=== PATIENT | female | born 1945 | race Caucasian/White ===

== ENCOUNTER 2018-07-20 18:01 | Emergency (ER) | payer OTHER ==
[2018-07-20] MEDS ORDERED: IPRATROPIUM BROM 0.5MG/2.5ML ONE (18:33)
[2018-07-20] MEDS ORDERED: LEVALBUTEROL 1.25 MG/3 ML NEB ONE (18:33)
--- NOTE | 2018-07-20 19:09 | RAD REPORT ---
EXAM DESCRIPTION: RAD - Chest Pa And Lat (2 Views) - 07/20/2018 7:02 pm CLINICAL HISTORY: Cough;Congestion Chest pain. COMPARISON: Chest Pa And Lat (2 Views) dated 05/07/2018; Chest Pa And Lat (2 Views) dated 01/23/2017; C HEST SINGLE VIEW dated 10/31/2014 FINDINGS: The lungs are emphysematous with mild linear opacities in both lung bases likely represent ing subsegmental atelectasis. The heart is normal in size. No displaced fractures. Aortic atheroscler osis. IMPRESSION: COPD with linear subsegmental atelectasis in both lung bases.
--- NOTE | 2018-07-20 19:37 | EDPHYS ---
Physician Documentation [facility] Name: Shwetha Chirinos Age: 73 yrs Sex: Female : 1945 Arrival Date: 07/20/2018 Time: 18:02 Bed 25 Private MD: Jony Block ED Physician Surinder Kong HPI: 07/20 18:37 This 73 yrs old Female presents to ER via Ambulatory with complaints of kb Cough, Breathing Difficulty. 18:37 The patient or guardian reports cough, that is intermittent, described as moderate, kb with no sputum. Onset: The symptoms/episode began/occurred 9 day(s) ago. Severity of symptoms: At their worst the symptoms were moderate, in the emergency department the symptoms are unchanged. Modifying factors: The symptoms are alleviated by nothing, the symptoms are aggravated by nothing. Associated signs and symptoms: Pertinent negatives: chest pain, diarrhea, ear ache, fever, nausea, rhinorrhea, sore throat, vomiting. The patient has not experienced similar symptoms in the past. The patient has not recently seen a physician. Pt reports cough and shortness of breath that started 9 days ago and has gotten worse. Called Dr Nuñez's office on Saturday and they called in Doxycycline and prednisone but it hasn't been helping . Historical: - Allergies: 18:19 Codeine; sg - PMHx: 18:19 COPD; Hypertension; sg - PSHx: 18:10 Tonsillectomy; Hysterectomy; hand surgery; catarac surgery; Cholecystectomy; sg - Immunization history:: Adult Immunizations up to date. - Social history:: Smoking status: Patient/guardian denies using tobacco. - Ebola Screening: : Patient negative for fever greater than or equal to 101.5 degrees Fahrenheit, and additional compatible Ebola Virus Disease symptoms Patient denies exposure to infectious person Patient denies travel to an Ebola-affected area in the 21 days before illness onset No symptoms or risks identified at this time. ROS: 18:36 Constitutional: Negative for fever, chills, and weight loss, Cardiovascular: Negative kb for chest pain, palpitations, and edema, Abdomen/GI: Negative for abdominal pain, nausea, vomiting, diarrhea, and constipation, Back: Negative for injury and pain, : Negative for injury, bleeding, discharge, and swelling, MS/Extremity: Negative for injury and deformity, Skin: Negative for injury, rash, and discoloration, Neuro: Negative for headache, weakness, numbness, tingling, and seizure. 18:36 Respiratory: Positive for cough, with no reported sputum, shortness of breath, Negative for dyspnea on exertion, hemoptysis, orthopnea, pleurisy, sputum production, wheezing. Exam: 18:36 Constitutional: This is a well developed, well nourished patient who is awake, alert, kb and in no acute distress. Head/Face: Normocephalic, atraumatic. Chest/axilla: Normal chest wall appearance and motion. Nontender with no deformity. No lesions are appreciated. Cardiovascular: Regular rate and rhythm with a normal S1 and S2. No gallops, murmurs, or rubs. Normal PMI, no JVD. No pulse deficits. Abdomen/GI: Soft, non-tender, with normal bowel sounds. No distension or tympany. No guarding or rebound. No evidence of tenderness throughout. Back: No spinal tenderness. No costovertebral tenderness. Full range of motion. Skin: Warm, dry with normal turgor. Normal color with no rashes, no lesions, and no evidence of cellulitis. MS/ Extremity: Pulses equal, no cyanosis. Neurovascular intact. Full, normal range of motion. Neuro: Awake and alert, GCS 15, oriented to person, place, time, and situation. Cranial nerves II-XII grossly intact. Motor strength 5/5 in all extremities. Sensory grossly intact. Cerebellar exam normal. Normal gait. 18:36 Respiratory: the patient does not display signs of respiratory distress, Respirations: normal, Breath sounds: wheezing: expiratory that is mild, is heard in the right posterior lower lobe. Vital Signs: 18:17 BP 122 / 70; Pulse 112; Resp 19 S; Temp 97.6; Pulse Ox 91% on R/A; Pain 0/10; sg 18:33 BP 127 / 90; Pulse 96; Resp 18; Pulse Ox 100% on R/A; tl3 19:55 BP 127 / 90; Pulse 92; Resp 18; Pulse Ox 96% on R/A; Pain 0/10; mg2 MDM: 18:20 Patient medically screened. kb 18:36 Data reviewed: vital signs, nurses notes. Data interpreted: Pulse oximetry: on room air kb is 100 %. Interpretation: normal. 19:35 Counseling: I had a detailed discussion with the patient and/or guardian regarding: the kb historical points, exam findings, and any diagnostic results supporting the discharge/admit diagnosis, radiology results, the need for outpatient follow up, a family practitioner, to return to the emergency department if symptoms worsen or persist or if there are any questions or concerns that arise at home. 07/20 18:26 Order name: Chest Pa And Lat (2 Views) XRAY; Complete Time: 19:10 kb Administered Medications: 18:37 Drug: Xopenex (3) 1.25 mg Route: Inhalation; tl3 19:57 Follow up: Response: No adverse reaction; Marked relief of symptoms mg2 18:37 Drug: AtroVENT Aerosol 0.5 mg Route: Inhalation; tl3 19:57 Follow up: Response: No adverse reaction; Marked relief of symptoms mg2 Disposition: 07/20/18 19:36 Discharged to Home. Impression: Chronic obstructive pulmonary disease, unspecified, Cough. - Condition is Stable. - Discharge Instructions: Chronic Obstructive Pulmonary Disease, Cough, Adult, [id number]. - Prescriptions for Albuterol Sulfate 90 mcg/actuation - inhale 1-2 puff by INHALATION route every 4-6 hours; 1 Inhaler. - Medication Reconciliation Form, Thank You Letter, Antibiotic Education, Prescription Opioid Use form. - Follow up: Emergency Department; When: As needed; Reason: Worsening of condition. Follow up: Private Physician; When: 2 - 3 days; Reason: Recheck today's complaints, Continuance of care, Re-evaluation by your physician. - Notes: Continue Doxycycline and prednisone prescribed by Dr Nuñez Addendum: 07/28/2018 16:39 Co-signature as Attending Physician, Surinder Kong MD. g s Signatures: Dispatcher [employer] EDMS Janessa Arenas, RESEARCH CLERK-C RESEARCH CLERK-Ckb Adriano Zafar, TORRES MACDONALD sg Surinder Kong MD MD Mrina Ann, RN RN tl3 Zheng Rosa, TORRES RN mg2 Corrections: (The following items were deleted from the chart) 07/20 19:57 19:36 07/20/2018 19:36 Discharged to Home. Impression: Chronic obstructive pulmonary mg2 disease, unspecified; Cough. Condition is Stable. Forms are Medication Reconciliation Form, Thank You Letter, Antibiotic Education, Prescription Opioid Use. Follow up: Emergency Department; When: As needed; Reason: Worsening of condition. Follow up: Private Physician; When: 2 - 3 days; Reason: Recheck today's complaints, Continuance of care, Re-evaluation by your physician. kb
--- NOTE | 2018-07-20 19:37 | ER ---
Nurse's Notes [facility] Name: Shwetha Chirinos Age: 73 yrs Sex: Female : 1945 Arrival Date: 07/20/2018 Time: 18:02 Bed 25 Private MD: Jony Block Diagnosis: Chronic obstructive pulmonary disease, unspecified;Cough Presentation: 07/20 18:16 Presenting complaint: Patient states: I have had a productive cough, my chest feels sg heavy and im very wheezy. has put me on some new medication to help with this, but i have not gotten any better, its been about 3-4 days now. Transition of care: patient was not received from another setting of care. Onset of symptoms was July 20, 2018. Risk Assessment: Do you want to hurt yourself or someone else? Patient reports no desire to harm self or others. Initial Sepsis Screen:. Care prior to arrival: None. 18:16 Method Of Arrival: Ambulatory sg 18:16 Acuity: TAYLOR 3 sg 19:56 Initial Sepsis Screen: Does the patient meet any 2 criteria? No. Patient's initial mg2 sepsis screen is negative. Does the patient have a suspected source of infection? No. Patient's initial sepsis screen is negative. Historical: - Allergies: 18:19 Codeine; sg - PMHx: 18:19 COPD; Hypertension; sg - PSHx: 18:10 Tonsillectomy; Hysterectomy; hand surgery; catarac surgery; Cholecystectomy; sg - Immunization history:: Adult Immunizations up to date. - Social history:: Smoking status: Patient/guardian denies using tobacco. - Ebola Screening: : Patient negative for fever greater than or equal to 101.5 degrees Fahrenheit, and additional compatible Ebola Virus Disease symptoms Patient denies exposure to infectious person Patient denies travel to an Ebola-affected area in the 21 days before illness onset No symptoms or risks identified at this time. Screenin:33 Abuse screen: Denies threats or abuse. Nutritional screening: No deficits noted. tl3 Tuberculosis screening: No symptoms or risk factors identified. Fall Risk None identified. Assessment: 18:33 General: Appears comfortable, slender, well groomed, well developed, well nourished, tl3 Behavior is calm, cooperative, appropriate for age. Pain: Complains of pain in chest with cough. Neuro: Level of Consciousness is awake, alert, obeys commands, Oriented to person, place, time, situation, Appropriate for age. Cardiovascular: Patient's skin is warm and dry. Respiratory: Airway is patent Respiratory effort is even, unlabored, Respiratory pattern is regular, symmetrical. GI: No signs and/or symptoms were reported involving the gastrointestinal system. : No signs and/or symptoms were reported regarding the genitourinary system. EENT: No signs and/or symptoms were reported regarding the EENT system. Derm: No signs and/or symptoms reported regarding the dermatologic system. Musculoskeletal: No signs and/or symptoms reported regarding the musculoskeletal system. 19:56 Reassessment: Patient appears in no apparent distress at this time. Patient and/or mg2 family updated on plan of care and expected duration. Pain level reassessed. Patient is alert, oriented x 3, equal unlabored respirations, skin warm/dry/pink. Vital Signs: 18:17 BP 122 / 70; Pulse 112; Resp 19 S; Temp 97.6; Pulse Ox 91% on R/A; Pain 0/10; sg 18:33 BP 127 / 90; Pulse 96; Resp 18; Pulse Ox 100% on R/A; tl3 19:55 BP 127 / 90; Pulse 92; Resp 18; Pulse Ox 96% on R/A; Pain 0/10; mg2 ED Course: 18:02 Patient arrived in ED. mr 18:03 Jony Block MD is Private Physician. mr 18:09 Arm band placed on. sg 18:17 Triage completed. sg 18:20 [facility]C [facility] kb 18:20 Surinder Kong MD is Attending Physician. kb 18:25 Mirna Ann, TORRES is Primary Nurse. tl3 18:33 Patient has correct armband on for positive identification. Bed in low position. Call tl3 light in reach. Side rails up X 1. Adult w/ patient. Pulse ox on. NIBP on. Lights dimmed. Warm blanket given. Pillow given. 18:33 No provider procedures requiring assistance completed. tl3 19:02 Chest Pa And Lat (2 Views) XRAY In Process Unspecified. EDMS 19:56 Patient did not have IV access during this emergency room visit. mg2 Administered Medications: 18:37 Drug: Xopenex (3) 1.25 mg Route: Inhalation; tl3 19:57 Follow up: Response: No adverse reaction; Marked relief of symptoms mg2 18:37 Drug: AtroVENT Aerosol 0.5 mg Route: Inhalation; tl3 19:57 Follow up: Response: No adverse reaction; Marked relief of symptoms mg2 Outcome: 19:36 Discharge ordered by MD. marte 19:56 Discharged to home ambulatory, with family. mg2 19:56 Condition: stable 19:56 Discharge instructions given to patient, family, Instructed on discharge instructions, follow up and referral plans. medication usage, Demonstrated understanding of instructions, follow-up care, medications, Prescriptions given X 1. 19:57 Patient left the ED. mg2 Signatures: Dispatcher [employer] EDMS Janessa Arenas, E LEARNING SPECIALIST-C E LEARNING SPECIALIST-Ckb Adriano Zafar, RN RN Lynda Cuevas SethMirna RN RN tl3 Zheng Rosa RN RN mg2
[2018-07-20 20:27] VITALS: TEMP 97.6
[2018-07-20 20:29] VITALS: BP 127/90
[2018-07-20 20:30] VITALS: O2SAT 96
== END 2018-07-20 19:57 | disposition home or self-care (01) ==
LOC: ER 18:01
DX: J44.9 Chronic obstructive pulmonary disease, unspecified (principal); I10 Essential (primary) hypertension; Z88.5 Allergy status to narcotic agent
CPT/HCPCS: 71046; 99284

== ENCOUNTER 2019-06-05 07:14 | Day surgery (SDC) | payer OTHER, MEDICARE ==
--- OUTSIDE RECORDS SUMMARY | 2019-06-05 07:16 | XMS REPORT | Clinical Summary ---
:1945 Author Organization [facility] Address [address] [place] [address] Care Team Providers Name Role Phone Jony Block MD Primary Care Provider Allergies Not on File Medications Medication Sig Dispensed Refills Start Date End Date Status cyclobenzaprine cyclobenzaprine 10 mg tablet 0 Active (FLEXERIL) 10 mg Take 1 tablet 3 times a day by oral route as directed for 10 days. tablet rosuvastatin Crestor 40 mg tablet 0 Active (CRESTOR) 40 MG tablet mirabegron Myrbetriq 50 mg 0 Active (MYRBETRIQ) 50 mg tablet,extended tablet extended release release 24 hr solifenacin Vesicare 10 mg 0 Active (VESICARE) 10 MG tablet tablet albuterol (PROAIR ProAir HFA 90 0 Active HFA,PROVENTIL mcg/actuation HFA,VENTOLIN HFA) 90 aerosol inhaler mcg/actuation inhaler meloxicam (MOBIC) 15 Take 1 tablet (15 mg 30 tablet 1 12/12/2018 mg tablet total) by mouth 9 daily for 30 days. Active Problems Not on file Encounters Date Type Specialty Care Team Description 03/13/2019 Office Visit Orthopedic Surgery Scott Partida, Mid back pain (Primary Dx); Other secondary scoliosis, thoracolumbar region; Closed wedge compression fracture of eighth thoracic vertebra with routine healing, subsequent encounter; Closed wedge compression fracture of seventh thoracic vertebra with routine healing, subsequent encounter 01/30/2019 Office Visit Orthopedic Surgery Scott Partida, Mid back pain (Primary Dx); Other secondary scoliosis, thoracolumbar region 12/12/2018 Office Visit Orthopedic Surgery Wood, Scott B., Mid back pain (Primary Dx); Closed wedge compression fracture of seventh thoracic vertebra with routine healing, subsequent encounter; Closed wedge compression fracture of eighth thoracic vertebra with routine healing, subsequent encounter; Other secondary scoliosis, thoracolumbar region after 06/04/2018 Social History Tobacco Use Types Packs/Day Years Used Date Former Smoker Cigarettes 1 41 Alcohol Use Drinks/Week oz/Week Comments No Sex Assigned at Date Recorded Female 10/24/2018 11:40 AM [employer] Job Start Date Occupation Industry Not on file Not on file Not on file Travel History Travel Start Travel End No recent travel history available. Last Filed Vital Signs Vital Sign Reading Time Taken Blood Pressure - - Pulse - - Temperature - - Respiratory Rate - - Oxygen Saturation - - Inhaled Oxygen Concentration - - Weight 61.2 kg (135 lb) 12/12/2018 11:01 AM QUALITY ASSURANCE MONITOR FINAL Height 165.1 cm (5' 5") 12/12/2018 11:01 AM QUALITY ASSURANCE MONITOR FINAL Body Mass Index 22.47 12/12/2018 11:01 AM QUALITY ASSURANCE MONITOR FINAL Plan of Treatment Health Maintenance Due Date Last Done Comments BREAST CANCER SCREENING 1997 COLONOSCOPY SCREENING 1997 SHINGLES VACCINES (#1) 1997 65+ PNEUMOCOCCAL VACCINE (1 of 2 - PCV13) 2012 INFLUENZA VACCINE 05/21/2019 Procedures Procedure Name Priority Date/Time Associated Diagnosis Comments XR THORACIC SPINE 2 Routine 12/12/2018 10:39 AM Mid back pain Results for this VW QUAL[employer] ASS[employer]ANCE MONITOR FINAL procedure are in the results section. XR CERVICAL SPINE 2 Routine 12/12/2018 10:38 AM Neck pain Results for this OR 3 VW QUAL[employer] ASS[employer]ANCE MONITOR FINAL procedure are in the results section. after 06/04/2018 Results XR Thoracic Spine 2 Vw (12/12/2018 10:39 AM QUALITY ASSURANCE MONITOR FINAL) Specimen Narrative Performed At [facility] and lateral thoracic spine films are reviewed.These demonstrate the [facility] patient to be slightly out of balance to her left.There is a thoracic curvature which appears compensatory for a more significant lumbar deformity.Lateral view demonstrates chronic appearing fractures at approximately T8 and T7.This creates hyperlordosis of the thoracic spine on the lateral view.There is also disc space narrowing consistent with degeneration at multiple levels of the thoracic spine.She is overall subjectively osteopenic.Sagittal balance may be slightly forward though is difficult to tell on these radiographs alone Performing Organization Address City/State/Zipcode Phone Number [facility] [phone] [place] [address] XR Cervical Spine 2 Or 3 Vw (12/12/2018 10:38 AM QUALITY ASSURANCE MONITOR FINAL) Specimen Narrative Performed At [facility] and lateral views of the cervical spine are reviewed.These [facility]IANT demonstrate disc space narrowing consistent with degeneration as well as small uncovertebral osteophytes at C4-5 and C5-6 most notably.There are osteophytes off the facet joints bilaterally throughout the cervical spine.Lateral view demonstrates significant disc space narrowing at C4-5, C5-6 and slightly less at C6-C7.There is anterior osteophytes in each of those levels as well.There is no evidence of instability Performing Organization Address City/State/Zipcode Phone Number [facility] [address] [place] [address] after 06/04/2018 Insurance Payer Benefit Plan / Subscriber ID Effective Dates Phone Address Type Group MEDICARE MEDICARE PART A xxxxxxxxxxx 2012-Present [place], [place] Medicare AND B AARP AARP SUPPLEMENT xxxxxxxxxxx 2018-Present Commercial Advance Directives Patient has advance care planning documents on file. For more information, please contact:Tyrone Garcia[address] [place] [address]
--- OUTSIDE RECORDS SUMMARY | 2019-06-05 07:16 | XMS REPORT ---
:1945 Author Organization [employer] Care Team Providers Name Role Phone Guru Schmid Provider Role Unavailable Allergies, Adverse Reactions, Alerts Substance Reaction Event Type codeine Info Not Available Drug Allergy Problems Problem Type Condition Code Onset Dates Condition Status Assessment Encounter for screening colonoscopy Z12.11 Active Problem Crohn''s disease with complication, K50.919 Active unspecified gastrointestinal tract location Assessment Crohn''s disease with complication, K50.919 Active unspecified gastrointestinal tract location Medications Medication Code Code Instructions Start End Status Dosage System Date Date PredniSONE [facility] 86084780922 10 MG Orally Active 1 tablet Once a day Rosuvastatin [facility] 03944577287 40 MG Orally Active 1 tablet Calcium Once a day Omeprazole [facility] [id number] 40 MG Orally Active 1 capsule Once a day Results No Known Results Summary Purpose [employer] Submission
[2019-06-05] MEDS ORDERED: Ringers Lactate 1,000 ML IV ONE (07:42)
[2019-06-05] MEDS ORDERED: PROPOFOL 200 MG/20 ML VIAL IV ONE (08:30)
[2019-06-05] MEDS ORDERED: LIDOCAINE 1% MPF 5 ML VIAL ONE (08:30)
--- NOTE | 2019-06-05 09:40 | ENDO RPT ---
[address], [address] EGD PROCEDURE REPORT EXAM DATE: 06/05/2019 PATIENT NAME: Shwetha Chirinos MR#: [id number] BIRTHDATE: 1945 ATTENDING: Guru Schmid DR STATUS: outpatient VIDEO EDITOR: Chuy Leung, Cynthia Leung, and Chantel Osborne RN INDICATIONS: The patient is a 73 yr old Female here for an EGD due to History of Crohns and GERD PROCEDURE PERFORMED: EGD with biopsy for H. pylori MEDICATIONS: Per Anesthesia. TOPICAL ANESTHETIC: none CONSENT: The patient understands the risks and benefits of the procedure and understands that these risks include, but are not limited to: sedation, allergic reaction, infection, perforation and/or bleeding. Alternative means of evaluation and treatment include, among others: physical exam, x-rays, and/or surgical intervention. The patient elects to proceed with this endoscopic procedure. DESCRIPTION OF PROCEDURE: During intra-op preparation period all mechanical medical equipment was checked for proper function. Hand hygiene and appropriate measures for infection prevention was taken. Procedure, possible complications, and alternatives including but not limited to the possibility of bleeding, perforation, tear, infection, sepsis, need for surgery, need for blood transfusion, and anesthesia related complications were explained to the patient. After the risks, benefits and alternatives of the procedure were thoroughly explained, Informed consent was verified, confirmed and timeout was successfully executed by the treatment team. The patient was placed in the left lateral position. The patient was anesthetized with topical anesthesia. Through the anesthetized oropharyngeal area, the scope was passed without any difficulty. The Pentax EG-[id number] ([id number]) endoscope was introduced through the mouth and advanced to the third portion of the duodenum. Retroflexed views revealed a small hiatal hernia. The gastroscope was then slowly withdrawn and removed. Mild Atrophic gastritis was found in the body and the antrum of the stomach. A biopsy for H. pylori was taken. A small hiatal hernia was found A biopsy for H. pylori was taken. ADVERSE EVENTS: There were no complications. IMPRESSIONS: 1. Mild Atrophic gastritis was found in the body and the antrum of the stomach 2. A small hiatal hernia was found RECOMMENDATIONS: 1. acid suppression therapy 2. anti-reflux regimen 3. await biopsy results 4. follow-up: office 2 week(s) 5. avoid NSAIDS 6. follow-up of helicobacter pylori status, treat if indicated REPEAT EXAM: for EGD. Pending Biopsy Results Guru Schmid DR eSigned: Guru Schmid DR 06/05/2019 9:39 AM cc: CPT CODES: ICD9 CODES: PATIENT NAME: Shwetha Chirinos MR#: [id number]
--- NOTE | 2019-06-05 09:43 | ENDO RPT ---
[address], [address] COLONOSCOPY PROCEDURE REPORT EXAM DATE: 06/05/2019 PATIENT NAME: Shwetha Chirinos MR #: [id number] BIRTHDATE: 1945 ATTENDING: Guru Schmid DR STATUS: outpatient FUND MANAGER: Chantel Osborne RN, Cynthia Leung, and Chuy Leung INDICATIONS: The patient is a 73 yr old Female here for a colonoscopy due to follow-up of Crohn's disease PROCEDURE PERFORMED: Colonoscopy with biopsy MEDICATIONS: Per Anesthesia. ESTIMATED BLOOD LOSS: None CONSENT: The patient understands the risks and benefits of the procedure and understands that these risks include, but are not limited to: sedation, allergic reaction, infection, perforation and/or bleeding. Alternative means of evaluation and treatment include, among others: physical exam, x-rays, and/or surgical intervention. The patient elects to proceed with this endoscopic procedure. DESCRIPTION OF PROCEDURE: During intra-op preparation period all mechanical medical equipment was checked for proper function. Hand hygiene and appropriate measures for infection prevention was taken. Procedure, possible complications, alternatives including, but not limited to possibility of bleeding, perforation, tear, infection, sepsis, need for surgery, need for blood transfusion, were explained to the patient. After the risks, benefits and alternatives of the procedure were thoroughly explained, Informed consent was verified, confirmed and timeout was successfully executed by the treatment team. The patient was placed in the left lateral position. A digital rectal exam was performed and revealed a skin tag and A digital rectal exam was performed and revealed internal hemorrhoids. After appropriate level of anesthesia, the scope was passed. The [id number]) endoscope was introduced through the anus and advanced to the cecum, which was identified by both the appendix and ileocecal valve. The quality of the prep was good. The instrument was then slowly withdrawn as the colon was fully examined. Scope withdrawal time was 8 minutes. COLON FINDINGS: A small patch of abnormal mucosa was found at the splenic flexure. The mucosa was congested and erythematous. A biopsy of the area was performed using cold forceps. The colon mucosa was otherwise normal. Multiple random biopsies were performed. Retroflexed views revealed no abnormalities. The scope was then completely withdrawn from the patient and the procedure terminated. ADVERSE EVENTS: There were no complications. IMPRESSIONS: 1. Small abnormal mucosa was found at the splenic flexure; The mucosa was congested and erythematous; biopsy of the area was performed using cold forceps 2. The colon mucosa was otherwise normal; multiple random biopsies were performed RECOMMENDATIONS: 1. avoid NSAIDS for 2 weeks 2. await biopsy results 3. fiber rich diet 4. follow-up: office 2 week(s) 5. Monitor for any evidence of rectal bleeding. 6. yearly hemoquant 7. hemorrhoidal hygiene 8. increase dietary water RECALL: Return in 3 year(s) for Colonoscopy, pending biopsy results. Pending Biopsy Results Guru Schmid DR eSigned: Guru Schmid DR 06/05/2019 9:42 AM cc: CPT CODES: ICD9 CODES: PATIENT NAME: Shwetha Chirinos MR#: [id number]
[2019-06-05 10:05] VITALS: O2SAT 99
[2019-06-05 10:06] VITALS: BP 137/73; TEMP 97
== END 2019-06-05 10:12 | disposition home or self-care (01) ==
LOC: OR 07:14
PROVIDERS: ATTEND Surgery
PROC: 0DB98ZX Excision of Duodenum, Via Natural or Artificial Opening Endoscopic, Diagnostic (ICD-10-PCS; 2019-06-05)
PROC: 0DB78ZX Excision of Stomach, Pylorus, Via Natural or Artificial Opening Endoscopic, Diagnostic (ICD-10-PCS; 2019-06-05)
PROC: 0DB68ZX Excision of Stomach, Via Natural or Artificial Opening Endoscopic, Diagnostic (ICD-10-PCS; 2019-06-05)
PROC: 0DBH8ZX Excision of Cecum, Via Natural or Artificial Opening Endoscopic, Diagnostic (ICD-10-PCS; principal; 2019-06-05 08:30)
PROC: 0DBL8ZX Excision of Transverse Colon, Via Natural or Artificial Opening Endoscopic, Diagnostic (ICD-10-PCS; 2019-06-05 08:30)
DX: K50.90 Crohn's disease, unspecified, without complications (principal); K29.40 Chronic atrophic gastritis without bleeding; K21.9 Gastro-esophageal reflux disease without esophagitis; K44.9 Diaphragmatic hernia without obstruction or gangrene; K64.8 Other hemorrhoids; J44.9 Chronic obstructive pulmonary disease, unspecified; I10 Essential (primary) hypertension; Z87.891 Personal history of nicotine dependence; Z88.6 Allergy status to analgesic agent; Z90.49 Acquired absence of other specified parts of digestive tract; Z90.710 Acquired absence of both cervix and uterus; Z82.49 Family history of ischemic heart disease and other diseases of the circulatory system; Z83.6 Family history of other diseases of the respiratory system
CPT/HCPCS: 88312; 88305; 45380; 43239; J2704

== ENCOUNTER 2019-08-03 09:28 | Day surgery (SDC) | payer OTHER, MEDICARE ==
[2019-08-03 10:19] LABS: Absolute Lymphocytes (CBC) 1.3 K/uL (0.7-4.9); Basophils % 1.1 % (0-1.3); Hematocrit 36.7 % (36.0-45.0); Lymphocytes % 22.9 % (15.3-44.8); MPV 9.1 fL (7.6-11.3); RBC Red Blood Cell Count 3.98 M/uL (3.86-4.86)
[2019-08-03] MEDS ORDERED: Ringers Lactate 1,000 ML IV ONE ×2 (10:30→13:26)
[2019-08-03] MEDS ORDERED: CEFAZOLIN/SWI 1gm 1 GM/10 ML SYR ONE (10:30)
--- NOTE | 2019-08-03 10:35 | RAD REPORT ---
EXAM DESCRIPTION: RAD - Chest Pa And Lat (2 Views) - 08/03/2019 10:02 am CLINICAL HISTORY: PRE-OP Chest pain. COMPARISON: Chest Pa And Lat (2 Views) dated 07/20/2018; Chest Pa And Lat (2 Views) dated 05/07/2018; Chest Pa And Lat (2 Views) dated 01/23/2017; CHEST SINGLE VIEW dated 10/31/2014 FINDINGS: The lungs are emphysematous but clear of acute infiltrate. The heart is mildly prominent s ize with a tortuous thoracic aorta. No displaced fractures. IMPRESSION: Mild COPD.
[2019-08-03 10:41] LABS: Potassium 3.5 mmol/L (3.5-5.1)
[2019-08-03] MEDS ORDERED: BUPIVACA 0.5%/EPI 0.0005%/PF 30 ML VIAL ONE (11:15)
[2019-08-03] MEDS ORDERED: dexAMETHasone 10 MG/ML VIAL ONE (11:40)
[2019-08-03] MEDS ORDERED: PROPOFOL 200 MG/20 ML VIAL IV ONE (11:40)
[2019-08-03] MEDS ORDERED: ROCURONIUM 50 MG/5 ML VIAL IV ONE (11:40)
[2019-08-03] MEDS ORDERED: FENTANYL CITR 100 MCG/2 ML ONE (11:40)
[2019-08-03] MEDS ORDERED: LIDOCAINE 2% MPF 5 ML VIAL ONE (11:40)
[2019-08-03] MEDS ORDERED: MIDAZOLAM HCL 2 MG/2 ML INJ ONE (11:40)
[2019-08-03] MEDS ORDERED: EPHEDRINE SULF 50 MG/ML VIAL ONE (12:25)
--- NOTE | 2019-08-03 14:11 | P.OP ---
Preoperative diagnosis: Bilateral Inguinal Hernias Postoperative diagnosis: Bilateral Inguinal Hernias Primary procedure: Open Bilateral Inguinal Hernia Repairs with Mesh Anesthesia: GETA + Local Estimated blood loss: <10cc Specimen: Hernia Sack x 2 Findings: Bilateral Inguinal Hernias Complications: None Implants: Medium Bard Perfix Plug and Patch Hernia Repair Systems Transferred to: Recovery Room Condition: Good
[2019-08-03] MEDS: MORPHINE 4 MG/ML SYR ONE ×2 (14:40→14:45)
[2019-08-03] MEDS ORDERED: MORPHINE 4 MG/ML SYR ONE (14:54)
[2019-08-03] MEDS ORDERED: HYDROCODONE/APAP 5/325 MG TAB ONE (15:51)
--- NOTE | 2019-08-03 15:52 | EKG ---
Test Date: 2019-08-03 Test Time: 10:12:58 Market Development Specialist: LISA MEASUREMENT RESULTS: Intervals: Rate: 76 MN: 176 QRSD: 86 QT: 390 QTc: 438 [place]: P: 43 MN: 176 QRS: 12 T: 56 INTERPRETIVE STATEMENTS: Normal sinus rhythm Low voltage QRS Borderline ECG Compared to ECG 10/31/2014 13:25:34 Low QRS voltage now present Electronically Signed On 08-03-19 15:50:49 CDT by Addy Cotto
[2019-08-03 17:05] VITALS: BP 132/64; TEMP 97.3; O2SAT 94
--- NOTE | 2019-08-03 22:36 | OP ---
Date of Procedure: 08/03/2019 Surgeon: Guru Schmid MD, Preoperative Diagnosis: Bilateral inguinal hernias. Postoperative Diagnosis: Bilateral inguinal hernias. Procedure Performed: Open bilateral inguinal hernia repair with mesh. Anesthesia: General endotracheal plus local with 0.5% Marcaine with epinephrine. Estimated Blood Loss: Less than 10 mL. Specimens: Hernia sac x2. Findings: Bilateral inguinal hernias, indirect type. Complications: None. Implants: Medium Bard PerFix plug and patch hernia repair system was utilized, transferred to [facility] room in good condition. Procedure In Detail: After informed consent was obtained, patient was brought to the operating room and prepped and draped in the usual sterile fashion. After adequate anesthesia was achieved, the are a of the left groin was demarcated using anatomic landmarks between the anterior superior iliac spine and the pubic tubercle. The skin was anesthetized appropriately using 0.5% Marcaine with epinephrin e and a regional block, 1 cm inferior medial to the pubic tubercle was anesthetized for a regional bl ock. At this point, an incision was made over the skin using a 15 blade down to subcutaneous tissues with electrocautery to dissect down through Camper fat and Galilea fascia to expose the external obli que aponeurosis. The external oblique aponeurosis was incised sharply with a scalpel 15 blade and th e remainder of it was opened in its entirety to the deep and proximal inguinal ring using Metzenbaum scissors, protecting the ilioinguinal nerve throughout. At this point, I dissected all the underlyin g tissues off and expose the hernia defect. The round ligament was identified and encircled at this time. The fatty tissues were removed and the round ligament preperitoneal fat was removed. The harpal ia sac was then grasped, elevated, and dissected free from the round ligament. It was found to be in the indirect inguinal hernia with respect to the epigastric vessels. I then dissected the hernia sa c circumferentially until clear. I then opened hernia sac sharply with Metzenbaum scissors in its en tirety and exposed it down to the confluence of the peritoneum. I sized a medium Bard PerFix plug an d patch repair system. I placed anchoring sutures using a 0 PDS suture circumferentially around and placed the plug system in through the defect and unfurled it and secured it using the above-stated leung tures. The Bard mesh patch system was then brought on, sized appropriately, secured to the pubic tub ercle and along the medial and lateral shelving edges and the area was copiously irrigated multiple t imes until completely clear. Then the external oblique aponeurosis was closed in a running fashion w ith a 3-0 Vicryl suture with good approximation of the tissues. The skin was then copiously irrigate d. Camper fat and Galilea fascia were closed en bloc with a running 3-0 Vicryl suture and the skin wa s closed with a 4-0 Monocryl running fashion. Dermabond was placed over top. Patient tolerated the procedure well without evidence of complications and all counts were correct at the end of the case. SLADE/HONG Voice ID: [id number] Report ID: [id number]
--- NOTE | 2019-08-03 22:42 | OP ---
Date of Procedure: 08/03/2019 Surgeon: Guru Schmid MD, Preoperative Diagnosis: Bilateral inguinal hernias. Postoperative Diagnosis: Bilateral inguinal hernias. Procedure Performed: Open bilateral inguinal hernia repair with mesh. Anesthesia: General endotracheal plus local with 0.5% Marcaine with epinephrine. Estimated Blood Loss: Less than 10 mL. Specimens: Hernia sac x2. Findings: Bilateral inguinal hernias, indirect type. Complications: None. Implants: Medium Bard PerFix plug and patch hernia repair system was utilized, transferred to page hospital room in good condition. Procedure In Detail: After informed consent was obtained, patient was brought to the operating room and prepped and draped in the usual sterile fashion. After adequate anesthesia was achieved, the are a of the right groin was demarcated using anatomic landmarks between the anterior superior iliac spin e and the pubic tubercle. The skin was anesthetized appropriately using 0.5% Marcaine with epinephri ne and a regional block, 1 cm inferior medial to the pubic tubercle was anesthetized for a regional b lock. At this point, an incision was made over the skin using a 15 blade down to subcutaneous tissue s with electrocautery to dissect down through Camper fat and Galilea fascia to expose the external obl ique aponeurosis. The external oblique aponeurosis was incised sharply with a scalpel 15 blade and t he remainder of it was opened in its entirety to the deep and proximal inguinal ring using Metzenbaum scissors, protecting the ilioinguinal nerve throughout. At this point, I dissected all the underlyi ng tissues off and expose the hernia defect. The round ligament was identified and encircled at this time. The fatty tissues were removed and the round ligament preperitoneal fat was removed. The her lorena sac was then grasped, elevated, and dissected free from the round ligament. It was found to be i n the indirect inguinal hernia with respect to the epigastric vessels. I then dissected the hernia s ac circumferentially until clear. I then opened hernia sac sharply with Metzenbaum scissors in its e ntirety and exposed it down to the confluence of the peritoneum. I sized a medium Bard PerFix plug a nd patch repair system. I placed anchoring sutures using a 0 PDS suture circumferentially around and placed the plug system in through the defect and unfurled it and secured it using the above-stated s utures. The Bard mesh patch system was then brought on, sized appropriately, secured to the pubic tu bercle and along the medial and lateral shelving edges and the area was copiously irrigated multiple times until completely clear. Then the external oblique aponeurosis was closed in a running fashion with a 3-0 Vicryl suture with good approximation of the tissues. The skin was then copiously irrigat ed. Camper fat and Galilea fascia were closed en bloc with a running 3-0 Vicryl suture and the skin w as closed with a 4-0 Monocryl running fashion. Dermabond was placed over top. Patient tolerated the procedure well without evidence of complications and all counts were correct at the end of the case. SLADE/HONG Voice ID: [id number] Report ID: [id number]
== END 2019-08-03 17:02 | disposition home or self-care (01) ==
LOC: OR 09:28
PROVIDERS: ATTEND Surgery
PROC: 0YUA0JZ Supplement Bilateral Inguinal Region with Synthetic Substitute, Open Approach (ICD-10-PCS; principal; 2019-08-03 11:15)
DX: K40.20 Bilateral inguinal hernia, without obstruction or gangrene, not specified as recurrent (principal); J44.9 Chronic obstructive pulmonary disease, unspecified; K50.90 Crohn's disease, unspecified, without complications; K21.9 Gastro-esophageal reflux disease without esophagitis
CPT/HCPCS: 93005; 85025; 80048; 36415; 88302; 71046; 49505; J2704; J2250; J3010; J1100; J0690; J7120 ×2

== ENCOUNTER 2020-10-28 13:04 | Inpatient (IN) | payer OTHER, MEDICARE ==
--- OUTSIDE RECORDS SUMMARY | 2020-10-28 13:06 | XMS REPORT | Clinical Summary ---
:1945 Author Organization [facility] Address [address] [place] [address] Care Team Providers Name Role Phone Umair Ferrera MD, Antonia Primary Care Provider Allergies Not on File Medications Medication Sig Dispensed Refills Start Date End Date Status cyclobenzaprine cyclobenzaprine 10 mg tablet 0 Active (FLEXERIL) 10 mg Take 1 tablet 3 times a day by oral route as directed for 10 days. tablet rosuvastatin Crestor 40 mg tablet 0 Active (CRESTOR) 40 MG tablet mirabegron Myrbetriq 50 mg 0 Act [place] (MYRBETRIQ) 50 mg tablet,extended tablet extended release release 24 hr solifenacin Vesicare 10 mg 0 Act [place] (VESICARE) 10 MG tablet tablet albuterol (PROAIR ProAir HFA 90 0 Active HFA,PROVENTIL mcg/actuation HFA,VENTOLIN HFA) 90 aerosol inhaler mcg/actuation inhaler Active Problems Not on file Surgical History Surgery Date Site/Laterality Comments FOOT SURGERY spur HAND SURGERY trapesean implan t Medical History Medical History Date Comments Osteoarthritis Arthritis Scoliosis Social History Tobacco Use Types Packs/Day Years Used Date Former Smoker Cigarettes 1 41 Alcohol Use Drinks/Week oz/Week Comments No Sex Assigned at Date Recorded 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 Vital Signs Not on file Plan of Treatment Health Maintenance Due Date Last Done Comments COVID-19 VACCINE (#1) 1963 BREAST CANCER SCREENING 1997 COLONOSCOPY SCREENING 1997 SHINGLES VACCINES (#1) 1997 65+ PNEUMOCOCCAL VACCINE (1 of 1 - PPSV23) 2012 INFLUENZA VACCINE 05/21/2020 Results Not on fileafter 10/28/2019 Insurance Payer Benefit Plan / Subscriber ID Effective Dates Phone Addre ss Type Group MEDICARE MEDICARE PART A [id number] 2012-Present [place], [place] Medicare AND B AARP AARP SUPPLEMENT [id number] 2018-Present Commercial Advance Directives For more information, please contact: [phone] Type Date Recorded 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
--- OUTSIDE RECORDS SUMMARY | 2020-10-28 13:06 | XMS REPORT | Summary of Care ---
:1945 Author Organization [facility] - Health Address [address] [place] [address] Care Team Providers Name Role Phone Tejal Vital MD Primary Care Provider [phone] Brittany Nuñez Unavailable Doris Cardiology Coordinator Mary Ann Salazar MD Unavailable Encounter Details Date Type Department Care Team Description 08/26/2020 Letter (Out) [facility] Connolly Message s Doctor Unassigned, No [address] [facility] [place] [address] [address] [facility] [phone] [place] [address] Allergies Active Allergy Reactions Severity Noted Date Comments Codeine Other - See comments 02/10/2020 Makes h er feel spacey/goofy Nitrofurantoin Other - See comments 05/17/2020 Sever e leg/hip pain Monohyd/M-Cryst documented as of this encounter (statuses as of 08/26/2020) Medications Medication Sig Dispensed Refills Start Date End Date Status omeprazole 40 mg Take 40 mg by 0 Active capsule mouth daily. ipratropium 0.02 % Inhale 2.5 mL 2 0 02/29/2020 Active nebulizer solution (two) times daily as needed. predniSONE 10 mg Take 10 mg by 0 Active tablet mouth as needed (wheezing). tiotropium 18 mcg Inhale 18 mcg 0 Active inhalation daily. ergocalciferol, Take 1 capsule by 12 capsule 3 06/06/2020 Active vitamin d2, (VITAMIN mouth weekly. D2) 1,250 mcg (50,000 unit) capsuleIndications: Vitamin D deficiency documented as of this encounter (statuses as of 08/26/2020) Active Problems Problem Noted Date Arthritis Overview: mainly in hands/fingers COPD (chronic obstructive pulmonary disease) Crohn disease GERD (gastroesophageal reflux disease) documented as of this encounter (statuses as of 08/26/2020) Social History Tobacco Use Types Packs/Day Years Used Date Former Smoker Cigarettes Quit: 06/02/20 03 Smokeless Tobacco: Never Used Alcohol Use Drinks/Week oz/Week Comments Yes seldom Sex Assigned at Date Recorded Not on file COVID-19 Exposure Response Date Recorded In the last month, have you been in contact with No / Unsure 08/26/2020 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 documented as of this encounter Last Filed Vital Signs Not on filedocumented in this encounter Plan of Treatment Health Maintenance Due Date Last Done Comments HEPATITIS C (HCV) SCREEN 1945 DTaP,Tdap,and Td Vaccines (1 - Tdap) 1966 Breast Cancer Screening (MAMMOGRAM) 1987 COLON CANCER SCREENING ANNUAL FIT/FOBT 1997 COLON CANCER SCREENING FIT DNA EVERY 3 YEARS 1997 COLON CANCER SCREENING SIGMOIDOSCOPY EVERY 5 YEARS 1997 COLONOSCOPY 1997 Colorectal Cancer Screening 1997 Zoster Recombinant Vaccine (SHINGRIX) (1 of 2) 1997 Medicare Wellness Visit 2012 Osteoporosis Screening 2012 PNEUMOCOCCAL VACCINES 65+ (1 of 1 - PPSV23) 2012 INFLUENZA VACCINE (#1) 2020 Depression Screening 05/19/2021 05/19/2020 documented as of this encounter Results Not on filedocumented in this encounter Insurance Payer Benefit Plan / Subscriber ID Effective Phone Address T ype Group Dates MEDICARE MEDICARE PART [id number] 2012-Pre [phone] [address] [employer] sent [phone] ABDOULAYE T[place] [phone] [facility] [id number] 2019-Pre [address] [facility] sent [id number] Supplement MEDICARE [place] SUPPLEMENT ABDOULAYE IRWIN [id number] documented as of this encounter
--- OUTSIDE RECORDS SUMMARY | 2020-10-28 13:06 | XMS REPORT | Continuity of Care Document ---
:1945 Author Organization [facility] t Address [address] [place] [address] Care Team Providers Name Role Phone Umair Ferrera MD, Juane Primary Care Physician [phone] Gino BLEDSOE Attending Clinician Maia Vital MD Attending Clinician Problems Condition Condition Condition Status Onset Resolution Last Treating Co mments Source Name Details Category Date Date Treatment Clinician Date Crohn''s Crohn''s Problem [facility] with [facility] complicati complicati l on, on, Outpati unspecifie unspecifie en t d d Clinics gastrointe gastrointe stinal stinal tract tract location location Crohns Crohns Problem Active [facility] Non-recurr Non-recurr Diagnosis Active [facility] - bilateral bilateral Siva laura inguinal inguinal l hernia hernia Outpati without without ent obstructio obstructio Cl inics n or n or gangrene gangrene Allergies, Adverse Reactions, Alerts Allergy Allergy Status Severity Reaction(s) Onset Inactive Treating Comm ents Source Name Type Date Date Clinician codeine Adverse Active Info Not [facility] Reaction Available [facility] Social History Social Habit Start Date Stop Date Quantity Comments Source History of tobacco Cigarette Smoker [facility] use [facility] Sex Assigned At F [facility] Cigarettes smoked 2018-12-12 2018-12-12 [facility] current (pack per 00:00:00 00:00:[address] day) - Reported Cigarette 2018-12-12 2018-12-12 [facility] pack-years 00:00:00 00:00:00 [facility] Alcohol intake 2018-12-12 2018-12-12 Current [facility] 00:00:00 00:00:00 non-drinker of [facility] alcohol (finding) Smoking Status Start Date Stop Date Source Former smoker 2018-12-12 00:00:00 2018-12-12 00:00:00 [facility] Medications Ordered Filled Start Stop Current Ordering Indication Dosage Frequency Signature Comments Components Source Medication Medication Date Date Medication? Clinician (SIG) Name Name Omeprazole Omeprazole Yes Guru [address] [facility] 8-16 K[facility]v [facility] - 00:00: [facility] 00 [facility] rosuvastati Yes Crestor 40 Hansen n (CRESTOR) 2-22 mg tablet Met hodi 40 MG 16:34: st tablet 22 mirabegron Yes Myrbetriq Ho valerie (MYRBETRIQ) 2-22 50 mg [facility] 50 mg 16:34: tablet,ext st tablet 22 ended extended release release 24 hr solifenacin Yes Vesicare [place] (VESICARE) 2-22 10 mg [facility] 10 MG 16:34: tablet st tablet 22 albuterol Yes ProAir HFA Ho valerie (PROAIR 2-22 90 [facility] HFA,PROVENT 16:34: mcg/actuat st [place] 22 ion HFA,VENTOLI aerosol N HFA) 90 inhaler mcg/actuati on inhaler cyclobenzap Yes cyclobenza [facility] rine 2-22 shanell 10 [facility]i (FLEXERIL) 16:34: mg tablet st 10 mg 21 Take 1 tablet tablet 3 times a day by oral route as directed for 10 days. Rosuvastati Rosuvastati Yes Guru [address] n Calcium n Calcium Kovacev Gita kes - [facility] ent [facility] PredniSONE PredniSONE Yes Guru [address] [facility] [facility] Procedures This patient has no known procedures. Plan of Care Planned Activity Planned Date Details Comments Source Future Scheduled 2020-05-21 INFLUENZA VACCINE [place] [facility] Test 00:00:00 [code = INFLUENZA VACCINE] Future Scheduled 2012 65+ PNEUMOCOCCAL [facility] Test 00:00:00 VACCINE (1 of 1 - PPSV23) [code = 65+ PNEUMOCOCCAL VACCINE (1 of 1 - PPSV23)] Future Scheduled 1997 BREAST CANCER [facility] Test 00:00:00 SCREENING [code = BREAST CANCER SCREENING] Future Scheduled 1997 COLONOSCOPY SCREENING [place] [facility] Test 00:00:00 [code = COLONOSCOPY SCREENING] Future Scheduled 1997 SHINGLES VACCINES (#1) [place] [facility] Test 00:00:00 [code = SHINGLES VACCINES (#1)] Future Scheduled 1963 COVID-19 VACCINE (#1) [place] [facility] Test 00:00:00 [code = COVID-19 VACCINE (#1)] Encounters Start End Encounter Admission Attending Care Care Encounter Source Date/Time Date/Time Type Type Clinicians Facility Department ID 2020-10-26 2020-10-26 Urgent [facility] [id number] 30 19:10:20 19:41:18 Care [facility] [id number] [place] [id number] Professio [phone] [place] [id number] [address] 2020-09-20 2020-09-20 [facility] [id number] 00:00:00 00:00:00 Tejal Knight [id number] [place] [id number] Professio [phone] [address] 2020-08-26 2020-08-26 Office [facility] [id number] 10:00:41 11:52:04 Visit Tejal Knight [id number] [place] [id number] Professio [phone] [address] 2019-06-17 2019-06-17 Outpatient Bere Duque [id number] [facility] [address] 08:45:00 08:45:00 t Specialty/U Gita kes - Specialty rology [facility] a /Urology Clinic l Clinic Outpati ent Clinics 2019-06-05 2019-06-05 Outpatient Bere Duque [id number] [address] 10:44:00 10:44:00 t Specialty/U Gita kes - Specialty rology [facility] a /Urology Clinic l [facility] Clinics 2019-05-26 2019-05-26 Outpatient Bere Blackburnlinus [id number] [facility] 13:30:00 13:30:00 t Specialty/U Gita floress - Specialty rology [facility] a /Urology Clinic l [facility] Results This patient has no known results.
--- OUTSIDE RECORDS SUMMARY | 2020-10-28 13:07 | XMS REPORT | Summary of Care ---
:1945 Author Organization [facility] - Health Address [address] [place] [id number] Care Team Providers Name Role Phone Tejal Vital MD Primary Care Provider Brittany Nuñez Unavailable Doris [employer] Solution Architect Mary Ann Salazar MD Unavailable Reason for Visit Reason Comments Refill Request Encounter Details Date Type Department Care Team Description 08/30/2020 Refill [facility] and Kary Vital, Refill Request Adult Primary Care- MD [facility] [address] [place] [address] [address] [address] [address] [place] [address] [place] [address] [phone] Allergies Active Allergy Reactions Severity Noted Date Comments Codeine Other - See comments 02/10/2020 Makes h er feel spacey/goofy Nitrofurantoin Other - See comments 05/17/2020 Sever e leg/hip pain Monohyd/M-Cryst documented as of this encounter (statuses as of 08/31/2020) Medications Medication Sig Dispensed Refills Start Date End Date Status omeprazole 40 mg Take 40 mg by 0 Active capsule mouth daily. predniSONE 10 mg Take 10 mg by 0 Active tablet mouth as needed (wheezing). tiotropium 18 Inhale 18 mcg 0 Ac tive mcg inhalation daily. ergocalciferol, Take 1 capsule 12 capsule 3 06/06/2020 Active vitamin d2, by mouth (VITAMIN D2) weekly. 1,250 mcg (50,000 unit) capsuleIndicatio ns: Vitamin D deficiency ipratropium 0.02 Inhale 2.5 mL 180 Vial 3 08/31/2020 Active % nebulizer 2 (two) times solutionIndicati daily as ons: Chronic needed for obstructive Wheezing or pulmonary Shortness of disease, Breath. unspecified COPD type ipratropium 0.02 Inhale 2.5 mL 180 Vial 3 08/26/2020 08/31/20 2 Discontinued % nebulizer 2 (two) times 0 (Reo rder) solutionIndicati daily as ons: Chronic needed for obstructive Wheezing or pulmonary Shortness of disease, Breath. unspecified COPD type documented as of this encounter (statuses as of 08/31/2020) Active Problems Problem Noted Date Arthritis Overview: mainly in hands/fingers COPD (chronic obstructive pulmonary disease) Crohn disease GERD (gastroesophageal reflux disease) documented as of this encounter (statuses as of 08/31/2020) Immunizations Name Administration Dates Next Due Influenza High Dose 06/26/2020, 06/26/2019, 06/26/2018 Pneumococcal Polysaccharide, PPSV23 08/26/2020 (PNEUMOVAX) documented as of this encounter Social History Tobacco Use Types Packs/Day Years Used Date Former Smoker Cigarettes Quit: 06/02/20 03 Smokeless Tobacco: Never Used Alcohol Use Drinks/Week oz/Week Comments Yes seldom Sex Assigned at Date Recorded Not on file COVID-19 Exposure Response Date Recorded In the last month, have you been in contact with No / Unsure 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 documented as of this encounter Last Filed Vital Signs Not on filedocumented in this encounter Plan of Treatment Date Type Specialty Care Team Description 12/06/2020 Trommel Tender Visit Phlebotomy 2, [facility] 01/06/2021 Office Visit Internal Medicine Marzena Vital MD [address] [address] [phone] 01/06/2021 Office Visit Internal Medicine Marzena Vital MD [address] [address] [phone] Health Maintenance Due Date Last Done Comments HEPATITIS C (HCV) SCREEN 1945 Breast Cancer Screening 1987 (MAMMOGRAM) COLON CANCER SCREENING ANNUAL 1997 FIT/FOBT COLON CANCER SCREENING FIT 1997 DNA EVERY 3 YEARS COLON CANCER SCREENING 1997 SIGMOIDOSCOPY EVERY 5 YEARS Medicare Wellness Visit 2012 Osteoporosis Screening 2012 Depression Screening 05/19/2021 05/19/2020 DTaP,Tdap,and Td Vaccines (1 08/26/2021 Pos tponed from 1966 - Tdap) (Insurance / Fin ancial) Zoster Recombinant Vaccine 08/26/2021 Postp oned from 1997 (SHINGRIX) (1 of 2) (Insurance / Financial) COLONOSCOPY 06/03/2029 06/03/2019 Colorectal Cancer Screening 06/03/2029 INFLUENZA VACCINE Completed 06/26/2020, 06/26/2019, 06/26/2018 PNEUMOCOCCAL VACCINES 65+ Completed 08/26/2020 documented as of this encounter Results Not on filedocumented in this encounter Visit Diagnoses Diagnosis Chronic obstructive pulmonary disease, u nspecified COPD type documented in this encounter Insurance Payer Benefit Plan / Subscriber ID Effective Phone Address T ype Group Dates MEDICARE MEDICARE PART [id number] 2012-Pre [phone] [address] [employer] sent [phone] [place] [phone] [facility] [id number] 2019-Pre [address] [facility] sent [id number] Supplement MEDICARE [place] SUPPLEMENT ABDOULAY[place]WIN [id number] documented as of this encounter
--- OUTSIDE RECORDS SUMMARY | 2020-10-28 13:07 | XMS REPORT | Summary of Care ---
:1945 Author Organization [facility] - [facility] Address [address] [place] [id number] Care Team Providers Name Role Phone Tejal Vital MD Primary Care Provider [phone] Brittany Nuñez Unavailable Doris Contracts Law Professor Mary Ann Salazar MD Unavailable Reason for Visit Reason Comments Cough Dry cough 2xdays Headache today Encounter Details Date Type Department Care Team Description 10/26/2020 Urgent Care [facility] Family Wendy Pierce, REGIONAL ADMINISTRATIVE ASSISTANT [address] [facility] [address] [place], [place] [id number] COVID-19 virus infection (Primary Dx); Medicine - [place] Virginia Christian, [facility] [address] [place] [address] Exposure to SARS-associated coronavirus; [address] [facility] [place] [phone] Allergies Active Allergy Reactions Severity Noted Date Comments Codeine Other - See comments 02/10/2020 Makes h er feel spacey/goofy Nitrofurantoin Other - See comments 05/17/2020 Sever e leg/hip pain Monohyd/M-Cryst documented as of this encounter (statuses as of 10/26/2020) Medications Medication Sig Dispensed Refills Start Date [...] mcg (50,000 unit) capsuleIndications: Vitamin D deficiency ipratropium 0.02 % Inhale 2.5 mL 2 180 Vial 3 08/31/2020 Active nebulizer (two) times daily solutionIndications: as needed for Chronic obstructive Wheezing or pulmonary disease, Shortness of unspecified COPD type Breath. ondansetron (ZOFRAN Take 1 tablet by 8 tablet 0 10/26/2020 Active ODT) 4 mg mouth every 8 disintegrating (eight) hours as tabletIndications: needed for N/V Nausea unresponsive to Promethazine. documented as of this encounter (statuses as of 10/26/2020) Active Problems Problem Noted Date Arthritis Overview: mainly in hands/fingers COPD (chronic obstructive pulmonary disease) Crohn disease GERD (gastroesophageal reflux disease) documented as of this encounter (statuses as of 10/26/2020) Immunizations Name Administration Dates Next Due Influenza High Dose 06/26/2020, 06/26/2019, 06/26/2018 Pneumococcal Polysaccharide, PPSV23 08/26/2020 (PNEUMOVAX) documented as of this encounter Social History Tobacco Use Types Packs/Day Years Used Date Former Smoker Cigarettes Quit: 06/02/20 03 Smokeless Tobacco: Never Used Tobacco Cessation: Counseling Given: No Alcohol Use Drinks/Week oz/Week Comments Yes seldom Sex Assigned at Date Recorded Not on file documented as of this encounter Last Filed Vital Signs Vital Sign Reading Time Taken Comments Blood Pressure 132/83 10/26/2020 7:21 PM [facility] Pulse 105 10/26/2020 7:16 PM [facility] Temperature 36.6 C (97.9 F) 10/26/2020 7:16 PM [facility] Respiratory Rate 18 10/26/2020 7:16 PM [facility] Oxygen Saturation 93% 10/26/2020 7:16 PM [facility] Inhaled Oxygen Concentration - - Weight 60.3 kg (133 lb) 10/26/2020 7:16 PM [facility] Height 165.1 cm (5' 5") 10/26/2020 7:16 PM [facility] Body Mass Index 22.13 10/26/2020 7:16 PM [facility] [employer] documented in this encounter Patient Instructions Patient InstructionsVirginia Christian FNP - 10/26/2020 7:00 PM [facility] Patient Education Coronavirus Disease 2019 (COVID-19): Caring for Yourself and Others If you or a household member have symptoms of COVID-19, follow the guidelines below for preventing spread of the virus, and managing symptoms. If you think you have COVID-19 symptoms Stay home. Call your healthcare provider and tell them you have symptoms of COVID-19. Do this before going to any hospital or clinic. Follow your provider's instructions. You may be advised to isolate yourself at home. This is called self-isolation. Dont panic. Keep in mind that other illnesses can cause similar symptoms. Stay away from work, school, and public places. Limit physical contact with family members. Limitvisitors. Don't kiss anyone or share eating or drinking utensils. Clean surfaces you touch with disinfectant. This is to help prevent the virus from spreading. If you need to cough or sneeze, do it into a tissue. Then throw the tissue into the trash. If youdon't have tissues, cough or sneeze into the bend of your elbow. Dont share food or personal items with people in your household. This includes items like eating and drinking utensils, towels, and bedding. Wear a cloth face mask around other people. During a public health emergency, medical face masks may be reserved for healthcare workers. You may need to make a cloth face mask of your own. You can do this using a bandana, T-shirt, or other cloth. The CDC has instructions on how to make a face mask.Wear the mask so that it covers both your nose and mouth. If you need to go to a hospital or clinic, expect that the healthcare staff will wear protective equipment such as masks, gowns, gloves, and eye protection. You may be put in a separate room. This is to prevent the possible virus from spreading. Tell the healthcare staff about recent travel. This includes local travel on public transport. Staff may need to find other people you have been in contact with. Follow all instructions the healthcare staff give you. If you have been diagnosed with COVID-19 Stay home and start self-isolation. Dont leave your home unless you need to get medical care. Don't go to work, school, or public areas. Don't use public transportation or taxis. Follow all instructions from your healthcare provider. Call your healthcare providers office before going. They can prepare and give you instructions. This will help prevent the virus from spreading. If you need to go to a hospital or clinic, expect that the healthcare staff will wear protective equipment such as masks, gowns, gloves, and eye protection. You may be put in a separate room. This is to prevent the possible virus from spreading. Wear a face mask. This is to protect other people from your germs. If you are not able to wear a mask, your caregivers should. During a public health emergency, medical face masks may be reserved for healthcare workers. You may need to make a cloth face mask of your own. You can do this using a bandana, T- shirt, or other cloth. The [facility] has instructions on how to make a face mask. Wear the mask so that it covers both your nose and mouth. Stay away from other people in your home. Have no contact with pets and animals. Dont share food or personal items with people in your household. This includes items like eating and drinking utensils, towels, and bedding. If you need to cough or sneeze, do it into a tissue. Then throw the tissue into the trash. If youdon't have tissues, cough or sneeze into the bend of your elbow. Wash your hands often. Self-care at home There is currently no medicine approved to prevent or treat the virus. Some experimental and other medicines are being tested against COVID-19. Other medicines used to treat other conditions are being looked at for COVID-19, but they are not currently approved to treat it. Current treatment is mainly aimed at helping your body while it fights the virus. This is known as supportive care. Take care of yourself at home by: Getting rest. This helps your body fight the illness. Staying hydrated. Drinking liquids is the best way to prevent dehydration. Try to drink 6 to 8 glasses of liquids every day, or as advised by your provider. Also check with your provider about whichfluids are best for you. Don't drink fluids that contain caffeine or alcohol. Taking hiaj-mst-stifdvp (OTC) pain medicine. These are used to help ease pain and reduce fever. Follow your healthcare provider's instructions for which OTC medicine to use. If you've been in the hospital for suspected or confirmed COVID-19 and now are home, follow all of your healthcare team's instructions. This will include when it's OK to stop self-isolation. You may also get instructions on position changes to help your breathing, such as lying on your belly (prone positioning). If you've had confirmed COVID-19, your healthcare team may ask you to consider donating your plasma.This is called COVID-19 convalescent plasma donation. Plasma from people fully recovered from COVID-19 may contain antibodies to help fight COVID-19 in people who are currently seriously ill with the disease. Experts don't know the safety of COVID-19 convalescent plasma or how well it works. Research continues. The FDA has approved it for emergency use in certain people with serious or life-threatening COVID-19. Caring for a sick person Follow all instructions from healthcare staff. Wash your hands often. Wear protective clothing as advised. Make sure the sick person wears a mask. If they can't wear a mask, don't stay in the same room with the person. If you must be in the same room, wear a face mask. When wearing a mask, make sure thatit covers both the nose and mouth. Keep track of the sick persons symptoms. Clean home surfaces often with disinfectant. This includes phones, kitchen counters, fridge door handle, bathroom surfaces, and others. Dont let anyone share household items with the sick person. This includes eating and drinking tools, towels, sheets, or blankets. Clean fabrics and laundry thoroughly. Keep other people and pets away from the sick person. When you can stop self-isolation When you are sick with COVID-19, you should stay away from other people. This is called self-isolation. Your limits are different if you've had COVID-19 in the last 3 months but are fully recovered without symptoms and you have been exposed to someone with COVID-19. If you are symptom-free, you don't need to stay home away from others or be retested. The CDC doesn't recommend retesting unless you have symptoms of COVID-19 and your new symptoms can't be linked to another illness. Contact your healthcareprovider if you have any questions. If you develop symptoms, stay home. If you had COVID-19 over 3 months ago and have been exposed again, treat it like you've never had COVID-19 and stay home, limit your contact with others, call your provider, and monitor for symptoms. If you are normally healthy, the CDC does not advise retesting for COVID-19 with nose-throat swabs. You can stop self-isolation when all 3 of these are true: 1. You have had no fever for at least 24 hours. This means no fever without medicine that reduces fever, such as acetaminophen, for at least 24 hours. 2. Your symptoms such as cough or trouble breathing have improved. 3. It has been at least 10 days since your first symptoms started. Talk with your healthcare provider before you leave home. Tell them if the 3 things above are true for you. They may tell you its OK to leave home. In some cases, your state or local area may have specific advice. Your healthcare provider will tell you more. If you have a weak immune system and COVID-19, or if you've had severe COVID-19, your instructions on when to stop isolation will be somewhat different. Some conditions and treatments can cause a weak immune system. These include cancer treatment, bone marrow or organ transplants, and conditions such as HIV or other immune system disorders. You may be advised to stay home from 10 days to 20 days after your symptoms first started. Your healthcare provider may want to retest you for COVID-19. Follow your provider's instructions. When you return to public settings When you are well enough to go outside your home, consider the CDC's guidance on cloth face masks: The CDC advises all people over age 2 to wear cloth face masks in public settings when around people outside of their household, especially when it's hard to socially distance. For example, wear a face mask in populated places such as public transit, public protests and marches, and crowded stores,bars, and restaurants. Cloth masks may help prevent people who have COVID-19 form spreading the virus to others. Cloth masks are most likely to reduce COVID-19 spread when masks are widely used by people who are out in the public. Certain people should not wear a face covering. This includes: Children younger than 2 years old Anyone with a health, developmental, or mental health condition that can be made worse by wearinga mask Anyone who is unconscious or unable to remove the face covering without help. See the CDC's guidance on who should not wear a face mask. When to call your healthcare provider Call your healthcare provider right away if a sick person has any of these: If a sick person has any of these, call 911: Trouble breathing that gets worse Pain or pressure in chest that gets worse Blue tint to lips or face Fast or irregular heartbeat Confusion or trouble waking Fainting or loss of consciousness Coughing up blood Going home from the hospital If you were diagnosed with COVID-19 and were recently discharged from the hospital: Follow the instructions above for self-care and isolation. Follow the hospital healthcare teams specific instructions. Ask questions if anything is unclear to you. Write down answers so you remember them. Date last modified: 06/15/2020 Pradeep caballero reviewed this educational content on 01/20/202019995611-1211 [employer]. All rights reserved. This information is not intended as a substitute for professional medical care. Always follow your healthcare professional's instructions. Patient Education Coronavirus Disease 2019 (COVID-19): Overview Coronavirus disease 2019 (COVID-19) is a respiratory illness. It's caused by a new (novel) coronavirus. There are many types of coronavirus. Coronaviruses are a very common cause of colds and bronchitis. They may sometimes cause lung infection (pneumonia). Symptoms can range from mild to severe. Some people have no symptoms.These viruses are also found in some animals. All 50 states in the [place] have reported cases of COVID-19. Most states report "community spread" of COVID-19. This means the source of the illness is not known.COVID-19 is a rapidly-emerging infectious disease. This means that scientists are actively researching it.There are information updates reg [facility]. Public health officials are working to find the source. How the virus spreads is not yet fully understood, but it seems to spread and infect people fairly easily. Some people who have been infected in an area may not be sure how or where they were infected. The virus may be spread through droplets of fluid that a person coughs or sneezes into the air. It may be spread if you touch a surface with the virus on it, such as a handle or object, and then touch your eyes, nose, or mouth. For the latest information, visit the CDC website at www.cdc.gov/coronavirus/2019-ncov. Or call 612-YQZ-GPQE (939-449-5914). What are the symptoms of COVID-19? Some people have no symptoms or mild symptoms. Symptoms can also vary from person to person. As experts learn more about COVID-19, other symptoms are being reported. Symptoms may appear 2 to 14 days after contact with the virus: Fever or chills Coughing Trouble breathing or feeling short of breath Sore throat Stuffy or runny nose Headache and body aches Fatigue Nausea, vomiting, diarrhea, or abdominal pain New loss of sense of smell or taste You can check your symptoms with the [facility] Coronavirus [employer]. What are possible complications from COVID-19? In many cases, this virus can cause infection (pneumonia) in both lungs. In some cases, this can cause . Certain people are at higher risk for complications. This includes older adults and people with serious chronic health conditions such as heart or lung disease, diabetes, or kidney disease. It includes people with health conditions that suppress the immune system. And it includes people taking medicines that suppress the immune system. As experts learn more about COVID-19, other complications are being reported that may be linked to COVID-19. Rarely, some children have developed severe complications called multisystem inflammatory syndrome in children (MIS-C). MIS- C seems to be similar to [place] disease, a rare condition causing inflammation of blood vessels and body organs. It's not yet known if MIS-C happens only in children, orif adults are also at risk. It's also not known if it's related to COVID-19, because many children, but not all, have tested positive for the virus. Experts continue to study MIS-C. The CDC advises healthcare providers to report to local health departments any person under age 2121 years old who is ill enough to be in the hospital and has all of the following: A fever over 100.4F (38.0C) for more than 24 hours and a positive SARS-CoV-2 test or exposureto the virus in the last 4 weeks Inflammation in at least 2 organs such as the heart, lungs, or kidneys with lab tests that show inflammation No other diagnoses besides COVID-19 explain the child's symptoms How is COVID-19 diagnosed? Your healthcare provider will ask about your symptoms. He or she will ask where you live, and about your recent travel, and any contact with sick people. If your healthcare provider thinks you may haveCOVID-19, he or she will consider whether to test you for COVID-19. This depends on the availabilityof testing in your area, and how sick you are. Follow all instructions from your healthcare provider. Guidelines for testing may change as more information about the virus becomes available. Currently,COVID-19 is diagnosed by: Viral test. Viral tests tell if you have a current COVID-19 infection. A nose-throat swab may bewiped inside your nose to the back of your throat. Or a sample of your saliva may be taken. Either of these samples will be checked for the SARS-CoV-2 virus. Availability of tests vary. Some test kits can be done at home, but must be sent to a lab to be checked. Viral tests called sdwwh-rx-zcvb tests (POCTs) may be done at some testing sites. The results are available within about an hour. Other types of viral tests must be sent to a lab, and it may be several days before the results are back. If your healthcare provider thinks or confirms that you have COVID-19, you may have other tests. These tests may include: Antibody blood test. Antibody tests are being looked at to find out if a person has previously been infected with the virus and may now have antibodies such as SARS AB IgG in their blood to give some immunity. The accuracy and availability of antibody tests vary. An antibody test may not be able to show if you have a current infection because it can take up to a few weeks after infection to make antibodies. It's not yet known how long immunity lasts after being infected with the virus. Sputum culture. A small sample of mucus coughed from your lungs (sputum) may be collected if youhave a moist cough. It may be checked for the virus or to look for pneumonia. Imaging tests. You may have a chest X-ray or CT scan. Note about reinfection and your immunity At this time, it's unclear if people can be reinfected with COVID-19. The CDC notes that if a personhas fully recovered from COVID-19 and is retested within 3 months of the first infection, they may continue to have low levels of the virus in their body and test positive for COVID-19, even though they are not spreading COVID-19. Having a positive COVID-19 test after an infection doesn't mean you can't be reinfected. It's not yet known how long immunity lasts after being infected with the virus. How is COVID-19 treated? There is currently no medicine proven to prevent or treat the virus. Some experimental medicines arebeing tested for COVID-19. Other medicines used to treat other conditions are being looked at for COVID-19, but these are not currently approved to treat it. The most proven treatments right now are those to help your body while it fights the virus. This is known as supportive care. Supportive care may include: Getting rest. This helps your body fight the illness. Staying hydrated. Drinking liquids is the best way to prevent dehydration. Try to drink 6 to 8 glasses of liquids every day, or as advised by your provider. Also check with your provider about which fluids are best for you. Don't drink fluids that contain caffeine or alcohol. Taking zecp-vop-bamqtjg (OTC)pain medicine. These are used to help ease pain and reduce fever.Follow your healthcare provider's instructions for which OTC medicine to use. For severe illness, you may need to stay in the hospital. Care during severe illness may include: IV (intravenous) fluids. These are given through a vein to help keep your body hydrated. Oxygen. You may be given supplemental oxygen or ventilation with a breathing machine (ventilator). This is done so you get enough oxygen in your body. Prone positioning. Depending on how sick you are during your hospital stay, your healthcare teammay turn you regularly on your stomach. This is called prone positioning. It helps increase the amount of oxygen you get to your lungs. Follow your healthcare team's instructions on position changes while you're in the hospital. Also follow their discharge advice on the best positions to help your breathing once you go home. People who have had COVID-19 and are fully recovered may be asked by their healthcare team to consider donating plasma. This is called COVID-19 convalescent plasma donation. Plasma from people fully recovered from COVID-19 may contain antibodies to help fight COVID-19 in people who are currently seriou sly ill with the disease. Experts don't know if the donated plasma will work well as a treatment. Research continues, and the FDA has approved it for emergency use in certain people with serious or life-threatening COVID-19. Talk with your provider to learn more about convalescent plasma donation and whether you qualify to donate. Are you at risk for COVID-19? You are at risk for COVID-19 if you have had close contact with someone with the virus, or if you live in or traveled to an area with cases of it. Close contact means being within about 6 feet of someone, or living in the same house or visiting a person who has or may have COVID-19. Some recent studies suggest that COVID-19 may be spread by people who are not showing symptoms. Date last modified: 07/12/2020 [employer] last reviewed this educational content on 10/21/201919998185-4428 [employer]. All rights reserved. This information is not intended as a substitute for professional medical care. Always follow your healthcare professional's instructions. [facility] documented in this encounter Progress Notes Virginia Christian FNP - 10/26/2020 7:00 PM CST Cc: Chief Complaint Patient presents with Cough Dry cough 2xdays Headache today Shwetha Chirinos is a 75 year old female. Patient here for the following condition: cough, headache Location: chest Duration: 6 days Severity: no pain now Context: Patient was tested at [facility] on Saturday for COVID. She got results back today and is positive. She was not retested in clinic today. Patient has COPD and she states her normal Oxygen levels are around 93% which they are today. She denies needing to use her prednisone and denies worsening of symptoms. She had nausea after using her nebulizer machine last night. She states her daughter was recently hospitalized with COVID. She is here today to find out how she can treat the virus. She states her biggest complaint is loss of appetite and nausea. I discussed how to care for herself at home and then ER warnings for when to go to ER for treatment. We will send medications to help with nausea. And Iencouraged her to stay hydrated and eat small frequent meals. She states she has prednisone she willuse for COPD exacerbation, and I suggest she take for any worsening of her COPD symptoms. She is already taking Zinc as well. Patient was brought by self. Patient is speaking complete sentences and normal tone. Denies chest pain, shortness of breath, dizziness, weakness or palpitations. Allergies Shwehta is allergic to codeine and macrobid [nitrofurantoin monohyd/m-cryst]. Medications Outpatient Medications Prior to Visit Medication Sig Dispense Refill ipratropium 0.02 % nebulizer solution Inhale 2.5 mL 2 (two) times daily as needed for Wheezing or Shortness of Breath. 180 Vial 3 ergocalciferol, vitamin d2, (VITAMIN D2) 1,250 mcg (50,000 unit) capsule Take 1 capsule by mouthweekly. 12 capsule 3 tiotropium 18 mcg inhalation Inhale 18 mcg daily. predniSONE 10 mg tablet Take 10 mg by mouth as needed (wheezing). omeprazole 40 mg capsule Take 40 mg by mouth daily. No facility-administered medications prior to visit. Histories Past Medical History: Diagnosis Date Arthritis mainly in hands/fingers COPD (chronic obstructive pulmonary disease) Crohn disease GERD (gastroesophageal reflux disease) History of cataract bilaterally, removed. Peptic ulcer disease positive for H. pylori, had treatment 11/2019 Past Surgical History: Procedure Laterality Date CHOLECYSTECTOMY 2011 COLONOSCOPY 05/2019 ECHO ROUTINE W/DOPPLER COLOR 12/2018 ESOPHAGOGASTRODUODENOSCOPY N/A 02/10/2020 Surgeon: Andria Salazar MD; Location: [facility] OR [facility] ESOPHAGOGASTRODUODENOSCOPY N/A 05/19/2020 Surgeon: Andria Salazar MD; Location: [facility] OR [facility] HERNIA REPAIR Bilateral inguinal hernias HYSTERECTOMY 1975 OTHER trapezium implant, right hand, due to arthritis PHACOEMULSIFICATION OF CATARACT WITH INTRAOCULAR LENS IMPLANT Bilateral PHARMACOLOGICAL STRESS TEST 12/2018 nuclear stress test TONSILLECTOMY 1965 Social History Socioeconomic History Marital status: Spouse name: Not on file Number of children: Not on file Years of education: Not on file Highest education level: Not on file Occupational History 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, 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 Social Needs Financial resource strain: Not on file Food insecurity Worry: Not on file Inability: Not on file Transportation needs Medical: Not on file Non-medical: Not on file Tobacco Use Smoking status: Former Smoker Types: Cigarettes Quit date: 06/02/2003 Years since quittin.4 Smokeless tobacco: Never Used Substance and Sexual Activity Alcohol use: Yes Comment: seldom Drug use: Not Currently Sexual activity: Not on file Lifestyle Physical activity Days per week: Not on file Minutes per session: Not on file Stress: Not on file Relationships Social connections Talks on phone: Not on file Gets together: Not on file Attends [employer] service: Not on file Active member of club or organization: Not on file Attends meetings of clubs or organizations: Not on file Relationship status: Not on file Intimate partner violence Fear of current or ex partner: Not on file Emotionally abused: Not on file Physically abused: Not on file Forced sexual activity: Not on file Other Topics Concern Not on file Social History Narrative Lives at home alone, had 2 dogs. 05/23/2020 Family History Problem Relation Age of Onset [place] (myocardial infarction) Father COPD (chronic obstructive pulmonary disease) Father Diabetes Daughter Diabetes Daughter Review of Systems Constitutional: Positive for appetite change. Negative for activity change, chills, diaphoresis, fatigue and fever. HENT: Negative for congestion, sinus pressure and sore throat. Eyes: Negative for photophobia, pain and redness. Respiratory: Positive for cough. Negative for chest tightness, shortness of breath and wheezing. Cardiovascular: Negative for chest pain, palpitations and leg swelling. Gastrointestinal: Positive for nausea. Negative for abdominal pain, constipation and vomiting. Genitourinary: Negative for dysuria, urgency, polyuria, frequency, flank pain, vaginal pain and pelvic pain. Musculoskeletal: Negative for arthralgias, back pain, gait problem, joint swelling, myalgias, neck pain and neck stiffness. Skin: Negative for color change, pallor and rash. Neurological: Negative for dizziness, speech difficulty, weakness, light- headedness, numbness and headaches. Psychiatric/Behavioral: Negative for confusion and sleep disturbance. The patient is not nervous/anxious. All other systems reviewed and are negative. Hematological: Negative for adenopathy. Does not bruise/bleed easily. Endocrine: Negative for hair loss, polydipsia, polyphagia and polyuria. Vital Signs BP 132/83 | Pulse 119 | Temp 36.6 C (97.9 F) (Oral) | Resp 18 | Ht 5' 5" (1.651 m) | Wt 133lb (60.3 kg) | SpO2 93% | BMI 22.13 kg/m HR rechecked at 105 Physical Exam Vitals signs and nursing note reviewed. Constitutional: General: She is not in acute distress. Appearance: She is well-developed. She is not diaphoretic. HENT: Head: Normocephalic and atraumatic. Right Ear: External ear normal. Left Ear: External ear normal. Nose: Nose normal. Eyes: Conjunctiva/sclera: Conjunctivae normal. Pupils: Pupils are equal, round, and reactive to light. Neck: Musculoskeletal: Normal range of motion and neck supple. Trachea: No tracheal deviation. Cardiovascular: Rate and Rhythm: Normal rate and regular rhythm. Heart sounds: Normal heart sounds. No murmur. Pulmonary: Effort: Pulmonary effort is normal. No respiratory distress. Breath sounds: Normal breath sounds. No wheezing or rales. Abdominal: General: Bowel sounds are normal. There is no distension. Palpations: Abdomen is soft. There is no mass. Tenderness: There is no abdominal tenderness. There is no guarding or rebound. Musculoskeletal: Normal range of motion. General: No tenderness or deformity. Lymphadenopathy: Cervical: No cervical adenopathy. Skin: General: Skin is warm and dry. Capillary Refill: Capillary refill takes less than 2 seconds. Findings: No rash. Neurological: Mental Status: She is alert and oriented to person, place, and time. Cranial Nerves: No cranial nerve deficit. Sensory: No sensory deficit. Motor: No abnormal muscle tone. Coordination: Coordination normal. Psychiatric: Behavior: Behavior normal. Thought Content: Thought content normal. Judgment: Judgment normal. Assessment/Plan Exposure to SARS-associated coronavirus (primary encounter diagnosis) Comment: Positive from [facility] testing Plan: COVID-19 (MOLECULAR TESTING NUCLEIC ACID AMPLIFICATION), COVID-19 (MOLECULAR TESTING NUCLEIC ACID AMPLIFICATION) Your COVID 19 testing results were positive. At this time, the COVID 19 virus was detected in your sample. If this is the first time you tested positive for COVID 19, we recommend that you remainin self- quarantine along with those in your immediate household until you have been contacted by your [facility] health department who will work with you on when you may discontinue self- quarantine. Inaddition, your company's employee health department may have additional requirements for clearance to work. Please work with your [facility] health department to address those requirements. Please follow the advice you received in your After Visit Summary (AVS), the CDC document on what todo if you are sick with COVID and/or the CDC document on the COVID 19 test you received. Please stayinside and preferably in one room. Avoid close contact with your family and neighbors to prevent further spread. Wear a face mask if in the presence of someone else. Do not share household items such as dishes and toiletries. Be sure to clean your space thoroughly and wash your hands frequently. If you have symptoms, most people feel better within 7-14 days. If your symptoms are worsening and you feel very short of breath and you have difficulty performing basic tasks such as walking to the bathroomor preparing food, we would like you to contact the [facility] at [phone] or toll free to talk with a nurse or, if your symptoms are urgent, go to the nearest Emergency Room. Please wear a face mask and call prior to going to a healthcare facility. The local health department will be contacting you soon to follow up. If you are a [facility] or contract employee or student, please refer to this website for more information [email or web address]. If this is not the first positive result you received, please be advised that it is unclear, at thistime, how long the virus remains detectable in samples. It appears it could be weeks before a samplebecomes negative. The date of your first positive test and your current symptoms will determine whenyou may discontinue quarantine. Please work with the [facility] for instructions. For further guidance on when you can expect to discontinue quarantine and return to work, please visit the CDC website: https://www.cdc.gov/coronavirus/2019-ncov/hcp/ktqqsjmdoki-ch-fhie-patients.html. [facility] recommends the symptom-based strategy for those who have symptoms and the time-based strategy for those who do not have symptoms. Repeat testing is not routinely recommended for any reason due to the prolonged detection of the virus in samples without evidence of transmission. General guidance includes release from quarantine when the following conditions are met: ? At least 24 hours have passed since recovery defined as resolution of fever without the use of fever-reducing medications and ? Improvement in symptoms (e.g., cough, shortness of breath); and, ? At least 10 days have passed since symptoms first appeared or the first positive test if symptoms have not developed or worsened since testing, at which point, use date symptoms began. ? Continue to wear a face mask until 14 days have passed since your first test or first symptoms appeared. ? If you experience a worsening of symptoms or recover and then redevelop symptoms, please speak with a provider for further evaluation. Those in your household should remain in quarantine for 14 days to allow time for incubation, or, iftesting positive, should follow the above guidelines for discontinuing quarantine. Nausea Plan: ondansetron (ZOFRAN ODT) 4 mg disintegrating tablet Plenty of fluids, Stay Hydrated ER for chest pain, abdominal pain, fever, blood in stool, persistent vomiting, weakness, dizziness, worsening or any concerns [place] Diet. Avoid Spicy or High acid foods BRAT- Bananas, Rice, Apples, [place] Take medications as prescribed. Discussed risk vs benefit Follow up 2-3 days for no improvement or sooner for worsening ER warnings given to patient Please Follow up with your PCP within 3-5 days or sooner for any concerns You must understand this is the Urgent Care Setting and testing is limited. Complete work up to ruleout life threatening causes of your symptoms should be done in the Emergency Room Please go to ER for immediate evaluation should your symptoms worsen or you develop new symptoms For medication refills and health maintenance for chronic medical conditions you must follow up withyour PCP Please follow up with Specialists as discussed for symptoms requiring higher level of care and further evaluation or follow up For Pediatric Patients it is recommended to follow up with your Lead Customer Service Representative in 1-2 days and to monitor for worsening symptoms very closely Plan of care, desired health behaviors, goals and medications discussed with patient and educationalresources and self-management tools provided. Patient/family/guardian voices understanding. Barriers to care: none Ability to manage care: good As necessary, prescribed medications and potential significant medication side effects or medicationinteractions were discussed with the patient and pt will let me know if any occur. Call or return to clinic prn if these symptoms worsen or fail to improve as anticipated. Call or report to ER if symptoms should symptoms progress or worsen. The patient indicates understanding of these issues and agrees with the plan. AVS printed and given to patient/family/guardian Virginia Christian RN, BSN, REGIONAL ADMINISTRATIVE ASSISTANT [facility] [address] [facility] Office: [phone] Acosta Patrick MA - 10/26/2020 7:00 PM CST Shwetha Chirinos is a 75 year old female complains of Chief Complaint Patient presents with Cough Dry cough 2xdays Patient wanted to speak to a provider before getting tested for Lance.Her last test was last Saturdayand her result were received today as positive. Tylenol was taking this morning for her headaches. Chest only hurts when breathing in sometimes. BP 132/83 | Pulse 119 | Temp 36.6 C (97.9 F) (Oral) | Resp 18 | Ht 5' 5" (1.651 m) | Wt 133lb (60.3 kg) | SpO2 91% | BMI 22.13 kg/m Acosta Blanco MA 10/26/2020 7:21 PM documented in this encounter Plan of Treatment Date Type Specialty Care Team Description 12/06/2020 Seater Grinder Visit Phlebotomy 2, [facility] Lab 01/06/2021 Office Visit Internal Medicine Marzena Vital MD [address] [place] [address] 15 [phone] 01/06/2021 Office Visit Internal Medicine Marzena Vital MD [address] [place] [address] 15 [phone] Name Type Priority Associated Diagnoses Order S cheanitha COVID-19 (MOLECULAR LAB Routine Exposure to Expected : 10/26/2020, TESTING SARS-associated Expires: 022 NUCLEIC ACID coronavirus AMPLIFICATION) Health Maintenance Due Date Last Done Comments [...] filedocumented in this encounter Visit Diagnoses Diagnosis COVID-19 virus infection - Primary Exposure to SARS-associated coronavirus Nausea Nausea alone documented in this encounter Additional Health Concerns Infection Onset Date Last Indicated Resolved Time COVID-19 Rule Out 10/26/2020 10/26/2020 documented as of this encounter Insurance Payer Benefit Plan / Subscriber ID Effective Phone Address T ype Group Dates MEDICARE MEDICARE PART [id number] 2012-Pre [phone] [address] [employer] sent [phone] [place] [phone] [facility] [id number] 2019-Pre [address] [facility] sent [id number] Supplement MEDICARE [place] SUPPLEMENT ABDOULAYE [place]WIN [id number] documented as of this encounter
--- OUTSIDE RECORDS SUMMARY | 2020-10-28 13:07 | XMS REPORT | Summary of Care ---
:1945 Author Organization [facility] Address [address] [place] [address] Care Team Providers Name Role Phone Tejal Vital MD Primary Care Provider Brittany Nuñez Unavailable Doris Employment Representative Mary Ann Salazar MD Unavailable Reason for Referral Radiology Services (Routine) Status Reason Specialty Diagnoses / Referred By Referred To Procedures Contact Contact New Request Diagnostic Diagnoses Encounter for screening mammogram for breast cancer Zahraa, Radiology Procedures BI SCREENING MAMMOGRAM BILATERAL Tejal Carvalho MD [address] [place] [address] [facility] [address] [place] [address] Reason for Visit Reason Comments Follow-up Encounter Details Date Type Department Care Team Description 08/26/2020 Office Visit [facility] Pediatric Clement Vital c obstructive pulmonary disease, unspecified COPD type (Primary Dx); and Adult Primary Ray Fernandes Sharp pain; Care- [address] Hinojosa pain; [address] [place] [address] [address] insomnia; [address], [address] [place] [address] Lung crackles; [place], [place] [phone] Vitamin D deficiency; [phone] Encounter for screening mamm ogram for breast cancer; [phone] Need for vaccin ation; Routine adult h ealth maintenance Allergies Active Allergy Reactions Severity Noted Date Comments Codeine Other - See comments 02/10/2020 Makes h er feel spacey/goofy Nitrofurantoin Other - See comments 05/17/2020 Sever e leg/hip pain Monohyd/M-Cryst documented as of this encounter (statuses as of 09/04/2020) Medications Medication Sig Dispensed Refills Start Date [...] D deficiency ipratropium 0.02 Inhale 2.5 mL 0 02/29/2020 08/26/20 2 Discontinued % nebulizer 2 (two) times 0 (Reo rder) solution daily as needed. ipratropium 0.02 Inhale 2.5 mL 180 Vial 3 08/26/2020 08/31/20 2 Discontinued % nebulizer 2 (two) times 0 (Reo rder) solutionIndicati daily as ons: Chronic needed for obstructive Wheezing or pulmonary Shortness of disease, Breath. 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 documented as of this encounter Last Filed Vital Signs Vital Sign Reading Time Taken Comments Blood Pressure 130/83 08/26/2020 10:20 AM 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 ASSEMBLER Pulse 83 08/26/2020 10:20 AM 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 ASSEMBLER Temperature 36.4 C (97.5 F) 08/26/2020 10:20 AM 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 ASSEMBLER Respiratory Rate 18 08/26/2020 10:20 AM 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 ASSEMBLER Oxygen Saturation 98% 08/26/2020 10:20 AM 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 ASSEMBLER Inhaled Oxygen Concentration - - Weight 60.1 kg (132 lb 9.6 oz) 08/26/2020 10:20 AM 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 ASSEMBLER Height - - Body Mass Index 22.07 05/23/2020 9:54 AM CDT documented in this encounter Patient Instructions Patient InstructionsOdette Travis - 08/26/2020 10:00 AM CSTYou can read "Plant Paradox" by Dr. Jeong. He has a lot of good information on diet and talks aboutlectins. You can also go online to https://www.Hab [employer]/ for more information and recipes. Look up foods high in omega 3 (this includes fish oils and fish such as salmon, mackerel, anchovies,sardines, and montoya). [place] 3 can help fight inflammation and omega 6 cause inflammation. Work on increasing omega 3 and decreasing omega 6 in diet. Try to AVOID anything containing peanut oil, sunflower oil and safflower oil. They are high in omega 6. Canola oil seems to be better. 5 Moves for a Stronger Back & Better Posture by Briana White May 07, 2016 Sitting at a desk all day, slouched in front of a computer, can wreak havoc on your bodyespecially your back and hips. Its extremely common for that sitting habit of yours to cause you to suffer from lower back pain, neck problems, tight hips flexors, and poor posture. Taking a few minutes throughout the day to stretch and strengthen your back and hips can alleviate some of those issues, help you feel better, and improve your productivity at the office! Here are 5 moves to practice before work, after work, or even at your desk! 1. Swimming Start by lying prone (on your stomach) with your arms and legs outstretched, legs hips width distance apart, and arms shoulder width apart. Lift your left arm and your right leg up, extending your spine and keeping your gaze down at the floor; then switch to the opposite arm and leg. Once you can maintain control, begin to increase your pace and continue to lift up, using your upper back muscles, back line of your arms, hamstrings, glutes, and calf muscles. Repeat 5 to 10 times on each side. 2. Opposite Arm and Leg Reach Begin on the floor on all fours with your hands directly under your shoulders and knees underneath your hips, making sure your elbows are not hyperextended. Hold strong through your core as you stretch your right arm forward and your left leg straight back. Keep your hipssquare by turning the leg that is lifted slightly inward. Think about maintaining a straight line from the fingertips to the toes. Switch sides slowly and with control, maintain a strong core throughout the exercise. Repeat 5 to 10 times on each side. 3. Plank Holding a simple plank on your hands or forearms is a great core strengthening and back stabilizing exercise. Place your hands or elbows directly underneath your shoulders and extend your legsdirectly behind you. As you breath continue to engage your core to support your spine. Hold for 30 seconds to 1 minute. 4. Seated Chair Extensions Sit in a chair with a back with your body towards the back edge of your chair, place your feet flat on the floor, and your hands behind your head. Take a big inhale, then on your exhale begin to extend your spine over the back of the chair. Take a breath in your extension and then return to an upright position. Repeat 5 to 10 times. 5. Seated Hip (Piriformis) Stretch Sit towards the edge of your chair with both feet flat on the floor. 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 Gently place your right hand on your right thigh and begin to hinge forward, allowing your right hip to open. Continue hingingat your hips to increase the stretch, being sure to maintain equal weight on both sides of your pelvis. Hold for 30 seconds to 1 minute. Switch legs, and repeat on the other side. 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 who is being seen today for follow up of chronic conditions. Patient reports occasional sharp pain that starts in the back of her head on the right side and shoots up the head. Pain comes sudden and only last a few min then goes away. She has not had this pain in a while, at least a few weeks. Still has issues with sleep. She does not exercise. She has COPD. Shortness of breath is at baseline. She follows with Dr. Nuñez. She is not sure if she has had any of the pneumonia vaccines. Health Maintenance Patient is due for medicare wellness, will get this scheduled. Patient states her last colonoscopy was a year ago, per patient results were normal. Medications reviewed in EPIC, past medical history and social history and allergies reviewed. Review of Systems Musculoskeletal: + right sided head pain Psychiatric/Behavioral: Positive for sleep disturbance. PE: Blood pressure 130/83, pulse 83, temperature 36.4 C (97.5 F), temperature source Oral, resp. rate 18, weight 132 lb 9.6 oz (60.1 kg), SpO2 98 %. Physical Exam Vitals signs reviewed. Constitutional: Appearance: Normal appearance. She is well-developed. HENT: Head: Normocephalic and atraumatic. No masses. Nose: Nose normal. Eyes: General: Lids are normal. No scleral icterus. Right eye: No discharge. Left eye: No discharge. Comments: Eyelids normal. Neck: Musculoskeletal: Muscular tenderness present. Cardiovascular: Rate and Rhythm: Normal rate and regular rhythm. Heart sounds: Normal heart sounds. No murmur. No friction rub. No gallop. Pulmonary: Effort: Pulmonary effort is normal. No respiratory distress. Breath sounds: Normal breath sounds. No wheezing or rales. Comments: Crackles heard, does not seem to be as loud as it was last visit. Abdominal: Comments: GI system: Soft. No distension, bowel sounds are normal. There is no tenderness. Skin: General: Skin is warm and dry. Findings: No rash. Neurological: Mental Status: She is alert and oriented to person, place, and time. Psychiatric: Speech: Speech normal. Behavior: Behavior normal. Results: No new labs A/P: Shwetha Chirinos is a 75 year old female with history including has a past medical history of Arthritis, COPD (chronic obstructive pulmonary disease), Crohn disease, GERD (gastroesophageal reflux disease), History of cataract, and Peptic ulcer disease. who is being seen today for chronic medical conditions. Chronic obstructive pulmonary disease, unspecified COPD type (primary encounter diagnosis) Comment: stable. Needs refill. Shortness of breath is at baseline. Plan: ipratropium 0.02 % nebulizer solution Sharp pain Shooting pain Comment: patient reports occasional sharp and shooting pain on the right side of her head. likely related to the tight muscles she is having in the back of her neck, could be relayed to poor posture, massage therapy helps. Plan: patient provided with back exercises on after visit summary. Other insomnia Comment: still having issues. Exercising during the day can help and working on diet. Plan: patient will work on diet and exercise. Lung crackles Comment: on exam, heard faint crackles. Does not seem to be as loud as it was last visit. Plan: patient will follow with Dr. Nuñez Vitamin D deficiency Comment: patient has vitamin D deficiency, will check labs. Plan: VITAMIN D, 25-OH Encounter for screening mammogram for breast cancer Comment: patient is due for mammogram. Plan: BI SCREENING MAMMOGRAM BILATERAL Need for vaccination Comment: patient is due for pneumonia vaccine. Plan: PNEUMOCOCCAL VACCINE, 23-VALENT (PNEUMOVAX) Routine adult health maintenance Comment: patient is due for routine labs. Plan: HCV ANTIBODY Return in about 4 months (around 12/24/2020) for Chronic medical conditions, Medicare wellness exam. Plan of care, desired health behaviors, goals,& medication discussed with patient and educational resources and self management tools provided as appropriate. Patient/family/guardian voices understanding. Patient verbalized understanding & agrees to plan of care. Barriers to care: none Ability to manage care: good Scribe's Attestation Odette Hoffman , am scribing for, and in the presence of, Tejal Vital MD who performed the services described here-in. Odette Travis, August 26, 2020, 11:23 AM Physician's Attestation I, Tejal Vital MD, personally performed the services described in this documentation , asscribed by, Odette Travis in my presence and it is both accurate and complete. Tejal Vital MD September 04, 2020, 3:49 PM PONG TABLE ASSEMBLER documented in this encounter Plan of Treatment Date Type Specialty Care Team Description 12/06/2020 Leather Sorter Visit Phlebotomy 2, Adc Lab 01/06/2021 Office Visit Internal Medicine Marzena Vital MD [address] [place] [address] 77 15 01/06/2021 Office Visit Internal Medicine Marzena Vital MD [address] [place] [address] 775 15 Name Type Priority Associated Diagnoses Order S chedule BI SCREENING MAMMOGRAM IMAGING Routine Encounter for scre ening Expected: 08/26/2020, BILATERAL mammogram for breast Expires : 10/26/2021 cancer HCV ANTIBODY LAB Routine Routine adult health Expecte d: 11/26/2020 maintenance (Approximate), Expires: 2020 VITAMIN D, 25-OH LAB Routine Vitamin D deficiency Exp ected: 11/26/2020 (Approximate), Expires: 2020 Health Maintenance Due Date Last Done Comments [...] Completed 08/26/2020 documented as of this encounter Procedures Procedure Name Priority Date/Time Associated Diagnosis Comme nts PNEUMOCOCCAL VACCINE, Routine 08/26/2020 11:33 AM Need for vac cination 23-VALENT (PNEUMOVAX) 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 documented in this encounter Results Not on filedocumented in this encounter Visit Diagnoses Diagnosis Chronic obstructive pulmonary disease, u nspecified COPD type - Primary Sharp pain Shooting pain Other insomnia Lung crackles Abnormal chest sounds Vitamin D deficiency Unspecified vitamin D deficiency Encounter for screening mammogram for br east cancer Need for vaccination Need for prophylactic vaccination and in oculation against unspecified single disease Routine adult health maintenance Routine general medical examination at a health care facility documented in this encounter Insurance Payer Benefit Plan / Subscriber ID Effective Phone Address T ype Group Dates MEDICARE MEDICARE PART [id number] 2012-Pre [phone] [address] edicare A & B sent [id number] ABDOULAYE [place] [phone] [facility] [id number] 2019-Pre [address] [facility] sent [id number] Supplement MEDICARE [place] SUPPLEMENT ABDOULAYE IRWIN [id number] documented as of this encounter
--- OUTSIDE RECORDS SUMMARY | 2020-10-28 13:07 | XMS REPORT | Summary of Care ---
:1945 Author Organization [facility] Address [address] [place] [address] Care Team Providers Name Role Phone Tejal Vital MD Primary Care Provider [phone] Brittany Nuñez Unavailable Doris Senior Teller Mary Ann Salazar MD Unavailable Reason for Visit Reason Comments Orders WRITTEN ORDER FORM Encounter Details Date Type Department Care Team Description 09/20/2020 Telephone [facility] Pediatric Ana Vital Orders (WRITTEN ORDER and Adult Primary AMD FORM) Care- [address], [address] [place], [place] [address] [place] [address] [phone] [address] [phone] Allergies Active Allergy Reactions Severity Noted Date Comments Codeine Other - See comments 02/10/2020 Makes h er feel spacey/goofy Nitrofurantoin Other - See comments 05/17/2020 Sever e leg/hip pain Monohyd/M-Cryst documented as of this encounter (statuses as of 09/20/2020) Medications Medication Sig Dispensed Refills Start Date [...] disease, Shortness of unspecified COPD type Breath. 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 documented as of this encounter Last Filed Vital Signs Not on filedocumented in this encounter Miscellaneous Notes Telephone Encounter - Virginia Mas - 09/20/2020 2:49 PM CSTReceived [facility]. Placed form in Dr. Vital's box OR PRODUCT DESIGNER documented in this encounter Plan of Treatment Date Type Specialty Care Team Description 12/06/2020 Broom Man Visit Phlebotomy 2, Adc Lab 01/06/2021 Office Visit Internal Medicine Marzena Vital MD [address] 77 [phone] 01/06/2021 Office Visit Internal Medicine Marzena Vital MD [address] 777 [phone] Health Maintenance Due Date Last Done Comments [...] T ype Group Dates MEDICARE MEDICARE PART [id number] 2012-Pre [phone] [address] edicare A & B sent [id number] ABDOULAYE [place] [phone] [facility] [id number] 2019-Pre [address] [facility] sent [id number] Supplement MEDICARE [place] SUPPLEMENT ABDOULAYE IRWIN [id number] documented as of this encounter
--- OUTSIDE RECORDS SUMMARY | 2020-10-28 13:07 | XMS REPORT | Summary of Care ---
:1945 Author Organization [facility] Address [address] [place] [address] Care Team Providers Name Role Phone Tejal Vital MD Primary Care Provider Brittany Nuñez Unavailable Doris Community Planning Technician Mary Ann Salazar MD Unavailable Reason for Referral Radiology Services (Routine) Status Reason Specialty Diagnoses / Referred By Referred To Procedures Contact Contact New Request Diagnostic Diagnoses Encounter for screening mammogram for breast cancer Zahraa, Radiology Procedures BI SCREENING MAMMOGRAM BILATERAL Tejal Carvalho MD [address] [place] [address] [facility] [address] [place] [address] Reason for Visit Reason Comments Follow-up Encounter Details Date Type Department Care Team Description 08/26/2020 Office Visit [facility] Pediatric Clement Vital c obstructive pulmonary disease, unspecified COPD type (Primary Dx); and Adult Primary Ray Fernandes Sharp pain; Care- [address] Hinojosa pain; [address] [place] [address] [address] insomnia; [address], [address] [place] [address] Lung crackles; [place], [place] [phone] Vitamin D deficiency; [id number] Encounter for screening mamm ogram for breast cancer; [phone] Need for vaccin ation; Routine adult h [...] with No / Unsure 08/26/2020 9:59 AM 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 documented as of this encounter Last Filed Vital Signs Vital Sign Reading Time Taken Comments Blood Pressure 130/83 08/26/2020 10:20 AM GREENHOUSE WORKER Pulse 83 08/26/2020 10:20 AM GREENHOUSE WORKER Temperature 36.4 C (97.5 F) 08/26/2020 10:20 AM GREENHOUSE WORKER Respiratory Rate 18 08/26/2020 10:20 AM GREENHOUSE WORKER Oxygen Saturation 98% 08/26/2020 10:20 AM GREENHOUSE WORKER Inhaled Oxygen Concentration - - Weight 60.1 kg (132 lb 9.6 oz) 08/26/2020 10:20 AM GREENHOUSE WORKER Height - - Body Mass Index 22.07 05/23/2020 9:54 AM CDT documented in this encounter Patient Instructions Patient InstructionsOdette Travis - 08/26/2020 10:00 AM CSTYou can read "Plant Paradox" by Dr. Jeong. He has a lot of good information on diet and talks aboutlectins. You can also go online to https://www.Appsindep.[employer]/ for more information and recipes. Look up foods high in omega 3 (this includes fish oils and fish such as salmon, mackerel, anchovies,sardines, and montoya). [place] 3 can help fight inflammation and omega [...] both feet flat on the floor. 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 https://blog.exozet.[employer]/9-ujpdy-rau-s-xhdqfcvt-ptul-better-posture/ NHOUSE WORKER documented in this encounter Progress Notes Tejal [...] Vital MD September 04, 2020, 3:49 PM NHOUSE WORKER documented in this encounter Plan of Treatment Date Type Specialty Care Team Description 12/06/2020 Distribution Analyst Visit Phlebotomy 2, Adc Lab 01/06/2021 Office Visit Internal Medicine Marzena Vital MD [address] [place] [address] 77 15 01/06/2021 Office Visit Internal Medicine Marzena Vital MD [address] [place] [address] 775 15 Name Type Priority Associated Diagnoses [...] AM Need for vac cination 23-VALENT (PNEUMOVAX) GREENHOUSE WORKER documented in this encounter Results Not on [...] T ype Group Dates MEDICARE MEDICARE PART [id number] 2012-Pre [phone] [address] edicare A & B sent [id number] ABDOULAY[place] [phone] [facility] [id number] 2019-Pre [address] [facility] sent [phone] Supplement MEDICARE [place] SUPPLEMENT ABDOULAYE IRWIN [id number] documented as of this encounter
[2020-10-28] MEDS ORDERED: ONDANSETRON 4 MG/2 ML VIAL ONE (14:57)
[2020-10-28] MEDS ORDERED: KETOROLAC 30 MG/ML INJ ONE (14:58)
[2020-10-28] MEDS ORDERED: NA CHLORIDE 0.9% 500 ML ONE (14:58)
[2020-10-28 15:01] LABS: Absolute Lymphocytes (CBC) 0.8 K/uL (0.7-4.9); Basophils % 0.2 % (0-1.3); Hematocrit 39.6 % (36.0-45.0); MPV 9.9 fL (7.6-11.3); RBC Red Blood Cell Count 4.16 M/uL (3.86-4.86)
[2020-10-28 15:21] LABS: Potassium 3.3 mmol/L (3.5-5.1)
[2020-10-28] MEDS ORDERED: dexAMETHasone 10 MG/ML VIAL ONE (15:40)
[2020-10-28] MEDS ORDERED: IPRATROPIUM BROM 0.5MG/2.5ML ONE ×2 (15:40→16:08)
[2020-10-28] MEDS ORDERED: ALBUTEROL 2.5 MG/3 ML NEB SOL ONE (15:41)
--- NOTE | 2020-10-28 16:06 | RAD REPORT ---
EXAM DESCRIPTION: RAD - Chest Single View - 10/28/2020 3:39 pm CLINICAL HISTORY: DYSPNEA, could not positive COMPARISON: Two view chest July 2019 TECHNIQUE: AP portable chest image was obtained 10/28/2020 3:39 pm . FINDINGS: Lung volumes are reduced compared to the prior study. Right hemidiaphragm elevation is aga in noted. A few small patchy alveolar opacities are present in both lung medina. Right base atelectas is is present. Current findings are nonspecific. COVID-19 pneumonia is possible though findings do no t appear substantial on chest imaging. Heart and vasculature are normal. No measurable pleural effusion and no pneumothorax. No acute bony abnormality seen. No acute aortic findings suspected. IMPRESSION: Chronic interstitial lung disease with superimposed patchy lung parenchymal opacities. Findings are not substantial but could indicate a COVID-19 pneumonia. Follow-up CT imaging could be p erformed for more definitive assessment.
[2020-10-28 16:48] LABS: Protime INR 0.93
[2020-10-28 16:58] LABS: Albumin 2.9 g/dL (3.4-5.0); Bilirubin Direct 0.1 mg/dL (0-0.2); Bilirubin Total 0.3 mg/dL (0.2-1.0); C-Reactive Protein 25.2 mg/L (<3.00); Ferritin 138.1 ng/mL (8-388); Protein, Total 6.8 g/dL (6.4-8.2); Troponin (Emerg Dept Use Only) 0.02 ng/mL (0.0-0.045)
--- NOTE | 2020-10-28 16:59 | RAD REPORT ---
EXAM DESCRIPTION: CT - Chest For Pe Angio - 10/28/2020 4:19 pm CLINICAL HISTORY: DYSPNEA DYSPNEA , COVID positive, difficulty breathing COMPARISON: Ct Low Dose Chest Screening dated 03/15/2017; Chest Single View dated 10/28/2020 TECHNIQUE: Dynamically enhanced 3 mm thick images of the chest were obtained during administration o f approximately 150mL Isovue 370 IV contrast. Coronal and oblique MIP reconstruction images were gene rated and reviewed. Exam utilizes a protocol to evaluate the pulmonary arterial tree. All CT scans are performed using dose optimization technique as appropriate and may include automated exposure control or mA/KV adjustment according to patient size. FINDINGS: No pulmonary emboli are identified. Aorta shows no acute findings. There are moderate severity aortic atherosclerotic wall calcifications . Calcifications extend into the origin of the great vessels. Patient has normal aortic variant with the right subclavian artery arising from the aortic arch and traversing posterior to the esophagus. N o pericardial thickening or effusion. Patient has underlying COPD similar in severity to the 2017 study. There are superimposed ground-glas s opacities in the mid and lower lung medina. Chronic atelectasis changes at the right lung base. Pat tern is consistent with a mild to moderate COVID-19 pneumonia. No pleural effusion or pleural thicken ing. No pneumothorax. No mediastinal or hilar suspicious masses. No chest wall masses or abnormal axillary lymphadenopathy. IMPRESSION: No pulmonary emboli identified. Mild to moderate COVID-19 pneumonia pattern superimposed on COPD.
--- NOTE | 2020-10-28 17:42 | ER ---
Nurse's Notes [facility] Name: Shwetha Chirinos Age: 75 yrs Sex: Female : 1945 Arrival Date: 10/28/2020 Time: 13:07 Bed 13 Private MD: Diagnosis: Coronavirus infection, unspecified-hypoxia Presentation: 10/28 13:20 Chief complaint: Patient states: COVID + on 10/21/20. Pt c/o headache and decreased ss appetite x 3 days. Denies difficulty breathing. Coronavirus screen: Client denies travel out of the [place] in the last 14 days. Ebola Screen: Patient denies exposure to infectious person. Patient denies travel to an Ebola-affected area in the 21 days before illness onset. Initial Sepsis Screen: Does the patient meet any 2 criteria? No. Patient's initial sepsis screen is negative. Does the patient have a suspected source of infection? No. Patient's initial sepsis screen is negative. Risk Assessment: Do you want to hurt yourself or someone else? Patient reports no desire to harm self or others. Onset of symptoms was October 25, 2020. 13:20 Method Of Arrival: Ambulatory ss 13:20 Acuity: TAYLOR 3 ss Historical: - Allergies: 13:22 Codeine; ss - PMHx: 13:22 COPD; Hypertension; ss - PSHx: 13:22 Tonsillectomy; Hysterectomy; hand surgery; catarac surgery; Cholecystectomy; ss - Immunization history:: Adult Immunizations up to date. - Social history:: Smoking status: Patient denies any tobacco usage or history of. Screenin:55 Abuse screen: Denies threats or abuse. Denies injuries from another. Nutritional ec1 screening: No deficits noted. Tuberculosis screening: No symptoms or risk factors identified. Fall Risk Fall in past 12 months (25 points). Secondary diagnosis (15 points) IV access (20 points). Ambulatory Aid- None/Bed Rest/Nurse Assist (0 pts). Gait- Normal/Bed Rest/Wheelchair (0 pts) Mental Status- Oriented to own ability (0 pts). Assessment: 14:55 General: Appears in no apparent distress. comfortable, Behavior is calm, cooperative. ec1 Pain: Complains of pain in head. Neuro: Level of Consciousness is awake, alert, obeys commands, Oriented to person, place, time, situation. Cardiovascular: Rhythm is sinus rhythm. Respiratory: Airway is patent Respiratory effort is even, unlabored, Breath sounds are diminished bilaterally. GI: Reports nausea, vomiting. : No signs and/or symptoms were reported regarding the genitourinary system. EENT: No signs and/or symptoms were reported regarding the EENT system. Derm: No signs and/or symptoms reported regarding the dermatologic system. Musculoskeletal: No signs and/or symptoms reported regarding the musculoskeletal system. 15:30 Reassessment: Patient appears in no apparent distress at this time. No changes from ec1 previously documented assessment. Patient and/or family updated on plan of care and expected duration. Pain level reassessed. Pt reports allergy to albuterol. Neb held. 17:13 Reassessment: No changes from previously documented assessment. Patient and/or family ec1 updated on plan of care and expected duration. Pain level reassessed. Pt taken off oxygen. Spo2 dropped to 85%. Pt replaced back on 4 L NC. Dagoberto TIP PRINTER notified. 10/29 20:56 Reassessment: report given to TORRES egan. ll2 Vital Signs: 10/28 13:20 BP 147 / 92; Pulse 99; Resp 18; Temp 98.2(TE); Pulse Ox 90% on R/A; Weight 60.33 kg; ss Height 5 ft. 5 in. (165.10 cm); Pain 8/10; 15:00 BP 140 / 79; Pulse 87; Resp 16 S; Pulse Ox 80% on R/A; ec1 15:05 Pulse Ox 79% on R/A; ec1 15:05 Pulse Ox 90% on 4 lpm NC; ec1 15:19 Pulse Ox 96% on 4 lpm NC; ec1 16:00 BP 152 / 93; Pulse 84; Resp 18 S; Pulse Ox 95% on 4 lpm NC; ec1 17:06 BP 155 / 84; Pulse 76; Resp 16 S; Pulse Ox 85% on R/A; ec1 17:07 Pulse Ox 94% on 4 lpm NC; ec1 13:20 Body Mass Index 22.13 (60.33 kg, 165.10 cm) ss 13:20 HX of COPD ss ED Course: 13:07 Patient arrived in ED. ag5 13:22 Triage completed. ss 13:22 Arm band placed on right wrist. ss 13:47 Janessa Arenas [facility]-C [facility] kb 13:47 Nasir Martinez MD is Attending Physician. kb 14:33 Susan Youssef, RN is Primary Nurse. ec1 14:45 Initial lab(s) drawn, by me, sent to lab. Inserted saline lock: 20 gauge in right dh3 antecubital area, using aseptic technique. Blood collected. 14:55 Patient has correct armband on for positive identification. Placed in gown. Bed in low ec1 position. 15:39 Chest Single View XRAY In Process Unspecified. EDMS 16:[address] via stretcher. ec1 16:11 Inserted saline lock: 20 gauge in left antecubital area, using aseptic technique. Blood ec1 collected. 16:20 CT Chest For PE Angio In Process Unspecified. EDMS 17:41 Cristian Montenegro DO is Hospitalizing Provider. kb 19:24 Report given to Gwendolyn MACDONALD. ec1 10/29 01:00 No provider procedures requiring assistance completed. Patient admitted, IV remains in wh place. Administered Medications: 10/28 14:57 Drug: Zofran (Ondansetron) 4 mg Route: IVP; Site: right antecubital; ec1 15:10 Follow up: Response: No adverse reaction ec1 14:58 Drug: TORadol - Ketorolac 15 mg Route: IVP; Site: right antecubital; ec1 15:10 Follow up: Response: No adverse reaction ec1 15:01 Drug: NS 0.9% 500 ml Route: IV; Rate: bolus; Site: right antecubital; ec1 15:30 Follow up: IV Status: Completed infusion ec1 15:30 Drug: Decadron - Dexamethasone 10 mg Route: IVP; Site: right antecubital; ec1 16:11 Follow up: Response: No adverse reaction ec1 16:28 Not Given (Patient Refused): Albuterol 2.5 mg Inhalation once ec1 16:28 Drug: AtroVENT Aerosol 0.5 mg Route: Inhalation; ec1 Outcome: 17:41 Decision to Hospitalize by Provider. kb 10/29 01:00 Admitted to ER Hold. Please see [facility] for further documentation. wh Condition: stable Instructed on the need for admit. 20:56 Patient left the ED. ll2 Signatures: Dispatcher [employer] Janessa Hernandez, GANG PLANK WORKMAN-C GANG PLANK WORKMAN-Ckb Pooja Salamanca, RN RN Frida Najera 3 Hui Callejas [employer] [facility] Yue Rajan, RN RN ll2 Susan Youssef RN RN ec1
--- NOTE | 2020-10-28 17:43 | EDPHYS ---
Physician Documentation [facility] Name: Shwetha Chirinos Age: 75 yrs Sex: Female : 1945 Arrival Date: 10/28/2020 Time: 13:07 Bed 13 Private MD: ED Physician Nasir Martinez HPI: 10/28 14:37 This 75 yrs old Female presents to ER via Ambulatory with complaints of kb Decreased Appetite, COVID+. 14:37 The patient or guardian reports flu symptoms, no appetite. Onset: The symptoms/episode kb began/occurred 6 day(s) ago. Severity of symptoms: At their worst the symptoms were moderate, in the emergency department the symptoms are unchanged. Modifying factors: The symptoms are alleviated by nothing, the symptoms are aggravated by nothing. Associated signs and symptoms: Pertinent positives: nausea, Pertinent negatives: chest pain, diarrhea, ear ache, fever, rhinorrhea, sore throat, vomiting. The patient has not experienced similar symptoms in the past. The patient has not recently seen a physician. "I was diagnosed with COVID and the side effects are bothering me. I've had nausea, decreased appetite, and headaches." . Historical: - Allergies: 13:22 Codeine; ss - PMHx: 13:22 COPD; Hypertension; ss - PSHx: 13:22 Tonsillectomy; Hysterectomy; hand surgery; catarac surgery; Cholecystectomy; ss - Immunization history:: Adult Immunizations up to date. - Social history:: Smoking status: Patient denies any tobacco usage or history of. ROS: 14:36 Cardiovascular: Negative for chest pain, palpitations, and edema, Respiratory: Negative kb for shortness of breath, cough, wheezing, and pleuritic chest pain, Back: Negative for injury and pain, MS/Extremity: Negative for injury and deformity, Skin: Negative for injury, rash, and discoloration. 14:36 Constitutional: Positive for malaise. 14:36 Abdomen/GI: Positive for nausea, decreased appetite. 14:36 Neuro: Positive for headache. Exam: 14:36 Constitutional: This is a well developed, well nourished patient who is awake, alert, kb and in no acute distress. Head/Face: Normocephalic, atraumatic. Chest/axilla: Normal chest wall appearance and motion. Nontender with no deformity. No lesions are appreciated. Cardiovascular: Regular rate and rhythm with a normal S1 and S2. No gallops, murmurs, or rubs. Normal PMI, no JVD. No pulse deficits. Respiratory: Lungs have equal breath sounds bilaterally, clear to auscultation and percussion. No rales, rhonchi or wheezes noted. No increased work of breathing, no retractions or nasal flaring. Abdomen/GI: Soft, non-tender, with normal bowel sounds. No distension or tympany. No guarding or rebound. No evidence of tenderness throughout. Skin: Warm, dry with normal turgor. Normal color with no rashes, no lesions, and no evidence of cellulitis. MS/ Extremity: Pulses equal, no cyanosis. Neurovascular intact. Full, normal range of motion. Neuro: Awake and alert, GCS 15, oriented to person, place, time, and situation. Cranial nerves II-XII grossly intact. Motor strength 5/5 in all extremities. Sensory grossly intact. Cerebellar exam normal. Normal gait. Vital Signs: 13:20 BP 147 / 92; Pulse 99; Resp 18; Temp 98.2(TE); Pulse Ox 90% on R/A; Weight 60.33 kg; ss Height 5 ft. 5 in. (165.10 cm); Pain 8/10; 15:00 BP 140 / 79; Pulse 87; Resp 16 S; Pulse Ox 80% on R/A; ec1 15:05 Pulse Ox 79% on R/A; ec1 15:05 Pulse Ox 90% on 4 lpm NC; ec1 15:19 Pulse Ox 96% on 4 lpm NC; ec1 16:00 BP 152 / 93; Pulse 84; Resp 18 S; Pulse Ox 95% on 4 lpm NC; ec1 17:06 BP 155 / 84; Pulse 76; Resp 16 S; Pulse Ox 85% on R/A; ec1 17:07 Pulse Ox 94% on 4 lpm NC; ec1 13:20 Body Mass Index 22.13 (60.33 kg, 165.10 cm) ss 13:20 HX of COPD ss MDM: 14:26 Patient medically screened. kb 14:37 Data reviewed: vital signs, nurses notes. kb 17:23 Data interpreted: Pulse oximetry: on room air is 90 %. Interpretation: normal for pt. kb 17:25 Counseling: I had a detailed discussion with the patient and/or guardian regarding: the kb historical points, exam findings, and any diagnostic results supporting the discharge/admit diagnosis, lab results, radiology results, the need for further work-up and treatment in the hospital. ED course: oxygen decreased to 85% when taken off of supplemental oxygen. . 17:40 Physician consultation: Cristian Montenegro DO was contacted at 17:40, regarding admission, kb to the telemetry unit. patient's condition, and will see patient in ED. 10/28 14:32 Order name: CBC with Diff; Complete Time: 15:43 kb 10/28 14:32 Order name: Basic Metabolic Panel; Complete Time: 15:23 kb 10/28 15:50 Order name: Blood Culture Adult (2) kb 10/28 15:50 Order name: C-Reactive Protein; Complete Time: 17:02 kb 10/28 15:50 Order name: Ferritin; Complete Time: 17:02 kb 10/28 15:50 Order name: Lactate; Complete Time: 16:51 kb 10/28 15:50 Order name: LFT's; Complete Time: 17:02 kb 10/28 15:50 Order name: Lipase; Complete Time: 17:02 kb 10/28 15:50 Order name: Procalcitonin; Complete Time: 17:11 kb 10/28 15:50 Order name: PT-INR; Complete Time: 16:51 kb 10/28 15:50 Order name: Ptt, Activated; Complete Time: 16:51 kb 10/28 15:50 Order name: Troponin (emerg Dept Use Only); Complete Time: 17:02 kb 10/28 18:06 Order name: Basic Metabolic Panel EDMS 10/28 18:06 Order name: Basic Metabolic Panel EDMS 10/28 15:07 Order name: Chest Single View XRAY; Complete Time: 16:08 kb 10/28 15:50 Order name: CT Chest For PE Angio; Complete Time: 17:02 kb 10/28 18:06 Order name: C-Reactive Protein EDMS 10/28 18:06 Order name: C-Reactive Protein EDMS 10/28 18:06 Order name: C-Reactive Protein EDMS 10/28 18:06 Order name: CBC with Automated Diff EDMS 10/28 18:06 Order name: CBC with Automated Diff EDMS 10/28 18:06 Order name: Ferritin EDMS 10/28 18:06 Order name: Ferritin EDMS 10/28 18:06 Order name: Ferritin EDMS 10/28 18:06 Order name: Magnesium EDMS 10/28 18:06 Order name: Magnesium EDMS 10/29 10:35 Order name: CBC Smear Scan EDMS 10/28 14:32 Order name: IV Start; Complete Time: 14:55 kb 10/28 15:50 Order name: Droplet/Contact Precautions; Complete Time: 16:10 kb 10/28 15:50 Order name: EKG; Complete Time: 15:51 kb 10/28 15:50 Order name: Cardiac monitoring; Complete Time: 15:55 kb 10/28 15:50 Order name: EKG - Nurse/Tech; Complete Time: 16:11 kb 10/28 15:50 Order name: Labs collected and sent; Complete Time: 16:10 kb 10/28 15:50 Order name: O2 Per Protocol; Complete Time: 16:10 kb 10/28 15:50 Order name: O2 Sat Monitoring; Complete Time: 16:10 kb 10/28 18:06 Order name: CONS Physician Consult EDMS 10/28 18:06 Order name: Social Service Consult EDMS 10/28 18:06 Order name: Heart Healthy EDMS Administered Medications: 14:57 Drug: Zofran (Ondansetron) 4 mg Route: IVP; Site: right antecubital; ec1 15:10 Follow up: Response: No adverse reaction ec1 14:58 Drug: TORadol - Ketorolac 15 mg Route: IVP; Site: right antecubital; ec1 15:10 Follow up: Response: No adverse reaction ec1 15:01 Drug: NS 0.9% 500 ml Route: IV; Rate: bolus; Site: right antecubital; ec1 15:30 Follow up: IV Status: Completed infusion ec1 15:30 Drug: Decadron - Dexamethasone 10 mg Route: IVP; Site: right antecubital; ec1 16:11 Follow up: Response: No adverse reaction ec1 16:28 Not Given (Patient Refused): Albuterol 2.5 mg Inhalation once ec1 16:28 Drug: AtroVENT Aerosol 0.5 mg Route: Inhalation; ec1 Disposition: 10/30 07:07 Co-signature as Attending Physician, Nasir Martinez MD. rn Disposition: 10/28/20 17:41 Hospitalization ordered by Cristian Montenegro for Observation. Preliminary diagnosis is Coronavirus infection, unspecified - hypoxia. - Bed requested for Telemetry/MedSurg (observation). - Status is Observation. ll2 - Condition is Stable. - Problem is new. - Symptoms are unchanged. Signatures: Dispatcher [employer] EDNH Janessa Arenas, REVENUE SETTLEMENTS ADMINISTRATOR-C REVENUE SETTLEMENTS ADMINISTRATOR-Ckb Nasir Martinez MD MD rn Smirch, Shelby, RN RN Doug Saul REVENUE SETTLEMENTS ADMINISTRATOR-C REVENUE SETTLEMENTS ADMINISTRATOR-Cla1 Erendira Johnson, RN RN cg Yue Rajan, RN RN ll2 Susan Youssef, RN RN ec1 Corrections: (The following items were deleted from the chart) 10/28 20:53 17:41 Hospitalization Ordered by Cristian Montenegro DO for Observation. Preliminary cg diagnosis is Coronavirus infection, unspecified - hypoxia. Bed requested for Telemetry/MedSurg (observation). Status is Observation. Condition is Stable. Problem is new. Symptoms are unchanged. kb 10/29 20:14 10/28 20:53 10/28/2020 17:41 Hospitalization Ordered by Cristian Montenegro DO for cg Observation. Preliminary diagnosis is Coronavirus infection, unspecified - hypoxia. Bed requested for [facility] ER HOLD. Status is Observation. Condition is Stable. Problem is new. Symptoms are unchanged. cg 10/29 20:56 20:14 10/28/2020 17:41 Hospitalization Ordered by Cristian Montenegro DO for Observation. ll2 Preliminary diagnosis is Coronavirus infection, unspecified - hypoxia. Bed requested for Telemetry/MedSurg (observation). Status is Observation. Condition is Stable. Problem is new. Symptoms are unchanged.
[2020-10-28] MEDS ORDERED: MELATONIN 5 MG TABLET PO PRN (17:56)
[2020-10-28] MEDS ORDERED: ACETAMINOPHEN 500 MG TAB PO PRN (18:02)
[2020-10-28] MEDS ORDERED: ONDANSETRON 4 MG/2 ML VIAL IV PRN (18:02)
[2020-10-28] MEDS ORDERED: BENZONATATE 100 MG CAP PO PRN (18:02)
--- NOTE | 2020-10-28 19:10 | P.HP ---
Certification for Inpatient Patient admitted to: Observation With expected LOS: <2 Midnights Patient will require the following post-hospital care: None Practitioner: I am a practitioner with admitting privileges, knowledge of patient current condition, hospital course, and medical plan of care. Services: Services provided to patient in accordance with Admission requirements found in Title 42 Section 412.3 of the Code of Federal Regulations <Doug Saul - Last Filed: 10/28/20 19:08> Patient admitted to: Observation <Cristian Montenegro - Last Filed: 10/29/20 09:14> Patient History Date of Service: 10/28/20 Primary Care Provider: Mynor, Dr. Nuñez Reason for admission: COVID pneumonia with hypoxia History of Present Illness: 75-year-old female with history of COPD presents to the emergency department for shortness of breath. Patient reportedly tested positive for COVID with test performed on 10/23/2020 result returned 10/26/2020. Patient with increasing shortness of breath, upon presentation to the ED patient's room air saturations 85%. CRP 25 ferritin 138. Patient tolerating nasal cannula at 2-3 L at this time. ED provider wishes to admit patient for further evaluation and management. - Past Medical/Surgical History -: COPD -: GERD -: Hyperlipidemia -: Cholecystectomy -: Hysterectomy Psychosocial/ Personal History: Patient is retired and lives alone - Family History Family History: Reviewed- Non-Contributory - Social History Smoking Status: Former smoker Alcohol use: No CD- Drugs: No Caffeine use: Yes Place of Residence: Home <Doug Saul - Last Filed: 10/28/20 19:08> Date of Service: 10/29/20 - Past Medical/Surgical History Diabetic: No - Family History Family History: Reviewed- Non-Contributory <Cristian Montenegro - Last Filed: 10/29/20 09:14> Allergies codeine Allergy (Verified 07/31/19 10:30) Unknown Home Medications: Omeprazole [Prilosec] 40 mg PO DAILY 07/31/19 Prednisone [Sterapred Ds] 10 mg PO PRN 07/31/19 Rosuvastatin Calcium 40 mg PO DAILY 07/31/19 Review of Systems 10-point ROS is otherwise unremarkable Respiratory: Cough, Shortness of Breath <Doug Saul - Last Filed: 10/28/20 19:08> Physical Examination - Physical Exam General: Alert, In no apparent distress HEENT: Atraumatic, PERRLA Neck: Supple, 2+ carotid pulse no bruit Respiratory: Clear to auscultation bilaterally, Diminished (Bilaterally) Cardiovascular: Regular rate/rhythm, Normal S1 S2 Gastrointestinal: Normal bowel sounds, No tenderness Musculoskeletal: No tenderness Integumentary: No rashes Neurological: Normal speech, Normal strength at 5/5 x4 extr, Normal tone, Normal affect - Studies Laboratory Data (last 24 hrs) 10/28/20 16:08: PT 11.0, INR 0.93, APTT 23.1 L 10/28/20 16:08: Total Bilirubin 0.3, AST 72 H, ALT 36, Alkaline Phosphatase 116, Lipase 251 10/28/20 14:46: Sodium 143, Potassium 3.3 L, BUN 18, Creatinine 1.05, Glucose 107 H 10/28/20 14:46: WBC 6.5, Hgb 13.1, Hct 39.6, Plt Count 196 <Doug Saul - Last Filed: 10/28/20 19:08> - Studies Laboratory Data (last 24 hrs) 10/28/20 16:08: PT 11.0, INR 0.93, APTT 23.1 L 10/28/20 16:08: Total Bilirubin 0.3, AST 72 H, ALT 36, Alkaline Phosphatase 116, Lipase 251 10/28/20 14:46: Sodium 143, Potassium 3.3 L, BUN 18, Creatinine 1.05, Glucose 107 H 10/28/20 14:46: WBC 6.5, Hgb 13.1, Hct 39.6, Plt Count 196 <Cristian Montenegro - Last Filed: 10/29/20 09:14> Assessment and Plan - Plan Assessment COVID pneumonia with hypoxia with underlying COPD Hyperlipidemia GERD Plan Continue with IV steroids, oral supplements. Patient doing well on nasal cannula at this time, repeat CRP, ferritin with morning labs. If patient is still doing well in the morning and we can arrange for home oxygen to be set up she can likely go home at that time. Orders for daily room air saturations and room air saturations for home oxygen in place, social work consult in place. P.r.n. medications for cough in place. DVT prophylaxis with Lovenox. Continue home medications for hyperlipidemia and GERD. Patient amenable with this plan. Discharge Plan: Home Plan to discharge in: 24 Hours - Advance Directives Does patient have a Living Will: No Does patient have a Durable POA for Healthcare: No - Code Status/Comfort Care Code Status Assessed: Yes (Full code) Critical Care: No Time Spent Managing Pts Care (In Minutes): 55 <Dogu Saul - Last Filed: 10/28/20 19:08> - Plan Case discussed in detail with nurse practitioner. Patient do well this time. Will plan for discharge if oxygen can be arranged. Please see discharge order for details. <Cristian Montenegro - Last Filed: 10/29/20 09:14>
[2020-10-28] MEDS: ENOXAPARIN 40 MG/0.4 ML SQ SCH (21:00)
[2020-10-28] MEDS: ASCORBIC ACID 500 MG TABLET PO SCH (21:00)
--- NOTE | 2020-10-28 22:30 | EKG ---
Test Date: 2020-10-28 Test Time: 16:03:12 Telecommunications Support: JONN MEASUREMENT RESULTS: Intervals: Rate: 82 IA: 194 QRSD: 86 QT: 386 QTc: 450 [place]: P: 31 IA: 194 QRS: -2 T: 17 INTERPRETIVE STATEMENTS: Normal sinus rhythm Minimal voltage criteria for LVH, may be normal variant Borderline ECG Compared to ECG 08/03/2019 10:12:58 Left ventricular hypertrophy now present Electronically Signed On 10-28-20 22:29:19 ASSOCIATE VETERINARIAN by Salomón George
[2020-10-28] MEDS ORDERED: ACETAMINOPHEN 500 MG TAB ONE (22:58)
[2020-10-28] MEDS ORDERED: ASCORBIC ACID 500 MG TABLET ONE (22:58)
[2020-10-28] MEDS ORDERED: ENOXAPARIN 40 MG/0.4 ML SQ ONE (22:59)
[2020-10-29] MEDS ORDERED: METHYLPREDNISOLONE 125 MG INJ IV SCH (01:00)
[2020-10-29] MEDS ORDERED: METHYLPREDNISOLONE 125 MG INJ ONE (02:50)
[2020-10-29 05:46] LABS: Absolute Lymphocytes (CBC) 0.6 K/uL (0.7-4.9); Basophils % 0.1 % (0-1.3); Hematocrit 35.6 % (36.0-45.0); Lymphocytes % 15.6 % (15.3-44.8); MPV 9.7 fL (7.6-11.3); RBC Red Blood Cell Count 3.76 M/uL (3.86-4.86)
[2020-10-29 06:16] LABS: C-Reactive Protein 25.4 mg/L (<3.00); Ferritin 123.1 ng/mL (8-388)
[2020-10-29 06:17] LABS: Magnesium 2.3 mg/dL (1.8-2.4)
[2020-10-29] MEDS ORDERED: VITAMIN D 1000 UNIT TAB ONE (08:21)
[2020-10-29] MEDS ORDERED: ASPIRIN EC 81 MG TAB PO ONE (08:21)
[2020-10-29] MEDS ORDERED: ENOXAPARIN 40 MG/0.4 ML SQ ONE (08:22)
[2020-10-29] MEDS ORDERED: ZINC SULFATE 220 MG CAP ONE (08:22)
[2020-10-29] MEDS ORDERED: predniSONE 20 MG TAB ONE (08:22)
[2020-10-29] MEDS ORDERED: ASCORBIC ACID 500 MG TABLET ONE ×2 (08:22→13:40)
[2020-10-29] MEDS: ZINC SULFATE 220 MG CAP PO SCH (08:36)
[2020-10-29] MEDS: ASPIRIN EC 81 MG TAB PO SCH (08:36)
[2020-10-29] MEDS: ENOXAPARIN 40 MG/0.4 ML SQ SCH (08:36)
[2020-10-29] MEDS: ASCORBIC ACID 500 MG TABLET PO SCH ×3 (08:36→22:45)
[2020-10-29] MEDS: VITAMIN D 1000 UNIT TAB PO SCH (08:36)
[2020-10-29] MEDS ORDERED: predniSONE 20 MG TAB PO SCH (09:00)
--- NOTE | 2020-10-29 09:22 | P.DS ---
Admission Date: 10/28/20 Discharge Date: 10/29/20 Primary Care Provider: None, Dr. Nuñez Disposition: ROUTINE DISCHARGE Discharge Condition: GOOD Reason for Admission: COVID pneumonia with hypoxia Consultations: Pulmonary-Dr. Nuñez Procedures: CT Scan: FINDINGS: No pulmonary emboli are identified. Aorta shows no acute findings. There are moderate severity aortic atherosclerotic wall calcifications. Calcifications extend into the origin of the great vessels. Patient has normal aortic variant with the right subclavian artery arising from the aortic arch and traversing posterior to the esophagus. No pericardial thickening or effusion. Patient has underlying COPD similar in severity to the 2017 study. There are superimposed ground-glass opacities in the mid and lower lung medina. Chronic atelectasis changes at the right lung base. Pattern is consistent with a mild to moderate COVID-19 pneumonia. No pleural effusion or pleural thickening. No pneumothorax. No mediastinal or hilar suspicious masses. No chest wall masses or abnormal axillary lymphadenopathy. IMPRESSION: No pulmonary emboli identified. Mild to moderate COVID-19 pneumonia pattern superimposed on COPD. Medical Problem List: Bilateral COVID pneumonia with hypoxia with underlying COPD Hyperlipidemia GERD Brief History of Present Illness: 75-year-old female presented with increasing shortness of breath. Patient recently diagnosed with COVID. Patient was evaluated the emergency room. Patient found to be hypoxic. Patient admitted for further evaluation and treatment. Hospital Course: Patient presented with increasing shortness of breast secondary to bilateral COVID 19 pneumonia. Patient with underlying COPD. Patient recently diagnosed. CT scan showed no evidence of pulmonary embolism. Patient did require oxygen. Patient was admitted for treatment. Patient has done well. Patient seen by pulmonology. At discharge patient without significant distress. Inflammatory markers stable. At discharge patient requiring 3 L per nasal cannula. At discharge patient will continue with oxygen to maintain sats above 93%. Patient currently on 3 L per nasal cannula. At discharge patient will continue with prednisone 20 mg 1 pill twice daily for 7 days then 1 pill once daily for 7 days. The patient will continue with vitamin-D 2000 units daily, vitamin-C 500 mg 3 times a day, zinc 220 mg daily, and melatonin 5 mg at bedtime. The patient will continue with at Fair 1 puff twice daily and Pro air 2 puffs 3 times a day as needed for shortness of breath. The patient will be provided Tessalon Perles 100 mg 3 times a day as needed for cough. Recommend follow up with pulmonology within 1 week. Patient will continue with COVID 19 guidelines an isolation. COPD education also provided. Patient will continue with aspirin 81 mg daily as well. Patient with history of GERD and hyperlipidemia. This appears stable. At discharge she will continue with Prilosec daily and Crestor 40 mg daily. Vital Signs/Physical Exam: Temp Pulse Resp BP Pulse Ox 98.2 F 62 18 116/89 96 10/29/20 04:00 10/29/20 04:00 10/29/20 04:00 10/29/20 04:00 10/29/20 04:00 General: Alert, In no apparent distress, Oriented x3, Cooperative HEENT: Atraumatic Neck: Supple Respiratory: Other (Patient stable on 3 L per nasal cannula, no respiratory distress noted) Cardiovascular: Normal pulses, Regular rate/rhythm Gastrointestinal: No guarding Neurological: Normal speech, Normal strength at 5/5 x4 extr, Normal tone, Normal affect Laboratory Data at Discharge: WBC 3.5 K/uL (4.3-10.9) L D 10/29/20 04:55 Hgb 12.0 g/dL (12.0-15.0) 10/29/20 04:55 Hct 35.6 % (36.0-45.0) L 10/29/20 04:55 Plt Count 190 K/uL (152-406) 10/29/20 04:55 PT 11.0 SECONDS (9.5-12.5) 10/28/20 16:08 INR 0.93 10/28/20 16:08 APTT 23.1 SECONDS (24.3-36.9) L 10/28/20 16:08 Sodium 143 mmol/L (136-145) 10/29/20 04:55 Potassium 4.0 mmol/L (3.5-5.1) 10/29/20 04:55 BUN 21 mg/dL (7-18) H 10/29/20 04:55 Creatinine 0.83 mg/dL (0.55-1.3) 10/29/20 04:55 Glucose 125 mg/dL (74-106) H 10/29/20 04:55 Magnesium 2.3 mg/dL (1.8-2.4) 10/29/20 04:55 Total Bilirubin 0.3 mg/dL (0.2-1.0) 10/28/20 16:08 AST 72 U/L (15-37) H 10/28/20 16:08 ALT 36 U/L (12-78) 10/28/20 16:08 Alkaline Phosphatase 116 U/L (45-117) 10/28/20 16:08 Lipase 251 U/L (73-393) 10/28/20 16:08 Home Medications: Omeprazole [Prilosec] 40 mg PO DAILY 07/31/19 Rosuvastatin Calcium 40 mg PO DAILY 07/31/19 Albuterol Sulfate [Proair Hfa] 2 puff IH TID PRN #1 hfa.aer.ad 10/29/20 Ascorbic Acid [Vitamin C*] 500 mg PO TID #90 tablet 10/29/20 Aspirin [Aspirin EC 81 MG] 81 mg PO DAILY #30 tablet. 10/29/20 Benzonatate [Tessalon Perle*] 100 mg PO TID PRN #20 cap 10/29/20 Cholecalciferol (Vitamin D3) [Vitamin D 1000 Iu Tab*] 2,000 unit PO DAILY #60 tab 10/29/20 Fluticasone/Salmeterol [Advair 250-50 Diskus] 1 each IH BID #1 blst.w.dev 10/29/20 Melatonin 5 mg PO BEDTIME PRN PRN #30 tablet 10/29/20 Zinc Sulfate [Zinc Sulfate*] 220 mg PO DAILY #30 cap 10/29/20 predniSONE [Prednisone*] 20 mg PO SEECOM #21 tab 10/29/20 New Medications: Fluticasone/Salmeterol [Advair 250-50 Diskus] 1 each IH BID #1 blst.w.dev Aspirin [Aspirin EC 81 MG] 81 mg PO DAILY #30 tablet. Melatonin 5 mg PO BEDTIME PRN PRN #30 tablet PRN Reason: Insomnia predniSONE [Prednisone*] 20 mg PO SEECOM #21 tab Albuterol Sulfate [Proair Hfa] 2 puff IH TID PRN #1 hfa.aer.ad PRN Reason: Shortness Of Breath Benzonatate [Tessalon Perle*] 100 mg PO TID PRN #20 cap PRN Reason: Cough Ascorbic Acid [Vitamin C*] 500 mg PO TID #90 tablet Cholecalciferol (Vitamin D3) [Vitamin D 1000 Iu Tab*] 2,000 unit PO DAILY #60 tab Zinc Sulfate [Zinc Sulfate*] 220 mg PO DAILY #30 cap Patient Discharge Instructions: Follow up with PCP in 1 week to follow up this hospitalization. Patient presented with increasing shortness of breast secondary to bilateral COVID 19 pneumonia. Patient with underlying COPD. Patient recently diagnosed. CT scan showed no evidence of pulmonary embolism. Patient did require oxygen. Patient was admitted for treatment. Patient has done well. Patient seen by pulmonology. At discharge patient without significa nt distress. Inflammatory markers stable. At discharge patient requiring 3 L per nasal cannula. At discharge patient will continue with oxygen to maintain sats above 93%. Patient currently on 3 L per nasal cannula. At discharge patient will continue with prednisone 20 mg 1 pill twice daily for 7 days then 1 pill once daily for 7 days. The patient will continue with vitamin-D 2000 units daily, vitamin-C 500 mg 3 times a day, zinc 220 mg daily, and melatonin 5 mg at bedtime. The patient will continue with at Fair 1 puff twice daily and Pro air 2 puffs 3 times a day as needed for shortness of breath. The patient will be provided Tessalon Perles 100 mg 3 times a day as needed for cough. Recommend follow up with pulmonology within 1 week. Patient will continue with COVID 19 guidelines an isolation. COPD education also provided. Patient will continue with aspirin 81 mg daily as well. Patient with history of GERD and hyperlipidemia. This appears stable. At discharge she will continue with Prilosec daily and Crestor 40 mg daily. Diet: AHA Activity: Ad ernie Followup: Unknown,U [Primary Care Provider] - Time spent managing pt's care (in minutes): 55
[2020-10-29] MEDS ORDERED: ONDANSETRON 4 MG/2 ML VIAL ONE (09:49)
[2020-10-29 10:34] LABS: Blood Morphology Comment NOT SEEN (NOT SEEN); Platelet Estimate ADEQ; Platelets, Giant FEW; White Blood Cell Scan OK (OK)
[2020-10-29] MEDS ORDERED: PROMETHAZINE INJ 25 MG/ML AMP IV ONE (12:06)
[2020-10-29] MEDS ORDERED: NA CHLORIDE 0.9% 250 ML IV ONE (16:17)
[2020-10-29] MEDS ORDERED: NA CHLORIDE 0.9% 250 ML ONE (16:59)
[2020-10-29] MEDS ORDERED: SODIUM CHLORIDE 0.9% 10ML INJ IV PRN (17:15)
[2020-10-29] MEDS: PANTOPRAZOLE 40 MG INJ IVP SCH (17:16)
[2020-10-29] MEDS ORDERED: ALBUTEROL 2.5 MG/3 ML NEB SOL NEB PRN (17:17)
[2020-10-29] MEDS ORDERED: IPRATROPIUM BROM 0.5MG/2.5ML NEB PRN (17:17)
[2020-10-29] MEDS ORDERED: METHYLPREDNISOLONE 40 MG INJ ONE (17:50)
[2020-10-29] MEDS: METHYLPREDNISOLONE 40 MG INJ IV SCH (18:00)
[2020-10-29] MEDS: DULERA 100/5 (MOMETASONE/FORMOTEROL) INHALER IH SCH (21:00)
[2020-10-30] MEDS ORDERED: METHYLPREDNISOLONE 40 MG INJ IV SCH (01:00)
[2020-10-30] MEDS: METHYLPREDNISOLONE 40 MG INJ IV SCH ×3 (02:23→17:17)
[2020-10-30 03:12] VITALS: BMI 20.9
[2020-10-30 07:48] LABS: C-Reactive Protein 12.5 mg/L (<3.00); Ferritin 103.9 ng/mL (8-388)
[2020-10-30] MEDS: DULERA 100/5 (MOMETASONE/FORMOTEROL) INHALER IH SCH (09:00)
[2020-10-30] MEDS: PANTOPRAZOLE 40 MG INJ IVP SCH (09:00)
[2020-10-30] MEDS: ZINC SULFATE 220 MG CAP PO SCH (09:01)
[2020-10-30] MEDS: ASPIRIN EC 81 MG TAB PO SCH (09:01)
[2020-10-30] MEDS: ASCORBIC ACID 500 MG TABLET PO SCH ×2 (09:01→14:22)
[2020-10-30] MEDS: VITAMIN D 1000 UNIT TAB PO SCH (09:02)
[2020-10-30] MEDS: ENOXAPARIN 40 MG/0.4 ML SQ SCH (09:02)
[2020-10-30 11:20] VITALS: O2SAT 88
--- NOTE | 2020-10-30 11:51 | RAD REPORT ---
EXAM DESCRIPTION: RAD - Chest Single View - 10/30/2020 7:20 am CLINICAL HISTORY: follow up COVID Chest pain. COMPARISON: Chest Single View dated 10/28/2020; Chest Pa And Lat (2 Views) dated 08/03/2019; Chest Pa And Lat (2 Views) dated 07/20/2018; Chest Pa And Lat (2 Views) dated 05/07/2018; Chest For Pe Angio irene ed 10/28/2020 FINDINGS: Portable technique limits examination quality. Mild bilateral interstitial lung infiltrates are again seen, essentially stable since comparative mae dy. The heart is upper limit normal in size. Aortic atherosclerosis. IMPRESSION: Stable chest since 10/28/2020.
[2020-10-30] MEDS ORDERED: FAMOTIDINE 20 MG/2 ML VIAL IV SCH (12:00)
--- NOTE | 2020-10-30 12:39 | P.PN ---
Subjective Date of Service: 10/30/20 Primary Care Provider: Mynor, Dr. Nuñez Chief Complaint: COVID pneumonia with hypoxia Subjective: Improving (Patient on 5 L per nasal cannula.) Physical Examination - Vital Signs Temperature: 97 F Blood Pressure: 122/73 Pulse: 57 Respirations: 36 Pulse Ox (%): 91 - Physical Exam General: Alert, Cooperative HEENT: Atraumatic Neck: Supple Respiratory: Other (Patient on 5 L per nasal cannula. No distress noted ) Cardiovascular: Normal pulses Neurological: Normal speech, Normal strength at 5/5 x4 extr, Normal tone, Normal affect - Studies Medications List Reviewed: Yes Assessment & Plan Discharge Plan: Home Plan to discharge in: 24 Hours Physician Review Additional Text: Impression: Bilateral COVID pneumonia with hypoxia with underlying COPD Hyperlipidemia GERD Plan: Bilateral COVID pneumonia with hypoxia with underlying COPD: Continue IV Solu- Medrol. Inflammatory markers stable. Continue wean down on oxygen. Will ambulate patient today. Encourage incentive spirometer. Case discussed with pulmonology. Possible discharge as early as today if able to ambulate and less than 4 L per nasal cannula. Will reassess later today. If no improvement will continue monitor for 24 hr with the possibility of Remdesivir. If the patient remains I will turn the service over to the hospitalist team tomorrow. I will go plan of care with him. Hyperlipidemia: Continue medication GERD: Continue medication Time Spent Managing Pts Care (In Minutes): 55
--- NOTE | 2020-10-30 14:51 | P.CNS ---
Date of Consult: 10/30/20 Primary Care Provider: None, Dr. Nuñez Chief Complaint: COVID pneumonia with hypoxia History of Present Illness: Age75 AW SOB/ Pos COVID 10/23/2020, [employer] SOB AW resp falure HX of CODP. Doign better Allergies codeine Allergy (Verified 07/31/19 10:30) Unknown Home Medications: Omeprazole [Prilosec] 40 mg PO DAILY 07/31/19 Rosuvastatin Calcium 40 mg PO DAILY 07/31/19 Albuterol Sulfate [Proair Hfa] 2 puff IH TID PRN #1 hfa.aer.ad 10/29/20 Ascorbic Acid [Vitamin C*] 500 mg PO TID #90 tablet 10/29/20 Aspirin [Aspirin EC 81 MG] 81 mg PO DAILY #30 tablet. 10/29/20 Benzonatate [Tessalon Perle*] 100 mg PO TID PRN #20 cap 10/29/20 Cholecalciferol (Vitamin D3) [Vitamin D 1000 Iu Tab*] 2,000 unit PO DAILY #60 tab 10/29/20 Fluticasone/Salmeterol [Advair 250-50 Diskus] 1 each IH BID #1 blst.w.dev 10/29/20 Melatonin 5 mg PO BEDTIME PRN PRN #30 tablet 10/29/20 Zinc Sulfate [Zinc Sulfate*] 220 mg PO DAILY #30 cap 10/29/20 predniSONE [Prednisone*] 20 mg PO SEECOM #21 tab 10/29/20 - Past Medical/Surgical History Diabetic: No -: COPD -: GERD -: Hyperlipidemia -: Crohn's disease -: Cholecystectomy -: Hysterectomy -: tonsillectomy Psychosocial/ Personal History: Patient is retired and lives alone - Social History Alcohol use: No CD- Drugs: No Caffeine use: Yes Place of Residence: Home Review of Systems 10-point ROS is otherwise unremarkable Respiratory: Cough, Shortness of Breath Physical Examination Temp Pulse Resp BP Pulse Ox 97 F 57 36 H 122/73 91 10/30/20 12:39 10/30/20 12:39 10/30/20 12:39 10/30/20 12:39 10/30/20 12:39 General: Alert, In no apparent distress, Oriented x3, Mild distress Respiratory: Clear to auscultation bilaterally, Diminished - Problems (1) Pneumonia due to 2019 novel coronavirus Current Visit: Yes Status: Acute Plan: Pt is 75 yr AW COVID penumonia LAbs improving minimal inflam changes on CT SAt sat yonis Christianson am. ILDEFONSO current meds
--- NOTE | 2020-10-30 15:53 | P.DS ---
Admission Date: 10/29/20 Discharge Date: 10/30/20 Primary Care Provider: None, Dr. Nuñez Disposition: ROUTINE DISCHARGE Discharge Condition: GOOD Reason for Admission: COVID pneumonia with hypoxia Consultations: Pulmonary-Dr. Nuñez Procedures: CT Scan: FINDINGS: No pulmonary emboli are identified. Aorta shows no acute findings. There are moderate severity aortic atherosclerotic wall calcifications. Calcifications extend into the origin of the great vessels. Patient has normal aortic variant with the right subclavian artery arising from the aortic arch and traversing posterior to the esophagus. No pericardial thickening or effusion. Patient has underlying COPD similar in severity to the 2017 study. There are superimposed ground-glass opacities in the mid and lower lung medina. Chronic atelectasis changes at the right lung base. Pattern is consistent with a mild to moderate COVID-19 pneumonia. No pleural effusion or pleural thickening. No pneumothorax. No mediastinal or hilar suspicious masses. No chest wall masses or abnormal axillary lymphadenopathy. IMPRESSION: No pulmonary emboli identified. Mild to moderate COVID-19 pneumonia pattern superimposed on COPD. Follow up CXR: FINDINGS: Portable technique limits examination quality. Mild bilateral interstitial lung infiltrates are again seen, essentially stable since comparative study. The heart is upper limit normal in size. Aortic atherosclerosis. IMPRESSION: Stable chest since 10/28/2020. Medical problem List: Acute respiratory failure secondary to Bilateral COVID pneumonia with hypoxia with underlying COPD Hyperlipidemia GERD Brief History of Present Illness: 75-year-old female presented with increasing shortness of breath. Patient recently diagnosed with COVID. Patient was evaluated the emergency room. Patient found to be hypoxic. Patient admitted for further evaluation and treatment. Hospital Course: Patient presented with increasing shortness of breath secondary acute respiratory failure related to bilateral COVID 19 pneumonia. This was complicated with her underlying history of COPD. Patient recently diagnosed. CT scan showed no evidence of pulmonary embolism. Patient did require oxygen. Patient was admitted for treatment. Patient has done well. Patient seen by pulmonology. At discharge patient without significant distress. Patient to ambulate without significant hypoxia on 4 L. inflammatory markers have improved. At discharge patient requiring 4 L per nasal cannula. At discharge patient will continue with oxygen to maintain sats above 93%. Patient currently on 3 L per nasal cannula. At discharge patient will continue with prednisone 20 mg 1 pill twice daily for 7 days then 1 pill once daily for 7 days. The patient will continue with vitamin-D 2000 units daily, vitamin-C 500 mg 3 times a day, zinc 220 mg daily, and melatonin 5 mg at bedtime. The patient will continue with Advair 1 puff twice daily and Pro air 2 puffs 3 times a day as needed for shortness of breath. The patient will be provided Tessalon Perles 100 mg 3 times a day as needed for cough. Recommend follow up with pulmonology within 1 week. Patient will continue with COVID 19 guidelines an isolation. COPD education also provided. Patient will continue with aspirin 81 mg daily as well. Patient with history of GERD and hyperlipidemia. This appears stable. At discharge she will continue with Prilosec 20 mg daily and Crestor 40 mg daily. Vital Signs/Physical Exam: Temp Pulse Resp BP Pulse Ox 97 F 57 36 H 122/73 91 10/30/20 12:39 10/30/20 12:39 10/30/20 12:39 10/30/20 12:39 10/30/20 12:39 General: Alert, In no apparent distress, Oriented x3, Cooperative HEENT: Atraumatic Neck: Supple Respiratory: Other (Patient breathing appropriately. On 4 L per nasal cannula. No distress noted.) Cardiovascular: Normal pulses, Regular rate/rhythm Gastrointestinal: Normal bowel sounds, No masses, No rebound, No guarding Neurological: Normal speech, Normal strength at 5/5 x4 extr, Normal tone, Normal affect Laboratory Data at Discharge: WBC 3.5 K/uL (4.3-10.9) L D 10/29/20 04:55 Hgb 12.0 g/dL (12.0-15.0) 10/29/20 04:55 Hct 35.6 % (36.0-45.0) L 10/29/20 04:55 Plt Count 190 K/uL (152-406) 10/29/20 04:55 PT 11.0 SECONDS (9.5-12.5) 10/28/20 16:08 INR 0.93 10/28/20 16:08 APTT 23.1 SECONDS (24.3-36.9) L 10/28/20 16:08 Sodium 143 mmol/L (136-145) 10/29/20 04:55 Potassium 4.0 mmol/L (3.5-5.1) 10/29/20 04:55 BUN 21 mg/dL (7-18) H 10/29/20 04:55 Creatinine 0.83 mg/dL (0.55-1.3) 10/29/20 04:55 Glucose 125 mg/dL (74-106) H 10/29/20 04:55 Magnesium 2.3 mg/dL (1.8-2.4) 10/29/20 04:55 Total Bilirubin 0.3 mg/dL (0.2-1.0) 10/28/20 16:08 AST 72 U/L (15-37) H 10/28/20 16:08 ALT 36 U/L (12-78) 10/28/20 16:08 Alkaline Phosphatase 116 U/L (45-117) 10/28/20 16:08 Lipase 251 U/L (73-393) 10/28/20 16:08 Home Medications: Omeprazole [Prilosec] 40 mg PO DAILY 07/31/19 Rosuvastatin Calcium 40 mg PO DAILY 07/31/19 Albuterol Sulfate [Proair Hfa] 2 puff IH TID PRN #1 hfa.aer.ad 10/29/20 Ascorbic Acid [Vitamin C*] 500 mg PO TID #90 tablet 10/29/20 Aspirin [Aspirin EC 81 MG] 81 mg PO DAILY #30 tablet. 10/29/20 Benzonatate [Tessalon Perle*] 100 mg PO TID PRN #20 cap 10/29/20 Cholecalciferol (Vitamin D3) [Vitamin D 1000 Iu Tab*] 2,000 unit PO DAILY #60 tab 10/29/20 Fluticasone/Salmeterol [Advair 250-50 Diskus] 1 each IH BID #1 blst.w.dev 10/29/20 Melatonin 5 mg PO BEDTIME PRN PRN #30 tablet 10/29/20 Zinc Sulfate [Zinc Sulfate*] 220 mg PO DAILY #30 cap 10/29/20 predniSONE [Prednisone*] 20 mg PO SEECOM #21 tab 10/29/20 New Medications: Fluticasone/Salmeterol [Advair 250-50 Diskus] 1 each IH BID #1 blst.w.dev Aspirin [Aspirin EC 81 MG] 81 mg PO DAILY #30 tablet. Melatonin 5 mg PO BEDTIME PRN PRN #30 tablet PRN Reason: Insomnia predniSONE [Prednisone*] 20 mg PO SEECOM #21 tab Albuterol Sulfate [Proair Hfa] 2 puff IH TID PRN #1 hfa.aer.ad PRN Reason: Shortness Of Breath Benzonatate [Tessalon Perle*] 100 mg PO TID PRN #20 cap PRN Reason: Cough Ascorbic Acid [Vitamin C*] 500 mg PO TID #90 tablet Cholecalciferol (Vitamin D3) [Vitamin D 1000 Iu Tab*] 2,000 unit PO DAILY #60 tab Zinc Sulfate [Zinc Sulfate*] 220 mg PO DAILY #30 cap Patient Discharge Instructions: Patient presented with increasing shortness of breath secondary acute respiratory failure related to bilateral COVID 19 pneumonia. This was complicated with her underlying history of COPD. Patient recently diagnosed. CT scan showed no evidence of pulmonary embolism. Patient did require oxygen. Patient was admitted for treatment. Patient has done well. Patient seen by pulmonology. At discharge patient without significant distress. Patient to ambulate without significant hypoxia on 4 L. inflammatory markers have improved. At discharge patient requiring 4 L per nasal cannula. At discharge patient will continue with oxygen to maintain sats above 93%. Patient currently on 3 L per nasal cannula. At discharge patient will continue with prednisone 20 mg 1 pill twice daily for 7 days then 1 pill once daily for 7 days. The patient will continue with vitamin-D 2000 units daily, vitamin-C 500 mg 3 times a day, zinc 220 mg daily, and melatonin 5 mg at bedtime. The patient will continue with Advair 1 puff twice daily and Pro air 2 puffs 3 times a day as needed for shortness of breath. The patient will be provided Tessalon Perles 100 mg 3 times a day as needed for cough. Recommend follow up with pulmonology within 1 week. Patient will continue with COVID 19 guidelines an isolation. COPD education also provided. Patient will continue with aspirin 81 mg daily as well. Patient with history of GERD and hyperlipidemia. This appears stable. At discharge she will continue with Prilosec 20 mg daily and Crestor 40 mg daily. Diet: AHA Activity: Ad ernie Followup: Unknown,U [Primary Care Provider] - Time spent managing pt's care (in minutes): 55
[2020-10-30 18:27] VITALS: BP 135/68; TEMP 97.7
[2020-10-30] MEDS ORDERED: FAMOTIDINE 20 MG TAB PO SCH (21:00)
== END 2020-10-30 18:49 | disposition home or self-care (01) | DRG 177 ==
LOC: ER 13:04 → ERHOLD 22:24 → OBSVTOIN 10-29 17:14 → 4TH 10-29 20:29
PROVIDERS: ADMIT Family Medicine; ATTEND Family Medicine
DX: U07.1 COVID-19 (principal); J12.82 Pneumonia due to coronavirus disease 2019; J96.01 Acute respiratory failure with hypoxia; J44.9 Chronic obstructive pulmonary disease, unspecified; E78.5 Hyperlipidemia, unspecified; K21.9 Gastro-esophageal reflux disease without esophagitis; I10 Essential (primary) hypertension; Z90.710 Acquired absence of both cervix and uterus; Z90.49 Acquired absence of other specified parts of digestive tract; Z60.2 Problems related to living alone; Z88.5 Allergy status to narcotic agent; Z87.891 Personal history of nicotine dependence; Z79.52 Long term (current) use of systemic steroids; Z79.899 Other long term (current) drug therapy; Z79.82 Long term (current) use of aspirin
CPT/HCPCS: 36415; 71045; 71275; 80048; 80076; 82728; 83605; 83690; 83735; 84145; 84484; 85025; 85610; 85730; 86140; 87040; 93005; 96374; 96375; 99285; G0378; J1100; J1650; J2405; J2550; J2920; J2930; J7040; J7050; J7512; J7606; Q9967

== ENCOUNTER 2021-10-30 06:09 | Day surgery (SDC) | payer OTHER, MEDICARE ==
[2021-10-27 15:06] LABS: Absolute Lymphocytes (CBC) 1.6 K/uL (0.7-4.9); Hematocrit 42.3 % (36.0-45.0); Lymphocytes % 18.5 % (15.3-44.8); MPV 9.4 fL (7.6-11.3); RBC Red Blood Cell Count 4.24 M/uL (3.86-4.86)
[2021-10-27 15:18] LABS: Potassium 3.7 mmol/L (3.5-5.1)
--- NOTE | 2021-10-27 15:50 | RAD REPORT ---
EXAM DESCRIPTION: RAD - Chest Pa And Lat (2 Views) - 10/27/2021 2:57 pm CLINICAL HISTORY: PREOP COMPARISON: Chest Single View dated 10/30/2020; Chest Single View dated 10/28/2020; Chest Pa And Lat (2 Views) dated 08/03/2019; Chest Pa And Lat (2 Views) dated 07/20/2018 FINDINGS: Lines: None. Lungs: No evidence of edema or pneumonia. Pleural: No significant pleural effusions or pneumothorax. Cardiac: The heart size is within normal limits. Bones: No acute fractures. Other: IMPRESSION: No acute cardiopulmonary disease.
[2021-10-27 16:42] LABS: Protime INR 0.9
[2021-10-30] MEDS ORDERED: HEPA 1000U/500MLS 1,000 UNIT/500 ML BAG IV ONE (06:36)
[2021-10-30] MEDS ORDERED: LIDOCAINE 1% 20 ML MDV ONE (06:36)
[2021-10-30] MEDS ORDERED: NA CHLORIDE 0.9% 500 ML ONE (06:48)
[2021-10-30] MEDS ORDERED: MIDAZOLAM HCL 2 MG/2 ML INJ ONE ×2 (07:17→07:34)
[2021-10-30] MEDS ORDERED: FENTANYL CITR 100 MCG/2 ML ONE (07:17)
[2021-10-30] MEDS ORDERED: NA CHLORIDE 0.9% 0 ML ONE (07:19)
[2021-10-30] MEDS ORDERED: ATROPINE SULF 1 MG/10 ML SYR IV ONE (07:19)
--- NOTE | 2021-10-30 08:08 | OP ---
Date of Procedure: 10/30/2021 Surgeon: Salomón George MD Occupational Health Physiotherapist: Chantel Johnson. Procedures: Left heart catheterization with selective coronary arteriogram. Indication: Unstable angina. Ms. Chirinos is 76, came in to the office with classic symptoms of subst ernal chest pressure radiating to both arms without exertion. Does have a history of severe COPD and gastroesophageal reflux disease. Unable to walk on treadmill. I felt more comfortable doing a hear t catheterization on her. Procedure In Detail: She was scheduled as an outpatient for 10/30/2021, came into the clinical lab assistant as an outpatient, prepped and draped in routine sterile fashion. Given Versed for sedation. A 6-Czech s mila introduced in the right common femoral artery using 10 cc of Xylocaine and Seldinger technique. Alejandro catheter left and right were used to cannulate the left main and right main respectively. She was found to have a 20% stenosis in the mid circumflex, normal left main, normal LAD. She had di ffuse plaquing in the distal PDA and posterolateral off the RCA, which was dominant. Ther e were no complications. Blood Loss: 5 cc. Anesthesia: Total conscious sedation was 30 minutes. Postoperative Diagnosis: Mild coronary artery disease. Plan: Plan is for medical therapy. We will probably start statin on her. She was also hypertensive during the procedure. We may have to start her on an CARLOS inhibitor down the road, but I will do ting t as an outpatient. For now, she had an Angio-Seal done in the right groin. She will be in the hospital for 2 hours of bedrest. She will go home today and she will see me in e office in 2 weeks. KEVYN/HONG Voice ID: [id number] Report ID: [id number]
[2021-10-30 08:16] VITALS: TEMP 98
[2021-10-30 09:55] VITALS: BP 128/68; O2SAT 94
== END 2021-10-30 10:00 | disposition home or self-care (01) ==
LOC: CCL 06:09
DX: I25.110 Atherosclerotic heart disease of native coronary artery with unstable angina pectoris (principal); I10 Essential (primary) hypertension; E78.2 Mixed hyperlipidemia; J44.9 Chronic obstructive pulmonary disease, unspecified; K21.9 Gastro-esophageal reflux disease without esophagitis; K50.90 Crohn's disease, unspecified, without complications; Z87.891 Personal history of nicotine dependence; Z88.6 Allergy status to analgesic agent; Z20.822 Contact with and (suspected) exposure to COVID-19
CPT/HCPCS: 85025; 80048; 36415; 85610; 85730; 71046; 93454; U0003; C1893; J2250; J3010; J7040; J1644; J0583

== ENCOUNTER 2022-03-08 09:56 | Day surgery (SDC) | payer OTHER, MEDICARE ==
[2022-03-06 10:25] LABS: Absolute Lymphocytes (CBC) 1.3 K/uL (0.7-4.9); Hematocrit 39.1 % (36.0-45.0); Lymphocytes % 22.7 % (15.3-44.8); MPV 8.9 fL (7.6-11.3); RBC Red Blood Cell Count 3.96 M/uL (3.86-4.86)
[2022-03-06 10:44] LABS: Potassium 3.9 mmol/L (3.5-5.1)
[2022-03-08] MEDS ORDERED: Ringers Lactate 1,000 ML IV ONE (10:04)
[2022-03-08] MEDS ORDERED: LIDOCAINE 1% MPF 5 ML VIAL ONE (10:43)
[2022-03-08] MEDS ORDERED: propofoL 200 MG/20 ML VIAL IV ONE (10:43)
--- NOTE | 2022-03-08 11:06 | ENDO RPT ---
[address], [address] EGD PROCEDURE REPORT EXAM DATE: 03/08/2022 PATIENT NAME: Shwetha Chirinos MR#: [id number] BIRTHDATE: 1945 ATTENDING: Guru Schmid DR STATUS: outpatient ADJUSTER: Lily Savage RN and Ch[facility] INDICATIONS: The patient is a 76 yr old Female here for an EGD due to persistent vomiting PROCEDURE PERFORMED: EGD with biopsy for H. pylori MEDICATIONS: Per Anesthesia. TOPICAL ANESTHETIC: none CONSENT: The patient understands the risks and benefits of the procedure and understands that these risks include, but are not limited to: sedation, allergic reaction, infection, perforation and/or bleeding. Alternative means of evaluation and treatment include, among others: physical exam, x-rays, and/or surgical intervention. The patient elects to proceed with this endoscopic procedure. DESCRIPTION OF PROCEDURE: During intra-op preparation period all mechanical medical equipment was checked for proper function. Hand hygiene and appropriate measures for infection prevention was taken. Procedure, possible complications, and alternatives including but not limited to the possibility of bleeding, perforation, tear, infection, sepsis, need for surgery, need for blood transfusion, and anesthesia related complications were explained to the patient. After the risks, benefits and alternatives of the procedure were thoroughly explained, Informed consent was verified, confirmed and timeout was successfully executed by the treatment team. The patient was placed in the left lateral position. The patient was anesthetized with topical anesthesia. Through the anesthetized oropharyngeal area, the scope was passed without any difficulty. The Pentax EG-[id number] ([id number]) endoscope was introduced through the mouth and advanced to the second portion of the duodenum. Retroflexed views revealed a moderate sized hiatal hernia. The gastroscope was then slowly withdrawn and removed. Bile reflux was found in the gastroesophageal junction. A biopsy for H. pylori was taken. Moderate gastritis was found in the body and the antrum of the stomach. Multiple biopsies were obtained and sent to pathology. A biopsy for H. pylori was taken. A moderate sized hiatal hernia was found ADVERSE EVENTS: There were no complications. IMPRESSIONS: 1. Bile reflux was found in the gastroesophageal junction 2. Moderate gastritis was found in the body and the antrum of the stomach 3. A moderate sized hiatal hernia was found RECOMMENDATIONS: 1. acid suppression therapy 2. anti-reflux regimen 3. await biopsy results 4. follow-up: office 2 week(s) 5. avoid NSAIDS 6. follow-up of helicobacter pylori status, treat if indicated REPEAT EXAM: Guru Schmid DR eSigned: Guru Schmid DR 03/08/2022 11:05 AM cc: CPT CODES: ICD9 CODES: PATIENT NAME: Shwetha Chirinos MR#: [id number]
[2022-03-08 11:44] VITALS: BP 119/67; TEMP 97.9; O2SAT 94
== END 2022-03-08 11:40 | disposition home or self-care (01) ==
LOC: OR 09:56
PROVIDERS: ATTEND Surgery
PROC: 0DB78ZX Excision of Stomach, Pylorus, Via Natural or Artificial Opening Endoscopic, Diagnostic (ICD-10-PCS; 2022-03-08)
PROC: 0DB68ZX Excision of Stomach, Via Natural or Artificial Opening Endoscopic, Diagnostic (ICD-10-PCS; 2022-03-08)
PROC: 0DB98ZX Excision of Duodenum, Via Natural or Artificial Opening Endoscopic, Diagnostic (ICD-10-PCS; principal; 2022-03-08 11:00)
DX: K29.80 Duodenitis without bleeding (principal); K29.50 Unspecified chronic gastritis without bleeding; K44.9 Diaphragmatic hernia without obstruction or gangrene; Z20.822 Contact with and (suspected) exposure to COVID-19
CPT/HCPCS: 85025; 80048; 36415; 88312 ×2; 88305; 43239; U0003; J2704; J7120

== ENCOUNTER 2022-07-18 16:54 | Emergency (ER) | payer OTHER, MEDICARE ==
--- OUTSIDE RECORDS SUMMARY | 2022-07-18 16:58 | XMS REPORT | Continuity of Care Document ---
:1945 Author Organization [facility] t Address [address] [place] [address] [address] [place] [address] Care Team Providers Name Role Phone Umair Ferrera MD, Jony Knight Primary Care Physician [phone] Lonnie Gonzales Attending Clinician Unavailable Reed Almendarez MD Attending Clinician REED ALMENDAREZ Attending Clinician Unavailable REED ALMENDARZE Attending Clinician Unavailable Richa VAZ, Tremaine Erickson Attending Clinician Ariana Perez MD Attending Clinician Radha Arenas MA Attending Clinician Unavailable Ismael Lomeli MD Attending Clinician Moriah Celestin MA Attending Clinician Unavailable Virginia El Attending Clinician Tejal Vital MD Attending Clinician [phone] Payers Payer Name Policy Type Policy Number Effective Date Expiration Date S ource Problems Condition Condition Condition Status Onset Resolution Last Treating Co mments Source Name Details Category Date Date Treatment Clinician Date Arthritis Arthritis Disease Active Overview: Univers Formattin ity of g of this [place] note Medical might be Branch different from the original. mainly in hands/fin gers COPD COPD Disease Active Univers (chronic (chronic [place]y of obstruct[place] obstructiv [place] Medical pulmonary pulmonary Bran ch disease) disease) Crohn Crohn Disease Active Univers disease disease ity of [place] [facility] [place] GERD GERD Disease Active Univers (gastroeso (gastroeso it y of phageal phageal [place] reflux reflux Medical disease) disease) Branch Allergies, Adverse Reactions, Alerts Allergy Allergy Status Severity Reaction(s) Onset Inactive Treating Comm ents Source Name Type Date Date Clinician Nitrofur Propensi Active Other - See Severe U nivers antoin ty to comments 05-17 leg/hip ity of Monohyd/ adverse 00:00: pain [place] M-Cryst reaction 00 Medical s Branch NITROFUR DRUG Active Other-Cmnt Univ ers ANTOIN 05-17 ity of MONOHYD/ 00:00: [place] M-CRYST 00 Medical Branch Codeine Propensi Active Other - See Makes her Univers ty to comments 02-09 feel ity of adverse 00:00: spacey/go [place] reaction 00 ofy Medical s Branch CODEINE DRUG Active Other-Cmnt Unive rs INGREDI 02-09 ity of 00:00: [place] 00 Medical Branch Codeine Propensi Active Other (See Makes her Methodi ty to Comments) - feel st adverse 00:00: spacey/go Hospit a reaction 00 ofy l s to drug codeine Adverse Active Info Not Common Reaction Available [facility] Social History Social Habit Start Date Stop Date Quantity Comments Source History of tobacco Current smoker [facility] Exposure to 2022-07-08 2022-07-18 Not sure University of SARS-CoV-2 (event) 00:00:00 10:52:00 [facility] Cigarettes smoked 2021-10-25 2021-10-[address] current (pack per 00:00:00 00:00:00 Hospita l day) - Reported Cigarette 2021-10-25 2021-10-25 [facility] 00:[facility]00 00:00:00 Hospital Tobacco use and 2021-10-25 2021-10-25 Smokeless [facility] exposure 00:00:00 00:00:00 tobacco non-user Hospital Alcohol intake 2021-10-25 2021-10-25 Current [facility] 00:00:00 00:00:00 non-drinker of Hospital alcohol (finding) Alcohol Comment 2020-05-23 2020-05-23 seldom Universit y of 00:00:00 00:00:00 [place] [facility] History [facility] 2020-05-23 2020-05-23 99 Mercedes o f Alcohol Frequency 00:00:00 00:00:00 [facility] [place] edical Branch History SD[facility] 2020-05-23 2020-05-23 99 University o f Alcohol Std Drinks 00:00:00 00:00:00 [place] [facility] History [facility] 2020-05-23 2020-05-23 99 Mercedes o f Alcohol Binge 00:00:00 00:00:00 [facility] al Branch Sex [birth year] At [birth year] Universit y of 00:00:00 00:00:00 [facility] Smoking Status Start Date Stop Date Source Ex-smoker 2021-10-25 00:00:00 2021-10-25 00:00:00 [facility] Medications Ordered Filled Start Stop Current Ordering Indication Dosage Frequency Signature Comments Components Source Medication Medication Date Date Medication? Clinician (SIG) Name Name rivastigmin Yes [id number] 1{patch Apply 1 Univers e 4.6 mg/24 909 } Patch to [place] of [place] morning. Branch rivastigmin Yes [id number] 1{patch Apply 1 Univers e 9.5 mg/24 06-29 } Patch to [place]y of hour patch 00:[place] morning. Branch Use this script when the rivastigmi ne 4.6 mg patch is used up. rivastigmin Yes [id number] 1{patch Apply 1 Univers e 4.6 mg/24 909 } Patch to [place]y of [place] patch [place] the [place] morning. Branch rivastigmin Yes [id number] 1{patch Apply 1 Univers e 9.5 mg/24 09 } Patch to [place]y of hour patch 00:[place] the [place] morning. Branch Use this script when the rivastigmi ne 4.6 mg patch is used up. rivastigmin Yes [id number] 1{patch Apply 1 Univers e 4.6 mg/24 9 } Patch to ity of hour patch 00:[place] the [place] morning. Branch rivastigmin Yes [id number] 1{patch Apply 1 Univers e 9.5 mg/24 06-29 } Patch to ity of hour patch 00:[place] the [place] morning. Branch Use this script when the rivastigmi ne 4.6 mg patch is used up. rivastigmin Yes [id number] 1{patch Apply 1 Univers e 4.6 mg/24 06-29 } Patch to ity of hour patch 00:00[place] the [place] morning. Branch rivastigmin Yes [id number] 1{patch Apply 1 Univers e 9.5 mg/24 06-29 } Patch to ity of hour patch [place] the [place] morning. Branch Use this script when the rivastigmi ne 4.6 mg patch is used up. rivastigmin 2021- No 1{patch Apply 1 Univers e 4.6 mg/24 05-25 } Patch to ity of hour patch 00:00: 00:00 skin in [place] 00 :00 the Medical morning. Branch cyclobenzap Yes cyclobenza Univers rine 10 mg 2-28 shanell 10 ity o f tablet 10:51: mg tablet 24 Take 1 Medical tablet 3 Branch times a day by oral route as directed for 10 days. diazePAM 2 Yes diazepam 2 U nivers mg tablet 2-28 mg tablet ity o f 10:51: [address] [place] [address] cyclobenzap Yes cyclobenza Univers rine 10 mg 2-28 shanell 10 ity o f tablet 10:51: mg tablet 24 Take 1 Medical tablet 3 Branch times a day by oral route as directed for 10 days. diazePAM 2 2021- Yes diazepam 2 U nivers mg tablet 2-28 mg tablet ity o f 10:51: 24 [facility] cyclobenzap Yes cyclobenza Univers rine 10 mg 2-28 shanell 10 ity o f tablet 10:51: mg tablet 24 Take 1 Medical tablet 3 Branch times a day by oral route as directed for 10 days. diazePAM 2 Yes diazepam 2 U nivers mg tablet 2-28 mg tablet ity o f 10:51: [place] 24 Medical Branch cyclobenzap Yes cyclobenza Univers rine 10 mg 2-28 shanell 10 ity o f tablet 10:51: mg tablet [place] 24 Take 1 Medical tablet 3 Branch times a day by oral route as directed for 10 days. diazePAM 2 Yes diazepam 2 U nivers mg tablet 2-28 mg tablet ity o f 10:51: [place] 24 Medical Branch donepeziL 5 2021- No [id number] 5mg Take 1 Univers mg tablet 2-28 -09 tablet by ity of 00:00: 00:00 mouth at [place] 00 :00 bedtime. Medical When Branch script runs out, call in for another increase. clotrimazol Yes DISSOLVE 1 Univers e 10 mg 2-09 LOZENGE BY ity of caridad 00:00: MOUTH FIVE [place] 00 TIMES A Medical DAY FOR 10 Branch TO 14 DAYS clotrimazol Yes DISSOLVE 1 Univers e 10 mg 2-09 LOZENGE BY ity of caridad 00:00: MOUTH FIVE [place] 00 TIMES A Medical DAY FOR 10 Branch TO 14 DAYS clotrimazol Yes DISSOLVE 1 Univers e 10 mg 2-09 LOZENGE BY ity of caridad 00:00: MOUTH FIVE [place] 00 TIMES A Medical DAY FOR 10 Branch TO 14 DAYS clotrimazol Yes DISSOLVE 1 Univers e 10 mg 2-09 LOZENGE BY ity of caridad 00:00: MOUTH FIVE [place] 00 TIMES A Medical DAY FOR 10 Branch TO 14 DAYS meloxicam 2020-10- No 7.5mg QD Take 1 Meth do (Mobic) 7.5 2-29 03-[address] mg tablet 00:00: 04:59 (7.5 mg Hosp alice 00 :00 total) by l mouth daily for 90 days. meloxicam 2020-10- No 7.5mg QD Take 1 Meth do (Mobic) 7.5 2-29 03-[address] mg tablet 00:00: 04:59 (7.5 mg Hosp alice 00 :00 total) by l mouth daily for 90 days. meloxicam 2020-10 Yes 15mg Take 15 mg Un oren 15 mg 2-28 by mouth ity of tablet 00:00: daily. [address] meloxicam 2020-10 Yes 15mg Take 15 mg Un oren 15 mg 2-28 by mouth ity of tablet 00:00: daily. [address] meloxicam 2020-10 Yes 15mg Take 15 mg Un oren 15 mg 2-28 by mouth ity of tablet 00:00: daily. [address] meloxicam 2020-10 Yes 15mg Take 15 mg Un oren 15 mg 2-28 by mouth ity of tablet 00:00: daily. [address] solifenacin 2020-10- No [facility] M ethodi (VESICARE) 11-[address] 10 MG 10:46: 00:00 tablet Hospita tablet 34 :00 l solifenacin 2020-10- No [facility] M ethodi (VESICARE) 11-[address] 10 MG 10:46: 00:00 tablet Hospita tablet 34 :00 l mirabegron 2020-10- No Myrbetriq M ethodi (MYRBETRIQ) 11-[address] 50 mg 10:46: 00:00 tablet,ext Hospi ta tablet 31 :00 ended l extended release release 24 hr mirabegron 2020-10- No Myrbetriq M ethodi (MYRBETRIQ) 11-[address] 50 mg 10:46: 00:00 tablet,ext Hospi ta tablet 31 :00 ended l extended release release 24 hr omeprazole 2020-10 Yes 40mg QD Take 40 mg M ethodi (PriLOSEC) 2- by mouth st 40 MG 10:46: daily. Hospita capsule 02 l omeprazole 2020-10 Yes 40mg QD Take 40 mg M ethodi (PriLOSEC) 2- by mouth st 40 MG 10:46: daily. Hospita capsule 02 l cyclobenzap 2020-10- No cyclobenza Methodi rine 11-[address] (FLEXERIL) 10:45: 00:00 mg tablet H ospita 10 mg 14 :00 Take 1 l tablet tablet 3 times a day by oral route as directed for 10 days. cyclobenzap 2020-10- No cyclobenza Methodi rine 2- 12- shanell 10 st (FLEXERIL) 10:45: 00:00 mg tablet H ospita 10 mg 14 :00 Take 1 l tablet tablet 3 times a day by oral route as directed for 10 days. IPRATROPIUM 2020-10 Yes [id number] INHALE 1 Univers 0.02 % 1-13 VIAL(2.5 ity of nebulizer 00:00: ML) VIA [place] solution 00 NEBULIZER Medica l TWICE Branch DAILY NEEDED FOR WHEEZING OR SHORTNESS OF BREATH IPRATROPIUM 2020-10 Yes [id number] INHALE 1 Univers 0.02 % 1-13 VIAL(2.5 ity of nebulizer 00:00: ML) VIA [place] solution 00 NEBULIZER Medica l TWICE Branch DAILY NEEDED FOR WHEEZING OR SHORTNESS OF BREATH IPRATROPIUM 2020-10 Yes [id number] INHALE 1 Univers 0.02 % 1-13 VIAL(2.5 ity of nebulizer 00:00: ML) VIA [place] solution 00 NEBULIZER Medica l TWICE Branch DAILY NEEDED FOR WHEEZING OR SHORTNESS OF BREATH IPRATROPIUM 2020-10 Yes [id number] INHALE 1 Univers 0.02 % 1-13 VIAL(2.5 ity of nebulizer 00:00: ML) VIA [place] solution 00 NEBULIZER Medica l TWICE Branch DAILY NEEDED FOR WHEEZING OR SHORTNESS OF BREATH ascorbic Yes 500mg Take 500 Univ ers acid, 3-03 mg by ity of vitamin C, 15:51: mouth. [place] (VITAMIN C) 53 Medical 500 mg Branch tablet vitamin Yes 250ug Take 250 Unive rs B-12 3-03 mcg by ity of (VITAMIN 15:51: mouth [place] B-12) 250 53 daily. Medical mcg tablet Branch zinc Yes Take by Univers sulfate 3-03 mouth. ity of (ZINC-15 15:51: [place] ORAL) 53 Medical Branch ascorbic 0 Yes 500mg Take 500 Univ ers acid, 3-03 mg by ity of vitamin C, 15:51: mouth. [place] (VITAMIN C) 53 Medical 500 mg Branch tablet vitamin 0 Yes 250ug Take 250 Unive rs B-12 3-03 mcg by ity of (VITAMIN 15:51: mouth [place] B-12) 250 53 daily. Medical mcg tablet Branch zinc 0 Yes Take by Univers sulfate 3-03 mouth. ity of (ZINC-15 15:51: [place] ORAL) 53 Medical Branch ascorbic 0 Yes 500mg Take 500 Univ ers acid, 3-03 mg by ity of vitamin C, 15:51: mouth. [place] (VITAMIN C) 53 Medical 500 mg Branch tablet vitamin Yes 250ug Take 250 Unive rs B-12 3-03 mcg by ity of (VITAMIN 15:51: mouth [place] B-12) 250 53 daily. Medical mcg tablet Branch zinc Yes Take by Univers sulfate 3-03 mouth. ity of (ZINC-15 15:51: [place] ORAL) 53 Medical Branch ascorbic Yes 500mg Take 500 Univ ers acid, 3-03 mg by ity of vitamin C, 15:51: mouth. [place] (VITAMIN C) 53 Medical 500 mg Branch tablet vitamin Yes 250ug Take 250 Unive rs B-12 3-03 mcg by ity of (VITAMIN 15:51: mouth [place] B-12) 250 53 daily. Medical mcg tablet Branch zinc Yes Take by Univers sulfate 3-03 mouth. ity of (ZINC-15 15:51: [place] ORAL) 53 Medical Branch omeprazole Yes 40mg Take 40 mg U nivers 40 mg 3-03 by mouth ity of capsule 15:25: daily. Medical Branch predniSONE Yes 10mg Take 10 mg U nivers 10 mg 3-03 by mouth ity of tablet 15:25: as needed [place] (wheezing) Medical . Branch tiotropium Yes 18ug Inhale 18 Un oren 18 mcg 3-03 mcg daily. ity of inhalation 15:25: Medical Branch omeprazole Yes 40mg Take 40 mg U nivers 40 mg 3-03 by mouth ity of capsule 15:25: daily. Medical Branch predniSONE Yes 10mg Take 10 mg U nivers 10 mg 3-03 by mouth ity of tablet 15:25: as needed [place] (wheezing) Medical . Branch tiotropium Yes 18ug Inhale 18 Un oren 18 mcg 3-03 mcg daily. ity of inhalation 15:25: [place] [facility] omeprazole Yes 40mg Take 40 mg U nivers 40 mg 3-03 by mouth ity of capsule 15:25: daily. [place] [facility] predniSONE Yes 10mg Take 10 mg U nivers 10 mg 3-03 by mouth ity of tablet 15:25: as needed [place] (wheezing) Medical . Branch tiotropium Yes 18ug Inhale 18 Un oren 18 mcg 3-03 mcg daily. ity of inhalation 15:25: [place] [facility] omeprazole Yes 40mg Take 40 mg U nivers 40 mg 3-03 by mouth ity of capsule 15:25: daily. [place] [address] Medical Branch predniSONE Yes 10mg Take 10 mg U nivers 10 mg 3-03 by mouth ity of tablet 15:25: as needed [place] (wheezing) Medical . Branch tiotropium Yes 18ug Inhale 18 Un oren 18 mcg 3-03 mcg daily. ity of inhalation 15:25: [place] [facility] Branch ergocalcife 2020-0 Yes [id number] Take 1 Univers rol, 8-17 capsule by ity of vitamin d2, 00:00: mouth [place] (VITAMIN 00 weekly. Medical D2) 1,250 Branch mcg (50,000 unit) capsule ergocalcife 2020-0 Yes [id number] Take 1 Univers rol, 8-17 capsule by ity of vitamin d2, 00:00: mouth [place] (VITAMIN 00 weekly. Medical D2) 1,250 Branch mcg (50,000 unit) capsule ergocalcife 2020-0 Yes [id number] Take 1 Univers rol, 8-17 capsule by ity of vitamin d2, 00:00: mouth [place] (VITAMIN 00 weekly. Medical D2) 1,250 Branch mcg (50,000 unit) capsule ergocalcife 2020-0 Yes [id number] Take 1 Univers rol, 8-17 capsule by ity of vitamin d2, 00:00: mouth [place] (VITAMIN 00 weekly. Medical D2) 1,250 Branch mcg (50,000 unit) capsule Omeprazole Omeprazole Yes Guru 1 capsule Common 8-16 [facility] 00:00: - [facility] 00 [facility] rosuvastati 2019-0 Yes Crestor 40 Methodi n (CRESTOR) 2-[address] 40 MG 16:34: Hospita tablet 22 l albuterol 0 Yes ProAir HFA Me thodi (PROAIR 2-[address] HFA,PROVENT 16:34: mcg/actuat Hospita [place] 22 ion l HFA,VENTOLI aerosol N HFA) 90 inhaler mcg/actuati on inhaler rosuvastati Yes Crestor 40 Methodi n (CRESTOR) 2-[address] 40 MG 16:34: Hospita tablet 22 l albuterol 2019-0 Yes ProAir HFA Me thodi (PROAIR 2-[address] HFA,PROVENT 16:34: mcg/actuat Hospita [place] 22 ion l HFA,VENTOLI aerosol N HFA) 90 inhaler mcg/actuati on inhaler Rosuvastati Rosuvastati Yes Guru 1 tablet Common n Calcium n Calcium [facility] PredniSONE PredniSONE Yes Guru 1 tablet Common [facility] Immunizations Ordered Filled Immunization Date Status Comments [facility] e Immunization Name Name Influenza Virus 2022-07-18 Completed Universit y of Vaccine,quad 00:00:00 [place] Medica l Im,preserve Free Branch 65+ Influenza Virus 2022-07-18 Completed Universit y of Vaccine,quad 00:00:00 [place] Medica l Im,preserve Free Branch 65+ Pneumococcal 2020-08-26 Completed University o f Polysaccharide, 00:00:00 [place] Med ical PPSV23 (PNEUMOVAX) Branch Pneumococcal 2020-08-26 Completed University o f Polysaccharide, 00:00:00 [place] Med ical PPSV23 (PNEUMOVAX) Branch Pneumococcal 2020-08-26 Completed University o f Polysaccharide, 00:00:00 [place] Med ical PPSV23 (PNEUMOVAX) Branch Pneumococcal 2020-08-26 Completed University o f Polysaccharide, 00:00:00 [place] Med ical PPSV23 (PNEUMOVAX) Branch Influenza High Dose 2020-06-26 Completed Unive rsity of 00:00:00 [facility] Influenza High Dose 2020-06-26 Completed Unive rsity of 00:00:00 [facility] Influenza High Dose 2020-06-26 Completed Unive rsity of 00:00:00 [facility] Influenza High Dose 2020-06-26 Completed Unive rsity of 00:00:00 [facility] Branch Influenza High Dose 2019-06-26 Completed Unive rsity of 00:00:00 [place] [facility] Influenza High Dose 2019-06-26 Completed Unive rsity of 00:00:00 [place] [facility] Influenza High Dose 2019-06-26 Completed Unive rsity of 00:00:00 [facility] Branch Influenza High Dose 2019-06-26 Completed Unive rsity of 00:00:00 [facility] Branch Influenza High Dose 2018-06-26 Completed Unive rsity of 00:00:00 [place] [facility] Influenza High Dose 2018-06-26 Completed Unive rsity of 00:00:00 [place] [facility] Influenza High Dose 2018-06-26 Completed Unive rsity of 00:00:00 [facility] Branch Influenza High Dose 2018-06-26 Completed Unive rsity of 00:00:00 [facility] Vital Signs Vital Name Observation Time Observation Value Comments Source Systolic blood 2022-07-18 16:08:00 133 mm[Hg] Univer sity of pressure [facility] Diastolic blood 2022-07-18 16:08:00 81 mm[Hg] Unive rsity of pressure [facility] Heart rate 2022-07-18 16:08:00 72 /min Universi ty [facility] Respiratory rate 2022-07-18 16:08:00 19 /min Univ ersity of [facility] Body height 2022-07-18 16:08:00 [facility] [place] [facility] Body weight 2022-07-18 16:08:00 59.829 kg [place] [facility] BMI 2022-07-18 16:08:00 21.95 kg/m2 [facility] ty [facility] Oxygen saturation in 2022-07-18 16:08:00 98 /min University Arterial blood by [facility] [place] [facility] Pulse oximetry Branch Systolic blood 2022-06-29 19:34:00 134 mm[Hg] Univer sity of pressure [facility] Diastolic blood 2022-06-29 19:34:00 76 mm[Hg] Unive rsity of pressure [facility] Heart rate 2022-06-29 19:34:00 72 /min Universi ty of [facility] Body height 2022-06-29 19:34:00 165.1 cm [facility] Body weight 2022-06-29 19:34:00 60.782 kg [facility] BMI 2022-06-29 19:34:00 22.30 kg/m2 [facility] Oxygen saturation in 2022-06-29 19:34:00 96 /min [facility] Arterial blood by [facility] [place] [facility] Pulse oximetry Branch Body height 2021-10-25 17:49:00 165.1 cm [facility] Body weight 2021-10-25 17:49:00 61.236 [facility] BMI 2021-10-25 17:49:00 22.47 kg/m2 [facility] Procedures Procedure Date / Time Performing Clinician Source Performed FLU 2022-07-18 16:06:31 Reed Almendarez [facility] VACC(),65+YR,0.5 Medica l Branch ML,IM,ADJUVANTED,QUAD(FLU AD) XR SHOULDER 2+ VW RIGHT 2021-10-25 17:49:05 Ariana Perez [facility] RI ARTHROCENTESIS 2021-10-25 17:00:00 [facility]ana [facility] ASPIR&/INJ MAJOR JT/BURSA W/O US MRI LUMBAR SPINE WO 2021-10-06 18:10:[address] [facility] CONTRAST MRI THORACIC SPINE WO 2021-10-06 17:55:34 Ismael Lomeli [facility] CONTRAST Plan of Care Planned Activity Planned Date Details Comments Source Future Scheduled 2022-06-20 HEPATITIS B VACCINES [facility] Test 22:23:42 (1 of 3 - 3-dose series) [code = HEPATITIS B VACCINES (1 of 3 - 3-dose series)] Future Scheduled 2022-06-20 COVID-19 VACCINE (#1) [facility] Test 22:23:42 [code = COVID-19 VACCINE (#1)] Future Scheduled 2022-06-20 Hepatitis C screening [facility] Test 22:23:42 (procedure) [code = [id number]] Future Scheduled 2022-06-20 BREAST CANCER [facility] Test 22:23:42 SCREENING [code = BREAST CANCER SCREENING] Future Scheduled 2022-06-20 COLONOSCOPY SCREENING [facility] Test 22:23:42 [code = COLONOSCOPY SCREENING] Future Scheduled 2022-06-20 SHINGLES VACCINES (1 Met [facility] Test 22:23:42 of 2) [code = SHINGLES VACCINES (1 of 2)] Future Scheduled 2022-06-20 65+ PNEUMOCOCCAL [facility] Test 22:23:42 VACCINE (2 - PCV) [code = 65+ PNEUMOCOCCAL VACCINE (2 - PCV)] Future Scheduled 2022-06-20 INFLUENZA VACCINE [facility] Test 22:23:42 [code = INFLUENZA VACCINE] Future Scheduled 2021-11-21 COVID-19 VACCINE (1) [facility] Test 15:45:20 [code = COVID-19 VACCINE (1)] Future Scheduled 2021-11-21 Hepatitis C screening [facility] Test 15:45:20 (procedure) [code = [id number]] Future Scheduled 2021-11-21 BREAST CANCER [facility] Test 15:45:20 SCREENING [code = BREAST CANCER SCREENING] Future Scheduled 2021-11-21 COLONOSCOPY SCREENING [facility] Test 15:45:20 [code = COLONOSCOPY SCREENING] Future Scheduled 2021-11-21 SHINGLES VACCINES (#1) [facility] Test 15:45:20 [code = SHINGLES VACCINES (#1)] Future Scheduled 2021-11-[address] [facility] Test 15:45:20 [code = INFLUENZA VACCINE] Encounters Start End Encounter Admission Attending Care Care Encounter Source Date/Time Date/Time Type Type Clinicians Facility Department ID 2021-11-15 Outpatient Gonzales, [facility] [id number] Common 14:33:19 [facility] 2021-11-15 Outpatient Gonzales, [facility] [id number] Common 13:32:47 Lonnie [facility] 2021-11-15 Outpatient Gonzales, [facility] [id number] Common 13:31:54 Lonnie [facility] 2021-11-15 Outpatient Gonzales, [facility] [id number] Common 13:31:14 [facility] 2021-11-15 Outpatient STLMLC ST[facility]MLC [id number] Common 13:17:33 [id number] [facility] 2022-07-18 2022-07-18 [id number] Univers 11:00:00 11:20:00 Visit Randolphbethany Mita [place] [id number] ity [place] [id number] PROFESS[place] [id number] [address] 2022-07-18 2022-07-18 Outpatient R REED ALMENDAREZ [facility] [id number] Univers 11:00:00 11:00:00 [facility] 2022-06-29 [facility] [id number] Univers 14:40:00 15:17:28 Visit [facility] [id number] ity of [place] [id number] Viraj as TIFFANIE?BLEA [id number] [address] OFFICE [facility] 2022-06-29 2022-06-29 Refill Richa, [facility] [id number] Univers 00:00:00 00:00:00 [facility] [id number] ity of [place] [id number] Viraj as TIFFANIE?BLEA [id number] [address] OFFICE [facility] 2022-06-20 2022-06-20 ambulatory STLMLC STLMLC [id number] Common 00:00:00 00:00:00 [facility] 2022-06-05 2022-06-05 ambulatory STLMLC STLMLC [id number] Common 00:00:00 00:00:00 [facility] 2022-06-05 2022-06-05 ambulatory STLMLC STLMLC [id number] Common 00:00:00 00:00:00 [facility] 2022-06-04 2022-06-04 ambulatory STLMLC STLMLC [id number] Common 00:00:00 00:00:00 [facility] 2022-06-04 2022-06-04 ambulatory STLMLC STLMLC [id number] Common 00:00:00 00:00:00 [facility] 2022-05-16 2022-05-16 ambulatory STLMLC STLMLC [id number] Common 00:00:00 00:00:00 [facility] 2022-05-16 2022-05-16 ambulatory STLMLC STLMLC [id number] Common 00:00:00 00:00:00 [facility] 2022-04-13 2022-04-13 ambulatory STLMLC STLMLC [id number] Common 00:00:00 00:00:00 [facility] 2022-02-27 2022-02-27 ambulatory STLMLC STLMLC [id number] Common 00:00:00 00:00:00 [facility] 2022-02-14 2022-02-14 ambulatory STLMLC STLMLC [id number] Common 00:00:00 00:00:00 [facility] 2021-10-25 2021-10-25 Office Chris, 1.2.840.1 [id number] Methodi 11:20:56 12:33:49 Visit Ariana Luna 31231.1.[address] 3.430.2.7 Hospit a .3.231379 l .8 2021-10-25 2021-10-25 Office Chris, 1.2.840.1 [id number] 7958 Methodi 11:00:00 12:33:49 Visit Ariana Luna 07032.1.[address] 3.430.2.7 Hospit a .3.281787 l .8 2021-10-25 2021-10-25 [facility] [id number] [address] 00:00:00 00:00:00 ARIANA [address] 2021-10-24 2021-10-24 Orders Dagoberto, 1.2.840.1 [id number] Methodi 00:00:00 00:00:00 Only Radha 12538.1.[address] 3.430.2.7 Hospit a .3.523283 l .8 2021-10-24 2021-10-24 Orders Dagoberto, 1.2.840.1 [id number] [id number] Methodi 00:00:00 00:00:00 Only Radha 31797.1.[address] 3.430.2.7 Hospit a .3.259944 l .8 2021-10-18 2021-10-18 Telephone Bussey, 1.2.840.1 [id number] Methodi 10:00:00 10:15:00 Consult Ismael Ayala 61677.1.1 043 s t 3.430.2.7 Hospit a .3.753417 l .8 2021-10-18 2021-10-18 Telephone Armani, 1.2.840.1 [id number] [id number] Methodi 09:44:19 09:59:19 Consult Ismael Ayala 87951.1.1 043 s t 3.430.2.7 Hospit a .3.517203 l .8 2021-10-12 2021-10-12 Orders Fawad, 1.2.840.1 [id number] 2527 Methodi 00:00:00 00:00:00 Only Moriah 32043.1.[address] 3.430.2.7 Hospit a .3.097887 l .8 2021-10-12 2021-10-12 Orders Fawad, 1.2.840.1 [id number] 6574 Methodi 00:00:00 00:00:00 Only Moriah 42591.1.[address] 3.430.2.7 Hospit a .3.789915 l .8 2021-10-11 2021-10-11 Travel 1.2.840.1 1.2.273.398 5619 [id number] Methodi 00:00:00 00:00:[address] 3.430.2.7 0.2.7.3.698 Ho spita .3.978445 084.8 l .8 2021-10-11 2021-10-11 Travel 1.2.840.1 1.2.634.054 1295 [id number] Methodi 00:00:00 00:00:[address] 3.430.2.7 0.2.7.3.698 Ho spita .3.091338 084.8 l .8 2021-10-06 2021-10-06 Travel 1.2.840.1 1.2.701.211 4219 649011 Methodi 00:00:00 00:00:[address] 3.430.2.7 0.2.7.3.698 Ho spita .3.516225 084.8 l .8 2021-10-06 2021-10-06 Travel 1.2.840.1 1.2.876.180 9075 643666 Methodi 00:00:00 00:00:[address] 3.430.2.7 0.2.7.3.698 Ho spita .3.178714 084.8 l .8 2021-10-06 2021-10-06 Outpatient [facility] [id number] 00:00:00 00:00:00 ISMAEL [address] 2021-10-06 2021-10-06 Outpatient [facility] [id number] [address] 00:00:00 00:00:00 ISMAEL [address] 2021-10-02 2021-10-02 Orders Fawad, 1.2.840.1 [id number] Methodi 00:00:00 00:00:00 Only Moriah 06466.1.[address] 3.430.2.7 Hospit a .3.819634 l .8 2021-10-02 2021-10-02 Orders Fawad, 1.2.840.1 [id number] 9563 Methodi 00:00:00 00:00:00 Only Moriah 37168.1.[address] 3.430.2.7 Hospit a .3.895358 l .8 2021-09-28 2021-09-28 Office Bussey, 1.2.840.1 [id number] 4440 Methodi 10:38:13 10:56:04 Visit Ismael Ayala 93732.1.1 503 s t 3.430.2.7 Hospit a .3.935277 l .8 2021-09-28 2021-09-28 Office Armani, 1.2.840.1 [id number] 4500 Methodi 10:30:00 10:56:04 Visit Ismael Ayala 26246.1.1 503 s t 3.430.2.7 Hospit a .3.154299 l .8 2021-09-06 2021-09-06 Travel 1.2.840.1 1.2.587.715 5252 [id number] Methodi 00:00:00 00:00:[address] 3.430.2.7 0.2.7.3.698 Ho spita .3.888555 084.8 l .8 2021-09-06 2021-09-06 Travel 1.2.840.1 1.2.938.301 5879 [id number] Methodi 00:00:00 00:00:[address] 3.430.2.7 0.2.7.3.698 Ho spita .3.530936 084.8 l .8 2021-08-04 2021-08-04 Outpatient [facility] [id number] Common 00:00:00 00:00:00 [facility] 2021-05-18 2021-05-18 Outpatient [facility] [id number] Common 00:00:00 00:00:00 [facility] 2020-10-26 2020-10-26 Urgent Gino [facility] 1.2.840.114 [id number] 19:10:20 19:41:18 350.1.13.10 [place] 4.2.7.2.686 Professio [id number] nal [address] 2020-09-20 2020-09-20 Telephone Zahraa PAJONAH 1.2.840.114 [id number] 00:00:00 00:00:00 Tejal Knight 350.1.13.10 [place] 4.2.7.2.686 Professio [id number] [address] 2020-08-26 2020-08-26 Office Zahraa [facility] 1.2.840.114 [id number] 10:00:41 11:52:04 Visit Tejal Carvalho [place] 350.1.13.10 [place] 4.2.7.2.686 Professio [id number] [address] 2019-06-17 2019-06-17 Outpatient Bere Duque [id number] Common 08:45:00 08:45:00 t Specialty/U Sp ilia Specialty rology - [facility] 2019-06-05 2019-06-05 Outpatient Bere Duque 27 [id number] Common 10:44:00 10:44:00 t Specialty/U Sp ilia Specialty rology - [facility] 2019-05-26 2019-05-26 Outpatient Bere Duque 26 [id number] Common 13:30:00 13:30:00 t Specialty/U Sp ilia Specialty rology - [facility] Results This patient has no known results.
[2022-07-18] MEDS ORDERED: CYCLOBENZAPRINE 10 MG TAB ONE (17:13)
--- NOTE | 2022-07-18 17:54 | RAD REPORT ---
EXAM DESCRIPTION: RAD - Lumbar Spine 3 Views - 07/18/2022 5:45 pm CLINICAL HISTORY: Back pain FINDINGS: Mild to moderate rotoscoliosis involves the thoracolumbar spine. Moderate compression deformity T11 vertebral body probably old. Mild compression deformity L2 vertebral body indeterminate age. However, it has more of appearance of being chronic than Bones are osteoporotic. Slight anterior subluxation of L5 on S1
--- NOTE | 2022-07-18 17:54 | RAD REPORT ---
EXAM DESCRIPTION: RADSacrum And Coccyx07/18/2022 5:45 pm CLINICAL HISTORY: Back pain status post fall FINDINGS: No fracture is seen Bones are osteoporotic
--- NOTE | 2022-07-18 18:03 | EDPHYS ---
[facility] Name: Shwetha Chirinos Age: 76 yrs Sex: Female : 1945 Arrival Date: 07/18/2022 Time: 16:58 Bed 9 Private MD: ED Physician Nasir Martinez HPI: 07/18 18:00 This 76 yrs old Female presents to ER via Ambulatory with complaints of Back jl9 Pain. Patient reports tripping and falling onto buttocks area last week. . 18:00 The patient presents with pain that is acute. The symptoms are located in the low back. jl9 Onset: The symptoms/episode began/occurred 1 week(s) ago. The pain does not radiate. Associated signs and symptoms: The patient has no apparent associated signs or symptoms. The problem was sustained during a fall. Modifying factors: The patient symptoms are alleviated by remaining still, the patient symptoms are aggravated by any movement. Severity of symptoms: in the emergency department the symptoms a " 3" out of "10". Historical: - Allergies: 17:05 Codeine; bm7 - Home Meds: 17:05 rivastigmine tartrate 1.5 mg oral cap 1 cap 2 times per day [Active]; bm7 - PMHx: 17:05 COPD; Hypertension; bm7 - PSHx: 17:05 Cholecystectomy; Hysterectomy; bm7 - Immunization history:: Adult Immunizations up to date, Client reports receiving the 2nd dose of the Covid vaccine, Client reports receiving the 1st dose of the Covid vaccine. - Social history:: Smoking status: Patient denies any tobacco usage or history of. ROS: 18:00 Constitutional: Negative for fever, chills, and weight loss, Eyes: Negative for injury, jl9 pain, redness, and discharge, ENT: Negative for injury, pain, and discharge, Neck: Negative for injury, pain, and swelling, Cardiovascular: Negative for chest pain, palpitations, and edema, Respiratory: Negative for shortness of breath, cough, wheezing, and pleuritic chest pain, Abdomen/GI: Negative for abdominal pain, nausea, vomiting, diarrhea, and constipation. 18:00 : Negative for injury, bleeding, discharge, and swelling, MS/Extremity: Negative for injury and deformity, Skin: Negative for injury, rash, and discoloration, Neuro: Negative for headache, weakness, numbness, tingling, and seizure, Psych: Negative for depression, anxiety, suicide ideation, homicidal ideation, and hallucinations, Allergy/Immunology: Negative for hives, rash, and allergies, Endocrine: Negative for neck swelling, polydipsia, polyuria, polyphagia, and marked weight changes, Hematologic/Lymphatic: Negative for swollen nodes, abnormal bleeding, and unusual bruising. 18:00 Back: Positive for pain with movement, of the lumbar area, left low back and right low back. Exam: 18:01 Constitutional: This is a well developed, well nourished patient who is awake, alert, jl9 and in no acute distress. Head/Face: Normocephalic, atraumatic. Eyes: Pupils equal round and reactive to light, extra-ocular motions intact. Lids and lashes normal. Conjunctiva and sclera are non-icteric and not injected. Cornea within normal limits. Periorbital areas with no swelling, redness, or edema. ENT: Mucous membranes moist. Neck: Trachea midline, no thyromegaly or masses palpated, and no cervical lymphadenopathy. Supple, full range of motion without nuchal rigidity, or vertebral point tenderness. No Meningismus. Chest/axilla: Normal chest wall appearance and motion. Nontender with no deformity. No lesions are appreciated. Cardiovascular: Regular rate and rhythm with a normal S1 and S2. No gallops, murmurs, or rubs. Normal PMI, no JVD. No pulse deficits. Respiratory: Lungs have equal breath sounds bilaterally, clear to auscultation and percussion. No rales, rhonchi or wheezes noted. No increased work of breathing, no retractions or nasal flaring. Abdomen/GI: Soft, non-tender, with normal bowel sounds. No distension or tympany. No guarding or rebound. No evidence of tenderness throughout. 18:01 Skin: Warm, dry with normal turgor. Normal color with no rashes, no lesions, and no evidence of cellulitis. MS/ Extremity: Pulses equal, no cyanosis. Neurovascular intact. Full, normal range of motion. Neuro: Awake and alert, GCS 15, oriented to person, place, time, and situation. Cranial nerves II-XII grossly intact. Motor strength 5/5 in all extremities. Sensory grossly intact. Cerebellar exam normal. Normal gait. Psych: Awake, alert, with orientation to person, place and time. Behavior, mood, and affect are within normal limits. 18:01 Back: pain, that is mild, ROM is painful, normal spinal alignment noted, CVA tenderness, is absent, vertebral tenderness, is not appreciated, muscle spasm, is appreciated in the lumbar area, left low back and right low back. Vital Signs: 17:03 BP 123 / 70; Pulse 80; Resp 16; Temp 98.2(TE); Pulse Ox 98% on R/A; Weight 58.97 kg bm7 (R); Height 5 ft. 3 in. (160.02 cm); Pain 10/10; 17:03 Body Mass Index 23.03 (58.97 kg, 160.02 cm) bm7 MDM: 17:08 Patient medically screened. jl9 18:01 Data reviewed: vital signs, nurses notes. Counseling: I had a detailed discussion with jl9 the patient and/or guardian regarding: the historical points, exam findings, and any diagnostic results supporting the discharge/admit diagnosis, radiology results, the need for outpatient follow up, to return to the emergency department if symptoms worsen or persist or if there are any questions or concerns that arise at home. 07/18 17:11 Order name: XRAY Lumbar Spine (3 Views); Complete Time: 17:59 jl9 07/18 17:11 Order name: XRAY Sacrum And Coccyx; Complete Time: 17:59 jl9 Administered Medications: 17:20 Drug: Cyclobenzaprine 10 mg Route: PO; hb 18:27 Follow up: Response: No adverse reaction hb Disposition: 18:30 Co-signature as Attending Physician, Nasir Martinez MD. rn Disposition Summary: 07/18/22 18:02 Discharge Ordered Location: Home jl9 Condition: Stable jl9 Diagnosis - Low back pain jl9 Followup: jl9 - With: Private Physician - When: 1 - 2 days - Reason: Recheck today's complaints, Continuance of care, Re-evaluation by your physician Discharge Instructions: - Discharge Summary Sheet jl9 - Acute Back Pain, Adult jl9 - Fall Prevention in the Home, Adult, [id number] jl9 Forms: - Medication Reconciliation Form jl9 - Thank You Letter jl9 - Antibiotic Education jl9 - Prescription Opioid Use jl9 Prescriptions: - Ibuprofen 800 mg Oral Tablet - take 1 tablet by ORAL route every 8 hours As needed take with food; 30 tablet; jl9 Refills: 0, Product Selection Permitted - Cyclobenzaprine 5 mg Oral Tablet - take 1 tablet by ORAL route 3 times per day As needed; 15 tablet; Refills: 0, jl9 Product Selection Permitted Signatures: Dispatcher [employer] Nasir Elizabeth MD MD rn Baxter, Heather RN TORRES Jodie Lazo RN RN bm7 Linares, John 9 Corrections: (The following items were deleted from the chart) 17:07 17:05 Allergies: Omeprazole; bm7 bm7
--- NOTE | 2022-07-18 18:03 | ER ---
Nurse's Notes [facility] Name: Shwetha Chirinos Age: 76 yrs Sex: Female : 1945 Arrival Date: 07/18/2022 Time: 16:58 Bed 9 Private MD: Diagnosis: Low back pain Presentation: 07/18 17:03 Chief complaint: Patient states: I tripped over my own feet walking in the house last bm7 week and fell on my back and now it is really killing me. Coronavirus screen: At this time, the client does not indicate any symptoms associated with coronavirus-19. Ebola Screen: No symptoms or risks identified at this time. Initial Sepsis Screen: Does the patient meet any 2 criteria? No. Patient's initial sepsis screen is negative. Does the patient have a suspected source of infection? No. Patient's initial sepsis screen is negative. Risk Assessment: Do you want to hurt yourself or someone else? Patient reports no desire to harm self or others. Onset of symptoms is unknown. 17:03 Method Of Arrival: Ambulatory [facility] 17:03 Acuity: TAYLOR 3 bm7 Triage Assessment: 17:05 General: Appears in no apparent distress. uncomfortable, well groomed, well developed, bm7 Behavior is calm, cooperative, appropriate for age. Pain: Complains of pain in lumbar area, left low back and right low back. EENT: No deficits noted. No signs and/or symptoms were reported regarding the EENT system. Neuro: No deficits noted. Cardiovascular: No deficits noted. Respiratory: No deficits noted. GI: No deficits noted. No signs and/or symptoms were reported involving the gastrointestinal system. : No deficits noted. No signs and/or symptoms were reported regarding the genitourinary system. Musculoskeletal: Circulation, motion, and sensation intact. Capillary refill < 3 seconds, Reports pain in back. Historical: - Allergies: 17:05 Codeine; bm7 - Home Meds: 17:05 rivastigmine tartrate 1.5 mg oral cap 1 cap 2 times per day [Active]; bm7 - PMHx: 17:05 COPD; Hypertension; bm7 - PSHx: 17:05 Cholecystectomy; Hysterectomy; bm7 - Immunization history:: Adult Immunizations up to date, Client reports receiving the 2nd dose of the Covid vaccine, Client reports receiving the 1st dose of the Covid vaccine. - Social history:: Smoking status: Patient denies any tobacco usage or history of. Screenin:37 Abuse screen: Denies threats or abuse. Denies injuries from another. Nutritional hb screening: No deficits noted. Tuberculosis screening: No symptoms or risk factors identified. Fall Risk None identified. Assessment: 17:37 General: Appears in no apparent distress. Behavior is calm, cooperative. Pain: Pain hb currently is 10 out of 10 on a pain scale. Neuro: Level of Consciousness is awake, alert, obeys commands, Oriented to person, place, time, situation. Cardiovascular: Patient's skin is warm and dry. Respiratory: Respiratory effort is even, unlabored, Respiratory pattern is regular, symmetrical. GI: No signs and/or symptoms were reported involving the gastrointestinal system. : No signs and/or symptoms were reported regarding the genitourinary system. EENT: No signs and/or symptoms were reported regarding the EENT system. Derm: Skin is pink, warm \T\ dry. Musculoskeletal: Reports back pain. 18:10 Reassessment: Patient appears in no apparent distress at this time. Patient and/or hb family updated on plan of care and expected duration. Pain level reassessed. Patient is alert, oriented x 3, equal unlabored respirations, skin warm/dry/pink. Vital Signs: 17:03 BP 123 / 70; Pulse 80; Resp 16; Temp 98.2(TE); Pulse Ox 98% on R/A; Weight 58.97 kg bm7 (R); Height 5 ft. 3 in. (160.02 cm); Pain 10/10; 17:03 Body Mass Index 23.03 (58.97 kg, 160.02 cm) bm7 ED Course: 16:58 Patient arrived in ED. mr 17:05 Triage completed. bm7 17:05 Arm band placed on right wrist. bm7 17:08 Marcus Serrato is PHCP. jl9 17:08 Nasir Martinez MD is Attending Physician. jl9 17:37 Patient has correct armband on for positive identification. hb 17:47 XRAY Lumbar Spine (3 Views) In Process Unspecified. EDMS 17:47 XRAY Sacrum And Coccyx In Process Unspecified. EDMS 18:21 No provider procedures requiring assistance completed. Patient did not have IV access hb during this emergency room visit. Administered Medications: 17:20 Drug: Cyclobenzaprine 10 mg Route: PO; hb 18:27 Follow up: Response: No adverse reaction hb Medication: 17:37 VIS not applicable for this client. hb Outcome: 18:02 Discharge ordered by MD. olivier 18:21 Discharged to home via wheelchair. hb 18:21 Condition: stable 18:21 Discharge instructions given to patient, Instructed on discharge instructions, follow up and referral plans. medication usage, Demonstrated understanding of instructions, follow-up care, medications, Prescriptions given X 2. 18:28 Patient left the ED. hb Signatures: Dispatcher [employer] EDSD Mason Lynda Jing Owens RN RN hb McCarthy, Brittany, RN RN bm7 Linares, John jl9 Corrections: (The following items were deleted from the chart) 17:07 17:05 Allergies: Omeprazole; ben contreras
[2022-07-20 10:20] VITALS: BP 123/70; TEMP 98.2; O2SAT 98
== END 2022-07-18 18:28 | disposition home or self-care (01) ==
LOC: ER 16:54
DX: M54.50 Low back pain, unspecified (principal); I10 Essential (primary) hypertension; Z88.5 Allergy status to narcotic agent
CPT/HCPCS: 72100; 72220; 99283

== ENCOUNTER 2023-02-22 06:50 | Day surgery (SDC) | payer OTHER, MEDICARE ==
[2023-02-21 10:38] LABS: Potassium 3.4 mEq/L (3.5-5.1)
--- NOTE | 2023-02-21 13:42 | EKG ---
Test Date: 2023-02-21 Test Time: 08:39:37 Document Controller: LILLIE MEASUREMENT RESULTS: Intervals: Rate: 63 NM: 204 QRSD: 84 QT: 416 QTc: 425 [place]: P: 60 NM: 204 QRS: 20 T: 68 INTERPRETIVE STATEMENTS: Normal sinus rhythm Septal infarct, age undetermined Abnormal ECG Compared to ECG 10/28/2020 16:03:12 Myocardial infarct finding now present Left ventricular hypertrophy no longer present Electronically Signed On 02-21-23 13:41:39 CDT by Rudy Dejesus
[2023-02-22] MEDS ORDERED: Ringers Lactate 1,000 ML IV ONE (07:21)
[2023-02-22 07:58] VITALS: O2SAT 97
[2023-02-22] MEDS ORDERED: propofoL 200 MG/20 ML VIAL IV ONE ×2 (08:49)
[2023-02-22] MEDS ORDERED: LIDOCAINE 1% MPF 5 ML VIAL ONE (08:49)
[2023-02-22 10:10] VITALS: TEMP 97.5
[2023-02-22 10:14] VITALS: BP 137/67
== END 2023-02-22 10:03 | disposition home or self-care (01) ==
LOC: OR 06:50
PROVIDERS: ATTEND Surgery
PROC: 0DB78ZX Excision of Stomach, Pylorus, Via Natural or Artificial Opening Endoscopic, Diagnostic (ICD-10-PCS; 2023-02-22)
PROC: 0DB68ZX Excision of Stomach, Via Natural or Artificial Opening Endoscopic, Diagnostic (ICD-10-PCS; 2023-02-22)
PROC: 0DBL8ZX Excision of Transverse Colon, Via Natural or Artificial Opening Endoscopic, Diagnostic (ICD-10-PCS; principal; 2023-02-22 08:15)
PROC: 0DB98ZX Excision of Duodenum, Via Natural or Artificial Opening Endoscopic, Diagnostic (ICD-10-PCS; 2023-02-22 08:15)
DX: R10.13 Epigastric pain (principal); K52.9 Noninfective gastroenteritis and colitis, unspecified; K21.9 Gastro-esophageal reflux disease without esophagitis; K29.50 Unspecified chronic gastritis without bleeding; K64.8 Other hemorrhoids; K44.9 Diaphragmatic hernia without obstruction or gangrene; J44.9 Chronic obstructive pulmonary disease, unspecified; I25.10 Atherosclerotic heart disease of native coronary artery without angina pectoris; Z88.6 Allergy status to analgesic agent
CPT/HCPCS: 93005; 80048; 36415; 88312; 88305; 45380; 43239; J2704; J2001; J7120

== ENCOUNTER 2023-03-19 13:05 | Emergency (ER) | payer OTHER, MEDICARE ==
--- OUTSIDE RECORDS SUMMARY | 2023-03-19 13:11 | XMS REPORT | Continuity of Care Document ---
:1945 Author Organization [facility] t Address [address] [facility] [address] [place] [address] Care Team Providers Name Role Phone Umair Ferrera MD, Jony Knight Primary Care Physician [phone] Lonnie Gonzales Attending Clinician Unavailable LAURA HARVEY Attending Clinician Unavailable Demetrius VAZ, Harsh Ayala Attending Clinician Susan Alvarado MA Attending Clinician Unavailable Denny VAZ, Alecia BShirley Attending Clinician VIRGINIA COMBS Attending Clinician Unavailable Cisco Sexton PA-C Attending Clinician Silvia Ledbetter Attending Clinician Unavailable Tracy Ron MA Attending Clinician Unavailable Reed Almendarez MD Attending Clinician REED ALMENDAREZ Attending Clinician Unavailable REED ALMENDAREZ Attending Clinician Unavailable Taco Duffy MD Attending Clinician Lesly Duque RN Attending Clinician Unavailable TREMAINE CHAUDHRY Attending Clinician Unavailable TREMAINE CHAUDHRY Attending Clinician Unavailable Tremaine Chaudhry MD Attending Clinician Doctor Unassigned, [place] Attending Clinician Unavailable , [facility] Sleep Lab Bed Attending Clinician Unavailable Tejal Vital MD Attending Clinician [phone] Ariana Perez MD Attending Clinician Dagoberto DE LA CRUZ, Radha Attending Clinician Unavailable Moriah Celestin MA Attending Clinician Unavailable Lab, Ang - Db Attending Clinician Unavailable BLANCA MEJIA Attending Clinician Unavailable TEJAL VITAL Attending Clinician Unavailable Gino FRANKLINPVirginia Attending Clinician INDIRA DHILLON Attending Clinician Unavailable LAURA HARVEY Admitting Clinician Unavailable ABDOULAYE DAO Admitting Clinician Unavailable TREMAINE CHAUDHRY Admitting Clinician Unavailable Payers Payer Name Policy Type Policy Number Effective Date Expiration Date S abdulkadir MEDICARE PART A [id number] 2012 \T\ B 00:00:00 [place] [id number] 2019 HEALTHCARE 00:00:00 MEDICARE SUPPLEMENT MEDICARE LINO [id number] 2012 Common 00:00:00 [facility] AARP C1 [id number] 2018 Common 00:00:00 [facility] Problems Condition Condition Condition Status Onset Resolution Last Treating Co mments Source Name Details Category Date Date Treatment Clinician Date COPD COPD Disease Active Methodi exacerbati exacerbati 2 on 00:00: Hospita 00 l [id number] Dementia Problem Commo n without Spirit behavioral [facility] unspecifie Medica l d dementia Center type [id number] Daytime Problem Comm on 00 somnolence Spirit [facility] Crohns Crohn''s Problem Common disease disease Spirit with - [facility] unspecifie Medica l d Center gastrointe stinal tract location [id number] Age Problem Common related Spirit [facility] al fracture presence [id number] Chronic Problem Common obstructiv Spirit e - [facility] disease[facility] unspecifie Medica l d COPD Center type Mental Mental Problem Common retardatio deficiency Sp ilia n - [facility] [id number] GERD Problem Common without Spirit esophagiti - [facility] [id number] Basal cell Problem Co mmon carcinoma Spirit of nose - [facility] [id number] Mixed Problem Common hyperlipid Spirit emia - [facility] [id number] Essential Problem Comm on (primary) Spirit hypertensi - [facility] Arthritis Arthritis Disease Active Overview: Univers Formattin ity of g of this [place] note Medical might be Branch different from the original. mainly in hands/fin gers GERD GERD Disease Active Univers (gastroeso (gastroeso it y of phageal phageal [place] reflux reflux Medical disease) disease) Branch Allergies, [...] MONOHYD/ 00:00: [place] M-CRYST 00 Medical Branch CODEINE DRUG Active Other-Cmnt Unive rs INGREDI 02-09 ity of 00:00: [place] 00 Medical Branch Codeine Propensi Active Other (See Makes her Methodi ty to Comments) 02-[address] adverse 00:00: spacey/go Hospit a reaction 00 ofy l s to drug Codeine Codeine Active dizziness Commo n Spirit - [facility] Social History Social Habit Start Date Stop Date Quantity Comments Source Gender identity 2018-10-24 Identifies as Method ist 11:40:10 female gender Hospital (finding) Sexual orientation 2018-10-24 Heterosexual Meth odist 11:40:10 (finding) Hospital History of Tobacco Common Spirit - Use [facility] Sex Assigned At Common Sp ilia - [facility] Alcohol intake 2023-02-26 2023-02-26 Current non-drinker M ethodist 00:00:00 00:00:00 of alcohol Hospital (finding) History of Social 2023-02-26 2023-02-[address] function 00:00:00 00:00:00 Hospital Exposure to 2022-10-21 2022-10-31 Not sure University of SARS-CoV-2 (event) 00:00:00 13:47:00 [facility] Cigarettes smoked 2021-10-25 2021-10-[address] current (pack per 00:00:00 00:00:00 Hospita l day) - Reported Cigarette 2021-10-25 2021-10-25 [facility] pack-years 00:00:00 00:00:00 Hospital Tobacco use and 2021-10-25 2021-10-25 Smokeless tobacco Me thodist exposure 00:00:00 00:00:00 non-user Hospital Alcohol Comment 2020-05-23 2020-05-23 seldom Universit y of 00:00:00 00:00:00 [facility] History SDHI 2020-05-23 2020-05-23 99 University o f Alcohol Frequency 00:00:00 00:00:00 [facility] edical Branch History SDHI 2020-05-23 2020-05-23 99 University o f Alcohol Std Drinks 00:00:00 00:00:00 [facility] History [facility] 2020-05-23 2020-05-23 99 [place] o f Alcohol Binge 00:00:00 00:00:[address] [facility] al Branch Smoking Status Start Date Stop Date Source Ex-smoker 2021-10-25 00:00:00 2021-10-25 00:00:[facility] Medications Ordered Filled Start Stop Current Ordering Indication Dosage Frequency Signature Comments Components Source Medication Medication Date Date Medication? Clinician (SIG) Name Name omeprazole Yes 40mg QD Take 1 Metho di (PriLOSEC) 02-[address] 40 MG 11:08: (40 mg Hospita capsule 38 total) by l mouth daily. acetaminoph Yes QD Take by Met miriam en (TYLENOL 5-[address] ORAL) 11:08: daily. Hospita 38 l fluticasone 2022- No QD Inhale 1 M ethodi furoate-ko 12-27 inhalation s t anteroL 00:00: 00:00 s daily. Hospi ta (Breo 00 :00 l Ellipta) 200-25 mcg/dose blister with device powder for inhalation levalbutero 2022- No 2{puff} Q6H Inhale 2 Methodi l (Xopenex 3-09 05-[address] HFA) 45 00:00: 00:00 every 6 Hospit a mcg/actuati 00 :00 (six) l on inhaler hours as needed for wheezing. cyclobenzap 2022- No 5mg Q.[id number] Take 1 Methodi rine 12-18 03-31 [id number] tablet (5 st (FLEXERIL) 00:00: 04:59 3D mg total) H ospita 5 mg tablet 00 :00 by mouth 3 l (three) times a day as needed for muscle spasms for up to 30 days. rosuvastati 2022- No Crestor 40 Methodi n (CRESTOR) 11-23 02-[address] 40 MG 15:53: 00:00 Hospita tablet 32 :00 l albuterol 2022- No ProAir HFA M ethodi (PROAIR 11-23-[address] HFA,PROVENT 15:53: 00:00 mcg/actuat Hospita [place] 25 :00 ion l HFA,VENTOLI aerosol N HFA) 90 inhaler mcg/actuati on inhaler fluticasone Yes QD Inhale 1 Me thodi -umeclidin- 2-[address] vilanter 00:00: s once Hospita (TRELEGY 00 daily. l ELLIPTA) 200-62.5-25 mcg blister with device ipratropium 2022-0 2022- No [id number] 3mL Q.25D Take 3 mL Methodi -albuteroL 11-22 by (DUO-NEB) 00:00: 05:59 nebulizati H ospita 0.5-2.5 00 :00 on 4 l mg/3 mL (four) nebulizer times a day for 30 days. ipratropium 2022-0 2022- No [id number] 3mL Q.25D Take 3 mL Methodi -albuteroL 11-22 by (DUO-NEB) 00:00: 00:00 nebulizati H ospita 0.5-2.5 00 :00 on 4 l mg/3 mL (four) nebulizer times a day. traMADoL 2022-0 2022- No [id number] 50mg Q4H Take 1 Metho di (ULTRAM) 50 24 02-03 tablet (50 s t mg tablet 00:00: 00:00 mg total) Ho spita 00 :00 by mouth l every 4 (four) hours as needed for moderate pain for up to 20 days .acute pain. donepeziL 2021-10 Yes [id number] 10mg Take 1 Un oren (ARICEPT) 2-09 tablet by ity o f 10 mg 00:00: mouth at [place] tablet 00 bedtime. Medical Branch donepeziL 2021-10 Yes [id number] 10mg Take 1 Un oren (ARICEPT) 2-09 tablet by ity o f 10 mg 00:00: mouth at [place] tablet 00 bedtime. Medical Branch donepeziL 2021-10 Yes [id number] 10mg Take 1 Un oren (ARICEPT) 2-09 tablet by ity o f 10 mg 00:00: mouth at [place] tablet 00 bedtime. Medical Branch donepeziL 2021-10 Yes [id number] 10mg Take 1 Un oren (ARICEPT) 2-09 tablet by ity o f 10 mg 00:00: mouth at [place] tablet 00 bedtime. Medical Branch donepeziL 2021-10 Yes Methodi (ARICEPT) 2-09 st 10 MG 00:00: Hospita tablet 00 l donepeziL 5 2021-10 Yes [id number] 5mg Take 1 Univers mg tablet 1-08 tablet by ity o f 00:00: mouth at [place] 00 bedtime. Medical Branch donepeziL 5 2021-10 Yes [id number] 5mg Take 1 Univers mg tablet 1-08 tablet by ity o f 00:00: mouth at [place] 00 bedtime. Medical Branch donepeziL 5 2021-10 Yes [id number] 5mg Take 1 Univers mg tablet 1-08 tablet by ity o f 00:00: mouth at [place] 00 bedtime. Medical Branch donepeziL 5 2021-10- No [id number] 5mg Take 1 Univers mg tablet 10-28- tablet by ity of 00:00: 00:00 mouth at [place] 00 :00 bedtime. Medical Branch donepeziL 5 2021-10- No [id number] 5mg Take 1 Univers mg tablet 10-28- tablet by ity of 00:00: 00:00 mouth at [place] 00 :00 bedtime. Medical Branch rivastigmin 2021- Yes [id number] 1{patch Apply 1 Univers e 4.6 mg/24 9-09 } Patch to [place]y of hour patch 00:00[place] 00 the morning. Branch rivastigmin Yes [id number] 1{patch Apply 1 Univers e 9.5 mg/24 9-09 } Patch to [place]y of hour patch 00:00: [place] the morning. Branch Use this script when the rivastigmi ne 4.6 mg patch is used up. rivastigmin 2021- Yes [id number] 1{patch Apply 1 Univers e 4.6 mg/24 909 } Patch to ity of hour patch 00:00: [place] the . Branch rivastigmin 2021- Yes [id number] 1{patch Apply 1 Univers e 9.5 mg/24 909 } Patch to [place]y of hour patch 00:00: [place] the . Branch Use this script when the rivastigmi ne 4.6 mg patch is used up. rivastigmin 2021- Yes [id number] 1{patch Apply 1 Univers e 4.6 mg/24 909 } Patch to [place]y of hour patch 00:00: [place] 00 the . Branch rivastigmin Yes [id number] 1{patch Apply 1 Univers e 9.5 mg/24 909 } Patch to ity of hour patch 00:00: [place] the . Branch Use this script when the rivastigmi ne 4.6 mg patch is used up. rivastigmin 2021- Yes [id number] 1{patch Apply 1 Univers e 4.6 mg/24 9-09 } Patch to [place]y of hour patch 00:00: [place] 00 the morning. Branch rivastigmin 2021- Yes [id number] 1{patch Apply 1 Univers e 9.5 mg/24 9-09 } Patch to ity of hour patch 00:00: [place] 00 the morning. Branch Use this script when the rivastigmi ne 4.6 mg patch is used up. rivastigmin Yes [id number] 1{patch Apply 1 Univers e 4.6 mg/24 06-29 } Patch to [place]y of hour patch 00:00: [place] 00 the Medical morning. [place] rivastigmin Yes [id number] 1{patch Apply 1 Univers e 9.5 mg/24 06-29 } Patch to [place]y of hour patch 00:00: [place] 00 the Medical morning. [place] Use this script when the rivastigmi ne 4.6 mg patch is used up. rivastigmin Yes [id number] 1{patch Apply 1 Univers e 4.6 mg/24 06-29 } Patch to ity of hour patch 00:00: [place] 00 the Medical morning. [place] rivastigmin Yes [id number] 1{patch Apply 1 Univers e 9.5 mg/24 06-29 } Patch to ity of hour patch 00:00: [place] 00 the Medical morning. [place] Use this script when the rivastigmi ne 4.6 mg patch is used up. rivastigmin Yes [id number] 1{patch Apply 1 Univers e 4.6 mg/24 06-29 } Patch to ity of hour patch 00:00: [place] 00 the Medical morning. [place] rivastigmin Yes [id number] 1{patch Apply 1 Univers e 9.5 mg/24 06-29 } Patch to ity of hour patch 00:00: [place] 00 the Medical morning. [place] Use this script when the rivastigmi ne 4.6 mg patch is used up. rivastigmin 2021- No [id number] 1{patch Apply 1 Univers e 4.6 mg/24 06-29 } Patch to ity of hour patch 00:00: 00:00 skin in [place] 00 :00 the Medical morning. [place] rivastigmin 2021- No [id number] 1{patch Apply 1 Univers e 9.5 mg/24 06-29 } Patch to ity of hour patch 00:00: 00:00 skin in [place] 00 :00 the Medical morning. [place] Use this script when the rivastigmi ne 4.6 mg patch is used up. rivastigmin 2021-2021- No [id number] 1{patch Apply 1 Univers e 4.6 mg/24 06-29 } Patch to ity of hour patch 00:00: 00:00 skin in [place] 00 :00 the Medical morning. [place] rivastigmin 2021- No [id number] 1{patch Apply 1 Univers e 9.5 mg/24 06-29 } Patch to ity of hour patch 00:00: 00:00 skin in [place] 00 :00 the Medical morning. Branch Use this script when the rivastigmi ne 4.6 mg patch is used up. Zofran 4 MG Zofran 4 MG 2022-0 No BID Zofran 4 8-16 MG 00:00: 00 Zofran 4 MG Zofran 4 MG 2022-0 No BID Zofran 4 8-16 MG 00:00: 00 Zofran 4 MG Zofran 4 MG 2022-0 No BID Zofran 4 8-16 MG 00:00: 00 Zofran 4 MG Zofran 4 MG 2022-0 No BID Zofran 4 8-16 MG 00:00: 00 Zofran 4 MG Zofran 4 MG 2022-0 No BID Zofran 4 8-16 MG 00:00: 00 Zofran 4 MG Zofran 4 MG 2022-0 No BID Zofran 4 8-16 MG 00:00: 00 Zofran 4 MG Zofran 4 MG 2022-0 No BID Zofran 4 8-16 MG 00:00: 00 Zofran 4 MG Zofran 4 MG 2022-0 No BID Zofran 4 8-16 MG 00:00: 00 Zofran 4 MG Zofran 4 MG 2022-0 No BID Zofran 4 8-16 MG 00:00: 00 rivastigmin 2021-2021- No 1{patch Apply 1 Univers e 4.6 mg/24 05-25 } Patch to ity of hour patch 00:00: 00:00 skin in [place] 00 :00 the Medical morning. [place] rivastigmin 2021- No 1{patch Apply 1 Univers e 4.6 mg/24 05-25 } Patch to ity of hour patch 00:00: 00:00 skin in [place] 00 :00 the Medical morning. [facility] Yes cyclobenza Univers rine 10 mg 2-28 shanell 10 ity o f tablet 10:51: mg tablet [place] 24 Take 1 Medical tablet 3 Branch times a day by oral route as directed for 10 days. diazePAM 2 Yes diazepam 2 U nivers mg tablet 2-28 mg tablet ity o f 10:51: [address] cyclobenza Univers rine 10 mg 2-28 shanell 10 ity o f tablet 10:51: mg tablet 24 Take 1 Medical tablet 3 Branch times a day by oral route as directed for 10 days. diazePAM 2 Yes diazepam 2 U nivers mg tablet 2-28 mg tablet ity o f 10:51: [address] Yes cyclobenza Univers rine 10 mg 2-28 shanell 10 ity o f tablet 10:51: mg tablet 24 Take 1 Medical tablet 3 Branch times a day by oral route as directed for 10 days. diazePAM 2 Yes diazepam 2 U nivers mg tablet 2-28 mg tablet ity o f 10:51: [address] Yes cyclobenza Univers rine 10 mg 2-28 shanell 10 ity o f tablet 10:51: mg tablet 24 Take 1 Medical tablet 3 Branch times a day by oral route as directed for 10 days. diazePAM 2 Yes diazepam 2 U nivers mg tablet 2-28 mg tablet ity o f 10:51: [address] cyclobenza Univers rine 10 mg 2-28 shanell 10 ity o f tablet 10:51: mg tablet 24 Take 1 Medical tablet 3 Branch times a day by oral route as directed for 10 days. diazePAM 2 Yes diazepam 2 U nivers mg tablet 2-28 mg tablet ity o f 10:51: [address] cyclobenza Univers rine 10 mg 2-28 shanell 10 ity o f tablet 10:51: mg tablet 24 Take 1 Medical tablet 3 Branch times a day by oral route as directed for 10 days. diazePAM 2 Yes diazepam 2 U nivers mg tablet 2-28 mg tablet ity o f 10:51: [address] cyclobenza Univers rine 10 mg 2-28 shanell 10 ity o f tablet 10:51: mg tablet [place] 24 Take 1 Medical tablet 3 Branch times a day by oral route as directed for 10 days. diazePAM 2 Yes diazepam 2 U nivers mg tablet 2-28 mg tablet ity o f 10:51: [address] cyclobenza Univers rine 10 mg 2-28 shanell 10 ity o f tablet 10:51: mg tablet [place] 24 Take 1 Medical tablet 3 Branch times a day by oral route as directed for 10 days. diazePAM 2 Yes diazepam 2 U nivers mg tablet 2-28 mg tablet ity o f 10:51: [address] cyclobenza Univers rine 10 mg 2-28 shanell 10 ity o f tablet 10:51: mg tablet [place] 24 Take 1 Medical tablet 3 Branch times a day by oral route as directed for 10 days. diazePAM Yes diazepam 2 U nivers mg tablet 2-28 mg tablet ity o f 10:51: [address] cyclobenza Univers rine 10 mg 2-28 shanell 10 ity o f tablet 10:51: mg tablet 24 Take 1 Medical tablet 3 Branch times a day by oral route as directed for 10 days. diazePAM Yes diazepam 2 U nivers mg tablet 2-28 mg tablet ity o f 10:51: [address] cyclobenza Univers rine 10 mg 2-28 shanell 10 ity o f tablet 10:51: mg tablet [place] 24 Take 1 Medical tablet 3 Branch times a day by oral route as directed for 10 days. diazePAM 2 Yes diazepam 2 U nivers mg tablet 2-28 mg tablet ity o f 10:51: [address] cyclobenza Univers rine 10 mg 2-28 [...] mg tablet ity o f 10:51: [place] [address] [place] [address] Branch donepeziL 5 2021- No [id number] 5mg Take 1 Univers mg tablet 2-28 -09 tablet by ity of 00:00: 00:00 mouth at [place] 00 :00 bedtime. Medical When Branch script runs out, call in for another increase. donepeziL 5 2021- No [id number] 5mg Take 1 Univers mg tablet 2-28 [...] FOR 10 Branch TO 14 DAYS clotrimazol 2021-0 Yes DISSOLVE 1 Univers e 10 mg 2-09 LOZENGE BY ity of caridad 00:00: MOUTH FIVE [place] 00 TIMES A Medical DAY FOR 10 Branch TO 14 DAYS clotrimazol 2021-0 Yes DISSOLVE 1 Univers e 10 mg 2-09 LOZENGE BY ity of caridad 00:00: MOUTH FIVE [place] 00 TIMES A Medical DAY FOR 10 Branch TO 14 DAYS clotrimazol 2021-0 Yes DISSOLVE 1 Univers e 10 mg 2-09 LOZENGE BY ity of caridad 00:00: MOUTH FIVE [place] 00 TIMES A Medical DAY FOR 10 Branch TO 14 DAYS clotrimazol 2021-0 Yes DISSOLVE 1 Univers e 10 mg 2-09 LOZENGE BY ity of caridad 00:00: MOUTH FIVE [place] 00 TIMES A Medical DAY FOR 10 Branch TO 14 DAYS clotrimazol 2021-0 Yes DISSOLVE 1 Univers e 10 mg 2-09 LOZENGE BY ity of caridad 00:00: MOUTH FIVE [place] 00 TIMES A Medical DAY FOR 10 Branch TO 14 DAYS clotrimazol 2021-0 Yes DISSOLVE 1 Univers e 10 mg 2-09 LOZENGE BY ity of caridad 00:00: MOUTH FIVE [place] 00 TIMES A Medical DAY FOR 10 Branch TO 14 DAYS clotrimazol 2021-0 Yes DISSOLVE 1 Univers e 10 mg 2-09 LOZENGE BY ity of caridad 00:00: MOUTH FIVE [place] 00 TIMES A Medical DAY FOR 10 Branch TO 14 DAYS clotrimazol 2021-0 Yes DISSOLVE 1 Univers e 10 mg 2-09 LOZENGE BY ity of caridad 00:00: MOUTH FIVE [place] 00 TIMES A Medical DAY FOR 10 Branch TO 14 DAYS clotrimazol 2021-0 Yes DISSOLVE 1 Univers e 10 mg 2-09 LOZENGE BY ity of caridad 00:00: MOUTH FIVE [place] 00 TIMES A Medical DAY FOR 10 Branch TO 14 DAYS clotrimazol 2021-0 Yes DISSOLVE 1 Univers e 10 mg 2-09 LOZENGE BY ity of caridad 00:00: MOUTH FIVE [place] 00 TIMES A Medical DAY FOR 10 Branch TO 14 DAYS meloxicam 2020-102- No 7.5mg QD Take 1 Meth do (Mobic) 7.5 2-29 03-[address] mg tablet 00:00: 04:59 (7.5 mg Hosp alice 00 :00 total) by l mouth daily for 90 days. meloxicam 2020-102- No 7.5mg QD Take 1 Meth do (Mobic) 7.5 -29 03-[address] mg tablet 00:00: 04:59 (7.5 mg Hosp alice 00 :00 total) by l mouth daily for 90 days. meloxicam 2020-10 Yes 15mg Take 15 mg Un oren 15 mg 2-28 by mouth ity of tablet 00:00: daily. [facility] meloxicam 2020-10 Yes 15mg Take 15 mg Un oren 15 mg 2-28 by mouth ity of tablet 00:00: daily. [place] [facility] meloxicam 2020-10 Yes 15mg Take 15 mg Un oren 15 mg 2-28 by mouth ity of tablet 00:00: daily. [place] [facility] meloxicam 2020-10 Yes 15mg Take 15 mg Un oren 15 mg 2-28 by mouth ity of tablet 00:00: daily. [facility] meloxicam 2020-10 Yes 15mg Take 15 mg Un oren 15 mg 2-28 by mouth ity of tablet 00:00: daily. [place] [facility] meloxicam 2020-10 Yes 15mg Take 15 mg Un oren 15 mg 2-28 by mouth ity of tablet 00:00: daily. [place] [facility] meloxicam 2020-10 Yes 15mg Take 15 mg Un oren 15 mg 2-28 by mouth ity of tablet 00:00: daily. [facility] meloxicam 2020-10 Yes 15mg Take 15 mg Un oren 15 mg 2-28 by mouth ity of tablet 00:00: daily. [place] [facility] meloxicam 2020-10 Yes 15mg Take 15 mg Un oren 15 mg 2-28 by mouth ity of tablet 00:00: daily. [place] [facility] meloxicam 2020-10 Yes 15mg Take 15 mg Un oren 15 mg 2-28 by mouth ity of tablet 00:00: daily. [place] [facility] meloxicam 2020-10 Yes 15mg Take 15 mg Un oren 15 mg 2-28 by mouth ity of tablet 00:00: daily. [address] meloxicam 2020-10 Yes 15mg Take 15 mg Un oren 15 mg 2-28 by mouth ity of tablet 00:00: daily. [address] meloxicam 2020-10 Yes 15mg Take 15 mg Un oren 15 mg 2-28 by mouth ity of tablet 00:00: daily. [address] meloxicam 2020-10 Yes 15mg Take 15 mg Un oren 15 mg 2-28 by mouth ity of tablet 00:00: daily. [address] solifenacin 2020-10- No [facility] M ethodi [...] QD Take 40 mg M ethodi (PriLOSEC) - by mouth st 40 MG 10:46: daily. [...] route as directed for 10 days. cyclobenzap 2021-1 2021- No cyclobenza Methodi rine 11-[address] (FLEXERIL) 10:45: 00:00 mg tablet H ospita 10 mg 14 :00 Take 1 l tablet tablet 3 times a day by oral route as directed for 10 days. IPRATROPIUM 2020-10 Yes [id number] INHALE 1 Univers 0.02 % 1-13 VIAL(2.5 ity of nebulizer 00:00: ML) VIA [place] solution 00 NEBULIZER Medica l TWICE Branch DAILY NEEDED FOR WHEEZING OR SHORTNESS OF BREATH IPRATROPIUM 2020-10 Yes [id number] INHALE 1 Univers 0.02 % 1-13 VIAL(2.5 ity of nebulizer 00:00: ML) VIA [place] solution 00 NEBULIZER Medica l TWICE Branch DAILY NEEDED FOR WHEEZING OR SHORTNESS OF BREATH IPRATROPIUM 2020-10 Yes [id number] INHALE 1 Univers 0.02 % 1-13 VIAL(2.5 ity of nebulizer 00:00: ML) VIA [place] solution 00 NEBULIZER Medica l TWICE Branch DAILY NEEDED FOR WHEEZING OR SHORTNESS OF BREATH IPRATROPIUM 2020-10 Yes [id number] INHALE 1 Univers 0.02 % 1-13 VIAL(2.5 ity of nebulizer 00:00: ML) VIA [place] solution 00 NEBULIZER Medica l TWICE Branch DAILY NEEDED FOR WHEEZING OR SHORTNESS OF BREATH IPRATROPIUM 2020-10 Yes [id number] INHALE 1 Univers 0.02 % 1-13 VIAL(2.5 ity of nebulizer 00:00: ML) VIA [place] solution 00 NEBULIZER Medica l TWICE Branch DAILY NEEDED FOR WHEEZING OR SHORTNESS OF BREATH IPRATROPIUM 2020-10 Yes [id number] INHALE 1 Univers 0.02 % 1-13 VIAL(2.5 ity of nebulizer 00:00: ML) VIA [place] solution 00 NEBULIZER Medica l TWICE Branch DAILY NEEDED FOR WHEEZING OR SHORTNESS OF BREATH IPRATROPIUM 2020-10 Yes [id number] INHALE 1 Univers 0.02 % 1-13 VIAL(2.5 ity of nebulizer 00:00: ML) VIA [place] solution 00 NEBULIZER Medica l TWICE Branch DAILY NEEDED FOR WHEEZING OR SHORTNESS OF BREATH IPRATROPIUM 2020-10 Yes [id number] INHALE 1 Univers 0.02 % 1-13 VIAL(2.5 ity of nebulizer 00:00: ML) VIA [place] solution 00 NEBULIZER Medica l TWICE Branch DAILY NEEDED FOR WHEEZING OR SHORTNESS OF BREATH IPRATROPIUM 2020-10 Yes [id number] INHALE 1 Univers 0.02 % 1-13 VIAL(2.5 ity of nebulizer 00:00: ML) VIA [place] solution 00 NEBULIZER Medica l TWICE Branch DAILY NEEDED FOR WHEEZING OR SHORTNESS OF BREATH IPRATROPIUM 2020-10 Yes [id number] INHALE 1 Univers 0.02 % 1-13 VIAL(2.5 ity of nebulizer 00:00: ML) VIA [place] solution 00 NEBULIZER Medica l TWICE Branch DAILY NEEDED FOR WHEEZING OR SHORTNESS OF BREATH IPRATROPIUM 2020-10 Yes [id number] INHALE 1 Univers 0.02 % 1-13 VIAL(2.5 ity of nebulizer 00:00: ML) VIA [place] solution 00 NEBULIZER Medica l TWICE Branch DAILY NEEDED FOR WHEEZING OR SHORTNESS OF BREATH IPRATROPIUM 2020-10 Yes [id number] INHALE 1 Univers 0.02 % 1-13 VIAL(2.5 ity of nebulizer 00:00: ML) VIA [place] solution 00 NEBULIZER Medica l TWICE Branch DAILY NEEDED FOR WHEEZING OR SHORTNESS OF BREATH IPRATROPIUM 2020-10 Yes [id number] INHALE 1 Univers 0.02 % 1-13 VIAL(2.5 ity of nebulizer 00:00: ML) VIA [place] solution 00 NEBULIZER Medica l TWICE Branch DAILY NEEDED FOR WHEEZING OR SHORTNESS OF BREATH IPRATROPIUM 2020-10 Yes [id number] INHALE 1 Univers 0.02 % 1-13 VIAL(2.5 ity of nebulizer 00:00: ML) VIA [place] solution 00 NEBULIZER Medica l TWICE Branch DAILY NEEDED FOR WHEEZING OR SHORTNESS OF BREATH ascorbic 2020- Yes 500mg Take 500 Univ ers acid, 3-03 mg by ity of vitamin C, 15:51: mouth. [place] (VITAMIN C) 53 Medical 500 mg Branch tablet vitamin 2020- Yes 250ug Take 250 Unive rs B-12 3-03 mcg by ity of (VITAMIN 15:51: mouth [place] B-12) 250 53 daily. Medical mcg tablet Branch zinc Yes Take by Univers sulfate 3-03 mouth. ity of (ZINC-15 15:51: [place] ORAL) 53 Medical Branch ascorbic 2020-0 Yes 500mg Take 500 Univ ers acid, 3-03 mg by ity of vitamin C, 15:51: mouth. [place] (VITAMIN C) 53 Medical 500 mg Branch tablet vitamin 2020-0 Yes 250ug Take 250 Unive rs B-12 3-03 mcg by ity of (VITAMIN 15:51: mouth [place] B-12) 250 53 daily. Medical mcg tablet Branch zinc 2020-0 Yes Take by [facility] sulfate 3-03 mouth. ity of (ZINC-15 15:51: [place] ORAL) 53 Medical Branch ascorbic 2020-0 Yes 500mg Take 500 Univ ers acid, 3-03 mg by ity of vitamin C, 15:51: mouth. [place] (VITAMIN C) 53 Medical 500 mg Branch tablet vitamin 2020-0 Yes 250ug Take 250 Unive rs B-12 3-03 mcg by ity of (VITAMIN 15:51: mouth [place] B-12) 250 53 daily. Medical mcg tablet Branch zinc 2020-0 Yes Take by [facility] sulfate 3-03 mouth. ity of (ZINC-15 15:51: [place] ORAL) 53 Medical Branch ascorbic 2020-0 Yes 500mg Take 500 Univ ers acid, 3-03 mg by ity of vitamin C, 15:51: mouth. [place] (VITAMIN C) 53 Medical 500 mg Branch tablet vitamin 2020-0 Yes 250ug Take 250 Unive rs B-12 3-03 mcg by ity of (VITAMIN 15:51: mouth [place] B-12) 250 53 daily. Medical mcg tablet Branch zinc 2020-0 Yes Take by [facility] sulfate 3-03 mouth. ity of (ZINC-15 15:51: [place] ORAL) 53 Medical Branch ascorbic 2020-0 Yes 500mg Take 500 Univ ers acid, 3-03 mg by ity of vitamin C, 15:51: mouth. [place] (VITAMIN C) 53 Medical 500 mg Branch tablet vitamin 2020-0 Yes 250ug Take 250 Unive rs B-12 3-03 mcg by ity of (VITAMIN 15:51: mouth [place] B-12) 250 53 daily. Medical mcg tablet Branch zinc 2020-0 Yes Take by [facility] sulfate 3-03 mouth. ity of (ZINC-15 15:51: [place] ORAL) 53 Medical Branch ascorbic 2020-0 Yes 500mg Take 500 Univ ers acid, 3-03 mg by ity of vitamin C, 15:51: mouth. [place] (VITAMIN C) 53 Medical 500 mg Branch tablet vitamin 2020-0 Yes 250ug Take 250 Unive rs B-12 3-03 mcg by ity of (VITAMIN 15:51: mouth [place] B-12) 250 53 daily. Medical mcg tablet Branch zinc 2020-0 Yes Take by [facility] sulfate 3-03 mouth. ity of (ZINC-15 15:51: [place] ORAL) 53 Medical Branch ascorbic 0 Yes 500mg Take 500 Univ ers acid, 3-03 mg by ity of vitamin C, 15:51: mouth. [place] (VITAMIN C) 53 Medical 500 mg Branch tablet vitamin 2020-0 Yes 250ug Take 250 Unive rs B-12 3-03 mcg by ity of (VITAMIN 15:51: mouth [place] B-12) 250 53 daily. Medical mcg tablet Branch zinc 0 Yes Take by [facility] sulfate 3-03 mouth. ity of (ZINC-15 15:51: [place] ORAL) 53 Medical Branch ascorbic 0 Yes 500mg Take 500 Univ ers acid, 3-03 mg by ity of vitamin C, 15:51: mouth. [place] (VITAMIN C) 53 Medical 500 mg Branch tablet vitamin 2020-0 Yes 250ug Take 250 Unive rs B-12 3-03 mcg by ity of (VITAMIN 15:51: mouth [place] B-12) 250 53 daily. Medical mcg tablet Branch zinc 2020-0 Yes Take by [facility] sulfate 3-03 mouth. ity of (ZINC-15 15:51: [place] ORAL) 53 Medical Branch ascorbic 2020-0 Yes 500mg Take 500 Univ ers acid, 3-03 mg by ity of vitamin C, 15:51: mouth. [place] (VITAMIN C) 53 Medical 500 mg Branch tablet vitamin 2020-0 Yes 250ug Take 250 Unive rs B-12 3-03 mcg by ity of (VITAMIN 15:51: mouth [place] B-12) 250 53 daily. Medical mcg tablet Branch zinc 2020-0 Yes Take by [facility] sulfate 3-03 mouth. ity of (ZINC-15 15:51: [place] ORAL) 53 Medical Branch ascorbic 2020-0 Yes 500mg Take 500 Univ ers acid, 3-03 mg by ity of vitamin C, 15:51: mouth. [place] (VITAMIN C) 53 Medical 500 mg Branch tablet vitamin 2020-0 Yes 250ug Take 250 Unive rs B-12 3-03 mcg by ity of (VITAMIN 15:51: mouth [place] B-12) 250 53 daily. Medical mcg tablet Branch zinc 2020-0 Yes Take by [facility] sulfate 3-03 mouth. ity of (ZINC-15 15:51: [place] ORAL) 53 Medical Branch ascorbic 2020-0 Yes 500mg Take 500 Univ ers acid, 3-03 mg by ity of vitamin C, 15:51: mouth. [place] (VITAMIN C) 53 Medical 500 mg Branch tablet vitamin 2020-0 Yes 250ug Take 250 Unive rs B-12 3-03 mcg by ity of (VITAMIN 15:51: mouth [place] B-12) 250 53 daily. Medical mcg tablet Branch zinc 2020-0 Yes Take by [facility] sulfate 3-03 mouth. ity of (ZINC-15 15:51: [place] ORAL) 53 Medical Branch ascorbic 2020-0 Yes 500mg Take 500 Univ ers acid, 3-03 mg by ity of vitamin C, 15:51: mouth. [place] (VITAMIN C) 53 Medical 500 mg Branch tablet vitamin 2020-0 Yes 250ug Take 250 Unive rs B-12 3-03 mcg by ity of (VITAMIN 15:51: mouth [place] B-12) 250 53 daily. Medical mcg tablet Branch zinc 2020-0 Yes Take by [facility] sulfate 3-03 mouth. ity of (ZINC-15 15:51: [place] ORAL) 53 Medical Branch ascorbic 2020-0 Yes 500mg Take 500 Univ ers acid, 3-03 mg by ity of vitamin C, 15:51: mouth. [place] (VITAMIN C) 53 Medical 500 mg Branch tablet vitamin 2020-0 Yes 250ug Take 250 Unive rs B-12 3-03 mcg by ity of (VITAMIN 15:51: mouth [place] B-12) 250 53 daily. Medical mcg tablet Branch zinc 2020-0 Yes Take by [facility] sulfate 3-03 mouth. ity of (ZINC-15 15:51: [place] ORAL) 53 Medical Branch ascorbic 2020-0 Yes 500mg Take 500 Univ ers acid, 3-03 mg by ity of vitamin C, 15:51: mouth. [place] (VITAMIN C) 53 Medical 500 mg Branch tablet vitamin 2020-0 Yes 250ug Take 250 Unive rs B-12 [...] mouth ity of tablet 15:25: as needed [place] (wheezing) Medical . Branch tiotropium Yes 18ug Inhale 18 Un oren 18 mcg 3-03 mcg daily. ity of inhalation 15:25: [place] [facility] omeprazole Yes 40mg Take 40 mg U nivers 40 mg 3-03 by mouth ity of capsule 15:25: daily. [place] [facility] predniSONE Yes 10mg Take 10 mg U nivers 10 mg 3-03 by mouth ity of tablet 15:25: as needed [place] (wheezing) Medical . Branch tiotropium Yes 18ug Inhale 18 Un oren 18 mcg 3-03 mcg daily. ity of inhalation 15:25: Medical Branch omeprazole Yes 40mg Take 40 mg U nivers 40 mg 3-03 by mouth ity of capsule 15:25: daily. [place] [facility] predniSONE Yes 10mg Take 10 mg U nivers 10 mg 3-03 by mouth ity of tablet 15:25: as needed [place] (wheezing) Medical . Branch tiotropium Yes 18ug Inhale 18 Un oren 18 mcg 3-03 mcg daily. ity of inhalation 15:25: [place] [facility] omeprazole Yes 40mg Take 40 mg U nivers 40 mg 3-03 by mouth ity of capsule 15:25: daily. [place] [facility] predniSONE Yes 10mg Take 10 mg U nivers 10 mg 3-03 by mouth ity of tablet 15:25: as needed [place] (wheezing) Medical . Branch tiotropium Yes 18ug Inhale 18 Un oren 18 mcg 3-03 mcg daily. ity of inhalation 15:25: [place] [facility] omeprazole 2021-0 Yes 40mg Take 40 mg U nivers 40 mg 3-03 by mouth ity of capsule 15:25: daily. [place] [address] Medical Branch predniSONE 0 Yes 10mg Take 10 mg U nivers 10 mg 3-03 by mouth ity of tablet 15:25: as needed [place] [address] (wheezing) Medical . Branch tiotropium Yes 18ug Inhale 18 Un oren 18 mcg 3-03 mcg daily. ity of inhalation 15:25: [place] [address] Medical Branch omeprazole 0 Yes 40mg Take 40 mg U nivers 40 mg 3-03 by mouth ity of capsule 15:25: daily. [place] [address] Medical Branch predniSONE 0 Yes 10mg Take 10 mg U nivers 10 mg 3-03 by mouth ity of tablet 15:25: as needed [place] [address] (wheezing) Medical . Branch tiotropium Yes 18ug Inhale 18 Un oren 18 mcg 3-03 mcg daily. ity of inhalation 15:25: [address] Branch omeprazole 0 Yes 40mg Take 40 mg U nivers 40 mg 3-03 by mouth ity of capsule 15:25: daily. [place] [address] Medical [place] predniSONE 0 Yes 10mg Take 10 mg U nivers 10 mg 3-03 by mouth ity of tablet 15:25: as needed [place] [address] (wheezing) Medical . Branch tiotropium Yes 18ug Inhale 18 Un oren 18 mcg 3-03 mcg daily. ity of inhalation 15:25: [address] omeprazole 0 Yes 40mg Take 40 mg U nivers 40 mg 3-03 by mouth ity of capsule 15:25: daily. [address] predniSONE 2020-0 Yes 10mg Take 10 mg U nivers 10 mg 3-03 by mouth ity of tablet 15:25: as needed [place] [address] (wheezing) Medical . Branch tiotropium 0 Yes 18ug Inhale 18 Un oren 18 mcg 3-03 mcg daily. ity of inhalation 15:25: [place] [address] Medical Branch omeprazole 2020-0 Yes 40mg Take 40 mg U nivers 40 mg 3-03 by mouth ity of capsule 15:25: daily. [address] predniSONE 2020-0 Yes 10mg Take 10 mg U nivers 10 mg 3-03 by mouth ity of tablet 15:25: as needed [place] [address] (wheezing) Medical . Branch tiotropium 0 Yes 18ug Inhale 18 Un oren 18 mcg 3-03 mcg daily. ity of inhalation 15:25: [place] [address] Medical Branch omeprazole 0 Yes 40mg Take 40 mg U nivers 40 mg 3-03 by mouth ity of capsule 15:25: daily. [address] predniSONE 2020-0 Yes 10mg Take 10 mg U nivers 10 mg 3-03 by mouth ity of tablet 15:25: as needed [place] [address] (wheezing) Medical . Branch tiotropium 0 Yes 18ug Inhale 18 Un oren 18 mcg 3-03 mcg daily. ity of inhalation 15:25: [address] omeprazole 0 Yes 40mg Take 40 mg U nivers 40 mg 3-03 by mouth ity of capsule 15:25: daily. [address] predniSONE 2020-0 Yes 10mg Take 10 mg U nivers 10 mg 3-03 by mouth ity of tablet 15:25: as needed [place] [address] (wheezing) Medical . Branch tiotropium 0 Yes 18ug Inhale 18 Un oren 18 mcg 3-03 mcg daily. ity of inhalation 15:25: [address] omeprazole 0 Yes 40mg Take 40 mg U nivers 40 mg 3-03 by mouth ity of capsule 15:25: daily. [address] predniSONE 2020-0 Yes 10mg Take 10 mg U nivers 10 mg 3-03 by mouth ity of tablet 15:25: as needed [place] [address] (wheezing) Medical . Branch tiotropium 0 Yes 18ug Inhale 18 Un oren 18 mcg 3-03 mcg daily. ity of inhalation 15:25: [address] omeprazole 2020-0 Yes 40mg Take 40 mg U nivers 40 mg 3-03 by mouth ity of capsule 15:25: daily. [address] predniSONE 2020-0 Yes 10mg Take 10 mg U nivers 10 mg 3-03 by mouth ity of tablet 15:25: as needed [place] [address] (wheezing) Medical . Branch tiotropium 2020-0 Yes 18ug Inhale 18 Un oren 18 mcg 3-03 mcg daily. ity of inhalation 15:25: [address] omeprazole 2020-0 Yes 40mg Take 40 mg U nivers 40 mg 3-03 by mouth ity of capsule 15:25: daily. [place] [facility] predniSONE Yes 10mg Take 10 mg U nivers 10 mg 3-03 by mouth ity of tablet 15:25: as needed (wheezing) Medical . Branch tiotropium Yes 18ug Inhale 18 Un oren 18 mcg 3-03 mcg daily. ity of inhalation 15:25: Medical Branch ergocalcife 2020-0 Yes [id number] Take 1 [facility] rol, 8-17 capsule by ity of vitamin d2, 00:00: mouth [place] (VITAMIN 00 weekly. Medical D2) 1,250 Branch mcg (50,000 unit) capsule ergocalcife 2020-0 Yes [id number] Take 1 [facility] rol, 8-17 capsule by ity of vitamin d2, 00:00: mouth [place] (VITAMIN 00 weekly. Medical D2) 1,250 Branch mcg (50,000 unit) capsule ergocalcife 2020-0 Yes [id number] Take 1 [facility] rol, 8-17 capsule by ity of vitamin d2, 00:00: mouth [place] (VITAMIN 00 weekly. Medical D2) 1,250 Branch mcg (50,000 unit) capsule ergocalcife 2020-0 Yes [id number] Take 1 [facility] rol, 8-17 capsule by ity of vitamin d2, 00:00: mouth [place] (VITAMIN 00 weekly. Medical D2) 1,250 Branch mcg (50,000 unit) capsule ergocalcife 2020-0 Yes [id number] Take 1 [facility] rol, 8-17 capsule by ity of vitamin d2, 00:00: mouth [place] (VITAMIN 00 weekly. Medical D2) 1,250 Branch mcg (50,000 unit) capsule ergocalcife 2020-0 Yes [id number] Take 1 [facility] rol, 8-17 capsule by ity of vitamin d2, 00:00: mouth [place] (VITAMIN 00 weekly. Medical D2) 1,250 Branch mcg (50,000 unit) capsule ergocalcife 2020-0 Yes [id number] Take 1 [facility] rol, 8-17 capsule by ity of vitamin d2, 00:00: mouth [place] (VITAMIN 00 weekly. Medical D2) 1,250 Branch mcg (50,000 unit) capsule ergocalcife 2020-0 Yes [id number] Take 1 [facility] rol, 8-17 capsule by ity of vitamin d2, 00:00: mouth [place] (VITAMIN 00 weekly. Medical D2) 1,250 Branch mcg (50,000 unit) capsule ergocalcife 2020-0 Yes [id number] Take 1 [facility] rol, 8-17 capsule by ity of vitamin d2, 00:00: mouth [place] (VITAMIN 00 weekly. Medical D2) 1,250 Branch mcg (50,000 unit) capsule ergocalcife 2020-0 Yes [id number] Take 1 [facility] rol, 8-17 capsule by ity of vitamin d2, 00:00: mouth [place] (VITAMIN 00 weekly. Medical D2) 1,250 Branch mcg (50,000 unit) capsule ergocalcife 2020-0 Yes [id number] Take 1 [facility] rol, 8-17 capsule by ity of vitamin d2, 00:00: mouth [place] (VITAMIN 00 weekly. Medical D2) 1,250 Branch mcg (50,000 unit) capsule ergocalcife 2020-0 Yes [id number] Take 1 Univers rol, 8-17 capsule by ity of vitamin d2, 00:00: mouth [place] (VITAMIN 00 weekly. Medical D2) 1,250 Branch mcg (50,000 unit) capsule ergocalcife 2020-0 Yes [id number] Take 1 [facility] rol, 8-17 capsule by ity of vitamin d2, 00:00: mouth [place] (VITAMIN 00 weekly. Medical D2) 1,250 Branch mcg (50,000 unit) capsule ergocalcife 2020-0 Yes [id number] Take 1 Univers rol, 8-17 capsule by ity of vitamin d2, 00:00: mouth [place] (VITAMIN 00 weekly. Medical D2) 1,250 Branch mcg (50,000 unit) capsule Omeprazole Omeprazole 2019-0 Yes Tom 1 capsule Common 8-16 [facility] 00:[facility]: - [facility] 00 [facility] Omeprazole Omeprazole 2019-0 No 1{capsu BID Omeprazole 40 MG 40 MG 8-16 le} 40 MG 00:00: 00 Omeprazole Omeprazole 2019-0 No 1{capsu BID Omeprazole 40 MG 40 MG 8-16 le} 40 MG 00:00: 00 Omeprazole Omeprazole 2019-0 No 1{capsu BID Omeprazole 40 MG 40 MG 8-16 le} 40 MG 00:00: 00 Omeprazole Omeprazole 2019-0 No 1{capsu BID Omeprazole 40 MG 40 MG 8-16 le} 40 MG 00:00: 00 Omeprazole Omeprazole 2019-0 No 1{capsu BID Omeprazole 40 MG 40 MG 8-16 le} 40 MG 00:00: 00 Omeprazole Omeprazole 2019-0 No 1{capsu BID Omeprazole 40 MG 40 MG 8-16 le} 40 MG 00:00: 00 Omeprazole Omeprazole 2019-0 No 1{capsu BID Omeprazole 40 MG 40 MG 8-16 le} 40 MG 00:00: 00 Omeprazole Omeprazole 2019-0 No 1{capsu BID Omeprazole 40 MG 40 MG 8-16 le} 40 MG 00:00: 00 Omeprazole Omeprazole 2019-0 No 1{capsu BID Omeprazole 40 MG 40 MG 8-16 le} 40 MG 00:00: 00 Omeprazole Omeprazole 2018-0 No 1{capsu BID Omeprazole 40 MG 40 MG 8-16 le} 40 MG 00:00: 00 Omeprazole Omeprazole 2019-0 No 1{capsu BID Omeprazole 40 MG 40 MG 8-16 le} 40 MG 00:00: 00 Omeprazole Omeprazole 2019-0 No 1{capsu BID Omeprazole 40 MG 40 MG 8-16 le} 40 MG 00:00: 00 Omeprazole Omeprazole 2019-0 No 1{capsu BID Omeprazole 40 MG 40 MG 8-16 le} 40 MG 00:00: 00 Omeprazole Omeprazole 2019-0 No 1{capsu BID Omeprazole 40 MG 40 MG 8-16 le} 40 MG 00:00: 00 Omeprazole Omeprazole 2019-0 No 1{capsu BID Omeprazole 40 MG 40 MG 8-16 le} 40 MG 00:00: 00 rosuvastati 2018-0 Yes Crestor 40 Methodi n (CRESTOR) 2-[address] 40 MG 16:34: [facility] tablet 22 l albuterol 0 Yes ProAir HFA [facility] (PROAIR 2-[address] HFA,PROVENT 16:34: mcg/actuat [facility] [place] 22 ion l HFA,VENTOLI aerosol N HFA) 90 inhaler mcg/actuati on inhaler rosuvastati 0 Yes Crestor 40 Methodi n (CRESTOR) 2-[address] 40 MG 16:34: [facility] tablet 22 l albuterol 2019-0 Yes [facility]Air HFA [facility] (PROAIR 2-[address] HFA,PROVENT 16:34: mcg/[place]uat [facility] [place] 22 ion l HFA,VENTOLI aerosol N HFA) 90 inhaler mcg/actuati on inhaler Rosuvastati Rosuvastati Yes Tom 1 tablet Common n Calcium n Calcium [facility] PredniSONE PredniSONE Yes Tom 1 tablet Common [facility] Vitamin B12 Vitamin B12 No Vitamin B12 Vitamin D3 Vitamin D3 No Vitamin D3 Omeprazole Omeprazole No 1{capsu QD Omeprazole 20 MG 20 MG le} 20 MG Vitamin B12 Vitamin B12 No Vitamin B12 Vitamin C Vitamin C No Vitamin C Zinc Zinc No Zinc Probiotic Probiotic No Probiotic 250 -250 BILLION-MG BILLION-MG BILLION-MG Neuriva Neuriva No Neuriva predniSONE predniSONE No 1{table QD predniSONE 10 MG 10 MG t} 10 MG Rosuvastati Rosuvastati No 1{table QD Rosuvastat n Calcium n Calcium t} in Calcium 40 MG 40 MG 40 MG Vitamin D3 Vitamin D3 No Vitamin D3 Omeprazole Omeprazole No 1{capsu QD Omeprazole 20 MG 20 MG le} 20 MG Vitamin B12 Vitamin B12 No Vitamin B12 Vitamin C Vitamin C No Vitamin C Zinc Zinc No Zinc Probiotic Probiotic No Probiotic 250 1-250 BILLION-MG BILLION-MG BILLION-MG Neuriva Neuriva No Neuriva predniSONE predniSONE No 1{table QD predniSONE 10 MG 10 MG t} 10 MG Rosuvastati Rosuvastati No 1{table QD Rosuvastat n Calcium n Calcium t} in Calcium 40 MG 40 MG 40 MG Vitamin D3 Vitamin D3 No Vitamin D3 Omeprazole Omeprazole No 1{capsu QD Omeprazole 20 MG 20 MG le} 20 MG Vitamin B12 Vitamin B12 No Vitamin B12 Vitamin C Vitamin C No Vitamin C Zinc Zinc No Zinc Probiotic Probiotic No Probiotic 250 1250 1-250 BILLION-MG BILLION-MG BILLION-MG Neuriva Neuriva No Neuriva predniSONE predniSONE No 1{table QD predniSONE 10 MG 10 MG t} 10 MG Rosuvastati Rosuvastati No 1{table QD Rosuvastat n Calcium n Calcium t} in Calcium 40 MG 40 MG 40 MG Vitamin D3 Vitamin D3 No Vitamin D3 Vitamin D3 Vitamin D3 No Vitamin D3 Rosuvastati Rosuvastati No 1{table QD Rosuvastat n Calcium n Calcium t} in Calcium 40 MG 40 MG 40 MG Vitamin B12 Vitamin B12 No Vitamin B12 Omeprazole Omeprazole No 1{capsu QD Omeprazole 20 MG 20 MG le} 20 MG Probiotic Probiotic No Probiotic 250 1-250 1-250 BILLION-MG BILLION-MG BILLION-MG predniSONE predniSONE No 1{table QD predniSONE 10 MG 10 MG t} 10 MG Neuriva Neuriva No Neuriva Zinc Zinc No Zinc Vitamin C Vitamin C No Vitamin C Vitamin D3 Vitamin D3 No Vitamin D3 Rosuvastati Rosuvastati No 1{table QD Rosuvastat n Calcium n Calcium t} in Calcium 40 MG 40 MG 40 MG Vitamin B12 Vitamin B12 No Vitamin B12 Omeprazole Omeprazole No 1{capsu QD Omeprazole 20 MG 20 MG le} 20 MG Probiotic Probiotic No Probiotic 250 1-250 1-250 BILLION-MG BILLION-MG BILLION-MG predniSONE predniSONE No 1{table QD predniSONE 10 MG 10 MG t} 10 MG Neuriva Neuriva No Neuriva Zinc Zinc No Zinc Vitamin C Vitamin C No Vitamin C Vitamin D3 Vitamin D3 No Vitamin D3 Rosuvastati Rosuvastati No 1{table QD Rosuvastat n Calcium n Calcium t} in Calcium 40 MG 40 MG 40 MG Vitamin B12 Vitamin B12 No Vitamin B12 Omeprazole Omeprazole No 1{capsu QD Omeprazole 20 MG 20 MG le} 20 MG Probiotic Probiotic No Probiotic 250 1-250 1-250 BILLION-MG BILLION-MG BILLION-MG predniSONE predniSONE No 1{table QD predniSONE 10 MG 10 MG t} 10 MG Neuriva Neuriva No Neuriva Zinc Zinc No Zinc Vitamin C Vitamin C No Vitamin C Vitamin D3 Vitamin D3 No Vitamin D3 Rosuvastati Rosuvastati No 1{table QD Rosuvastat n Calcium n Calcium t} in Calcium 40 MG 40 MG 40 MG Vitamin B12 Vitamin B12 No Vitamin B12 Omeprazole Omeprazole No 1{capsu QD Omeprazole 20 MG 20 MG le} 20 MG Probiotic Probiotic No Probiotic 1250 1-250 1-250 BILLION-MG BILLION-MG BILLION-MG predniSONE predniSONE No 1{table QD predniSONE 10 MG 10 MG t} 10 MG Neuriva Neuriva No Neuriva Zinc Zinc No Zinc Vitamin C Vitamin C No Vitamin C Rosuvastati Rosuvastati No 1{table QD Rosuvastat n Calcium n Calcium t} in Calcium 40 MG 40 MG 40 MG Vitamin B12 Vitamin B12 No Vitamin B12 Probiotic Probiotic No Probiotic 250 250 BILLION-MG BILLION-MG BILLION-MG Zinc Zinc No Zinc Omeprazole Omeprazole No 1{capsu QD Omeprazole 20 MG 20 MG le} 20 MG Vitamin D3 Vitamin D3 No Vitamin D3 Vitamin C Vitamin C No Vitamin C Neuriva Neuriva No Neuriva predniSONE predniSONE No 1{table QD predniSONE 10 MG 10 MG t} 10 MG Rosuvastati Rosuvastati No 1{table QD Rosuvastat n Calcium n Calcium t} in Calcium 40 MG 40 MG 40 MG Vitamin B12 Vitamin B12 No Vitamin B12 Probiotic Probiotic No Probiotic 250 250 BILLION-MG BILLION-MG BILLION-MG Zinc Zinc No Zinc Omeprazole Omeprazole No 1{capsu QD Omeprazole 20 MG 20 MG le} 20 MG Vitamin D3 Vitamin D3 No Vitamin D3 Vitamin C Vitamin C No Vitamin C Neuriva Neuriva No Neuriva predniSONE predniSONE No 1{table QD predniSONE 10 MG 10 MG t} 10 MG Rosuvastati Rosuvastati No 1{table QD Rosuvastat n Calcium n Calcium t} in Calcium 40 MG 40 MG 40 MG Vitamin B12 Vitamin B12 No Vitamin B12 Probiotic Probiotic No Probiotic 250 250 BILLION-MG BILLION-MG BILLION-MG Zinc Zinc No Zinc Omeprazole Omeprazole No 1{capsu QD Omeprazole 20 MG 20 MG le} 20 MG Vitamin D3 Vitamin D3 No Vitamin D3 Vitamin C Vitamin C No Vitamin C Neuriva Neuriva No Neuriva predniSONE predniSONE No 1{table QD predniSONE 10 MG 10 MG t} 10 MG Rosuvastati Rosuvastati No 1{table QD Rosuvastat n Calcium n Calcium t} in Calcium 40 MG 40 MG 40 MG Vitamin B12 Vitamin B12 No Vitamin B12 Probiotic Probiotic No Probiotic 250 250 1250 BILLION-MG BILLION-MG BILLION-MG Zinc Zinc No Zinc Omeprazole Omeprazole No 1{capsu QD Omeprazole 20 MG 20 MG le} 20 MG Vitamin D3 Vitamin D3 No Vitamin D3 Vitamin C Vitamin C No Vitamin C Neuriva Neuriva No Neuriva predniSONE predniSONE No 1{table QD predniSONE 10 MG 10 MG t} 10 MG Rosuvastati Rosuvastati No 1{table QD Rosuvastat n Calcium n Calcium t} in Calcium 40 MG 40 MG 40 MG Vitamin B12 Vitamin B12 No Vitamin B12 Probiotic Probiotic No Probiotic 1-250 1-250 1-250 BILLION-MG BILLION-MG BILLION-MG Zinc Zinc No Zinc Omeprazole Omeprazole No 1{capsu QD Omeprazole 20 MG 20 MG le} 20 MG Vitamin D3 Vitamin D3 No Vitamin D3 Vitamin C Vitamin C No Vitamin C Neuriva Neuriva No Neuriva predniSONE predniSONE No 1{table QD predniSONE 10 MG 10 MG t} 10 MG predniSONE predniSONE No 1{table QD predniSONE 10 MG 10 MG t} 10 MG Vitamin B12 Vitamin B12 No Vitamin B12 Vitamin C Vitamin C No Vitamin C Neuriva Neuriva No Neuriva Vitamin D3 Vitamin D3 No Vitamin D3 Zinc Zinc No Zinc Rosuvastati Rosuvastati No 1{table QD Rosuvastat n Calcium n Calcium t} in Calcium 40 MG 40 MG 40 MG Omeprazole Omeprazole No 1{capsu QD Omeprazole 20 MG 20 MG le} 20 MG Probiotic Probiotic No Probiotic 1-250 1-250 1-250 BILLION-MG BILLION-MG BILLION-MG predniSONE predniSONE No 1{table QD predniSONE 10 MG 10 MG t} 10 MG Vitamin B12 Vitamin B12 No Vitamin B12 Vitamin C Vitamin C No Vitamin C Neuriva Neuriva No Neuriva Vitamin D3 Vitamin D3 No Vitamin D3 Zinc Zinc No Zinc Rosuvastati Rosuvastati No 1{table QD Rosuvastat n Calcium n Calcium t} in Calcium 40 MG 40 MG 40 MG Omeprazole Omeprazole No 1{capsu QD Omeprazole 20 MG 20 MG le} 20 MG Probiotic Probiotic No Probiotic 1-250 1-250 1-250 BILLION-MG BILLION-MG BILLION-MG Probiotic Probiotic No Probiotic 1-250 1-250 1-250 BILLION-MG BILLION-MG BILLION-MG Rosuvastati Rosuvastati No 1{table QD Rosuvastat n Calcium n Calcium t} in Calcium 40 MG 40 MG 40 MG predniSONE predniSONE No 1{table QD predniSONE 10 MG 10 MG t} 10 MG Neuriva Neuriva No Neuriva Omeprazole Omeprazole No 1{capsu QD Omeprazole 20 MG 20 MG le} 20 MG Vitamin C Vitamin C No Vitamin C Zinc Zinc No Zinc Immunizations Ordered Filled Immunization Date Status Comments [facility] e Immunization Name Name Influenza Virus 2022-07-18 Completed Universit y of Vaccine,quad 00:00:00 [facility] [facility] Free Branch 65+ Influenza Virus 2022-07-18 Completed [facility] of Vaccine,quad 00:00:00 [place] [facility] 65+ Influenza Virus 2022-07-18 Completed [facility]it y of Vaccine,quad 00:00:00 [place] [facility] Branch 65+ Influenza Virus 2022-07-18 Completed Universit y of Vaccine,quad 00:00:00 [place] [facility] Free Branch 65+ Influenza Virus 2022-07-18 Completed Universit y of Vaccine,quad 00:00:00 [place] [facility] Free Branch 65+ Influenza Virus 2022-07-18 Completed Universit y of Vaccine,quad 00:00:00 [place] [facility] Im,preserve Free Branch 65+ Influenza Virus 2022-07-18 Completed Universit y of Vaccine,quad 00:00:00 [place] [facility] Im,[facility] Free Branch 65+ Influenza Virus 2022-07-18 Completed Universit y of Vaccine,quad 00:00:00 [place] [facility] Im,preserve Free Branch 65+ Influenza Virus 2022-07-18 Completed Universit y of Vaccine,quad 00:00:00 [place] [facility] Im,preserve Free Branch 65+ Influenza Virus 2022-07-18 Completed Universit y of Vaccine,quad 00:00:00 [place] [facility] Im,preserve Free Branch 65+ Influenza [...] 00:00:00 [place] [facility] PPSV23 (PNEUMOVAX) Branch Influenza High Dose 2020-06-26 Completed Unive rsity of 00:00:00 [facility] Influenza High Dose 2020-06-26 Completed Unive rsity of 00:00:00 [facility] Influenza High Dose 2020-06-26 Completed Unive rsity of 00:00:00 [facility] Influenza High Dose 2020-06-26 Completed Unive rsity of 00:00:00 [facility] Influenza High Dose 2020-06-26 Completed Unive rsity of 00:00:00 [facility] Influenza High Dose 2020-06-26 Completed Unive rsity of 00:00:00 [facility] Influenza High Dose 2020-06-26 Completed Unive rsity of 00:00:00 [facility] Influenza High Dose 2020-06-26 Completed Unive rsity of 00:00:00 [facility] Influenza High Dose 2020-06-26 Completed Unive rsity of 00:00:00 [facility] Influenza High Dose 2020-06-26 Completed [facility] of 00:00:00 [place] [facility] Influ[facility] High Dose 2020-06-26 Completed Unive rsity of 00:00:00 [facility] Influenza High Dose 2020-06-26 Completed Unive rsity of 00:00:00 [facility] Influenza High Dose 2020-06-26 Completed Unive rsity of 00:00:00 [facility] Influenza High Dose 2020-06-26 Completed Unive rsity of 00:00:00 [facility] Influenza High Dose 2019-06-26 Completed Unive rsity of 00:00:00 [facility] Influenza High Dose 2019-06-26 Completed Unive rsity of 00:00:00 [facility] Influenza High Dose 2019-06-26 Completed Unive rsity of 00:00:00 [facility] Influenza High Dose 2019-06-26 Completed Unive rsity of 00:00:00 [facility] Influenza High Dose 2019-06-26 Completed Unive rsity of 00:00:00 [facility] Influenza High Dose 2019-06-26 Completed Unive rsity of 00:00:00 [facility] Influenza High Dose 2019-06-26 Completed Unive rsity of 00:00:00 [facility] Influenza High Dose 2019-06-26 Completed Unive rsity of 00:00:00 [facility] Influenza High Dose 2019-06-26 Completed Unive rsity of 00:00:00 [facility] Influenza High Dose 2019-06-26 Completed Unive rsity of 00:00:00 [facility] Influenza High Dose 2019-06-26 Completed Unive rsity of 00:00:00 [facility] Influenza High Dose 2019-06-26 Completed Unive rsity of 00:00:00 [facility] Influenza High Dose 2019-06-26 Completed Unive rsity of 00:00:00 [facility] Influenza High Dose 2019-06-26 Completed Unive rsity of 00:00:00 [facility] Influenza High Dose 2018-06-26 Completed Unive rsity of 00:00:00 [facility] Influenza High Dose 2018-06-26 Completed Unive rsity of 00:00:00 [facility] Influenza High Dose 2018-06-26 Completed Unive rsity of 00:00:00 [facility] Influenza High Dose 2018-06-26 Completed Unive rsity of 00:00:00 [facility] Influenza High Dose 2018-06-26 Completed Unive rsity of 00:00:00 [facility] Influenza High Dose 2018-06-26 Completed Unive rsity of 00:00:00 [facility] Influenza High Dose 2018-06-26 Completed Unive rsity of 00:00:00 [facility] Influenza High Dose 2018-06-26 Completed Unive rsity of 00:00:00 [facility] Influenza High Dose 2018-06-26 Completed Unive rsity of 00:00:00 [facility] Influenza High Dose 2018-06-26 Completed Unive rsity of 00:00:00 [facility] Influenza High Dose 2018-06-26 Completed Unive rsity of 00:00:00 [facility] Influenza High Dose 2018-06-26 Completed Unive rsity of 00:00:00 [facility] Influenza High Dose 2018-06-26 Completed Unive rsity of 00:00:00 [facility] Influenza High Dose 2018-06-26 Completed Unive rsity of 00:00:00 [facility] Vital Signs Vital Name Observation Time Observation Value Comments Source Systolic blood 2022-10-31 19:55:00 128 mm[Hg] Univer sity of pressure [facility] Diastolic blood 2022-10-31 19:55:00 78 mm[Hg] Unive rsity of pressure [facility] Heart rate 2022-10-31 19:55:00 73 /min [facility]i ty of [facility] Respiratory rate 2022-10-31 19:55:00 16 /min Univ ersity of [facility] Body weight 2022-10-31 19:55:00 58.514 kg [facility]i [facility] BMI 2022-10-31 19:55:00 22.14 kg/m2 [facility] Oxygen saturation in 2022-10-31 19:55:00 95 /min University Arterial blood by [facility] Pulse oximetry Branch Systolic blood 2022-09-28 15:52:00 148 mm[Hg] Univer sity of pressure [facility] Diastolic blood 2022-09-28 15:52:00 83 mm[Hg] Unive rsity of pressure [facility] Heart rate 2022-09-28 15:52:00 78 /min Universi ty of [facility] Body height 2022-09-28 15:52:00 162.6 cm [facility] Body weight 2022-09-28 15:52:00 58.968 kg [facility] BMI 2022-09-28 15:52:00 22.31 kg/m2 [facility] Systolic blood 2022-08-28 21:49:00 134 mm[Hg] Univer [facility]ity [facility] Diastolic blood 2022-08-28 21:49:00 81 mm[Hg] Unive rsity of [facility] Heart rate 2022-08-28 21:49:00 79 /min [facility] Body height 2022-08-28 21:49:00 162.6 cm [facility] Body weight 2022-08-28 21:49:00 58.06 kg [facility] BMI 2022-08-28 21:49:00 21.97 kg/m2 [facility] Oxygen saturation in 2022-08-28 21:49:00 95 /min University of Arterial blood by [employer] [facility] Pulse oximetry Branch Systolic blood 2022-07-18 16:08:00 133 mm[Hg] Univer sity of [facility] Diastolic blood 2022-07-18 16:08:00 81 mm[Hg] Unive rsity of [facility] Heart rate 2022-07-18 16:08:00 72 /min [facility] Respiratory rate 2022-07-18 16:08:00 19 /min Univ ers[facility] Body height 2022-07-18 16:08:00 165.1 cm [facility] Body weight 2022-07-18 16:08:00 59.829 kg [facility] BMI 2022-07-18 16:08:00 21.95 kg/m2 [facility] Oxygen saturation in 2022-07-18 16:08:00 98 /min University of Arterial blood by [place] [employer] [facility] Pulse oximetry Branch Systolic blood 2022-06-29 19:34:00 134 mm[Hg] Univer sity of [facility] Diastolic blood 2022-06-29 19:34:00 76 mm[Hg] Unive rsity of pressure [facility] Heart rate 2022-06-29 19:34:00 72 /min [facility] Body height 2022-06-29 19:34:00 165.1 cm [facility] Body weight 2022-06-29 19:34:00 60.782 kg [facility] BMI 2022-06-29 19:34:00 22.30 kg/m2 [facility] Oxygen saturation in 2022-06-29 19:34:00 96 /min University [facility] blood by [facility] Pulse oximetry Branch height 2022-06-20 13:10:00 62.5 [in_i] [facility] weight 2022-06-20 13:10:00 132 [lb_av] [facility] temperature 2022-06-20 13:10:00 97.9 [degF] [facility] bmi 2022-06-20 13:10:00 23.76 kg/m2 [facility] oximetry 2022-06-20 13:10:00 95 % [facility] respiratory rate 2022-06-20 13:10:00 17 /min Comm on [facility] blood pressure 2022-06-20 13:10:00 136 mm[Hg] Common [facility] - systolic [facility] blood pressure 2022-06-20 13:10:00 80 mm[Hg] [facility] - diastolic [facility] height 2022-06-05 09:00:00 65.0 [in_i] [facility] weight 2022-06-05 09:00:00 131 [lb_av] [facility] bmi 2022-06-05 09:00:00 21.8 kg/m2 [facility] height 2022-05-16 14:20:00 65.0 [in_i] Common [facility] weight 2022-05-16 14:20:00 131 [lb_av] [facility] temperature 2022-05-16 14:20:00 97.6 [degF] [facility] bmi 2022-05-16 14:20:00 21.8 kg/m2 [facility] oximetry 2022-05-16 14:20:00 94 % [facility] respiratory rate 2022-05-16 14:20:00 16 /min Comm on [facility] blood pressure 2022-05-16 14:20:00 133 mm[Hg] Common [facility] - systolic [facility] blood pressure 2022-05-16 14:20:00 64 mm[Hg] [facility] diastolic [facility] height 2022-05-16 14:30:00 65.0 [in_i] [facility] weight 2022-05-16 14:30:00 131 [lb_av] [facility] temperature 2022-05-16 14:30:00 97.6 [degF] [facility] bmi 2022-05-16 14:30:00 21.8 kg/m2 [facility] oximetry 2022-05-16 14:30:00 94 % [facility] respiratory rate 2022-05-16 14:30:00 16 /min Comm on [facility] blood pressure 2022-05-16 14:30:00 133 mm[Hg] [facility] systolic [facility] blood pressure 2022-05-16 14:30:00 64 mm[Hg] [facility] diastolic [facility] Systolic blood 2023-02-26 16:07:00 148 mm[Hg] [facility] pressure Diastolic blood 2023-02-26 16:07:00 65 mm[Hg] [facility] pressure Heart rate 2023-02-26 16:07:00 81 /min [facility] Body temperature 2023-02-26 16:07:00 37 Mari [facility] Respiratory rate 2023-02-26 16:07:00 14 /min [facility] Body height 2023-02-26 16:07:00 165.1 cm [facility] Body weight 2023-02-26 16:07:00 56.337 kg [facility] BMI 2023-02-26 16:07:00 20.67 kg/m2 [facility] Oxygen saturation in 2023-02-26 16:07:00 96 /min [facility] Arterial blood by Pulse oximetry Body height 2021-10-25 17:49:00 165.1 cm [facility] Body weight 2021-10-25 17:49:00 61.236 kg [facility] BMI 2021-10-25 17:49:00 22.47 kg/m2 [facility] Procedures Procedure Date / Time Performing Clinician Source Performed MRI LUMBAR SPINE WO 2023-03-12 20:08:00 Harsh Lomeli [facility] CONTRAST XR CHEST 2 VW 2022-11-22 20:09:34 [facility] Alecia Shirley [facility] PULMONARY FUNCTION TEST 2022-11-22 18:34:09 Denny Alecia B[facility] IR KYPHOPLASTY FST VERT 2022-10-05 16:11:31 Harsh Lomeli [facility] BODY LUMBA COVID-19 QUALITATIVE 2022-10-03 [facility] RT-PCR CBC WITH PLATELET AND 2022-10-03 18:30:00 [facility] DIFFERENTIAL BASIC METABOLIC PANEL 2022-10-03 18:30:00 [facility] PROTHROMBIN TIME WITH INR 2022-10-03 18:30:00 [facility] ESTIMATED GFR 2022-10-03 18:30:00 [facility] CONSENT/REFUSAL FOR 2022-09-28 15:43:17 Doctor Unassigned, [facility] DIAGNOSIS AND TREATMENT [facility] MRI LUMBAR SPINE WO 2022-09-18 19:15:58 Harsh Lomeli [facility] CONTRAST SLEEP STUDY DATA REPORT 2022-07-26 05:01:00 Doctor Unassigned, [facility] FLU 2022-07-18 16:06:31 Reed Almendarez [facility] VACC([id number]),65+YR,0.5 Medica l Branch ML,IM,ADJUVANTED,QUAD(FLU AD) XR SHOULDER 2+ VW RIGHT 2021-10-25 17:49:05 Ariana Perez [facility] MD ARTHROCENTESIS 2021-10-25 17:00:00 Ariana Perez [facility] ASPIR&/INJ MAJOR JT/BURSA W/O US MRI LUMBAR SPINE WO 2021-10-06 18:10:45 Harsh Lomeli [facility] CONTRAST MRI THORACIC SPINE WO 2021-10-06 17:55:34 Harsh Lomeli [facility] CONTRAST Plan of Care Planned Activity Planned Date Details Comments Source Future Scheduled 2023-03-19 SHINGLES VACCINES (1 Met [facility] Test 06:39:07 of 2) [code = SHINGLES VACCINES (1 of 2)] Future Scheduled 2023-03-19 COVID-19 VACCINE (2 - [facility] Test 06:39:07 Booster for Joe series) [code = COVID-19 VACCINE (2 - Booster for Joe series)] Future Scheduled 2023-03-19 65+ [facility]AL [facility] 06:39:07 VACCINE (2 - PCV) [code = 65+ PNEUMOCOCCAL VACCINE (2 - PCV)] Future Scheduled 2023-03-19 INFLUENZA VACCINE Method [facility] Test 06:39:07 [code = INFLUENZA VACCINE] Future Scheduled 2023-03-19 Hepatitis C screening [facility] Test 06:39:07 (procedure) [code = 385423386] Future Scheduled 2023-03-19 BREAST CANCER [facility] Test 06:39:07 SCREENING [code = BREAST CANCER SCREENING] Future Scheduled 2023-03-19 COLONOSCOPY SCREENING [facility] Test 06:39:07 [code = COLONOSCOPY SCREENING] Future Scheduled 2022-06-20 HEPATITIS B VACCINES Met [facility] Test 22:23:42 (1 of 3 - 3-dose series) [code = HEPATITIS B VACCINES (1 of 3 - 3-dose series)] Future Scheduled 2022-06-20 COVID-19 VACCINE (#1) [facility] Test 22:23:42 [code = COVID-19 VACCINE (#1)] Future Scheduled 2022-06-20 Hepatitis C screening [facility] Test 22:23:42 (procedure) [code = 564742983] Future Scheduled 2022-06-20 BREAST CANCER [facility] Test 22:23:42 SCREENING [code = BREAST CANCER SCREENING] Future Scheduled 2022-06-20 COL[facility]OSCOPY [facility] Test 22:23:42 [code = COLONOSCOPY SCREENING] Future Scheduled 2022-06-20 SHINGLES VACCINES (1 Met [facility] Hospital Test 22:23:42 of 2) [code = SHINGLES VACCINES (1 of 2)] Future Scheduled 2022-06-20 65+ PNEUMOCOCCAL [facility] Test 22:23:42 VACCINE (2 - PCV) [code = 65+ PNEUMOCOCCAL VACCINE (2 - PCV)] Future Scheduled 2022-06-20 INFLUENZA VACCINE [facility] Test 22:23:42 [code = INFLUENZA VACCINE] Future Scheduled 2021-11-21 COVID-19 VACCINE (1) [facility] Hospital Test 15:45:20 [code = COVID-19 VACCINE (1)] Future Scheduled 2021-11-21 Hepatitis C screening [facility] Test 15:45:20 (procedure) [code = 082053520] Future Scheduled 2021-11-21 [facility]AST [facility]CER [facility] Test 15:45:20 SCREENING [code = BREAST CANCER SCREENING] Future Scheduled 2021-11-21 COLONOSCOPY SCREENING [facility] Test 15:45:20 [code = COLONOSCOPY SCREENING] Future Scheduled 2021-11-21 SHINGLES VACCINES (#1[facility] Test 15:45:20 [code = SHINGLES VACCINES (#1)] Future Scheduled 2021-11-21 INFLUENZA VACCINE [facility] Hospital Test 15:45:20 [code = INFLUENZA VACCINE] Encounters Start End Encounter Admission Attending Care Care Encounter Source Date/Time Date/Time Type Type Clinicians Facility Department ID 2021-11-15 Outpatient Gonzales, [facility] [id number] Common 14:33:19 Lonnie [facility] 2021-11-15 Outpatient Gonzales, [facility] [id number] Common 13:32:47 Lonnie [facility] 2021-11-15 Outpatient Gonzales, [facility] [id number] Common 13:31:54 Lonnie [facility] 2021-11-15 Outpatient Gonzales, [facility] [id number] Common 13:31:14 Lonnie 12719 [facility] 2021-11-15 Outpatient [facility] [id number] Common 13:17:33 93350 [facility] 2021-08-17 Outpatient R MAE [facility] LIZZ [id number] Univers 18:39:26 LAURA Headley [facility] 2023-03-15 2023-03-15 Telephone Demetrius, 1.2.840.1 [id number] Methodi 00:00:00 00:00:00 Harsh Ayala 97632.1.1 581 s t 3.430.2.7 Hospit a .3.273670 l .8 2023-03-12 2023-03-12 [facility] [place], 1.2.840.1 [id number] Methodi 14:03:45 23:59:00 Encounter Harsh Ayala 17042.1.[address] 3.430.2.7 Hospit a .3.026635 l .8 2023-03-12 2023-03-12 Office [place], 1.2.840.1 [id number] Methodi 11:00:00 13:53:20 Visit Harsh Ayala 62556.1.1 008 s t 3.430.2.7 Hospit a .3.578683 l .8 2023-03-12 2023-03-12 Outpatient [facility] [id number] [place] 00:00:00 00:00:00 HARSH 008 Method i 2023-03-12 2023-03-12 Outpatient [facility] [id number] [place] 00:00:00 00:00:00 HARSH [address] 2023-03-12 2023-03-12 Orders Christiano, 1.2.840.1 [id number] Methodi 00:00:00 00:00:00 Only Susan 97125.1.[address] 3.430.2.7 Hospit a .3.667592 l .8 2023-03-12 2023-03-12 Orders Christiano, 1.2.840.1 [id number] Methodi 00:00:00 00:00:00 Only Susan 87404.1.[address] 3.430.2.7 Hospit a .3.090859 l .8 2023-03-12 2023-03-12 Travel 1.2.840.1 1.2.860.711 [id number] [id number] Methodi 00:00:00 00:00:[address] 3.430.2.7 0.2.7.3.698 Ho spita .3.783765 084.8 l .8 2023-03-12 2023-03-12 Telephone Baldwin, 1.2.840.1 [id number] [id number] Methodi 00:00:00 00:00:00 Alecia [address]ul[address]Shirley [address]1196.1.[address] 3.430.2.7 Hospit a .3.739713 l .8 2023-03-01 2023-03-01 Travel 1.2.840.1 1.2.540.356 [id number] [id number] Methodi 00:00:00 00:00:[address] 3.430.2.7 0.2.7.3.698 Ho spita .3.098730 084.8 l .8 2023-02-26 2023-02-26 Office [place], 1.2.840.1 [id number] Methodi 10:30:00 12:01:43 Visit Alecia Wall 92769.1.[address] 3.430.2.7 Hospit a .3.027452 l .8 2023-02-26 2023-02-26 [facility] [id number] [place] 00:00:00 00:00:[address] 2023-02-26 2023-02-26 Travel 1.2.840.1 1.2.675.056 [id number] [id number] Methodi 00:00:00 00:00:[address] 3.430.2.7 0.2.7.3.698 Ho spita .3.162382 084.8 l .8 2023-01-28 2023-01-28 Outpatient Myesha COMBS [facility] [id number] [facility] 10:30:00 10:30:00 VIRGINIA rajat [facility] 2022-12-27 2022-12-27 Office Denny, 1.2.840.1 [id number] 1451 Methodi 11:15:00 12:17:40 Visit Alecia Wall 92979.1.[address] 3.430.2.7 Hospit a .3.605029 l .8 2022-12-27 2022-12-27 Outpatient DENNY, [facility] [id number] [place] 00:00:00 00:00:00 [address]CIA [address] 2022-12-27 2022-12-27 Travel 1.2.840.1 1.2.555.270 [id number] [id number] Methodi 00:00:00 00:00:[address] 3.430.2.7 0.2.7.3.698 spita .3.902196 084.8 l .8 2022-12-18 2022-12-18 Orders Darshan, 1.2.840.1 [id number] Methodi 00:00:00 00:00:00 Only Cisco Alejandre 12097.1.[address] 3.430.2.7 Hospit a .3.888234 l .8 2022-12-17 2022-12-17 Telephone Demetrius, 1.2.840.1 [id number] 2100 [id number] Methodi 00:00:00 00:00:00 Harsh Ayala 72510.1.1 925 s t 3.430.2.7 Hospit a .3.323549 l .8 2022-11-22 2022-11-22 [facility] Denny, 1.2.840.1 [id number] Methodi 13:54:51 23:59:00 Encounter Alecia Wall 54882.1.[address] 3.430.2.7 Hospit a .3.455536 l .8 2022-11-22 2022-11-22 Clinical Ledbetter, 1.2.840.1 [id number] [id number] Methodi 10:30:00 15:44:21 Support Silvia 27307.1.[address] 3.430.2.7 Hospit a .3.364246 l .8 2022-11-22 2022-11-22 Office Baldwin, 1.2.840.1 [id number] 8244 Methodi 11:45:00 14:41:41 Visit Alecia Wall 80929.1.[address] 3.430.2.7 Hospit a .3.110350 l .8 2022-11-22 2022-11-22 Outpatient DENNY, [facility] [id number] [place] 00:00:00 00:00:[address] 2022-11-22 2022-11-22 [facility] [id number] [place] 00:00:00 00:00:00 ALECIA [address] 2022-11-22 2022-11-22 Outpatient [facility] [id number] 088 [place] 00:00:00 00:00:[address] 2022-11-22 2022-11-22 Orders Asaf, 1.2.840.1 [id number] Methodi 00:00:00 00:00:00 Only Tracy 75626.1.[address] 3.430.2.7 Hospit a .3.982105 l .8 2022-11-22 2022-11-22 Travel 1.2.840.1 1.2.150.137 9853 [id number] Methodi 00:00:00 00:00:[address] 3.430.2.7 0.2.7.3.698 jomar .3.655073 084.8 l .8 2022-11-13 2022-11-13 Office Demetrius, 1.2.840.1 [id number] Methodi 11:15:00 13:44:37 Visit Harsh Ayala 45001.1.1 674 s t 3.430.2.7 Hospit a .3.097846 l .8 2022-11-13 2022-11-13 Outpatient DEMETRIUS [facility] [id number] 968 [place] 00:00:00 00:00:00 HARSH Martin [facility] 2022-11-13 2022-11-13 Orders Darshan, 1.2.840.1 [id number] Methodi 00:00:00 00:00:00 Only Cisco Alejandre 34884.1.[address] 3.430.2.7 Hospit a .3.592239 l .8 2022-11-07 2022-11-07 Travel 1.2.840.1 1.2.335.499 6696 [id number] Methodi 00:00:00 00:00:[address] 3.430.2.7 0.2.7.3.698 Ho spita .3.302038 084.8 l .8 2022-10-31 2022-10-31 Office Tanesha [facility] 1.2.510.403 [id number] [id number] [facility] 14:00:00 14:30:00 Visit Reed [facility]2.7[facility]2.686 Carley BARRETOESSIO [id number] [address] 2022-10-31 2022-10-31 Outpatient R REED ALMENDAREZ [facility] [id number] Univers 14:00:00 14:00:00 REED ALMENDAREZ lobo [facility] 2022-10-10 2022-10-10 Outpatient R KIA ALMENDAREZALBethany [facility] [id number] Univers 10:30:00 10:30:00 REED ALMENDAREZ [facility] 2022-10-05 2022-10-05 [facility] Demetrius, 1.2.840.1 [id number] Methodi 06:50:14 23:59:00 Encounter Harsh Ayala 40983.1.[address] 3.430.2.7 Hospit a .3.848854 l .8 2022-10-05 2022-10-05 Anesthesia Taco Duffy 1.2.840.1 [id number] Methodi 08:46:00 09:59:00 Event Kumar 68470.1.[address] 3.430.2.7 Hospit a .3.164651 l .8 2022-10-05 2022-10-05 Outpatient DEMETRIUS [facility] [id number] 668 [place] 00:00:00 00:00:00 HARSH [address] 2022-10-05 2022-10-05 Travel 1.2.840.1 1.2.749.065 7056 [id number] Methodi 00:00:00 00:00:[address] 3.430.2.7 0.2.7.3.698 Ho spita .3.708905 084.8 l .8 2022-10-03 2022-10-03 Lab Demetrius, 1.2.840.1 [id number] Methodi 12:10:00 12:15:00 Harsh Ayala 54397.1.1 210 s t 3.430.2.7 Hospit a .3.539317 l .8 2022-10-03 2022-10-03 Outpatient DEMETRIUS [facility] [id number] 753 [place] 00:00:00 00:00:00 HARSH [address] 2022-10-03 2022-10-03 Travel 1.2.840.1 1.2.256.280 8397 [id number] Methodi 00:00:00 00:00:[address] 3.430.2.7 0.2.7.3.698 Ho spita .3.087669 084.8 l .8 2022-10-03 2022-10-03 Telephone [place], 1.2.840.1 [id number] [id number] Methodi 00:00:00 00:00:[address] 3.430.2.7 Hospit a .3.686686 l .8 2022-10-02 2022-10-02 Telephone [place], 1.2.840.1 [id number] 2100 [id number] Methodi 00:00:00 00:00:[address] 3.430.2.7 Hospit a .3.914226 l .8 2022-09-28 2022-09-28 Outpatient R DEMARTREMAINE [facility] [id number] Univers 10:00:00 10:13:10 TREMAINE CHAUDHRY ity of [facility] 2022-09-28 2022-09-28 Office Demar [facility] 1.2.840.114 [id number] Univers 10:00:00 10:13:[address] [facility] 350.1.13.10 ity of [place] 4.2.7.2.686 Viraj as TIFFANIE?BLEA [id number] [address] OFFICE [facility] 2022-09-28 2022-09-28 Orders Doctor WILSON 1.2.840.114 [id number] Univers 00:00:00 00:00:00 Only Unassigned, ANKIT 350.1.13.10 ity of [place] [facility] 4.2.7.2.686 Viraj as [id number] [address] 2022-09-27 2022-09-27 Office Demetrius 1.2.840.1 [id number] Methodi 10:45:00 12:41:18 Visit Harsh Ayala 62713.1.1 114 s t 3.430.2.7 Hospit a .3.143902 l .8 2022-09-27 2022-09-27 [facility] [id number] [address] [place] [address] 00:00:00 00:00:00 HARSH [facility] 2022-09-27 2022-09-27 Orders Darshan, 1.2.840.1 [id number] Methodi 00:00:00 00:00:00 Only [facility] Alejandre [address]792.1.[address] 3.430.2.7 Hospit a .3.257899 l .8 2022-09-21 2022-09-21 Travel 1.2.840.1 1.2.971.872 [id number] Methodi 00:00:00 00:00:00 98994.1.1 350.1.13.43 099 3.430.2.7 0.[facility].7.3.698 [facility] 084.8 l .8 2022-09-18 2022-09-18 Outpatient DEMETRIUS [facility] [id number] [address] [place] 00:00:00 00:00:00 HARSH [address] [facility] 2022-09-11 2022-09-11 Office Demetrius 1.2.840.1 [id number] 5138 Methodi 11:00:00 11:27:41 Visit Harsh Ayala 00322.1.1 179 s 3.430.2.7 Hospit a .3.083747 l .8 2022-09-11 2022-09-11 Outpatient DEMETRIUS [facility] [id number] [address] [place] 00:00:00 00:00:00 HARSH 179 Method i 2022-09-05 2022-09-05 Outpatient REED PAN [facility] [id number] Univers 11:00:00 11:00:00 REED ALMENDAREZ [facility] 2022-08-28 2022-08-28 Outpatient TREMAINE WORKMAN [facility] [id number] Univers 15:30:00 16:03:47 TREMAINE CHAUDHRY [facility] 2022-08-28 2022-08-28 Office Virginia Combs [facility] 1.2.840.114 [id number] Univers 15:30:00 16:03:[address] [facility] 350.1.13. 10 ity of [place] 4.2.7.2.686 Viraj as TIFFANIE?BLEA [phone] [address] MEDICAL OFFICE BUILDING 2022-07-26 2022-07-26 Potato Spotter 1, [facility] Sleep Lab Bed [facility] 1. 2.840.114 [id number] Univers 20:00:00 22:30:00 Visit Reed Almendarez 350.1.13. 10 ity of [place] [phone] [facility] [address] 2022-07-26 2022-07-26 Outpatient R DAVIDREED LOWE [facility] [id number] Univers 20:00:00 20:00:00 REED ALMENDAREZ ity [facility] 2022-07-26 2022-07-26 Orders Doctor WILSON 1.2.840.114 [id number] Univers 00:00:00 00:00:00 Only Unassigned, ANKIT 350.1.13.10 ity [facility] 4.2.7.2.686 Viraj [phone] [facility] [address] 2022-07-23 2022-07-23 (TEL) [facility] [id number] Co mmon 00:00:00 00:00:00 [facility] 2022-07-18 2022-07-18 Office Tanesha [facility] 1.2.161.999 [id number] Univers 11:00:00 11:20:00 Visit Reed VILLAFUERTE 350.1.13.10 ity [facility] 4.2.7.2.686 [facility] s [facility] [phone] Ok dical [facility] 2022-07-18 2022-07-18 Outpatient R DAVIDKIA LOWEALBethany [facility] [id number] Univers 11:00:00 11:00:00 KIA ALMENDAREZALBethany [facility] 2022-07-18 2022-07-18 Outpatient R TANESHAKIAALBethany [facility] [id number] Univers 11:00:00 11:00:00 DAVIDKIA LOWEALBethany [facility] 2022-07-18 2022-07-18 (TEL) [facility] [id number] Co mmon 00:00:00 00:00:00 [facility] 2022-06-29 2022-06-29 Outpatient R TREMAINE CHAUDHRY [facility] [id number] Univers 14:40:00 15:17:28 [facility] 2022-06-29 Office Demar [facility] 1.2.840.114 [id number] Univers 14:40:00 15:17:28 Visit [facility] 350.1.13.10 ity of [place] 4.2.7.2.686 Viraj as TIFFANIE?BLEA [phone] [address] MEDICAL OFFICE BUILDING 2022-06-29 2022-06-29 [facility] Al[facility]atamika [facility] 1.2.840.114 [id number] Univers 00:00:00 00:00:00 [facility] 350.1.13.10 ity of [place] 4.2.7.2.686 Viraj as TIFFANIE?BLEA [phone] [address] MEDICAL OFFICE BUILDING 2022-06-26 2022-06-26 Orders Doctor STEVE 1.2.840.114 [id number] Univers 00:00:00 00:00:00 Only Unassigned, ANKIT 350.1.13.10 ity of [place] [facility] 4.2.7.2.686 Viraj as [phone] [address] 2022-06-20 2022-06-20 [facility] [id number] Co mmon 00:00:00 00:00:00 VISIT [facility] PT - CHI LEVEL 4 [facility] 2022-06-05 2022-06-05 OL DIG E/M [facility] [id number] Common 00:00:00 00:00:00 [facility] 11-20 Spir it MIN [facility] 2022-06-05 2022-06-05 (TEL) [facility] [id number] Co mmon 00:00:00 00:00:00 Spirit [facility] 2022-06-04 2022-06-04 (TEL) [facility] [id number] Co mmon 00:00:00 00:00:00 [facility] 2022-06-04 2022-06-04 (TEL) [facility] [id number] Co mmon 00:00:00 00:00:00 [facility] 2022-05-25 2022-05-25 Piedad [facility] 1.2.840.114 [id number] Univers 00:00:00 00:00:00 [facility] 350.1.13.10 ity of [place] 4.2.7.2.686 Viraj as TIFFANIE?BLEA [phone] Ok yulisa [address] OFFICE [facility] 2022-05-16 2022-05-16 OFFICE [facility] [id number] Co mmon 00:00:00 00:00:00 VISIT Spirit ESTAB PT - CHI LEVEL 4 [facility] 2022-05-16 2022-05-16 SUB ANNUAL [facility] [id number] Common 00:00:00 00:00:00 MCR Spirit WELLNESS - CHI VISIT [facility] 2022-04-13 2022-04-13 (TEL) [facility] [id number] Co mmon 00:00:00 00:00:00 [facility] 2022-03-11 2022-03-11 Reftamika Vital [facility] 1.2.840.114 [id number] Univers 00:00:00 00:00:00 Tejal Carvalho [place] 350.1.13.10 ity of [place] [facility] 4.2.7.2.686 [place] ESSFANN[place] [phone] Ok jose[address] 2022-02-27 2022-02-27 (TEL) [facility] [id number] Co mmon 00:00:00 00:00:00 [facility] 2022-02-14 2022-02-14 (TEL) [facility] [id number] Co mmon 00:00:00 00:00:00 Spirit [facility] 2022-01-08 2022-01-08 Ruslan Chaudhry [facility] 1.2.840.114 [id number] Univers 00:00:00 00:00:00 [facility] 350.1.13.10 ity [facility] 4.2.7.2.686 Viraj as TIFFANIE?BLEA [phone] [address] OFFICE [facility] 2021-12-20 2021-12-20 Orders Doctor WILSON 1.2.840.114 [id number] Univers 00:00:00 00:00:00 Only Unassigned, ANKIT 350.1.13.10 ity of [place] [facility] 4.2.7.2.686 Viraj as [phone] [address] 2021-12-18 2021-12-18 Outpatient R TREMAINE CHAUDHRY [facility] [id number] Univers 10:40:00 11:10:32 [facility] 2021-12-13 2021-12-13 Orders Doctor WILSON 1.2.840.114 [id number] Univers 00:00:00 00:00:00 Only Unassigned, ANKIT 350.1.13.10 ity of [place] [facility] 4.2.7.2.686 Viraj as [phone] [address] 2021-10-25 2021-10-25 Office Chris 1.2.840.1 [id number] Methodi 11:00:00 12:33:49 Visit Ariana Luna 46013.1.[address] 3.430.2.7 Hospit a .3.813173 l .8 2021-10-25 2021-10-25 Outpatient [facility] [id number] [address] [place] 00:00:00 00:00:00 ARIANA [address] 2021-10-24 2021-10-24 Orders Dagoberto 1.2.840.1 [id number] Methodi 00:00:00 00:00:00 Only Radha 27937.1.[address] 3.430.2.7 Hospit a .3.025612 l .8 2021-10-19 2021-10-19 Telephone Demar [facility] 1.2.840.114 [id number] Univers 00:00:00 00:00:[address] [facility] 350.1.13.10 ity of [place] 4.2.7.2.686 Viraj as TIFFANIE?BLEA [phone] [address] MEDICAL OFFICE [facility] 2021-10-18 2021-10-18 Telephone Demetrius 1.2.840.1 [id number] [id number] Methodi 10:00:00 10:15:00 Consult Harsh Chan50.1.1 043 s t 3.430.2.7 Hospit a .3.512112 l .8 2021-10-16 2021-10-16 Outpatient TREMAINE WORKMAN [facility] [id number] Univers 09:20:00 10:00:34 TREMAINE CHAUDHRY [facility] 2021-10-16 2021-10-16 Office Demar [facility] 1.2.840.114 [id number] Univers 09:20:00 10:00:[address] [facility] 350.1.13.10 [facility] 4.2.7.2.686 Viraj as TIFFANIE?BLEA [phone] Ok jose[address] OFFICE [facility] 2021-10-16 2021-10-16 Outpatient TREMAINE WORKMAN [facility] [id number] Univers 09:20:00 10:00:34 TREMAINE CHAUDHRY [facility] 2021-10-12 2021-10-12 Orders Fawad, 1.2.840.1 [id number] Methodi 00:00:00 00:00:00 Only Moriah [address]43.1.[address] 3.430.2.7 Hospit a .3.331239 l .8 2021-10-11 2021-10-11 Travel 1.2.840.1 1.2.579.963 3041 [id number] Methodi 00:00:00 00:00:[address] 3.430.2.7 0.2.7.3.698 spita .3.727198 084.8 l .8 2021-10-10 2021-10-10 Outpatient TREMAINE WORKMAN [facility] [id number] Univers 08:29:06 23:59:00 TREMAINE CHAUDHRY [facility] 2021-10-10 2021-10-10 Hospital [facility] 1.2.883.315 [id number] Univers 08:29:06 23:59:00 Encounter Tremaine Erickson [place] 350.1.13.10 [facility] [place] [phone] [facility] [address] 2021-10-06 2021-10-06 Travel 1.2.840.1 1.2.504.567 4586 [id number] Methodi 00:00:00 00:00:[address] 3.430.2.7 0.2.7.3.698 spita .3.902670 084.8 l .8 2021-10-06 2021-10-06 Outpatient DEMETRIUS [facility] [id number] 9[address] [place] 00:00:00 00:00:00 HARSH 576 Method i 2021-10-06 2021-10-06 Outpatient DEMETRIUS [facility] [id number] 956 [place] 00:00:00 00:00:00 HARSH 345 Method i 2021-10-02 2021-10-02 Orders Fawad, 1.2.840.1 [id number] 1711 Methodi 00:00:00 00:00:00 Only Moriah 92845.1.[address] 3.430.2.7 Hospit a .3.610678 l .8 2021-09-28 2021-09-28 Office Demetrius 1.2.840.1 [id number] 6055 Methodi 10:30:00 10:56:04 Visit Harsh Ayala 73042.1.1 503 s t 3.430.2.7 Hospit a .3.324901 l .8 2021-09-25 2021-09-25 Potato Spotter Lab, [facility] 1.2.840.1 14 [id number] [facility] 11:15:27 11:30:[address] [facility] 350.1.13. 10 rajat [facility] 4.2.7.2.686 Viraj as TIFFANIE?BLEA [phone] [address] MEDICAL OFFICE [facility] 2021-09-25 2021-09-25 Outpatient R TREMAINE CHAUDHRY [facility] [id number] Univers 10:00:00 11:15:11 TREMAINE CHAUDHRY ity [facility] 2021-09-25 2021-09-25 Office [facility] 1.2.840.114 [id number] Univers 09:47:18 11:15:11 Visit [facility] 350.1.13.10 ity of [place] 4.2.7.2.686 Viraj as TIFFANIE?BLEA [phone] Ok yulisa MARINA [address] [facility] OFFICE [facility] 2021-09-25 2021-09-25 Orders Doctor STEVE 1.2.840.114 [id number] Univers 00:00:00 00:00:00 Only Unassigned, ANKIT 350.1.13.10 ity of [place] [facility] 4.2.7.2.686 Viraj as [phone] [address] 2021-09-18 2021-09-18 [facility] 1.2.840.114 [id number] Univers 00:00:00 00:00:00 Tejal Maia VILLAFUERTE 350.1.13.10 ity of [place] [facility] 4.2.7.2.686 [place] [phone] [address] 2021-09-18 2021-09-18 Telephone [facility] 1.2.840.114 [id number] Univers 00:00:00 00:00:00 Tejal Maia VILLAFUERTE 350.1.13.10 ity of [place].7.2.[place] [phone] [facility] 044 [facility] 2021-09-13 2021-09-13 Orders Doctor STEVE 1.2.840.114 [id number] Univers 00:00:00 00:00:00 Only Unassigned, ANKIT 350.1.13.10 ity of [place] [facility] 4.2.7.2.686 Viraj as [phone] [address] 2021-09-08 2021-09-08 Telephone [facility] 1.2.840.114 8 [id number] Univers 00:00:00 00:00:00 Tejal A [place] 350.1.13.10 ity of [place].7.2.[place] [phone] [address] 2021-09-06 2021-09-06 Travel 1.2.840.1 1.2.974.944 8010 [id number] Methodi 00:00:00 00:00:[address] 3.430.2.7 0.2.7.3.698 Ho spita .3.464132 084.8 l .8 2021-09-01 2021-09-01 Refill [facility] 1.2.840.114 [id number] Univers 00:00:00 00:00:00 Tejal A [place] 350.1.13.10 ity of [place] 4[place]2.7.2.[place] [phone] [address] 2021-09-01 2021-09-01 Telephone Vital, [facility] 1.2.840.114 8 [id number] Univers 00:00:00 00:00:00 Tejal A [place] 350.1.13.10 ity of [place] [facility] 4.2.7.2.686 [place] [phone] [address] 2021-08-10 2021-08-10 Orders Doctor STEVE 1.2.840.114 [id number] Univers 00:00:00 00:00:00 Only Unassigned, ANKIT 350.1.13.10 ity of [place] [facility] 4.2.7.2.686 Viraj as [phone] [address] 2021-08-04 2021-08-04 (TEL) [facility] [id number] Co mmon 00:00:00 00:00:00 [facility] 2021-07-25 2021-07-25 [facility]phone [facility] 1.2.840.114 [id number] Univers 00:00:00 00:00:00 Tejal A [place] 350.1.13.10 ity of [place].2.[place] [phone] [address] 2021 2021 Telephone [facility] 1.2.840.114 8 [id number] Univers 00:00:00 00:00:00 Tejal Villafuerte 350.1.13.10 ity of [place].2.[place] [phone] Ok dical nal 044 [facility] 2021-07-11 2021-07-11 Orders Doctor STEVE 1.2.840.114 [id number] Univers 00:00:00 00:00:00 Only Unassigned, ANKIT 350.1.13.10 ity of [place] [facility] 4.2.7.2.686 Viraj as [phone] [address] 2021-06-29 2021-06-29 Orders Doctor STEVE 1.2.840.114 [id number] Univers 00:00:00 00:00:00 Only Unassigned, ANKIT 350.1.13.10 ity of [place] [facility]OS[facility] 4.2.7.2.686 Viraj as [phone] [address] 2021-05-18 2021-05-18 Outpatient [facility] [id number] Common 00:00:00 00:00:00 [facility] 2020-12-29 2020-12-29 Outpatient [facility] [id number] Univers 00:00:00 00:00:00 BLANCA ashton [facility] 2020-12-21 2020-12-21 Outpatient Myesha MEJIA [facility] [id number] Univers 15:30:00 15:30:00 BLANCA ashton [facility] 2020-12-19 2020-12-19 Outpatient Myesha VITAL [facility] [id number] Univers 09:00:00 09:00:00 TEJAL earl [facility] 2020-10-26 2020-10-26 Urgent [facility] 1.2.840.114 [id number] 19:10:20 19:41:18 Care [facility] 350.1.13.10 Christo 4.2.7.2.686 Professio [phone] nal 044 [facility] 2020-10-26 2020-10-26 Outpatient R JACQUIE [facility] [id number] Univers 19:00:00 19:00:00 INDIRA earl [facility] 2020-09-20 2020-09-20 Telephone Zahraa [facility] 1.2.840.114 [id number] 00:00:00 00:00:00 Tejal Villafuerte 350.1.13.10 [place] 4.2.7.2.686 Professio [phone] [address] 2020-08-26 2020-08-26 Office [facility] 1.2.840.114 [id number] 10:00:41 11:52:04 Visit Tejal Villafuerte 350.1.13.10 [place] 4.2.7.2.686 Professio [phone] [address] 2020-08-26 2020-08-26 Outpatient [facility] [id number] Univers 10:00:00 10:00:00 TEJAL ity [facility] 2020-05-25 2020-05-25 Outpatient R ZAHRAA [facility] [id number] Univers 09:15:00 09:15:00 TEJAL ity [facility] 2020-05-23 2020-05-23 Outpatient R ZAHRAA [facility] [id number] Univers 09:40:00 09:40:00 TEJAL [facility] 2020-05-19 2020-05-19 Outpatient R MAE [facility] LIZZ [id number] Univers 06:28:41 06:28:41 LAURA Headley [facility] 2020-05-18 2020-05-18 Outpatient R MAE [facility] [id number] Univers 13:30:00 13:30:00 LAURA Headley [facility] 2020-02-09 2020-02-09 Outpatient R MAE [facility] [id number] Univers 12:00:00 12:00:00 LAURA Headlye [facility] 2019-06-17 2019-06-17 Outpatient [facility] [id number] Common 08:45:00 08:45:00 t Specialty/U Sp ilia Specialty rology - [facility] 2019-06-05 2019-06-05 Outpatient Bere Duque 27 [id number] Common 10:44:00 10:44:00 t Specialty/U Sp ilia Specialty rology - [facility] 2019-05-26 2019-05-26 Outpatient Bere Duque 26 [id number] Common 13:30:00 13:30:00 t Specialty/U Sp ilia Specialty rology - [facility] Results Test Description Test Time Test Comments Results Result Comments Source Pulmonary function tests, complete (clinic performed) 11-22 18:34:09 Test Item Value Reference Range Interpretation Comme nts VC Pre (test code = 5374) 1.94 L 2.02-3.36 VC Predicted (test code = 2.69 5372) VC LLN (test code = 5373) 2.02 VC % Pre of Predicted (test 72.1 % code = 5375) TLC Pre (test code = 5416) 4.33 L 3.78-5.76 TLC Predicted (test code = 4.77 5414) TLC LLN (test code = 5415) 3.78 TLC % Pre of Predicted (test 90.6 % code = 5417) RV Pre (test code = 5402) 2.38 L 1.52-2.67 RV Predicted (test code = 2.10 5400) RV LLN (test code = 5401) 1.52 RV % Pre of Predicted (test 113.7 % code = 5403) RV % TLC Pre (test code = 55.12 % 34.87-54.05 5409) RV % TLC Predicted (test code 44 = 5407) RV % TLC LLN (test code = 35 5408) RV % TLC % Pre of Predicted 124.0 % (test code = 5410) R0.5IN Pre (test code = 5514) 3.44 See_Comment [Automated message] The system which generated this result transmitted ref erence range: 3.06 - 3.06 cmH 2O*s/L. The reference range was not used to interpret this result as normal/abnormal . R0.5IN Predicted (test code = 3.06 5512) R0.5IN LLN (test code = 5513) 3.06 R0.5IN % Pre of Predicted 112.3 % (test code = 5515) FRCpl Pre (test code = 5388) 3.03 L 1.84-3.48 FRCpl % Predicted (test code = 2.66 5386) FRCpl % LLN (test code = 5387) 1.84 FRCpl % Pre of Predicted (test 113.9 % code = 5389) ERV Pre (test code = 5381) 0.65 L 0.56-0.56 ERV Predicted (test code = 0.56 5379) ERV LLN (test code = 5380) 0.56 ERV % Pre of Predicted (test 114.7 % code = 5382) IC Pre (test code = 5395) 1.29 L 1.81-1.81 IC Predicted (test code = 1.81 5393) IC LLN (test code = 5394) 1.81 IC % Pre of Predicted (test 71.4 % code = 5396) sR0.5IN Pre (test code = 5521) 11.07 cmH2O*s Raw Pre (test code = 5507) 5.93 See_Comment [Automated message] The system which generated this result transmitted ref erence range: 3.06 - 3.06 cmH 2O*s/L. The reference range was not used to interpret this result as normal/abnormal . Raw Predicted (test code = 3.06 5505) Raw LLN (test code = 5506) 3.06 Raw % Pre of Predicted (test 193.7 % code = 5508) sGaw Predicted (test code = 0.05 See_Comment [Automated message] The system 5528) which generated this result transmitted ref erence range: 0.10 - 0.10 1/( cmH2O*s). The reference range was not used to interpret this result as normal/abnormal . sGaw Predicted (test code = 0.10 5526) sGaw LLN (test code = 5527) 0.10 sGaw % Pre of Predicted (test 51.4 % code = 5529) FEV1 Post (test code = 5349) 1.44 L 1.45-2.58 FEV1 Pre (test code = 5348) 1.15 L 1.45-2.58 FEV1 Predicted (test code = 2.02 5302) FEV1 LLN (test code = 5347) 1.45 FEV1 % Pre of Predicted (test 57.2 % code = 5308) FEV1 % Post of Predicted (test 71.4 % code = 5350) FEV1 % Change (test code = 24.8 % 5351) FVC Post (test code = 5356) 2.34 L 2.02-3.36 FVC Pre (test code = 5354) 1.94 L 2.02-3.36 FVC Predicted (test code = 2.69 5307) FVC LLN (test code = 5353) 2.02 FVC % Pre of Predicted (test 72.1 % code = 5355) FVC % Post of Predicted (test 86.9 % code = 5357) FVC % Change (test code = 20.5 % 5358) FEV1/FVC % Post (test code = 61.47 % 65.08-84.67 5363) FEV1/FVC % Pre (test code = 59.38 % 65.08-84.67 5361) FEV1/FVC % Predicted (test 75 code = 5359) FEV1/FVC % LLN (test code = 65 5360) FEV1/FVC % Pre of Predicted 79.3 % (test code = 5362) FEV1/FVC % Post of Predicted 82.1 % (test code = 5364) FEV1/FVC % Change (test code = 3.5 % 5365) FEF 25-75% Post (test code = 0.57 L/s 0.40-2.80 5549) FEF 25-75% Pre (test code = 0.45 L/s 0.40-2.80 5547) FEF 25-75% Predicted (test 1.60 code = 5546) FEF 25-75% LLN (test code = 0.40 5545) FEF 25-75% % Pre of Predicted 28.1 % (test code = 5548) FEF 25-75% % Post of Predicted 35.5 % (test code = 5550) FEF 25-75% % Change (test code 26.4 % = 5551) PEF Post (test code = 5369) 4.43 L/s 3.43-6.75 PEF Pre (test code = 5367) 4.16 L/s 3.43-6.75 PEF Predicted (test code = 5.09 5310) PEF LLN (test code = 5366) 3.43 PEF % Pre of Predicted (test 81.7 % code = 5368) PEF % Post of Predicted (test 87.1 % code = 5370) PEF % Change (test code = 6.6 % 5371) DLCO Pre (test code = 5423) 10.05 See_Comment [Automated message] The system which generated this result transmitted ref erence range: 13.04 - 26.04 m l/(min*mmHg). The reference range was not used to interpret this result as normal/abnormal . DLCO Predicted (test code = 19.54 5421) DLCO LLN (test code = 5422) 13.04 DLCO % Pre of Predicted (test 51.5 % code = 5424) DL/VA Pre (test code = 5437) 2.85 See_Comment [Automated message] The system which generated this result transmitted ref erence range: 2.94 - 5.57 ml/ (min*mmHg*L). The reference range was not used to interpret this result as normal/abnormal . DL/VA Predicted (test code = 4.26 5435) DL/VA LLN (test code = 5436) 2.94 DL/VA % Pre of Predicted (test 66.9 % code = 5438) VA SB Pre (test code = 5444) 3.53 L 3.80-6.00 VA SB Predicted (test code = 4.90 5442) VA SB LLN (test code = 5443) 3.80 VA SB % Pre of Predicted (test 72.1 % code = 5445) [facility] [id number] 22:40:55 Test Item Value Reference Interpretation Comments Range Interpretation Negative results do (test code = not preclude COVID-19 5416348) infection and should not be used asthe sole basis for treatment or other patient management decisions. Negativeresults must be combined with clinical observations, patient history, andepidemiological information. COVID-19 Not-Detected Not-Detected DISCLAIMER:This qualitative RT-PCR test was result (test code performed using = 28680-1) the Tamra brown SARS-CoV-2 Assa y ([employer]). This assay is available for i n vitro diagnosti c use under Food and Drug Administration (FDA) Emergency Use Authorizati on (EUA) and has been verified f or clinical use by the [facility]. Information on the FDA policy for diagnostic tests for coronavirus disease- 2019 i s available at:https://www. fd a.gov/medical-d ev ices/emergency- si tuations-medica l- devices/faqs-di ag nostic-testing- sa rs-cov-2It is critical that health care providers and patients review the applicable fact sheet(s) i n interpreting or understanding t he test results th at are available upon request.CHEIKHO MURTAZA GY:This assay utilizes ivelisse ts for nucleic aci d extraction, amplification, and real-time reverse kennel technician polymerase rancho n reaction. COVID-19 See link below for PDF Case Number: qualitative RT-PCR Lab Report [id number] PDF (test code = 7070) [facility] [Presence] in Respiratory specimen by SHARIF with probe [id number] 16:40:55 Test Item Value Reference Range Interpretation Comments SARS-CoV-2 (COVID-19) RNA Not detected [Presence] in Respiratory specimen by SHARIF with probe detection (test code = 39494-9) Whether patient is employed in a Unknown healthcare setting (test code = 03445-8) Whether the patient has symptoms Unknown related to condition of interest (test code = 41600-3) Whether the patient was Unknown hospitalized for condition of interest (test code = 33850-5) Whether the patient was admitted Unknown to intensive care unit (ICU) for condition of interest (test code = 37920-5) Whether patient resides in a Unknown congregate care setting (test code = 70369-0) status (test code = Unknown 52658-5) Date and time of symptom onset Unknown (test code = 45492-4) [facility] LDL/HDL [id number] 00:00:00 Test Item Value Reference Range Interpretation Comments Cholesterol, Total 229 mg/dL See_Comment H [Automat ed message] (test code = 2093-3) The s tem which generated this result transmitted ref erence range: 100-199 mg/dL. The reference r debbie was not used to interpret this result as normal/abnor mal. Triglycerides (test 200 mg/dL See_Comment H [Automa tom message] code = 2571-8) The system [facility] generated this result transmitted ref erence range: 0-149 mg /dL. The reference r debbie was not used to interpret this result as normal/abnor mal. HDL Cholesterol (test 56 mg/dL See_Comment [Auto mated message] code = 2085-9) The system [facility] generated this result transmitted ref erence range: >39 mg/d L. The reference range was not used to int erpret this result as normal/abnormal . Comp. Metabolic Panel (14) ([facility])2022-05-16 00:00:00 Test Item Value Reference Range Interpretation Comments Glucose (test code = 94 mg/dL See_Comment [Autom ated message] 7275-7) The system [facility] generated this result transmitted ref erence range: 65-99 mg /dL. The reference r debbie was not used to interpret this result as normal/abnor mal. BUN (test code = 18 mg/dL See_Comment [Automated message] 5534-0) The system [facility] generated this result transmitted ref erence range: 8-27 mg/ dL. The reference r debbie was not used to interpret this result as normal/abnor mal. Creatinine (test code 0.81 mg/dL See_Comment [Auto mated message] = 2160-0) The system [facility] generated this result transmitted ref erence range: 0.57-1.0 0 mg/dL. The refe rence range was not u sed to interpret this result as normal/abnor mal. BUN/Creatinine Ratio 22 12-28 (test code = 3097-3) Sodium (test code = 141 mmol/L See_Comment [Automa tom message] 5391-2) The system [facility] generated this result transmitted ref erence range: 134-144 mmol/L. The ref erence range was not u sed to interpret this result as normal/abnor mal. Potassium (test code = 3.8 mmol/L See_Comment [Aut omated message] 4705-3) The system [facility] generated this result transmitted ref erence range: 3.5-5.2 mmol/L. The ref erence range was not u sed to interpret this result as normal/abnor mal. Chloride (test code = 104 mmol/L See_Comment [Auto mated message] 2074-) The system [facility] generated this result transmitted ref erence range: 96-106 m mol/L. The reference r debbie was not used to interpret this result as normal/abnor mal. Carbon Dioxide, Total 23 mmol/L See_Comment [Auto mated message] (test code = 2027-) The [facility] tem which generated this result transmitted ref erence range: 20-29 mm ol/L. The reference r debbie was not used to interpret this result as normal/abnor mal. Calcium (test code = 9.5 mg/dL See_Comment [Autom ated message] 33282-3) The system [facility] generated this result transmitted ref erence range: 8.7-10.3 mg/dL. The refe rence range was not u sed to interpret this result as normal/abnor mal. Protein, Total (test 6.6 g/dL See_Comment [Autom ated message] code = 2885-2) The system [facility] generated this result transmitted ref erence range: 6.0-8.5 g/dL. The reference r debbie was not used to interpret this result as normal/abnor mal. Albumin (test code = 4.4 g/dL See_Comment [Autom ated message] 1751-7) The system [facility] generated this result transmitted ref erence range: 3.7-4.7 g/dL. The reference r debbie was not used to interpret this result as normal/abnor mal. Globulin, Total (test 2.2 g/dL See_Comment [Auto mated message] code = 69125-9) The system [facility] generated this result transmitted ref erence range: 1.5-4.5 g/dL. The reference r debbie was not used to interpret this result as normal/abnor mal. A/G Ratio (test code = 2.0 1.2-2.2 1759-0) Bilirubin, Total (test <0.2 mg/dL See_Comment [Aut omated message] code = 1975-2) The system wh ich generated this result transmitted ref erence range: 0.0-1.2 mg/dL. The reference r debbie was not used to interpret this result as normal/abnor mal. Alkaline Phosphatase 76 IU/L See_Comment [Autom ated message] (test code = 6768-6) The sys tem which generated this result transmitted ref erence range: 44-121 I U/L. The reference r debbie was not used to interpret this result as normal/abnor mal. AST (SGOT) (test code 16 IU/L See_Comment [Auto mated message] = 1920-8) The system [facility] generated this result transmitted ref erence range: 0-40 IU/ L. The reference range was not used to int erpret this result as normal/abnormal . ALT (SGPT) (test code 10 IU/L See_Comment [Auto mated message] = 1742-6) The system ic h generated this result transmitted ref erence range: 0-32 IU/ L. The reference range was not used to int erpret this result as normal/abnormal . Uric Acid, [id number] 00:00:00 Test Item Value Reference Range Interpretation Comments Uric Acid (test 4.0 mg/dL See_Comment [Automated message] The code = 3084-1) system which generated this result tra nsmitted reference range : 3.1-7.9 mg/dL. The refe rence range was not u sed to interpret this result as normal/abnormal . CBC With Differential/[id number] 00:00:00 Test Item Value Reference Range Interpretation Comments WBC (test code = 6.6 x10E3/uL See_Comment [Automated 2490-2) message] The sy stem which generated this result transmitted reference range : 3.4-10.8 x10E3/ uL. The reference r debbie was not used to interpret this result as normal/abnormal . RBC (test code = 4.01 x10E6/uL See_Comment [Automate d 339-8) message] The sy stem which generated this result transmitted reference range : 3.77-5.28 x10E6 /uL. The reference r debbie was not used to interpret this result as normal/abnormal . Hemoglobin (test code 13.1 g/dL See_Comment [Auto mated = 718-7) message] The sy stem which generated this result transmitted reference range : 11.1-15.9 g/dL. The reference range was not used to interpret this result as normal/abnormal . Hematocrit (test code 39.3 % See_Comment [Auto mated = 4544-3) message] The sy stem which generated this result transmitted reference range : 34.0-46.6 %. Th e reference range was not used to interpret this result as normal/abnormal . MCV (test code = 98 fL See_Comment H [Automated 787-2) message] The sy stem which generated this result transmitted reference range : 79-97 fL. The reference range was not used to interpret this result as normal/abnormal . MCH (test code = 32.7 pg See_Comment [Automated 785-6) message] The sy stem which generated this result transmitted reference range : 26.6-33.0 pg. T he reference range was not used to interpret this result as normal/abnormal . MCHC (test code = 33.3 g/dL See_Comment [Automate d 786-4) message] The sy stem which generated this result transmitted reference range : 31.5-35.7 g/dL. The reference range was not used to interpret this result as normal/abnormal . RDW (test code = 12.3 % See_Comment [Automated 788-0) message] The sy stem which generated this result transmitted reference range : 11.7-15.4 %. Th e reference range was not used to interpret this result as normal/abnormal . Platelets (test code 189 x10E3/uL See_Comment [Autom ated = 777-3) message] The sy stem which generated this result transmitted reference range : 150-450 x10E3/u L. The reference r debbie was not used to interpret this result as normal/abnormal . Neutrophils (test 55 % Not Estab. % code = 770-8) Lymphs (test code = 32 % Not Estab. % 736-9) Monocytes (test code 8 % Not Estab. % = 5905-5) Eos (test code = 3 % Not Estab. % 713-8) Basos (test code = 1 % Not Estab. % 706-2) Immature Cells (test code = UNLOINC) Neutrophils 3.7 x10E3/uL See_Comment [Automated (Absolute) (test code messag e] The system = 751-8) which generated this result transmitted reference range : 1.4-7.0 x10E3/u L. The reference r debbie was not used to interpret this result as normal/abnormal . Lymphs (Absolute) 2.1 x10E3/uL See_Comment [Automate d (test code = 731-0) message] The system which generated this result transmitted reference range : 0.7-3.1 x10E3/u L. The reference r debbie was not used to interpret this result as normal/abnormal . Monocytes(Absolute) 0.6 x10E3/uL See_Comment [Automa tom (test code = 742-7) message] The system which generated this result transmitted reference range : 0.1-0.9 x10E3/u L. The reference r debbie was not used to interpret this result as normal/abnormal . Eos (Absolute) (test 0.2 x10E3/uL See_Comment [Autom ated code = 711-2) message] The s ystem which generated this result transmitted reference range : 0.0-0.4 x10E3/u L. The reference r debbie was not used to interpret this result as normal/abnormal . Baso (Absolute) (test 0.0 x10E3/uL See_Comment [Auto mated code = 704-7) message] The s ystem which generated this result transmitted reference range : 0.0-0.2 x10E3/u L. The reference r debbie was not used to interpret this result as normal/abnormal . Immature Granulocytes 1 % Not Estab. % (test code = 99489-7) Immature Grans (Abs) 0.0 x10E3/uL See_Comment [Autom ated (test code = 51162-5) messag e] The system which generated this result transmitted reference range : 0.0-0.1 x10E3/u L. The reference r debbie was not used to interpret this result as normal/abnormal . NRBC (test code = 68788-5) Hematology Comments: (test code = 47995-5) TSH reflex to [id number] 00:00:00 Test Item Value Reference Range Interpretation Comments TSH (test code = 2.180 uIU/mL See_Comment [Automated message] The 21515-2) system which ge nerated this result tra nsmitted reference range : 0.450-4.500 uIU /mL. The reference range was not used to interpr et this result as normal/abnormal .
[2023-03-19 14:21] LABS: Absolute Lymphocytes (CBC) 2.1 K/uL (0.7-4.9); Hematocrit 39.4 % (36.0-45.0); Lymphocytes % 31.4 % (15.3-44.8); MCV 99.8 fL (80-100); MPV 9.4 fL (7.6-11.3); RBC Red Blood Cell Count 3.95 M/uL (3.86-4.86)
[2023-03-19 14:35] LABS: Albumin 3.9 g/dL (3.4-5.0); Bilirubin Total 0.5 mg/dL (0.2-1.0); Potassium 3.5 mEq/L (3.5-5.1); Protein, Total 7.9 g/dL (6.4-8.2); Thyroid Stimulating Hormone 2.41 uIU/mL (0.358-3.740); Troponin High Sensitivity 7.2 pg/mL (<58.9)
--- NOTE | 2023-03-19 15:30 | RAD REPORT ---
EXAM DESCRIPTION: Rosaura Single View03/19/2023 3:00 pm CLINICAL HISTORY: Shortness of breath COMPARISON: 11/2020 FINDINGS: The lungs appear clear of acute infiltrate. The heart is normal size. Tortuous aorta IMPRESSION: No acute abnormalities displayed
--- NOTE | 2023-03-19 16:16 | ER ---
Nurse's Notes [facility] Name: Shwetha Chirinos Age: 77 yrs Sex: Female : 1945 Arrival Date: 03/19/2023 Time: 13:05 Bed DIS4 Private MD: Lonnie Gonzales Diagnosis: Palpitations;Ventricular premature depolarization Presentation: 03/19 14:04 Onset of symptoms was March 19, 2023. iw 14:04 Acuity: TAYLOR 3 iw 14:08 Chief complaint: Patient states: palpitations started today. Coronavirus screen: At iw this time, the client does not indicate any symptoms associated with coronavirus-19. Ebola Screen: Patient negative for fever greater than or equal to 101.5 degrees Fahrenheit, and additional compatible Ebola Virus Disease symptoms Patient denies exposure to infectious person. Patient denies travel to an Ebola-affected area in the 21 days before illness onset. No symptoms or risks identified at this time. Initial Sepsis Screen: Does the patient meet any 2 criteria? No. Patient's initial sepsis screen is negative. Does the patient have a suspected source of infection? No. Patient's initial sepsis screen is negative. Risk Assessment: Do you want to hurt yourself or someone else? Patient reports no desire to harm self or others. 14:08 Method Of Arrival: Ambulatory Historical: - Allergies: 14:08 Codeine; iw - PMHx: 14:08 COPD; Hypertension; iw - PSHx: 14:08 Cholecystectomy; hysterectomy; iw Vital Signs: 14:08 BP 98 / 79; Pulse 87; Resp 16; Temp 98.6; Pulse Ox 98% on R/A; Pain 0/10; iw 14:08 Pain Scale: Adult iw ED Course: 13:08 Patient arrived in ED. mr 13:08 Lonnie Gonzales, is Private Physician. mr 13:09 Lexa Orta MD is Attending Physician. bs3 14:04 Triage completed. iw 14:04 Inserted saline lock: 20 gauge in right antecubital area, using aseptic technique. iw Blood collected. 14:08 Arm band placed on. iw 15:01 XRAY Chest (1 view) In Process Unspecified. EDMS 16:15 Salomón George MD is Referral Physician. bs3 Administered Medications: No medications were administered Outcome: 16:16 Discharge ordered by MD. [email or web address] 17:16 Patient left the ED. zm Signatures: Dispatcher [employer] JESÚS Mason Lynda Nanci Arambula, Vani Fernandes RN, Brandon, MD MD bs3 Corrections: (The following items were deleted from the chart) 16:46 14:08 Pulse 87bpm; Resp 16bpm; Pulse Ox 98% RA; Temp 98.6F; jw escalera
--- NOTE | 2023-03-19 16:16 | EDPHYS ---
Physician Documentation [facility] Name: Shwetha Chirinos Age: 77 yrs Sex: Female : 1945 Arrival Date: 03/19/2023 Time: 13:05 Bed DIS4 Private MD: [facility] ED Physician Lexa Orta HPI: 03/19 13:17 This 77 yrs old Female presents to ER via Unassigned with complaints of bs3 Palpitations. 13:17 77-year-old female presents with palpitations in addition she feels a funny discomfort bs3 in her throat that feels like she cannot clear out her throat of note she had an endoscopy recently and is scheduled for a swallow study this week. She denies pain, the symptoms have been going on since yesterday, nothing makes them better or worse, no assoc sob, or any other symptoms. . Historical: - Allergies: 14:08 Codeine; iw - PMHx: 14:08 COPD; Hypertension; iw - PSHx: 14:08 Cholecystectomy; hysterectomy; iw ROS: 13:17 Constitutional: Negative for fever, chills bs3 13:17 All other systems are negative. Exam: 13:17 Constitutional: This is a well developed, well nourished patient who is awake, alert, bs3 and in no acute distress but is anxious Head/Face: Normocephalic, atraumatic. Eyes: Pupils equal round and reactive to light, extra-ocular motions intact. Lids and lashes normal. ENT: mmm, no posterior phyarngeal erythema Neck: Trachea midline, no thyromegaly, no neck stiffness Chest/axilla: Normal chest wall appearance and motion. Nontender with no deformity. No lesions are appreciated. Cardiovascular: Regular rate and rhythm with a normal S1 and S2. symmetric pulses in upper extremities Respiratory: Lungs have equal breath sounds bilaterally, clear to auscultation, no respiratory distress Abdomen/GI: Soft, non-tender, no rebound or guarding MS/ Extremity: Pulses equal, no cyanosis. Neurovascular intact. Full, normal range of motion. Neuro: Awake and alert, GCS 15, oriented to person, place, time, and situation. Cranial nerves II-XII grossly intact. Motor strength 5/5 in all extremities. Sensory grossly intact. Psych: Awake, alert, with orientation to person, place and time. Behavior, mood, and affect are within normal limits. Vital Signs: 14:08 BP 98 / 79; Pulse 87; Resp 16; Temp 98.6; Pulse Ox 98% on R/A; Pain 0/10; iw 14:08 Pain Scale: Adult iw MDM: 13:09 Patient medically screened. bs3 13:17 Differential diagnosis: arrythmia, stress disorder, mi. Data reviewed: vital signs, bs3 nurses notes. 15:58 ED course: Labs are negative for acute pathologies patient remained well-appearing here bs3 her initial EKG difficult to interpret we will repeat she is not hypoxic tachypneic or tachycardic she has no leg swelling I do not think this is a pulmonary embolism she has multiple stressors in her life and there may be component of stress. 16:10 ED course: EKG is sinus at [address] elevations or depressions QTc is 453 she does have bs3 frequent PVCs which may be the etiology of her symptoms advised to follow-up with cardiology for possible beta-cameron. 16:15 ED course: Advised outpatient follow-up with her box order person Dr. Sanchez within 1 week.bs3 05 13:16 Order name: CBC with Diff; Complete Time: 14:39 bs3 05 13:16 Order name: Comprehensive Metabolic Panel; Complete Time: 14:39 bs3 05 13:16 Order name: Troponin High Sensitivity; Complete Time: 14:39 bs3 05 13:16 Order name: BNP; Complete Time: 14:39 bs3 05 13:16 Order name: TSH; Complete Time: 14:39 bs3 05 13:16 Order name: XRAY Chest (1 view); Complete Time: 15:48 bs3 03/19 13:16 Order name: EKG - Nurse/Tech; Complete Time: 13:59 bs3 0530 14:39 Order name: EKG - Nurse/Tech; Complete Time: 15:48 bs3 0530 15:49 Order name: EKG - Nurse/Tech; Complete Time: 16:23 bs3 Administered Medications: No medications were administered Disposition Summary: 03/19/23 16:16 Discharge Ordered Location: Home bs3 Problem: new bs3 Symptoms: have improved bs3 Condition: Stable bs3 Diagnosis - Palpitations bs3 - Ventricular premature depolarization bs3 Followup: bs3 - With: Salomón George MD - When: 1 week - Reason: Re-evaluation by your physician Discharge Instructions: - Discharge Summary Sheet bs3 - Palpitations bs3 - Premature Ventricular Contraction bs3 Forms: - Medication Reconciliation Form bs3 - Thank You Letter bs3 - Antibiotic Education bs3 - Prescription Opioid Use bs3 Signatures: Dispatcher [employer] Nanci Locke RN RN Lexa Lorenzo MD MD bs3
[2023-03-19 17:25] VITALS: BP 98/79; TEMP 98.6; O2SAT 98
--- NOTE | 2023-03-20 14:37 | EKG ---
Test Date: 2023-03-19 Test Time: 14:19:39 Rn Advice: CHETAN MEASUREMENT RESULTS: Intervals: Rate: 79 WV: 196 QRSD: 86 QT: 388 QTc: 444 [place]: P: 41 WV: 196 QRS: 38 T: -33 INTERPRETIVE STATEMENTS: Sinus rhythm with frequent premature ventricular complexes Possible Left atrial enlargement Low voltage QRS Septal infarct, age undetermined ST & T wave abnormality, consider inferior ischemia ST & T wave abnormality, consider anterolateral ischemia Abnormal ECG Compared to ECG 02/21/2023 08:39:37 Ventricular premature complex(es) now present Low QRS voltage now present ST (T wave) deviation now present Possible ischemia now present Myocardial infarct finding still present Electronically Signed On 03-20-23 14:36:38 CDT by Rudy Dejesus
--- NOTE | 2023-03-21 12:12 | EKG ---
Test Date: 2023-03-19 Test Time: 16:08:11 [employer] Sales Representative: JOSE MEASUREMENT RESULTS: Intervals: Rate: 81 SD: 196 QRSD: 82 QT: 394 QTc: 457 [place]: P: 50 SD: 196 QRS: 18 T: 9 INTERPRETIVE STATEMENTS: Sinus rhythm with frequent premature ventricular complexes Anterior infarct, age undetermined Abnormal ECG Compared to ECG 03/19/2023 14:19:39 ST (T wave) deviation no longer present Possible ischemia no longer present Myocardial infarct finding still present Electronically Signed On 03-21-23 12:06:26 CDT by Salomón George
== END 2023-03-19 17:16 | disposition home or self-care (01) ==
LOC: ER 13:05
DX: I49.3 Ventricular premature depolarization (principal); I10 Essential (primary) hypertension; J44.9 Chronic obstructive pulmonary disease, unspecified; Z88.5 Allergy status to narcotic agent
CPT/HCPCS: 36415; 71045; 80053; 83880; 84443; 84484; 85025; 93005; 99283

== ENCOUNTER 2023-04-15 12:29 | Inpatient (IN) | payer OTHER, MEDICARE ==
--- OUTSIDE RECORDS SUMMARY | 2023-04-15 12:38 | XMS REPORT | Continuity of Care Document ---
:1945 Author Organization [facility] t Address [address] [place] [address] Care Team Providers Name Role Phone Umair Ferrera MD, Jony Knight Primary Care Physician [phone] Lonnie Gonzales Attending Clinician Unavailable LAURA HARVEY Attending Clinician Unavailable Demetrius VAZ, Harsh Ayala Attending Clinician Ellie Ward MD Attending Clinician Alecia Watts MD Attending Clinician Susan Alvarado MA Attending Clinician Unavailable Cisco Sexton PA-C Attending Clinician VIRGINIA COMBS Attending Clinician Unavailable Silvia Ledbetter Attending Clinician Unavailable Tracy Ron MA Attending Clinician Unavailable Reed Almendarez MD Attending Clinician REED ALMENDAREZ Attending Clinician Unavailable REED ALMENDAREZ Attending Clinician Unavailable Taco Duffy MD Attending Clinician Lesly Duque RN Attending Clinician Unavailable TREMAINE CHAUDHRY Attending Clinician Unavailable TREMAINE CHAUDHRY Attending Clinician Unavailable Tremaine Chaudhry MD Attending Clinician Doctor Unassigned, [place] Attending Clinician Unavailable 1, [facility] Sleep Lab Bed Attending Clinician Unavailable Tejal Vital MD Attending Clinician [phone] Ariana Perez MD Attending Clinician Radha Arenas MA Attending Clinician Unavailable Moriah Celestin MA Attending Clinician Unavailable Lab, Ang - Db Attending Clinician Unavailable BLANCA MEJIA Attending Clinician Unavailable TEJAL VITAL Attending Clinician Unavailable Virginia El Attending Clinician INDIRA DHILLON Attending Clinician Unavailable LAURA HARVEY Admitting Clinician Unavailable ABDOULAYE DAO Admitting Clinician Unavailable TREMAINE CHAUDHRY Admitting Clinician Unavailable Payers Payer Name Policy Type Policy Number Effective Date Expiration Date S abdulkadir MEDICARE PART A [id number] 2012 \T\ B 00:00:00 [place] [id number] 2019 HEALTHCARE 00:00:00 MEDICARE SUPPLEMENT MEDICARE [facility] [id number] 2012 Common 00:00:00 [facility] AARP C1 [id number] 2018 Common 00:00:00 [facility] Problems Condition Condition Condition Status Onset Resolution Last Treating Co mments Source Name Details Category Date Date Treatment Clinician Date COPD COPD Disease Active Methodi exacerbati exacerbati 2 on 00:00: Hospita 00 l [id number] Dementia Problem Commo n without Spirit behavioral - [facility] type [id number] Daytime Problem Comm on 00 somnolence [facility] Crohns Crohn''s Problem Common disease disease Spirit with - [facility], [facility] unspecifie Medica l d Center gastrointe stinal tract location [id number] Age Problem Common related Spirit osteoporos [facility] fracture presence [id number] Chronic Problem Common obstructiv Spirit e - [facility] type Mental Mental Problem Common retardatio deficiency Sp ilia n [facility] [id number] GERD Problem Common without Spirit esophagiti - [facility] s [facility] [id number] Basal cell Problem Co mmon carcinoma Spirit of nose - [facility] [id number] Mixed Problem Common hyperlipid Spirit emia - [facility] [id number] Essential Problem Comm on (primary) Spirit hypertensi - [facility] on [facility] Arthritis Arthritis Disease Active Overview: Univers Formattin ity of g of this [place] note Medical might be Branch different from the original. mainly in hands/fin gers GERD GERD Disease Active Univers (gastroeso (gastroeso it y of phageal phageal [place] reflux reflux Medical disease) disease) Branch Allergies, [...] reaction 00 ofy l s to drug CODEINE DRUG Active Other-Cmnt 0 Unive rs INGREDI 02-09 ity of 00:00: [place] 00 Medical Branch Codeine Codeine Active dizziness Commo n Spirit - [facility] Social History Social Habit Start Date Stop Date Quantity Comments Source Gender identity 2018-10-24 Identifies as Method ist 11:40:10 female gender Hospital (finding) Sexual orientation 2018-10-24 Heterosexual Meth odist 11:40:10 (finding) Hospital History of Tobacco Common Spirit - Use [facility] Sex Assigned At Common Sp ilia - [facility] Alcohol intake 2023-04-12 2023-04-12 Current non-drinker M ethodist 00:00:00 00:00:00 of alcohol Hospital (finding) History of Social 2023-04-12 2023-04-[address] function 00:00:00 00:00:00 Hospital Exposure to 2022-10-21 2022-10-31 Not sure [facility] SARS-CoV-2 (event) 00:00:00 13:47:00 [facility] Cigarettes smoked 2021-10-25 2021-10-[address] current (pack per 00:00:00 00:00:00 Hospita l day) - Reported Cigarette 2021-10-25 2021-10-25 Hindu pack-years 00:00:00 00:00:00 Hospital Tobacco use and 2021-10-25 2021-10-25 Smokeless tobacco Me thodist exposure 00:00:00 00:00:00 non-user Hospital Alcohol Comment 2020-05-23 2020-05-23 seldom Universit y of 00:00:00 00:00:00 [facility] History SDMA 2020-05-23 2020-05-23 99 University o f Alcohol Frequency 00:00:00 00:00:00 [facility] edical Branch History SDMA 2020-05-23 2020-05-23 99 University o f Alcohol Std Drinks 00:00:00 00:00:00 [facility] History SDMA 2020-05-23 2020-05-23 99 [place] o f Alcohol Binge 00:00:00 00:00:00 [facility] [place] Smoking Status Start Date Stop Date Source Ex-smoker 2021-10-25 00:00:00 2021-10-25 [facility]:00:[facility] Ordered Filled Start Stop Current Ordering Indication Dosage Frequency Signature Comments Components Source Medication Medication Date Date Medication? Clinician (SIG) Name Name omeprazole Yes 40mg QD Take 1 Metho di (PriLOSEC) 6-[address] 40 MG 12:05: (40 mg Hospita capsule 51 total) by l mouth daily. acetaminoph Yes QD Take by Met hodi en (TYLENOL 6-[address] ORAL) 12:05: daily. Hospita 51 l fluticasone 2022- Yes QD Inhale 1 M ethodi -umeclidin- 6-20 09-19 inhalation s t vilanter 00:00: 04:59 s once Hospit a (TRELEGY 00 :00 daily for bethany ELLIPTA) 90 days. 200-62.5-25 mcg blister with device omeprazole 2023-0 Yes 40mg QD Take 1 Metho di (PriLOSEC) 5-[address] 40 MG 11:08: (40 mg Hospita capsule 38 total) by l mouth daily. acetaminoph 2023-0 Yes QD Take by Met pineda en (TYLENOL 5-[address] ORAL) 11:08: daily. Hospita 38 l fluticasone 2023-0 2023- No QD Inhale 1 M ethodi furoate-ko 12-2717 inhalation s t anteroL 00:00: 00:00 s daily. Hospi ta (Breo 00 :00 l Ellipta) 200-25 mcg/dose blister with device powder for inhalation levalbutero 2023-0 2023- No 2{puff} Q6H Inhale 2 Methodi l (Xopenex 3- 05-[address] HFA) 45 00:00: 00:00 every 6 Hospit a mcg/actuati 00 :00 (six) l on inhaler hours as needed for wheezing. fluticasone 2023-0 2023- No QD Inhale 1 M ethodi furoate-ko 12-2717 inhalation s t anteroL 00:00: 00:00 s daily. Hospi ta (Breo 00 :00 l Ellipta) 200-25 mcg/dose blister with device powder for inhalation levalbutero 2023-0 2023- No 2{puff} Q6H Inhale 2 Methodi l (Xopenex 3- 05-[address] HFA) 45 00:00: 00:00 every 6 Hospit a mcg/actuati 00 :00 (six) l on inhaler hours as needed for wheezing. cyclobenzap 2023-0 2023- No 5mg Q.[id number] Take 1 Methodi rine 2- 03- [id number] tablet (5 st (FLEXERIL) 00:00: 04:59 3D mg total) H ospita 5 mg tablet 00 :00 by mouth 3 l (three) times a day as needed for muscle spasms for up to 30 days. cyclobenzap 2023-0 2023- No 5mg Q.[id number] Take 1 Methodi rine 2-15 01-31 [id number] tablet (5 st (FLEXERIL) 00:00: 04:59 3D mg total) H ospita 5 mg tablet 00 :00 by mouth 3 l (three) times a day as needed for muscle spasms for up to 30 days. rosuvastati 2022- No Crestor 40 Methodi n (CRESTOR) 11-23 02-[address] 40 MG 15:53: 00:00 Hospita tablet 32 :00 l rosuvastati 2022- No Crestor 40 Methodi n (CRESTOR) 11-23 02-[address] 40 MG 15:53: 00:00 Hospita tablet 32 :00 l albuterol 2022- No ProAir HFA M ethodi (PROAIR 11-[address] HFA,PROVENT 15:53: 00:00 mcg/actuat Hospita [place] 25 :00 ion l HFA,VENTOLI aerosol N HFA) 90 inhaler mcg/actuati on inhaler albuterol 2022- No ProAir HFA M ethodi (PROAIR 11-[address] HFA,PROVENT 15:53: 00:00 mcg/actuat Hospita [place] 25 :00 ion l HFA,VENTOLI aerosol N HFA) 90 inhaler mcg/actuati on inhaler fluticasone 0 Yes QD Inhale 1 Me thodi -umeclidin- 2-[address] vilanter 00:00: s once Hospita (TRELEGY 00 daily. l ELLIPTA) 200-62.5-25 mcg blister with device fluticasone 2022-0 Yes QD Inhale 1 Me thodi -umeclidin- 2-[address] vilanter 00:00: s once Hospita (TRELEGY 00 daily. l ELLIPTA) 200-62.5-25 mcg blister with device ipratropium 0 2022- No [id number] 3mL Q.25D Take 3 mL Methodi -albuteroL 11-22 03-[address] (DUO-NEB) 00:00: 05:59 nebulizati H ospita 0.5-2.5 00 :00 on 4 l mg/3 mL (four) nebulizer times a day for 30 days. ipratropium 0 2022- No [id number] 3mL Q.25D Take 3 mL Methodi -albuteroL 11-[address] ([employer]) 00:00: 05:59 nebulizati H ospita 0.5-2.5 00 :00 on 4 l mg/3 mL (four) nebulizer times a day for 30 days. ipratropium 2022-0 2022- No [id number] 3mL Q.25D Take 3 mL Methodi -albuteroL 11-[address] ([employer]) 00:00: 00:00 nebulizati H ospita 0.5-2.5 00 :00 on 4 l mg/3 mL (four) nebulizer times a day. ipratropium 2022-0 2022- No [id number] 3mL Q.25D Take 3 mL Methodi -albuteroL 11-[address] ([employer]) 00:00: 00:00 nebulizati H ospita 0.5-2.5 00 :00 on 4 l mg/3 mL (four) nebulizer times a day. traMADoL 2022- No [id number] 50mg Q4H Take 1 Metho di (ULTRAM) 50 11-13-03 tablet (50 s t mg tablet 00:00: 00:00 mg total) Ho spita 00 :00 by mouth l every 4 (four) hours as needed for moderate pain for up to 20 days .acute pain. traMADoL 2022- No [id number] 50mg Q4H Take 1 Metho di (ULTRAM) 50 11-13-03 tablet (50 s t mg tablet 00:00: 00:00 mg total) Ho spita 00 :00 by mouth l every 4 (four) hours as needed for moderate pain for up to 20 days .acute pain. donepeziL 2021-10 Yes Methodi (ARICEPT) 11-29 st 10 MG 00:00: Hospita tablet 00 l donepeziL 2021-10 Yes Methodi (ARICEPT) 11-29 st 10 MG 00:00: Hospita tablet 00 l donepeziL 2021-10 Yes [id number] 10mg Take 1 Un oren (ARICEPT) 11-29 tablet by ity o f 10 mg 00:00: mouth at [place] tablet 00 bedtime. Medical Branch donepeziL 2021-10 Yes [id number] 10mg Take 1 Un oren (ARICEPT) 2-09 tablet by ity o f 10 mg 00:00: mouth at [place] tablet 00 bedtime. Medical Branch donepeziL 2021-10 Yes [id number] 10mg Take 1 Un oren (ARICEPT) 2-09 tablet by ity o f 10 mg 00:00: mouth at [place] tablet 00 bedtime. Medical Branch donepeziL 2021-10 Yes [id number] 10mg Take 1 Un oren (ARICEPT) 2-09 tablet by ity o f 10 mg 00:00: mouth at [place] tablet 00 bedtime. Medical Branch donepeziL 5 2021-10 Yes [id number] 5mg Take 1 Univers mg tablet 1-08 tablet by ity o f 00:00: mouth at [place] 00 bedtime. Medical Branch donepeziL 5 2021-10 Yes [id number] 5mg Take 1 Univers mg tablet 1-08 tablet by ity o f 00:00: mouth at [place] 00 bedtime. Medical Branch donepeziL 5 2021-10 Yes [id number] 5mg Take 1 Univers mg tablet 1-08 tablet by ity o f 00:00: mouth at [place] 00 bedtime. Medical Branch donepeziL 5 2021-10- No [id number] 5mg Take 1 Univers mg tablet -06 01- tablet by ity of 00:00: 00:00 mouth at [place] 00 :00 bedtime. Medical Branch donepeziL 5 2021-10- No [id number] 5mg Take 1 Univers mg tablet 10-28-09 tablet by ity of 00:00: 00:00 mouth at [place] 00 :00 bedtime. Medical Branch rivastigmin Yes [id number] 1{patch Apply 1 Univers e 4.6 mg/24 06-29 } Patch to [place]y of hour patch 00:[place] 00 the Medical morning. Branch rivastigmin Yes [id number] 1{patch Apply 1 Univers e 9.5 mg/24 06-29 } Patch to [place]y of hour patch 00:00: [place] 00 the Medical morning. Branch Use this script when the rivastigmi ne 4.6 mg patch is used up. rivastigmin 2021- Yes [id number] 1{patch Apply 1 Univers e 4.6 mg/24 9-09 } Patch to ity of hour patch 00:00: [place] the morning. [place] rivastigmin Yes [id number] 1{patch Apply 1 Univers e 9.5 mg/24 909 } Patch to ity of hour patch 00:00: [place] the morning. Branch Use this script when the rivastigmi ne 4.6 mg patch is used up. rivastigmin 2021- Yes [id number] 1{patch Apply 1 Univers e 4.6 mg/24 909 } Patch to ity of hour patch 00:00: [place] the morning. [place] rivastigmin Yes [id number] 1{patch Apply 1 Univers e 9.5 mg/24 9 } Patch to ity of hour patch 00:00: [place] the morning. Branch Use this script when the rivastigmi ne 4.6 mg patch is used up. rivastigmin 2021- Yes [id number] 1{patch Apply 1 Univers e 4.6 mg/24 909 } Patch to ity of hour patch 00:00: [place] the morning. [place] rivastigmin Yes [id number] 1{patch Apply 1 Univers e 9.5 mg/24 9 } Patch to ity of hour patch 00:00: [place] the morning. Branch Use this script when the rivastigmi ne 4.6 mg patch is used up. rivastigmin Yes [id number] 1{patch Apply 1 Univers e 4.6 mg/24 909 } Patch to ity of hour patch 00:00: [place] 00 the morning. [place] rivastigmin 2021- Yes [id number] 1{patch Apply 1 Univers e 9.5 mg/24 909 } Patch to ity of hour patch 00:00: [place] 00 the morning. [place] Use this script when the rivastigmi ne 4.6 mg patch is used up. rivastigmin Yes [id number] 1{patch Apply 1 Univers e 4.6 mg/24 06-29 } Patch to ity of hour patch 00:00: [place] 00 the Medical morning. [place] rivastigmin Yes [id number] 1{patch Apply 1 Univers e 9.5 mg/24 06-29 } Patch to ity of hour patch 00:00: [place] 00 the Medical morning. Tony Use this script when the rivastigmi ne 4.6 mg patch is used up. rivastigmin Yes [id number] 1{patch Apply 1 Univers e 4.6 mg/24 06-29 } Patch to ity of hour patch 00:00: [place] 00 the Medical morning. [place] rivastigmin Yes [id number] 1{patch Apply 1 Univers e 9.5 mg/24 06-29 } Patch to ity of hour patch 00:00: [place] 00 the Medical morning. Tony Use this script when the rivastigmi ne 4.6 mg patch is used up. rivastigmin 2021- No [id number] 1{patch Apply 1 Univers e 4.6 mg/24 06-29 } Patch to ity of hour patch 00:00: 00:00 skin in [place] 00 :00 the Medical morning. Tony rivastigmin 2021- No [id number] 1{patch Apply 1 Univers e 9.5 mg/24 06-29 } Patch to ity of hour patch 00:00: 00:00 skin in [place] 00 :00 the Medical morning. Tony Use this script when the rivastigmi ne 4.6 mg patch is used up. rivastigmin 2021- No [id number] 1{patch Apply 1 Univers e 4.6 mg/24 06-29 } Patch to ity of hour patch 00:00: 00:00 skin in [place] 00 :00 the Medical morning. Tony rivastigmin 2021- No [id number] 1{patch Apply 1 Univers e 9.5 mg/24 06-29 } Patch to ity of hour patch 00:00: 00:00 skin in [place] 00 :00 the Medical morning. Branch Use this script when the rivastigmi ne 4.6 mg patch is used up. Zofran 4 MG Zofran 4 MG 2-0 No BID Zofran 4 8-16 MG 00:00: 00 Zofran 4 MG Zofran 4 MG 2-0 No BID Zofran 4 8-16 MG 00:00: 00 Zofran 4 MG Zofran 4 MG 2-0 No BID Zofran 4 8-16 MG 00:00: 00 Zofran 4 MG Zofran 4 MG 2022-0 No BID Zofran 4 8-16 MG 00:00: 00 Zofran 4 MG Zofran 4 MG 2-0 No BID Zofran 4 8-16 MG 00:00: 00 Zofran 4 MG Zofran 4 MG 2022-0 No BID Zofran 4 8-16 MG 00:00: 00 Zofran 4 MG Zofran 4 MG 2-0 No BID Zofran 4 8-16 MG 00:00: 00 Zofran 4 MG Zofran 4 MG 2-0 No BID Zofran 4 8-16 MG 00:00: 00 Zofran 4 MG Zofran 4 MG 2-0 No BID Zofran 4 8-16 MG 00:00: 00 rivastigmin 2021-2021- No 1{patch Apply 1 Univers e 4.6 mg/05-25 } Patch to ity of hour patch 00:00: 00:00 skin in [place] 00 :00 the Medical morning. Branch rivastigmin 2021- No 1{patch Apply 1 Univers e 4.6 mg/05-25 } Patch to ity of hour patch [...] 2-28 mg tablet ity o f 10:51: [address] cyclobenza Univers rine 10 mg 2-28 shanell 10 ity o f tablet 10:51: mg tablet [place] 24 Take 1 Medical tablet 3 Branch times a day by oral route as directed for 10 days. diazePAM 2 Yes diazepam 2 U nivers mg tablet 2-28 mg tablet ity o f 10:51: [address] cyclobenza Univers rine 10 mg 2-28 shanell 10 ity o f tablet 10:51: mg tablet [place] 24 Take 1 Medical tablet 3 Branch times a day by oral route as directed for 10 days. diazePAM Yes diazepam 2 U nivers mg tablet 2-28 mg tablet ity o f 10:51: [address] cyclobenza Univers rine 10 mg 2-28 shanell 10 ity o f tablet 10:51: mg tablet [place] 24 Take 1 Medical tablet 3 Branch times a day by oral route as directed for 10 days. diazePAM Yes diazepam 2 U nivers mg tablet 2-28 mg tablet ity o f 10:51: [address] cyclobenza Univers rine 10 mg 2-28 shanell 10 ity o f tablet 10:51: mg tablet [place] 24 Take 1 Medical tablet 3 Branch times a day by oral route as directed for 10 days. diazePAM Yes diazepam 2 U nivers mg tablet 2-28 mg tablet ity o f 10:51: [address] cyclobenza Univers rine 10 mg 2-28 shanell 10 ity o f tablet 10:51: mg tablet [place] 24 Take 1 Medical tablet 3 Branch times a day by oral route as directed for 10 days. diazePAM 2 Yes diazepam 2 U nivers mg tablet 2-28 mg tablet ity o f 10:51: [address] cyclobenza Univers rine 10 mg 2-28 shanell 10 ity o f tablet 10:51: mg tablet [place] 24 Take 1 Medical tablet 3 Branch times a day by oral route as directed for 10 days. diazePAM 2 Yes diazepam 2 U nivers mg tablet 2-28 mg tablet ity o f 10:51: [address] cyclobenzap Yes cyclobenza Univers rine 10 mg 2-28 shanell 10 ity o f tablet 10:51: mg tablet [place] 24 Take 1 Medical tablet 3 Branch times a day by oral route as directed for 10 days. diazePAM 2 Yes diazepam 2 U nivers mg tablet 2-28 mg tablet ity o f 10:51: [address] cyclobenza Univers rine 10 mg 2-28 shanell 10 ity o f tablet 10:51: mg tablet [place] 24 Take 1 Medical tablet 3 Branch times a day by oral route as directed for 10 days. diazePAM 2 Yes diazepam 2 U nivers mg tablet 2-28 mg tablet ity o f 10:51: [address] cyclobenza Univers rine 10 mg 2-28 shanell 10 ity o f tablet 10:51: mg tablet [place] 24 Take 1 Medical tablet 3 Branch times a day by oral route as directed for 10 days. diazePAM Yes diazepam 2 U nivers mg tablet 2-28 mg tablet ity o f 10:51: [address] cyclobenza Univers rine 10 mg 2-28 shanell 10 ity o f tablet 10:51: mg tablet [place] 24 Take 1 Medical tablet 3 Branch times a day by oral route as directed for 10 days. diazePAM 2 Yes diazepam 2 U nivers mg tablet 2-28 mg tablet ity o f 10:51: [address] cyclobenzap Yes cyclobenza Univers rine 10 mg 2-28 shanell 10 ity o f tablet 10:51: mg tablet [place] 24 Take 1 Medical tablet 3 Branch times a day by oral route as directed for 10 days. diazePAM 2 Yes diazepam 2 U nivers mg tablet 2-28 mg tablet ity o f 10:51: [address] cyclobenzap Yes cyclobenza Univers rine 10 mg 2-28 shanell 10 ity o f tablet 10:51: mg tablet [place] 24 Take 1 Medical tablet 3 Branch times a day by oral route as directed for 10 days. diazePAM 2 Yes diazepam 2 U nivers mg tablet 2-28 mg tablet ity o f 10:51: [place] 24 Medical Branch donepeziL 5 2021-0 2022- No [id number] 5mg Take 1 Univers mg tablet 2-28 - tablet by ity of 00:00: 00:00 mouth at [place] 00 :00 bedtime. Medical When Branch script runs out, call in for another increase. donepeziL 5 2021- No [id number] 5mg Take 1 Univers mg tablet 2-18 07- tablet by ity of 00:00: 00:00 mouth [...] by mouth ity of tablet 00:00: daily. [facility] meloxicam 2020-10 Yes 15mg Take 15 mg Un oren 15 mg 2-28 by mouth ity of tablet 00:00: daily. [facility] meloxicam 2020-10 Yes 15mg Take 15 mg Un oren 15 mg 2-28 by mouth ity of tablet 00:00: daily. [facility] meloxicam 2020-10 Yes 15mg Take 15 mg Un oren 15 mg 2-28 by mouth ity of tablet 00:00: daily. [facility] meloxicam 2020-10 Yes 15mg Take 15 mg Un oren 15 mg 2-28 by mouth ity of tablet 00:00: daily. [facility] meloxicam 2020-10 Yes 15mg Take 15 mg Un oren 15 mg 2-28 by mouth ity of tablet 00:00: daily. [facility] meloxicam 2020-10 Yes 15mg Take 15 mg Un oren 15 mg 2-28 by mouth ity of tablet 00:00: daily. [facility] meloxicam 2020-10 Yes 15mg Take 15 mg Un oren 15 mg 2-28 by mouth ity of tablet 00:00: daily. [facility] meloxicam 2020-10 Yes 15mg Take 15 mg Un oren 15 mg 2-28 by mouth ity of tablet 00:00: daily. [facility] meloxicam 2020-10 Yes 15mg Take 15 mg Un oren 15 mg 2-28 by mouth ity of tablet 00:00: daily. [facility] meloxicam 2020-10 Yes 15mg Take 15 mg Un oren 15 mg 2-28 by mouth ity of tablet 00:00: daily. [facility] meloxicam 2020-10 Yes 15mg Take 15 mg Un oren 15 mg 2-28 by mouth ity of tablet 00:00: daily. [facility] meloxicam 2020-10 Yes 15mg Take 15 mg Un oren 15 mg 2-28 by mouth ity of tablet 00:00: daily. [facility] meloxicam 2020-10 Yes 15mg Take 15 mg Un oren 15 mg 2-28 by mouth ity of tablet 00:00: daily. [facility] solifenacin 2021-1 2021- No [facility] M ethodi (VESICARE) 11-29 10 [...] QD Take 40 mg M ethodi (PriLOSEC) 11-[address] 40 MG 10:46: daily. Hospita capsule 02 l omeprazole 2020-10 Yes 40mg QD Take 40 mg M ethodi (PriLOSEC) 11-[address] 40 MG 10:46: daily. Hospita capsule 02 l cyclobenzap 2020-10- No cyclobenza Methodi rine 11-[address] (FLEXERIL) 10:45: 00:00 mg tablet H ospita 10 mg 14 :00 Take 1 l tablet tablet 3 times a day by oral route as directed for 10 days. cyclobenzap 2020-10- No cyclobenza Methodi rine 11-[address] (FLEXERIL) 10:45: 00:00 mg tablet H ospita 10 mg 14 :00 Take 1 l tablet tablet 3 times a day by oral route as directed for 10 days. IPRATROPIUM 2020-10 Yes [id number] INHALE 1 Univers 0.02 % 1-13 VIAL(2.5 ity of nebulizer 00:00: ML) VIA [place] [id number] NEBULIZER Medica l TWICE Branch DAILY NEEDED FOR WHEEZING OR SHORTNESS OF BREATH IPRATROPIUM 2020-10 Yes [id number] INHALE 1 Univers 0.02 % 1-13 VIAL(2.5 ity of nebulizer 00:00: ML) VIA [place] solution 00 NEBULIZER Medica l TWICE Branch DAILY NEEDED FOR WHEEZING OR SHORTNESS OF BREATH IPRATROPIUM 2020-10 Yes [id number] INHALE 1 Univers 0.02 % 1-13 VIAL(2.5 ity of nebulizer 00:00: ML) VIA [place] solution 00 NEBULIZER Medica l TWICE Branch DAILY NEEDED FOR WHEEZING OR SHORTNESS OF BREATH IPRATROPIUM 2020-10 Yes [id number] INHALE 1 Univers 0.02 % 1-13 VIAL(2.5 ity of nebulizer 00:00: ML) VIA [place] solution 00 NEBULIZER Medica l TWICE Branch DAILY NEEDED FOR WHEEZING OR SHORTNESS OF BREATH IPRATROPIUM 2020-10 Yes [id number] INHALE 1 Univers 0.02 % 1-13 VIAL(2.5 ity of nebulizer 00:00: ML) VIA [place] solution 00 NEBULIZER Medica l TWICE Branch DAILY NEEDED FOR WHEEZING OR SHORTNESS OF BREATH IPRATROPIUM 2020-10 Yes [id number] INHALE 1 Univers 0.02 % 1-13 VIAL(2.5 ity of nebulizer 00:00: ML) VIA [place] solution 00 NEBULIZER Medica l TWICE Branch DAILY NEEDED FOR WHEEZING OR SHORTNESS OF BREATH IPRATROPIUM 2020-10 Yes [id number] INHALE 1 Univers 0.02 % 1-13 VIAL(2.5 ity of nebulizer 00:00: ML) VIA [place] solution 00 NEBULIZER Medica l TWICE Branch DAILY NEEDED FOR WHEEZING OR SHORTNESS OF BREATH IPRATROPIUM 2020-10 Yes [id number] INHALE 1 Univers 0.02 % 1-13 VIAL(2.5 ity of nebulizer 00:00: ML) VIA [place] solution 00 NEBULIZER Medica l TWICE Branch DAILY NEEDED FOR WHEEZING OR SHORTNESS OF BREATH IPRATROPIUM 2020-10 Yes [id number] INHALE 1 Univers 0.02 % 1-13 VIAL(2.5 ity of nebulizer 00:00: ML) VIA [place] solution 00 NEBULIZER Medica l TWICE Branch DAILY NEEDED FOR WHEEZING OR SHORTNESS OF BREATH IPRATROPIUM 2020-10 Yes [id number] INHALE 1 Univers 0.02 % 1-13 VIAL(2.5 ity of nebulizer 00:00: ML) VIA [place] solution 00 NEBULIZER Medica l TWICE Branch DAILY NEEDED FOR WHEEZING OR SHORTNESS OF BREATH IPRATROPIUM 2020-10 Yes [id number] INHALE 1 Univers 0.02 % 1-13 VIAL(2.5 ity of nebulizer 00:00: ML) VIA [place] solution NEBULIZER Medica l TWICE Branch DAILY NEEDED FOR WHEEZING OR SHORTNESS OF BREATH IPRATROPIUM 2020-10 Yes [id number] INHALE 1 Univers 0.02 % 1-13 VIAL(2.5 ity of nebulizer 00:00: ML) VIA [place] solution NEBULIZER Medica l TWICE Branch DAILY NEEDED FOR WHEEZING OR SHORTNESS OF BREATH IPRATROPIUM 2020-10 Yes [id number] INHALE 1 Univers 0.02 % 1-13 VIAL(2.5 ity of nebulizer 00:00: ML) VIA [place] solution NEBULIZER Medica l TWICE Branch DAILY NEEDED FOR WHEEZING OR SHORTNESS OF BREATH IPRATROPIUM 2020-10 Yes [id number] INHALE 1 Univers 0.02 % 1-13 VIAL(2.5 ity of nebulizer 00:00: ML) VIA [place] solution NEBULIZER Medica l TWICE Branch DAILY NEEDED FOR WHEEZING OR SHORTNESS OF BREATH ascorbic 2020-0 Yes 500mg Take 500 Univ ers acid, 3-03 mg by ity of vitamin C, 15:51: mouth. [place] (VITAMIN C) 53 Medical 500 mg Branch [...] by ity of vitamin C, 15:51: mouth. [place] (VITAMIN C) 53 Medical 500 mg Branch tablet vitamin 2020-0 Yes 250ug Take 250 Unive rs B-12 3-03 mcg by ity of (VITAMIN 15:51: mouth [place] B-12) 250 53 daily. Medical mcg tablet Branch zinc 2020-0 Yes Take by Univers sulfate 3-03 mouth. ity of (ZINC-15 15:51: [place] ORAL) 53 Medical Branch ascorbic 2021-0 Yes 500mg Take 500 Univ ers acid, 3-03 mg by ity of vitamin C, 15:51: mouth. [place] (VITAMIN C) 53 Medical 500 mg Branch [...] by ity of vitamin C, 15:51: mouth. [place] (VITAMIN C) 53 Medical 500 mg Branch [...] by ity of vitamin C, 15:51: mouth. [place] (VITAMIN C) 53 Medical 500 mg Branch [...] by ity of vitamin C, 15:51: mouth. [place] (VITAMIN C) 53 Medical 500 mg Branch [...] by ity of vitamin C, 15:51: mouth. [place] (VITAMIN C) 53 Medical 500 mg Branch [...] by ity of vitamin C, 15:51: mouth. [place] (VITAMIN C) 53 Medical 500 mg Branch [...] by ity of vitamin C, 15:51: mouth. [place] (VITAMIN C) 53 Medical 500 mg Branch [...] by ity of vitamin C, 15:51: mouth. [place] (VITAMIN C) 53 Medical 500 mg Branch [...] by ity of vitamin C, 15:51: mouth. [place] (VITAMIN C) 53 Medical 500 mg Branch [...] by ity of vitamin C, 15:51: mouth. [place] (VITAMIN C) 53 Medical 500 mg Branch [...] by ity of vitamin C, 15:51: mouth. [place] (VITAMIN C) 53 Medical 500 mg Branch [...] by ity of vitamin C, 15:51: mouth. [place] (VITAMIN C) 53 Medical 500 mg Branch [...] by mouth ity of capsule 15:25: daily. [place] [facility] predniSONE Yes 10mg Take 10 mg U nivers 10 mg 3-03 by mouth ity of tablet 15:25: as needed (wheezing) Medical . Branch tiotropium 2021-0 Yes 18ug Inhale 18 Un oren 18 mcg 3-03 mcg daily. ity of inhalation 15:25: [address] Branch omeprazole 0 Yes 40mg Take 40 mg U nivers 40 mg 3-03 by mouth ity of capsule 15:25: daily. [address] predniSONE 0 Yes 10mg Take 10 mg U nivers 10 mg 3-03 by mouth ity of tablet 15:25: as needed [place] [id number] (wheezing) Medical . Branch tiotropium Yes 18ug Inhale 18 Un oren 18 mcg 3-03 mcg daily. ity of inhalation 15:25: [address] omeprazole 0 Yes 40mg Take 40 mg U nivers 40 mg 3-03 by mouth ity of capsule 15:25: daily. [address] predniSONE 0 Yes 10mg Take 10 mg U nivers 10 mg 3-03 by mouth ity of tablet 15:25: as needed [place] [id number] (wheezing) Medical . Branch tiotropium Yes 18ug Inhale 18 Un oren 18 mcg 3-03 mcg daily. ity of inhalation 15:25: [address] omeprazole 0 Yes 40mg Take 40 mg U nivers 40 mg 3-03 by mouth ity of capsule 15:25: daily. [address] predniSONE 0 Yes 10mg Take 10 mg U nivers 10 mg 3-03 by mouth ity of tablet 15:25: as needed [place] [id number] (wheezing) Medical . Branch tiotropium Yes 18ug Inhale 18 Un oren 18 mcg 3-03 mcg daily. ity of inhalation 15:25: [address] omeprazole 0 Yes 40mg Take 40 mg U nivers 40 mg 3-03 by mouth ity of capsule 15:25: daily. [address] predniSONE 2020-0 Yes 10mg Take 10 mg U nivers 10 mg 3-03 by mouth ity of tablet 15:25: as needed [place] [id number] (wheezing) Medical . Branch tiotropium 0 Yes 18ug Inhale 18 Un oren 18 mcg 3-03 mcg daily. ity of inhalation 15:25: [address] omeprazole 2020-0 Yes 40mg Take 40 mg U nivers 40 mg 3-03 by mouth ity of capsule 15:25: daily. [address] predniSONE 2020-0 Yes 10mg Take 10 mg U nivers 10 mg 3-03 by mouth ity of tablet 15:25: as needed [place] [id number] (wheezing) Medical . Branch tiotropium 0 Yes 18ug Inhale 18 Un oren 18 mcg 3-03 mcg daily. ity of inhalation 15:25: [address] Branch omeprazole 0 Yes 40mg Take 40 mg U nivers 40 mg 3-03 by mouth ity of capsule 15:25: daily. [address] predniSONE 2020-0 Yes 10mg Take 10 mg U nivers 10 mg 3-03 by mouth ity of tablet 15:25: as needed [place] [id number] (wheezing) Medical . Branch tiotropium Yes 18ug Inhale 18 Un oren 18 mcg 3-03 mcg daily. ity of inhalation 15:25: [address] omeprazole 0 Yes 40mg Take 40 mg U nivers 40 mg 3-03 by mouth ity of capsule 15:25: daily. [address] predniSONE 2020-0 Yes 10mg Take 10 mg U nivers 10 mg 3-03 by mouth ity of tablet 15:25: as needed [place] [id number] (wheezing) Medical . Branch tiotropium Yes 18ug Inhale 18 Un oren 18 mcg 3-03 mcg daily. ity of inhalation 15:25: [address] omeprazole 0 Yes 40mg Take 40 mg U nivers 40 mg 3-03 by mouth ity of capsule 15:25: daily. [address] predniSONE 2020-0 Yes 10mg Take 10 mg U nivers 10 mg 3-03 by mouth ity of tablet 15:25: as needed [place] [id number] (wheezing) Medical . Branch tiotropium 0 Yes 18ug Inhale 18 Un oren 18 mcg 3-03 mcg daily. ity of inhalation 15:25: [address] omeprazole 2020-0 Yes 40mg Take 40 mg U nivers 40 mg 3-03 by mouth ity of capsule 15:25: daily. [address] predniSONE 2020-0 Yes 10mg Take 10 mg U nivers 10 mg 3-03 by mouth ity of tablet 15:25: as needed [place] [id number] (wheezing) Medical . Branch tiotropium 2021-0 Yes 18ug Inhale 18 Un oren 18 mcg 3-03 mcg daily. ity of inhalation 15:25: [address] omeprazole Yes 40mg Take 40 mg U nivers 40 mg 3-03 by mouth ity of capsule 15:25: daily. [address] predniSONE Yes 10mg Take 10 mg U nivers 10 mg 3-03 by mouth ity of tablet 15:25: as needed [place] [id number] (wheezing) Medical . Branch tiotropium Yes 18ug Inhale 18 Un oren 18 mcg 3-03 mcg daily. ity of inhalation 15:25: [address] omeprazole Yes 40mg Take 40 mg U nivers 40 mg 3-03 by mouth ity of capsule 15:25: daily. [address] predniSONE Yes 10mg Take 10 mg U nivers 10 mg 3-03 by mouth ity of tablet 15:25: as needed [place] [id number] (wheezing) Medical . Branch tiotropium Yes 18ug Inhale 18 Un oren 18 mcg 3-03 mcg daily. ity of inhalation 15:25: [address] omeprazole Yes 40mg Take 40 mg U nivers 40 mg 3-03 by mouth ity of capsule 15:25: daily. [address] predniSONE Yes 10mg Take 10 mg U nivers 10 mg 3-03 by mouth ity of tablet 15:25: as needed [place] [id number] (wheezing) Medical . Branch tiotropium Yes 18ug Inhale 18 Un oren 18 mcg 3-03 mcg daily. ity of inhalation 15:25: [address] omeprazole Yes 40mg Take 40 mg U nivers 40 mg 3-03 by mouth ity of capsule 15:25: daily. [address] predniSONE Yes 10mg Take 10 mg U nivers 10 mg 3-03 by mouth ity of tablet 15:25: as needed [place] [id number] (wheezing) Medical . Branch tiotropium Yes 18ug Inhale 18 Un oren 18 mcg 3-03 mcg daily. ity of inhalation 15:25: [address] ergocalcife Yes [id number] Take 1 Univers rol, 8-17 capsule by ity of vitamin d2, 00:00: mouth [place] (VITAMIN 00 weekly. Medical D2) 1,250 Branch mcg (50,000 unit) capsule ergocalcife 2020-0 Yes [id number] Take 1 Univers rol, 8-17 capsule by ity of vitamin d2, 00:00: mouth [place] (VITAMIN 00 weekly. Medical D2) 1,250 Branch mcg (50,000 unit) capsule ergocalcife 2020-0 Yes [id number] Take 1 Univers rol, 8-17 capsule by ity of vitamin d2, 00:00: mouth [place] (VITAMIN 00 weekly. Medical D2) 1,250 Branch mcg (50,000 unit) capsule ergocalcife 2020-0 Yes [id number] Take 1 Univers rol, 8-17 capsule by ity of vitamin d2, 00:00: mouth [place] (VITAMIN 00 weekly. Medical D2) 1,250 Branch mcg (50,000 unit) capsule ergocalcife 2020-0 Yes [id number] Take 1 Univers rol, 8-17 capsule by ity of vitamin d2, 00:00: mouth [place] (VITAMIN 00 weekly. Medical D2) 1,250 Branch mcg (50,000 unit) capsule ergocalcife 2020-0 Yes [id number] Take 1 Univers rol, 8-17 capsule by ity of vitamin d2, 00:00: mouth [place] (VITAMIN 00 weekly. Medical D2) 1,250 Branch mcg (50,000 unit) capsule ergocalcife 2020-0 Yes [id number] Take 1 Univers rol, 8-17 capsule by ity of vitamin d2, 00:00: mouth [place] (VITAMIN 00 weekly. Medical D2) 1,250 Branch mcg (50,000 unit) capsule ergocalcife 2020-0 Yes [id number] Take 1 Univers rol, 8-17 capsule by ity of vitamin d2, 00:00: mouth [place] (VITAMIN 00 weekly. Medical D2) 1,250 Branch mcg (50,000 unit) capsule ergocalcife 2020-0 Yes [id number] Take 1 Univers rol, 8-17 capsule by ity of vitamin d2, 00:00: mouth [place] (VITAMIN 00 weekly. Medical D2) 1,250 Branch mcg (50,000 unit) capsule ergocalcife 2020-0 Yes [id number] Take 1 Univers rol, 8-17 capsule by ity of vitamin d2, 00:00: mouth [place] (VITAMIN 00 weekly. Medical D2) 1,250 Branch mcg (50,000 unit) capsule ergocalcife 2020-0 Yes [id number] Take 1 Univers rol, 8-17 capsule by ity of vitamin d2, 00:00: mouth [place] (VITAMIN 00 weekly. Medical D2) 1,250 Branch mcg (50,000 unit) capsule ergocalcife 2020-0 Yes [id number] Take 1 Univers rol, 8-17 capsule by ity of vitamin d2, 00:00: mouth [place] (VITAMIN 00 weekly. Medical D2) 1,250 Branch mcg (50,000 unit) capsule ergocalcife 2020-0 Yes [id number] Take 1 Univers rol, 8-17 capsule by ity of vitamin d2, 00:00: mouth [place] (VITAMIN 00 weekly. Medical D2) 1,250 Branch mcg (50,000 unit) capsule ergocalcife 2020-0 Yes [id number] Take 1 Univers rol, 8-17 capsule by ity of vitamin d2, 00:00: mouth [place] (VITAMIN 00 weekly. Medical D2) 1,250 Branch mcg (50,000 unit) capsule Omeprazole Omeprazole 2019-0 Yes Tom 1 capsule Common 8-16 [facility] 00:00: - [facility] 00 [facility] Omeprazole Omeprazole 2019-0 No 1{capsu BID Omeprazole [...] le} 40 MG 00:00: 00 Omeprazole Omeprazole No 1{capsu BID Omeprazole 40 MG 40 MG 8-16 le} 40 MG 00:00: 00 Omeprazole Omeprazole No 1{capsu BID Omeprazole 40 MG 40 MG 8-16 le} 40 MG 00:00: 00 Omeprazole Omeprazole No 1{capsu BID Omeprazole 40 MG 40 MG 8-16 le} 40 MG 00:00: 00 Omeprazole Omeprazole No 1{capsu BID Omeprazole 40 MG 40 MG 8-16 le} 40 MG 00:00: 00 Omeprazole Omeprazole No 1{capsu BID Omeprazole 40 MG 40 MG 8-16 le} 40 MG 00:00: 00 Omeprazole Omeprazole No 1{capsu BID Omeprazole 40 MG 40 MG 8-16 le} 40 MG 00:00: 00 Omeprazole Omeprazole No 1{capsu BID Omeprazole 40 MG 40 MG 8-16 le} 40 MG 00:00: 00 Omeprazole Omeprazole No 1{capsu BID Omeprazole 40 MG 40 MG 8-16 le} 40 MG 00:00: 00 rosuvastati Yes Crestor 40 Methodi n (CRESTOR) 2-[address] 40 MG 16:34: [facility] 22 l albuterol Yes ProAir HFA [facility] (PROAIR 2-[address] HFA,PROVENT 16:34: mcg/actuat [facility] [place] 22 ion l HFA,VENTOLI aerosol N HFA) 90 inhaler mcg/actuati on inhaler rosuvastati Yes Crestor 40 Methodi n (CRESTOR) 2-[address] 40 MG 16:34: [facility]ospita tablet 22 l albuterol Yes ProAir HFA [facility] (PROAIR 2-[address] HFA,PROVENT 16:34: mcg/actuat [facility] [place] 22 ion l HFA,VENTOLI aerosol N HFA) 90 inhaler mcg/actuati on inhaler Rosuvastati Rosuvastati Yes Tom 1 tablet Common n Calcium n Calcium [facility] PredniSONE PredniSONE Yes Tom 1 tablet Common [facility] Vitamin B12 Vitamin B12 No Vitamin B12 [...] No Zinc Probiotic Probiotic No Probiotic 250 BILLION-MG BILLION-MG BILLION-MG Neuriva Neuriva No Neuriva [...] 20 MG Probiotic Probiotic No Probiotic 250 1250 1-250 BILLION-MG BILLION-MG BILLION-MG predniSONE predniSONE No [...] 20 MG Probiotic Probiotic No Probiotic 250 250 250 BILLION-MG BILLION-MG BILLION-MG predniSONE predniSONE No 1{table [...] 20 MG Probiotic Probiotic No Probiotic 250 BILLION-MG BILLION-MG BILLION-MG predniSONE predniSONE No 1{table [...] 20 MG Probiotic Probiotic No Probiotic 250 BILLION-MG BILLION-MG BILLION-MG predniSONE predniSONE No 1{table QD predniSONE 10 MG 10 MG t} 10 MG Neuriva Neuriva No Neuriva Zinc Zinc No Zinc Vitamin C Vitamin C No Vitamin C Rosuvastati Rosuvastati No 1{table QD Rosuvastat n Calcium n Calcium t} in Calcium 40 MG 40 MG 40 MG Vitamin B12 Vitamin B12 No Vitamin B12 Probiotic Probiotic No Probiotic 250 1250 1-250 BILLION-MG BILLION-MG BILLION-MG Zinc Zinc No [...] Vitamin B12 Probiotic Probiotic No Probiotic 250 1250 1-250 BILLION-MG BILLION-MG BILLION-MG Zinc Zinc No [...] B12 Probiotic Probiotic No Probiotic 250 250 1-250 BILLION-MG BILLION-MG BILLION-MG Zinc Zinc No [...] Vitamin B12 Probiotic Probiotic No Probiotic 250 1250 1-250 BILLION-MG BILLION-MG BILLION-MG Zinc Zinc No [...] Immunizations Ordered Filled Immunization Date Status Comments [facility] Immunization Name Name Influenza Virus 2022-07-18 [...] 2020-08-26 Completed University o f Polysaccharide, 00:00:00 [place] [facility] ical PPSV23 (PNEUMOVAX) Branch Pneumococcal 2020-08-26 Completed University o f Polysaccharide, 00:00:00 [place] [facility] ical PPSV23 (PNEUMOVAX) Branch Pneumococcal 2020-08-26 Completed University o f Polysaccharide, 00:00:00 [place] [facility] ical PPSV23 (PNEUMOVAX) Branch Influenza High Dose 2020-06-26 Completed Unive rsity of 00:00:00 [facility] Influenza High Dose 2020-06-26 Completed Unive rsity of 00:00:00 [facility] Influenza High Dose 2020-06-26 Completed Unive rsity of 00:00:00 [facility] Influenza High Dose 2020-06-26 Completed Unive rsity of 00:00:00 [facility] Influenza High Dose 2020-06-26 Completed Unive rsity of 00:00:00 [facility] Influenza High Dose 2020-06-26 Completed Unive rsity of 00:00:00 [facility] Influenza High Dose 2020-06-26 Completed Unive rsity of 00:00:00 [place] [facility] Influenza High Dose 2020-06-26 Completed Unive rsity of 00:00:00 [facility] Influenza High Dose 2020-06-26 Completed Unive rsity of 00:00:00 [place] [facility] Influenza High Dose 2020-06-26 Completed Unive rsity of 00:00:00 [facility] Influenza High Dose 2020-06-26 Completed Unive rsity of 00:00:00 [facility] Influenza High Dose 2020-06-26 Completed Unive rsity of 00:00:00 [facility] Influenza High Dose 2020-06-26 Completed Unive rsity of 00:00:00 [place] [facility] Influenza High Dose 2020-06-26 Completed Unive rsity of 00:00:00 [facility] Influenza High Dose 2019-06-26 Completed Unive rsity of 00:00:00 [facility] Influenza High Dose 2019-06-26 Completed Unive rsity of 00:00:00 [facility] Influenza High Dose 2019-06-26 Completed Unive rsity of 00:00:00 [facility] Influenza High Dose 2019-06-26 Completed Unive rsity of 00:00:00 [facility] Influenza High Dose 2019-06-26 Completed Unive rsity of 00:00:00 [facility] Influenza High Dose 2019-06-26 Completed Unive rsity of 00:00:00 [facility] Influenza High Dose 2019-06-26 Completed Unive rsity of 00:00:00 [facility] Influenza High Dose 2019-06-26 Completed Unive rsity of 00:00:00 [facility] Influenza High Dose 2019-06-26 Completed Unive rsity of 00:00:00 [facility] Influenza High Dose 2019-06-26 Completed Unive rsity of 00:00:00 [facility] Influenza High Dose 2019-06-26 Completed Unive rsity of 00:00:00 [facility] Influenza High Dose 2019-06-26 Completed Unive rsity of 00:00:00 [facility] Influenza High Dose 2019-06-26 Completed Unive rsity of 00:00:00 [facility] Influenza High Dose 2019-06-26 Completed Unive rsity of 00:00:00 [facility] Influenza High Dose 2018-06-26 Completed Unive rsity of 00:00:00 [facility] Influenza High Dose 2018-06-26 Completed Unive rsity of 00:00:00 [facility] Influenza High Dose 2018-06-26 Completed Unive rsity of 00:00:00 [facility] Influenza High Dose 2018-06-26 Completed Unive rsity of 00:00:00 [facility] Influenza High Dose 2018-06-26 Completed Unive rsity of 00:00:00 [facility] Influenza High Dose 2018-06-26 Completed Unive rsity of 00:00:00 [facility] Influenza High Dose 2018-06-26 Completed Unive rsity of 00:00:00 [facility] Influenza High Dose 2018-06-26 Completed Unive rsity of 00:00:00 [facility] Influenza High Dose 2018-06-26 Completed Unive rsity of 00:00:00 [facility] Influenza High Dose 2018-06-26 Completed Unive rsity of 00:00:00 [facility] Influenza High Dose 2018-06-26 Completed Unive rsity of 00:00:00 [facility] Influenza High Dose 2018-06-26 Completed Unive rsity of 00:00:00 [facility] Influenza High Dose 2018-06-26 Completed Unive rsity of 00:00:00 [place] [facility] Influenza High Dose 2018-06-26 Completed Unive rsity of 00:00:00 [facility] Vital Signs Vital Name Observation Time Observation Value Comments Source Systolic blood 2022-10-31 19:55:00 128 mm[Hg] Univer sity of pressure [place] [facility] Diastolic blood 2022-10-31 19:55:00 78 mm[Hg] Unive rsity of pressure [facility] Branch Heart rate 2022-10-31 19:55:00 73 /min Universi ty of [facility] Respiratory rate 2022-10-31 19:55:00 16 /min Univ ersity of [place] [facility] Body weight 2022-10-31 19:55:00 58.514 kg Universi ty of [facility] Branch BMI 2022-10-31 19:55:00 22.14 kg/m2 Universi ty of [facility] Oxygen saturation in 2022-10-31 19:55:00 95 /min University of Arterial blood by [facility] Pulse oximetry Branch Systolic blood 2022-09-28 15:52:00 148 mm[Hg] Univer sity of pressure [facility] Branch Diastolic blood 2022-09-28 15:52:00 83 mm[Hg] Unive rsity of pressure [facility] Branch Heart rate 2022-09-28 15:52:00 78 /min Universi ty of [place] [facility] Body height 2022-09-28 15:52:00 162.6 cm Universi ty of [place] [facility] Body weight 2022-09-28 15:52:00 58.968 kg Universi ty of [facility] Branch BMI 2022-09-28 15:52:00 22.31 kg/m2 Universi ty of [facility] Branch Systolic blood 2022-08-28 21:49:00 134 mm[Hg] Univer sity of pressure [facility] Branch Diastolic blood 2022-08-28 21:49:00 81 mm[Hg] Unive rsity of pressure [facility] Branch Heart rate 2022-08-28 21:49:00 79 /min Universi ty of [facility] Branch Body height 2022-08-28 21:49:00 162.6 cm Universi ty of [facility] Body weight 2022-08-28 21:49:00 58.06 kg Universi ty of [place] [facility] BMI 2022-08-28 21:49:00 21.97 kg/m2 Universi ty of [place] [facility] Oxygen saturation in 2022-08-28 21:49:00 95 /min University of Arterial blood by [facility] judi Pulse oximetry Branch Systolic blood 2022-07-18 16:08:00 133 mm[Hg] Univer sity of pressure [place] [facility] Diastolic blood 2022-07-18 16:08:00 81 mm[Hg] Unive rsity of pressure [facility] Heart rate 2022-07-18 16:08:00 72 /min Universi ty of [place] [facility] Respiratory rate 2022-07-18 16:08:00 19 /min Univ ersity of [facility] Branch Body height 2022-07-18 16:08:00 165.1 cm Universi ty of [place] [facility] Body weight 2022-07-18 16:08:00 59.829 kg Universi ty of [place] [facility] BMI 2022-07-18 16:08:00 21.95 kg/m2 Universi ty of [place] [facility] Oxygen saturation in 2022-07-18 16:08:00 98 /min University of Arterial blood by [facility] Pulse oximetry Branch Systolic blood 2022-06-29 19:34:00 134 mm[Hg] Univer sity of pressure [place] [facility] Diastolic blood 2022-06-29 19:34:00 76 mm[Hg] Unive rsity of pressure [facility] Branch Heart rate 2022-06-29 19:34:00 72 /min Universi ty of [place] [facility] Body height 2022-06-29 19:34:00 165.1 cm Universi ty of [place] [facility] Body weight 2022-06-29 19:34:00 60.782 kg Universi ty of [place] [facility] BMI 2022-06-29 19:34:00 22.30 kg/m2 Universi ty of [place] [facility] Oxygen saturation in 2022-06-29 19:34:00 96 /min University of Arterial blood by [facility] Pulse oximetry Branch height 2022-06-20 13:10:00 62.5 [in_i] [facility] weight 2022-06-20 13:10:00 132 [lb_av] [facility] temperature 2022-06-20 13:10:00 97.9 [degF] Common [facility] bmi 2022-06-20 13:10:00 23.76 kg/m2 [facility] oximetry 2022-06-20 13:10:00 95 % Common [facility] respiratory rate 2022-06-20 13:10:00 17 /min Comm on [facility] blood pressure 2022-06-20 13:10:00 136 mm[Hg] [facility] systolic [facility] blood pressure 2022-06-20 13:10:00 80 mm[Hg] [facility] diastolic [facility] height 2022-06-05 09:00:00 65.0 [in_i] Common [facility] weight 2022-06-05 09:00:00 131 [lb_av] [facility] bmi 2022-06-05 09:00:00 21.8 kg/m2 Common [facility] height 2022-05-16 14:20:00 65.0 [in_i] Common [facility] weight 2022-05-16 14:20:00 131 [lb_av] Common [facility] temperature 2022-05-16 14:20:00 97.6 [degF] [facility] bmi 2022-05-16 14:20:00 21.8 kg/m2 [facility] oximetry 2022-05-16 14:20:00 94 % Common [facility] respiratory rate 2022-05-16 14:20:00 16 /min Comm on [facility] blood pressure 2022-05-16 14:20:00 133 mm[Hg] Common [facility] - systolic [facility] blood pressure 2022-05-16 14:20:00 64 mm[Hg] [facility] diastolic [facility] height 2022-05-16 14:30:00 65.0 [in_i] [facility] weight 2022-05-16 14:30:00 131 [lb_av] [facility] temperature 2022-05-16 14:30:00 97.6 [degF] [facility] bmi 2022-05-16 14:30:00 21.8 kg/m2 [facility] oximetry 2022-05-16 14:30:00 94 % [facility] respiratory rate 2022-05-16 14:30:00 16 /min [facility] on [facility] blood pressure 2022-05-16 14:30:00 133 mm[Hg] [facility] systolic [facility] blood pressure 2022-05-16 14:30:00 64 mm[Hg] [facility] diastolic [facility] Heart rate 2023-04-12 21:30:00 80 /min [facility] Respiratory rate 2023-04-12 21:30:00 16 /min [facility] Oxygen saturation in 2023-04-12 21:30:00 93 /min [facility] Arterial blood by Pulse oximetry Systolic blood 2023-04-12 21:20:00 131 mm[Hg] [facility] pressure Diastolic blood 2023-04-12 21:20:00 65 mm[Hg] [facility] pressure Body temperature 2023-04-12 16:35:00 36.22 Mari [facility] Body height 2023-04-12 16:35:00 162.6 cm [facility] Body weight 2023-04-12 16:35:00 55.339 kg [facility] BMI 2023-04-12 16:35:00 20.94 kg/m2 [facility] Systolic blood 2023-02-26 16:07:00 148 mm[Hg] [facility] pressure Diastolic blood 2023-02-26 16:07:00 65 mm[Hg] [facility] pressure Heart rate 2023-02-26 16:07:00 81 /min [facility] Body temperature 2023-02-26 16:07:00 37 Mari [facility] Respiratory rate 2023-02-26 16:07:00 14 /min [facility] Body height 2023-02-26 16:07:00 165.1 cm [facility] Body weight 2023-02-26 16:07:00 56.337 kg [facility] BMI 2023-02-26 16:07:00 20.67 kg/m2 [facility] Oxygen saturation in 2023-02-26 16:07:00 96 /min [facility] Arterial blood by Pulse oximetry Body height 2021-10-25 17:49:00 165.1 cm [facility] Body weight 2021-10-25 17:49:00 61.236 kg [facility] BMI 2021-10-25 17:49:00 22.47 kg/m2 [facility] Procedures Procedure Date / Time Performing Clinician Source Performed IR NEEDLE BIOPSY 2023-04-12 19:41:11 Harsh Lomeli [facility] IR EPIDURAL INJECTION 2023-04-12 19:41:11 Harsh Lomeli [facility] LUMBAR IR [facility]Y [facility] 2023-04-12 19:41:11 Harsh Lomeli [facility] BODY LUMBA ECG 12-LEAD 2023-04-12 17:26:25 Ellie Ward [facility] CBC WITH PLATELET AND 2023-04-09 17:51:00 Harsh Lomeli [facility] DIFFERENTIAL COMPREHENSIVE METABOLIC 2023-04-09 17:51:00 Harsh Lomeli [facility] PANEL PROTHROMBIN TIME WITH INR 2023-04-09 17:51:00 Harsh Lomeli [facility] PARTIAL THROMBOPLASTIN 2023-04-09 17:51:00 Harsh Lomeli [facility] TIME (PTT) MRI LUMBAR SPINE WO 2023-03-12 20:08:00 Harsh Lomeli [facility] CONTRAST XR CHEST 2 VW 2022-11-22 20:09:34 Alecia Watts Shirley [facility] PULMONARY FUNCTION TEST 2022-11-22 18:34:09 Alecia Watts [facility] IR KYPHOPLASTY [facility] VERT 2022-10-05 16:11:31 Harsh Lomeli [facility] BODY LUMBA COVID-19 QUALITATIVE 2022-10-03 18:30:00 Pottmeyer, Lily [facility] RT-PCR CBC WITH PLATELET AND 2022-10-03 [facility] DIFFERENTIAL BASIC METABOLIC PANEL 2022-10-03 18:30:00 [facility] PROTHROMBIN TIME WITH INR 2022-10-03 18:30:00 [facility] ESTIMATED GFR 2022-10-03 18:30:[address] [facility] CONSENT/REFUSAL FOR 2022-09-28 15:43:17 Doctor Unassigned, [facility] DIAGNOSIS AND TREATMENT [facility] MRI LUMBAR SPINE WO 2022-09-18 19:15:58 Harsh Lomeli [facility] CONTRAST SLEEP STUDY DATA REPORT 2022-07-26 05:01:00 Doctor Unassigned, [facility] FLU 2022-07-18 16:06:31 Reed Almendarez [facility] VACC(),65+YR,0.5 Medica l Branch ML,IM,ADJUVANTED,QUAD(FLU AD) XR SHOULDER 2+ VW RIGHT 2021-10-25 17:49:05 Ariana Perez [facility] DC ARTHROCENTESIS 2021-10-25 17:00:00 [facility] ASPIR&/INJ MAJOR JT/BURSA W/O US MRI LUMBAR SPINE WO 2021-10-06 18:10:45 Harsh Lomeli [facility] CONTRAST MRI THORACIC SPINE WO 2021-10-06 17:55:34 Harsh Lomeli [facility] CONTRAST Plan of Care Planned Activity Planned Date Details Comments Source Future Scheduled 2023-04-12 Screening for [facility] Test 13:53:59 malignant neoplasm of colon (procedure) [code = 155319708] Future Scheduled 2023-04-12 Screening for [facility] Test 13:53:59 malignant neoplasm of colon (procedure) [code = 050221762] Future Scheduled 2023-04-12 Screening for [facility] Test 13:53:59 malignant neoplasm of colon (procedure) [code = 760369378] Future Scheduled 2023-04-12 Hepatitis C screening [facility] Test 13:53:59 (procedure) [code = 617458309] Future Scheduled 2023-04-12 BREAST CANCER [facility] Test 13:53:59 SCREENING [code = BREAST CANCER SCREENING] Future Scheduled 2023-04-12 Screening for [facility] Test 13:53:59 malignant neoplasm of colon (procedure) [code = 830477999] Future Scheduled 2023-04-12 Screening for [facility] Test 13:53:59 malignant neoplasm of colon (procedure) [code = 433261081] Future Scheduled 2023-04-12 SHINGLES VACCINES (1 Met [facility] Test 13:53:59 of 2) [code = SHINGLES VACCINES (1 of 2)] Future Scheduled 2023-04-12 COVID-19 VACCINE (2 - Me [facility] Test 13:53:59 Booster for Joe series) [code = COVID-19 VACCINE (2 - Booster for Joe series)] Future Scheduled 2023-04-12 65+ [facility] 13:53:59 VACCINE (2 - PCV) [code = 65+ PNEUMOCOCCAL VACCINE (2 - PCV)] Future Scheduled 2023-04-12 INFLUENZA VACCINE [facility] Test 13:53:59 [code = INFLUENZA VACCINE] Future Scheduled 2023-03-19 Hepatitis C screening [facility] Test 06:39:07 (procedure) [code = 684201119] Future Scheduled 2023-03-19 BREAST CANCER [facility] Test 06:39:07 SCREENING [code = BREAST CANCER SCREENING] Future Scheduled 2023-03-19 COLONOSCOPY SCREENING [facility] Test 06:39:07 [code = COLONOSCOPY SCREENING] Future Scheduled 2023-03-19 SHINGLES VACCINES (1 Met [facility] Test 06:39:07 of 2) [code = SHINGLES VACCINES (1 of 2)] Future Scheduled 2023-03-19 COVID-19 VACCINE (2 - Me [facility] Test 06:39:07 Booster for Joe series) [code = COVID-19 VACCINE (2 - Booster for Joe series)] Future Scheduled 2023-03-19 65+ [facility]AL [facility] Test 06:39:07 VACCINE (2 - PCV) [code = 65+ PNEUMOCOCCAL VACCINE (2 - PCV)] Future Scheduled 2023-03-19 INFLUENZA VACCINE Method [facility] Test 06:39:07 [code = INFLUENZA VACCINE] Future Scheduled 2022-06-20 HEPATITIS B VACCINES Met [facility] Test 22:23:42 (1 of 3 - 3-dose series) [code = HEPATITIS B VACCINES (1 of 3 - 3-dose series)] Future Scheduled 2022-06-20 COVID-19 VACCINE (#1) [facility] Test 22:23:42 [code = COVID-19 VACCINE (#1)] Future Scheduled 2022-06-20 Hepatitis C screening [facility] Test 22:23:42 (procedure) [code = 829175268] Future Scheduled 2022-06-20 BREAST CANCER [facility] Test 22:23:42 SCREENING [code = BREAST CANCER SCREENING] Future Scheduled 2022-06-20 COLONOSCOPY SCREENING [facility] Test 22:23:42 [code = COLONOSCOPY SCREENING] Future Scheduled 2022-06-20 SHINGLES VACCINES (1 Met [facility] Test 22:23:42 of 2) [code = SHINGLES VACCINES (1 of 2)] Future Scheduled 2022-06-20 65+ [facility] 22:23:42 VACCINE (2 - PCV) [code = 65+ PNEUMOCOCCAL VACCINE (2 - PCV)] Future Scheduled 2022-06-20 INFLUENZA VACCINE [facility] Test 22:23:42 [code = INFLUENZA VACCINE] Future Scheduled 2021-11-21 COVID-19 VACCINE (1) Met [facility] Test 15:45:20 [code = COVID-19 VACCINE (1)] Future Scheduled 2021-11-21 Hepatitis C screening [facility] Test 15:45:20 (procedure) [code = 335214452] Future Scheduled 2021-11-21 BREAST CANCER [facility] Test 15:45:20 SCREENING [code = BREAST CANCER SCREENING] Future Scheduled 2021-11-21 COLONOSCOPY SCREENING [facility] Test 15:45:20 [code = COLONOSCOPY SCREENING] Future Scheduled 2021-11-21 SHINGLES VACCINES (#1) M [facility] Test 15:45:20 [code = SHINGLES VACCINES (#1)] Future Scheduled 2021-11-21 INFLUENZA VACCINE Method [facility] Test 15:45:20 [code = INFLUENZA VACCINE] Encounters Start End Encounter Admission Attending Care Care Encounter Source Date/Time Date/Time Type Type Clinicians Facility Department ID 2023-03-22 Outpatient Gonzales, [facility]LMLC [facility] [id number] Common 13:30:00 Lonnie [id number] [facility] 2021-11-15 Outpatient Gonzales, STLMLC [facility] [id number] Common 14:33:19 Lonnie [facility] 2021-11-15 Outpatient Gonzales, STLMLC [facility] [id number] Common 13:32:47 Lonnie [id number] [facility] 2021-11-15 Outpatient Gonzales, STLMLC [facility] [id number] Common 13:31:54 Lonnie [id number] [facility] 2021-11-15 Outpatient Gonzales, STLMLC [facility] [id number] Common 13:31:14 Lonnie [facility] 2021-11-15 Outpatient STLMLC [facility] [id number] Common 13:17:33 [id number] [facility] 2021-08-17 Outpatient R DAYANARACHAROMIHAINACHO [facility] [id number] [facility] 18:39:26 ELAURA [facility] 2023-04-12 2023-04-12 [facility], 1.2.840.1 [id number] 62268 Methodi 11:13:30 23:59:00 Encounter Harsh Ayala 29408.1.[address] 3.430.2.7 Hospit a .3.366676 l .8 2023-04-12 2023-04-12 Anesthesia [facility], 1.2.840.1 [id number] Methodi 12:38:00 13:44:00 Event Ellie Howell 52029.1.[address] 3.430.2.7 Hospit a .3.048492 l .8 2023-04-12 2023-04-12 Outpatient [facility] [id number] [address] [place] [address] 00:00:00 00:00:00 HARSH Garcia [facility] 2023-04-12 2023-04-12 Travel 1.2.840.1 1.2.820.565 6702 [id number] Methodi 00:00:00 00:00:[address] 3.430.2.7 0.2.7.3.698 Ho spita .3.778937 084.8 l .8 2023-04-09 2023-04-09 Office Denny, 1.2.840.1 [id number] 8469 Methodi 10:45:00 11:37:37 Visit Alecia Wall 93805.1.[address] 3.430.2.7 Hospit a .3.305162 l .8 2023-04-09 2023-04-09 [facility] [id number] [address] [place] [address] 00:00:00 00:00:[address] 2023-04-05 2023-04-05 Orders Christiano, 1.2.840.1 [id number] 0991 Methodi 00:00:00 00:00:00 Only Susan 65703.1.[address] 3.430.2.7 Hospit a .3.285591 l .8 2023-04-05 2023-04-05 Telephone Demetrius, 1.2.840.1 [id number] 2100 878492 Methodi 00:00:00 00:00:00 Harsh Ayala 08677.1.1 055 s t 3.430.2.7 Hospit a .3.078275 l .8 2023-04-03 2023-04-03 Orders Christiano, 1.2.840.1 [id number] 4965 Methodi 00:00:00 00:00:00 Only Susan 63653.1.[address] 3.430.2.7 Hospit a .3.403326 l .8 2023-03-28 2023-03-28 Office Demetrius, 1.2.840.1 [id number] 040353 4226 Methodi 10:45:00 11:26:07 Visit Harsh Ayala 97639.1.1 570 s t 3.430.2.7 Hospit a .3.803185 l .8 2023-03-28 2023-03-28 Orders Darshan, 1.2.840.1 [id number] 82612 50537 Methodi 00:00:00 00:00:00 Only Cisco Chan50.1.[address] 3.430.2.7 Hospit a .3.041656 l .8 2023-03-28 2023-03-28 Outpatient [place] [id number] [address] [place] 00:00:00 00:00:00 HARSH Mcarthur [facility] 2023-03-15 2023-03-15 Telephone [place], 1.2.840.1 [id number] 2099 [id number] Methodi 00:00:00 00:00:00 Harsh Simon.1.1 581 s t 3.430.2.7 Hospit a .3.728324 l .8 2023-03-15 2023-03-15 Telephone Demetrius, 1.2.840.1 [id number] 2099 044781 Methodi 00:00:00 00:00:00 Harsh Simon.1.1 581 s t 3.430.2.7 Hospit a .3.848288 l .8 2023-03-12 2023-03-12 [facility], 1.2.840.1 [id number] 18249 24790 Methodi 14:03:45 23:59:00 Encounter Harsh Chan50.1.[address] 3.430.2.7 Hospit a .3.940095 l .8 2023-03-12 2023-03-12 Office Demetrius, 1.2.840.1 [id number] 6914 Methodi 11:00:00 13:53:20 Visit Harsh Chan50.1.1 008 s t 3.430.2.7 Hospit a .3.084996 l .8 2023-03-12 2023-03-12 Office Demetrius, 1.2.840.1 [id number] 822282 9820 Methodi 11:00:00 13:53:20 Visit Harsh Chan50.1.1 008 s t 3.430.2.7 Hospit a .3.211751 l .8 2023-03-12 2023-03-12 Orders Alvarado, 1.2.840.1 [id number] 0560 Methodi 00:00:00 00:00:00 Only Susan 98100.1.[address] 3.430.2.7 Hospit a .3.888164 l .8 2023-03-12 2023-03-12 Orders Alvarado, 1.2.840.1 [id number] 2824 Methodi 00:00:00 00:00:00 Only Susan 61375.1.[address] 3.430.2.7 Hospit a .3.292383 l .8 2023-03-12 2023-03-12 Travel 1.2.840.1 1.2.266.773 6412 869974 Methodi 00:00:00 00:00:[address] 3.430.2.7 0.2.7.3.698 Ho spita .3.373104 084.8 l .8 2023-03-12 2023-03-12 Telephone Watts, 1.2.840.1 [id number] 2099 934379 Methodi 00:00:00 00:00:00 Ale[address] 57458.1.[address] 3.430.2.7 Hospit a .3.972538 l .8 2023-03-12 2023-03-12 Orders Alvarado, 1.2.840.1 [id number] 0547 Methodi 00:00:00 00:00:00 Only Susan 77352.1.[address] 3.430.2.7 Hospit a .3.191357 l .8 2023-03-12 2023-03-12 Orders Alvarado, 1.2.840.1 [id number] 9180 Methodi 00:00:00 00:00:00 Only Susan 77803.1.[address] 3.430.2.7 Hospit a .3.271117 l .8 2023-03-12 2023-03-12 Travel 1.2.840.1 1.2.997.230 5026 308778 Methodi 00:00:00 00:00:[address] 3.430.2.7 0.2.7.3.698 Ho spita .3.332168 084.8 l .8 2023-03-12 2023-03-12 Telephone Watts, 1.2.840.1 [id number] 2100 535457 Methodi 00:00:00 00:00:00 Alecia Wall 03332.1.[address] 3.430.2.7 Hospit a .3.328685 l .8 2023-03-12 2023-03-12 [facility], 1.2.840.1 [id number] 80555 24896 [place] 00:00:00 00:00:00 Encounter HARSH 47369.1.1 [address] .3.611883 .8 2023-03-01 2023-03-01 Travel 1.2.840.1 1.2.393.971 1105 199317 Methodi 00:00:00 00:00:[address] 3.430.2.7 0.2.7.3.698 Ho spita .3.553432 084.8 l .8 2023-03-01 2023-03-01 Travel 1.2.840.1 1.2.424.192 9410 281191 Methodi 00:00:00 00:00:[address] 3.430.2.7 0.2.7.3.698 Ho spita .3.851032 084.8 l .8 2023-02-26 2023-02-26 Office Watts, 1.2.840.1 [id number] 5351 Methodi 10:30:00 12:01:43 Visit Alecia ParmarShirley 76536.1.[address] 3.430.2.7 Hospit a .3.539724 l .8 2023-02-26 2023-02-26 Office Watts, 1.2.840.1 [id number] 887921 5615 Methodi 10:30:00 12:01:43 Visit Alecia Wall 13745.1.[address] 3.430.2.7 Hospit a .3.332859 l .8 2023-02-26 2023-02-26 Travel 1.2.840.1 1.2.027.825 7963 165165 Methodi 00:00:00 00:00:[address] 3.430.2.7 0.2.7.3.698 Ho spita .3.683380 084.8 l .8 2023-02-26 2023-02-26 Travel 1.2.840.1 1.2.134.534 3910 949088 Methodi 00:00:00 00:00:[address] 3.430.2.7 0.2.7.3.698 Ho spita .3.029686 084.8 l .8 2023-01-28 2023-01-28 Outpatient Myesha COMBS [facility] [id number] [facility] 10:30:00 10:30:00 [place] earl [facility] 2022-12-27 2022-12-27 Office Denny, 1.2.840.1 [id number] 1943 Methodi 11:15:00 12:17:40 Visit Alecia Wall 90898.1.[address] 3.430.2.7 Hospit a .3.190464 l .8 2022-12-27 2022-12-27 Office Denny, 1.2.840.1 [id number] 3674 Methodi 11:15:00 12:17:40 Visit Alecia Wall 23212.1.[address] 3.430.2.7 Hospit a .3.053158 l .8 2022-12-27 2022-12-27 Travel 1.2.840.1 1.2.710.160 6546 762741 Methodi 00:00:00 00:00:[address] 3.430.2.7 0.2.7.3.698 Ho spita .3.898750 084.8 l .8 2022-12-27 2022-12-27 Travel 1.2.840.1 1.2.364.211 0719 203721 Methodi 00:00:00 00:00:[address] 3.430.2.7 0.2.7.3.698 Ho spita .3.282616 084.8 l .8 2022-12-18 2022-12-18 Orders Darshan, 1.2.840.1 [id number] 21001 45978 Methodi 00:00:00 00:00:00 Only Cisco Alejandre 70799.1.[address] 3.430.2.7 Hospit a .3.566112 l .8 2022-12-18 2022-12-18 Orders Darshan, 1.2.840.1 21128 Methodi 00:00:00 00:00:00 Only Cisco Alejandre 99425.1.[address] 3.430.2.7 Hospit a .3.202514 l .8 2022-12-17 2022-12-17 Telephone [place], 1.2.840.1 [id number] 2100 038947 Methodi 00:00:00 00:00:00 Harsh Ayala 52590.1.1 925 s t 3.430.2.7 Hospit a .3.639915 l .8 2022-12-17 2022-12-17 Telephone [place], 1.2.840.1 2099 125816 Methodi 00:00:00 00:00:00 Harsh Ayala 99650.1.1 925 s t 3.430.2.7 Hospit a .3.166479 l .8 2022-11-22 2022-11-22 [facility], 1.2.840.1 [id number] 61781 Methodi 13:54:51 23:59:00 Amaury Wall 03441.1.[address] 3.430.2.7 Hospit a .3.276943 l .8 2022-11-22 2022-11-22 [facility], 1.2.840.1 [id number] 79274 67993 Methodi 13:54:51 23:59:00 Encounter Alecia Wall 39668.1.[address] 3.430.2.7 Hospit a .3.112305 l .8 2022-11-22 2022-11-22 Clinical Ledbetter, 1.2.840.1 [id number] 2100 658185 Methodi 10:30:00 15:44:21 Support Silvia 27875.1.[address] 3.430.2.7 Hospit a .3.755699 l .8 2022-11-22 2022-11-22 Clinical Ledbetter, 1.2.840.1 [id number] 2099 023406 Methodi 10:30:00 15:44:21 Support Silvia 87326.1.[address] 3.430.2.7 Hospit a .3.336049 l .8 2022-11-22 2022-11-22 Office Denyn, 1.2.840.1 [id number] 044500 5121 Methodi 11:45:00 14:41:41 Visit Alecia Wall 61209.1.[address] 3.430.2.7 Hospit a .3.249648 l .8 2022-11-22 2022-11-22 [facility] Watts, 1.2.840.1 [id number] 400381 9627 Methodi 11:45:00 14:41:41 Visit Alecia Wall 57210.1.[address] 3.430.2.7 Hospit a .3.740162 l .8 2022-11-22 2022-11-22 [facility], 1.2.840.1 [id number] 835355 9459 Methodi 00:00:00 00:00:00 Only Tracy 38917.1.[address] 3.430.2.7 Hospit a .3.989616 l .8 2022-11-22 2022-11-22 Travel 1.2.840.1 1.2.736.494 7243 767759 Methodi 00:00:00 00:00:[address] 3.430.2.7 0.2.7.3.698 Ho spita .3.604107 084.8 l .8 2022-11-22 2022-11-22 Orders Asaf, 1.2.840.1 [id number] 672176 5522 Methodi 00:00:00 00:00:00 Only Tracy 18735.1.[address] 3.430.2.7 Hospit a .3.577854 l .8 2022-11-22 2022-11-22 Travel 1.2.840.1 1.2.659.987 8455 629878 Methodi 00:00:00 00:00:[address] 3.430.2.7 0.2.7.3.698 Ho spita .3.909597 084.8 l .8 2022-11-13 2022-11-13 Office Demetrius, 1.2.840.1 [id number] 7761 Methodi 11:15:00 13:44:37 Visit Harsh Ayala 40110.1.1 674 s t 3.430.2.7 Hospit a .3.159879 l .8 2022-11-13 2022-11-13 Office Demetrius, 1.2.840.1 [id number] 126085 2821 Methodi 11:15:00 13:44:37 Visit Harsh Ayala 28312.1.1 674 s t 3.430.2.7 Hospit a .3.265539 l .8 2022-11-13 2022-11-13 Rangel Sexton 1.2.840.1 [id number] 25303 Methodi 00:00:00 00:00:00 Only Cisco Alejandre 12470.1.[address] 3.430.2.7 Hospit a .3.486000 l .8 2022-11-13 2022-11-13 Rangel Sexton 1.2.840.1 [id number] 11117 Methodi 00:00:00 00:00:00 Only Cisco Alejandre 93733.1.[address] 3.430.2.7 Hospit a .3.384222 l .8 2022-11-07 2022-11-07 Travel 1.2.840.1 1.2.353.908 1904 427624 Methodi 00:00:00 00:00:[address] 3.430.2.7 0.2.7.3.698 Ho spita .3.293995 084.8 l .8 2022-11-07 2022-11-07 Travel 1.2.840.1 1.2.252.952 7030 753166 Methodi 00:00:00 00:00:[address] 3.430.2.7 0.2.7.3.698 Ho spita .3.908181 084.8 l .8 2022-10-31 2022-10-31 Office [facility] 1.2.920.440 9445 8781 [facility] 14:00:00 14:30:00 Visit Reed [facility].686 Carley phillips PROFESSIO [id number] [address] 2022-10-31 2022-10-31 Outpatient [facility] [id number] Univers 14:00:00 14:00:00 TANESHA [facility] 2022-10-10 2022-10-10 Outpatient R [facility] [id number] Univers 10:30:00 10:30:00 TANESHA [facility] 2022-10-05 2022-10-05 [facility], 1.2.840.1 [id number] 16407 55808 Methodi 06:50:14 23:59:00 Encounter Harsh Ayala 69149.1.[address] 3.430.2.7 Hospit a .3.634186 l .8 2022-10-05 2022-10-05 [facility], 1.2.840.1 [id number] 95809 Methodi 06:50:14 23:59:00 Encounter Harsh Ayala 56550.1.[address] 3.430.2.7 Hospit a .3.971199 l .8 2022-10-05 2022-10-05 Anesthesia Taco Duffy 1.2.840.1 [id number] Methodi 08:46:00 09:59:00 Event José 67830.1.[address] 3.430.2.7 Hospit a .3.955486 l .8 2022-10-05 2022-10-05 Anesthesia Taco Duffy 1.2.840.1 [id number] Methodi 08:46:00 09:59:00 Event José 27267.1.[address] 3.430.2.7 Hospit a .3.269772 l .8 2022-10-05 2022-10-05 Travel 1.2.840.1 1.2.307.345 7447 122848 Methodi 00:00:00 00:00:[address] 3.430.2.7 0.2.7.3.698 Ho spita .3.659112 084.8 l .8 2022-10-05 2022-10-05 Travel 1.2.840.1 1.2.023.492 3163 265035 Methodi 00:00:00 00:00:[address] 3.430.2.7 0.2.7.3.698 Ho spita .3.193734 084.8 l .8 2022-10-03 2022-10-03 [facility], 1.2.840.1 [id number] 642182 9248 Methodi 12:10:00 12:15:00 Harsh Ayala 36587.1.1 210 s t 3.430.2.7 Hospit a .3.682414 l .8 2022-10-03 2022-10-03 Lab [place], 1.2.840.1 [id number] 963014 3560 Methodi 12:10:00 12:15:00 Harsh K. 24290.1.1 210 s t 3.430.2.7 Hospit a .3.680833 l .8 2022-10-03 2022-10-03 Travel 1.2.840.1 1.2.820.229 7551 653621 Methodi 00:00:00 00:00:[address] 3.430.2.7 0.2.7.3.698 Ho spita .3.340505 084.8 l .8 2022-10-03 2022-10-03 Telephone [facility], 1.2.840.1 [id number] 2099730 Methodi 00:00:00 00:00:[address] 3.430.2.7 Hospit a .3.404647 l .8 2022-10-03 2022-10-03 Travel 1.2.840.1 1.2.339.873 3777 421776 Methodi 00:00:00 00:00:[address] 3.430.2.7 0.2.7.3.698 Ho spita .3.977700 084.8 l .8 2022-10-03 2022-10-03 Telephone [facility], 1.2.840.1 [id number] 2099730 Methodi 00:00:00 00:00:[address] 3.430.2.7 Hospit a .3.795195 l .8 2022-10-02 2022-10-02 Telephone [facility], 1.2.840.1 7286363482099658 Methodi 00:00:00 00:00:[address] 3.430.2.7 Hospit a .3.459841 l .8 2022-10-02 2022-10-02 Telephone [facility], 1.2.840.1 2099658 Methodi 00:00:00 00:00:[address] 3.430.2.7 Hospit a .3.080768 l .8 2022-09-28 2022-09-28 Outpatient R DEMARTREMAINE [facility] [id number] Univers 10:00:00 10:13:10 DEMARTREMAINE Headley itlobo of [facility] 2022-09-28 2022-09-28 Office Demar [facility] 1.2.840.114 43196 952 Univers 10:00:00 10:13:10 Visit T[facility] 350.1.13.10 ity of [place] 4.2.7.2.686 Viraj as TIFFANIE?BLEA [phone] [address] OFFICE [facility] 2022-09-28 2022-09-28 Orders Doctor WILSON 1.2.840.114 [id number] Univers 00:00:00 00:00:00 Only Unassigned, ANKIT 350.1.13.10 ity of [place] [facility] 4.2.7.2.686 Ivraj as [phone] [address] 2022-09-27 2022-09-27 Office Demetrius 1.2.840.1 [id number] 957610 2264 Methodi 10:45:00 12:41:18 Visit Harsh Ayala 51419.1.1 114 s t 3.430.2.7 Hospit a .3.214978 l .8 2022-09-27 2022-09-27 Office Demetrius 1.2.840.1 [id number] 589255 4971 Methodi 10:45:00 12:41:18 Visit Harsh Ayala 48977.1.1 114 s t 3.430.2.7 Hospit a .3.946122 l .8 2022-09-27 2022-09-27 Orders Darshan 1.2.840.1 [id number] 88110 68074 Methodi 00:00:00 00:00:00 Only Cisco Chan50.1.[address] 3.430.2.7 Hospit a .3.008322 l .8 2022-09-27 2022-09-27 Orders Darshan 1.2.840.1 [id number] 78211 Methodi 00:00:00 00:00:00 Only Cisco BrunnerShirley [address]313.1.[address] 3.430.2.7 Hospit a .3.139792 l .8 2022-09-21 2022-09-21 Travel 1.2.840.1 1.2.290.496 1575 235608 Methodi 00:00:00 00:00:[address] 3.430.2.7 0.2.7.3.698 Ho spita .3.942581 084.8 l .8 2022-09-21 2022-09-21 Travel 1.2.840.1 1.2.862.098 0270 834640 Methodi 00:00:00 00:00:[address] 3.430.2.7 0.2.7.3.698 Ho spita .3.367503 084.8 l .8 2022-09-18 2022-09-18 [id number] [address] [place] [address] 00:00:00 00:00:00 HARSH Jeff [facility] i st 2022-09-11 2022-09-11 Office Demetrius, 1.2.840.1 [id number] 830406 1851 Methodi 11:00:00 11:27:41 Visit Harsh Ayala 66621.1.1 179 s t 3.430.2.7 Hospit a .3.604301 l .8 2022-09-11 2022-09-11 Office Demetrius, 1.2.840.1 [id number] 004784 3960 Methodi 11:00:00 11:27:41 Visit Harsh Ayala 46026.1.1 179 s t 3.430.2.7 Hospit a .3.170212 l .8 2022-09-05 2022-09-05 Outpatient REED PAN [facility] [id number] Univers 11:00:00 11:00:00 REED ALMENDAREZ [facility] 2022-08-28 2022-08-28 Outpatient TREMAINE WORKMAN [facility] [id number] Univers 15:30:00 16:03:47 TREMAINE CHAUDHRY ity [facility] 2022-08-28 2022-08-28 Office Virginia Combs [facility] 1.2.840.114 [id number] Univers 15:30:00 16:03:47 Visit Tremaine Chaudhry [facility] 350.1.13. 10 ity of [place] 4.2.7.2.686 Viraj as TIFFANIE?BLEA [phone] Nd dical KNEY [address] [place] [address] MEDICAL OFFICE [facility] 2022-07-26 2022-07-26 E Commerce Marketing Manager 1, [facility] Sleep Lab Bed [facility] 1. 2.840.114 [id number] Univers 20:00:00 22:30:00 Visit Reed Almendarez 350.1.13. 10 ity of [place] 4.2.7.2.[place] [phone] [facility] [address] 2022-07-26 2022-07-26 Outpatient R REED ALMENDAREZ [facility] [id number] Univers 20:00:00 20:00:00 [facility]-26 2022-07-26 Orders Doctor STEVE 1.2.840.114 [id number] Univers 00:00:00 00:00:00 Only Unassigned, ANKIT 350.1.13.10 ity of [place] [facility] 4.2.7.2.686 Viraj as [phone] [place] [address] [address] 2022-07-23 2022-07-23 (TEL) [facility] [id number] Co mmon 00:00:00 00:00:00 [facility] 2022-07-18 2022-07-18 Office Tanesha [facility] 1.2.242.351 [id number] Univers 11:00:00 11:20:00 Visit Reed VILLAFUERTE 350.1.13.10 ity of [place] 4.2.7.2.686 [place] [facility] [phone] Nd yulisa FOFANA 085 [facility] 2022-07-18 2022-07-18 Outpatient R REED ALMENDAREZ [facility] [id number] Univers 11:00:00 11:00:00 REED ALMENDAREZ [facility] 2022-07-18 2022-07-18 Outpatient R REED ALMENDAREZ [facility] [id number] Univers 11:00:00 11:00:00 REED ALMENDAREZ lobo [facility] 2022-07-18 2022-07-18 (TEL) [facility] [id number] Co mmon 00:00:00 00:00:00 Spirit - [facility] 2022-06-29 2022-06-29 Outpatient R TREMAINE CHAUDHRY [facility] [id number] Univers 14:40:00 15:17:28 TREMAINE CHAUDHRY lobo [facility] 2022-06-29 2022-06-29 Office [facility] 1.2.840.114 [id number] Univers 14:40:00 15:17:28 Visit [facility] 350.1.13.10 ity of [place] 4.2.7.2.686 Viraj as TIFFANIE?BLEA [phone] [address] OFFICE [facility] 2022-06-29 2022-06-29 Refill [facility] 1.2.840.114 [id number] Univers 00:00:00 00:00:00 [facility] 350.1.13.10 ity of [place] 4.2.7.2.686 Viraj as TIFFANIE?BLEA [phone] [address] OFFICE [facility] 2022-06-26 2022-06-26 Orders Doctor STEVE 1.2.840.114 [id number] Univers 00:00:00 00:00:00 Only Unassigned, ANKIT 350.1.13.10 ity of [place] [facility] 4.2.7.2.686 Viraj as [phone] [address] 2022-06-20 2022-06-20 OFFICE [facility] [id number] Co mmon 00:00:00 00:00:00 VISIT Spirit ESTAB PT - CHI LEVEL 4 [facility] 2022-06-05 2022-06-05 OL DIG E/M STLMLC STLMLC [id number] Common 00:00:00 00:00:00 [facility] 11-20 Spir it MIN - CHI [facility] 2022-06-05 2022-06-05 (TEL) STLMLC STLMLC [id number] Co mmon 00:00:00 00:00:00 [facility] 2022-06-04 2022-06-04 (TEL) STLMLC STLMLC [id number] Co mmon 00:00:00 00:00:00 Spirit [facility] 2022-06-04 2022-06-04 (TEL) STLMLC STLMLC [id number] Co mmon 00:00:00 00:00:00 [facility] 2022-05-25 2022-05-25 Piedad Chaudhry [facility] 1.2.840.114 [id number] Univers 00:00:00 00:00:00 [facility] 350.1.13.10 ity [place] 4.2.7.2.686 Viraj as TIFFANIE?BLEA [phone] Nd yulisa [facility] [address] MEDICAL OFFICE BUILDING 2022-05-16 2022-05-16 OFFICE STLC STLC [id number] Co mmon 00:00:00 00:00:[address] [facility] ESTAB PT - CHI LEVEL 4 [facility] 2022-05-16 2022-05-16 SUB ANNUAL STLMLC STLC [id number] Common 00:00:00 00:00:00 MCR Spirit WELLNESS - CHI VISIT [facility] 2022-04-13 2022-04-13 (TEL) STLMLC STLMLC [id number] Co mmon 00:00:00 00:00:00 [facility] 2022-03-11 2022-03-11 Piedad Vital PRJONAH 1.2.840.114 [id number] Univers 00:00:00 00:00:00 Tejal [place] 350.1.13.10 ity tai [facility] 4.2.7.2.[place] [phone] Nd yulisa [facility] [address] BUILDING 2022-02-27 2022-02-27 (TEL) [facility] [id number] Co mmon 00:00:00 00:00:00 [facility] 2022-02-14 2022-02-14 (TEL) [facility] [id number] Co mmon 00:00:00 00:00:00 [facility] 2022-01-08 2022-01-08 Telephone Demar [facility] 1.2.840.114 [id number] Univers 00:00:00 00:00:00 Tremaine [facility] 350.1.13.10 ity of [place] 4.2.7.2.686 Viraj as TIFFANIE?BLEA [phone] [address] MEDICAL OFFICE [facility] 2021-12-20 2021-12-20 Orders Doctor WILSON 1.2.840.114 [id number] Univers 00:00:00 00:00:00 Only Unassigned, ANKIT 350.1.13.10 [facility] [facility] [place] [facility] 4.2.7.2.686 Viraj as [phone] [address] 2021-12-18 2021-12-18 Outpatient TREMAINE WORKMAN [facility] [id number] [facility] 10:40:00 11:10:32 TREMAINE CHAUDHRY itlobo [facility] 2021-12-13 2021-12-13 Orders Doctor WILSON 1.2.840.114 [id number] Univers 00:00:00 00:00:00 Only Unassigned, ANKIT 350.1.13.10 ity of [facility] 4.2.7.2.686 Viraj as [phone] [address] 2021-10-25 2021-10-25 Office Chris 1Shirley2.840.1 [id number] Methodi 11:00:00 12:33:49 Visit Ariana Luna 39611.1.[address] 3.430.2.7 Hospit a .3.255993 l .8 2021-10-25 2021-10-25 Outpatient [facility] [id number] [place] 00:00:00 00:00:[address] 2021-10-24 2021-10-24 Orders Ramirez Arenas2.840.1 [id number] Methodi 00:00:00 00:00:00 Only Radha 67080.1.[address] 3.430.2.7 Hospit a .3.890581 l .8 2021-10-19 2021-10-19 Telephone [facility] 1.2.840.114 [id number] Univers 00:00:00 00:00:00 [facility] 350.1.13.10 ity of [place] 4.2.7.2.686 Viraj as TIFFANIE?BLEA [phone] [address] OFFICE [facility] 2021-10-18 2021-10-18 Telephone Demetrius, 1.2.840.1 [id number] Methodi 10:00:00 10:15:00 Consult Harsh Ayala 73215.1.1 043 s t 3.430.2.7 Hospit a .3.308925 l .8 2021-10-16 2021-10-16 Outpatient R TREMAINE CHAUDHRY [facility] [id number] Univers 09:20:00 10:00:34 TREMAINE CHAUDHRY [facility] 2021-10-16 2021-10-16 Office [facility] 1.2.840.114 [id number] Univers 09:20:00 10:00:34 Visit [facility] 350.1.13.10 [facility] 4.2.7.2.686 Viraj as TIFFANIE?BLEA [phone] [address] OFFICE [facility] 2021-10-16 2021-10-16 Outpatient R TREMAINE CHAUDHRY [facility] [id number] Univers 09:20:00 10:00:34 TREMAINE CHAUDHRY [facility] 2021-10-12 2021-10-12 Orders Fawad, 1.2.840.1 [id number] Methodi 00:00:00 00:00:00 Only Moriah 10186.1.[address] 3.430.2.7 Hospit a .3.682856 l .8 2021-10-11 2021-10-11 Travel 1.2.840.1 1.2.232.491 [id number] Methodi 00:00:00 00:00:[address] 3.430.2.7 0.2.7.3.698 Ho spita .3.940385 084.8 l .8 2021-10-10 2021-10-10 Outpatient R TREMAINE CHAUDHRY [facility] [id number] Univers 08:29:06 23:59:00 TREMAINE CHAUDHRY ity [facility] 2021-10-10 2021-10-10 [facility] Demar [facility] 1.2.720.788 [id number] Univers 08:29:06 23:59:00 Encounter Tremaine VILLAFUERTE 350.1.13.10 ity [facility] 4.2.7.2.686 [facility] [phone] [address] 2021-10-06 2021-10-06 Travel 1.2.840.1 1.2.767.248 [id number] Methodi 00:00:00 00:00:[address] 3.430.2.7 0.2.7.3.698 Ho spita .3.482049 084.8 l .8 2021-10-06 2021-10-06 [facility]patient [facility] [id number] [place] 00:00:00 00:00:00 HARSH [address] 2021-10-06 2021-10-06 [facility] [id number] [place] 00:00:00 00:00:[address] HARSH [address] 2021-10-02 2021-10-02 Orders Fawad, 1.2.840.1 [id number] Methodi 00:00:00 00:00:00 Only Moriah 38532.1.[address] 3.430.2.7 Hospit a .3.328586 l .8 2021-09-28 2021-09-28 Office Demetrius, 1.2.840.1 [id number] 8621 Methodi 10:30:00 10:56:04 Visit Harsh Ayala 67458.1.1 503 s t 3.430.2.7 Hospit a .3.291533 l .8 2021-09-25 2021-09-25 E Commerce Marketing Manager Lab, Ang - Db [facility] 1.2.840.1 14 [id number] Univers 11:15:27 11:30:27 Visit DemarTremaine ceballos [facility] 350.1.13. 10 it[facility] 4.2.7.2.686 Viraj as TIFFANIE?BLEA [phone] [facility] [address] MEDICAL OFFICE BUILDING 2021-09-25 2021-09-25 Outpatient R DEMARTREMAINE Headley [facility] [id number] Univers 10:00:00 11:15:11 [facility]INE [facility] 2021-09-25 2021-09-25 Office [facility] 1.2.840.114 [id number] Univers 09:47:18 11:15:11 Visit [facility] 350.1.13.10 ity of [place] 4.2.7.2.686 Viraj as TIFFANIE?BLEA [phone] [facility] [address] [facility] OFFICE [facility] 2021-09-25 2021-09-25 Orders Doctor STEVE 1.2.840.114 [id number] Univers 00:00:00 00:00:00 Only Unassigned, ANKIT 350.1.13.10 ity of [place] [facility] 4.2.7.2.686 Viraj as [phone] [address] 2021-09-18 2021-09-18 Telephone [facility] 1.2.840.114 [id number] Univers 00:00:00 00:00:00 Tejal VILLAFUERTE 350.1.13.10 ity of [place].2.[place] [phone] Nd jose[address] 2021-09-18 2021-09-18 Telephone [facility] 1.2.840.114 [id number] Univers 00:00:00 00:00:00 Tejal VILLAFUERTE 350.1.13.10 [facility] 4.2.7.2.[place] [phone] Nd dical NAL 044 [facility] 2021-09-13 2021-09-13 Orders Doctor STEVE 1.2.840.114 [id number] Univers 00:00:00 00:00:00 Only Unassigned, ANKIT 350.1.13.10 ity of [place] [facility] 4.2.7.2.686 Viraj as [phone] [address] 2021-09-08 2021-09-08 Telephone [facility] 1.2.840.114 [id number] [facility] 00:00:00 00:00:00 Tejal VILLAFUERTE 350.1.13.10 ity of [place].2.[place] [phone] Nd dical NAL 231 [facility] 2021-09-06 2021-09-06 Travel 1.2.840.1 1.2.407.244 [id number] [id number] Methodi 00:00:00 00:00:[address] 3.430.2.7 0.2.7.3.698 Ho spita .3.272530 084.8 l .8 2021-09-01 2021-09-01 Refill [facility] 1.2.840.114 [id number] Univers 00:00:00 00:00:00 Tejal VILLAFUERTE 350.1.13.10 [facility] 4.2.7.2.[place] [phone] Nd dical NAL 231 [facility] 2021-09-01 2021-09-01 Telephone [facility] 1.2.840.114 [id number] [facility] 00:00:00 00:00:00 Tejal VILLAFUERTE 350.1.13.10 it[facility] 4.2.7.2.[place] [phone] Nd dical NAL 231 [facility] 2021-08-10 2021-08-10 Orders Doctor WILSON 1.2.840.114 [id number] Univers 00:00:00 00:00:00 Only Unassigned, ANKIT 350.1.13.10 ity of [place] [facility] 4.2.7.2.686 Viraj as [phone] [address] 2021-08-04 2021-08-04 (TEL) STLMLC STLMLC [id number] Co mmon 00:00:00 00:00:00 [facility] 2021-07-25 2021-07-25 Telephone [facility] 1.2.840.114 [id number] Univers 00:00:00 00:00:00 Tejal Villafuerte 350.1.13.10 ity of [place] 4[place]2.7.2.[place] [phone] [facility] 231 [facility] 2021 2021 Telephone [facility] 1.2.840.114 [id number] Univers 00:00:00 00:00:00 Tejal Villafuerte 350.1.13.10 ity of [place] 4[place]2.7.2.[place] [phone] [facility] 044 [facility] 2021-07-11 2021-07-11 Orders Doctor STEVE 1.2.840.114 [id number] Univers 00:00:00 00:00:00 Only Unassigned, ANKIT 350.1.13.10 ity of [place] [facility] 4.2.7.2.686 Viraj as [phone] [address] 2021-06-29 2021-06-29 Orders Doctor STEVE 1.2.840.114 [id number] Univers 00:00:00 00:00:00 Only Unassigned, ANKIT 350.1.13.10 ity of [place] [facility] 4.2.7.2.686 Viraj as [id number] [address] 2021-05-18 2021-05-18 Outpatient STLMLC STLMLC [id number] Common 00:00:00 00:00:00 [facility] 2020-12-29 2020-12-29 [facility] [id number] Univers 00:00:00 00:00:00 BLANCA earl o poli [facility] 2020-12-21 2020-12-21 Outpatient R JACKIE [facility] [id number] Univers 15:30:00 15:30:00 BLANCA ashton [facility] 2020-12-19 2020-12-19 Outpatient R JEFFY [facility] [id number] Univers 09:00:00 09:00:00 TEJAL [facility] 2020-10-26 2020-10-26 Urgent [facility] 1.2.840.114 [id number] 19:10:20 19:41:[address] [facility] 350.1.13.10 [place] 4.2.7.2.686 Professio [phone] nal 044 Office [facility] 2020-10-26 2020-10-26 Outpatient [facility] [id number] Univers 19:00:00 19:00:00 INDIRA [facility] 2020-09-20 2020-09-20 [facility]phone [facility] 1.2.840.114 [id number] 00:00:00 00:00:00 Tejal Villafuerte 350.1.13.10 [place] 4.2.7.2.686 Professio [phone] [address] 2020-08-26 2020-08-26 Office [facility] 1.2.840.114 [id number] 10:00:41 11:52:04 Visit Tejal Villafuerte 350.1.13.10 [place] 4.2.7.2.686 Professio [phone] [address] 2020-08-26 2020-08-26 Outpatient R JEFFY [facility] [id number] Univers 10:00:00 10:00:00 TEJAL earl [facility] 2020-05-25 2020-05-25 [facility] [id number] Univers 09:15:00 09:15:00 [facility] 2020-05-23 2020-05-23 Outpatient Myesha VITAL, [facility] [id number] Univers 09:40:00 09:40:00 TEJAL earl of [facility] 2020-05-19 2020-05-19 Outpatient R MAE [facility] [id number] Univers 06:28:41 06:28:41 LAURA Headley [facility] 2020-05-18 2020-05-18 Outpatient R MAE [facility] [id number] Univers 13:30:00 13:30:00 ELAURA [facility] 2020-02-09 2020-02-09 Outpatient R MAE [facility] [id number] Univers 12:00:00 12:00:00 LAURA Headley [facility] 2019-06-17 2019-06-17 Outpatient Bere Neto [id number] Common 08:45:00 08:45:00 t Specialty/U Sp ilia Specialty rology - CHI /Urology Clinic [facility] 2019-06-05 2019-06-05 Outpatient Americajacob Beret 27 [id number] Common 10:44:00 10:44:00 t Specialty/U Sp ilia Specialty rology - [facility]I /Urology Clinic [facility] 2019-05-26 2019-05-26 Outpatient Americajacob Beret 26 [id number] Common 13:30:00 13:30:00 t Specialty/U Sp ilia Specialty rology - [facility]I /Urology Clinic [facility] Results Test Description Test Time Test Comments Results Result Comments Source CBC with platelet and differential 2023-04-10 13:04:00 Test Item Value Reference Range Interpretation Comme nts WBC (test code = 6690-2) 7.0 See_Comment [A utomated message] The system which ge nerated this result tra nsmitted reference range : 3.4 - 10.8 x10E3/uL. The reference range was not used to interpr et this result as boone l/abnormal. RBC (test code = 789-8) 4.10 See_Comment [Au tomated message] The system which ge nerated this result tra nsmitted reference range : 3.77 - 5.28 x10E6/uL. The reference range was not used to interpr et this result as boone l/abnormal. HGB (test code = 718-7) 13.5 g/dL 11.1-15.9 HCT (test code = 4544-3) 40.9 % 34.0-46.6 MCV (test code = 787-2) 100 fL 79-97 H MCH (test code = 785-6) 32.9 pg 26.6-33.0 MCHC (test code = 786-4) 33.0 g/dL 31.5-35.7 RDW (test code = 788-0) 12.8 % 11.7-15.4 Platelet count (test code 194 See_Comment [ Automated message] The = 777-3) system which ge nerated this result tra nsmitted reference range : 150 - 450 x10E3/uL. The r eference range was not u sed to interpret this result as normal/abnormal . Neutrophils (test code = 64 % Not Estab. 770-8) Lymphocytes (test code = 25 % Not Estab. 736-9) Monocytes (test code = 7 % Not Estab. 5905-5) Eosinophils (test code = 3 % Not Estab. 713-8) Basophils (test code = 1 % Not Estab. 706-2) Neutrophils, absolute 4.5 See_Comment [Auto mated message] The (test code = 751-8) system w [employer] generated this result tra nsmitted reference range : 1.4 - 7.0 x10E3/uL. The r eference range was not u sed to interpret this result as normal/abnormal . Lymphocytes, absolute 1.7 See_Comment [Auto mated message] The (test code = 731-0) system w [employer] generated this result tra nsmitted reference range : 0.7 - 3.1 x10E3/uL. The r eference range was not u sed to interpret this result as normal/abnormal . Monocytes, absolute (test 0.5 See_Comment [ Automated message] The code = 742-7) system which g enerated this result tra nsmitted reference range : 0.1 - 0.9 x10E3/uL. The r eference range was not u sed to interpret this result as normal/abnormal . Eosinophils, absolute 0.2 See_Comment [Auto mated message] The (test code = 711-2) system w hich generated this result tra nsmitted reference range : 0.0 - 0.4 x10E3/uL. The r eference range was not u sed to interpret this result as normal/abnormal . Basophils, absolute (test 0.1 See_Comment [ Automated message] The code = 704-7) system which g enerated this result tra nsmitted reference range : 0.0 - 0.2 x10E3/uL. The r eference range was not u sed to interpret this result as normal/abnormal . Immature granulocytes 0 % Not Estab. (test code = 55818-6) Immature granulocytes, 0.0 See_Comment [Aut omated message] The absolute (test code = system which generated 99976-5) this result tra nsmitted reference range : 0.0 - 0.1 x10E3/uL. The r eference range was not u sed to interpret this result as normal/abnormal . MARIELA (test code = MARIELA) Performed at: 01 - [facility] [id number] Director: Froy Lujan MD, Phone: [phone] Lab Interpretation (test Abnormal code = 02963-1) [facility] with [id number] 13:04:00 Test Item Value Reference Range Interpretation Comments INR (test code = 1.0 0.9-1.2 Reference i nterval 6301-6) is for non-anticoagula tom patients.Sugges tom INR therapeutic range for Vitam in Kantagonist therapy: Standa rd Dose (moderate intensity therapeutic range): 2.0 - 3 .0 Higher intensit y therapeutic ran ge 2.5 - 3.5 Prothrombin time 10.5 See_Comment [Automated (test code = message] The 5902-2) system which generated this result transmit tom reference range : 9.1 - 12.0 sec. The reference range was not u sed to interpret th is result as normal/abnormal . MARIELA (test code = Performed at: MARIELA) - [facility] [address] [id number] Director: Froy Lujan MD, Phone: [phone] [facility] thromboplastin time, [id number] 13:04:00 Test Item Value Reference Range Interpretation Comments aPTT (test 26 See_Comment This test [place] n [place] = [place] [address]-3) monitoring unfractionated heparintherapy. aPTT-based ther apeutic ranges for unfractionated heparintherapy have not been establ ished. For general macario delines onHeparin monit oring, refer to the [facility] Directory of Se rvices. [Automated mess age] The system Technical Machine generated this result transmitted ref erence range: 24 - 33 sec. The reference r debbie was not used to interpret this result as normal/abnor mal. MARIELA (test Performed at: 01 - code = MARIELA) [facility] [id number] [place], [place] [id number] Director: Froy Lujan MD, Phone: [phone] [facility] ParkwayComprehensive metabolic [id number] 13:04:00 Test Item Value Reference Range Interpretation Comments Glucose (test code 92 mg/dL 70-99 = 2345-7) BUN (test code = 17 mg/dL 8-27 3094-0) Creatinine (test 0.80 mg/dL 0.57-1.00 code = 2160-0) eGFR (test code = 77 mL/min/1.73 >=59 38112-8) BUN/creatinine 21 -28 ratio (test code = 3097-3) Sodium (test code = 142 mmol/L 142-198 5487-2) Potassium (test 3.8 mmol/L 3.5-5.2 code = 2823-3) Chloride (test code 105 mmol/L 96-106 = 2075-0) CO2 (test code = 22 mmol/L 20-29 2027-9) Calcium (test code 9.4 mg/dL 8.7-10.3 = 28057-4) Protein (test code 6.9 g/dL 6.0-8.5 = 2885-2) Albumin (test code 4.6 g/dL 3.7-4.7 = 1751-7) Globulin, total 2.3 g/dL 1.5-4.5 (test code = 99698-4) Albumin/globulin 2.0 1.2-2.2 ratio (test code = 1759-0) Total bilirubin 0.3 mg/dL 0.0-1.2 (test code = 1975-2) Alkaline 75 See_Comment [Automated phosphatase (test message] T he code = 6768-6) system which generated this result transmit tom reference range : 44 - 121 IU/L. The reference range was not used to interpret this result as normal/abnormal . AST (test code = 16 See_Comment [Automated 1920-8) message] The system which generated this result transmit tom reference range : 0 - 40 IU/L. The reference range was not used to interpret this result as normal/abnormal . ALT (test code = 9 See_Comment [Automated 174-6) message] The system which generated this result transmit tom reference range : 0 - 32 IU/L. The reference range was not used to interpret this result as normal/abnormal . [facility] (test code = Performed at: 01 [facility]) - [facility] [id number] [place], [place] [id number] Director: Froy Lujan MD, Phone: [phone] [facility] 2022-11-22 18:34:09 Test Item Value Reference Range Interpretation Comments VC Pre (test code = 1.94 L 2.02-3.36 5374) VC Predicted (test 2.69 code = 5372) VC LLN (test code = 2.02 5373) VC % Pre of Predicted 72.1 % (test code = 5375) TLC Pre (test code = 4.33 L 3.78-5.76 5416) TLC Predicted (test 4.77 code = 5414) TLC LLN (test code = 3.78 5415) TLC % Pre of Predicted 90.6 % (test code = 5417) RV Pre (test code = 2.38 L 1.52-2.67 5402) RV Predicted (test 2.10 code = 5400) RV LLN (test code = 1.52 5401) RV % Pre of Predicted 113.7 % (test code = 5403) RV % TLC Pre (test 55.12 % 34.87-54.05 code = 5409) RV % TLC Predicted 44 (test code = 5407) RV % TLC LLN (test 35 code = 5408) RV % TLC % Pre of 124.0 % Predicted (test code = 5410) R0.5IN Pre (test code 3.44 See_Comment [Auto mated message] = 5514) The system [employer] generated this result transmitted ref erence range: 3.06 - 3 .06 cmH2O*s/L. The reference range was not used to interpr et this result as normal/abnormal . R0.5IN Predicted (test 3.06 code = 5512) R0.5IN LLN (test code 3.06 = 5513) R0.5IN % Pre of 112.3 % Predicted (test code = 5515) FRCpl Pre (test code = 3.03 L 1.84-3.48 5388) FRCpl % Predicted 2.66 (test code = 5386) FRCpl % LLN (test code 1.84 = 5387) FRCpl % Pre of 113.9 % Predicted (test code = 5389) ERV Pre (test code = 0.65 L 0.56-0.56 5381) ERV Predicted (test 0.56 code = 5379) ERV LLN (test code = 0.56 5380) ERV % Pre of Predicted 114.7 % (test code = 5382) IC Pre (test code = 1.29 L 1.81-1.81 5395) IC Predicted (test 1.81 code = 5393) IC LLN (test code = 1.81 5394) IC % Pre of Predicted 71.4 % (test code = 5396) sR0.5IN Pre (test code 11.07 cmH2O*s = 5521) Raw Pre (test code = 5.93 See_Comment [Autom ated message] 5507) The system [employer] generated this result transmitted ref erence range: 3.06 - 3 .06 cmH2O*s/L. The reference range was not used to interpr et this result as normal/abnormal . Raw Predicted (test 3.06 code = 5505) Raw LLN (test code = 3.06 5506) Raw % Pre of Predicted 193.7 % (test code = 5508) sGaw Predicted (test 0.05 See_Comment [Autom ated message] code = 5528) The system [employer] generated this result transmitted ref erence range: 0.10 - 0 .10 1/(cmH2O*s). Th e reference range was not used to interpr et this result as normal/abnormal . sGaw Predicted (test 0.10 code = 5526) sGaw LLN (test code = 0.10 5527) sGaw % Pre of 51.4 % Predicted (test code = 5529) FEV1 Post (test code = 1.44 L 1.45-2.58 5349) FEV1 Pre (test code = 1.15 L 1.45-2.58 5348) FEV1 Predicted (test 2.02 code = 5302) FEV1 LLN (test code = 1.45 5347) FEV1 % Pre of 57.2 % Predicted (test code = 5308) FEV1 % Post of 71.4 % Predicted (test code = 5350) FEV1 % Change (test 24.8 % code = 5351) FVC Post (test code = 2.34 L 2.02-3.36 5356) FVC Pre (test code = 1.94 L 2.02-3.36 5354) FVC Predicted (test 2.69 code = 5307) FVC LLN (test code = 2.02 5353) FVC % Pre of Predicted 72.1 % (test code = 5355) FVC % Post of 86.9 % Predicted (test code = 5357) FVC % Change (test 20.5 % code = 5358) FEV1/FVC % Post (test 61.47 % 65.08-84.67 code = 5363) FEV1/FVC % Pre (test 59.38 % 65.08-84.67 code = 5361) FEV1/FVC % Predicted 75 (test code = 5359) FEV1/FVC % LLN (test 65 code = 5360) FEV1/FVC % Pre of 79.3 % Predicted (test code = 5362) FEV1/FVC % Post of 82.1 % Predicted (test code = 5364) FEV1/FVC % Change 3.5 % (test code = 5365) FEF 25-75% Post (test 0.57 L/s 0.40-2.80 code = 5549) FEF 25-75% Pre (test 0.45 L/s 0.40-2.80 code = 5547) FEF 25-75% Predicted 1.60 (test code = 5546) FEF 25-75% LLN (test 0.40 code = 5545) FEF 25-75% % Pre of 28.1 % Predicted (test code = 5548) FEF 25-75% % Post of 35.5 % Predicted (test code = 5550) FEF 25-75% % Change 26.4 % (test code = 5551) PEF Post (test code = 4.43 L/s 3.43-6.75 5369) PEF Pre (test code = 4.16 L/s 3.43-6.75 5367) PEF Predicted (test 5.09 code = 5310) PEF LLN (test code = 3.43 5366) PEF % Pre of Predicted 81.7 % (test code = 5368) PEF % Post of 87.1 % Predicted (test code = 5370) PEF % Change (test 6.6 % code = 5371) DLCO Pre (test code = 10.05 See_Comment [Auto mated message] 5423) The system [employer] generated this result transmitted ref erence range: 13.04 - 26.04 ml/(min*mmHg). The reference range was not used to interpr et this result as normal/abnormal . DLCO Predicted (test 19.54 code = 5421) DLCO LLN (test code = 13.04 5422) DLCO % Pre of 51.5 % Predicted (test code = 5424) DL/VA Pre (test code = 2.85 See_Comment [Aut omated message] 5437) The system [employer] generated this result transmitted ref erence range: 2.94 - 5 .57 ml/(min*mmHg*L) . The reference range was not used to interpr et this result as normal/abnormal . DL/VA Predicted (test 4.26 code = 5435) DL/VA LLN (test code = 2.94 5436) DL/VA % Pre of 66.9 % Predicted (test code = 5438) VA SB Pre (test code = 3.53 L 3.80-6.00 5444) VA SB Predicted (test 4.90 code = 5442) VA SB LLN (test code = 3.80 5443) VA SB % Pre of 72.1 % Predicted (test code = 5445) [facility]22-[facility]-22 18:34:09 Test Item Value Reference Range Interpretation Comments VC Pre (test code = 1.94 L 2.02-3.36 5374) VC Predicted (test 2.69 code = 5372) VC LLN (test code = 2.02 5373) VC % Pre of Predicted 72.1 % (test code = 5375) TLC Pre (test code = 4.33 L 3.78-5.76 5416) TLC Predicted (test 4.77 code = 5414) TLC LLN (test code = 3.78 5415) TLC % Pre of Predicted 90.6 % (test code = 5417) RV Pre (test code = 2.38 L 1.52-2.67 5402) RV Predicted (test 2.10 code = 5400) RV LLN (test code = 1.52 5401) RV % Pre of Predicted 113.7 % (test code = 5403) RV % TLC Pre (test 55.12 % 34.87-54.05 code = 5409) RV % TLC Predicted 44 (test code = 5407) RV % TLC LLN (test 35 code = 5408) RV % TLC % Pre of 124.0 % Predicted (test code = 5410) R0.5IN Pre (test code 3.44 See_Comment [Auto mated message] = 5514) The system [employer] generated this result transmitted ref erence range: 3.06 - 3 .06 cmH2O*s/L. The reference range was not used to interpr et this result as normal/abnormal . R0.5IN Predicted (test 3.06 code = 5512) R0.5IN LLN (test code 3.06 = 5513) R0.5IN % Pre of 112.3 % Predicted (test code = 5515) FRCpl Pre (test code = 3.03 L 1.84-3.48 5388) FRCpl % Predicted 2.66 (test code = 5386) FRCpl % LLN (test code 1.84 = 5387) FRCpl % Pre of 113.9 % Predicted (test code = 5389) ERV Pre (test code = 0.65 L 0.56-0.56 5381) ERV Predicted (test 0.56 code = 5379) ERV LLN (test code = 0.56 5380) ERV % Pre of Predicted 114.7 % (test code = 5382) IC Pre (test code = 1.29 L 1.81-1.81 5395) IC Predicted (test 1.81 code = 5393) IC LLN (test code = 1.81 5394) IC % Pre of Predicted 71.4 % (test code = 5396) sR0.5IN Pre (test code 11.07 cmH2O*s = 5521) Raw Pre (test code = 5.93 See_Comment [Autom ated message] 5507) The system [employer] generated this result transmitted ref erence range: 3.06 - 3 .06 cmH2O*s/L. The reference range was not used to interpr et this result as normal/abnormal . Raw Predicted (test 3.06 code = 5505) Raw LLN (test code = 3.06 5506) Raw % Pre of Predicted 193.7 % (test code = 5508) sGaw Predicted (test 0.05 See_Comment [Autom ated message] code = 5528) The system [employer] generated this result transmitted ref erence range: 0.10 - 0 .10 1/(cmH2O*s). Th e reference range was not used to interpr et this result as normal/abnormal . sGaw Predicted (test 0.10 code = 5526) sGaw LLN (test code = 0.10 5527) sGaw % Pre of 51.4 % Predicted (test code = 5529) FEV1 Post (test code = 1.44 L 1.45-2.58 5349) FEV1 Pre (test code = 1.15 L 1.45-2.58 5348) FEV1 Predicted (test 2.02 code = 5302) FEV1 LLN (test code = 1.45 5347) FEV1 % Pre of 57.2 % Predicted (test code = 5308) FEV1 % Post of 71.4 % Predicted (test code = 5350) FEV1 % Change (test 24.8 % code = 5351) FVC Post (test code = 2.34 L 2.02-3.36 5356) FVC Pre (test code = 1.94 L 2.02-3.36 5354) FVC Predicted (test 2.69 code = 5307) FVC LLN (test code = 2.02 5353) FVC % Pre of Predicted 72.1 % (test code = 5355) FVC % Post of 86.9 % Predicted (test code = 5357) FVC % Change (test 20.5 % code = 5358) FEV1/FVC % Post (test 61.47 % 65.08-84.67 code = 5363) FEV1/FVC % Pre (test 59.38 % 65.08-84.67 code = 5361) FEV1/FVC % Predicted 75 (test code = 5359) FEV1/FVC % LLN (test 65 code = 5360) FEV1/FVC % Pre of 79.3 % Predicted (test code = 5362) FEV1/FVC % Post of 82.1 % Predicted (test code = 5364) FEV1/FVC % Change 3.5 % (test code = 5365) FEF 25-75% Post (test 0.57 L/s 0.40-2.80 code = 5549) FEF 25-75% Pre (test 0.45 L/s 0.40-2.80 code = 5547) FEF 25-75% Predicted 1.60 (test code = 5546) FEF 25-75% LLN (test 0.40 code = 5545) FEF 25-75% % Pre of 28.1 % Predicted (test code = 5548) FEF 25-75% % Post of 35.5 % Predicted (test code = 5550) FEF 25-75% % Change 26.4 % (test code = 5551) PEF Post (test code = 4.43 L/s 3.43-6.75 5369) PEF Pre (test code = 4.16 L/s 3.43-6.75 5367) PEF Predicted (test 5.09 code = 5310) PEF LLN (test code = 3.43 5366) PEF % Pre of Predicted 81.7 % (test code = 5368) PEF % Post of 87.1 % Predicted (test code = 5370) PEF % Change (test 6.6 % code = 5371) DLCO Pre (test code = 10.05 See_Comment [Auto mated message] 5404) The system [employer] generated this result transmitted ref erence range: 13.04 - 26.04 ml/(min*mmHg). The reference range was not used to interpr et this result as normal/abnormal . DLCO Predicted (test 19.54 code = 5421) DLCO LLN (test code = 13.04 5422) DLCO % Pre of 51.5 % Predicted (test code = 5424) DL/VA Pre (test code = 2.85 See_Comment [Aut omated message] 5437) The system [employer] generated this result transmitted ref erence range: 2.94 - 5 .57 ml/(min*mmHg*L) . The reference range was not used to interpr et this result as normal/abnormal . DL/VA Predicted (test 4.26 code = 5435) DL/VA LLN (test code = 2.94 5436) DL/VA % Pre of 66.9 % Predicted (test code = 5438) VA SB Pre (test code = 3.53 L 3.80-6.00 5444) VA SB Predicted (test 4.90 code = 5442) VA SB LLN (test code = 3.80 5443) VA SB % Pre of 72.1 % Predicted (test code = 5445) [id number] 22:40:55 Test Item Value Reference Interpretation Comments Range Interpretation Negative results do (test code = not preclude COVID-19 [id number]) infection and should not be used asthe sole basis for treatment or other patient management decisions. Negativeresults must be combined with clinical observations, patient history, andepidemiological information. COVID-19 Not-Detected Not-Detected DISCLAIMER:This qualitative RT-PCR test was result (test code performed using = 96753-2) the [employer] SARS-CoV-2 Assa y ([email or web address]). This assay is available for i n vitro diagnosti c use under Food and Drug Administration (FDA) Emergency Use Authorizati on (EUA) and has been verified f or clinical use by the [facility]. Information on the FDA policy for diagnostic tests for coronavirus disease- 2019 i s available at:https://www. fd a.gov/medical-d ev ices/emergency- si tuations-medica l- devices/faqs-di ag nostic-testing- sa rs-cov-2It is critical that health care providers and patients review the applicable fact sheet(s) i n interpreting or understanding t he test results th at are available upon request.METHODO LO GY:This assay utilizes ivelisse ts for nucleic aci d extraction, amplification, and real-time reverse timber faller polymerase rancho n reaction. COVID-19 See link below for PDF Case Number: qualitative RT-PCR Lab Report [id number] PDF (test code = 7070) Jose WymanCOVID-19 qualitative [id number] 22:40:55 Test Item Value Reference Interpretation Comments Range Interpretation Negative results do (test code = not preclude COVID-19 [id number]) infection and should not be used asthe sole basis for treatment or other patient management decisions. Negativeresults must be combined with clinical observations, patient history, andepidemiological information. COVID-19 Not-Detected Not-Detected DISCLAIMER:This qualitative RT-PCR test was result (test code performed using = 45818-9) the [employer] m SARS-CoV-2 Assa y ([email or web address]). This assay is available for i n vitro diagnosti c use under Food and Drug Administration (FDA) Emergency Use Authorizati on (EUA) and has been verified f or clinical use by the [facility]. Information on the FDA policy for diagnostic tests for coronavirus disease- 2019 i s available at:https://www. fd a.gov/medical-d ev ices/emergency- si tuations-medica l- devices/faqs-di ag nostic-testing- sa rs-cov-2It is critical that health care providers and patients review the applicable fact sheet(s) i n interpreting or understanding t he test results th at are available upon request.METHODO LO GY:This assay utilizes reagen ts for nucleic aci d extraction, amplification, and real-time reverse timber faller polymerase rancho n reaction. COVID-19 See link below for PDF Case Number: qualitative RT-PCR Lab Report [id number] PDF (test code = 7070) [facility] [Presence] in Respiratory specimen by SHARIF with probe [id number] 16:40:55 Test Item Value Reference Range Interpretation Comments SARS-CoV-2 (COVID-19) RNA Not detected [Presence] in Respiratory specimen by SHARIF with probe detection (test code = 46997-9) Whether patient is employed in a Unknown healthcare setting (test code = 03900-4) Whether the patient has symptoms Unknown related to condition of interest (test code = 96470-3) Whether the patient was Unknown hospitalized for condition of interest (test code = 75656-4) Whether the patient was admitted Unknown to intensive care unit (ICU) for condition of interest (test code = 40969-3) Whether patient resides in a Unknown congregate care setting (test code = 00302-0) status (test code = Unknown 85298-5) Date and time of symptom onset Unknown (test code = 25768-8) [facility] With LDL/HDL [id number] 00:00:00 Test Item Value Reference Range Interpretation Comments Cholesterol, Total 229 mg/dL See_Comment H [Automat ed message] (test code = 2093-3) The s tem which generated this result transmitted ref erence range: 100-199 mg/dL. The reference r debbie was not used to interpret this result as normal/abnor mal. Triglycerides (test 200 mg/dL See_Comment H [Automa tom message] code = 2571-8) The system [employer] generated this result transmitted ref erence range: 0-149 mg /dL. The reference r debbie was not used to interpret this result as normal/abnor mal. HDL Cholesterol (test 56 mg/dL See_Comment [Auto mated message] code = 2085-9) The system [employer] generated this result transmitted ref erence range: >39 mg/d L. The reference range was not used to int erpret this result as normal/abnormal . Comp. Metabolic Panel (14) (CMP)2022-05-16 00:00:00 Test Item Value Reference Range Interpretation Comments Glucose (test code = 94 mg/dL See_Comment [Autom ated message] 2345-7) The system [facility] [employer] generated this result transmitted ref erence range: 65-99 mg /dL. The reference r debbie was not used to interpret this result as normal/abnor mal. BUN (test code = 18 mg/dL See_Comment [Automated message] 3094-0) The system [facility] [employer] generated this result transmitted ref erence range: 8-27 mg/ dL. The reference r debbie was not used to interpret this result as normal/abnor mal. Creatinine (test code 0.81 mg/dL See_Comment [Auto mated message] = 2160-0) The system [facility] generated this result transmitted ref erence range: 0.57-1.0 0 mg/dL. The refe rence range was not u sed to interpret this result as normal/abnor mal. BUN/Creatinine Ratio 22 12-28 (test code = 3097-3) Sodium (test code = 141 mmol/L See_Comment [Automa tom message] 0901-2) The system [facility] generated this result transmitted ref erence range: 134-144 mmol/L. The ref erence range was not u sed to interpret this result as normal/abnor mal. Potassium (test code = 3.8 mmol/L See_Comment [Aut omated message] 2553-3) The system [facility] generated this result transmitted ref erence range: 3.5-5.2 mmol/L. The ref erence range was not u sed to interpret this result as normal/abnor mal. Chloride (test code = 104 mmol/L See_Comment [Auto mated message] 2074-0) The system [facility] generated this result transmitted ref erence range: 96-106 m mol/L. The reference r debbie was not used to interpret this result as normal/abnor mal. Carbon Dioxide, Total 23 mmol/L See_Comment [Auto mated message] (test code = 2027-9) The [facility] tem which generated this result transmitted ref erence range: 20-29 mm ol/L. The reference r debbie was not used to interpret this result as normal/abnor mal. Calcium (test code = 9.5 mg/dL See_Comment [Autom ated message] 44416-1) The system [facility] generated this result transmitted ref erence range: 8.7-10.3 mg/dL. The refe rence range was not u sed to interpret this result as normal/abnor mal. Protein, Total (test 6.6 g/dL See_Comment [Autom ated message] code = 6445-2) The system [facility] generated this result transmitted ref erence range: 6.0-8.5 g/dL. The reference r debbie was not used to interpret this result as normal/abnor mal. Albumin (test code = 4.4 g/dL See_Comment [Autom ated message] 1751-7) The system [facility] generated this result transmitted ref erence range: 3.7-4.7 g/dL. The reference r debbie was not used to interpret this result as normal/abnor mal. Globulin, Total (test 2.2 g/dL See_Comment [Auto mated message] code = 71801-3) The system [facility] generated this result transmitted ref erence range: 1.5-4.5 g/dL. The reference r debbie was not used to interpret this result as normal/abnor mal. A/G Ratio (test code = 2.0 1.2-2.2 175-0) Bilirubin, Total (test <0.2 mg/dL See_Comment [Aut omated message] code = 1974-) The system [facility] generated this result transmitted ref erence range: 0.0-1.2 mg/dL. The reference r debbie was not used to interpret this result as normal/abnor mal. Alkaline Phosphatase 76 IU/L See_Comment [Autom ated message] (test code = 6768-6) The [facility] tem which generated this result transmitted ref erence range: 44-121 I U/L. The reference r debbie was not used to interpret this result as normal/abnor mal. AST (SGOT) (test code 16 IU/L See_Comment [Auto mated message] = 1920-8) The system [facility] generated this result transmitted ref erence range: 0-40 IU/ L. The reference range was not used to int erpret this result as normal/abnormal . ALT (SGPT) (test code 10 IU/L See_Comment [Auto mated message] = 1742-6) The system [facility] generated this result transmitted ref erence range: 0-32 IU/ L. The reference range was not used to int erpret this result as normal/abnormal . Uric Acid, [id number] 00:00:00 Test Item Value Reference Range Interpretation Comments Uric Acid (test 4.0 mg/dL See_Comment [Automated message] The code = 3084-1) system which generated this result tra nsmitted reference range : 3.1-7.9 mg/dL. The refe rence range was not u sed to interpret this result as normal/abnormal . CBC With Differential/[id number] 00:00:00 Test Item Value Reference Range Interpretation Comments WBC (test code = 6.6 x10E3/uL See_Comment [Automated 6690-2) message] The sy stem which generated this result transmitted reference range : 3.4-10.8 x10E3/ uL. The reference r debbie was not used to interpret this result as normal/abnormal . RBC (test code = 4.01 x10E6/uL See_Comment [Automate d 789-8) message] The sy stem which generated this [...] % Not Estab. % (test code = 34705-9) Immature Grans (Abs) 0.0 x10E3/uL See_Comment [Autom ated (test code = 22625-0) messag e] The system which generated this result transmitted reference range : 0.0-0.1 x10E3/u L. The reference r debbie was not used to interpret this result as normal/abnormal . NRBC (test code = 10577-1) Hematology Comments: (test code = 36527-0) TSH reflex to [id number] 00:00:00 Test Item Value Reference Range Interpretation Comments TSH (test code = 2.180 uIU/mL See_Comment [Automated message] The 40486-6) system which ge nerated this result tra nsmitted reference range : 0.450-4.500 uIU /mL. The reference range was not used to interpr et this result as normal/abnormal .
[2023-04-15 13:07] LABS: Absolute Lymphocytes (CBC) 1.8 K/uL (0.7-4.9); Hematocrit 40.1 % (36.0-45.0); Lymphocytes % 21.1 % (15.3-44.8); MCV 99.5 fL (80-100); MPV 9.4 fL (7.6-11.3); RBC Red Blood Cell Count 4.03 M/uL (3.86-4.86)
[2023-04-15 13:36] LABS: Potassium 3.3 mEq/L (3.5-5.1); Troponin High Sensitivity 10.1 pg/mL (<58.9)
--- NOTE | 2023-04-15 13:46 | RAD REPORT ---
EXAM DESCRIPTION: Rosaura Single View04/15/2023 1:39 pm CLINICAL HISTORY: Chest pain COMPARISON: February 2023 FINDINGS: The lungs appear clear of acute infiltrate. The heart is normal size IMPRESSION: No acute abnormalities displayed
--- NOTE | 2023-04-15 13:57 | ER ---
Nurse's Notes [facility] Name: Shwetha Chirinos Age: 77 yrs Sex: Female : 1945 Arrival Date: 04/15/2023 Time: 12:29 Bed 4 Private MD: Lonnie Gonzales Diagnosis: Chest pain, unspecified;Palpitations Presentation: 04/15 13:06 Chief complaint: Patient states: Mid-sternal chest pain upon waking this morning at ph 0900, also reports feeling lightheaded. denies SOB or nausea. Coronavirus screen: Vaccine status: Patient reports being unvaccinated. Ebola Screen: No symptoms or risks identified at this time. Initial Sepsis Screen: Does the patient meet any 2 criteria? No. Patient's initial sepsis screen is negative. Does the patient have a suspected source of infection? No. Patient's initial sepsis screen is negative. Risk Assessment: Do you want to hurt yourself or someone else? Patient reports no desire to harm self or others. Onset of symptoms was April 15, 2023. 13:06 Method Of Arrival: Ambulatory ph 13:06 Acuity: TAYLOR 3 ph Historical: - Allergies: 13:05 Codeine; ph - PMHx: 13:05 COPD; Hypertension; ph - PSHx: 13:05 Cholecystectomy; hysterectomy; ph - Immunization history:: Adult Immunizations unknown. - Social history:: Smoking status: Patient denies any tobacco usage or history of. - Family history:: not pertinent. - Hospitalizations: : No recent hospitalization is reported. Screenin:03 [facility] ED Fall Risk Assessment (Adult) History of falling in the last 3 months, ph including since admission No falls in past 3 months (0 pts) Confusion or Disorientation No (0 pts) Intoxicated or Sedated No (0 pts) Impaired Gait No (0 pts) Mobility Assist Device Used No (0 pt) Altered Elimination No (0 pt) Score/Fall Risk Level 0 - 2 = Low Risk Oriented to surroundings, Maintained a safe environment, Hourly rounding (assess needs \T\ fall precautionary measures) done. Abuse screen: Denies threats or abuse. Denies injuries from another. Nutritional screening: No deficits noted. Tuberculosis screening: No symptoms or risk factors identified. Assessment: 13:04 General: Appears in no apparent distress. comfortable, slender, well groomed, Behavior ph is calm, cooperative, appropriate for age. Pain: Complains of pain in chest. Pain: Complains of pain in mid-sternal area Pain does not radiate. Pain began 4 hours ago. Neuro: Level of Consciousness is awake, alert, obeys commands, Oriented to person, place, time, situation. Cardiovascular: Reports chest pain, lightheadedness, Denies nausea, palpitations, shortness of breath, Capillary refill < 3 seconds in bilateral fingers Patient's skin is warm and dry. Rhythm is sinus rhythm Chest pain is described as mild, quality is pressure, is located in substernal area began 4 hours prior to arrival. Respiratory: Airway is patent Respiratory effort is even, unlabored, Respiratory pattern is regular, symmetrical. GI: No signs and/or symptoms were reported involving the gastrointestinal system. Derm: Skin is pink, warm \T\ dry. 14:14 Reassessment: Patient appears in no apparent distress at this time. Patient and/or ph family updated on plan of care and expected duration. Pain level reassessed. Patient is alert, oriented x 3, equal unlabored respirations, skin warm/dry/pink. 15:00 Reassessment: Patient appears in no apparent distress at this time. Patient and/or ph family updated on plan of care and expected duration. Pain level reassessed. Patient is alert, oriented x 3, equal unlabored respirations, skin warm/dry/pink. 17:01 Reassessment: Patient appears in no apparent distress at this time. Patient and/or ph family updated on plan of care and expected duration. Pain level reassessed. Patient is alert, oriented x 3, equal unlabored respirations, skin warm/dry/pink. Report called to TORRES Milligan. Vital Signs: 12:35 BP 157 / 89; Pulse 80; Resp 20; Temp 97.9(O); Pulse Ox 98% on R/A; Pain 5/10; nj1 13:02 BP 157 / 89; Pulse 72; Resp 18; Pulse Ox 96% on R/A; ph 14:14 BP 174 / 88; Pulse 74; Resp 18; Pulse Ox 97% on R/A; ph 16:28 BP 158 / 78; Pulse 72; Resp 18; Temp 97.9; Pulse Ox 99% on R/A; ph 12:35 Pain Scale: Adult nj1 Vitals: 13:02 Cardiac Rhythm Assessment Sinus rhythm. ED Course: 12:32 Patient arrived in ED. mr 12:32 Lonnie Gonzales DO is Private Physician. mr 12:33 Nasir Martinez MD is Attending Physician. rn 12:35 Patient placed in an exam room, on product inspection coordinator, on pulse oximetry. nj1 12:46 Xu Mendosa, RN is Primary Nurse. 13:03 Arm band placed on. 13:03 Patient has correct armband on for positive identification. Bed in low position. Call light in reach. Side rails up X 1. Client placed on continuous cardiac and pulse oximetry monitoring. NIBP monitoring applied. Door closed. Noise minimized. Warm blanket given. 13:03 Initial lab(s) drawn, by me, sent to lab. Inserted saline lock: 20 gauge in left ph antecubital area, using aseptic technique. Blood collected. Patient maintains SpO2 saturation greater than 95% on room air. 13:07 Triage completed. 13:17 Aniyah Mantilla RN is Primary Nurse. jl7 13:41 XRAY Chest (1 view) In Process Unspecified. EDMS 13:58 Opal Lim MD is Hospitalizing Provider. rn 17:02 No provider procedures requiring assistance completed. Patient admitted, IV remains in ph place. Administered Medications: 15:35 Drug: Aspirin PO 325 mg Route: PO; ph 16:00 Follow up: Response: No adverse reaction ph Medication: 13:04 VIS not applicable for this client. Outcome: 13:57 Discharge ordered by . rn 13:58 Decision to Hospitalize by Provider. rn 17:02 Admitted to [facility] accompanied by [facility], via wheelchair, room 421. ph 17:02 Condition: stable 17:02 Instructed on the need for admit. 17:03 Patient left the ED. Signatures: Dispatcher [employer] EDWA Lynda Cuevas mr Nasir Martinez MD MD rn Blanchard, Shelby, RN RN Aniyah Mantilla RN RN Xu Mendosa, TORRES RN jl7 Britni Bustos RN RN nj1
--- NOTE | 2023-04-15 13:57 | EDPHYS ---
Physician Documentation [facility] Name: Shwetha Chirinos Age: 77 yrs Sex: Female : 1945 Arrival Date: 04/15/2023 Time: 12:29 Bed 4 Private MD: [facility] ED Physician Nasir Martinez HPI: 04/15 12:46 This 77 yrs old Female presents to ER via Unassigned with complaints of Chest Pressure. rn 12:46 The patient or guardian reports chest pain that is located primarily in the substernal rn area. Onset: this morning. The pain does not radiate. Associated signs and symptoms: Pertinent positives: palpitations, Pertinent negatives: cough, shortness of breath, syncope, vomiting. The chest pain is described as a heaviness, a pressure. Duration: The patient or guardian reports multiple episodes, that are intermittent. Modifying factors: The symptoms are alleviated by nothing. the symptoms are aggravated by nothing. Severity of pain: At its worst the pain was mild in the emergency department the pain is unchanged. The patient has experienced similar episodes in the past. Pt reports chest pressure and palpitations that began this morning, has had this before, no beds in hospital so was sent home at that time, still pending holter/ECHO/stress test. Does not feel ill, no fever. . Historical: - Allergies: 13:05 Codeine; ph - PMHx: 13:05 COPD; Hypertension; ph - PSHx: 13:05 Cholecystectomy; hysterectomy; ph - Immunization history:: Adult Immunizations unknown. - Social history:: Smoking status: Patient denies any tobacco usage or history of. - Family history:: not pertinent. - Hospitalizations: : No recent hospitalization is reported. ROS: 12:46 Constitutional: Negative for fever, chills, and weight loss, Eyes: Negative for injury, rn pain, redness, and discharge, Neck: Negative for injury, pain, and swelling, Cardiovascular: + palpitations and chest pressure Respiratory: Negative for shortness of breath, cough, wheezing, and pleuritic chest pain, Abdomen/GI: Negative for abdominal pain, nausea, vomiting, diarrhea, and constipation, MS/Extremity: Negative for injury and deformity, Skin: Negative for injury, rash, and discoloration, Neuro: Negative for headache, weakness, numbness, tingling, and seizure. Exam: 12:46 Constitutional: This is a well developed, well nourished patient who is awake, alert, rn and in no acute distress. Head/Face: Normocephalic, atraumatic. Cardiovascular: Regular rate and rhythm. No pulse deficits. Respiratory: No increased work of breathing, no retractions or nasal flaring. Abdomen/GI: Soft, non-tender Skin: Warm, dry MS/ Extremity: Pulses equal, no cyanosis. Neuro: Awake and alert, GCS 15 12:52 ECG was reviewed by the Attending Physician. rn Vital Signs: 12:35 BP 157 / 89; Pulse 80; Resp 20; Temp 97.9(O); Pulse Ox 98% on R/A; Pain 5/10; nj1 13:02 BP 157 / 89; Pulse 72; Resp 18; Pulse Ox 96% on R/A; ph 14:14 BP 174 / 88; Pulse 74; Resp 18; Pulse Ox 97% on R/A; ph 16:28 BP 158 / 78; Pulse 72; Resp 18; Temp 97.9; Pulse Ox 99% on R/A; ph 12:35 Pain Scale: Adult nj1 MDM: 12:33 Patient medically screened. rn 13:54 Differential diagnosis: acute myocardial infarction, acute pericarditis, anxiety, rn coronary artery disease chest wall pain, pleurisy, pneumothorax, stable angina, unstable angina. HEART Score: History: Moderately Suspicious (1), ECG: Non specific repolarization disturbance / LBTB / PM (1), Age: > or = 65 years (2), Risk Factors: 1 or 2 risk factors (1), Troponin: < or = 1 x Normal Limit (0), Total Score = 5. Data reviewed: vital signs, nurses notes, lab test result(s), EKG, radiologic studies, plain films, and as a result, I will admit patient. Consideration of Admission/Observation Patient was admitted/placed on observation. Escalation of care including admission/observation considered. Counseling: I had a detailed discussion with the patient and/or guardian regarding: the historical points, exam findings, and any diagnostic results supporting the discharge/admit diagnosis, lab results, the need for further work-up and treatment in the hospital. 13:54 ED course: Pt with neg trop, PVCs on monitor, no STEMI, symptoms worsening and outpt rn w/u attempted without studies performed yet. Will admit for further w/u. Pt also lives alone and expressed concern about being discharged again without w/u for her chest pain.. 04/15 12:46 Order name: Basic Metabolic Panel; Complete Time: 13:37 rn 04/15 12:46 Order name: CBC with Diff; Complete Time: 13:36 rn 04/15 12:46 Order name: NT PRO-BNP; Complete Time: 13:37 rn 04/15 12:46 Order name: Troponin HS; Complete Time: 13:37 rn 04/15 15:37 Order name: Magnesium [facility] 04/15 15:37 Order name: Phosphorus [facility] 04/15 15:37 Order name: T4 Free [facility] 04/15 15:37 Order name: Thyroid Stimulating Hormone [facility] 04/15 15:37 Order name: Urinalysis w/ reflexes [facility] 04/15 15:37 Order name: CBC with Automated Diff [facility] 04/15 15:37 Order name: CBC with Automated Diff [facility] 04/15 15:37 Order name: Comprehensive Metabolic Panel [facility] 04/15 15:37 Order name: Comprehensive Metabolic Panel [facility] 04/15 15:37 Order name: Lipid Profile [facility] 04/15 15:37 Order name: Lipid Profile [facility] 04/15 15:37 Order name: NT PRO-BNP [facility] 04/15 15:37 Order name: NT PRO-BNP [facility] 04/15 12:46 Order name: XRAY Chest (1 view); Complete Time: 13:46 04/15 12:46 Order name: EKG; Complete Time: 12:46 04/15 15:37 Order name: CONS Physician Consult [facility] 04/15 15:37 Order name: Heart Healthy [facility] 04/15 12:46 Order name: Cardiac monitoring; Complete Time: 12:57 rn 04/15 12:46 Order name: EKG - Nurse/Tech; Complete Time: 12:58 rn 04/15 12:46 Order name: IV Saline Lock; Complete Time: 13:02 rn 04/15 12:46 Order name: Labs collected and sent; Complete Time: 13:02 rn 04/15 12:46 Order name: O2 Per Protocol; Complete Time: 12:58 rn 04/15 12:46 Order name: O2 Sat Monitoring; Complete Time: 12:58 rn EC:52 Rate is 78 beats/min. Rhythm is regular. QRS [place] is Normal. [place] interval is normal. QRS rn interval is normal. QT interval is normal. No Q waves. T waves are Normal. No ST changes noted. Clinical impression: NSR w/ Non-specific ST/T Changes. Interpreted by me. Reviewed by me. Administered Medications: 15:35 Drug: Aspirin PO 325 mg Route: PO; ph 16:00 Follow up: Response: No adverse reaction ph Disposition Summary: 04/15/23 13:58 Hospitalization Ordered Hospitalization Status: Observation rn Provider: Opal Lim rn Location: Telemetry/MedSurg (observation)(04/15/23 13:58) rn Condition: Stable(04/15/23 13:58) rn Problem: an ongoing problem(04/15/23 13:58) rn Symptoms: are unchanged(04/15/23 13:58) rn Bed/Room Type: Standard rn Room Assignment: [facility](04/15/23 16:26) bd Diagnosis - Chest pain, unspecified(04/15/23 13:58) rn - Palpitations(04/15/23 13:58) rn Forms: - Medication Reconciliation Form rn - SBAR form rn Signatures: Dispatcher [employer] EDMS Inessa Obregon Roman, MD MD rn Hall, Patricia, RN RN ph Corrections: (The following items were deleted from the chart) 13:58 13:57 Home rn rn 13:58 13:57 new rn rn 13:58 13:57 have improved rn rn 13:58 13:57 Stable rn rn 13:58 13:57 Chest pain, unspecified rn rn 13:58 13:57 Palpitations rn rn 16:26 13:58 rn bd
[2023-04-15] MEDS ORDERED: ACETAMINOPHEN 325 MG TABLET PO PRN (15:30)
[2023-04-15] MEDS ORDERED: HYDROCODONE/APAP 5/325 MG TAB PO PRN (15:30)
[2023-04-15] MEDS ORDERED: ONDANSETRON 4 MG/2 ML VIAL IV PRN (15:35)
[2023-04-15] MEDS ORDERED: ASPIRIN EC 81 MG TAB PO ONE (15:40)
[2023-04-15] MEDS ORDERED: ASPIRIN 81 MG CHEWABLE TABLET ONE (15:41)
--- NOTE | 2023-04-15 15:52 | P.HP ---
Certification for Inpatient Patient admitted to: Observation With expected LOS: <2 Midnights Patient will require the following post-hospital care: None Practitioner: I am a practitioner with admitting privileges, knowledge of patient current condition, hospital course, and medical plan of care. Services: Services provided to patient in accordance with Admission requirements found in Title 42 Section 412.3 of the Code of Federal Regulations Patient History Date of Service: 04/15/23 Reason for admission: Chest pain and palpitations History of Present Illness: Patient is a 77-year-old female with a past medical history significant for COPD, hypertension, GERD presents with complaint of substernal chest pain and palpitations onset this morning. Patient rated pain as 5/10 in severity and described pain as pressure in quality. Patient reported that she had similar symptoms 4 weeks ago. Patient reported that she followed up with her car diologist who wanted to conduct a stress test and get an echocardiogram done. Patient reported associated signs and symptoms of shortness of breath. Patient denies any other signs and symptoms. Symptoms are aggravated or relieved by nothing. Patient decided to present to the hospital for medical evaluation. Allergies codeine Allergy (Verified 02/22/23 08:00) "Crazy feeling" Home Medications: Omeprazole [Prilosec] 40 mg PO DAILY 07/31/19 Acetaminophen [Tylenol Extra Strength] 500 mg PO PRN PRN 02/21/23 Rivastigmine Tartrate [Rivastigmine] 3 mg PO DAILY 02/21/23 - Past Medical/Surgical History Diabetic: No -: COPD -: GERD -: Hyperlipidemia -: Crohn's disease -: Cholecystectomy -: Hysterectomy -: tonsillectomy Psychosocial/ Personal History: Patient is retired and lives alone - Social History Smoking Status: Former smoker Alcohol use: No CD- Drugs: No Caffeine use: Yes Place of Residence: Home Review of Systems General: Unremarkable Eyes: Unremarkable ENT: Unremarkable Respiratory: Shortness of Breath Cardiovascular: Chest Pain, Palpitations Gastrointestinal: Unremarkable Genitourinary: Unremarkable Musculoskeletal: Unremarkable Integumentary: Unremarkable Neurological: Unremarkable Lymphatics: Unremarkable Physical Examination - Physical Exam General: Alert, In no apparent distress, Oriented x3, Cooperative HEENT: Atraumatic, PERRLA, Mucous membr. moist/pink, EOMI, Sclerae nonicteric Neck: Supple, 2+ carotid pulse no bruit, No LAD, Without JVD or thyroid abnormality Respiratory: Clear to auscultation bilaterally, Normal air movement Cardiovascular: No edema, Regular rate/rhythm, Normal S1 S2 Capillary refill: <2 Seconds Gastrointestinal: Normal bowel sounds, Soft and benign, Non-distended, No tenderness Musculoskeletal: No clubbing, No swelling, No tenderness Integumentary: No rashes, No significant lesion Neurological: Normal speech, Normal tone, Normal affect Lymphatics: No axilla or inguinal lymphadenopathy - Studies Laboratory Data (last 24 hrs) 04/15/23 13:00: WBC 8.40, Hgb 13.2, Hct 40.1, Plt Count 208 04/15/23 13:00: Sodium 142, Potassium 3.3 L, BUN 23 H, Creatinine 0.82, Glucose 95 Assessment and Plan - Plan --Chest pain. To rule out ACS. Will trend serial troponin--negative so far. Cardiology consulted. Echocardiogram pending to assess cardiac structures and function. Telemetry to monitor for any significant arrhythmia. We will await further recommendation from customs examiner. --Elevated BNP.--559. Echocardiogram pending to assess cardiac structures and function. Continue supportive care. --Palpitations. Echocardiogram pending. Telemetry to monitor for any significant arrhythmia. --Hypokalemia. Replete as needed. --COPD. Stable. Continue home medication. --GERD. Continue home medication. --CKD 2. Stable. We will continue to monitor renal functions. --History of Crohn's disease. Stable. Continue supportive care. --DVT prophylaxis with Lovenox subQ. Discharge Plan: Home Plan to discharge in: 48 Hours - Advance Directives Does patient have a Living Will: No Does patient have a Durable POA for Healthcare: No - Code Status/Comfort Care Code Status Assessed: Yes Physician Review: Patient Assessed, Agree with Above Assessment and Plan Critical Care: No
[2023-04-15 16:55] LABS: Phosphorus 3.4 mg/dL (2.5-4.9)
[2023-04-15 16:57] LABS: Thyroid Stimulating Hormone 6.12 uIU/mL (0.358-3.740)
[2023-04-15] MEDS ORDERED: POTASSIUM CL SA 10 MEQ TAB PO ONE (17:21)
[2023-04-15 17:36] VITALS: BMI 20.5
[2023-04-15] MEDS: ENOXAPARIN 40 MG/0.4 ML SQ SCH (18:49)
[2023-04-15 19:28] LABS: Specific Gravity 1.012 (1.005-1.030); Urine Bilirubin NEGATIVE (Negative); Urine Blood Negative (Negative); Urine Clarity Clear (Clear); Urine Color Colorless (Yellow); Urine Glucose NEGATIVE (Negative); Urine Protein NEGATIVE (Negative); Urine Urobilinogen Normal (Normal); Urine pH 6.5 (5.0-7.0)
--- NOTE | 2023-04-15 19:46 | CON ---
Date of Consultation: 04/15/2023 Reason For Consultation: She is here for chest pain and palpitations. History Of Present Illness: A 77-year-old female, history of hypertension, acid reflux, and GERD, dy slipidemia, presented with chest pain, pressure like with activities and shortness of breath, also pa lpitations. I saw her in the office recently and had similar complaints and scheduled for a stress t est and echo, which was supposed to have them done this week, but symptoms became more frequent and s he presented to the emergency room. Past Medical History: As outlined above in the HPI. Medications: Refer to reconciliation sheet for detailed list. Allergies: CODEINE. Family History: No premature coronary artery disease or cancer. Social History: She does not smoke or drink. Does not use any drugs. Review of Systems: All systems reviewed and they were negative except what mentioned in HPI. Physical Examination: Vital Signs: Reviewed. Head and Neck: Pupils are equal, reactive to light. Intact eye movements. No JVD. No cervical lym phadenopathy. Neck is supple. Thyroid is not enlarged. Lungs: Clear to auscultation bilaterally. No rhonchi, wheezing, or crackles. No accessory muscle u se. Heart: Regular rate and rhythm. No extra sounds. Abdomen: Soft, nontender. Bowel sounds positive. No organomegaly. No masses or hernia. No rigidi ty or rebound. Extremities: No edema, clubbing, or cyanosis. Intact pulses. Skin: No rash. Neurologic: Alert, awake, oriented x3. No acute focal deficits appreciated. Investigations: Troponin 10.1. NT-proBNP is 559. BUN is 23, creatinine 0.8, white blood cell count is 8.4, and hemoglobin 13.2. Assessment And Recommendations: 1.Chest pain. First set of cardiac enzymes negative. She has been having more frequent chest pain. Admit due to 2 more sets of cardiac enzymes. If they remain negative, then plan for a stress test and an echo tomorrow. Start baby aspirin 81 mg daily and further plan according to the troponin luis wells 2.Palpitation. Please monitor the patient on telemetry for any arrhythmia. 3.Hypertension. Blood pressure is controlled. SR/MODL Voice ID: [id number] Report ID: [id number]
[2023-04-16 03:38] VITALS: O2SAT 95
[2023-04-16 06:37] LABS: Absolute Lymphocytes (CBC) 1.8 K/uL (0.7-4.9); Hematocrit 38.7 % (36.0-45.0); Lymphocytes % 27.3 % (15.3-44.8); MCV 99.9 fL (80-100); MPV 9.4 fL (7.6-11.3); RBC Red Blood Cell Count 3.87 M/uL (3.86-4.86)
[2023-04-16 06:49] LABS: Albumin 3.1 g/dL (3.4-5.0); Bilirubin Total 0.4 mg/dL (0.2-1.0); Potassium 3.6 mEq/L (3.5-5.1); Protein, Total 6.6 g/dL (6.4-8.2)
[2023-04-16] MEDS: ENOXAPARIN 40 MG/0.4 ML SQ SCH (08:38)
[2023-04-16] MEDS ORDERED: ASPIRIN 81 MG CHEWABLE TABLET PO SCH (09:00)
[2023-04-16 09:10] VITALS: BP 120/65; TEMP 97
--- NOTE | 2023-04-16 10:15 | P.DS ---
Admission Date: 04/15/23 Discharge Date: 04/16/23 Disposition: ROUTINE DISCHARGE Discharge Condition: FAIR Reason for Admission: Chest pain and palpitations Consultations: Cardiology Brief History of Present Illness: Patient is a 77-year-old female with a past medical history significant for COPD, hypertension, GERD presents with complaint of substernal chest pain and palpitations onset this morning. Patient rated pain as 5/10 in severity and described pain as pressure in quality. Patient reported that she had similar symptoms 4 weeks ago. Patient reported that she followed up with her card iologist who wanted to conduct a stress test and get an echocardiogram done. Patient reported associated signs and symptoms of shortness of breath. Patient denies any other signs and symptoms. Symptoms are aggravated or relieved by nothing. Patient decided to present to the hospital for medical evaluation. Hospital Course: Patient is a 77-year-old female with a past medical history significant for COPD, hypertension, GERD who presentd with complaint of substernal chest pain and palpitations. Cardiology was consulted. Serial troponins were negative. At time of assessment patient denied chest pain or palpitations. Patient was seen and cleared by manager cash for discharge. Patient has a scheduled stress test and echocardiogram outpatient in 2 days. Revenue Director recommended that patient be discharged and that patient should follow-up with him outpatient for scheduled stress test and echocardiogram. Patient instructed to follow-up with her PCP and manager cash. Patient verbalized understanding of discharge instructions and was discharged in stable condition. Vital Signs/Physical Exam: Temp Pulse Resp BP Pulse Ox 97 F 64 16 120/65 93 04/16/23 08:00 04/16/23 08:00 04/16/23 08:00 04/16/23 08:00 04/16/23 08:00 Laboratory Data at Discharge: WBC 6.70 thou/uL (4.3-10.9) 04/16/23 05:50 Hgb 12.8 g/dL (12.0-15.0) 04/16/23 05:50 Hct 38.7 % (36.0-45.0) 04/16/23 05:50 Plt Count 179 thou/uL (152-406) 04/16/23 05:50 Sodium 141 mEq/L (136-145) 04/16/23 05:50 Potassium 3.6 mEq/L (3.5-5.1) 04/16/23 05:50 BUN 21 mg/dL (7-18) H 04/16/23 05:50 Creatinine 0.66 mg/dL (0.55-1.02) 04/16/23 05:50 Glucose 96 mg/dL (74-106) 04/16/23 05:50 Phosphorus 3.4 mg/dL (2.5-4.9) 04/15/23 13:00 Magnesium 2.0 mg/dL (1.6-2.4) 04/15/23 13:00 Total Bilirubin 0.4 mg/dL (0.2-1.0) 04/16/23 05:50 AST 12 U/L (15-37) L 04/16/23 05:50 ALT 15 U/L (13-56) 04/16/23 05:50 Alkaline Phosphatase 65 U/L (45-117) 04/16/23 05:50 Triglycerides 148 mg/dL (<150) 04/16/23 05:50 Cholesterol 213 mg/dL (<200) H 04/16/23 05:50 HDL Cholesterol 55 mg/dL (40-60) 04/16/23 05:50 Cholesterol/HDL Ratio 3.87 04/16/23 05:50 Home Medications: Omeprazole [Prilosec] 40 mg PO DAILY 07/31/19 Acetaminophen [Tylenol Extra Strength] 500 mg PO PRN PRN 02/21/23 Rivastigmine Tartrate [Rivastigmine] 3 mg PO DAILY 02/21/23 Diet: HH Activity: Weight bearing as tolerated Followup: Lonnie Gonzales DO [Primary Care Provider] - 1 Week Rudy Dejesus MD [ACTIVE - CAN ADMIT] - 1-2 Days
--- NOTE | 2023-04-16 20:40 | EKG ---
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
== END 2023-04-16 11:37 | disposition home or self-care (01) | DRG 309 ==
LOC: ER 12:29 → ERHOLD 15:29 → 4TH 16:52
PROVIDERS: ADMIT Hospitalist; ATTEND Hospitalist
DX: R00.2 Palpitations (principal); K50.90 Crohn's disease, unspecified, without complications; R07.9 Chest pain, unspecified; E87.6 Hypokalemia; I12.9 Hypertensive chronic kidney disease with stage 1 through stage 4 chronic kidney disease, or unspecified chronic kidney disease; N18.2 Chronic kidney disease, stage 2 (mild); J44.9 Chronic obstructive pulmonary disease, unspecified; K21.9 Gastro-esophageal reflux disease without esophagitis; R06.02 Shortness of breath; E78.5 Hyperlipidemia, unspecified; Z79.899 Other long term (current) drug therapy; Z88.5 Allergy status to narcotic agent; Z87.891 Personal history of nicotine dependence; Z90.49 Acquired absence of other specified parts of digestive tract; Z90.710 Acquired absence of both cervix and uterus
CPT/HCPCS: 36415; 71045; 80048; 80053; 80061; 81003; 83735; 83880; 84100; 84439; 84443; 84484; 85025; 93005; 99285; J1650

== ENCOUNTER 2023-08-18 16:03 | Emergency (ER) | payer OTHER, MEDICARE ==
--- OUTSIDE RECORDS SUMMARY | 2023-08-18 16:12 | XMS REPORT | Continuity of Care Document ---
:1945 Author Organization [facility] t Address [address] [place] [address] Care Team Providers Name Role Phone Umair Ferrera MD, Jony Knight Primary Care Physician [phone] Lonnie Gonzales Attending Clinician Unavailable LAURA HARVEY Attending Clinician Unavailable [email or web address] Attending Clinician Unavailable Scott Partida MD Attending Clinician Alecia Watts MD Attending Clinician Marti Live NP Attending Clinician TREMAINE CHAUDHRY Attending Clinician Unavailable TREMAINE CHAUDHRY Attending Clinician Unavailable Tremaine Chaudhry MD Attending Clinician Jarrell MACDONALD, Miki Attending Clinician Unavailable KRISTY RUVALCABA Attending Clinician Unavailable Kristy Ruvalcaba PA-C Attending Clinician Unknown, Attending Attending Clinician Unavailable Harsh Lomeli MD Attending Clinician Ellie Ward MD Attending Clinician Susan Alvarado MA Attending Clinician Unavailable Cisco Sexton PA-C Attending Clinician VIRGINIA COMBS Attending Clinician Unavailable Silvia Ledbetter Attending Clinician Unavailable Tracy Ron MA Attending Clinician Unavailable Reed Almendarez MD Attending Clinician REED ALMENDAREZ Attending Clinician Unavailable REED ALMENDAREZ Attending Clinician Unavailable Clive VAZ, Taco Kumar Attending Clinician Dunia MACDONALD, Lesly Attending Clinician Unavailable Doctor Unassigned, [place] Attending Clinician Unavailable 1, [facility] Bed Attending Clinician Unavailable Tejal Vital MD Attending Clinician [phone] Chris VAZ, Ariana Luna Attending Clinician Radha Arenas MA Attending Clinician Unavailable Moriah Celestin MA Attending Clinician Unavailable Lab, Ang - Db Attending Clinician Unavailable BLANCA MEJIA Attending Clinician Unavailable TEJAL VITAL Attending Clinician Unavailable Virginia El Attending Clinician INDIRA DHILLON Attending Clinician Unavailable LAURA HARVEY Admitting Clinician Unavailable [email or web address]_S Admitting Clinician Unavailable ABDOULAYE DAO Admitting Clinician Unavailable TREMAINE CHAUDHRY Admitting Clinician Unavailable Payers Payer Name Policy Type Policy Number Effective Date Expiration Date S abdulkadir MEDICARE PART A [id number] 2012 \T\ B 00:00:00 [employer] [id number] 2019 HEALTHCARE 00:00:00 MEDICARE SUPPLEMENT MEDICARE [facility] [id number] 2012 Common 00:00:00 [facility] AARP C1 [id number] 2018 Common 00:00:00 [facility] Problems Condition Condition Condition Status Onset Resolution Last Treating Co mments Source Name Details Category Date Date Treatment Clinician Date COPD COPD Disease Active Methodi exacerbati exacerbati 11-22 on on 00:00: Hospita 00 l Arthritis Arthritis Disease Active Overview: Univers Formattin ity of g of this [place] note Medical might be Branch different from the original. mainly in hands/fin gers GERD GERD Disease Active Univers (gastroeso (gastroeso it y of phageal phageal [place] reflux reflux Medical disease) disease) Branch [id number] Dementia Problem Commo n without Spirit behavioral - [facility] unspecifie Medica l d dementia Center type [id number] Daytime Problem Comm on 00 somnolence Spirit - [facility] [id number] Memory Problem Common change Spirit - [facility] Crohns Crohn''s Problem Common disease disease Spirit [facility] gastrointe stinal tract location [id number] Age Problem Common related Spirit osteoporos - [facility] al fracture presence [id number] Chronic Problem Common obstructiv [facility] e - [facility] pulmonary [facility] unspecifie Medica l d COPD Center type Mental Mental Problem Common retardatio deficiency Sp ilia n - [facility] [id number] GERD Problem Common without Spirit esophagiti - [facility] s [facility] [id number] Basal cell Problem Co mmon carcinoma [facility] of nose - [facility] [id number] Mixed Problem Common hyperlipid Spirit emia [facility] [id number] Essential Problem Comm on (primary) Spirit hypertensi - [facility] on [facility] Allergies, Adverse Reactions, Alerts Allergy Allergy Status [...] s to drug CODEINE DRUG Active Other-Cmnt Unive rs INGREDI 02-09 ity of 00:00: [place] [facility] Codeine Codeine Active dizziness Commo n [facility] - [facility] Social History Social Habit Start Date Stop Date Quantity Comments Source Gender identity [facility] [place] [facility] Sexual orientation [facility] History of Tobacco Common Spirit - Use [facility] Sex Assigned At Common Sp ilia - [facility] Alcohol intake 2023-07-10 2023-07-10 Current [employer] 00:00:00 00:00:00 non-drinker of Hospital alcohol (finding) History of Social 2023-07-10 2023-07-[address] function 00:00:00 00:00:00 Hospital Exposure to 2022-10-21 2022-10-31 Not sure University of SARS-CoV-2 (event) 00:00:00 13:47:00 [facility] Cigarettes smoked 2021-10-25 2021-10-[address] current (pack per 00:00:00 00:00:00 Hospita l day) - Reported Cigarette 2021-10-25 2021-10-25 [facility] pack-years 00:00:00 00:00:00 Hospital Tobacco use and 2021-10-25 2021-10-25 Smokeless [facility] exposure 00:00:00 00:00:00 tobacco non-user Hospital Alcohol Comment 2020-05-23 2020-05-23 seldom Universit y of 00:00:00 00:00:00 [place] [facility] History [facility] 2020-05-23 2020-05-23 99 University o f Alcohol Frequency 00:00:00 00:00:00 [facility] edical Branch History SDNE 2020-05-23 2020-05-23 99 University o f Alcohol Std Drinks 00:00:00 00:00:00 [place] [facility] History [facility] 2020-05-23 2020-05-23 99 [place] o f Alcohol Binge 00:00:00 00:00:00 [place] [facility] Smoking Status Start Date Stop Date Source Ex-smoker 2021-10-25 00:00:00 2021-10-25 00:00:00 [facility] Medications Ordered Filled Start Stop Current Ordering Indication Dosage Frequency Signature Comments Components Source Medication Medication Date Date Medication? Clinician (SIG) Name Name omeprazole Yes 40mg QD Take 1 Metho di (PriLOSEC) 9-[address] 40 MG 10:53: (40 mg Hospita capsule 18 total) by l mouth daily. acetaminoph Yes QD Take by Met hodi en (TYLENOL 9-[address] ORAL) 10:53: daily. Hospita 18 l meloxicam 2022- No [id number] 15mg QD Take 1 Methodi (MOBIC) 15 8-10 09-10 tablet (15 st mg tablet 00:00: 04:59 mg total) Ho spita 00 :00 by mouth l daily for 30 days. Rosuvastati Rosuvastati No 1{table QD Rosuvastat n Calcium 5 n Calcium 5 7-21 t} in Calcium MG MG 00:00: 5 MG 00 Rosuvastati Rosuvastati No 1{table QD Rosuvastat n Calcium 5 n Calcium 5 7-21 t} in Calcium MG MG 00:00: 5 MG 00 Rosuvastati Rosuvastati No 1{table QD Rosuvastat n Calcium 5 n Calcium 5 7-21 t} in Calcium MG MG 00:00: 5 MG 00 Rosuvastati Rosuvastati No 1{table QD Rosuvastat n Calcium 5 n Calcium 5 7-21 t} in Calcium MG MG 00:00: 5 MG 00 fluticasone 0 Yes [id number] 2{spray Use 2 Univers propionate 7-06 } Sprays in ity of 50 00:00: each [place] mcg/actuati 00 nostril in Me dical on nasal the Branch spray morning. benzonatate 2022-0 Yes [id number] 100mg Take 1 Univers (TESSALON 7-06 capsule by ity of PERLES) 100 00:00: mouth [place] mg capsule 00 every 8 Medica l (eight) Branch hours as needed for Cough. fluticasone 2022-0 Yes [id number] 2{spray Use 2 Univers propionate 7-06 } Sprays in ity of 50 00:00: each [place] mcg/actuati 00 nostril in Me dical on nasal the Branch spray morning. benzonatate 2022-0 Yes [id number] 100mg Take 1 Univers (TESSALON 7-06 capsule by ity of PERLES) 100 00:00: mouth [place] mg capsule 00 every 8 Medica l (eight) Branch hours as needed for Cough. fluticasone 2022- Yes [id number] 2{spray Use 2 Univers propionate 7-06 } Sprays in ity of 50 00:00: each [place] mcg/actuati 00 nostril in Me dical on nasal the Branch spray morning. benzonatate 2023-0 Yes [id number] 100mg Take 1 Univers (TESSALON 7-06 capsule by ity of [facility]) 100 00:00: mouth [place] mg capsule 00 every 8 Medica l (eight) Branch hours as needed for Cough. omeprazole 2023-0 Yes 40mg QD Take 1 Metho di (PriLOSEC) 6-[address] 40 MG 12:05: (40 mg Hospita capsule 51 total) by l mouth daily. acetaminoph 2023-0 Yes QD Take by Met hodi en (TYLENOL 6-[address] ORAL) 12:05: daily. Hospita 51 l fluticasone 2023-0 2023- No QD Inhale 1 M ethodi -umeclidin- 6-20 -19 inhalation s t vilanter 00:00: 04:59 s once Hospit a (TRELEGY 00 :00 daily for l ELLIPTA) 90 days. 200-62.5-25 mcg blister with device fluticasone 2023-0 2023- No QD Inhale 1 M ethodi -umeclidin- 6-20 -19 inhalation s t vilanter 00:00: 04:59 s once Hospit a (TRELEGY 00 :00 daily for l ELLIPTA) 90 days. 200-62.5-25 mcg blister with device omeprazole 2023-0 Yes 40mg QD Take 1 Metho di (PriLOSEC) 5-[address] 40 MG 11:08: (40 mg Hospita capsule 38 total) by l mouth daily. acetaminoph 2023-0 Yes QD Take by Met hodi en (TYLENOL 5-[address] ORAL) 11:08: daily. Hospita 38 l fluticasone 2023-0 2023- No QD Inhale 1 M ethodi furoate-ko 3- 05-17 inhalation s t anteroL 00:00: 00:00 s [...] QD Inhale 1 M ethodi furoate-ko 12-27 05-17 inhalation s t anteroL 00:00: 00:00 s [...] inhaler hours as needed for wheezing. cyclobenzap 2022-0 2023- No 5mg Q.[id number] Take 1 Methodi rine 2-15 01- [id number] tablet (5 st (FLEXERIL) 00:00: 04:59 3D mg total) H ospita 5 mg tablet 00 :00 by mouth 3 l (three) times a day as needed for muscle spasms for up to 30 days. cyclobenzap 2023-0 2023- No 5mg Q.[id number] Take 1 Methodi rine 2-15 01- [id number] tablet (5 st (FLEXERIL) 00:00: 04:59 3D mg total) H ospita 5 mg tablet 00 :00 by mouth 3 l (three) times a day as needed for muscle spasms for up to 30 days. cyclobenzap 2022-0 3- No 5mg Q.[id number] Take 1 Methodi rine 12-18 [id number] tablet (5 st (FLEXERIL) 00:00: 04:59 3D mg total) H ospita 5 mg tablet 00 :00 by mouth 3 l (three) times a day as needed for muscle spasms for up to 30 days. Ondansetron Ondansetron 2022-0 No 1{table Ondansetro HCl 4 MG HCl 4 MG 2-15 t} n HCl 4 MG 00:00: 00 Dicyclomine Dicyclomine 2022-0 No Dicyclomin HCl 10 MG HCl 10 MG 2-15 e HCl 10 00:00: MG 00 Ondansetron Ondansetron 3-0 No 1{table Ondansetro HCl 4 MG HCl 4 MG 2-15 t} n HCl 4 MG 00:00: 00 Dicyclomine Dicyclomine 3-0 No Dicyclomin HCl 10 MG HCl 10 MG 2-15 e HCl 10 00:00: MG 00 Ondansetron Ondansetron 3-0 No 1{table Ondansetro HCl 4 MG HCl 4 MG 2-15 t} n HCl 4 MG 00:00: 00 Dicyclomine Dicyclomine 3-0 No Dicyclomin HCl 10 MG HCl 10 MG 2-15 e HCl 10 00:00: MG 00 Ondansetron Ondansetron 3-0 No 1{table Ondansetro HCl 4 MG HCl 4 MG 2-15 t} n HCl 4 MG 00:00: 00 Dicyclomine Dicyclomine 3-0 No Dicyclomin HCl 10 MG HCl 10 MG 2-15 e HCl 10 00:00: MG 00 rosuvastati 2022-0 2022- No Crestor 40 Methodi n (CRESTOR) 2 02-[address] 40 MG 15:53: 00:00 Hospita tablet 32 :00 l rosuvastati 2022-0 2022- No Crestor 40 Methodi n (CRESTOR) 2 02-[address] 40 MG 15:53: [...] HFA) 90 inhaler mcg/actuati on inhaler fluticasone 2022-0 Yes QD Inhale 1 Me [...] blister with device ipratropium 2022-0 2022- No [id number] 3mL Q.25D Take 3 mL Methodi -albuteroL 11-22 03-[address] (DUO-NEB) 00:00: 05:59 nebulizati H ospita 0.5-2.5 00 :00 on 4 l mg/3 mL (four) nebulizer times a day for 30 days. ipratropium 2023-0 3- No [id number] 3mL Q.25D Take 3 mL Methodi -albuteroL 212-23 by (Rupture) 00:00: 05:59 nebulizati H ospita 0.5-2.5 00 :00 on 4 l mg/3 mL (four) nebulizer times a day for 30 days. ipratropium 2023-0 3- No [id number] 3mL Q.25D Take 3 mL Methodi -albuteroL 11-22 by (Rupture) 00:00: 05:59 nebulizati H ospita 0.5-2.5 00 :00 on 4 l mg/3 mL (four) nebulizer times a day for 30 days. ipratropium 2023-0 2022- No [id number] 3mL Q.25D Take 3 mL Methodi -albuteroL 211-22 by (Rupture) 00:00: 00:00 nebulizati H ospita 0.5-2.5 00 :00 on 4 l mg/3 mL (four) nebulizer times a day. ipratropium 3-0 3- No [id number] 3mL Q.25D Take 3 mL Methodi -albuteroL 211-22 by (YanadoO-streamOnce) 00:00: 00:00 nebulizati H ospita 0.5-2.5 00 :00 on 4 l mg/3 mL (four) nebulizer times a day. ipratropium 2023-0 3- No [id number] 3mL Q.25D Take 3 mL Methodi -albuteroL 211-22 by (Rupture) 00:00: 00:00 nebulizati H ospita 0.5-2.5 00 :00 on 4 l mg/3 mL (four) nebulizer times a day. traMADoL 2023-0 3- No [id number] 50mg Q4H Take 1 Metho di (ULTRAM) 50 1-24 02-03 tablet (50 s t mg tablet 00:00: 00:00 mg total) Ho spita 00 :00 by mouth l every 4 (four) hours as needed for moderate pain for up to 20 days .acute pain. traMADoL 2022- No [id number] 50mg Q4H Take 1 Metho di (ULTRAM) 50 11-13-03 tablet (50 s t mg tablet 00:00: 00:00 mg total) Ho spita 00 :00 by mouth l every 4 (four) hours as needed for moderate pain for up to 20 days .acute pain. traMADoL 2022- No [id number] 50mg Q4H Take 1 Metho di (ULTRAM) 50 11-13- tablet (50 s t mg tablet 00:00: 00:00 mg total) Ho spita 00 :00 by mouth l every 4 (four) hours as needed for moderate pain for up to 20 days .acute pain. donepeziL 2021-10 Yes Methodi (ARICEPT) 2- st 10 MG 00:00: Hospita tablet 00 l donepeziL 2021-10 Yes Methodi (ARICEPT) 2- st 10 MG 00:00: Hospita tablet 00 l donepeziL 2021-10 Yes Methodi (ARICEPT) 2- st 10 MG 00:00: Hospita tablet 00 l donepeziL 2021-10 Yes [id number] 10mg Take 1 Un oren (ARICEPT) 2-09 tablet by ity o f 10 mg 00:00: mouth at [place] tablet 00 bedtime. Medical Branch donepeziL 2021-10 Yes [id number] 10mg Take 1 Un oren (ARICEPT) 2-09 tablet by ity o f 10 mg 00:00: mouth at [place] tablet 00 bedtime. Medical Branch donepeziL 2021-10 Yes [id number] 10mg Take 1 Un oren (ARICEPT) 2-09 tablet by ity o f 10 mg 00:00: mouth at [place] tablet 00 bedtime. Medical Branch donepeziL 2021-10 Yes [id number] 10mg Take 1 Un oren (ARICEPT) 2-09 tablet by ity o f 10 mg 00:00: mouth at [place] tablet 00 bedtime. Medical Branch donepeziL 2021-10 Yes [id number] 10mg Take 1 Un oren (ARICEPT) 2-09 tablet by ity o f 10 mg 00:00: mouth at [place] tablet 00 bedtime. Medical Branch donepeziL 2021-10 Yes [id number] 10mg Take 1 Un oren (ARICEPT) 2-09 tablet by ity o f 10 mg 00:00: mouth at [place] tablet 00 bedtime. Medical Branch donepeziL 2021-10 Yes [id number] 10mg Take 1 Un oren (ARICEPT) 2-09 tablet by ity o f 10 mg 00:00: mouth at [place] tablet 00 bedtime. Medical Branch donepeziL 5 2021-10 Yes [id number] 5mg Take 1 Univers mg tablet 1-08 tablet by ity o f 00:00: mouth at [place] 00 bedtime. Medical Branch donepeziL 5 2021-10 Yes [id number] 5mg Take 1 Univers mg tablet 1-08 tablet by ity o f 00:00: mouth at [place] 00 bedtime. Medical Branch donepeziL 5 2021-10 Yes [id number] 5mg Take 1 Univers mg tablet 1-08 tablet by ity o f 00:00: mouth at [place] 00 bedtime. Medical Branch donepeziL 5 2021-10- No [id number] 5mg Take 1 Univers mg tablet 10-28- tablet by ity of 00:00: 00:00 mouth at [place] 00 :00 bedtime. Medical Branch donepeziL 5 2021-10- No [id number] 5mg Take 1 Univers mg tablet 10-28- tablet by ity of 00:00: 00:00 mouth at [place] 00 :00 bedtime. Medical Branch donepeziL 5 2021-10- No [id number] 5mg Take 1 Univers mg tablet 10-28-09 tablet by ity of 00:00: 00:00 mouth at [place] 00 :00 bedtime. Medical Branch rivastigmin Yes [id number] 1{patch Apply 1 Univers e 4.6 mg/24 06-29 } Patch to ity of [place] patch 00:[place] 00 the Medical morning. Branch rivastigmin Yes [id number] 1{patch Apply 1 Univers e 9.5 mg/24 9-09 } Patch to ity of hour patch 00:00[place] 00 the Medical morning. Branch Use this script when the rivastigmi ne 4.6 mg patch is used up. rivastigmin 2021-0 Yes [id number] 1{patch Apply 1 Univers e 4.6 mg/24 909 } Patch to ity of hour patch 00:00[place] 00 the Medical morning. [place] rivastigmin 2021-0 Yes [id number] 1{patch Apply 1 Univers e 9.5 mg/24 06-29 } Patch to ity of hour patch 00:00[place] the Medical morning. Branch Use this script when the rivastigmi ne 4.6 mg patch is used up. rivastigmin 2021-0 Yes [id number] 1{patch Apply 1 Univers e 4.6 mg/24 06-29 } Patch to ity of [place] patch 00:00[place] 00 the Medical morning. [place] rivastigmin 2021- Yes [id number] 1{patch Apply 1 Univers e 9.5 mg/24 06-29 } Patch to ity of hour patch 00:00[place] the Medical morning. Branch Use this script when the rivastigmi ne 4.6 mg patch is used up. rivastigmin 2021-0 Yes [id number] 1{patch Apply 1 Univers e 4.6 mg/24 06-29 } Patch to ity of hour patch 00:00: [place] 00 the Medical morning. [place] rivastigmin 2021- Yes [id number] 1{patch Apply 1 Univers e 9.5 mg/24 06-29 } Patch to ity of hour patch 00:00: [place] 00 the Medical morning. Branch Use this script when the rivastigmi ne 4.6 mg patch is used up. rivastigmin 2021-0 Yes [id number] 1{patch Apply 1 Univers e 4.6 mg/24 9 } Patch to ity of hour patch 00:00: [place] 00 the Medical morning. [place] rivastigmin 2021-0 Yes [id number] 1{patch Apply 1 Univers e 9.5 mg/24 06-29 } Patch to ity of hour patch 00:00: [place] the Medical morning. Branch Use this script when the rivastigmi ne 4.6 mg patch is used up. rivastigmin Yes [id number] 1{patch Apply 1 Univers e 4.6 mg/24 06-29 } Patch to ity of hour patch 00:00: [place] 00 the Medical morning. [place] rivastigmin Yes [id number] 1{patch Apply 1 Univers e 9.5 mg/24 06-29 } Patch to ity of hour patch 00:00: [place] 00 the Medical morning. Branch Use this script when the rivastigmi ne 4.6 mg patch is used up. rivastigmin Yes [id number] 1{patch Apply 1 Univers e 4.6 mg/24 06-29 } Patch to [place]y of hour patch 00:00: [place] 00 the Medical morning. [place] rivastigmin Yes [id number] 1{patch Apply 1 Univers e 9.5 mg/24 06-29 } Patch to ity of hour patch 00:00: [place] 00 the Medical morning. Branch Use this script when the rivastigmi ne 4.6 mg patch is used up. rivastigmin 2021- No [id number] 1{patch Apply 1 Univers e 4.6 mg/24 06-29 } Patch to ity of hour patch 00:00: 00:00 skin in [place] 00 :00 the Medical morning. [place] rivastigmin 2021- No [id number] 1{patch Apply 1 Univers e 9.5 mg/24 06-29 } Patch to ity of hour patch 00:00: 00:00 skin in [place] 00 :00 the Medical morning. Branch Use this script when the rivastigmi ne 4.6 mg patch is used up. rivastigmin 2021- No [id number] 1{patch Apply 1 Univers e 4.6 mg/24 06-29 } Patch to ity of hour patch 00:00: 00:00 skin in [place] 00 :00 the Medical morning. [place] rivastigmin 2021- No [id number] 1{patch Apply 1 Univers e 9.5 mg/24 [...] Zofran 4 8-16 MG 00:00: 00 rivastigmin 2021-0 2021- No 1{patch Apply 1 Univers e 4.6 mg/24 05-25 } Patch to ity of hour patch 00:00: 00:00 skin in [place] 00 :00 the Medical morning. [place] rivastigmin 2021-2021- No 1{patch Apply 1 Univers e 4.6 mg/24 05-25 } Patch to ity of hour patch 00:00: 00:00 skin in [place] 00 :00 the Medical morning. [facility] Yes cyclobenza Univers rine 10 mg 2-28 shanell 10 ity o f tablet 10:51: mg tablet 24 Take 1 Medical tablet 3 Branch times a day by oral route as directed for 10 days. diazePAM 2 Yes diazepam 2 U nivers mg tablet 2-28 mg tablet ity o f 10:51: [address] cyclobenza Univers rine 10 mg 2-28 shanell 10 ity o f tablet 10:51: mg tablet 24 Take 1 Medical tablet 3 Branch times a day by oral route as directed for 10 days. diazePAM 2 Yes diazepam 2 U nivers mg tablet 2-28 mg tablet ity o f 10:51: [address] cyclobenza Univers rine 10 mg 2-28 shanell 10 ity o f tablet 10:51: mg tablet 24 Take 1 Medical tablet 3 Branch times a day by oral route as directed for 10 days. diazePAM Yes diazepam 2 U nivers mg tablet 2-28 mg tablet ity o f 10:51: [address] cyclobenza Univers rine 10 mg 2-28 shanell 10 ity o f tablet 10:51: mg tablet 24 Take 1 Medical tablet 3 Branch times a day by oral route as directed for 10 days. diazePAM 2 Yes diazepam 2 U nivers mg tablet 2-28 mg tablet ity o f 10:51: [address] cyclobenza Univers rine 10 mg 2-28 shanell 10 ity o f tablet 10:51: mg tablet 24 Take 1 Medical tablet 3 Branch times a day by oral route as directed for 10 days. diazePAM 2 Yes diazepam 2 U nivers mg tablet 2-28 mg tablet ity o f 10:51: [address] cyclobenza Univers rine 10 mg 2-28 shanell 10 ity o f tablet 10:51: mg tablet 24 Take 1 Medical tablet 3 Branch times a day by oral route as directed for 10 days. diazePAM 2 Yes diazepam 2 U nivers mg tablet 2-28 mg tablet ity o f 10:51: [address] cyclobenza Univers rine 10 mg 2-28 shanell 10 ity o f tablet 10:51: mg tablet [place] 24 Take 1 Medical tablet 3 Branch times a day by oral route as directed for 10 days. diazePAM 2 Yes diazepam 2 U nivers mg tablet 2-28 mg tablet ity o f 10:51: [address] cyclobenzap Yes cyclobenza Univers rine 10 mg 2-28 shanell 10 ity o f tablet 10:51: mg tablet 24 Take 1 Medical tablet 3 Branch times a day by oral route as directed for 10 days. diazePAM 2 Yes diazepam 2 U nivers mg tablet 2-28 mg tablet ity o f 10:51: [address] cyclobenza Univers rine 10 mg 2-28 shanell 10 ity o f tablet 10:51: mg tablet [place] 24 Take 1 Medical tablet 3 Branch times a day by oral route as directed for 10 days. diazePAM Yes diazepam 2 U nivers mg tablet 2-28 mg tablet ity o f 10:51: [address] cyclobenza Univers rine 10 mg 2-28 shanell 10 ity o f tablet 10:51: mg tablet 24 Take 1 Medical tablet 3 Branch times a day by oral route as directed for 10 days. diazePAM 2 Yes diazepam 2 U nivers mg tablet 2-28 mg tablet ity o f 10:51: [address] cyclobenza Univers rine 10 mg 2-28 shanell 10 ity o f tablet 10:51: mg tablet 24 Take 1 Medical tablet 3 Branch times a day by oral route as directed for 10 days. diazePAM 2 Yes diazepam 2 U nivers mg tablet 2-28 mg tablet ity o f 10:51: [address] cyclobenzap Yes cyclobenza Univers rine 10 mg 2-28 shanell 10 ity o f tablet 10:51: mg tablet 24 Take 1 Medical tablet 3 Branch times a day by oral route as directed for 10 days. diazePAM 2 Yes diazepam 2 U nivers mg tablet 2-28 mg tablet ity o f 10:51: [address] cyclobenza Univers rine 10 mg 2-28 shanell 10 ity o f tablet 10:51: mg tablet [place] 24 Take 1 Medical tablet 3 Branch times a day by oral route as directed for 10 days. diazePAM 2 Yes diazepam 2 U nivers mg tablet 2-28 mg tablet ity o f 10:51: [address] cyclobenza Univers rine 10 mg 2-28 shanell 10 ity o f tablet 10:51: mg tablet [place] 24 Take 1 Medical tablet 3 Branch times a day by oral route as directed for 10 days. diazePAM 2 Yes diazepam 2 U nivers mg tablet 2-28 mg tablet ity o f 10:51: [address] Yes cyclobenza Univers rine 10 mg 2-28 shanell 10 ity o f tablet 10:51: mg tablet 24 Take 1 Medical tablet 3 Branch times a day by oral route as directed for 10 days. diazePAM 2 Yes diazepam 2 U nivers mg tablet 2-28 mg tablet ity o f 10:51: [address] cyclobenza Univers rine 10 mg 2-28 shanell 10 ity o f tablet 10:51: mg tablet 24 Take 1 Medical tablet 3 Branch times a day by oral route as directed for 10 days. diazePAM 2 Yes diazepam 2 U nivers mg tablet 2-28 mg tablet ity o f 10:51: [address] cyclobenza Univers rine 10 mg 2-28 shanell 10 ity o f tablet 10:51: mg tablet 24 Take 1 Medical tablet 3 Branch times a day by oral route as directed for 10 days. diazePAM 2 Yes diazepam 2 U nivers mg tablet 2-28 mg tablet ity o f 10:51: [address] cyclobenza Univers rine 10 mg 2-28 shanell 10 ity o f tablet 10:51: mg tablet 24 Take 1 Medical tablet 3 Branch times a day by oral route as directed for 10 days. diazePAM 2 Yes diazepam 2 U nivers mg tablet 2-28 mg tablet ity o f 10:51: [place] 24 Medical Branch donepeziL 5 2021-0 2- No [id number] 5mg Take 1 Univers mg tablet 2-28 - tablet by ity of 00:00: 00:00 mouth at [place] 00 :00 bedtime. Medical When Branch script runs out, call in for another increase. donepeziL 5 2021- No [id number] 5mg Take 1 Univers mg tablet -18 07- tablet by ity of 00:00: 00:00 mouth at [place] 00 :00 bedtime. Medical When Branch script runs out, call in for another increase. clotrimazol Yes DISSOLVE 1 [facility] 10 mg 2-09 [facility] BY [facility] 00:00: MOUTH FIVE [place] 00 TIMES A Medical DAY FOR 10 Branch TO 14 DAYS clotrimazol 0 Yes DISSOLVE 1 [facility] 10 mg 2-09 [facility] BY [facility] 00:00: MOUTH FIVE [place] 00 TIMES A Medical DAY FOR 10 Branch TO 14 DAYS clotrimazol 0 Yes DISSOLVE 1 [facility] e 10 mg [...] FOR 10 Branch TO 14 DAYS clotrimazol 2022-0 Yes DISSOLVE 1 [facility] e 10 mg [...] FOR 10 Branch TO 14 DAYS clotrimazol 202-0 Yes DISSOLVE 1 [facility] e 10 mg [...] FOR 10 Branch TO 14 DAYS meloxicam 2020-10 No 7.5mg QD Take 1 Meth do (Mobic) 7.5 2-29 03-[address] mg tablet 00:00: 04:59 (7.5 [facility] total) by l mouth daily for 90 days. meloxicam 2020-10 No 7.5mg QD Take 1 Meth do (Mobic) 7.5 2-29 03-[address] mg tablet 00:00: 04:59 (7.5 mg [facility] :[facility] total) by l mouth daily for 90 days. meloxicam 2020-10 Yes 15mg Take 15 mg Un oren 15 mg 2-28 by mouth ity of tablet 00:00: daily. [address] meloxicam 2020-10 Yes 15mg Take 15 mg Un oren 15 mg 2-28 by mouth ity of tablet 00:00: daily. [address] meloxicam 2020-10 Yes 15mg Take 15 mg Un oren 15 mg 2-28 by mouth ity of tablet 00:00: daily. [address] meloxicam 2020-10 Yes 15mg Take 15 mg Un oren 15 mg 2-28 by mouth ity of tablet 00:00: daily. [address] meloxicam 2020-10 Yes 15mg Take 15 mg Un oren 15 mg 2-28 by mouth ity of tablet 00:00: daily. [address] meloxicam 2020-10 Yes 15mg Take 15 mg Un oren 15 mg 2-28 by mouth ity of tablet 00:00: daily. [address] meloxicam 2020-10 Yes 15mg Take 15 mg Un oren 15 mg 2-28 by mouth ity of tablet 00:00: daily. [address] meloxicam 2020-10 Yes 15mg Take 15 mg Un oren 15 mg 2-28 by mouth ity of tablet 00:00: daily. [address] meloxicam 2020-10 Yes 15mg Take 15 mg Un oren 15 mg 2-28 by mouth ity of tablet 00:00: daily. [address] meloxicam 2020-10 Yes 15mg Take 15 mg Un oren 15 mg 2-28 by mouth ity of tablet 00:00: daily. [place] [facility] meloxicam 2020-10 Yes 15mg Take 15 mg Un oren 15 mg 2-28 by mouth ity of tablet 00:00: daily. [place] [facility] meloxicam 2020-10 Yes 15mg Take 15 mg Un oren 15 mg 2-28 by mouth ity of tablet 00:00: daily. [place] [facility] meloxicam 2020-10 Yes 15mg Take 15 mg Un oren 15 mg 2-28 by mouth ity of tablet 00:00: daily. [place] [facility] meloxicam 2020-10 Yes 15mg Take 15 mg Un oren 15 mg 2-28 by mouth ity of tablet 00:00: daily. [place] [facility] meloxicam 2020-10 Yes 15mg Take 15 mg Un oren 15 mg 2-28 by mouth ity of tablet 00:00: daily. [place] [facility] meloxicam 2020-10 Yes 15mg Take 15 mg Un oren 15 mg 2-28 by mouth ity of tablet 00:00: daily. [place] [facility] meloxicam 2020-10 Yes 15mg Take 15 mg Un oren 15 mg 2-28 by mouth ity of tablet 00:00: daily. [place] [facility] meloxicam 2020-10 Yes 15mg Take 15 mg Un oren 15 mg 2-28 by mouth ity of tablet 00:00: daily. [address] solifenacin 2020-10- No [facility] M ethodi [...] QD Take 40 mg M ethodi (PriLOSEC) 2-[address] 40 MG 10:46: daily. [...] directed for 10 days. IPRATROPIUM 2020-10 Yes [id number] INHALE 1 Univers 0.02 % 1-13 VIAL(2.5 ity of nebulizer 00:00: ML) VIA [place] solution 00 NEBULIZER Medica l TWICE Branch DAILY NEEDED FOR WHEEZING OR SHORTNESS OF BREATH IPRATROPIUM 2020-10 Yes [id number] INHALE 1 Univers 0.02 % 1-13 VIAL(2.5 ity of nebulizer 00:00: ML) VIA [place] solution 00 NEBULIZER Medica l TWICE Branch DAILY NEEDED FOR WHEEZING OR SHORTNESS OF BREATH IPRATROPIUM 2020-10 Yes [id number] INHALE 1 Univers 0.02 % 1-13 VIAL(2.5 ity of nebulizer 00:00: ML) VIA [place] solution 00 NEBULIZER Medica l TWICE Branch DAILY NEEDED FOR WHEEZING OR SHORTNESS OF BREATH IPRATROPIUM 2020-10 Yes [id number] INHALE 1 Univers 0.02 % 1-13 VIAL(2.5 ity of nebulizer 00:00: ML) VIA [place] solution 00 NEBULIZER Medica l TWICE Branch DAILY NEEDED FOR WHEEZING OR SHORTNESS OF BREATH IPRATROPIUM 2020-10 Yes [id number] INHALE 1 Univers 0.02 % 1-13 VIAL(2.5 ity of nebulizer 00:00: ML) VIA [place] solution 00 NEBULIZER Medica l TWICE Branch DAILY NEEDED FOR WHEEZING OR SHORTNESS OF BREATH IPRATROPIUM 2020-10 Yes [id number] INHALE 1 Univers 0.02 % 1-13 VIAL(2.5 ity of nebulizer 00:00: ML) VIA [place] solution 00 NEBULIZER Medica l TWICE Branch DAILY NEEDED FOR WHEEZING OR SHORTNESS OF BREATH IPRATROPIUM 2020-10 Yes [id number] INHALE 1 Univers 0.02 % 1-13 VIAL(2.5 ity of nebulizer 00:00: ML) VIA [place] solution 00 NEBULIZER Medica l TWICE Branch DAILY NEEDED FOR WHEEZING OR SHORTNESS OF BREATH IPRATROPIUM 2020-10 Yes [id number] INHALE 1 Univers 0.02 % 1-13 VIAL(2.5 ity of nebulizer 00:00: ML) VIA [place] solution 00 NEBULIZER Medica l TWICE Branch DAILY NEEDED FOR WHEEZING OR SHORTNESS OF BREATH IPRATROPIUM 2020-10 Yes [id number] INHALE 1 Univers 0.02 % 1-13 VIAL(2.5 ity of nebulizer 00:00: ML) VIA [place] solution 00 NEBULIZER Medica l TWICE Branch DAILY NEEDED FOR WHEEZING OR SHORTNESS OF BREATH IPRATROPIUM 2020-10 Yes [id number] INHALE 1 Univers 0.02 % 1-13 VIAL(2.5 ity of nebulizer 00:00: ML) VIA [place] solution 00 NEBULIZER Medica l TWICE Branch DAILY NEEDED FOR WHEEZING OR SHORTNESS OF BREATH IPRATROPIUM 2020-10 Yes [id number] INHALE 1 Univers 0.02 % 1-13 VIAL(2.5 ity of nebulizer 00:00: ML) VIA [place] solution 00 NEBULIZER Medica l TWICE Branch DAILY NEEDED FOR WHEEZING OR SHORTNESS OF BREATH IPRATROPIUM 2020-10 Yes [id number] INHALE 1 Univers 0.02 % 1-13 VIAL(2.5 ity of nebulizer 00:00: ML) VIA [place] solution 00 NEBULIZER Medica l TWICE Branch DAILY NEEDED FOR WHEEZING OR SHORTNESS OF BREATH IPRATROPIUM 2020-10 Yes [id number] INHALE 1 Univers 0.02 % 1-13 VIAL(2.5 ity of nebulizer 00:00: ML) VIA [place] solution 00 NEBULIZER Medica l TWICE Branch DAILY NEEDED FOR WHEEZING OR SHORTNESS OF BREATH IPRATROPIUM 2020-10 Yes [id number] INHALE 1 Univers 0.02 % 1-13 VIAL(2.5 ity of nebulizer 00:00: ML) VIA [place] solution 00 NEBULIZER Medica l TWICE Branch DAILY NEEDED FOR WHEEZING OR SHORTNESS OF BREATH IPRATROPIUM 2020-10 Yes [id number] INHALE 1 Univers 0.02 % 1-13 VIAL(2.5 ity of nebulizer 00:00: ML) VIA [place] solution 00 NEBULIZER Medica l TWICE Branch DAILY NEEDED FOR WHEEZING OR SHORTNESS OF BREATH IPRATROPIUM 2020-10 Yes [id number] INHALE 1 Univers 0.02 % 1-13 VIAL(2.5 ity of nebulizer 00:00: ML) VIA [place] solution NEBULIZER Medica l TWICE Branch DAILY NEEDED FOR WHEEZING OR SHORTNESS OF BREATH IPRATROPIUM 2020-10 Yes [id number] INHALE 1 Univers 0.02 % 1-13 VIAL(2.5 ity of nebulizer 00:00: ML) VIA [place] solution NEBULIZER Medica l TWICE Branch DAILY NEEDED FOR WHEEZING OR SHORTNESS OF BREATH IPRATROPIUM 2020-10 Yes [id number] INHALE 1 Univers 0.02 % 1-13 VIAL(2.5 ity of nebulizer 00:00: ML) VIA [place] solution 00 NEBULIZER Medica l TWICE Branch DAILY NEEDED FOR WHEEZING OR SHORTNESS OF BREATH ascorbic 2020-0 Yes 500mg Take 500 Univ ers acid, 3-03 mg by ity of vitamin C, 15:51: mouth. [place] (VITAMIN C) 53 Medical 500 mg Branch [...] by ity of vitamin C, 15:51: mouth. [place] (VITAMIN C) 53 Medical 500 mg Branch [...] by ity of vitamin C, 15:51: mouth. [place] (VITAMIN C) 53 Medical 500 mg Branch [...] by ity of vitamin C, 15:51: mouth. [place] (VITAMIN C) 53 Medical 500 mg Branch [...] by ity of vitamin C, 15:51: mouth. [place] (VITAMIN C) 53 Medical 500 mg Branch [...] by ity of vitamin C, 15:51: mouth. [place] (VITAMIN C) 53 Medical 500 mg Branch tablet vitamin 2020-0 Yes 250ug Take 250 Unive rs B-12 3-03 mcg by ity of (VITAMIN 15:51: mouth [place] B-12) 250 53 daily. Medical mcg tablet Branch zinc 2021-0 Yes Take by Univers sulfate 3-03 mouth. ity of (ZINC-15 15:51: [place] ORAL) 53 Medical Branch ascorbic 0 Yes 500mg Take 500 Univ ers acid, 3-03 mg by ity of vitamin C, 15:51: mouth. [place] (VITAMIN C) 53 Medical 500 mg Branch [...] by ity of vitamin C, 15:51: mouth. [place] (VITAMIN C) 53 Medical 500 mg Branch [...] by ity of vitamin C, 15:51: mouth. [place] (VITAMIN C) 53 Medical 500 mg Branch [...] by ity of vitamin C, 15:51: mouth. [place] (VITAMIN C) 53 Medical 500 mg Branch [...] by ity of vitamin C, 15:51: mouth. [place] (VITAMIN C) 53 Medical 500 mg Branch [...] by ity of vitamin C, 15:51: mouth. [place] (VITAMIN C) 53 Medical 500 mg Branch [...] by ity of vitamin C, 15:51: mouth. [place] (VITAMIN C) 53 Medical 500 mg Branch [...] by ity of vitamin C, 15:51: mouth. [place] (VITAMIN C) 53 Medical 500 mg Branch [...] by ity of vitamin C, 15:51: mouth. [place] (VITAMIN C) 53 Medical 500 mg Branch [...] by ity of vitamin C, 15:51: mouth. [place] (VITAMIN C) 53 Medical 500 mg Branch [...] by ity of vitamin C, 15:51: mouth. [place] (VITAMIN C) 53 Medical 500 mg Branch [...] by ity of vitamin C, 15:51: mouth. [place] (VITAMIN C) 53 Medical 500 mg Branch tablet vitamin 0 Yes 250ug Take 250 Unive rs B-12 3-03 mcg by ity of (VITAMIN 15:51: mouth [place] B-12) 250 53 daily. Medical mcg tablet Branch zinc 0 Yes Take by Univers sulfate 3-03 mouth. ity of (ZINC-15 15:51: [place] ORAL) 53 Medical Branch omeprazole 0 Yes 40mg Take 40 mg U nivers 40 mg 3-03 by mouth ity of capsule 15:25: daily. [place] [facility] predniSONE 0 Yes 10mg Take 10 mg U nivers 10 mg 3-03 by mouth ity of tablet 15:25: as needed [place] [address] (wheezing) Medical . Branch tiotropium Yes 18ug Inhale 18 Un oren 18 mcg 3-03 mcg daily. ity of inhalation 15:25: [place] [address] Medical Branch omeprazole Yes 40mg Take 40 mg U nivers 40 mg 3-03 by mouth ity of capsule 15:25: daily. [address] predniSONE 0 Yes 10mg Take 10 mg U nivers 10 mg 3-03 by mouth ity of tablet 15:25: as needed [place] [address] (wheezing) Medical . Branch tiotropium Yes 18ug Inhale 18 Un oren 18 mcg 3-03 mcg daily. ity of inhalation 15:25: [address] Branch omeprazole Yes 40mg Take 40 mg U nivers 40 mg 3-03 by mouth ity of capsule 15:25: daily. [address] predniSONE Yes 10mg Take 10 mg U nivers 10 mg 3-03 by mouth ity of tablet 15:25: as needed [place] [address] (wheezing) Medical . Branch tiotropium Yes 18ug Inhale 18 Un oren 18 mcg 3-03 mcg daily. ity of inhalation 15:25: [address] omeprazole Yes 40mg Take 40 mg U nivers 40 mg 3-03 by mouth ity of capsule 15:25: daily. [address] predniSONE 0 Yes 10mg Take 10 mg U nivers 10 mg 3-03 by mouth ity of tablet 15:25: as needed [place] [address] (wheezing) Medical . Branch tiotropium Yes 18ug Inhale 18 Un oren 18 mcg 3-03 mcg daily. ity of inhalation 15:25: [address] omeprazole Yes 40mg Take 40 mg U nivers 40 mg 3-03 by mouth ity of capsule 15:25: daily. [address] predniSONE 0 Yes 10mg Take 10 mg U nivers 10 mg 3-03 by mouth ity of tablet 15:25: as needed [place] [address] (wheezing) Medical . Branch tiotropium Yes 18ug Inhale 18 Un oren 18 mcg 3-03 mcg daily. ity of inhalation 15:25: [place] 01 Medical Branch omeprazole Yes 40mg Take 40 mg U nivers 40 mg 3-03 by mouth ity of capsule 15:25: daily. [address] Branch predniSONE 0 Yes 10mg Take 10 mg U nivers 10 mg 3-03 by mouth ity of tablet 15:25: as needed [place] [address] (wheezing) Medical . Branch tiotropium Yes 18ug Inhale 18 Un oren 18 mcg 3-03 mcg daily. ity of inhalation 15:25: [place] [address] Medical Branch omeprazole Yes 40mg Take 40 mg U nivers 40 mg 3-03 by mouth ity of capsule 15:25: daily. [address] predniSONE 0 Yes 10mg Take 10 mg U nivers 10 mg 3-03 by mouth ity of tablet 15:25: as needed [place] [address] (wheezing) Medical . Branch tiotropium Yes 18ug Inhale 18 Un oren 18 mcg 3-03 mcg daily. ity of inhalation 15:25: [address] omeprazole Yes 40mg Take 40 mg U nivers 40 mg 3-03 by mouth ity of capsule 15:25: daily. [address] predniSONE 0 Yes 10mg Take 10 mg U nivers 10 mg 3-03 by mouth ity of tablet 15:25: as needed [place] [address] (wheezing) Medical . Branch tiotropium Yes 18ug Inhale 18 Un oren 18 mcg 3-03 mcg daily. ity of inhalation 15:25: [address] omeprazole Yes 40mg Take 40 mg U nivers 40 mg 3-03 by mouth ity of capsule 15:25: daily. [address] predniSONE 0 Yes 10mg Take 10 mg U nivers 10 mg 3-03 by mouth ity of tablet 15:25: as needed [place] [address] (wheezing) Medical . Branch tiotropium Yes 18ug Inhale 18 Un oren 18 mcg 3-03 mcg daily. ity of inhalation 15:25: [address] omeprazole 0 Yes 40mg Take 40 mg U nivers 40 mg 3-03 by mouth ity of capsule 15:25: daily. [address] predniSONE 2020-0 Yes 10mg Take 10 mg U nivers 10 mg 3-03 by mouth ity of tablet 15:25: as needed [place] [address] (wheezing) Medical . Branch tiotropium Yes 18ug Inhale 18 Un oren 18 mcg 3-03 mcg daily. ity of inhalation 15:25: [place] [address] Medical Branch omeprazole Yes 40mg Take 40 mg U nivers 40 mg 3-03 by mouth ity of capsule 15:25: daily. [address] predniSONE 0 Yes 10mg Take 10 mg U nivers 10 mg 3-03 by mouth ity of tablet 15:25: as needed [place] [address] (wheezing) Medical . Branch tiotropium Yes 18ug Inhale 18 Un oren 18 mcg 3-03 mcg daily. ity of inhalation 15:25: [address] Branch omeprazole Yes 40mg Take 40 mg U nivers 40 mg 3-03 by mouth ity of capsule 15:25: daily. [address] predniSONE 0 Yes 10mg Take 10 mg U nivers 10 mg 3-03 by mouth ity of tablet 15:25: as needed [place] [address] (wheezing) Medical . Branch tiotropium Yes 18ug Inhale 18 Un oren 18 mcg 3-03 mcg daily. ity of inhalation 15:25: [address] omeprazole Yes 40mg Take 40 mg U nivers 40 mg 3-03 by mouth ity of capsule 15:25: daily. [address] predniSONE 0 Yes 10mg Take 10 mg U nivers 10 mg 3-03 by mouth ity of tablet 15:25: as needed [place] [address] (wheezing) Medical . Branch tiotropium Yes 18ug Inhale 18 Un oren 18 mcg 3-03 mcg daily. ity of inhalation 15:25: [address] omeprazole 0 Yes 40mg Take 40 mg U nivers 40 mg 3-03 by mouth ity of capsule 15:25: daily. [address] predniSONE 0 Yes 10mg Take 10 mg U nivers 10 mg 3-03 by mouth ity of tablet 15:25: as needed [place] [address] (wheezing) Medical . Branch tiotropium Yes 18ug Inhale 18 Un oren 18 mcg 3-03 mcg daily. ity of inhalation 15:25: [place] 01 Medical Branch omeprazole Yes 40mg Take 40 mg U nivers 40 mg 3-03 by mouth ity of capsule 15:25: daily. [place] [facility] predniSONE Yes 10mg Take 10 mg U nivers 10 mg 3-03 by mouth ity of tablet 15:25: as needed [place] (wheezing) Medical . Branch tiotropium Yes 18ug Inhale 18 Un oren 18 mcg 3-03 mcg daily. ity of inhalation 15:25: [place] [address] Medical Branch omeprazole Yes 40mg Take 40 mg U nivers 40 mg 3-03 by mouth ity of capsule 15:25: daily. [place] [address] Medical Branch predniSONE Yes 10mg Take 10 mg U nivers 10 mg 3-03 by mouth ity of tablet 15:25: as needed [place] [address] (wheezing) Medical . Branch tiotropium Yes 18ug Inhale 18 Un oren 18 mcg 3-03 mcg daily. ity of inhalation 15:25: [place] [address] Medical Branch omeprazole Yes 40mg Take 40 mg U nivers 40 mg 3-03 by mouth ity of capsule 15:25: daily. [place] [address] Medical Branch predniSONE Yes 10mg Take 10 mg U nivers 10 mg 3-03 by mouth ity of tablet 15:25: as needed [place] (wheezing) Medical . Branch tiotropium Yes 18ug Inhale 18 Un oren 18 mcg 3-03 mcg daily. ity of inhalation 15:25: [place] [address] Medical Branch omeprazole Yes 40mg Take 40 mg U nivers 40 mg 3-03 by mouth ity of capsule 15:25: daily. [place] [address] Medical Medinah predniSONE Yes 10mg Take 10 mg U nivers 10 mg 3-03 by mouth ity of tablet 15:25: as needed [place] (wheezing) Medical . Branch tiotropium Yes 18ug Inhale 18 Un oren 18 mcg 3-03 mcg daily. ity of inhalation 15:25: [place] [address] Medical Branch ergocalcife 0 Yes [id number] Take 1 Univers rol, 8-17 capsule by ity of vitamin d2, 00:00: mouth [place] (VITAMIN 00 weekly. Medical D2) 1,250 Branch mcg (50,000 unit) capsule ergocalcife 2020-0 Yes [id number] Take 1 Univers rol, 8-17 capsule by ity of vitamin d2, 00:00: mouth [place] (VITAMIN 00 weekly. Medical D2) 1,250 Branch mcg (50,000 unit) capsule ergocalcife 2020-0 Yes [id number] Take 1 Univers rol, 8-17 capsule by ity of vitamin d2, 00:00: mouth [place] (VITAMIN 00 weekly. Medical D2) 1,250 Branch mcg (50,000 unit) capsule ergocalcife 2020-0 Yes [id number] Take 1 Univers rol, 8-17 capsule by ity of vitamin d2, 00:00: mouth [place] (VITAMIN 00 weekly. Medical D2) 1,250 Branch mcg (50,000 unit) capsule ergocalcife 2020-0 Yes [id number] Take 1 Univers rol, 8-17 capsule by ity of vitamin d2, 00:00: mouth [place] (VITAMIN 00 weekly. Medical D2) 1,250 Branch mcg (50,000 unit) capsule ergocalcife 2020-0 Yes [id number] Take 1 Univers rol, 8-17 capsule by ity of vitamin d2, 00:00: mouth [place] (VITAMIN 00 weekly. Medical D2) 1,250 Branch mcg (50,000 unit) capsule ergocalcife 2020-0 Yes [id number] Take 1 Univers rol, 8-17 capsule by ity of vitamin d2, 00:00: mouth [place] (VITAMIN 00 weekly. Medical D2) 1,250 Branch mcg (50,000 unit) capsule ergocalcife 2020-0 Yes [id number] Take 1 Univers rol, 8-17 capsule by ity of vitamin d2, 00:00: mouth [place] (VITAMIN 00 weekly. Medical D2) 1,250 Branch mcg (50,000 unit) capsule ergocalcife 2020-0 Yes [id number] Take 1 Univers rol, 8-17 capsule by ity of vitamin d2, 00:00: mouth [place] (VITAMIN 00 weekly. Medical D2) 1,250 Branch mcg (50,000 unit) capsule ergocalcife 2020-0 Yes [id number] Take 1 Univers rol, 8-17 capsule by ity of vitamin d2, 00:00: mouth [place] (VITAMIN 00 weekly. Medical D2) 1,250 Branch mcg (50,000 unit) capsule ergocalcife 2020-0 Yes [id number] Take 1 Univers rol, 8-17 capsule by ity of vitamin d2, 00:00: mouth [place] (VITAMIN 00 weekly. Medical D2) 1,250 Branch mcg (50,000 unit) capsule ergocalcife 2020-0 Yes [id number] Take 1 Univers rol, 8-17 capsule by ity of vitamin d2, 00:00: mouth [place] (VITAMIN 00 weekly. Medical D2) 1,250 Branch mcg (50,000 unit) capsule ergocalcife 2020-0 Yes [id number] Take 1 Univers rol, 8-17 capsule by ity of vitamin d2, 00:00: mouth [place] (VITAMIN 00 weekly. Medical D2) 1,250 Branch mcg (50,000 unit) capsule ergocalcife 2020-0 Yes [id number] Take 1 Univers rol, 8-17 capsule by ity of vitamin d2, 00:00: mouth [place] (VITAMIN 00 weekly. Medical D2) 1,250 Branch mcg (50,000 unit) capsule ergocalcife 2020-0 Yes [id number] Take 1 Univers rol, 8-17 capsule by ity of vitamin d2, 00:00: mouth [place] (VITAMIN 00 weekly. Medical D2) 1,250 Branch mcg (50,000 unit) capsule ergocalcife 2020-0 Yes [id number] Take 1 Univers rol, 8-17 capsule by ity of vitamin d2, 00:00: mouth [place] (VITAMIN 00 weekly. Medical D2) 1,250 Branch mcg (50,000 unit) capsule ergocalcife 2020-0 Yes [id number] Take 1 Univers rol, 8-17 capsule by ity of vitamin d2, 00:00: mouth [place] (VITAMIN 00 weekly. Medical D2) 1,250 Branch mcg (50,000 unit) capsule ergocalcife 2020-0 Yes [id number] Take 1 Univers rol, 8-17 capsule by ity of vitamin d2, 00:00: mouth [place] (VITAMIN 00 weekly. Medical D2) 1,250 Branch mcg (50,000 unit) capsule Omeprazole Omeprazole 2018-0 Yes Tom 1 capsule Common 8-16 [facility] 00:00: - [facility] 00 [facility] Omeprazole Omeprazole 2019-0 No 1{capsu BID Omeprazole [...] Common n Calcium n Calcium [facility] PredniSONE Yes Tom 1 tablet Common [facility] Vitamin B12 Vitamin B12 No Vitamin B12 [...] Zinc Probiotic Probiotic No Probiotic 250 1-250 1-250 BILLION-MG BILLION-MG BILLION-MG Neuriva Neuriva No [...] Zinc Probiotic Probiotic No Probiotic 250 1-250 1-250 BILLION-MG BILLION-MG BILLION-MG Neuriva Neuriva No [...] MG Probiotic Probiotic No Probiotic 250 1-250 BILLION-MG BILLION-MG BILLION-MG predniSONE predniSONE No [...] MG Probiotic Probiotic No Probiotic 250 250 BILLION-MG BILLION-MG BILLION-MG predniSONE predniSONE [...] Vitamin B12 Probiotic Probiotic No Probiotic 250 BILLION-MG BILLION-MG BILLION-MG Zinc Zinc No [...] Vitamin B12 Probiotic Probiotic No Probiotic 250 1-250 BILLION-MG BILLION-MG BILLION-MG Zinc Zinc [...] Vitamin B12 Probiotic Probiotic No Probiotic 250 1-250 BILLION-MG BILLION-MG BILLION-MG Zinc Zinc No Zinc Omeprazole Omeprazole No 1{capsu QD Omeprazole 20 MG 20 MG le} 20 MG Vitamin D3 Vitamin D3 No Vitamin D3 Vitamin C Vitamin C No Vitamin C Neuriva Neuriva No Neuriva predniSONE predniSONE No 1{table QD predniSONE 10 MG 10 MG t} 10 MG Vitamin C Vitamin C No Vitamin C Rosuvastati Rosuvastati No 1{table QD Rosuvastat n Calcium n Calcium t} in Calcium 40 MG 40 MG 40 MG Probiotic Probiotic No Probiotic 250 1-250 1-250 BILLION-MG BILLION-MG BILLION-MG Neuriva Neuriva No Neuriva Ondansetron Ondansetron No Ondansetro 4 MG 4 MG n 4 MG Zinc Zinc No Zinc Omeprazole Omeprazole No 1{capsu QD Omeprazole 20 MG 20 MG le} 20 MG Vitamin B12 Vitamin B12 No Vitamin B12 predniSONE predniSONE No 1{table QD predniSONE 10 MG 10 MG t} 10 MG Vitamin D3 Vitamin D3 No Vitamin D3 Vitamin C Vitamin C No Vitamin C Rosuvastati Rosuvastati No 1{table QD Rosuvastat n Calcium n Calcium t} in Calcium 40 MG 40 MG 40 MG Probiotic Probiotic No Probiotic 250 250 1-250 BILLION-MG BILLION-MG BILLION-MG Neuriva Neuriva No Neuriva Ondansetron Ondansetron No Ondansetro 4 MG 4 MG n 4 MG Zinc Zinc No Zinc Omeprazole Omeprazole No 1{capsu QD Omeprazole 20 MG 20 MG le} 20 MG Vitamin B12 Vitamin B12 No Vitamin B12 predniSONE predniSONE No 1{table QD predniSONE 10 MG 10 MG t} 10 MG Vitamin D3 Vitamin D3 No Vitamin D3 Vitamin C Vitamin C No Vitamin C Rosuvastati Rosuvastati No 1{table QD Rosuvastat n Calcium n Calcium t} in Calcium 40 MG 40 MG 40 MG Probiotic Probiotic No Probiotic 250 1250 1-250 BILLION-MG BILLION-MG BILLION-MG Neuriva Neuriva No Neuriva Ondansetron Ondansetron No Ondansetro 4 MG 4 MG n 4 MG Zinc Zinc No Zinc Omeprazole Omeprazole No 1{capsu QD Omeprazole 20 MG 20 MG le} 20 MG Vitamin B12 Vitamin B12 No Vitamin B12 predniSONE predniSONE No 1{table QD predniSONE 10 MG 10 MG t} 10 MG Vitamin D3 Vitamin D3 No Vitamin D3 Vitamin C Vitamin C No Vitamin C Rosuvastati Rosuvastati No 1{table QD Rosuvastat n Calcium n Calcium t} in Calcium 40 MG 40 MG 40 MG Probiotic Probiotic No Probiotic 1-250 1250 1-250 BILLION-MG BILLION-MG BILLION-MG Neuriva Neuriva No Neuriva Ondansetron Ondansetron No Ondansetro 4 MG 4 MG n 4 MG Zinc Zinc No Zinc Omeprazole Omeprazole No 1{capsu QD Omeprazole 20 MG 20 MG le} 20 MG Vitamin B12 Vitamin B12 No Vitamin B12 predniSONE predniSONE No 1{table QD predniSONE 10 MG 10 MG t} 10 MG Vitamin D3 Vitamin D3 No Vitamin [...] Zinc Zinc No Zinc Immunizations Ordered Filled Date Status Comments Source Immunization Name Immunization Name Influenza Virus 2022-07-18 Completed [facility] [...] Dose 2020-06-26 Completed [facility] of 00:00:00 [facility] Influenza High Dose 2020-06-26 Completed Unive rsity of 00:00:00 [facility] Influenza High Dose 2020-06-26 Completed Unive rsity of 00:00:00 [facility] Influenza High Dose 2020-06-26 Completed Unive rsity of 00:00:00 [facility] Influenza High Dose 2020-06-26 Completed Unive rsity of 00:00:00 [facility] Influenza High Dose 2020-06-26 Completed Unive rsity of 00:00:00 [facility] Influenza High Dose 2020-06-26 Completed Unive rsity of 00:00:00 [facility] Influenza High Dose 2020-06-26 Completed Unive rsity of 00:00:00 [facility] Influenza High Dose 2020-06-26 Completed Unive rsity of 00:00:00 [facility] Influenza High Dose 2020-06-26 Completed Unive rsity of 00:00:00 [facility] Influenza High Dose 2020-06-26 Completed Unive rsity of 00:00:00 [facility] Influenza High Dose 2020-06-26 Completed Unive rsity of 00:00:00 [facility] Influenza High Dose 2020-06-26 Completed Unive rsity of 00:00:00 [facility] Influenza High Dose 2020-06-26 Completed Unive rsity of 00:00:00 [facility] Influenza High Dose 2020-06-26 Completed Unive rsity of 00:00:00 [facility] Influenza High Dose 2020-06-26 Completed [facility] 00:00:00 [facility] Influenza High Dose 2020-06-26 Completed [facility] 00:00:00 [facility] Influenza High Dose 2020-06-26 Completed [facility] 00:00:00 [facility] Influenza High Dose 2019-06-26 Completed [facility] 00:00:00 [facility] Influenza High Dose 2019-06-26 Completed [facility] 00:00:00 [facility] Influenza High Dose 2019-06-26 Completed [facility] 00:00:00 [facility] Influenza High Dose 2019-06-26 Completed [facility] of 00:00:00 [facility] Influenza High Dose 2019-06-26 Completed [facility] of 00:00:00 [facility] Influenza High Dose 2019-06-26 Completed [facility] of 00:00:00 [facility] Influenza High Dose 2019-06-26 Completed [facility] 00:00:00 [facility] Influenza High Dose 2019-06-26 Completed [facility] 00:00:00 [facility] Influenza High Dose 2019-06-26 Completed [facility] 00:00:00 [facility] Influenza High Dose 2019-06-26 Completed [facility] 00:00:00 [facility] Influenza High Dose 2019-06-26 Completed [facility] 00:00:00 [facility] Influenza High Dose 2019-06-26 Completed [facility] of 00:00:00 [facility] Influenza High Dose 2019-06-26 Completed [facility] of 00:00:00 [facility] Influenza High Dose 2019-06-26 Completed [facility] 00:00:00 [facility] Influenza High Dose 2019-06-26 Completed [facility] 00:00:00 [facility] Influenza High Dose 2019-06-26 Completed [facility] 00:00:00 [facility] Influenza High Dose 2019-06-26 Completed [facility] 00:00:00 [facility] Influenza High Dose 2019-06-26 Completed [facility] 00:00:00 [facility] Influenza High Dose 2018-06-26 Completed [facility] 00:00:00 [facility] Influenza High Dose 2018-06-26 Completed [facility] of 00:00:00 [facility] Influenza High Dose 2018-06-26 Completed [facility] of 00:00:00 [facility] Influenza High Dose 2018-06-26 Completed [facility] 00:00:00 [facility] Influenza High Dose 2018-06-26 Completed [facility] 00:00:00 [facility] Influenza High Dose 2018-06-26 Completed [facility] 00:00:00 [facility] Influenza High Dose 2018-06-26 Completed [facility] 00:00:00 [facility] Influenza High Dose 2018-06-26 Completed [facility] 00:00:00 [facility] Influenza High Dose 2018-06-26 Completed [facility] of 00:00:00 [facility] Influenza High Dose 2018-06-26 Completed [facility] of 00:00:00 [facility] Influenza High Dose 2018-06-26 Completed [facility] 00:00:00 [facility] Influenza High Dose 2018-06-26 Completed [facility] 00:00:00 [facility] Influenza High Dose 2018-06-26 Completed [facility] 00:00:00 [facility] Influenza High Dose 2018-06-26 Completed [facility] of 00:00:00 [facility] Influenza High Dose 2018-06-26 Completed [facility] of 00:00:00 [facility] Influenza High Dose 2018-06-26 Completed [facility] 00:00:00 [facility] Influenza High Dose 2018-06-26 Completed [facility] 00:00:00 [facility] Influenza High Dose 2018-06-26 Completed [facility] 00:00:00 [facility] FLUZONE HIGH DOSE FLUZONE HIGH DOSE Unknown [facility] [address] [facility] FLUZONE HIGH DOSE FLUZONE HIGH DOSE Unknown Completed [facility] [address] [facility] FLUZONE HIGH DOSE FLUZONE HIGH DOSE Unknown Completed [facility] [address] [facility] Vital Signs Vital Name Observation Time Observation Value Comments Source Systolic blood 2023-05-07 19:11:00 131 mm[Hg] [facility]iver [facility] of pressure [facility] Diastolic blood 2023-05-07 19:11:00 76 mm[Hg] [facility] Heart rate 2023-05-07 19:11:00 84 /min [facility] Body height 2023-05-07 19:11:00 165.1 cm [facility] Body weight 2023-05-07 19:11:00 55.656 kg [facility] BMI 2023-05-07 19:11:00 20.42 kg/m2 [facility] Systolic blood 2023-04-25 16:56:00 106 mm[Hg] [facility] of [facility] Diastolic blood 2023-04-25 16:56:00 62 mm[Hg] [facility] of [facility] Heart rate 2023-04-25 16:56:00 87 /min [facility] Body temperature 2023-04-25 16:56:00 36.5 Mari [facility] Respiratory rate 2023-04-25 16:56:00 18 /min [facility] Body height 2023-04-25 16:56:00 165.1 cm [facility] Body weight 2023-04-25 16:56:00 55.203 kg [facility] BMI 2023-04-25 16:56:00 20.25 kg/m2 [facility] Oxygen saturation in 2023-04-25 16:56:00 94 /min [facility] Arterial blood by [facility] Pulse oximetry Branch height 2022-12-18 11:10:00 62.5 [in_i] [facility] weight 2022-12-18 11:10:00 126.3 [lb_av] [facility] temperature 2022-12-18 11:10:00 97.3 [degF] [facility] bmi 2022-12-18 11:10:00 22.73 kg/m2 [facility] oximetry 2022-12-18 11:10:00 93 % [facility] respiratory rate 2022-12-18 11:10:00 16 /min Comm on [facility] blood pressure 2022-12-18 11:10:00 132 mm[Hg] [facility] blood pressure 2022-12-18 11:10:00 72 mm[Hg] [facility] height 2022-12-05 16:00:00 62.5 [in_i] [facility] weight 2022-12-05 16:00:00 129.5 [lb_av] [facility] temperature 2022-12-05 16:00:00 97.0 [degF] [facility] bmi 2022-12-05 16:00:00 23.31 kg/m2 [facility] oximetry 2022-12-05 16:00:00 95 % [facility] respiratory rate 2022-12-05 16:00:00 16 /min Comm on [facility] blood pressure 2022-12-05 16:00:00 138 mm[Hg] [facility] systolic [facility] blood pressure 2022-12-05 16:00:00 80 mm[Hg] [facility] diastolic [facility] Systolic blood 2022-10-31 19:55:00 128 mm[Hg] Univer [facility]ity of pressure [facility] Diastolic blood 2022-10-31 19:55:00 78 mm[Hg] [facility]ive [facility]ity of pressure [facility] Heart rate 2022-10-31 19:55:00 73 /min Universi ty [facility] Respiratory rate 2022-10-31 19:55:00 16 /min Univ ersity [facility] Body weight 2022-10-31 19:55:[address] [facility] BMI 2022-10-31 19:55:00 22.14 kg/m2 [facility] Oxygen saturation in 2022-10-31 19:55:00 95 /min [facility] Arterial blood by [facility] Pulse oximetry Branch Systolic blood 2022-09-28 15:52:00 148 mm[Hg] Univer [facility]ity of pressure [facility] Diastolic blood 2022-09-28 15:52:00 83 mm[Hg] [facility]ive [facility]ity of pressure [facility] Heart rate 2022-09-28 15:52:00 78 /min [facility] Body height 2022-09-28 15:52:00 162.6 cm [facility] Body weight 2022-09-28 15:52:00 58.968 kg [facility] BMI 2022-09-28 15:52:00 22.31 kg/m2 [facility] Systolic blood 2022-08-28 21:49:00 134 mm[Hg] [facility]iver [facility] pressure [facility] Diastolic blood 2022-08-28 21:49:00 81 mm[Hg] [facility] pressure [facility] Heart rate 2022-08-28 21:49:00 79 /min [facility] Body height 2022-08-28 21:49:00 162.6 cm [facility] Body weight 2022-08-28 21:49:00 58.06 kg [facility] BMI 2022-08-28 21:49:00 21.97 kg/m2 [facility] Oxygen saturation in 2022-08-28 21:49:00 95 /min [facility] Arterial blood by [facility] Pulse oximetry Branch Systolic blood 2022-07-18 16:08:00 133 mm[Hg] Univer [facility]ity of pressure [facility] Diastolic blood 2022-07-18 16:08:00 81 mm[Hg] [facility]ive [facility] of pressure [facility] Heart rate 2022-07-18 16:08:00 72 /min [facility] Respiratory rate 2022-07-18 16:08:00 19 /min [facility] Body height 2022-07-18 16:08:00 165.1 cm [facility] Body weight 2022-07-18 16:08:00 59.829 kg [facility] BMI 2022-07-18 16:08:00 21.95 kg/m2 Universi ty [facility] Oxygen saturation in 2022-07-18 16:08:00 98 /min [facility] Arterial blood by [facility] Pulse oximetry Branch Systolic blood 2022-06-29 19:34:00 134 mm[Hg] Univer sity of pressure [facility] Diastolic blood 2022-06-29 19:34:00 76 mm[Hg] Unive rsity of pressure [facility] Heart rate 2022-06-29 19:34:00 72 /min [facility] Body height 2022-06-29 19:34:00 165.1 cm Universi ty [facility] Body weight 2022-06-29 19:34:00 60.782 kg Universi ty [facility] BMI 2022-06-29 19:34:00 22.30 kg/m2 Universi ty [facility] Oxygen saturation in 2022-06-29 19:34:00 96 /min [facility] Arterial blood by [facility] Pulse oximetry Branch height 2022-06-20 13:10:00 62.5 [in_i] [facility] weight 2022-06-20 13:10:00 132 [lb_av] [facility] temperature 2022-06-20 13:10:00 97.9 [degF] [facility] bmi 2022-06-20 13:10:00 23.76 kg/m2 [facility] oximetry 2022-06-20 13:10:00 95 % [facility] respiratory rate 2022-06-20 13:10:00 17 /min [facility] blood pressure 2022-06-20 13:10:00 136 mm[Hg] [facility] blood pressure 2022-06-20 13:10:00 80 mm[Hg] Common [facility] - diastolic [facility] height 2022-06-05 09:00:00 65.0 [in_i] [facility] weight 2022-06-05 09:00:00 131 [lb_av] Common [facility] bmi 2022-06-05 09:00:00 21.8 kg/m2 Common [facility] height 2022-05-16 14:20:00 65.0 [in_i] Common [facility] weight 2022-05-16 14:20:00 131 [lb_av] Common [facility] temperature 2022-05-16 14:20:00 97.6 [degF] Common [facility] bmi 2022-05-16 14:20:00 21.8 kg/m2 Common [facility] oximetry 2022-05-16 14:20:00 94 % [facility] respiratory rate 2022-05-16 14:20:00 16 /min Comm on [facility] blood pressure 2022-05-16 14:20:00 133 mm[Hg] Common [facility] - systolic [facility] blood pressure 2022-05-16 14:20:00 64 mm[Hg] Common [facility] - diastolic [facility] height 2022-05-16 14:30:00 65.0 [in_i] Common [facility] weight 2022-05-16 14:30:00 131 [lb_av] [facility] temperature 2022-05-16 14:30:00 97.6 [degF] Common [facility] bmi 2022-05-16 14:30:00 21.8 kg/m2 Common [facility] oximetry 2022-05-16 14:30:00 94 % Common [facility] respiratory rate 2022-05-16 14:30:00 16 /min [facility] on [facility] blood pressure 2022-05-16 14:30:00 133 mm[Hg] Common [facility] - systolic [facility] blood pressure 2022-05-16 14:30:00 64 mm[Hg] Common [facility] - diastolic [facility] Systolic blood 2023-07-10 15:40:00 139 mm[Hg] [facility] pressure Diastolic blood 2023-07-10 15:40:00 65 mm[Hg] [facility] pressure Heart rate 2023-07-10 15:40:00 68 /min [facility] Body temperature 2023-07-10 15:40:00 36.44 Mari [facility] Respiratory rate 2023-07-10 15:40:00 14 /min [facility] Body height 2023-07-10 15:40:00 162.6 cm [facility] Body weight 2023-07-10 15:40:00 55.157 kg [facility] BMI 2023-07-10 15:40:00 20.87 kg/m2 [facility] Oxygen saturation in 2023-07-10 15:40:00 97 /min [facility] Arterial blood by Pulse oximetry Heart rate 2023-04-12 21:30:00 80 /min [facility] Respiratory rate 2023-04-12 21:30:00 16 /min [facility] Oxygen saturation in 2023-04-12 21:30:00 93 /min [facility] Arterial blood by Pulse oximetry Systolic blood 2023-04-12 21:20:00 131 mm[Hg] [facility] pressure Diastolic blood 2023-04-12 21:20:00 65 mm[Hg] [facility] Body temperature 2023-04-12 16:35:00 36.22 Mari [facility] Body height 2023-04-12 16:35:00 162.6 cm [facility] Body weight 2023-04-12 16:35:00 55.339 kg [facility] BMI 2023-04-12 16:35:00 20.94 kg/m2 [facility] Systolic blood 2023-02-26 16:07:00 148 mm[Hg] [facility] pressure Diastolic blood 2023-02-26 16:07:00 65 mm[Hg] [facility] pressure Heart rate 2023-02-26 16:07:00 81 /min [facility] Body temperature 2023-02-26 16:07:00 37 Mari [facility] Respiratory rate 2023-02-26 16:07:00 14 /min [facility] Body height 2023-02-26 16:07:00 165.1 cm [facility] Body weight 2023-02-26 16:07:00 56.337 kg [facility] BMI 2023-02-26 16:07:00 20.67 kg/m2 [facility] Oxygen saturation in 2023-02-26 16:07:00 96 /min [facility] Arterial blood by Pulse oximetry Body height 2021-10-25 17:49:00 165.1 cm [facility] Body weight 2021-10-25 17:49:00 61.236 kg [facility] BMI 2021-10-25 17:49:00 22.47 kg/m2 [facility] Procedures Procedure Date / Time Performing Clinician Source Performed MRI THORACIC SPINE WO 2023-05-29 23:59:34 Scott Partida [facility] CONTRAST XR LUMBAR SPINE 2 OR 3 VW 2023-05-28 15:51:29 Scott Partida [facility] POCT MOLECULAR STREP 2023-04-25 17:01:00 Unknown, Attending [facility] SURGICAL PATHOLOGY 2023-04-12 20:20:00 Harsh Lomeli [facility] REQUEST IR NEEDLE BIOPSY 2023-04-12 19:41:11 Harsh Lomeli [facility] IR EPIDURAL INJECTION 2023-04-12 19:41:11 Harsh Lomeli [facility] LUMBAR IR KYPHOPLASTY FST VERT 2023-04-12 19:41:11 Harsh Lomeli [facility] BODY LUMBA ECG 12-LEAD 2023-04-12 17:26:25 Ellie Ward [facility] CBC WITH PLATELET AND 2023-04-09 17:51:00 Harsh Lomeli [facility] DIFFERENTIAL COMPREHENSIVE METABOLIC 2023-04-09 17:51:00 Harsh Lomeli [facility] PANEL PROTHROMBIN TIME WITH INR 2023-04-09 17:51:00 Harsh Lomeli [facility] PARTIAL THROMBOPLASTIN 2023-04-09 17:51:00 Harsh Lomeli [facility] TIME (PTT) MRI LUMBAR SPINE WO 2023-03-12 20:08:00 Harsh Lomeli [facility] CONTRAST XR CHEST 2 VW 2022-11-22 20:09:34 Alecia Watts [facility] PULMONARY FUNCTION TEST 2022-11-22 18:34:09 Alecia Watts [facility] IR KYPHOPLASTY FST VERT 2022-10-05 16:11:31 Harsh Lomeli [facility] BODY LUMBA COVID-19 QUALITATIVE 2022-10-03 [facility] RT-PCR CBC WITH PLATELET AND 2022-10-03 18:30:00 [facility] DIFFERENTIAL BASIC METABOLIC PANEL 2022-10-03 18:30:00 [facility] PROTHROMBIN TIME WITH INR 2022-10-03 18:30:00 [facility] ESTIMATED GFR 2022-10-03 18:30:00 [facility] CONSENT/REFUSAL FOR 2022-09-28 15:43:17 Doctor Unassigned, [facility] DIAGNOSIS AND TREATMENT [facility] MRI LUMBAR SPINE WO 2022-09-18 19:15:58 Harsh Lomeli [facility] CONTRAST SLEEP STUDY DATA REPORT 2022-07-26 05:01:00 Doctor Unassigned, [facility] FLU 2022-07-18 16:06:31 Reed Almendarez [facility] VACC([id number]),65+YR,0.5 Medica l Branch ML,IM,ADJUVANTED,QUAD(FLU AD) XR SHOULDER 2+ VW RIGHT 2021-10-25 17:49:05 Ariana Perez [facility] [place] ARTHROCENTESIS 2021-10-25 17:00:00 Ariana Perez [facility] ASPIR&/INJ MAJOR JT/BURSA W/O US MRI LUMBAR SPINE WO 2021-10-06 18:10:45 Harsh Lomeli [facility] CONTRAST MRI THORACIC SPINE WO 2021-10-06 17:55:34 Harsh Lomeli [facility] CONTRAST Plan of Care Planned Activity Planned Date Details Comments Source Future Scheduled 2023-08-14 Hepatitis C screening [facility] Test 11:10:10 (procedure) [code = 143031362] Future Scheduled 2023-08-14 SHINGLES VACCINES (1 [facility] Test 11:10:10 of 2) [code = SHINGLES VACCINES (1 of 2)] Future Scheduled 2023-08-14 65+ PNEUMOCOCCAL [facility] Test 11:10:10 VACCINE (2 - PCV) [code = 65+ PNEUMOCOCCAL VACCINE (2 - PCV)] Future Scheduled 2023-08-14 COVID-19 VACCINE (2 - [facility] Test 11:10:10 season) [code = COVID-19 VACCINE (2 - season)] Future Scheduled 2023-08-14 INFLUENZA VACCINE (#1) [facility] Test 11:10:10 [code = INFLUENZA VACCINE (#1)] Future Scheduled 2023-04-12 Screening for [facility] Test 13:53:59 malignant neoplasm of colon (procedure) [code = 581316717] Future Scheduled 2023-04-12 Screening for [facility] Test 13:53:59 malignant neoplasm of colon (procedure) [code = 735558135] Future Scheduled 2023-04-12 Screening for [facility] Test 13:53:59 malignant neoplasm of colon (procedure) [code = 449397758] Future Scheduled 2023-04-12 Hepatitis C screening [facility] Test 13:53:59 (procedure) [code = 730726866] Future Scheduled 2023-04-12 BREAST CANCER [facility] Test 13:53:59 SCREENING [code = BREAST CANCER SCREENING] Future Scheduled 2023-04-12 Screening for [facility] Test 13:53:59 malignant neoplasm of colon (procedure) [code = 078271453] Future Scheduled 2023-04-12 Screening for [facility] Test 13:53:59 malignant neoplasm of colon (procedure) [code = 745679624] Future Scheduled 2023-04-12 SHINGLES VACCINES (1 [facility] Test 13:53:59 of 2) [code = SHINGLES VACCINES (1 of 2)] Future Scheduled 2023-04-12 COVID-19 VACCINE (2 - [facility] Test 13:53:59 Booster for Joe series) [code = COVID-19 VACCINE (2 - Booster for Joe series)] Future Scheduled 2023-04-12 65+ [facility] 13:53:59 VACCINE (2 - PCV) [code = 65+ PNEUMOCOCCAL VACCINE (2 - PCV)] Future Scheduled 2023-04-12 INFLUENZA VACCINE [facility] Test 13:53:59 [code = INFLUENZA VACCINE] Future Scheduled 2023-03-19 Hepatitis C screening [facility] Test 06:39:07 (procedure) [code = 996214339] Future Scheduled 2023-03-19 BREAST CANCER [facility] Test 06:39:07 SCREENING [code = BREAST CANCER SCREENING] Future Scheduled 2023-03-19 COLONOSCOPY SCREENING [facility] Test 06:39:07 [code = COLONOSCOPY SCREENING] Future Scheduled 2023-03-19 SHINGLES VACCINES (1 [facility] Test 06:39:07 of 2) [code = SHINGLES VACCINES (1 of 2)] Future Scheduled 2023-03-19 COVID-19 VACCINE (2 - [facility] Test 06:39:07 Booster for Joe series) [code = COVID-19 VACCINE (2 - Booster for Joe series)] Future Scheduled 2023-03-19 65+ [facility]AL [facility] Test 06:39:07 VACCINE (2 - PCV) [code = 65+ PNEUMOCOCCAL VACCINE (2 - PCV)] Future Scheduled 2023-03-19 INFLUENZA VACCINE [facility] Test 06:39:07 [code = INFLUENZA VACCINE] Future Scheduled 2022-06-20 HEPATITIS B VACCINES [facility] Test 22:23:42 (1 of 3 - 3-dose series) [code = HEPATITIS B VACCINES (1 of 3 - 3-dose series)] Future Scheduled 2022-06-20 COVID-19 VACCINE (#1) [facility] Test 22:23:42 [code = COVID-19 VACCINE (#1)] Future Scheduled 2022-06-20 Hepatitis C screening [facility] Test 22:23:42 (procedure) [code = 267566423] Future Scheduled 2022-06-20 BREAST CANCER [facility] Test 22:23:42 SCREENING [code = BREAST CANCER SCREENING] Future Scheduled 2022-06-20 COLONOSCOPY SCREENING [facility] Test 22:23:42 [code = COLONOSCOPY SCREENING] Future Scheduled 2022-06-20 SHINGLES VACCINES (1 [facility] Test 22:23:42 of 2) [code = SHINGLES VACCINES (1 of 2)] Future Scheduled 2022-06-20 65+ [facility]OCCAL [facility] Test 22:23:42 VACCINE (2 - PCV) [code = 65+ PNEUMOCOCCAL VACCINE (2 - PCV)] Future Scheduled 2022-06-20 INFLUENZA VACCINE [facility] Test 22:23:42 [code = INFLUENZA VACCINE] Future Scheduled 2021-11-21 COVID-19 VACCINE (1) [facility] Test 15:45:20 [code = COVID-19 VACCINE (1)] Future Scheduled 2021-11-21 Hepatitis C screening [facility] Test 15:45:20 (procedure) [code = 700763025] Future Scheduled 2021-11-21 BREAST CANCER [facility] Test 15:45:20 SCREENING [code = BREAST CANCER SCREENING] Future Scheduled 2021-11-21 COLONOSCOPY SCREENING [facility] Test 15:45:20 [code = COLONOSCOPY SCREENING] Future Scheduled 2021-11-21 SHINGLES VACCINES (#1) [facility] Test 15:45:20 [code = SHINGLES VACCINES (#1)] Future Scheduled 2021-11-21 INFLUENZA VACCINE [facility] Test 15:45:20 [code = INFLUENZA VACCINE] Encounters Start End Encounter Admission Attending Care Care Encounter Source Date/Time Date/Time Type Type Clinicians Facility Department ID 2023-03-22 Outpatient Gonzales, [facility] [id number] Common 13:30:00 [facility] [id number] [facility] 2021-11-15 Outpatient Gonzales, [facility] [id number] Common 14:33:19 Lonnie [facility] 2021-11-15 Outpatient Gonzales, [facility] [id number] Common 13:32:47 Lonnie [id number] [facility] 2021-11-15 Outpatient Gonzales, [facility] [id number] Common 13:31:54 Lonnie [id number] [facility] 2021-11-15 Outpatient Gonzales, [facility] [id number] Common 13:31:14 Lonnie 27848 [facility] 2021-11-15 Outpatient STLML[facility] [id number] Common 13:17:33 92831 [facility] 2021-08-17 Outpatient R MAE [facility] LIZZ [id number] 8297 Univers 18:39:26 LAURA Headley [facility] 2023-08-17 2023-08-17 Outpatient GC_GCBZW_Ka PRIV PRIV 276 [id number] [facility] 00:00:00 00:00:00 diyala_S [id number] Medic al 2023-07-10 2023-07-10 Office Katia, 1.2.840.1 [id number] 3565 Methodi 13:10:00 13:34:44 Visit Scott Chan50.1.1 013 s t 3.430.2.7 Hospit a .3.610444 l .8 2023-07-10 2023-07-10 Office Denny, 1.2.840.1 [id number] 079573 4080 Methodi 10:30:00 11:27:41 Visit Alecia Chan50.1.[address] 3.430.2.7 Hospit a .3.873496 l .8 2023-07-10 2023-07-10 Outpatient [facility] [id number] 455 [place] 00:00:00 00:00:00 ALECIA [address] 2023-07-10 2023-07-10 [facility] [id number] 002 [place] 00:00:00 00:00:00 SCOTT Cohen [facility] 2023-05-30 2023-05-30 Orders Calos, 1.2.840.1 [id number] 2100 535225 Methodi 00:00:00 00:00:00 Only Marti Chan50.1.[address] 3.430.2.7 Hospit a .3.022926 l .8 2023-05-29 2023-05-29 [facility] Katia, 1.2.840.1 [id number] 95214 27146 Methodi 17:40:27 23:59:00 Encounter Scott Simon.1.[address] 3.430.2.7 Hospit a .3.010763 l .8 2023-05-29 2023-05-29 Outpatient KATIA, [facility] [id number] 805 Clark 00:00:00 00:00:00 SCOTT [address] 2023-05-28 2023-05-28 Office Katia, 1.2.840.1 [id number] 8929 Methodi 10:20:00 11:24:02 Visit Scott Wall 94453.1.1 047 s t 3.430.2.7 Hospit a .3.456945 l .8 2023-05-28 2023-05-28 Outpatient KATIA [facility] [id number] 627 Clark 00:00:00 00:00:00 SCOTT Correa [facility] 2023-05-28 2023-05-28 Outpatient KATIA [facility] [id number] 794 [place] 00:00:00 00:00:00 SCOTT 701 Method i 2023-05-07 2023-05-07 Outpatient TREMAINE WORKMAN [facility] [id number] Univers 13:40:00 17:07:31 TREMAINE CHAUDHRY [facility] 2023-05-07 2023-05-07 Office Richa [facility] 1.2.840.114 43115 3109 [facility] 13:40:00 17:07:31 Visit [facility] 350.1.13.10 [facility] 4.2.7.2.686 Viraj as TIFFANIE?BLEA [phone] [address] OFFICE [facility] 2023-04-30 2023-04-30 Telephone Miki Vieyra 1.2.840.1 [id number] Methodi 00:00:00 00:00:[address] 3.430.2.7 Hospit a .3.213882 l .8 2023-04-25 2023-04-25 Outpatient Myesha RUVALCABA [facility] [id number] 49005 Univers 11:40:00 12:28:08 KRISTY lobo [facility] 2023-04-25 2023-04-25 Urgent Kristy Ruvalcaba [facility] 1.2.840.11 4 [id number] [facility] 11:40:00 12:28:08 Care Unknown, Attending HEALTH 350.1.13.10 ity of [place] 4.2.7.2.686 Viraj as TIFFANIE?BLEA [id number] [place] yulisa [address] MEDICAL OFFICE BUILDING 2023-04-18 2023-04-18 Telephone Miki Vieyra 1.2.840.1 [id number] Methodi 00:00:00 00:00:[address] 3.430.2.7 Hospit a .3.165814 l .8 2023-04-12 2023-04-12 [facility] 1.2.840.1 [id number] 21001 56206 Methodi 11:13:30 23:59:00 Encounter Harsh Ayala 09251.1.[address] 3.430.2.7 Hospit a .3.977137 l .8 2023-04-12 2023-04-12 Anesthesia Eype, 1.2.840.1 851252629 314 5258623 Methodi 12:38:00 13:44:00 Event Ellie Howell 13500.1.[address] 3.430.2.7 Hospit a .3.398257 l .8 2023-04-12 2023-04-12 Anesthesia Eype, 1.2.840.1 020089438 600 6145083 Methodi 12:38:00 13:44:00 Event Ellie Howell 89763.1.[address] 3.430.2.7 Hospit a .3.363227 l .8 2023-04-12 2023-04-12 Travel 1.2.840.1 1.2.919.399 8533 536651 Methodi 00:00:00 00:00:[address] 3.430.2.7 0.2.7.3.698 Ho spita .3.647246 084.8 l .8 2023-04-12 2023-04-[address] [facility] 1.2.840.1 [id number] 21001 62261 Clark 00:00:00 00:00:00 Encounter HARSH 49157.1.[address] .3.481308 .8 2023-04-12 2023-04-12 Travel 1.2.840.1 1.2.794.859 5871 016358 Methodi 00:00:00 00:00:[address] 3.430.2.7 0.2.7.3.698 Ho spita .3.936510 084.8 l .8 2023-04-09 2023-04-09 Office Watts, 1.2.840.1 [id number] 973007 8812 Methodi 10:45:00 11:37:37 Visit Alecia Wall 00203.1.[address] 3.430.2.7 Hospit a .3.606708 l .8 2023-04-09 2023-04-09 Office Denny, 1.2.840.1 [id number] 740023 9656 Methodi 10:45:00 11:37:37 Visit Alecia Wall 58579.1.[address] 3.430.2.7 Hospit a .3.757257 l .8 2023-04-05 2023-04-05 Orders Christiano, 1.2.840.1 [id number] 374521 2258 Methodi 00:00:00 00:00:00 Only Susan 04998.1.[address] 3.430.2.7 Hospit a .3.870353 l .8 2023-04-05 2023-04-05 Telephone Demetrius, 1.2.840.1 [id number] 2100 972970 Methodi 00:00:00 00:00:00 Harsh Ayala 23180.1.1 055 s t 3.430.2.7 Hospit a .3.622607 l .8 2023-04-05 2023-04-05 Orders Alvarado, 1.2.840.1 880162410 545877 9463 Methodi 00:00:00 00:00:00 Only Susan 12268.1.[address] 3.430.2.7 Hospit a .3.344907 l .8 2023-04-05 2023-04-05 Telephone Zimmerman, 1.2.840.1 [id number] 2100 963600 Methodi 00:00:00 00:00:00 Harsh Ayala 69619.1.1 055 s t 3.430.2.7 Hospit a .3.641094 l .8 2023-04-03 2023-04-03 Orders Christiano, 1.2.840.1 [id number] 206529 8885 Methodi 00:00:00 00:00:00 Only Susan 55150.1.[address] 3.430.2.7 Hospit a .3.530679 l .8 2023-04-03 2023-04-03 Orders Christiano, 1.2.840.1 025942804 989680 6646 Methodi 00:00:00 00:00:00 Only Susan 17497.1.[address] 3.430.2.7 Hospit a .3.463492 l .8 2023-03-28 2023-03-28 Office Zimmerman, 1.2.840.1 [id number] 991259 4517 Methodi 10:45:00 11:26:07 Visit Harsh Ayala 29815.1.1 570 s t 3.430.2.7 Hospit a .3.234810 l .8 2023-03-28 2023-03-28 Office Zimmerman, 1.2.840.1 057582941 409455 3871 Methodi 10:45:00 11:26:07 Visit Harsh Ayala 87893.1.1 570 s t 3.430.2.7 Hospit a .3.364478 l .8 2023-03-28 2023-03-28 Orders Darshan, 1.2.840.1 049870638 63345 54023 Methodi 00:00:00 00:00:00 Only Cisco Alejandre 33293.1.[address] 3.430.2.7 Hospit a .3.967239 l .8 2023-03-28 2023-03-28 Orders Darshan, 1.2.840.1 571737136 86225 33572 Methodi 00:00:00 00:00:00 Only Cisco Chan50.1.[address] 3.430.2.7 Hospit a .3.951177 l .8 2023-03-15 2023-03-15 Telephone Zimmerman, 1.2.840.1 [id number] 2099 427696 Methodi 00:00:00 00:00:00 Harsh Chan50.1.1 581 s t 3.430.2.7 Hospit a .3.259330 l .8 2023-03-15 2023-03-15 Telephone Zimmerman, 1.2.840.1 [id number] 2099 418297 Methodi 00:00:00 00:00:00 Harsh Simon.1.1 581 s t 3.430.2.7 Hospit a .3.879518 l .8 2023-03-12 2023-03-12 [facility], 1.2.840.1 [id number] 06751 01708 Methodi 14:03:45 23:59:00 Encounter Harsh Chan50.1.[address] 3.430.2.7 Hospit a .3.766006 l .8 2023-03-12 2023-03-12 [facility], 1.2.840.1 [id number] 44349 30921 Methodi 14:03:45 23:59:00 Encounter Harsh Chan50.1.[address] 3.430.2.7 Hospit a .3.826347 l .8 2023-03-12 2023-03-12 Office Zimmerman, 1.2.840.1 [id number] 683814 6385 Methodi 11:00:00 13:53:20 Visit Harsh Chan50.1.1 008 s t 3.430.2.7 Hospit a .3.600343 l .8 2023-03-12 2023-03-12 Office Zimmerman, 1.2.840.1 [id number] 863914 3710 Methodi 11:00:00 13:53:20 Visit Harsh Chan50.1.1 008 s t 3.430.2.7 Hospit a .3.030333 l .8 2023-03-12 2023-03-12 Orders Alvarado, 1.2.840.1 [id number] 458306 9451 Methodi 00:00:00 00:00:00 Only Susan 03257.1.[address] 3.430.2.7 Hospit a .3.134197 l .8 2023-03-12 2023-03-12 Orders Alvarado, 1.2.840.1 909025737 348868 2771 Methodi 00:00:00 00:00:00 Only Susan 52570.1.[address] 3.430.2.7 Hospit a .3.204248 l .8 2023-03-12 2023-03-12 Travel 1.2.840.1 1.2.265.806 0611 821124 Methodi 00:00:00 00:00:[address] 3.430.2.7 0.2.7.3.698 Ho spita .3.611597 084.8 l .8 2023-03-12 2023-03-12 Telephone Watts, 1.2.840.1 449637183 2099 906165 Methodi 00:00:00 00:00:00 Alecia Wall 76468.1.[address] 3.430.2.7 Hospit a .3.554867 l .8 2023-03-12 2023-03-12 Orders Alvarado, 1.2.840.1 091266297 020678 7286 Methodi 00:00:00 00:00:00 Only Susan 25252.1.[address] 3.430.2.7 Hospit a .3.814425 l .8 2023-03-12 2023-03-12 Orders Alvarado, 1.2.840.1 990525723 491640 9552 Methodi 00:00:00 00:00:00 Only Susan 57637.1.[address] 3.430.2.7 Hospit a .3.750387 l .8 2023-03-12 2023-03-12 Travel 1.2.840.1 1.2.938.536 8553 647537 Methodi 00:00:00 00:00:[address] 3.430.2.7 0.2.7.3.698 Ho spita .3.849041 084.8 l .8 2023-03-12 2023-03-12 Telephone Watts, 1.2.840.1 [id number] 2099 756659 Methodi 00:00:00 00:00:00 Alecia Wall 38142.1.[address] 3.430.2.7 Hospit a .3.063882 l .8 2023-03-01 2023-03-01 Travel 1.2.840.1 1.2.552.535 8021 710867 Methodi 00:00:00 00:00:[address] 3.430.2.7 0.2.7.3.698 Ho spita .3.218734 084.8 l .8 2023-03-01 2023-03-01 Travel 1.2.840.1 1.2.354.014 4678 751206 Methodi 00:00:00 00:00:[address] 3.430.2.7 0.2.7.3.698 Ho spita .3.962507 084.8 l .8 2023-02-26 2023-02-26 Office Watts, 1.2.840.1 707551350 934346 9344 Methodi 10:30:00 12:01:43 Visit Alecia Wall 71715.1.[address] 3.430.2.7 Hospit a .3.654431 l .8 2023-02-26 2023-02-26 Office Watts, 1.2.840.1 377691189 214123 0009 Methodi 10:30:00 12:01:43 Visit Alecia Wall 98012.1.[address] 3.430.2.7 Hospit a .3.105452 l .8 2023-02-26 2023-02-26 Travel 1.2.840.1 1.2.653.675 8173 889783 Methodi 00:00:00 00:00:[address] 3.430.2.7 0.2.7.3.698 Ho spita .3.730571 084.8 l .8 2023-02-26 2023-02-26 Travel 1.2.840.1 1.2.101.618 6009 105148 Methodi 00:00:00 00:00:[address] 3.430.2.7 0.2.7.3.698 Ho spita .3.828437 084.8 l .8 2023-01-28 2023-01-28 Outpatient Myesha COMBS [facility] [id number] 768 Univers 10:30:00 10:30:00 [place] earl [facility] 2022-12-27 2022-12-27 Office Denny, 1.2.840.1 [id number] 233431 5925 Methodi 11:15:00 12:17:40 Visit Alecia Parmar. 33918.1.[address] 3.430.2.7 Hospit a .3.303239 l .8 2022-12-27 2022-12-27 Office Denny, 1.2.840.1 839829351 890561 9318 Methodi 11:15:00 12:17:40 Visit Alecia Parmar. 24609.1.[address] 3.430.2.7 Hospit a .3.060545 l .8 2022-12-27 2022-12-27 Travel 1.2.840.1 1.2.036.876 7543 664563 Methodi 00:00:00 00:00:[address] 3.430.2.7 0.2.7.3.698 Ho spita .3.612585 084.8 l .8 2022-12-27 2022-12-27 Travel 1.2.840.1 1.2.448.803 1702 372143 Methodi 00:00:00 00:00:[address] 3.430.2.7 0.2.7.3.698 Ho spita .3.842037 084.8 l .8 2022-12-18 2022-12-18 Orders Darshan, 1.2.840.1 829288462 05224 83304 Methodi 00:00:00 00:00:00 Only Cisco Hill [address]369.1.[address] 3.430.2.7 Hospit a .3.888097 l .8 2022-12-18 2022-12-18 Orders Darshan, 1.2.840.1 262179831 94720 40982 Methodi 00:00:00 00:00:00 Only Cisco Hill 96939.1.[address] 3.430.2.7 Hospit a .3.051724 l .8 2022-12-18 2022-12-18 OFFICE STLMLC STLMLC 0909175 Co mmon 00:00:00 00:00:00 VISIT Spirit ESTAB PT - CHI LEVEL 4 [facility] 2022-12-17 2022-12-17 Telephone Demetrius, 1.2.840.1 102346139 2100 685082 Methodi 00:00:00 00:00:00 Harsh Ayala 12386.1.1 925 s t 3.430.2.7 Hospit a .3.490953 l .8 2022-12-17 2022-12-17 Telephone Demetrius, 1.2.840.1 992419901 2100 365323 Methodi 00:00:00 00:00:00 Harsh Ayala 99568.1.1 925 s t 3.430.2.7 Hospit a .3.908533 l .8 2022-12-05 2022-12-05 OFFICE STLMLC STLMLC [id number] Co mmon 00:00:00 00:00:00 VISIT Spirit ESTAB PT - CHI LEVEL 3 [facility] 2022-12-03 2022-12-03 (TEL) STLMLC STLMLC [id number] Co mmon 00:00:00 00:00:00 Spirit - CHI [facility] 2022-11-22 2022-11-22 [facility], 1.2.840.1 040848902 68999 41073 Methodi 13:54:51 23:59:00 Encounter Alecia Wall 27648.1.[address] 3.430.2.7 Hospit a .3.300844 l .8 2022-11-22 2022-11-22 [facility], 1.2.840.1 362669184 01928 05574 Methodi 13:54:51 23:59:00 Encounter Alecia Wall 00580.1.[address] 3.430.2.7 Hospit a .3.508372 l .8 2022-11-22 2022-11-22 Clinical Anatoly, 1.2.840.1 416877049 2100 112290 Methodi 10:30:00 15:44:21 Support Silvia 27810.1.[address] 3.430.2.7 Hospit a .3.651661 l .8 2022-11-22 2022-11-22 Clinical Anatoly, 1.2.840.1 396709392 2100 702288 Methodi 10:30:00 15:44:21 Support Silvia 38051.1.[address] 3.430.2.7 Hospit a .3.773684 l .8 2022-11-22 2022-11-22 [facility], 1.2.840.1 729482505 046681 5656 Methodi 11:45:00 14:41:41 Visit Alecia Wall 20066.1.[address] 3.430.2.7 Hospit a .3.836597 l .8 2022-11-22 2022-11-22 [facility], 1.2.840.1 250100357 746312 4726 Methodi 11:45:00 14:41:41 Visit Alecia Wall 01750.1.[address] 3.430.2.7 Hospit a .3.928403 l .8 2022-11-22 2022-11-22 Rangel Ron 1.2.840.1 086840643 324328 5195 Methodi 00:00:00 00:00:00 Only Tracy 09480.1.[address] 3.430.2.7 Hospit a .3.951353 l .8 2022-11-22 2022-11-22 Travel 1.2.840.1 1.2.095.698 4508 776200 Methodi 00:00:00 00:00:[address] 3.430.2.7 0.2.7.3.698 Ho spita .3.107634 084.8 l .8 2022-11-22 2022-11-22 Rangel Ron, 1.2.840.1 283366991 534054 7261 Methodi 00:00:00 00:00:00 Only Tracy 09608.1.[address] 3.430.2.7 Hospit a .3.918712 l .8 2022-11-22 2022-11-22 Travel 1.2.840.1 1.2.758.394 0766 143051 Methodi 00:00:00 00:00:[address] 3.430.2.7 0.2.7.3.698 Ho spita .3.528926 084.8 l .8 2022-11-13 2022-11-13 Office Demetrius, 1.2.840.1 612002313 796343 3774 Methodi 11:15:00 13:44:37 Visit Harsh Ayala 24573.1.1 674 s t 3.430.2.7 Hospit a .3.159311 l .8 2022-11-13 2022-11-13 Office Demetrius, 1.2.840.1 191413425 995266 3644 Methodi 11:15:00 13:44:37 Visit Harsh Ayala 22896.1.1 674 s t 3.430.2.7 Hospit a .3.730489 l .8 2022-11-13 2022-11-13 Rangel Sexton 1.2.840.1 808680443 35017 10759 Methodi 00:00:00 00:00:00 Only Cisco Alejandre 08736.1.[address] 3.430.2.7 Hospit a .3.262005 l .8 2022-11-13 2022-11-13 Orders Darshan, 1.2.840.1 075760747 77752 81821 Methodi 00:00:00 00:00:00 Only Cisco Alejandre 97534.1.[address] 3.430.2.7 Hospit a .3.800939 l .8 2022-11-07 2022-11-07 Travel 1.2.840.1 1.2.869.565 9818 217186 Methodi 00:00:00 00:00:[address] 3.430.2.7 0.2.7.3.698 Ho spita .3.157957 084.8 l .8 2022-11-07 2022-11-07 Travel 1.2.840.1 1.2.504.675 1125 533098 Methodi 00:00:00 00:00:[address] 3.430.2.7 0.2.7.3.698 Ho spita .3.893653 084.8 l .8 2022-10-31 2022-10-31 Office Tanesha [facility] 1.2.436.416 1013 8781 Univers 14:00:00 14:30:00 Visit Reed [facility] 4.2.7.2.686 Carley phillips PROFESSIO [id number] [place] [address] 2022-10-31 2022-10-31 Outpatient R REED ALMENDAREZ [facility] [id number] Univers 14:00:00 14:00:00 REED ALMENDAREZ [facility] 2022-10-10 2022-10-10 Outpatient R KIA ALMENDAREZOKKay [facility] [id number] Univers 10:30:00 10:30:00 REED ALMENDAREZ lobo [facility] 2022-10-05 2022-10-05 [facility] Demetrius, 1.2.840.1 [id number] 55718 29465 Methodi 06:50:14 23:59:00 [place] [address] 3.430.2.7 Hospit a .3.320014 l .8 2022-10-05 2022-10-05 [facility], 1.2.840.1 610848381 48879 42782 Methodi 06:50:14 23:59:00 Encounter Harsh Ayala 43183.1.[address] 3.430.2.7 Hospit a .3.690019 l .8 2022-10-05 2022-10-05 Anesthesia DuffyTaco 1.2.840.1 340487386 32767988 Methodi 08:46:00 09:59:00 Event José [address]922.1.[address] 3.430.2.7 Hospit a .3.302607 l .8 2022-10-05 2022-10-05 Anesthesia Taco Duffy 1.2.840.1 214611051 59150291 Methodi 08:46:00 09:59:00 Event José 79608.1.[address] 3.430.2.7 Hospit a .3.839308 l .8 2022-10-05 2022-10-05 Travel 1.2.840.1 1.2.293.283 9124 949778 Methodi 00:00:00 00:00:[address] 3.430.2.7 0.2.7.3.698 Ho spita .3.892847 084.8 l .8 2022-10-05 2022-10-05 Travel 1.2.840.1 1.2.997.388 1135 781366 Methodi 00:00:00 00:00:[address] 3.430.2.7 0.2.7.3.698 Ho spita .3.799360 084.8 l .8 2022-10-03 2022-10-03 [facility], 1.2.840.1 949831547 167223 5909 Methodi 12:10:00 12:15:00 Harsh Ayala 08051.1.1 210 s t 3.430.2.7 Hospit a .3.764254 l .8 2022-10-03 2022-10-03 Lab Zimmerman, 1.2.840.1 756736467 282072 8753 Methodi 12:10:00 12:15:00 Harsh Aayla 51963.1.1 210 s t 3.430.2.7 Hospit a .3.959656 l .8 2022-10-03 2022-10-03 Travel 1.2.840.1 1.2.315.672 6038 728942 Methodi 00:00:00 00:00:[address] 3.430.2.7 0.2.7.3.698 Ho spita .3.018629 084.8 l .8 2022-10-03 2022-10-03 Telephone Sirls, 1.2.840.1 [id number] 2099 107205 Methodi 00:00:00 00:00:[address] 3.430.2.7 Hospit a .3.599515 l .8 2022-10-03 2022-10-03 Travel 1.2.840.1 1.2.741.679 9577 737977 Methodi 00:00:00 00:00:[address] 3.430.2.7 0.2.7.3.698 Ho spita .3.195778 084.8 l .8 2022-10-03 2022-10-03 Telephone Sirls, 1.2.840.1 142219889 2099 963948 Methodi 00:00:00 00:00:[address] 3.430.2.7 Hospit a .3.684208 l .8 2022-10-02 2022-10-02 Telephone Sirls, 1.2.840.1 [id number] 2099 593226 Methodi 00:00:00 00:00:[address] 3.430.2.7 Hospit a .3.922663 l .8 2022-10-02 2022-10-02 Telephone Sirgricelda, 1.2.840.1 363286611 2100 430410 Methodi 00:00:00 00:00:[address] 3.430.2.7 Hospit a .3.712165 l .8 2022-09-28 2022-09-28 Outpatient R TREMAINE CHAUDHRY [facility] [id number] Univers 10:00:00 10:13:10 TREMAINE CHAUDHRY ity of [facility] 2022-09-28 2022-09-28 Office Richa [facility] 1.2.840.114 38646 952 Univers 10:00:00 10:13:10 Visit Tremaine [facility] 350.1.13.10 ity of [place] 4.2.7.2.686 Viraj as TIFFANIE?BLEA [phone] [address] OFFICE [facility] 2022-09-28 2022-09-28 Orders Doctor WILSON 1.2.840.114 472545 83 Univers 00:00:00 00:00:00 Only Unassigned, ANKIT 350.1.13.10 ity of [place] [facility] 4.2.7.2.686 Viraj as [id number] [address] 2022-09-27 2022-09-27 Office Demetrius, 1.2.840.1 193907589 428751 5591 Methodi 10:45:00 12:41:18 Visit Harsh Ayala 96164.1.1 114 s t 3.430.2.7 Hospit a .3.854759 l .8 2022-09-27 2022-09-27 Office Demetrius 1.2.840.1 [id number] 345498 8209 Methodi 10:45:00 12:41:18 Visit Harsh Ayala 04864.1.1 114 s t 3.430.2.7 Hospit a .3.623518 l .8 2022-09-27 2022-09-27 Orders Darshan 1.2.840.1 [id number] 78571 73999 Methodi 00:00:00 00:00:00 Only Cisco Alejandre [address]897.1.[address] 3.430.2.7 Hospit a .3.461750 l .8 2022-09-27 2022-09-27 Orders Darshan, 1.2.840.1 [id number] 25192 18581 Methodi 00:00:00 00:00:00 Only Cisco Alejandre 55688.1.[address] 3.430.2.7 Hospit a .3.834608 l .8 2022-09-21 2022-09-21 Travel 1.2.840.1 1.2.126.161 1561 391021 Methodi 00:00:00 00:00:[address] 3.430.2.7 0.2.7.3.698 Ho spita .3.203570 084.8 l .8 2022-09-21 2022-09-21 Travel 1.2.840.1 1.2.225.635 7767 026286 Methodi 00:00:00 00:00:[address] 3.430.2.7 0.2.7.3.698 Ho spita .3.747625 084.8 l .8 2022-09-18 2022-09-18 Outpatient DEMETRIUS, [facility] [id number] [address] 00:00:00 00:00:00 HARSH Jeff [facility] 2022-09-11 2022-09-11 Office Demetrius, 1.2.840.1 [id number] 284792 6432 Methodi 11:00:00 11:27:41 Visit Harsh Chan50.1.1 179 s t 3.430.2.7 Hospit a .3.214068 l .8 2022-09-11 2022-09-11 Office Demetrius, 1.2.840.1 [id number] 886807 2413 Methodi 11:00:00 11:27:41 Visit Harsh Ayala 77440.1.1 179 s t 3.430.2.7 Hospit a .3.693881 l .8 2022-09-05 2022-09-05 Outpatient R TANESHA REED [facility] [id number] Univers 11:00:00 11:00:00 STEVENCHRISSY REED itlobo [facility] 2022-08-28 2022-08-28 Outpatient R TREMAINE CHAUDHRY [facility] [id number] Univers 15:30:00 16:03:47 TREMAINE CHAUDHRY itlobo [facility] 2022-08-28 2022-08-28 Office [place] [facility] 1.2.840.114 [id number] Univers 15:30:00 16:03:47 Visit Tremaine Chaudhry [facility] 350.1.13. 10 ity of [place] 4.2.7.2.686 Viraj as TIFFANIE?BLEA [phone] [address] OFFICE [facility] 2022-08-28 2022-08-28 Refill Nate [facility] 1.2.840.114 [id number] Univers 00:00:00 00:00:00 [facility] 350.1.13.10 it y of [place] 4.2.7.2.686 Viraj as TIFFANIE?BLEA [phone] [address] OFFICE [facility] 2022-07-26 2022-07-26 Wash Worker 1, [facility] Bed [facility] 1. 2.840.114 [id number] Univers 20:00:00 22:30:00 Visit Reed Almendarez [place] 350.1.13. 10 [place].7.2.[place] [id number] [address] 2022-07-26 2022-07-26 Outpatient R REED ALMENDAREZ [facility] [id number] Univers 20:00:00 20:00:00 TANESHA REED ity [facility] 2022-07-26 2022-07-26 Orders Doctor WILSON 1.2.840.114 [id number] Univers 00:00:00 00:00:00 Only Unassigned, ANKIT 350.1.13.10 [facility] 4.2.7.2.686 Viraj as [id number] [address] 2022-07-23 2022-07-23 (TEL) STLMLC STLC [id number] Co mmon 00:00:00 00:00:00 [facility] 2022-07-18 2022-07-18 [facility] 1.2.211.024 [id number] Univers 11:00:00 11:20:[address] [facility] Mita [place] 350.1.13.10 [place] 4[place].7.2.[place] [id number] [address] 2022-07-18 2022-07-18 Outpatient R TANESHA [facility] [id number] Univers 11:00:00 11:00:00 TRAMAINE [facility] 2022-07-18 2022-07-18 Outpatient R TANESHA [facility] [id number] Univers 11:00:00 11:00:00 TANESHA [facility] 2022-07-18 2022-07-18 (TEL) [facility] [id number] Co mmon 00:00:00 00:00:00 [facility] 2022-06-29 2022-06-29 Outpatient R TREMAINE CHAUDHRY [facility] [id number] Univers 14:40:00 15:17:28 TREMAINE CHAUDHRY [facility] 2022-06-29 2022-06-29 [facility] 1.2.840.114 [id number] Univers 14:40:00 15:17:28 Visit [facility] 350.1.13.10 ity of [place] 4.2.7.2.686 Viraj as TIFFANIE?BLEA [phone] [address] OFFICE BUILDING 2022-06-29 2022-06-29 [facility] 1.2.840.114 [id number] Univers 00:00:00 00:00:00 [facility] 350.1.13.10 ity of [place] 4.2.7.2.686 Viraj as TIFFANIE?BLEA [phone] [place] yulisa [address] MEDICAL OFFICE BUILDING 2022-06-26 2022-06-26 Orders Doctor STEVE 1.2.840.114 [id number] Univers 00:00:00 00:00:00 Only Unassigned, ANKIT 350.1.13.10 [facility] 4.2.7.2.686 Viraj as [phone] [address] 2022-06-20 2022-06-20 OFFICE STLMLC STLMLC [id number] Co mmon 00:00:00 00:00:00 VISIT [facility] LEVEL 4 [facility] 2022-06-05 2022-06-05 OL DIG E/M STLMLC STLMLC [id number] Common 00:00:00 00:00:00 [facility] 11-20 Spir it [facility] 2022-06-05 2022-06-05 (TEL) STLC STLMLC [id number] Co mmon 00:00:00 00:00:00 [facility] 2022-06-04 2022-06-04 (TEL) STLC STLMLC [id number] Co mmon 00:00:00 00:00:00 [facility] 2022-06-04 2022-06-04 (TEL) STLC STLMLC [id number] Co mmon 00:00:00 00:00:00 [facility] 2022-05-25 2022-05-25 Piedad Chaudhry [facility] 1.2.840.114 [id number] Univers 00:00:00 00:00:00 [facility] 350.1.13.10 ity of [place] 4.2.7.2.686 Viraj as TIFFANIE?BLEA [id number] [address] MEDICAL OFFICE BUILDING 2022-05-24 2022-05-24 (TEL) STLC STLMLC [id number] Co mmon 00:00:00 00:00:00 [facility] 2022-05-16 2022-05-16 OFFICE STLMLC STLMLC [id number] Co mmon 00:00:00 00:00:00 VISIT [facility] ESTAB PT - CHI LEVEL 4 [facility] 2022-05-16 2022-05-16 SUB [facility] [id number] Common 00:00:00 00:00:00 [facility] Spirit WELLNESS - CHI VISIT [facility] 2022-04-13 2022-04-13 (TEL) STLC STLC [id number] Co mmon 00:00:00 00:00:00 [facility] CHI [facility] 2022-03-11 2022-03-11 Piedad Vital [facility] 1.2.840.114 [id number] Univers 00:00:00 00:00:00 Tejal VILLAFUERTE 350.1.13.10 it[place] of [place].2.[place] [phone] [place] [address] [address] BUILDING 2022-02-27 2022-02-27 (TEL) [facility] [id number] Co mmon 00:00:00 00:00:00 Spirit [facility] 2022-02-14 2022-02-14 (TEL) [facility] [id number] Co mmon 00:00:00 00:00:00 [facility] 2022-01-08 2022-01-08 Telephone Richa [facility] 1.2.840.114 [id number] Univers 00:00:00 00:00:00 Tremaine [facility] 350.1.13.10 ity of [place] 4.2.7.2.686 Viraj as TIFFANIE?BLEA [phone] [facility] [facility] [address] [place] MEDICAL OFFICE BUILDING 2021-12-20 2021-12-20 Orders Doctor STEVE 1.2.840.114 [id number] Univers 00:00:00 00:00:00 Only Unassigned, ANKIT 350.1.13.10 [place] of [place] [facility] 4.2.7.2.686 Viraj as [phone] [address] 2021-12-18 2021-12-18 Outpatient R TREMAINE CHAUDHRY [facility] [id number] Univers 10:40:00 11:10:32 TREMAINE CHAUDHRY [facility] 2021-12-13 2021-12-13 Orders Doctor WILSON 1.2.840.114 [id number] [facility] 00:00:00 00:00:00 Only Unassigned, ANKIT 350.1.13.10 ity of [facility] 4.2.7.2.686 Viraj as [phone] [address] 2021-10-25 2021-10-25 Office Chris 1.2.840.1 [id number] Methodi 11:00:00 12:33:49 Visit Ariana Luna 57518.1.[address] 3.430.2.7 Hospit a .3.738453 l .8 2021-10-25 2021-10-25 [facility] [id number] [address] [place] 00:00:00 00:00:00 ARIANA [address] 2021-10-24 2021-10-24 Orders Dagoberto 1.2.840.1 [id number] 36061 Methodi 00:00:00 00:00:00 Only Radha Chan50.1.[address] 3.430.2.7 Hospit a .3.283129 l .8 2021-10-19 2021-10-19 Telephone Richa LAJONAH 1.2.840.114 [id number] Univers 00:00:00 00:00:00 [facility] 350.1.13.10 ity of [place] 4.2.7.2.686 Viraj as TIFFANIE?BLEA [phone] [address] OFFICE [facility] 2021-10-18 2021-10-18 Telephone Demetrius, 1.2.840.1 [id number] Methodi 10:00:00 10:15:00 Consult Harsh Ayala 92630.1.1 043 s t 3.430.2.7 Hospit a .3.264867 l .8 2021-10-16 2021-10-16 Outpatient TREMAINE WORKMAN [facility] [id number] Univers 09:20:00 10:00:34 TREMAINE CHAUDHRY [facility] 2021-10-16 2021-10-16 Office Richa [facility] 1.2.840.114 [id number] Univers 09:20:00 10:00:34 Visit Tremaine [facility] 350.1.13.10 ity of [place] 4.2.7.2.686 Viraj as TIFFANIE?BLEA [phone] [facility] [place] [address] [place] MEDICAL OFFICE BUILDING 2021-10-16 2021-10-16 Outpatient TREMAINE WORKMAN [facility] [id number] Univers 09:20:00 10:00:34 TREMAINE CHAUDHRY lobo [facility] 2021-10-12 2021-10-12 Orders Fawad, 1.2.840.1 [id number] Methodi 00:00:00 00:00:00 Only Moriah [address]451.1.[address] 3.430.2.7 Hospit a .3.520546 l .8 2021-10-11 2021-10-11 Travel 1.2.840.1 1.2.195.659 6659 [id number] Methodi 00:00:00 00:00:[address] 3.430.2.7 0.2.7.3.698 Ho spita .3.227092 084.8 l .8 2021-10-10 2021-10-10 Outpatient TREMAINE WORKMAN [facility] [id number] Univers 08:29:06 23:59:00 TREMAINE CHAUDHRY lobo [facility] 2021-10-10 2021-10-10 [facility] 1.2.739.040 [id number] Univers 08:29:06 23:59:00 Encounter [facility] 350.1.13.10 [place] of [place].2.[place] [phone] [facility] [address] [place] [address] 2021-10-06 2021-10-06 Travel 1.2.840.1 1.2.077.398 [id number] [id number] Methodi 00:00:00 00:00:[address] 3.430.2.7 0.2.7.3.698 Ho spita .3.628962 084.8 l .8 2021-10-06 2021-10-06 Outpatient DEMETRIUS, [facility] [id number] [address] [place] 00:00:00 00:00:00 HARSH [address] 2021-10-06 2021-10-06 Outpatient DEMETRIUS [facility] [id number] 956 [place] 00:00:00 00:00:00 HARSH [address] 2021-10-02 2021-10-02 Orders Fawad, 1.2.840.1 [id number] Methodi 00:00:00 00:00:00 Only Moriah [address]893.1.[address] 3.430.2.7 Hospit a .3.728773 l .8 2021-09-28 2021-09-28 Office Demetrius, 1.2.840.1 [id number] 0644 Methodi 10:30:00 10:56:04 Visit Harsh Ayala 35618.1.1 503 s t 3.430.2.7 Hospit a .3.335638 l .8 2021-09-25 2021-09-25 Wash Worker Lab, Ang - Db [facility] 1.2.840.1 14 [id number] Univers 11:15:27 11:30:27 Visit Richa [facility] 350.1.13. 10 ity of [place] 4.2.7.2.686 Viraj as TIFFANIE?BLEA [phone] [place] [facility] 353 [facility] OFFICE [facility] 2021-09-25 2021-09-25 Outpatient R TREMAINE CHAUDHRY [facility] [id number] Univers 10:00:00 11:15:11 TREMAINE CHAUDHRY [facility] 2021-09-25 2021-09-25 Office [facility] 1.2.840.114 [id number] Univers 09:47:18 11:15:11 Visit [facility] 350.1.13.10 [facility] 4.2.7.2.686 Viraj as TIFFANIE?BLEA [phone] [address] OFFICE [facility] 2021-09-25 2021-09-25 Orders Doctor STEVE 1.2.840.114 [id number] Univers 00:00:00 00:00:00 Only Unassigned, ANKIT 350.1.13.10 it[place] of [place] [facility] 4.2.7.2.686 Viraj as [phone] [address] 2021-09-18 2021-09-[address] [facility] 1.2.840.114 [id number] Univers 00:00:00 00:00:00 Tejal A [place] 350.1.13.10 ity [facility] 4.2.7.2.686 [place] [phone] Tx dical NAL [address] [facility] 2021-09-18 2021-09-[address] [facility] 1.2.840.114 [id number] Univers 00:00:00 00:00:00 Tejal A [place] 350.1.13.10 it[place] of [place].7.2.[place] [phone] [place]x dical NAL 0[address] [facility] 2021-09-13 2021-09-13 Orders Doctor STEVE 1.2.840.114 [id number] Univers 00:00:00 00:00:00 Only Unassigned, ANKIT 350.1.13.10 ity of [place] [facility] 4.2.7.2.686 Viraj as [phone] [address] 2021-09-08 2021-09-[address] [facility] 1.2.840.114 [id number] Univers 00:00:00 00:00:00 Tejal A [place] 350.1.13.10 ity [facility] 4.2.7.2.[place] [phone] [place]x dical NAL 231 [facility] 2021-09-06 2021-09-06 Travel 1.2.840.1 1.2.337.338 3433 [id number] Methodi 00:00:00 00:00:[address] 3.430.2.7 0.2.7.3.698 Ho spita .3.447562 084.8 l .8 2021-09-01 2021-09-01 [facility] 1.2.840.114 [id number] [facility] 00:00:00 00:00:00 Tejal A [place] 350.1.13.10 [place] of [place].2.[place] [phone] [facility] [address] [facility] 2021-09-01 2021-09-01 Telephone [facility] 1.2.840.114 [id number] Univers 00:00:00 00:00:00 Tejal A [place] 350.1.13.10 it[place] of [place].7.2.[place] [id number] [facility] [address] [facility] 2021-08-10 2021-08-10 Orders Doctor WILSON 1.2.840.114 [id number] [facility] 00:00:00 00:00:00 Only Unassigned, ANKIT 350.1.13.10 [place] of [place] [facility] 4.2.7.2.686 Viraj as [phone] [address] 2021-08-04 2021-08-04 (TEL) [facility] [id number] Co mmon 00:00:00 00:00:00 [facility] 2021-07-25 2021-07-[address] [facility] 1.2.840.114 [id number] Univers 00:00:00 00:00:00 Tejal [place] 350.1.13.10 it[place] of [place].2.[place] [phone] [place] dic[address] 2021 2021 Telephone [facility] 1.2.840.114 8 [id number] Univers 00:00:00 00:00:00 Tejal A [place] 350.1.13.10 ity of [place].2.[place] [phone] [facility] 044 [facility] 2021-07-11 2021-07-11 Orders Doctor STEVE 1.2.840.114 [id number] Univers 00:00:00 00:00:00 Only Unassigned, ANKIT 350.1.13.10 ity of [place] [facility] 4.2.7.2.686 Viraj as [phone] [address] 2021-06-29 2021-06-29 Orders Doctor STEVE 1.2.840.114 [id number] Univers 00:00:00 00:00:00 Only Unassigned, ANKIT 350.1.13.10 ity of [place] [facility] 4.2.7.2.686 Viraj as [phone] [address] 2021-05-18 2021-05-18 Outpatient [facility] [id number] Common 00:00:00 00:00:00 [facility] 2020-12-29 2020-12-29 Outpatient [facility] [id number] Univers 00:00:00 00:00:00 BLANCA [facility]hton [facility] 2020-12-21 2020-12-21 Outpatient [facility] [id number] Univers 15:30:00 15:30:00 BLANCA [facility] 2020-12-19 2020-12-19 Outpatient [facility] [id number] Univers 09:00:00 09:00:00 TEJAL earl [facility] 2020-10-26 2020-10-26 Urgent [facility] 1.2.840.114 [id number] 19:10:20 19:41:18 Care [facility] 350.1.13.10 Christo 4.2.7.2.686 Professio [phone] nal [address] 2020-10-26 2020-10-26 Outpatient Myesha DHILLON [facility] [id number] Univers 19:00:00 19:00:00 INDIRA [facility] 2020-09-20 2020-09-20 Telephone [facility] 1.2.840.114 7 [id number] 00:00:00 00:00:00 Tejal Villaf[place] 350.1.13.10 [place] 4.2.7.2.[address] Profess[place] [phone] [address] 2020-08-26 2020-08-26 Office Zahraa [facility] 1.2.840.114 [id number] 10:00:41 11:52:04 Visit Tejal Villaf[place] 350.1.13.10 [place] 4.2.7.2.[address] Profess[place] [phone] [address] 2020-08-26 2020-08-26 Outpatient R ZAHRAA [facility] [id number] Univers 10:00:00 10:00:00 TEJALNESSA earl [facility] 2020-05-25 2020-05-25 Outpatient R ZAHRAA [facility] [id number] Univers 09:15:00 09:15:00 TEJAL ity [facility] 2020-05-23 2020-05-23 Outpatient R ZAHRAA [facility] [id number] Univers 09:40:00 09:40:00 TEJAL ity [facility] 2020-05-19 2020-05-19 [facility] 585 [id number] Univers 06:28:41 06:28:41 LAURA [facility] 2020-05-18 2020-05-18 Outpatient R AISHANACHO [facility] [id number] Univers 13:30:00 13:30:00 LAURA [facility] 2020-02-09 2020-02-09 Outpatient R [facility] [id number] Univers 12:00:00 12:00:00 LAURA [facility] 2019-06-17 2019-06-17 Outpatient Bere Blackburnt 27 [id number] Common 08:45:00 08:45:00 t Specialty/U Sp ilia Specialty rology - [facility] 2019-06-05 2019-06-05 Outpatient Bere Duque 27 11043 Common 10:44:00 10:44:00 t Specialty/U Sp ilia Specialty rology - [facility] 2019-05-26 2019-05-26 Outpatient Bere Blackburnt 26 [id number] Common 13:30:00 13:30:00 t Specialty/U Sp ilia Specialty rology - [facility] Results Test Description Test Time Test Comments Results Result Comments Source CBC W/AUTO DIFF 2023-05-03 00:00:00 Test Item Value Reference Range Interpretation Comme nts NUCLEATED RBCS (test code 0.0 /100 WBC'S See_Comment [Automated message] The = 01664-4) system which Bettery nerated this result transmit tom reference range: 0.0 /100 WBC'S. The reference range was not used to interpret th is result as normal/abnormal . ABSOLUTE EOSINOPHILS (test 0.19 K/UL See_Comment [Automated message] The code = 70784-5) system which generated this result transmit tom reference range: 0.00-0.5 0 K/UL. The reference range was not used to interpret th is result as normal/abnormal . ABSOLUTE LYMPHOCYTES (test 1.47 K/UL See_Comment [Automated message] The code = 17323-6) system which generated this result transmit tom reference range: 1.00-4.0 0 K/UL. The reference range was not used to interpret th is result as normal/abnormal . ABSOLUTE MONOCYTES (test 0.57 K/UL See_Comment [A utomated message] The code = 09517-4) system which generated this result transmit tom reference range: 0.20-1.0 0 K/UL. The reference range was not used to interpret th is result as normal/abnormal . ABSOLUTE NEUTROPHILS (test 3.38 K/UL See_Comment [Automated message] The code = 70576-2) system which generated this result transmit tom reference range: 1.50-7.5 0 K/UL. The reference range was not used to interpret th is result as normal/abnormal . BASOPHILS (test code = 0.7 % 58885-2) EOSINOPHILS (test code = 3.4 % 21812-8) HEMATOCRIT (test code = 39.4 % See_Comment [Au tomated message] The 04536-3) system which Bettery nerated this result transmit tom reference range: 34.0-45. 0 %. The reference range was not used to interpret th is result as normal/abnormal . HEMOGLOBIN (test code = 13.7 G/DL See_Comment [Au tomated message] The 718-7) system which ge nerated this result transmit tom reference range: 11.5-15. 5 G/DL. The reference range was not used to interpret th is result as normal/abnormal . LYMPHOCYTES (test code = 25.9 % 18725-1) MCH (test code = 44397-7) 34.3 PG See_Comment H [ Automated message] The system which ge nerated this result transmit tom reference range: 25.0-33. 0 PG. The reference range was not used to interpret th is result as normal/abnormal . MCHC (test code = 64522-5) 34.8 G/DL See_Comment [Automated message] The system which ge nerated this result transmit tom reference range: 31.0-36. 0 G/DL. The reference range was not used to interpret th is result as normal/abnormal . MCV (test code = 86380-1) 98.5 fL See_Comment [ Automated message] The system which ge nerated this result transmit tom reference range: 80.0-99. 0 fL. The reference range was not used to interpret th is result as normal/abnormal . MONOCYTES (test code = 10.1 % 94224-7) NEUTROPHILS (test code = 59.5 % 03994-4) PLATELET COUNT (test code 208 K/UL See_Comment [ Automated message] The = 51749-2) system which ge nerated this result transmit tom reference range: 130-400 K/UL. The reference range was not used to interpret th is result as normal/abnormal . RBC (test code = 90610-3) 4.00 M/UL See_Comment [ Automated message] The system which ge nerated this result transmit tom reference range: 3.80-5.4 0 M/UL. The reference range was not used to interpret th is result as normal/abnormal . RDW (test code = 17532-1) 12.5 % See_Comment [ Automated message] The system which ge nerated this result transmit tom reference range: 11.5-15. 0 %. The reference range was not used to interpret th is result as normal/abnormal . WBC (test code = 20727-0) 5.7 K/UL See_Comment [ Automated message] The system which ge nerated this result transmit tom reference range: 3.5-11.0 K/UL. The reference range was not used to interpret th is result as normal/abnormal . LIPID PANEL WITH REFLEX DIRECT [id number] 00:00:00 Test Item Value Reference Range Interpretation Comments CALC LDL CHOL (test 182 MG/DL See_Comment H [Automa tom message] code = 30745-7) The system [facility] generated this result transmit tom reference range : <100 MG/DL. The reference range was not used to interpret this result as normal/abnormal . CHOLESTEROL (test code 268 MG/DL See_Comment H [Aut omated message] = 2093-3) The system [facility] generated this result transmit tom reference range : <200 MG/DL. The reference range was not used to interpret this result as normal/abnormal . HDL CHOLESTEROL (test 61 MG/DL See_Comment [Auto mated message] code = 2085-9) The system [facility] generated this result transmit tom reference range : >39 MG/DL. The refe rence range was not u sed to interpret th is result as normal/abnormal . RISK RATIO LDL/HDL 2.98 RATIO See_Comment [Automat ed message] (test code = 75463-6) The sy stem which generated this result transmit tom reference range : <3.22 RATIO. Th e reference range was not used to interpret this result as normal/abnormal . TRIGLYCERIDES (test 119 MG/DL See_Comment [Automa tom message] code = 2571-8) The system [facility] generated this result transmit tom reference range : <150 MG/DL. The reference range was not used to interpret this result as normal/abnormal . COMPREHENSIVE METABOLIC [id number] 00:00:00 Test Item Value Reference Range Interpretation Comments ALBUMIN (test code = 4.1 G/DL See_Comment [Autom ated message] 1751-7) The system [facility] generated this result transmit tom reference range : 3.5-5.2 G/DL. T he reference range was not used to interpret this result as normal/abnormal . ALKALINE PHOSPHATASE 76 U/L See_Comment [Autom ated message] (test code = 6768-6) The sys tem which generated this result transmit tom reference range : 40-142 U/L. The reference range was not used to interpret this result as normal/abnormal . BILIRUBIN, TOTAL 0.4 MG/DL See_Comment [Automated message] (test code = 1975-2) The [employer] tem which generated this result transmit tom reference range : <=1.2 MG/DL. Th e reference range was not used to interpret this result as normal/abnormal . BUN (test code = 20 MG/DL See_Comment [Automated message] 3094-0) The system [facility] generated this result transmit tom reference range : 8-23 MG/DL. The reference range was not used to interpret this result as normal/abnormal . CALCIUM (test code = 9.6 MG/DL See_Comment [Autom ated message] 15094-3) The system [facility] generated this result transmit tom reference range : 8.5-10.5 MG/DL. The reference range was not used to interpret this result as normal/abnormal . CALC A/G RATIO (test 1.4 RATIO See_Comment [Autom ated message] code = 1759-0) The system [facility] generated this result transmit tom reference range : 1.0-2.6 RATIO. The reference range was not used to interpret this result as normal/abnormal . CALC BUN/CREAT (test 23 RATIO See_Comment [Autom ated message] code = 3097-3) The system [facility] generated this result transmit tom reference range : 6-28 RATIO. The reference range was not used to interpret this result as normal/abnormal . CALC GLOBULIN (test 2.9 G/DL See_Comment [Automa tom message] code = 98799-7) The system [facility] generated this result transmit tom reference range : 1.9-3.7 G/DL. T he reference range was not used to interpret this result as normal/abnormal . CARBON DIOXIDE (test 27 MEQ/L See_Comment [Autom ated message] code = 1962-8) The system [facility] generated this result transmit tom reference range : 19-31 MEQ/L. Th e reference range was not used to interpret this result as normal/abnormal . CHLORIDE (test code 107 MEQ/L See_Comment [Automa tom message] = 2074-0) The system [facility] generated this result transmit tom reference range : 95-107 MEQ/L. T he reference range was not used to interpret this result as normal/abnormal . CREATININE (test 0.88 MG/DL See_Comment [Automated message] code = 2160-0) The system [facility] generated this result transmit tom reference range : 0.60-1.30 MG/DL . The reference range was not used to interpret this result as normal/abnormal . eGFR (2020 CKD-EPI) 68 ML/MIN/1.73 See_Comment [Auto mated message] (test code = The system [facility] [employer] 18206-8) generated this result transmit tom reference range : >60 ML/MIN/1.73. Th e reference range was not used to interpret this result as normal/abnormal . GLUCOSE (test code = 68 MG/DL See_Comment L [Autom ated message] 1558-6) The system [facility] [employer] generated this result transmit tom reference range : 70-99 MG/DL. Th e reference range was not used to interpret this result as normal/abnormal . POTASSIUM (test code 4.0 MEQ/L See_Comment [Autom ated message] = 2823-3) The system [facility] [employer] generated this result transmit tom reference range : 3.5-5.4 MEQ/L. The reference range was not used to interpret this result as normal/abnormal . PROTEIN, TOTAL (test 7.0 G/DL See_Comment [Autom ated message] code = 2885-2) The system [email or web address] generated this result transmit tom reference range : 6.1-8.3 G/DL. T he reference range was not used to interpret this result as normal/abnormal . AST (test code = 17 U/L See_Comment [Automated message] 1920-8) The system [facility] [employer] generated this result transmit tom reference range : 9-40 U/L. The reference range was not used to interpret this result as normal/abnormal . ALT (test code = 11 U/L See_Comment [Automated message] 1742-6) The system [facility] [employer] generated this result transmit tom reference range : 5-40 U/L. The reference range was not used to interpret this result as normal/abnormal . SODIUM (test code = 145 MEQ/L See_Comment [Automa tom message] 2951-2) The system [facility] [employer] generated this result transmit tom reference range : 133-146 MEQ/L. The reference range was not used to interpret this result as normal/abnormal . POCT MOLECULAR [id number] 17:08:38 Test Item Value Reference Range Interpretation Comments POCT Molecular Strep (test code = Negative Negative 35289-7) Lab Interpretation (test code = Normal 89609-6) [facility] [id number] 20:58:00 Test Item Value Reference Range Interpretation Comments Case number (test code = [id number]) Surgical pathology See link below for report (test code = PDF Lab Report 2253) Result status (test code This is Final Report = [id number]) for [id number] [facility] 12 [id number] 20:21:29 Test Item Value Reference Range Interpretation Comments Ventricular rate (test 77 code = 253) Atrial rate (test code = 77 255) [place] interval (test code = 192 266) QRSD interval (test code 88 = 260) QT interval (test code = 396 264) QTC interval (test code 448 = 265) P axis 1 (test code = 26 267) QRS axis 1 (test code = 8 268) T wave axis (test code = 33 270) EKG impression (test Normal sinus code = 273) rhythm-Normal ECG-No previous ECGs available-Electronica lly Signed By Surinder Hanks MD ([id number]) on 04/15/2023 3:20:49 PM [facility] [id number] 13:04:00 Test Item Value Reference Range Interpretation Comments Glucose (test code 92 mg/dL 70-99 = 2345-7) BUN (test code = 17 mg/dL 8- 3094-0) Creatinine (test 0.80 mg/dL 0.57-1.00 code = 2160-0) eGFR (test code = 77 mL/min/1.73 >=59 67869-1) BUN/creatinine 10-17 ratio (test code = 3097-3) Sodium (test code = 142 mmol/L 484-359 7446-2) Potassium (test 3.8 mmol/L 3.5-5.2 code = 2823-3) Chloride (test code 105 mmol/L 96-106 = 2075-0) CO2 (test code = 22 mmol/L 2027-) Calcium (test code 9.4 mg/dL 8.7-10.3 = 68700-0) Protein (test code 6.9 g/dL 6.0-8.5 = 2885-2) Albumin (test code 4.6 g/dL 3.7-4.7 = 1751-7) Globulin, total 2.3 g/dL 1.5-4.5 (test code = 09647-9) Albumin/globulin 2.0 1.2-2.2 ratio (test code = 1759-0) Total bilirubin 0.3 mg/dL 0.0-1.2 (test code = 1975-2) Alkaline 75 See_Comment [Automated phosphatase (test message] T he code = 6768-6) system which generated this result transmit tom reference range : 44 - 121 IU/L. The reference range was not used to interpret this result as normal/abnormal . AST (test code = 16 See_Comment [Automated 192-8) message] The system which generated this result [...] code = Performed at: 01 MARIELA) - [facility] [address] [id number] Director: Froy Lujan MD, Phone: [phone] [facility] with platelet and [id number] 13:04:00 Test Item Value Reference Range Interpretation Comments WBC (test code = 7.0 See_Comment [Automated 4980-2) message] The system which generated this result transmitted reference range : 3.4 - 10.8 x10E3/uL. The reference range was not used to interpret this result as normal/abnormal . RBC (test code = 4.10 See_Comment [Automated 829-8) message] The system which generated this result transmitted reference range : 3.77 - 5.28 x10E6/uL. The reference range was not used to interpret this result as normal/abnormal . HGB (test code = 13.5 g/dL 11.1-15.9 718-7) HCT (test code = 40.9 % 34.0-46.6 4544-3) MCV (test code = 100 fL 79-97 H 787-2) MCH (test code = 32.9 pg 26.6-33.0 785-6) MCHC (test code = 33.0 g/dL 31.5-35.7 786-4) RDW (test code = 12.8 % 11.7-15.4 788-0) Platelet count (test 194 See_Comment [Autom ated code = 777-3) message] The system which generated this result transmitted reference range : 150 - 450 x10E3/uL. The reference range was not used to interpret this result as normal/abnormal . Neutrophils (test 64 % Not Estab. code = 770-8) Lymphocytes (test 25 % Not Estab. code = 736-9) Monocytes (test code 7 % Not Estab. = 5905-5) Eosinophils (test 3 % Not Estab. code = 713-8) Basophils (test code 1 % Not Estab. = 706-2) Neutrophils, absolute 4.5 See_Comment [Auto mated (test code = 751-8) message] The system which generated this result transmitted reference range : 1.4 - 7.0 x10E3/uL. The reference range was not used to interpret this result as normal/abnormal . Lymphocytes, absolute 1.7 See_Comment [Auto mated (test code = 731-0) message] The system which generated this result transmitted reference range : 0.7 - 3.1 x10E3/uL. The reference range was not used to interpret this result as normal/abnormal . Monocytes, absolute 0.5 See_Comment [Automa tom (test code = 742-7) message] The system which generated this result transmitted reference range : 0.1 - 0.9 x10E3/uL. The reference range was not used to interpret this result as normal/abnormal . Eosinophils, absolute 0.2 See_Comment [Auto mated (test code = 711-2) message] The system which generated this result transmitted reference range : 0.0 - 0.4 x10E3/uL. The reference range was not used to interpret this result as normal/abnormal . Basophils, absolute 0.1 See_Comment [Automa tom (test code = 704-7) message] The system which generated this result transmitted reference range : 0.0 - 0.2 x10E3/uL. The reference range was not used to interpret this result as normal/abnormal . Immature granulocytes 0 % Not Estab. (test code = 15801-6) Immature 0.0 See_Comment [Automated granulocytes, message] The absolute (test code = system which 65653-8) generated this result transmitted reference range : 0.0 - 0.1 x10E3/uL. The reference range was not used to interpret this result as normal/abnormal . MARIELA (test code = MARIELA) Performed at: 01 - [facility] [address] [id number] Director: Froy Lujan MD, Phone: [phone] Lab Interpretation Abnormal (test code = 61214-8) [facility] [id number] 13:04:00 Test Item Value Reference Range Interpretation [...] code = Performed at: 01 MARIELA) - [facility] [address] [id number] Director: Froy Lujan MD, Phone: [phone] [facility], [id number] 13:04:00 Test Item Value Reference Range Interpretation Comments aPTT (test 26 See_Comment This test has n ot been code = [place] [address]-3) monitoring unfractionated heparintherapy. aPTT-based ther apeutic ranges for unfractionated heparintherapy have not been establ ished. For general macario delines onHeparin monit oring, refer to the [facility] Directory of Se rvices. [Automated mess age] The system whic h generated this result transmitted ref erence range: 24 - 33 sec. The reference r debbie was not used to interpret this result as normal/abnor mal. MARIELA (test Performed at: 01 - code = MARIELA) [facility] [address] [place], [place] [id number] Director: Froy Lujan MD, Phone: [phone] [facility] SystemCom[facility] metabolic [id number] 13:04:00 Test Item Value Reference Range Interpretation Comments Glucose (test code 92 mg/dL 70-99 = 2345-7) BUN (test code = 17 mg/dL 8-27 3094-0) Creatinine (test 0.80 mg/dL 0.57-1.00 code = 2160-0) eGFR (test code = 77 mL/min/1.73 >=59 76041-1) BUN/creatinine 10-17 ratio (test code = 3097-3) Sodium (test code = 142 mmol/L 316-944 2271-2) Potassium (test 3.8 mmol/L 3.5-5.2 code = 2823-3) Chloride (test code 105 mmol/L 96-106 = 2075-0) CO2 (test code = 22 mmol/L 20-29 2027-9) Calcium (test code 9.4 mg/dL 8.7-10.3 = 35892-0) Protein (test code 6.9 g/dL 6.0-8.5 = 2885-2) Albumin (test code 4.6 g/dL 3.7-4.7 = 1751-7) Globulin, total 2.3 g/dL 1.5-4.5 (test code = 61345-0) Albumin/globulin 2.0 1.2-2.2 ratio (test code = 1759-0) Total bilirubin 0.3 mg/dL 0.0-1.2 (test code = 1975-2) Alkaline 75 See_Comment [Automated phosphatase (test message] T he code = 6768-6) system which generated this result transmit tom reference range : 44 - 121 IU/L. The reference range was not used to interpret this result as normal/abnormal . AST (test code = 16 See_Comment [Automated 192-8) message] The system which generated this result transmit tom reference range : 0 - 40 IU/L. The reference range was not used to interpret this result as normal/abnormal . ALT (test code = 9 See_Comment [Automated 4112-6) message] The system which generated this result transmit tom reference range : 0 - 32 IU/L. The reference range was not used to interpret this result as normal/abnormal . MARIELA (test code = Performed at: 01 MARIELA) - [facility] [address] [place], [place] [id number] Director: Froy Lujan MD, Phone: [phone] [facility] with platelet and [id number] 13:04:00 Test Item Value Reference Range Interpretation Comments WBC (test code = 7.0 See_Comment [Automated 7690-2) message] The system which generated this result transmitted reference range : 3.4 - 10.8 x10E3/uL. The reference range was not used to interpret this result as normal/abnormal . RBC (test code = 4.10 See_Comment [Automated 259-8) message] The system which generated this result transmitted reference range : 3.77 - 5.28 x10E6/uL. The reference range was not used to interpret this result as normal/abnormal . HGB (test code = 13.5 g/dL 11.1-15.9 718-7) HCT (test code = 40.9 % 34.0-46.6 4544-3) MCV (test code = 100 fL 79-97 H 787-2) MCH (test code = 32.9 pg 26.6-33.0 785-6) MCHC (test code = 33.0 g/dL 31.5-35.7 786-4) RDW (test code = 12.8 % 11.7-15.4 788-0) Platelet count (test 194 See_Comment [Autom ated code = 777-3) message] The system which generated this result transmitted reference range : 150 - 450 x10E3/uL. The reference range was not used to interpret this result as normal/abnormal . Neutrophils (test 64 % Not Estab. code = 770-8) Lymphocytes (test 25 % Not Estab. code = 736-9) Monocytes (test code 7 % Not Estab. = 5905-5) Eosinophils (test 3 % Not Estab. code = 713-8) Basophils (test code 1 % Not Estab. = 706-2) Neutrophils, absolute 4.5 See_Comment [Auto mated (test code = 751-8) message] The system which generated this result transmitted reference range : 1.4 - 7.0 x10E3/uL. The reference range was not used to interpret this result as normal/abnormal . Lymphocytes, absolute 1.7 See_Comment [Auto mated (test code = 731-0) message] The system which generated this result transmitted reference range : 0.7 - 3.1 x10E3/uL. The reference range was not used to interpret this result as normal/abnormal . Monocytes, absolute 0.5 See_Comment [Automa tom (test code = 742-7) message] The system which generated this result transmitted reference range : 0.1 - 0.9 x10E3/uL. The reference range was not used to interpret this result as normal/abnormal . Eosinophils, absolute 0.2 See_Comment [Auto mated (test code = 711-2) message] The system which generated this result transmitted reference range : 0.0 - 0.4 x10E3/uL. The reference range was not used to interpret this result as normal/abnormal . Basophils, absolute 0.1 See_Comment [Automa tom (test code = 704-7) message] The system which generated this result transmitted reference range : 0.0 - 0.2 x10E3/uL. The reference range was not used to interpret this result as normal/abnormal . Immature granulocytes 0 % Not Estab. (test code = 28501-2) Immature 0.0 See_Comment [Automated granulocytes, message] The absolute (test code = system which 24299-7) generated this result transmitted reference range : 0.0 - 0.1 x10E3/uL. The reference range was not used to interpret this result as normal/abnormal . MARIELA (test code = MARIELA) Performed at: [facility] [id number] Director: Froy Lujan MD, Phone: [phone] Lab Interpretation Abnormal (test code = 37691-3) [facility] SystemProth[facility] time with [id number] 13:04:00 Test Item Value Reference Range Interpretation [...] (test code = Performed at: MARIELA) - [facility] [id number] Director: Froy Lujan MD, Phone: [phone] [facility] System[facility] thromboplastin time, [id number] 13:04:00 Test Item Value Reference Range Interpretation Comments aPTT (test 26 See_Comment This test has n ot [place] code = [place] [address]-7) monitoring unfractionated heparintherapy. aPTT-based ther apeutic ranges for unfractionated heparintherapy have not been establ ished. For general macario delines onHeparin monit oring, refer to the [facility] Directory of Se rvices. [Automated mess age] The system [employer] generated this result transmitted ref erence range: 24 - 33 sec. The reference r debbie was not used to interpret this result as normal/abnor mal. MARIELA (test Performed at: - code = MARIELA) [facility] [id number] Director: Froy Lujan MD, Phone: [phone] [facility] System[facility], complete (clinic performed) 2022-11-22 18:34:09 [...] code 3.44 See_Comment [Auto mated message] = 9833) The system [employer] generated this result transmitted ref erence range: [...] code = 5.93 See_Comment [Autom ated message] 2111) The system [employer] generated this result transmitted ref erence range: [...] ated message] code = 5528) The system [employer] generated this result transmitted ref erence range: [...] code = 10.05 See_Comment [Auto mated message] 5654) The system [employer] generated this result transmitted ref erence range: 13.04 - 26.04 ml/(min*mmHg). The reference range was not used to interpr et this result as normal/abnormal . DLCO Predicted (test 19.54 code = 5421) DLCO LLN (test code = 13.04 5422) DLCO % Pre of 51.5 % Predicted (test code = 5424) DL/VA Pre (test code = 2.85 See_Comment [Aut omated message] 6706) The system [employer] generated this result transmitted ref erence range: [...] 72.1 % Predicted (test code = 5445) [facility] 2022-[facility]-22 18:34:09 [...] code 3.44 See_Comment [Auto mated message] = 5542) The system [employer] generated this result transmitted ref erence range: [...] See_Comment [Autom ated message] 5507) The system [employer] generated this result transmitted ref erence range: [...] ated message] code = 5528) The system [employer] generated this result transmitted ref erence range: [...] See_Comment [Auto mated message] 5423) The system [employer] generated this result transmitted ref erence range: 13.04 - 26.04 ml/(min*mmHg). The reference range was not used to interpr et this result as normal/abnormal . DLCO Predicted (test 19.54 code = 5421) DLCO LLN (test code = 13.04 5422) DLCO % Pre of 51.5 % Predicted (test code = 5424) DL/VA Pre (test code = 2.85 See_Comment [Aut omated message] 5437) The system [employer] generated this result transmitted ref erence range: [...] 72.1 % Predicted (test code = 5445) [facility] 2022-11-22 18:34:09 [...] [Auto mated message] = 5514) The system [employer] generated this result transmitted ref erence range: [...] code = 5.93 See_Comment [Autom ated message] 5509) The system [employer] generated this result transmitted ref erence range: [...] ated message] code = 5528) The system [employer] generated this result transmitted ref erence range: [...] See_Comment [Auto mated message] 5423) The system [employer] generated this result transmitted ref erence range: 13.04 - 26.04 ml/(min*mmHg). The reference range was not used to interpr et this result as normal/abnormal . DLCO Predicted (test 19.54 code = 5421) DLCO LLN (test code = 13.04 5422) DLCO % Pre of 51.5 % Predicted (test code = 5424) DL/VA Pre (test code = 2.85 See_Comment [Aut omated message] 9837) The system [employer] generated this result transmitted ref erence range: [...] 72.1 % Predicted (test code = 5445) [facility]-19 qualitative [id number] 22:40:55 Test Item Value Reference Interpretation Comments Range Interpretation Negative results do (test code = not preclude COVID-19 7320135) infection and should not be used asthe sole basis for treatment or other patient management decisions. Negativeresults must be combined with clinical observations, patient history, andepidemiological information. COVID-19 Not-Detected Not-Detected DISCLAIMER:This qualitative RT-PCR test was result (test code performed using = 69333-0) the [employer] SARS-CoV-2 Assa y ([facility]). This assay is available for i n vitro diagnosti c use under Food and Drug Administration (FDA) Emergency Use Authorizati on (EUA) and has been verified f or clinical use by the [facility]. Information on the FDA [...] aci d extraction, amplification, and real-time reverse beauty director polymerase rancho n reaction. COVID-19 See link below for PDF Case Number: qualitative RT-PCR Lab Report [id number] PDF (test code = 7070) [facility] [id number] 22:40:55 Test Item Value Reference Interpretation Comments Range Interpretation Negative results do (test code = not preclude COVID-19 8508026) infection and should not be used asthe sole basis for treatment or other patient management decisions. Negativeresults must be combined with clinical observations, patient history, andepidemiological information. COVID-19 Not-Detected Not-Detected DISCLAIMER:This qualitative RT-PCR test was result (test code performed using = 84325-9) the [employer] SARS-CoV-2 Assa y ([facility]). This assay is available for i n vitro diagnosti c use under Food and Drug Administration (FDA) Emergency Use Authorizati on (EUA) and has been verified f or clinical use by the [facility]. Information on the FDA policy for diagnostic tests for coronavirus disease- 2019 i s available at:https://www. fd a.gov/medical-d ev ices/emergency- si tuations-medica l- devices/faqs-di ag nostic-testing- sa rs-cov-2It is critical that health care providers and patients review the applicable fact sheet(s) i n interpreting or understanding t he test results th at are available upon request.METHODO LO GY:This assay utilizes [employer] ts for nucleic aci d extraction, amplification, and real-time reverse beauty director polymerase rancho n reaction. COVID-19 See link below for PDF Case Number: qualitative RT-PCR Lab Report [id number] 714 PDF (test code = 7070) [facility] [id number] 22:40:55 Test Item Value Reference Interpretation Comments Range Interpretation Negative results do (test code = not preclude COVID-19 9368118) infection and should not be used asthe sole basis for treatment or other patient management decisions. Negativeresults must be combined with clinical observations, patient history, andepidemiological information. COVID-19 Not-Detected Not-Detected DISCLAIMER:This qualitative RT-PCR test was result (test code performed using = 80215-0) the [employer] SARS-CoV-2 Assa y ([employer]). This assay is available for i n vitro diagnosti c use under Food and Drug Administration (FDA) Emergency Use Authorizati on (EUA) and has been verified f or clinical use by the [facility]. Information on the FDA policy for diagnostic tests for coronavirus disease- 2019 i s available at:https://www. fd a.gov/medical-d ev ices/emergency- si tuations-medica l- devices/faqs-di ag nostic-testing- sa rs-cov-2It is critical that health care providers and patients review the applicable fact sheet(s) i n interpreting or understanding t he test results th at are available upon request.ZEESHAN HAUSER GY:This assay utilizes re[employer] ts for nucleic aci d extraction, amplification, and real-time reverse beauty director polymerase rancho n reaction. COVID-19 See link below for PDF Case Number: qualitative RT-PCR Lab Report [id number] 714 PDF (test code = 7070) [facility] HfhmwjzsCEKX-KsO-0 (COVID-19) RNA [Presence] in Respiratory specimen by SHARIF with probe [id number] 16:40:55 Test Item Value Reference Range Interpretation Comments SARS-CoV-2 (COVID-19) RNA Not detected [Presence] in Respiratory specimen by SHARIF with probe detection (test code = 35794-3) Whether patient is employed in a Unknown healthcare setting (test code = 51004-0) Whether the patient has symptoms Unknown related to condition of interest (test code = 34737-1) Whether the patient was Unknown hospitalized for condition of interest (test code = 15479-7) Whether the patient was admitted Unknown to intensive care unit (ICU) for condition of interest (test code = 95449-4) Whether patient resides in a Unknown congregate care setting (test code = 83767-0) status (test code = Unknown 69800-7) Date and time of symptom onset Unknown (test code = 69794-1) [facility]Lipid Panel With LDL/HDL [id number] 00:00:00 Test Item Value Reference Range Interpretation Comments Cholesterol, Total 229 mg/dL See_Comment H [Automat ed message] (test code = 2093-3) The [employer] tem which generated this result transmitted ref erence range: 100-199 mg/dL. The reference r debbie was not used to interpret this result as normal/abnor mal. Triglycerides (test 200 mg/dL See_Comment H [Automa tom message] code = 2571-8) The system ich generated this result transmitted ref erence range: 0-149 mg /dL. The reference r debbie was not used to interpret this result as normal/abnor mal. HDL Cholesterol (test 56 mg/dL See_Comment [Auto mated message] code = 2085-9) The system [employer] generated this result transmitted ref erence range: >39 mg/d L. The reference range was not used to int erpret this result as normal/abnormal . Comp. Metabolic Panel (14) ([facility])2022-05-16 00:00:00 Test Item Value Reference Range Interpretation Comments Glucose (test code = 94 mg/dL See_Comment [Autom ated message] 7465-7) The system [employer] generated this result transmitted ref erence range: 65-99 mg /dL. The reference r debbie was not used to interpret this result as normal/abnor mal. BUN (test code = 18 mg/dL See_Comment [Automated message] 3684-0) The system [employer] generated this result transmitted ref erence range: 8-27 mg/ dL. The reference r debbie was not used to interpret this result as normal/abnor mal. Creatinine (test code 0.81 mg/dL See_Comment [Auto mated message] = 2160-0) The system [employer] generated this result transmitted ref erence range: 0.57-1.0 0 mg/dL. The refe rence range was not u sed to interpret this result as normal/abnor mal. BUN/Creatinine Ratio 22 12-28 (test code = 3097-3) Sodium (test code = 141 mmol/L See_Comment [Automa tom message] 1346-2) The system [employer] generated this result transmitted ref erence range: 134-144 mmol/L. The ref erence range was not u sed to interpret this result as normal/abnor mal. Potassium (test code = 3.8 mmol/L See_Comment [Aut omated message] 2079-3) The system [employer] generated this result transmitted ref erence range: 3.5-5.2 mmol/L. The ref erence range was not u sed to interpret this result as normal/abnor mal. Chloride (test code = 104 mmol/L See_Comment [Auto mated message] 5993-0) The system [employer] generated this result transmitted ref erence range: 96-106 m mol/L. The reference r debbie was not used to interpret this result as normal/abnor mal. Carbon Dioxide, Total 23 mmol/L See_Comment [Auto mated message] (test code = 2027-) The sys tem which generated this result transmitted ref erence range: 20-29 mm ol/L. The reference r debbie was not used to interpret this result as normal/abnor mal. Calcium (test code = 9.5 mg/dL See_Comment [Autom ated message] 77468-3) The system [facility] generated this result transmitted ref erence range: 8.7-10.3 mg/dL. The refe rence range was not u sed to interpret this result as normal/abnor mal. Protein, Total (test 6.6 g/dL See_Comment [Autom ated message] code = 2885-2) The system [facility] generated this result transmitted ref erence range: 6.0-8.5 g/dL. The reference r debbie was not used to interpret this result as normal/abnor mal. Albumin (test code = 4.4 g/dL See_Comment [Autom ated message] 1751-7) The system [facility] generated this result transmitted ref erence range: 3.7-4.7 g/dL. The reference r debbie was not used to interpret this result as normal/abnor mal. Globulin, Total (test 2.2 g/dL See_Comment [Auto mated message] code = 71414-7) The system [facility] generated this result transmitted ref erence range: 1.5-4.5 g/dL. The reference r debbie was not used to interpret this result as normal/abnor mal. A/G Ratio (test code = 2.0 1.2-2.2 1759-0) Bilirubin, Total (test <0.2 mg/dL See_Comment [Aut omated message] code = 1975-2) The system [facility] generated this result transmitted ref erence range: [...] [Auto mated message] = 1920-8) The system [employer] generated this result transmitted ref erence range: 0-40 IU/ L. The reference range was not used to int erpret this result as normal/abnormal . ALT (SGPT) (test code 10 IU/L See_Comment [Auto mated message] = 1742-6) The system [employer] generated this result transmitted ref erence range: 0-32 IU/ L. The reference range was not used to int erpret this result as normal/abnormal . Uric Acid, [id number] 00:00:00 Test Item Value Reference Range Interpretation Comments Uric Acid (test 4.0 mg/dL See_Comment [Automated message] The code = 3084-1) system which generated this result tra nsmitted reference range : 3.1-7.9 mg/dL. The refe rence range was not u sed to interpret this result as normal/abnormal . CBC With Differential/[id number] 00:00:00 Test Item Value Reference Range Interpretation Comments WBC (test code = 6.6 x10E3/uL See_Comment [Automated 6014-2) message] The sy stem which generated this result transmitted reference range : 3.4-10.8 x10E3/ uL. The reference r debbie was not used to interpret this result as normal/abnormal . RBC (test code = 4.01 x10E6/uL See_Comment [Automate d 669-8) message] The sy stem which generated this result transmitted reference range : 3.77-5.28 x10E6 /uL. The reference r debbie was not used to interpret this result as normal/abnormal . Hemoglobin (test code 13.1 g/dL See_Comment [Auto mated = 778-7) message] The sy stem which generated this result transmitted reference range : 11.1-15.9 g/dL. The reference range was not used to interpret this result as normal/abnormal . Hematocrit (test code 39.3 % See_Comment [Auto mated = 8544-3) message] The sy stem which generated this [...] % Not Estab. % (test code = 41416-3) Immature Grans (Abs) 0.0 x10E3/uL See_Comment [Autom ated (test code = 94626-6) messag e] The system which generated this result transmitted reference range : 0.0-0.1 x10E3/u L. The reference r debbie was not used to interpret this result as normal/abnormal . NRBC (test code = 33605-8) Hematology Comments: (test code = 55043-8) TSH reflex to [id number] 00:00:00 Test Item Value Reference Range Interpretation Comments TSH (test code = 2.180 uIU/mL See_Comment [Automated message] The 43828-2) system which ge nerated this result tra nsmitted reference range : 0.450-4.500 uIU /mL. The reference range was not used to interpr et this result as normal/abnormal .
[2023-08-18] MEDS ORDERED: LACTULOSE 20 GM/30 ML UCUP ONE (16:38)
[2023-08-18] MEDS ORDERED: BISACODYL 10 MG RECTAL SUPP ONE (17:56)
[2023-08-18] MEDS ORDERED: FLEET ENEMA ADULT PR ONE (18:07)
--- NOTE | 2023-08-18 18:18 | RAD REPORT ---
EXAM DESCRIPTION: RAD - Abdomen 1 View (KUB) - 08/18/2023 6:05 pm CLINICAL HISTORY: Abdomen pain FINDINGS: The bowel gas pattern is unremarkable. A moderate amount of stool is present within the colon. Cement has been placed into lumbar vertebral fractures
[2023-08-18] MEDS ORDERED: MAGNESIUM HYDROXIDE 8% 30 ML ONE (18:44)
--- NOTE | 2023-08-18 19:38 | EDPHYS ---
Physician Documentation [facility] Name: Shwetha Chirinos Age: 78 yrs Sex: Female : 1945 Arrival Date: 08/18/2023 Time: 16:03 Bed 5 Private MD: ED Physician Ernst Aaron HPI: 08/18 17:14 This 78 yrs old Female presents to ER via Ambulatory with complaints of Constipation. sb4 17:42 patient states that she has crohns disease, not on any medications, and typically has sb4 frequent diarrhea but she has been constipation for about 1 week now. she states that she has not been able to have a regular BM despite OTC stool softeners, laxatives, enemas, and prune juice. endorses mild nausea but denies significant abdominal pain. reports rectal pain from straining. no blood in stool/when wiping. states she is still passing gas and has very small BMs. Historical: - Allergies: 16:30 Codeine; hb - Home Meds: 16:30 rivastigmine tartrate 1.5 mg Oral cap 1 cap 2 times per day [Active]; hb - PMHx: 16:30 COPD; Hypertension; hb - PSHx: 16:30 Cholecystectomy; hysterectomy; hb ROS: 17:42 Constitutional: Negative for fever, chills, and weight loss, sb4 17:42 Abdomen/GI: Positive for abdominal pain, nausea, constipation, rectal pain, 17:42 All other systems are negative, Exam: 17:42 Constitutional: This is a well developed, well nourished patient who is awake, alert, sb4 and in no acute distress. Head/Face: Normocephalic, atraumatic. Eyes: Extra-ocular motions intact. Periorbital areas with no swelling, redness, or edema. ENT: Mucous membranes moist. Cardiovascular: Regular rate and rhythm with a normal S1 and S2. Respiratory: Lungs have equal breath sounds bilaterally, clear to auscultation and percussion. No rales, rhonchi or wheezes noted. No increased work of breathing, no retractions or nasal flaring. Abdomen/GI: Soft, non-tender, no distension. Skin: Warm, dry with normal turgor. Normal color with no rashes, no lesions, and no evidence of cellulitis. MS/ Extremity: Pulses equal, no cyanosis. Neurovascular intact. Full, normal range of motion. Neuro: Awake and alert, GCS 15, oriented to person, place, time, and situation. Motor strength 5/5 in all extremities. Sensory grossly intact. Vital Signs: 16:21 BP 142 / 75; Pulse 105; Resp 16; Temp 98.8(O); Pulse Ox 97% on R/A; Weight 54.43 kg; hb Height 5 ft. 5 in. ; Pain 5/10; 17:20 BP 146 / 81; Pulse 82; Resp 16; Pulse Ox 99% on R/A; rs5 18:30 BP 150 / 77; Pulse 88; Resp 17; Pulse Ox 99% on R/A; rs5 16:21 Body Mass Index 19.97 (54.43 kg, 165.1 cm) hb 16:21 Pain Scale: Adult hb MDM: 16:13 Patient medically screened. sb4 17:42 Differential diagnosis: constipation, fecal impaction, SBO. sb4 19:37 Data reviewed: vital signs, nurses notes, and as a result, I will discharge patient. sb4 Test considered but Not performed: Labs: not indicated, no obstruction on KUB, no vomiting or fever. Care significantly affected by the following chronic conditions: Hypertension, Chronic Obstructive Pulmonary Disease. Counseling: I had a detailed discussion with the patient and/or guardian regarding the historical points, exam findings, and any diagnostic results supporting the discharge/admit diagnosis, to return to the emergency department if symptoms worsen or persist or if there are any questions or concerns that arise at home. 08/18 17:44 Order name: Abdomen 1 View (KUB) XRAY; Complete Time: 18:19 sb4 Administered Medications: 16:30 Drug: Lactulose PO 20 grams 30 ml PO once Volume: 30 ml; Route: PO; rs5 17:10 Follow up: Response: No adverse reaction; Pt denies the need to have a BM, provider rs5 notified 17:49 Not Given (Physician Discretion): bisacodylenema (10 mg/30ml) 10 mg SD once sb4 18:17 Drug: Fleet Enema SD 133 ml SD once; may repeat once Route: SD; rs5 18:30 Follow up: Response: No adverse reaction; Pt denies the need to have a bowel movement. rs5 Pt tolerated fleet enema well 18:30 Drug: Milk of Magnesia PO Suspension 400 mg/5 mL 30 ml PO once Route: PO; rs5 Disposition Summary: 08/18/23 19:37 Discharge Ordered Notes: Location: Home sb4 Problem: an ongoing problem sb4 Symptoms: are resolved sb4 Condition: Stable sb4 Diagnosis - Constipation sb4 Followup: sb4 - With: Emergency Department - When: As needed - Reason: Trouble breathing, Worsening of condition Discharge Instructions: - Discharge Summary Sheet sb4 - Constipation, Adult, [id number] sb4 Forms: - Medication Reconciliation Form sb4 - Thank You Letter sb4 - Antibiotic Education sb4 - Prescription Opioid Use sb4 - Patient Portal Instructions sb4 - Leadership Thank You Letter sb4 Addendum: 08/21/2023 10:23 I was immediately available for consultation during this patient's visit. I did not e c2 personally see the patient or guide the patient's care.. Signatures: Dispatcher [employer] EDJing Funes RN RN Kiesha Ghosh PA-C PA-C sb4 Devan Weinstein RN RN rs5 Ernst Aaron MD MD ec2 Corrections: (The following items were deleted from the chart) 08/18 17:45 17:42 patient states that she has crohns disease, not on any medications, and typically sb4 has frequent diarrhea but she has been constipation for about 1 week now. she states that she has not been able to have a regular BM despite OTC stool softeners, laxatives, enemas, and prune juice. endorses mild nausea but denies significant abdominal pain. reports rectal pain from straining. no blood in stool/when wiping. sb4
--- NOTE | 2023-08-18 19:38 | ER ---
Nurse's Notes [facility] Name: Shwetha Chirinos Age: 78 yrs Sex: Female : 1945 Arrival Date: 08/18/2023 Time: 16:03 Bed 5 Private MD: Diagnosis: Constipation Presentation: 08/18 16:21 Chief complaint: Constipation and nausea x 3 days, unrelieved by laxatives, stool hb softeners, fleet enema, and prunes. Last normal BM was one week ago. Hx of Crohns. Coronavirus screen: At this time, the client does not indicate any symptoms associated with coronavirus-19. Ebola Screen: No symptoms or risks identified at this time. Initial Sepsis Screen: Does the patient meet any 2 criteria? No. Patient's initial sepsis screen is negative. Does the patient have a suspected source of infection? No. Patient's initial sepsis screen is negative. Risk Assessment: Do you want to hurt yourself or someone else? Patient reports no desire to harm self or others. Onset of symptoms was August 15, 2023. 16:21 Method Of Arrival: Ambulatory hb 16:21 Acuity: TAYLOR 3 hb Historical: - Allergies: 16:30 Codeine; hb - Home Meds: 16:30 rivastigmine tartrate 1.5 mg Oral cap 1 cap 2 times per day [Active]; hb - PMHx: 16:30 COPD; Hypertension; hb - PSHx: 16:30 Cholecystectomy; hysterectomy; hb Screenin:[address] [facility] ED Fall Risk Assessment (Adult) History of falling in the last 3 months, rs5 including since admission. 20:15 Abuse screen: Denies threats or abuse. Nutritional screening: No deficits noted. jb4 Tuberculosis screening: No symptoms or risk factors identified. Assessment: 16:15 General: Appears in no apparent distress. uncomfortable, Behavior is calm, cooperative. rs5 16:15 Pain: Denies pain. Neuro: Level of Consciousness is awake, alert, obeys commands, rs5 Oriented to person, place, time, situation. Cardiovascular: Heart tones S1 S2 present Rhythm is regular. Respiratory: Airway is patent Respiratory effort is even, unlabored, Respiratory pattern is regular, symmetrical, Breath sounds are clear bilaterally. GI: Abdomen is flat, non-distended, Bowel sounds present X 4 quads. Abd is soft and non tender X 4 quads. Reports constipation, since 3 days ago last BM one week ago. : No signs and/or symptoms were reported regarding the genitourinary system. EENT: No signs and/or symptoms were reported regarding the EENT system. Derm: Skin is intact, Skin is pink, warm \T\ dry. Musculoskeletal: Range of motion: intact in all extremities. 17:20 Reassessment: No changes from previously documented assessment. rs5 17:21 Reassessment: Prune juice provided per provider request. rs5 18:20 Reassessment: To bedside for fleet enema administration. Pt tolerated procedure well. rs5 Pt did not have a BM and denies the need to have a BM. 18:55 Reassessment: Patient and/or family updated on plan of care and expected duration. Pain rs5 level reassessed. Patient is alert, oriented x 3, equal unlabored respirations, skin warm/dry/pink. GI: Patient currently denies abdominal pain, nausea, vomiting. 19:00 Reassessment: Patient appears in no apparent distress at this time. Patient and/or jb4 family updated on plan of care and expected duration. Pain level reassessed. Patient is alert, oriented x 3, equal unlabored respirations, skin warm/dry/pink. 20:15 Reassessment: Patient appears in no apparent distress at this time. Patient and/or jb4 family updated on plan of care and expected duration. Pain level reassessed. Patient is alert, oriented x 3, equal unlabored respirations, skin warm/dry/pink. Vital Signs: 16:21 BP 142 / 75; Pulse 105; Resp 16; Temp 98.8(O); Pulse Ox 97% on R/A; Weight 54.43 kg; hb Height 5 ft. 5 in. ; Pain 5/10; 17:20 BP 146 / 81; Pulse 82; Resp 16; Pulse Ox 99% on R/A; rs5 18:30 BP 150 / 77; Pulse 88; Resp 17; Pulse Ox 99% on R/A; rs5 16:21 Body Mass Index 19.97 (54.43 kg, 165.1 cm) hb 16:21 Pain Scale: Adult hb ED Course: 16:11 Patient arrived in ED. mg5 16:12 Kiesha Escalona PA-C is PHCP. sb4 16:12 Ernst Aaron MD is Attending Physician. sb4 16:24 Devan Weinstein, RN is Primary Nurse. rs5 16:30 Triage completed. hb 16:30 Arm band placed on. hb 18:06 Abdomen 1 View (KUB) XRAY In Process Unspecified. EDMS 20:15 Patient has correct armband on for positive identification. Bed in low position. Call jb4 light in reach. Side rails up X 1. Client placed on continuous cardiac and pulse oximetry monitoring. NIBP monitoring applied. 20:15 No provider procedures requiring assistance completed. Patient did not have IV access jb4 during this emergency room visit. Administered Medications: 16:30 Drug: Lactulose PO 20 grams 30 ml PO once Volume: 30 ml; Route: PO; rs5 17:10 Follow up: Response: No adverse reaction; Pt denies the need to have a BM, provider rs5 notified 17:49 Not Given (Physician Discretion): bisacodylenema (10 mg/30ml) 10 mg AK once sb4 18:17 Drug: Fleet Enema AK 133 ml AK once; may repeat once Route: AK; rs5 18:30 Follow up: Response: No adverse reaction; Pt denies the need to have a bowel movement. rs5 Pt tolerated fleet enema well 18:30 Drug: Milk of Magnesia PO Suspension 400 mg/5 mL 30 ml PO once Route: PO; rs5 Intake: Outcome: 19:37 Discharge ordered by MD. sb4 20:15 Discharged to home ambulatory, jb4 20:15 Condition: stable 20:15 Discharge instructions given to patient, Instructed on discharge instructions, follow up and referral plans. Demonstrated understanding of instructions, follow-up care, 20:15 Patient left the ED. jb4 Signatures: Dispatcher [employer] EDMS Jing Degroot RN RN hb Bryson, James, RN RN jb4 Kiesha Escalona PA-C PA-C sb4 Devan Weinstein, TORRES RN rs5 [place] Sol[place] mg5 Corrections: (The following items were deleted from the chart) 16:32 16:21 Chief complaint: Constipation, burning abdominal pain, and nausea x 3 days, hb unrelieved by laxatives, stool softeners, fleet enema, and prunes. Last normal BM was one week ago. Hx of Crohns. hb
[2023-08-18 20:20] VITALS: TEMP 98.8
[2023-08-18 20:21] VITALS: O2SAT 99
[2023-08-18 20:22] VITALS: BP 150/77
== END 2023-08-18 20:15 | disposition home or self-care (01) ==
LOC: ER 16:03
DX: K59.00 Constipation, unspecified (principal); Z88.5 Allergy status to narcotic agent
CPT/HCPCS: 74018; 99283

== ENCOUNTER 2023-08-28 10:57 | Emergency (ER) | payer OTHER, MEDICARE ==
--- OUTSIDE RECORDS SUMMARY | 2023-08-28 11:07 | XMS REPORT | Continuity of Care Document ---
:1945 Author Organization [facility] t Address [address] [facility] [address] [place] [address] Care Team Providers Name Role Phone Tejal Vital MD Primary Care Physician [phone] Lonnie Gonzales Attending Clinician Unavailable LAURA HARVEY Attending Clinician Unavailable [email or web address] Attending Clinician Unavailable Scott Partida MD Attending Clinician Chuck Watts MD Attending Clinician Marti Live NP [...] MACDONALD, Lesly Attending Clinician Unavailable Doctor Unassigned, Makena Attending Clinician Unavailable 1, [facility] Attending Clinician Unavailable Tejal Vital MD Attending Clinician [phone] Ariana Perez MD Attending Clinician Dagoberto [...] Expiration Date S abdulkadir MEDICARE PART A [id number] 2012 \T\ B 00:00:00 [place] [id number] 2019 HEALTHCARE 00:00:00 MEDICARE SUPPLEMENT [facility] [id number] 2012 Common 00:00:00 [facility] AARP C1 [id number] 2018 Common 00:00:00 [facility] Problems Condition Condition Condition Status Onset Resolution [...] (gastroeso (gastroeso it y of phageal phageal [place] reflux reflux Medical disease) disease) Branch [id number] Dementia Problem Commo n without Spirit behavioral - [facility], [facility] unspecifie Medica l d dementia Center type [id number] Daytime Problem Comm on 00 somnolence Spirit - [facility] [id number] Memory Problem Common change Spirit [facility] Crohns Crohn''s Problem Common disease disease Spirit with - [facility] gastrointe stinal tract location [id number] Age Problem Common related Spirit osteoporos - [facility] fracture presence [id number] Chronic Problem Common obstructiv [facility] e - [facility] d COPD Center type Mental Mental Problem Common retardatio deficiency Sp ilia n - [facility] [id number] GERD Problem Common without Spirit esophagiti - [facility] s [facility] [id number] Basal cell Problem Co mmon carcinoma [facility] of nose [facility] [id number] Mixed Problem Common hyperlipid Spirit emia [facility] [id number] Essential Problem Comm on (primary) Spirit hypertensi - [facility] on [facility] Allergies, Adverse Reactions, Alerts Allergy Allergy Status [...] Codeine Active dizziness Commo n Spirit - [facility] Social History Social Habit Start Date Stop Date Quantity Comments Source Gender identity [facility] [place] [facility] Sexual orientation [facility] History of Tobacco Common Spirit - Use [facility] Sex Assigned At Common Sp ilia - [facility] Alcohol intake 2023-07-10 2023-07-10 Current [facility] 00:00:00 00:00:00 non-drinker of Hospital alcohol (finding) History of Social 2023-07-10 2023-07-[address] function 00:00:00 00:00:00 Hospital Exposure to 2022-10-21 2022-10-31 Not sure University of SARS-CoV-2 (event) 00:00:00 13:47:00 [facility] Cigarettes smoked 2021-10-25 2021-10-[address] current (pack per 00:00:00 00:00:00 Hospita l day) - Reported Cigarette 2021-10-25 2021-10-25 [facility] pack-years 00:00:00 00:00:00 Hospital Tobacco use and 2021-10-25 2021-10-25 Smokeless [facility] exposure 00:00:00 00:00:00 tobacco non-user Hospital Alcohol Comment 2020-05-23 2020-05-23 seldom [facility] of 00:00:00 00:00:00 [place] [facility] History [facility] 2020-05-23 2020-05-23 99 [place] o f Alcohol Frequency 00:00:00 00:00:00 [facility] edical Branch History SDDE 2020-05-23 2020-05-23 99 [place] o f Alcohol Std Drinks 00:00:00 00:00:00 [place] [facility] History [facility] 2020-05-23 2020-05-23 99 [place] o f Alcohol Binge 00:00:00 00:00:00 [facility] al Branch Smoking Status Start Date Stop [...] st ORAL) 10:53: daily. Hospita 18 l omeprazole 0 Yes 40mg QD Take 1 Metho di (PriLOSEC) 9-[address] 40 MG 10:53: (40 mg Hospita capsule 18 total) by l mouth daily. acetaminoph 0 Yes QD Take by Met hodi en (TYLENOL 9-[address] ORAL) 10:53: daily. Hospita 18 l meloxicam 2022- No [id number] 15mg QD Take 1 Methodi (MOBIC) 15 8-10 09-10 tablet (15 st mg tablet 00:00: 04:59 mg total) Ho spita 00 :00 by mouth l daily for 30 days. meloxicam 2022- No [id number] 15mg QD Take 1 Methodi (MOBIC) 15 8-10 09-10 tablet (15 st mg tablet 00:00: 04:59 mg total) Ho spita 00 :00 by mouth l daily for 30 days. Rosuvastati Rosuvastati 0 No 1{table QD Rosuvastat n Calcium 5 n Calcium 5 7-21 t} in Calcium MG MG 00:00: 5 MG 00 Rosuvastati Rosuvastati 0 No 1{table QD Rosuvastat n Calcium 5 n Calcium 5 7-21 t} in Calcium MG MG 00:00: 5 MG 00 Rosuvastati Rosuvastati 0 No 1{table QD Rosuvastat n Calcium 5 n Calcium 5 7-21 t} in Calcium MG MG 00:00: 5 MG 00 Rosuvastati Rosuvastati 0 No 1{table QD Rosuvastat n Calcium 5 n Calcium 5 7-21 t} in Calcium MG MG 00:00: 5 MG 00 fluticasone 0 Yes [id number] 2{spray Use 2 Univers propionate 04-25 } Sprays in ity of 50 00:00: each [place] mcg/actuati 00 nostril in Oh dical on nasal the Branch spray morning. benzonatate 0 Yes [id number] 100mg Take 1 Univers (TESSALON 7-06 capsule by ity of [place]) 100 00:00: mouth [place] mg capsule 00 every 8 Medica l (eight) Branch hours as needed for Cough. fluticasone 2023-0 Yes [id number] 2{spray Use 2 Univers propionate 7-06 } Sprays in ity of 50 00:00: each [place] mcg/actuati 00 nostril in Me dical on nasal the Branch spray morning. benzonatate 2023-0 Yes [id number] 100mg Take 1 Univers (TESSALON 7-06 capsule by itlobo of [employer]) 100 00:00: mouth [place] mg capsule 00 every 8 Medica l (eight) Branch hours as needed for Cough. fluticasone 2023-0 Yes [id number] 2{spray Use 2 Univers propionate 7-06 } Sprays in ity of 50 00:00: each [place] mcg/actuati 00 nostril in Me dical on nasal the Branch spray morning. benzonatate 2023-0 Yes [id number] 100mg Take 1 Univers (TESSALON 7-06 capsule by itlobo [employer]) 100 00:00: mouth [place] mg capsule 00 every 8 Medica l (eight) Branch hours as needed for Cough. omeprazole 2022-0 Yes 40mg QD Take 1 Metho di (PriLOSEC) 6-[address] 40 MG 12:05: (40 mg Hospita capsule 51 total) by l mouth daily. acetaminoph 3-0 Yes QD Take by Met pineda en (TYLENOL 6-[address] ORAL) 12:05: daily. Hospita 51 l fluticasone 3-0 3- No QD Inhale 1 M ethodi -umeclidin- 6-20 07-09 inhalation s t vilanter 00:00: 04:59 s once Hospit a (TRELEGY 00 :00 daily for l ELLIPTA) 90 days. 200-62.5-25 mcg blister with device fluticasone 3-0 3- No QD Inhale 1 M ethodi -umeclidin- 6-20 07-09 inhalation s t vilanter 00:00: 04:59 s once Hospit a (TRELEGY 00 :00 daily for l ELLIPTA) 90 days. 200-62.5-25 mcg blister with device fluticasone 3-0 2023- No QD Inhale 1 M ethodi -umeclidin- 6-20 09-19 inhalation s t vilanter 00:00: 04:59 s once Hospit a (TRELEGY 00 :00 daily for l ELLIPTA) 90 days. 200-62.5-25 mcg blister with device omeprazole 2022-0 Yes 40mg QD Take 1 Metho di (PriLOSEC) 5-[address] 40 MG 11:08: (40 mg Hospita capsule 38 total) by l mouth daily. acetaminoph 2022-0 Yes QD Take by Met miriam en (TYLENOL 5-[address] ORAL) 11:08: daily. Hospita 38 l fluticasone 2022-0 2022- No QD Inhale 1 M ethodi furoate-ko 12-27- inhalation s t anteroL 00:00: 00:00 s daily. Hospi ta (Breo 00 :00 l Ellipta) 200-25 mcg/dose blister with device powder for inhalation levalbutero 2022-0 2022- No 2{puff} Q6H Inhale 2 Methodi l (Xopenex 3 05-[address] HFA) 45 00:00: 00:00 every 6 Hospit a mcg/actuati 00 :00 (six) l on inhaler hours as needed for wheezing. fluticasone 2022-0 2022- No QD Inhale 1 M ethodi furoate-ko 12-27-17 inhalation s t anteroL 00:00: 00:00 s daily. Hospi ta (Breo 00 :00 l Ellipta) 200-25 mcg/dose blister with device powder for inhalation levalbutero 2022-0 2022- No 2{puff} Q6H Inhale 2 Methodi l (Xopenex 3- 05-[address] HFA) 45 00:00: 00:00 every 6 Hospit a mcg/actuati 00 :00 (six) l on inhaler hours as needed for wheezing. fluticasone 2022-0 2022- No QD Inhale 1 M ethodi furoate-ko 12-27-17 inhalation s t anteroL 00:00: 00:00 s daily. Hospi ta (Breo 00 :00 l Ellipta) 200-25 mcg/dose blister with device powder for inhalation levalbutero 2022-0 2023- No 2{puff} Q6H Inhale 2 Methodi l (Xopenex - 05-[address] HFA) 45 00:00: 00:00 every 6 Hospit a mcg/actuati 00 :00 (six) l on inhaler hours as needed for wheezing. fluticasone 2022-0 2023- No QD Inhale 1 M ethodi furoate-ko 12-27-17 inhalation s t anteroL 00:00: 00:00 s daily. Hospi ta (Breo 00 :00 l Ellipta) 200-25 mcg/dose blister with device powder for inhalation levalbutero 3-0 2023- No 2{puff} Q6H Inhale 2 Methodi l (Xopenex 12-27 05-[address] HFA) 45 00:00: 00:00 every 6 Hospit a mcg/actuati 00 :00 (six) l on inhaler hours as needed for wheezing. cyclobenzap 2023-0 2023- No 5mg Q.[id number] Take 1 Methodi rine 2-15 01- [id number] tablet (5 st (FLEXERIL) 00:00: 04:59 3D mg total) H ospita 5 mg tablet 00 :00 by mouth 3 l (three) times a day as needed for muscle spasms for up to 30 days. cyclobenzap 2023-0 2023- No 5mg Q.[id number] Take 1 Methodi rine 2-15 01- [id number] tablet (5 st (FLEXERIL) 00:00: 04:59 3D mg total) H ospita 5 mg tablet 00 :00 by mouth 3 l (three) times a day as needed for muscle spasms for up to 30 days. cyclobenzap 2023-0 2023- No 5mg Q.[id number] Take 1 Methodi rine 2-15 01- [id number] tablet (5 st (FLEXERIL) 00:00: 04:59 3D mg total) H ospita 5 mg tablet 00 :00 by mouth 3 l (three) times a day as needed for muscle spasms for up to 30 days. cyclobenzap 2023-0 2023- No 5mg Q.[id number] Take 1 Methodi rine 2-15 01- [id number] tablet (5 st (FLEXERIL) 00:00: 04:59 3D mg total) H ospita 5 mg tablet 00 :00 by mouth 3 l (three) times a day as needed for muscle spasms for up to 30 days. Ondansetron Ondansetron 3-0 No 1{table Ondansetro HCl 4 MG HCl 4 MG 2-15 t} n HCl 4 MG 00:00: 00 Dicyclomine Dicyclomine 2023-0 No Dicyclomin HCl 10 MG HCl 10 MG 2-15 e HCl 10 00:00: MG 00 Ondansetron Ondansetron 3-0 No 1{table Ondansetro HCl 4 MG HCl 4 MG 2-15 t} n HCl 4 MG 00:00: 00 Dicyclomine Dicyclomine 2023-0 No Dicyclomin HCl 10 MG HCl 10 [...] 2022- No Crestor 40 Methodi n (CRESTOR) 2-03 02-[address] 40 MG 15:53: 00:00 Hospita tablet 32 :00 l rosuvastati 0 2022- No Crestor 40 Methodi n (CRESTOR) 2-03 02-[address] 40 MG 15:53: 00:00 Hospita tablet 32 :00 l rosuvastati 2022-2022- No Crestor 40 Methodi n (CRESTOR) 2-03 02-[address] 40 MG 15:53: 00:00 Hospita tablet 32 :00 l rosuvastati 2022- No Crestor 40 Methodi n (CRESTOR) 11-23-[address] 40 MG 15:53: 00:00 [...] ELLIPTA) 200-62.5-25 mcg blister with device fluticasone 0 Yes QD Inhale 1 Me thodi -umeclidin- 2-[address] vilanter 00:00: s once Hospita (TRELEGY 00 daily. l ELLIPTA) 200-62.5-25 mcg blister with device fluticasone 2022-0 Yes QD Inhale 1 Me thodi -umeclidin- 2-[address] vilanter 00:00: s once Hospita (TRELEGY 00 daily. l ELLIPTA) 200-62.5-25 mcg blister with device fluticasone 2023-0 Yes QD Inhale 1 Me thodi -umeclidin- 2-[address] vilanter 00:00: s once Hospita (TRELEGY 00 daily. l ELLIPTA) 200-62.5-25 mcg blister with device ipratropium 2023-0 2023- No [id number] 3mL Q.25D Take 3 mL Methodi -albuteroL 2 03-05 by ([employer]) 00:00: 05:59 nebulizati H ospita 0.5-2.5 00 :00 on 4 l mg/3 mL (four) nebulizer times a day for 30 days. ipratropium 2023-0 2023- No [id number] 3mL Q.25D Take 3 mL Methodi -albuteroL 212-23 by ([employer]) 00:00: 05:59 nebulizati H ospita 0.5-2.5 00 :00 on 4 l mg/3 mL (four) nebulizer times a day for 30 days. ipratropium 2023-0 2023- No [id number] 3mL Q.25D Take 3 mL Methodi -albuteroL 11-22 by ([employer]) 00:00: 05:59 nebulizati H ospita 0.5-2.5 00 :00 on 4 l mg/3 mL (four) nebulizer times a day for 30 days. ipratropium 2023-0 2023- No [id number] 3mL Q.25D Take 3 mL Methodi -albuteroL 2-11 23- by ([employer]) 00:00: 05:59 nebulizati H ospita 0.5-2.5 00 :00 on 4 l mg/3 mL (four) nebulizer times a day for 30 days. ipratropium 2023-0 2023- No [id number] 3mL Q.25D Take 3 mL Methodi -albuteroL 2-11-22 by ([employer]) 00:00: 00:00 nebulizati H ospita 0.5-2.5 00 :00 on 4 l mg/3 mL (four) nebulizer times a day. ipratropium 2022-0 2022- No [id number] 3mL Q.25D Take 3 mL Methodi -albuteroL 11-[address] ([employer]) 00:00: 00:00 nebulizati H ospita 0.5-2.5 00 :00 on 4 l mg/3 mL (four) nebulizer times a day. ipratropium 2022-0 2022- No [id number] 3mL Q.25D Take 3 mL Methodi -albuteroL 11-[address] ([employer]) 00:00: 00:00 nebulizati H ospita 0.5-2.5 00 :00 on 4 l mg/3 mL (four) nebulizer times a day. ipratropium 2022-0 2022- No [id number] 3mL Q.25D Take 3 mL Methodi -albuteroL 11-[address] ([employer]) 00:00: 00:00 nebulizati H ospita 0.5-2.5 00 :00 on 4 l mg/3 mL (four) nebulizer times a day. traMADoL No 50mg Q4H Take 1 Metho di (ULTRAM) 50 11-13-03 tablet (50 s t mg tablet 00:00: 00:00 mg total) Ho spita 00 :00 by mouth l every 4 (four) hours as needed for moderate pain for up to 20 [place] [id number] 50mg Q4H Take 1 Metho di (ULTRAM) 50 11-13 02-03 tablet (50 s t mg tablet 00:00: 00:00 mg total) Ho spita 00 :00 by mouth l every 4 (four) hours as needed for moderate pain for up to 20 [place] [id number] 50mg Q4H Take 1 Metho di (ULTRAM) 50 11-13-03 tablet (50 s t mg tablet 00:00: 00:00 mg total) Ho spita 00 :00 by mouth l every 4 (four) hours as needed for moderate pain for up to 20 days .acute pain. traMADoL 2022- No [id number] 50mg Q4H Take 1 Metho di (ULTRAM) 50 11-13-03 tablet (50 s t mg tablet 00:00: 00:00 mg total) Ho spita 00 :00 by mouth l every 4 (four) hours as needed for moderate pain for up to 20 days .acute pain. donepeziL 2021-10 Yes Methodi (ARICEPT) 2- st 10 MG 00:00: Hospita tablet 00 l donepeziL 2021-10 Yes [id number] 10mg Take 1 Un oren (ARICEPT) 2-09 tablet by ity o f 10 mg 00:00: mouth at [place] tablet 00 bedtime. Medical Branch donepeziL 2021-10 Yes [id number] 10mg Take 1 Un oren (ARICEPT) 2-09 tablet by ity o f 10 mg 00:00: mouth at [place] tablet 00 bedtime. Medical Branch donepeziL 2021-10 Yes [id number] 10mg Take 1 Un oren (ARICEPT) 2-09 tablet by ity o f 10 mg 00:00: mouth at [place] tablet 00 bedtime. Medical Branch donepeziL 2021-10 Yes [id number] 10mg Take 1 Un oren (ARICEPT) 2-09 tablet by ity o f 10 mg 00:00: mouth at [place] tablet 00 bedtime. Medical Branch donepeziL 2021-10 Yes [id number] 10mg Take 1 Un oren (ARICEPT) 2-09 tablet by ity o f 10 mg 00:00: mouth at [place] tablet 00 bedtime. Medical Branch donepeziL 2021-10 Yes [id number] 10mg Take 1 Un oren (ARICEPT) 2-09 tablet by ity o f 10 mg 00:00: mouth at [place] tablet 00 bedtime. Medical Branch donepeziL 2021-10 Yes [id number] 10mg Take 1 Un oren (ARICEPT) 2-09 tablet by ity o f 10 mg 00:00: mouth at [place] tablet 00 bedtime. Medical Branch donepeziL 2021-10 Yes Methodi (ARICEPT) 2- st 10 MG 00:00: Hospita tablet 00 l donepeziL 2021-10 Yes Methodi (ARICEPT) 2 st 10 MG 00:00: Hospita tablet 00 l donepeziL 2021-10 Yes Methodi (ARICEPT) 2 st 10 MG 00:00: Hospita tablet 00 l donepeziL 5 2021-10 Yes [id number] 5mg Take 1 Univers mg tablet 1-08 tablet by ity o f 00:00: mouth at [place] 00 bedtime. Medical Branch donepeziL 5 2021-10 Yes [id number] 5mg Take 1 Univers mg tablet 1-08 tablet by ity o f 00:00: mouth at [place] 00 bedtime. Medical Branch donepeziL 5 2021-10 Yes [id number] 5mg Take 1 Univers mg tablet 1-08 tablet by ity o f 00:00: mouth at [place] 00 bedtime. Medical Branch donepeziL 5 2021-10- No [id number] 5mg Take 1 Univers mg tablet 10-28- tablet by ity of 00:00: 00:00 mouth at [place] 00 :00 bedtime. Medical Branch donepeziL 5 2021-10- No [id number] 5mg Take 1 Univers mg tablet 10-28- tablet by ity of 00:00: 00:00 mouth at [place] 00 :00 bedtime. Medical Branch donepeziL 5 2021-10- No [id number] 5mg Take 1 Univers mg tablet 10-28- tablet by ity of 00:00: 00:00 mouth at [place] 00 :00 bedtime. Medical Branch rivastigmin Yes [id number] 1{patch Apply 1 Univers e 4.6 mg/24 06-29 } Patch to [place] of [place] patch 00:[place] 00 the [place] morning. Branch rivastigmin Yes [id number] 1{patch Apply 1 Univers e 9.5 mg/24 06-29 } Patch to [place] of hour patch 00:00: [place] 00 the [place] morning. Branch Use this script when the rivastigmi ne 4.6 mg patch is used up. rivastigmin Yes [id number] 1{patch Apply 1 Univers e 4.6 mg/24 06-29 } Patch to [place] of hour patch 00:00[place] 00 the [place] morning. Branch rivastigmin 2021- Yes [id number] 1{patch Apply 1 Univers e 9.5 mg/24 9-09 } Patch to [place] of hour patch 00:00: [place] the morning. Branch Use this script when the rivastigmi ne 4.6 mg patch is used up. rivastigmin 2021- Yes [id number] 1{patch Apply 1 Univers e 4.6 mg/24 9-09 } Patch to [place] of hour patch 00:00: [place] the morning. [place] rivastigmin 2021- Yes [id number] 1{patch Apply 1 Univers e 9.5 mg/24 9-09 } Patch to [place] of hour patch 00:00: [place] the morning. Branch Use this script when the rivastigmi ne 4.6 mg patch is used up. rivastigmin 2021- Yes [id number] 1{patch Apply 1 Univers e 4.6 mg/24 9-09 } Patch to [place] of hour patch 00:00: [place] the morning. [place] rivastigmin 2021- Yes [id number] 1{patch Apply 1 Univers e 9.5 mg/24 9-09 } Patch to [place]y of hour patch 00:00: [place] the morning. Branch Use this script when the rivastigmi ne 4.6 mg patch is used up. rivastigmin 2021- Yes [id number] 1{patch Apply 1 Univers e 4.6 mg/24 9-09 } Patch to [place] of hour patch 00:00: [place] the morning. [place] rivastigmin 2021- Yes [id number] 1{patch Apply 1 Univers e 9.5 mg/24 9-09 } Patch to [place] of hour patch 00:00: [place] 00 the Medical morning. Tony Use this script when the rivastigmi ne 4.6 mg patch is used up. rivastigmin 2021- Yes [id number] 1{patch Apply 1 Univers e 4.6 mg/24 9-09 } Patch to [place] of hour patch 00:00: [place] 00 the Medical morning. [place] rivastigmin 2021- Yes [id number] 1{patch Apply 1 Univers e 9.5 mg/24 06-29 } Patch to [place] of hour patch 00:00: [place] 00 the Medical morning. Branch Use this script when the rivastigmi ne 4.6 mg patch is used up. rivastigmin Yes [id number] 1{patch Apply 1 Univers e 4.6 mg/24 06-29 } Patch to [place] of hour patch 00:00: [place] 00 the Medical morning. [place] rivastigmin Yes [id number] 1{patch Apply 1 Univers e 9.5 mg/24 06-29 } Patch to [place] of hour patch 00:00: [place] 00 the [place] morning. Branch Use this script when the rivastigmi ne 4.6 mg patch is used up. rivastigmin 2021- No [id number] 1{patch Apply 1 Univers e 4.6 mg/24 06-29 } Patch to ity of hour patch 00:00: 00:00 skin in [place] 00 :00 the Medical morning. Tony rivastigmin 2021- No [id number] 1{patch Apply 1 Univers e 9.5 mg/24 06-29 } Patch to ity of hour patch 00:00: 00:00 skin in [place] 00 :00 the Medical morning. Branch Use this script when the rivastigmi ne 4.6 mg patch is used up. rivastigmin 2021- No [id number] 1{patch Apply 1 Univers e 4.6 mg/24 06-29 } Patch to ity of hour patch 00:00: 00:00 skin in [place] 00 :00 the Medical morning. Tony rivastigmin 2021- No [id number] 1{patch Apply 1 Univers e 9.5 mg/24 06-29 } Patch to ity of hour patch 00:00: 00:00 skin in [place] 00 :00 the Medical morning. Branch Use this script when the rivastigmi ne 4.6 mg patch is used up. Zofran 4 MG Zofran 4 MG 2021-0 No BID Zofran 4 8-16 MG 00:00: [...] Zofran 4 8-16 MG 00:00: 00 rivastigmin 2021- No 1{patch Apply 1 Univers [...] 2-28 mg tablet ity o f 10:51: [address] cyclobenza Univers rine 10 mg 2-28 shanell 10 ity o f tablet 10:51: mg tablet [place] 24 Take 1 Medical tablet 3 Branch times a day by oral route as directed for 10 days. diazePAM 2 Yes diazepam 2 U nivers mg tablet 2-28 mg tablet ity o f 10:51: [address] cyclobenza Univers rine 10 mg 2-28 shanell 10 ity o f tablet 10:51: mg tablet [place] 24 Take 1 Medical tablet 3 Branch times a day by oral route as directed for 10 days. diazePAM 2 Yes diazepam 2 U nivers mg tablet 2-28 mg tablet ity o f 10:51: [address] cyclobenza Univers rine 10 mg 2-28 shanell 10 ity o f tablet 10:51: mg tablet [place] 24 Take 1 Medical tablet 3 Branch times a day by oral route as directed for 10 days. diazePAM Yes diazepam 2 U nivers mg tablet 2-28 mg tablet ity o f 10:51: [address] cyclobenza Univers rine 10 mg 2-28 [place] 10 ity o f tablet 10:51: mg tablet [place] 24 Take 1 Medical tablet 3 Branch times a day by oral route as directed for 10 days. diazePAM Yes diazepam 2 U nivers mg tablet 2-28 mg tablet ity o f 10:51: [address] cyclobenza Univers rine 10 mg 2-28 [place] 10 ity o f tablet 10:51: mg tablet [place] 24 Take 1 Medical tablet 3 Branch times a day by oral route as directed for 10 days. diazePAM 2 Yes diazepam 2 U nivers mg tablet 2-28 mg tablet ity o f 10:51: [address] cyclobenzap Yes cyclobenza Univers rine 10 mg 2-28 shanell 10 ity o f tablet 10:51: mg tablet [place] 24 Take 1 Medical tablet 3 Branch times a day by oral route as directed for 10 days. diazePAM 2 Yes diazepam 2 U nivers mg tablet 2-28 mg tablet ity o f 10:51: [address] cyclobenza Univers rine 10 mg 2-28 [place] 10 ity o f tablet 10:51: mg tablet [place] 24 Take 1 Medical tablet 3 Branch times a day by oral route as directed for 10 days. diazePAM 2 Yes diazepam 2 U nivers mg tablet 2-28 mg tablet ity o f 10:51: [address] cyclobenza Univers rine 10 mg 2-28 [place] 10 ity o f tablet 10:51: mg tablet [place] 24 Take 1 Medical tablet 3 Branch times a day by oral route as directed for 10 days. diazePAM Yes diazepam 2 U nivers mg tablet 2-28 mg tablet ity o f 10:51: [address] cyclobenza Univers rine 10 mg 2-28 [place] 10 ity o f tablet 10:51: mg tablet [place] 24 Take 1 Medical tablet 3 Branch times a day by oral route as directed for 10 days. diazePAM Yes diazepam 2 U nivers mg tablet 2-28 mg tablet ity o f 10:51: [address] cyclobenza Univers rine 10 mg 2-28 [place] 10 ity o f tablet 10:51: mg tablet 24 Take 1 Medical tablet 3 Branch times a day by oral route as directed for 10 days. diazePAM Yes diazepam 2 U nivers mg tablet 2-28 mg tablet ity o f 10:51: [address] cyclobenza Univers rine 10 mg 2-28 [place] 10 ity o f tablet 10:51: mg tablet 24 Take 1 Medical tablet 3 Branch times a day by oral route as directed for 10 days. diazePAM 2 Yes diazepam 2 U nivers mg tablet 2-28 mg tablet ity o f 10:51: [address] cyclobenzap Yes cyclobenza Univers rine 10 mg 2-28 [place] 10 ity o f tablet 10:51: mg tablet 24 Take 1 Medical tablet 3 Branch times a day by oral route as directed for 10 days. diazePAM 2 Yes diazepam 2 U nivers mg tablet 2-28 mg tablet ity o f 10:51: [address] cyclobenza Univers rine 10 mg 2-28 [place] 10 ity o f tablet 10:51: mg tablet [place] 24 Take 1 Medical tablet 3 Branch times a day by oral route as directed for 10 days. diazePAM 2 Yes diazepam 2 U nivers mg tablet 2-28 mg tablet ity o f 10:51: [address] cyclobenza Univers rine 10 mg 2-28 [place] 10 ity o f tablet 10:51: mg tablet 24 Take 1 Medical tablet 3 Branch times a day by oral route as directed for 10 days. diazePAM 2 Yes diazepam 2 U nivers mg tablet 2-28 mg tablet ity o f 10:51: [address] cycl[address] Univers rine 10 mg 2-28 [place] 10 ity o f tablet 10:51: mg tablet 24 Take 1 Medical tablet 3 Branch times a day by oral route as directed for 10 days. diazePAM 2 Yes diazepam 2 U nivers mg tablet 2-28 mg tablet ity o f 10:51: [address] cyclobenza Univers rine 10 mg 2-28 [place] 10 ity o f tablet 10:51: mg tablet 24 Take 1 Medical tablet 3 Branch times a day by oral route as directed for 10 days. diazePAM 2 Yes diazepam 2 U nivers mg tablet 2-28 mg tablet ity o f 10:51: [address] [facility] rine 10 mg 2-28 shanell 10 ity o f tablet 10:51: mg tablet 24 Take 1 Medical tablet 3 Branch times a day by oral route as directed for 10 days. diazePAM 2 Yes diazepam 2 U nivers mg tablet 2-28 mg tablet ity o f 10:51: [address] donepeziL 5 2021- No [id number] 5mg Take 1 Univers mg tablet 2-28 - tablet by ity of 00:00: 00:00 mouth at [place] 00 :00 bedtime. Medical When Branch script runs out, call in for another increase. donepeziL 5 2021- No [id number] 5mg Take 1 Univers mg tablet -18 07- tablet by ity of 00:00: 00:00 mouth at [place] 00 :00 bedtime. Medical When Branch script [...] by mouth ity of tablet 00:00: daily. [facility] meloxicam 2020-10 Yes 15mg Take 15 mg Un oren 15 mg 2-28 by mouth ity of tablet 00:00: daily. [facility] meloxicam 2020-10 Yes 15mg Take 15 mg Un oren 15 mg 2-28 by mouth ity of tablet 00:00: daily. [facility] meloxicam 2020-10 Yes 15mg Take 15 mg Un oren 15 mg 2-28 by mouth ity of tablet 00:00: daily. [facility] meloxicam 2020-10 Yes 15mg Take 15 mg Un oren 15 mg 2-28 by mouth ity of tablet 00:00: daily. [facility] meloxicam 2020-10 Yes 15mg Take 15 mg Un oren 15 mg 2-28 by mouth ity of tablet 00:00: daily. [facility] meloxicam 2020-10 Yes 15mg Take 15 mg Un oren 15 mg 2-28 by mouth ity of tablet 00:00: daily. [facility] meloxicam 2020-10 Yes 15mg Take 15 mg Un oren 15 mg 2-28 by mouth ity of tablet 00:00: daily. [facility] meloxicam 2020-10 Yes 15mg Take 15 mg Un oren 15 mg 2-28 by mouth ity of tablet 00:00: daily. [facility] meloxicam 2020-10 Yes 15mg Take 15 mg Un oren 15 mg 2-28 by mouth ity of tablet 00:00: daily. [facility] meloxicam 2020-10 Yes 15mg Take 15 mg Un oren 15 mg 2-28 by mouth ity of tablet 00:00: daily. [facility] meloxicam 2020-10 Yes 15mg Take 15 mg Un oren 15 mg 2-28 by mouth ity of tablet 00:00: daily. [facility] meloxicam 2020-10 Yes 15mg Take 15 mg Un oren 15 mg 2-28 by mouth ity of tablet 00:00: daily. [place] [facility] meloxicam 2020-10 Yes 15mg Take 15 mg Un oren 15 mg 2-28 by mouth ity of tablet 00:00: daily. [place] [facility] meloxicam 2020-10 Yes 15mg Take 15 mg Un oren 15 mg 2-28 by mouth ity of tablet 00:00: daily. [place] [facility] meloxicam 2020-10 Yes 15mg Take 15 mg Un oren 15 mg 2-28 by mouth ity of tablet 00:00: daily. [place] [facility] meloxicam 2020-10 Yes 15mg Take 15 mg Un oren 15 mg 2-28 by mouth ity of tablet 00:00: daily. [place] [facility] meloxicam 2020-10 Yes 15mg Take 15 mg Un oren 15 mg 2-28 by mouth ity of tablet 00:00: daily. [address] solifenacin 2020-10- No [facility] ethodi [...] directed for 10 days. IPRATROPIUM 2020-10 Yes [id number] INHALE 1 Univers 0.02 % 1-13 VIAL(2.5 ity of nebulizer 00:00: ML) VIA [place] solution 00 NEBULIZER Medica l TWICE Branch DAILY NEEDED FOR WHEEZING OR SHORTNESS OF BREATH IPRATROPIUM 2020-10 Yes [id number] INHALE 1 Univers 0.02 % 1-13 VIAL(2.5 ity of nebulizer 00:00: ML) VIA [place] solution 00 NEBULIZER Medica l TWICE Branch DAILY NEEDED FOR WHEEZING OR SHORTNESS OF BREATH IPRATROPIUM 2020-10 Yes [id number] INHALE 1 Univers 0.02 % 1-13 VIAL(2.5 ity of nebulizer 00:00: ML) VIA [place] solution 00 NEBULIZER Medica l TWICE Branch DAILY NEEDED FOR WHEEZING OR SHORTNESS OF BREATH IPRATROPIUM 2020-10 Yes [id number] INHALE 1 Univers 0.02 % 1-13 VIAL(2.5 ity of nebulizer 00:00: ML) VIA [place] solution 00 NEBULIZER Medica l TWICE Branch DAILY NEEDED FOR WHEEZING OR SHORTNESS OF BREATH IPRATROPIUM 2020-10 Yes [id number] INHALE 1 Univers 0.02 % 1-13 VIAL(2.5 ity of nebulizer 00:00: ML) VIA [place] solution 00 NEBULIZER Medica l TWICE Branch DAILY NEEDED FOR WHEEZING OR SHORTNESS OF BREATH IPRATROPIUM 2020-10 Yes [id number] INHALE 1 Univers 0.02 % 1-13 VIAL(2.5 ity of nebulizer 00:00: ML) VIA [place] solution 00 NEBULIZER Medica l TWICE Branch DAILY NEEDED FOR WHEEZING OR SHORTNESS OF BREATH IPRATROPIUM 2020-10 Yes [id number] INHALE 1 Univers 0.02 % 1-13 VIAL(2.5 ity of nebulizer 00:00: ML) VIA [place] solution 00 NEBULIZER Medica l TWICE Branch DAILY NEEDED FOR WHEEZING OR SHORTNESS OF BREATH IPRATROPIUM 2020-10 Yes [id number] INHALE 1 Univers 0.02 % 1-13 VIAL(2.5 ity of nebulizer 00:00: ML) VIA [place] solution 00 NEBULIZER Medica l TWICE Branch DAILY NEEDED FOR WHEEZING OR SHORTNESS OF BREATH IPRATROPIUM 2020-10 Yes [id number] INHALE 1 Univers 0.02 % 1-13 VIAL(2.5 ity of nebulizer 00:00: ML) VIA [place] solution 00 NEBULIZER Medica l TWICE Branch DAILY NEEDED FOR WHEEZING OR SHORTNESS OF BREATH IPRATROPIUM 2020-10 Yes [id number] INHALE 1 Univers 0.02 % 1-13 VIAL(2.5 ity of nebulizer 00:00: ML) VIA [place] solution 00 NEBULIZER Medica l TWICE Branch DAILY NEEDED FOR WHEEZING OR SHORTNESS OF BREATH IPRATROPIUM 2020-10 Yes [id number] INHALE 1 Univers 0.02 % 1-13 VIAL(2.5 ity of nebulizer 00:00: ML) VIA [place] solution 00 NEBULIZER Medica l TWICE Branch DAILY NEEDED FOR WHEEZING OR SHORTNESS OF BREATH IPRATROPIUM 2020-10 Yes [id number] INHALE 1 Univers 0.02 % 1-13 VIAL(2.5 ity of nebulizer 00:00: ML) VIA [place] solution 00 NEBULIZER Medica l TWICE Branch DAILY NEEDED FOR WHEEZING OR SHORTNESS OF BREATH IPRATROPIUM 2020-10 Yes [id number] INHALE 1 Univers 0.02 % 1-13 VIAL(2.5 ity of nebulizer 00:00: ML) VIA [place] solution 00 NEBULIZER Medica l TWICE Branch DAILY NEEDED FOR WHEEZING OR SHORTNESS OF BREATH IPRATROPIUM 2020-10 Yes [id number] INHALE 1 Univers 0.02 % 1-13 VIAL(2.5 ity of nebulizer 00:00: ML) VIA [place] solution 00 NEBULIZER Medica l TWICE Branch DAILY NEEDED FOR WHEEZING OR SHORTNESS OF BREATH IPRATROPIUM 2020-10 Yes [id number] INHALE 1 Univers 0.02 % 1-13 VIAL(2.5 ity of nebulizer 00:00: ML) VIA [place] solution 00 NEBULIZER Medica l TWICE Branch DAILY NEEDED FOR WHEEZING OR SHORTNESS OF BREATH IPRATROPIUM 2020-10 Yes [id number] INHALE 1 Univers 0.02 % 1-13 VIAL(2.5 ity of nebulizer 00:00: ML) VIA [place] solution 00 NEBULIZER Medica l TWICE Branch DAILY NEEDED FOR WHEEZING OR SHORTNESS OF BREATH IPRATROPIUM 2020-10 Yes [id number] INHALE 1 Univers 0.02 % 1-13 VIAL(2.5 ity of nebulizer 00:00: ML) VIA [place] solution 00 NEBULIZER Medica l TWICE Branch DAILY NEEDED FOR WHEEZING OR SHORTNESS OF BREATH IPRATROPIUM 2020-10 Yes [id number] INHALE 1 Univers 0.02 % 1-13 VIAL(2.5 ity of nebulizer 00:00: ML) VIA [place] solution 00 NEBULIZER Medica l TWICE Branch DAILY NEEDED FOR WHEEZING OR SHORTNESS OF BREATH ascorbic 2020-0 Yes 500mg Take 500 Univ ers acid, 3-03 mg by ity of vitamin C, 15:51: mouth. [place] (VITAMIN C) 53 Medical 500 mg Branch [...] by ity of vitamin C, 15:51: mouth. [place] (VITAMIN C) 53 Medical 500 mg Branch [...] by ity of vitamin C, 15:51: mouth. [place] (VITAMIN C) 53 Medical 500 mg Branch [...] by ity of vitamin C, 15:51: mouth. [place] (VITAMIN C) 53 Medical 500 mg Branch [...] by ity of vitamin C, 15:51: mouth. [place] (VITAMIN C) 53 Medical 500 mg Branch [...] by ity of vitamin C, 15:51: mouth. [place] (VITAMIN C) 53 Medical 500 mg Branch [...] by ity of vitamin C, 15:51: mouth. [place] (VITAMIN C) 53 Medical 500 mg Branch [...] by ity of vitamin C, 15:51: mouth. [place] (VITAMIN C) 53 Medical 500 mg Branch [...] by ity of vitamin C, 15:51: mouth. [place] (VITAMIN C) 53 Medical 500 mg Branch [...] by ity of vitamin C, 15:51: mouth. [place] (VITAMIN C) 53 Medical 500 mg Branch [...] by ity of vitamin C, 15:51: mouth. [place] (VITAMIN C) 53 Medical 500 mg Branch [...] by ity of vitamin C, 15:51: mouth. [place] (VITAMIN C) 53 Medical 500 mg Branch [...] by ity of vitamin C, 15:51: mouth. [place] (VITAMIN C) 53 Medical 500 mg Branch [...] by ity of vitamin C, 15:51: mouth. [place] (VITAMIN C) 53 Medical 500 mg Branch [...] by ity of vitamin C, 15:51: mouth. [place] (VITAMIN C) 53 Medical 500 mg Branch [...] by ity of vitamin C, 15:51: mouth. [place] (VITAMIN C) 53 Medical 500 mg Branch [...] by ity of vitamin C, 15:51: mouth. [place] (VITAMIN C) 53 Medical 500 mg Branch [...] by ity of vitamin C, 15:51: mouth. [place] (VITAMIN C) 53 Medical 500 mg Branch [...] by mouth ity of capsule 15:25: daily. [address] Branch predniSONE 0 Yes 10mg Take 10 mg U nivers 10 mg 3-03 by mouth ity of tablet 15:25: as needed [place] [id number] (wheezing) Medical . Branch tiotropium 0 Yes 18ug Inhale 18 Un oren 18 mcg 3-03 mcg daily. ity of inhalation 15:25: [address] Branch omeprazole 0 Yes 40mg Take 40 mg U nivers 40 mg 3-03 by mouth ity of capsule 15:25: daily. [address] predniSONE 2020-0 Yes 10mg Take 10 mg U nivers 10 mg 3-03 by mouth ity of tablet 15:25: as needed [place] [id number] (wheezing) Medical . Branch tiotropium 0 Yes 18ug Inhale 18 Un oren 18 mcg 3-03 mcg daily. ity of inhalation 15:25: [address] omeprazole 0 Yes 40mg Take 40 mg U nivers 40 mg 3-03 by mouth ity of capsule 15:25: daily. [address] predniSONE 0 Yes 10mg Take 10 mg U nivers 10 mg 3-03 by mouth ity of tablet 15:25: as needed [place] [id number] (wheezing) Medical . Branch tiotropium 0 Yes 18ug Inhale 18 Un oren 18 mcg 3-03 mcg daily. ity of inhalation 15:25: [address] omeprazole 0 Yes 40mg Take 40 mg U nivers 40 mg 3-03 by mouth ity of capsule 15:25: daily. [address] predniSONE 2020-0 Yes 10mg Take 10 mg U nivers 10 mg 3-03 by mouth ity of tablet 15:25: as needed [place] [id number] (wheezing) Medical . Branch tiotropium 0 Yes 18ug Inhale 18 Un oren 18 mcg 3-03 mcg daily. ity of inhalation 15:25: [address] Branch omeprazole 2020-0 Yes 40mg Take 40 mg U nivers 40 mg 3-03 by mouth ity of capsule 15:25: daily. [address] predniSONE 2020-0 Yes 10mg Take 10 mg U nivers 10 mg 3-03 by mouth ity of tablet 15:25: as needed [place] [id number] (wheezing) Medical . Branch tiotropium 0 Yes 18ug Inhale 18 Un oren 18 mcg 3-03 mcg daily. ity of inhalation 15:25: [address] Branch omeprazole 0 Yes 40mg Take 40 mg U nivers 40 mg 3-03 by mouth ity of capsule 15:25: daily. [address] predniSONE 0 Yes 10mg Take 10 mg U nivers 10 mg 3-03 by mouth ity of tablet 15:25: as needed [place] [id number] (wheezing) Medical . Branch tiotropium Yes 18ug Inhale 18 Un oren 18 mcg 3-03 mcg daily. ity of inhalation 15:25: [address] omeprazole 0 Yes 40mg Take 40 mg U nivers 40 mg 3-03 by mouth ity of capsule 15:25: daily. [address] predniSONE 0 Yes 10mg Take 10 mg U nivers 10 mg 3-03 by mouth ity of tablet 15:25: as needed [place] [id number] (wheezing) Medical . Branch tiotropium Yes 18ug Inhale 18 Un oren 18 mcg 3-03 mcg daily. ity of inhalation 15:25: [address] omeprazole 0 Yes 40mg Take 40 mg U nivers 40 mg 3-03 by mouth ity of capsule 15:25: daily. [address] predniSONE 0 Yes 10mg Take 10 mg U nivers 10 mg 3-03 by mouth ity of tablet 15:25: as needed [place] [id number] (wheezing) Medical . Branch tiotropium Yes 18ug Inhale 18 Un oren 18 mcg 3-03 mcg daily. ity of inhalation 15:25: [address] omeprazole 2020-0 Yes 40mg Take 40 mg U nivers 40 mg 3-03 by mouth ity of capsule 15:25: daily. [address] predniSONE 2020-0 Yes 10mg Take 10 mg U nivers 10 mg 3-03 by mouth ity of tablet 15:25: as needed [place] [id number] (wheezing) Medical . Branch tiotropium 0 Yes 18ug Inhale 18 Un oren 18 mcg 3-03 mcg daily. ity of inhalation 15:25: [address] omeprazole 2020-0 Yes 40mg Take 40 mg U nivers 40 mg 3-03 by mouth ity of capsule 15:25: daily. [address] predniSONE 0 Yes 10mg Take 10 mg U nivers 10 mg 3-03 by mouth ity of tablet 15:25: as needed [place] [id number] (wheezing) Medical . Branch tiotropium 0 Yes 18ug Inhale 18 Un oren 18 mcg 3-03 mcg daily. ity of inhalation 15:25: [address] Branch omeprazole Yes 40mg Take 40 mg U nivers 40 mg 3-03 by mouth ity of capsule 15:25: daily. [address] predniSONE 2020-0 Yes 10mg Take 10 mg U nivers 10 mg 3-03 by mouth ity of tablet 15:25: as needed [place] [id number] (wheezing) Medical . Branch tiotropium Yes 18ug Inhale 18 Un oren 18 mcg 3-03 mcg daily. ity of inhalation 15:25: [address] omeprazole Yes 40mg Take 40 mg U nivers 40 mg 3-03 by mouth ity of capsule 15:25: daily. [address] predniSONE 0 Yes 10mg Take 10 mg U nivers 10 mg 3-03 by mouth ity of tablet 15:25: as needed [place] [id number] (wheezing) Medical . Branch tiotropium Yes 18ug Inhale 18 Un oren 18 mcg 3-03 mcg daily. ity of inhalation 15:25: [address] omeprazole 0 Yes 40mg Take 40 mg U nivers 40 mg 3-03 by mouth ity of capsule 15:25: daily. [address] predniSONE 0 Yes 10mg Take 10 mg U nivers 10 mg 3-03 by mouth ity of tablet 15:25: as needed [place] [id number] (wheezing) Medical . Branch tiotropium 0 Yes 18ug Inhale 18 Un oren 18 mcg 3-03 mcg daily. ity of inhalation 15:25: [address] Branch omeprazole 2020-0 Yes 40mg Take 40 mg U nivers 40 mg 3-03 by mouth ity of capsule 15:25: daily. [address] predniSONE 0 Yes 10mg Take 10 mg U nivers 10 mg 3-03 by mouth ity of tablet 15:25: as needed [place] [id number] (wheezing) Medical . Branch tiotropium 0 Yes 18ug Inhale 18 Un oren 18 mcg 3-03 mcg daily. ity of inhalation 15:25: [place] [address] Medical Branch omeprazole Yes 40mg Take 40 mg U nivers 40 mg 3-03 by mouth ity of capsule 15:25: daily. [place] [id number] Medical Branch predniSONE Yes 10mg Take 10 mg U nivers 10 mg 3-03 by mouth ity of tablet 15:25: as needed [place] [id number] (wheezing) Medical . Branch tiotropium Yes 18ug Inhale 18 Un oren 18 mcg 3-03 mcg daily. ity of inhalation 15:25: [place] [address] Medical Branch omeprazole Yes 40mg Take 40 mg U nivers 40 mg 3-03 by mouth ity of capsule 15:25: daily. [place] [address] Medical Branch predniSONE Yes 10mg Take 10 mg U nivers 10 mg 3-03 by mouth ity of tablet 15:25: as needed [place] [id number] (wheezing) Medical . Branch tiotropium Yes 18ug Inhale 18 Un oren 18 mcg 3-03 mcg daily. ity of inhalation 15:25: [place] [address] Medical Branch omeprazole Yes 40mg Take 40 mg U nivers 40 mg 3-03 by mouth ity of capsule 15:25: daily. [address] predniSONE Yes 10mg Take 10 mg U nivers 10 mg 3-03 by mouth ity of tablet 15:25: as needed [place] [id number] (wheezing) Medical . Branch tiotropium Yes 18ug Inhale 18 Un oren 18 mcg 3-03 mcg daily. ity of inhalation 15:25: [place] [address] Medical Branch ergocalcife 2020-0 Yes [id number] Take 1 Univers rol, 8-17 capsule by ity of vitamin d2, 00:00: mouth [place] (VITAMIN 00 weekly. Medical D2) 1,250 Branch mcg (50,000 unit) capsule ergocalcife 2020-0 Yes [id number] Take 1 Univers rol, 8-17 capsule by ity of vitamin d2, 00:00: mouth [place] (VITAMIN 00 weekly. Medical D2) 1,250 Branch mcg (50,000 unit) capsule ergocalcife 2020-0 Yes [id number] Take 1 Univers rol, 8-17 capsule by ity of vitamin d2, 00:00: mouth [place] (VITAMIN 00 weekly. Medical D2) 1,250 Branch mcg (50,000 unit) capsule ergocalcife 2020-0 Yes [id number] Take 1 Univers rol, 8-17 capsule by ity of vitamin d2, 00:00: mouth [place] (VITAMIN 00 weekly. Medical D2) 1,250 Branch mcg (50,000 unit) capsule ergocalcife 2020-0 Yes [id number] Take 1 Univers rol, 8-17 capsule by ity of vitamin d2, 00:00: mouth [place] (VITAMIN 00 weekly. Medical D2) 1,250 Branch mcg (50,000 unit) capsule ergocalcife 2020-0 Yes [id number] Take 1 Univers rol, 8-17 capsule by ity of vitamin d2, 00:00: mouth [place] (VITAMIN 00 weekly. Medical D2) 1,250 Branch mcg (50,000 unit) capsule ergocalcife 2020-0 Yes [id number] Take 1 Univers rol, 8-17 capsule by ity of vitamin d2, 00:00: mouth [place] (VITAMIN 00 weekly. Medical D2) 1,250 Branch mcg (50,000 unit) capsule ergocalcife 2020-0 Yes [id number] Take 1 Univers rol, 8-17 capsule by ity of vitamin d2, 00:00: mouth [place] (VITAMIN 00 weekly. Medical D2) 1,250 Branch mcg (50,000 unit) capsule ergocalcife 2020-0 Yes [id number] Take 1 Univers rol, 8-17 capsule by ity of vitamin d2, 00:00: mouth [place] (VITAMIN 00 weekly. Medical D2) 1,250 Branch mcg (50,000 unit) capsule ergocalcife 2020-0 Yes [id number] Take 1 Univers rol, 8-17 capsule by ity of vitamin d2, 00:00: mouth [place] (VITAMIN 00 weekly. Medical D2) 1,250 Branch mcg (50,000 unit) capsule ergocalcife 2020-0 Yes [id number] Take 1 Univers rol, 8-17 capsule by ity of vitamin d2, 00:00: mouth [place] (VITAMIN 00 weekly. Medical D2) 1,250 Branch mcg (50,000 unit) capsule ergocalcife 2020-0 Yes [id number] Take 1 Univers rol, 8-17 capsule by ity of vitamin d2, 00:00: mouth [place] (VITAMIN 00 weekly. Medical D2) 1,250 Branch mcg (50,000 unit) capsule ergocalcife 2020-0 Yes [id number] Take 1 Univers rol, 8-17 capsule by ity of vitamin d2, 00:00: mouth [place] (VITAMIN 00 weekly. Medical D2) 1,250 Branch mcg (50,000 unit) capsule ergocalcife 2020-0 Yes [id number] Take 1 Univers rol, 8-17 capsule by ity of vitamin d2, 00:00: mouth [place] (VITAMIN 00 weekly. Medical D2) 1,250 Branch mcg (50,000 unit) capsule ergocalcife 2020-0 Yes [id number] Take 1 Univers rol, 8-17 capsule by ity of vitamin d2, 00:00: mouth [place] (VITAMIN 00 weekly. Medical D2) 1,250 Branch mcg (50,000 unit) capsule ergocalcife 2020-0 Yes [id number] Take 1 Univers rol, 8-17 capsule by ity of vitamin d2, 00:00: mouth [place] (VITAMIN 00 weekly. Medical D2) 1,250 Branch mcg (50,000 unit) capsule ergocalcife 2020-0 Yes [id number] Take 1 Univers rol, 8-17 capsule by ity of vitamin d2, 00:00: mouth [place] (VITAMIN 00 weekly. Medical D2) 1,250 Branch mcg (50,000 unit) capsule ergocalcife 2020-0 Yes [id number] Take 1 Univers rol, 8-17 capsule by ity of vitamin d2, 00:00: mouth [place] (VITAMIN 00 weekly. Medical D2) 1,250 Branch mcg (50,000 unit) capsule Omeprazole Omeprazole 2019-0 Yes Tom 1 capsule Common 8-16 [facility] 00:00: - [facility] 00 [facility] Omeprazole Omeprazole 2019-0 No 1{capsu BID [...] 8-16 le} 40 MG 00:00: 00 rosuvastati 2019-0 Yes Crestor 40 Methodi n (CRESTOR) 2-[address] 40 MG 16:34: [facility] tablet 22 l albuterol 2019- Yes ProAir HFA [facility] (PROAIR 2- 90 st HFA,PROVENT 16:34: mcg/actuat [facility] [place] 22 ion l HFA,VENTOLI aerosol N HFA) 90 inhaler mcg/actuati on inhaler rosuvastati 2019 Yes Crestor 40 Methodi n (CRESTOR) 2-[address] 40 MG 16:34: [facility]ospita tablet 22 l albuterol 2019-0 Yes ProAir HFA [facility] (PROAIR 2-[address] HFA,PROVENT 16:34: mcg/actuat [facility] [place] 22 ion l HFA,VENTOLI aerosol N HFA) 90 inhaler mcg/actuati on inhaler Rosuvastati Rosuvastati Yes Tom 1 tablet Common n Calcium n Calcium [facility] PredniSONE PredniSONE Yes Tom 1 tablet Common [facility] Vitamin B12 Vitamin B12 No Vitamin B12 [...] Zinc No Zinc Probiotic Probiotic No Probiotic 1250 1-250 1-250 BILLION-MG BILLION-MG BILLION-MG Neuriva Neuriva [...] No Zinc Probiotic Probiotic No Probiotic 250 250 1-250 [...] Probiotic 250 250 1-250 BILLION-MG BILLION-MG BILLION-MG predniSONE predniSONE [...] B12 Probiotic Probiotic No Probiotic 250 1250 BILLION-MG BILLION-MG BILLION-MG Zinc Zinc [...] B12 Probiotic Probiotic No Probiotic 250 1250 BILLION-MG BILLION-MG BILLION-MG Zinc Zinc [...] MG 40 MG Probiotic Probiotic No Probiotic 1250 1-250 1-250 BILLION-MG BILLION-MG BILLION-MG Neuriva Neuriva [...] No Vitamin B12 Probiotic Probiotic No Probiotic 1250 250 BILLION-MG BILLION-MG BILLION-MG Zinc Zinc No [...] MG Probiotic Probiotic No Probiotic 250 1250 BILLION-MG BILLION-MG BILLION-MG predniSONE predniSONE No 1{table [...] Probiotic 250 250 1-250 BILLION-MG BILLION-MG BILLION-MG Probiotic Probiotic No [...] Completed Unive rsity of 00:00:00 [place] [facility] Influenza High Dose 2020-06-26 Completed Unive rsity of 00:00:00 [place] [facility] Influenza High Dose 2020-06-26 Completed Unive rsity of 00:00:00 [place] [facility] Influenza High Dose 2020-06-26 Completed Unive rsity of 00:00:00 [place] [facility] Influenza High Dose 2020-06-26 Completed Unive rsity of 00:00:00 [place] [facility] Influenza High Dose 2020-06-26 Completed Unive rsity of 00:00:00 [place] [facility] Influenza High Dose 2020-06-26 Completed Unive rsity of 00:00:00 [place] [facility] Influenza High Dose 2020-06-26 Completed Unive rsity of 00:00:00 [place] [facility] Influenza High Dose 2020-06-26 Completed Unive rsity of 00:00:00 [place] [facility] Influenza High Dose 2020-06-26 Completed Unive rsity of 00:00:00 [place] [facility] Influenza High Dose 2020-06-26 Completed Unive rsity of 00:00:00 [place] [facility] Influenza High Dose 2020-06-26 Completed Unive rsity of 00:00:00 [place] [facility] Influenza High Dose 2020-06-26 Completed Unive rsity of 00:00:00 [place] [facility] Influenza High Dose 2020-06-26 Completed Unive rsity of 00:00:00 [place] [facility] Influenza High Dose 2020-06-26 Completed Unive rsity of 00:00:00 [place] [facility] Influenza High Dose 2020-06-26 Completed Unive rsity of 00:00:00 [place] [facility] Influenza High Dose 2020-06-26 Completed Unive rsity of 00:00:00 [place] [facility] Influenza High Dose 2020-06-26 Completed Unive rsity of 00:00:00 [place] [facility] Influenza High Dose 2019-06-26 Completed Unive rsity of 00:00:00 [place] [facility] Influenza High Dose 2019-06-26 Completed Unive rsity of 00:00:00 [place] [facility] Influenza High Dose 2019-06-26 Completed Unive rsity of 00:00:00 [place] [facility] Influenza High Dose 2019-06-26 Completed Unive rsity of 00:00:00 [place] [facility] Influenza High Dose 2019-06-26 Completed Unive rsity of 00:00:00 [place] [facility] Influenza High Dose 2019-06-26 Completed Unive rsity of 00:00:00 [place] [facility] Influenza High Dose 2019-06-26 Completed Unive rsity of 00:00:00 [place] [facility] Influenza High Dose 2019-06-26 Completed Unive rsity of 00:00:00 [place] [facility] Influenza High Dose 2019-06-26 Completed Unive rsity of 00:00:00 [facility] Influenza High Dose 2019-06-26 Completed Unive rsity of 00:00:00 [facility] Influenza High Dose 2019-06-26 Completed Unive rsity of 00:00:00 [facility] Influenza High Dose 2019-06-26 Completed Unive rsity of 00:00:00 [facility] Influenza High Dose 2019-06-26 Completed Unive rsity of 00:00:00 [facility] Influenza High Dose 2019-06-26 Completed Unive rsity of 00:00:00 [facility] Influenza High Dose 2019-06-26 Completed Unive rsity of 00:00:00 [facility] Influenza High Dose 2019-06-26 Completed Unive rsity of 00:00:00 [facility] Influenza High Dose 2019-06-26 Completed Unive rsity of 00:00:00 [facility] Influenza High Dose 2019-06-26 Completed Unive rsity of 00:00:00 [facility] Influenza High Dose 2018-06-26 Completed Unive rsity of 00:00:00 [facility] Influenza High Dose 2018-06-26 Completed Unive rsity of 00:00:00 [facility] Influenza High Dose 2018-06-26 Completed Unive rsity of 00:00:00 [facility] Influenza High Dose 2018-06-26 Completed Unive rsity of 00:00:00 [facility] Influenza High Dose 2018-06-26 Completed Unive rsity of 00:00:00 [facility] [place] Influenza High Dose 2018-06-26 Completed Unive rsity of 00:00:00 [facility] Influenza High Dose 2018-06-26 Completed Unive rsity of 00:00:00 [facility] Influenza High Dose 2018-06-26 Completed Unive rsity of 00:00:00 [facility] Influenza High Dose 2018-06-26 Completed Unive rsity of 00:00:00 [facility] Influenza High Dose 2018-06-26 Completed Unive rsity of 00:00:00 [facility] Influenza High Dose 2018-06-26 Completed Unive rsity of 00:00:00 [facility] Influenza High Dose 2018-06-26 Completed Unive rsity of 00:00:00 [facility] Influenza High Dose 2018-06-26 Completed Unive rsity of 00:00:00 [facility] Influenza High Dose 2018-06-26 Completed Unive rsity of 00:00:00 [facility] Influenza High Dose 2018-06-26 Completed Unive rsity of 00:00:00 [facility] Influenza High Dose 2018-06-26 Completed Unive rsity of 00:00:00 [facility] Influenza High Dose 2018-06-26 Completed Unive rsity of 00:00:00 [facility] Influenza High Dose 2018-06-26 Completed Unive rsity of 00:00:00 [facility] FLUZONE HIGH DOSE FLUZONE HIGH DOSE Unknown Completed [facility] OVER [facility] OVER 65 [facility] FLUZONE HIGH DOSE FLUZONE HIGH DOSE Unknown Completed [facility] - OVER 65 OVER 65 [facility] FLUZONE HIGH DOSE FLUZONE HIGH DOSE Unknown Completed [facility] - OVER 65 OVER 65 [facility] Vital Signs Vital Name Observation Time Observation Value Comments Source Systolic blood 2023-05-07 19:11:00 131 mm[Hg] Univer sity of pressure [facility] Diastolic blood 2023-05-07 19:11:00 76 mm[Hg] Unive rsity of pressure [facility] Heart rate 2023-05-07 19:11:00 84 /min Universi ty of [facility] Body height 2023-05-07 19:11:00 165.1 cm Universi ty of [facility] Body weight 2023-05-07 19:11:00 55.656 kg Universi ty of [facility] BMI 2023-05-07 19:11:00 20.42 kg/m2 Universi ty of [facility] Systolic blood 2023-04-25 16:56:00 106 mm[Hg] Univer sity of pressure [facility] Diastolic blood 2023-04-25 16:56:00 62 mm[Hg] Unive rsity of [facility] Heart rate 2023-04-25 16:56:00 87 /min Universi ty of [facility] Body temperature 2023-04-25 16:56:00 36.5 [facility] 2023-04-25 16:56:00 18 /min [facility] Body height 2023-04-25 16:56:00 165.1 cm Universi ty [facility] Body weight 2023-04-25 16:56:00 55.203 kg Universi ty [facility] BMI 2023-04-25 16:56:00 20.25 kg/m2 Universi ty [facility] Oxygen saturation in 2023-04-25 16:56:00 94 /min [facility] Arterial blood by [facility] Pulse oximetry Branch height 2022-12-18 11:10:00 62.5 [in_i] Common [facility] weight 2022-12-18 11:10:00 126.3 [lb_av] Common [facility] temperature 2022-12-18 11:10:00 97.3 [degF] Common [facility] bmi 2022-12-18 11:10:00 22.73 kg/m2 Common [facility] oximetry 2022-12-18 11:10:00 93 % [facility] respiratory rate 2022-12-18 11:10:00 16 /min Comm on [facility] blood pressure 2022-12-18 11:10:00 132 mm[Hg] Common [facility] systolic [facility] blood pressure 2022-12-18 11:10:00 72 mm[Hg] Common [facility] - diastolic [facility] height 2022-12-05 16:00:00 62.5 [in_i] Common [facility] weight 2022-12-05 16:00:00 129.5 [lb_av] Common [facility] - [facility] temperature 2022-12-05 16:00:00 97.0 [degF] Common [facility] bmi 2022-12-05 16:00:00 23.31 kg/m2 Common [facility] oximetry 2022-12-05 16:00:00 95 % [facility] respiratory rate 2022-12-05 16:00:00 16 /min Comm on [facility] blood pressure 2022-12-05 16:00:00 138 mm[Hg] Common [facility] - systolic [facility] blood pressure 2022-12-05 16:00:00 80 mm[Hg] Common [facility] - diastolic [facility] Systolic blood 2022-10-31 19:55:00 128 mm[Hg] Univer sity of [facility] Diastolic blood 2022-10-31 19:55:00 78 mm[Hg] Unive rsity of [facility] Heart rate 2022-10-31 19:55:00 73 /min Universi ty [facility] Respiratory rate 2022-10-31 19:55:00 16 /min Univ ersity of [facility] Body weight 2022-10-31 19:55:00 58.514 kg Universi ty [facility] BMI 2022-10-31 19:55:00 22.14 kg/m2 [facility] Oxygen saturation in 2022-10-31 19:55:00 95 /min University Arterial blood by [facility] Pulse oximetry Branch Systolic blood 2022-09-28 15:52:00 148 mm[Hg] Univer sity of [facility] Diastolic blood 2022-09-28 15:52:00 83 mm[Hg] Unive rsity of [facility] Heart rate 2022-09-28 15:52:00 78 /min [facility] Body height 2022-09-28 15:52:00 162.6 cm Universi ty [facility] Body weight 2022-09-28 15:52:00 58.968 kg [facility] BMI 2022-09-28 15:52:00 22.31 kg/m2 [facility] Systolic blood 2022-08-28 21:49:00 134 mm[Hg] Univer sity of pressure [facility] Diastolic blood 2022-08-28 21:49:00 81 mm[Hg] Unive rsity of pressure [facility] Heart rate 2022-08-28 21:49:00 79 /min [facility]i [facility] Body height 2022-08-28 21:49:00 162.6 cm [facility] Body weight 2022-08-28 21:49:00 58.06 kg [facility] BMI 2022-08-28 21:49:00 21.97 kg/m2 [facility] Oxygen saturation in 2022-08-28 21:49:00 95 /min University of Arterial blood by [place] [employer] judi Pulse oximetry Branch Systolic blood 2022-07-18 16:08:00 133 mm[Hg] Univer sity of pressure [facility] Diastolic blood 2022-07-18 16:08:00 81 mm[Hg] Unive rsity of pressure [facility] Heart rate 2022-07-18 16:08:00 72 /min [facility] Respiratory rate 2022-07-18 16:08:00 19 /min Univ ersity of [facility] Body height 2022-07-18 16:08:00 165.1 cm [facility] Body weight 2022-07-18 16:08:00 59.829 kg [facility] BMI 2022-07-18 16:08:00 21.95 kg/m2 [facility] Oxygen saturation in 2022-07-18 16:08:00 98 /min [facility] of Arterial blood by [employer] judi Pulse oximetry Branch Systolic blood 2022-06-29 19:34:00 134 mm[Hg] Univer sity of pressure [facility] Diastolic blood 2022-06-29 19:34:00 76 mm[Hg] Unive rsity of pressure [facility] Heart rate 2022-06-29 19:34:00 72 /min Universi ty of [facility] Body height 2022-06-29 19:34:00 165.1 cm Universi ty [facility] Body weight 2022-06-29 19:34:00 60.782 kg Universi ty [facility] BMI 2022-06-29 19:34:00 22.30 kg/m2 Universi [facility] Oxygen saturation in 2022-06-29 19:34:00 96 /min [facility] Arterial blood by [facility] Pulse oximetry Branch height 2022-06-20 13:10:00 62.5 [in_i] [facility] weight 2022-06-20 13:10:00 132 [lb_av] [facility] temperature 2022-06-20 13:10:00 97.9 [degF] [facility] bmi 2022-06-20 13:10:00 23.76 kg/m2 [facility] oximetry 2022-06-20 13:10:00 95 % [facility] respiratory rate 2022-06-20 13:10:00 17 /min Comm on [facility] blood pressure 2022-06-20 13:10:00 136 mm[Hg] Common [facility] - systolic [facility] blood pressure 2022-06-20 13:10:00 80 mm[Hg] [facility] diastolic [facility] height 2022-06-05 09:00:00 65.0 [in_i] Common [facility] weight 2022-06-05 09:00:00 131 [lb_av] [facility] bmi 2022-06-05 09:00:00 21.8 kg/m2 [facility] height 2022-05-16 14:20:00 65.0 [in_i] [facility] weight 2022-05-16 14:20:00 131 [lb_av] [facility] temperature 2022-05-16 14:20:00 97.6 [degF] [facility] bmi 2022-05-16 14:20:00 21.8 kg/m2 [facility] oximetry 2022-05-16 14:20:00 94 % [facility] respiratory rate 2022-05-16 14:20:00 16 /min Comm on [facility] blood pressure 2022-05-16 14:20:00 133 mm[Hg] Common [facility] - systolic [facility] blood pressure 2022-05-16 14:20:00 64 mm[Hg] Common [facility] - diastolic [facility] height 2022-05-16 14:30:00 65.0 [in_i] [facility] weight 2022-05-16 14:30:00 131 [lb_av] [facility] temperature 2022-05-16 14:30:00 97.6 [degF] [facility] bmi 2022-05-16 14:30:00 21.8 kg/m2 [facility] oximetry 2022-05-16 14:30:00 94 % [facility] respiratory rate 2022-05-16 14:30:00 16 /min Comm on [facility] blood pressure 2022-05-16 14:30:00 133 mm[Hg] Common [facility] - systolic [facility] blood pressure 2022-05-16 14:30:00 64 mm[Hg] Common [facility] - diastolic [facility] Systolic blood 2023-07-10 15:40:00 139 mm[Hg] [facility] pressure Diastolic blood 2023-07-10 15:40:00 65 mm[Hg] [facility] pressure Heart rate 2023-07-10 15:40:00 68 /min [facility] Body temperature 2023-07-10 15:40:00 36.44 [facility] 2023-07-10 15:40:00 14 /min [facility] Body height 2023-07-10 15:40:00 162.6 cm [facility] Body weight 2023-07-10 15:40:00 55.157 kg [facility] BMI 2023-07-10 15:40:00 20.87 kg/m2 [facility] Oxygen saturation in 2023-07-10 15:40:00 97 /min [facility] Arterial blood by Pulse oximetry Heart rate 2023-04-12 21:30:00 80 /min [facility] Respiratory rate 2023-04-12 21:30:00 16 /min [facility] Oxygen saturation in 2023-04-12 21:30:00 93 /min [facility] Arterial blood by Pulse oximetry Systolic blood 2023-04-12 21:20:00 131 mm[Hg] [facility] pressure Diastolic blood 2023-04-12 21:20:00 65 mm[Hg] [facility] pressure Body temperature 2023-04-12 16:35:00 36.22 Mari [facility] Body height 2023-04-12 16:35:00 162.6 cm [facility] Body weight 2023-04-12 16:35:00 55.339 kg [facility] BMI 2023-04-12 16:35:00 20.94 kg/m2 [facility] Systolic blood 2023-02-26 16:07:00 148 mm[Hg] [facility] pressure Diastolic blood 2023-02-26 16:07:00 65 mm[Hg] [facility] pressure Heart rate 2023-02-26 16:07:00 81 /min [facility] Body temperature 2023-02-26 16:07:00 37 Mari [facility] Respiratory rate 2023-02-26 16:07:00 14 /min [facility] Body height 2023-02-26 16:07:00 165.1 cm [facility] Body weight 2023-02-26 16:07:00 56.337 kg [facility] BMI 2023-02-26 16:07:00 20.67 kg/m2 [facility] Oxygen saturation in 2023-02-26 16:07:00 96 /min [facility] Arterial blood by Pulse oximetry Body height 2021-10-25 17:49:00 165.1 cm [facility] Body weight 2021-10-25 17:49:00 61.236 kg [facility] BMI 2021-10-25 17:49:00 22.47 kg/m2 [facility] Procedures Procedure Date / Time Performing Clinician Source Performed MRI THORACIC SPINE WO 2023-05-29 23:59:34 Scott Partida [facility] CONTRAST XR LUMBAR SPINE 2 OR 3 VW 2023-05-28 15:51:29 Scott Partida [facility] POCT MOLECULAR STREP 2023-04-25 17:01:00 Unknown, Attending [facility] SURGICAL PATHOLOGY 2023-04-12 20:20:00 Harsh Lomeli [facility] REQUEST IR NEEDLE BIOPSY 2023-04-12 19:41:11 Harsh Lomeli [facility] IR EPIDURAL INJECTION 2023-04-12 19:41:11 Harsh Lomeli [facility] LUMBAR IR KYPHOPLASTY [facility] VERT 2023-04-12 19:41:11 Harsh Lomeli [facility] BODY LUMBA ECG 12-LEAD 2023-04-12 17:26:25 [facility] CBC WITH PLATELET AND 2023-04-09 17:51:00 Harsh Lomeli [facility] DIFFERENTIAL COMPREHENSIVE METABOLIC 2023-04-09 17:51:00 Harsh Lomeli [facility] PANEL PROTHROMBIN TIME WITH INR 2023-04-09 17:51:00 Harsh Lomeli [facility] PARTIAL THROMBOPLASTIN 2023-04-09 17:51:00 Harsh Lomeli [facility] TIME (PTT) MRI LUMBAR SPINE WO 2023-03-12 20:08:00 Harsh Lomeli [facility] CONTRAST XR CHEST 2 VW 2022-11-22 20:09:34 Chuck Watts [facility] PULMONARY FUNCTION TEST 2022-11-22 18:34:09 Chuck Watts [facility] IR KYPHOPLASTY [facility] 2022-10-05 16:11:31 Harsh Lomeli [facility] BODY LUMBA COVID-19 QUALITATIVE 2022-10-03 [facility] CBC WITH PLATELET AND 2022-10-03 18:30:00 ManuelLily victoria [facility] DIFFERENTIAL BASIC METABOLIC PANEL 2022-10-03 18:30:00 [facility] PROTHROMBIN TIME WITH INR 2022-10-03 18:30:00 [facility] ESTIMATED GFR 2022-10-03 18:30:00 [facility] CONSENT/REFUSAL FOR 2022-09-28 15:43:17 Doctor Unassigned, [facility] DIAGNOSIS AND TREATMENT [facility] MRI LUMBAR SPINE WO 2022-09-18 19:15:58 Harsh Lomeli [facility] CONTRAST SLEEP STUDY DATA REPORT 2022-07-26 05:01:00 Doctor Unassigned, [facility] FLU 2022-07-18 16:06:31 Reed Almendarez [facility] VACC(),65+YR,0.5 Medica l Branch ML,IM,ADJUVANTED,QUAD(FLU AD) XR SHOULDER 2+ VW RIGHT 2021-10-25 17:49:05 Ariana Perez [facility] [place] ARTHROCENTESIS 2021-10-25 17:00:00 Chris [facility] ASPIR&/INJ MAJOR JT/BURSA W/O US MRI LUMBAR SPINE WO 2021-10-06 18:10:45 Harsh Lomeli [facility] CONTRAST MRI THORACIC SPINE WO 2021-10-06 17:55:34 Harsh Lomeli [facility] CONTRAST Plan of Care Planned Activity Planned Date Details Comments Source Future Scheduled 2023-08-14 Hepatitis C screening [facility] Test 11:10:10 (procedure) [code = 781564953] Future Scheduled 2023-08-14 SHINGLES VACCINES (1 Met [facility] Test 11:10:10 of 2) [code = SHINGLES VACCINES (1 of 2)] Future Scheduled 2023-08-14 65+ PNEUMOCOCCAL [facility] Test 11:10:10 VACCINE (2 - PCV) [code = 65+ PNEUMOCOCCAL VACCINE (2 - PCV)] Future Scheduled 2023-08-14 COVID-19 VACCINE (2 - [facility] Test 11:10:10 season) [code = COVID-19 VACCINE (2 - season)] Future Scheduled 2023-08-14 INFLUENZA VACCINE (#1) [facility] Test 11:10:10 [code = INFLUENZA VACCINE (#1)] Future Scheduled 2023-08-14 Hepatitis C screening [facility] Test 11:10:10 (procedure) [code = 572907390] Future Scheduled 2023-08-14 SHINGLES VACCINES (1 Met [facility] Test 11:10:10 of 2) [code = SHINGLES VACCINES (1 of 2)] Future Scheduled 2023-08-14 65+ PNEUMOCOCCAL [facility] Test 11:10:10 VACCINE (2 - PCV) [code = 65+ PNEUMOCOCCAL VACCINE (2 - PCV)] Future Scheduled 2023-08-14 COVID-19 VACCINE (2 - [facility] Test 11:10:10 season) [code = COVID-19 VACCINE (2 - season)] Future Scheduled 2023-08-14 INFLUENZA VACCINE (#1) [facility] Test 11:10:10 [code = INFLUENZA VACCINE (#1)] Future Scheduled 2023-04-12 Screening for [facility] Test 13:53:59 malignant neoplasm of colon (procedure) [code = 402948878] Future Scheduled 2023-04-12 Screening for [facility] Test 13:53:59 malignant neoplasm of colon (procedure) [code = 306323365] Future Scheduled 2023-04-12 SHINGLES VACCINES (1 Met [facility] Test 13:53:59 of 2) [code = SHINGLES VACCINES (1 of 2)] Future Scheduled 2023-04-12 COVID-19 VACCINE (2 - [facility] Test 13:53:59 Booster for Joe series) [code = COVID-19 VACCINE (2 - Booster for Joe series)] Future Scheduled 2023-04-12 65+ PNEUMOCOCCAL [facility] Test 13:53:59 VACCINE (2 - PCV) [code = 65+ PNEUMOCOCCAL VACCINE (2 - PCV)] Future Scheduled 2023-04-12 [facility]ZA [facility]ACCINE [facility] Test 13:53:59 [code = INFLUENZA VACCINE] Future Scheduled 2023-04-12 Screening for [facility] Test 13:53:59 malignant neoplasm of colon (procedure) [code = 784745227] Future Scheduled 2023-04-12 Screening for [facility] Test 13:53:59 malignant neoplasm of colon (procedure) [code = 832653220] Future Scheduled 2023-04-12 Screening for [facility] Test 13:53:59 malignant neoplasm of colon (procedure) [code = 346978041] Future Scheduled 2023-04-12 Hepatitis C screening [facility] Test 13:53:59 (procedure) [code = 453886759] Future Scheduled 2023-04-12 BREAST CANCER [facility] Test 13:53:59 SCREENING [code = BREAST CANCER SCREENING] Future Scheduled 2023-03-19 Hepatitis C screening [facility] Test 06:39:07 (procedure) [code = 509542541] Future Scheduled 2023-03-19 BREAST CANCER [facility] Test 06:39:07 SCREENING [code = BREAST CANCER SCREENING] Future Scheduled 2023-03-19 COLONOSCOPY SCREENING [facility] Test 06:39:07 [code = COLONOSCOPY SCREENING] Future Scheduled 2023-03-19 SHINGLES VACCINES (1 Met [facility] Test 06:39:07 of 2) [code = SHINGLES VACCINES (1 of 2)] Future Scheduled 2023-03-19 COVID-19 VACCINE (2 - [facility] Test 06:39:07 Booster for Joe series) [code = COVID-19 VACCINE (2 - Booster for Joe series)] Future Scheduled 2023-03-19 65+ [facility]OCOCCAL [facility] Test 06:39:07 VACCINE (2 - PCV) [code = 65+ PNEUMOCOCCAL VACCINE (2 - PCV)] Future Scheduled 2023-03-19 [facility]ACCINE [facility] Test 06:39:07 [code = INFLUENZA VACCINE] Future Scheduled 2022-06-20 HEPATITIS B VACCINES Met [facility] Test 22:23:42 (1 of 3 - 3-dose series) [code = HEPATITIS B VACCINES (1 of 3 - 3-dose series)] Future Scheduled 2022-06-20 COVID-19 [facility]ACCINE (#[facility] Test 22:23:42 [code = COVID-19 VACCINE (#1)] Future Scheduled 2022-06-20 Hepatitis C screening Me [facility] Test 22:23:42 (procedure) [code = 121255293] Future Scheduled 2022-06-20 BREAST CANCER [facility] Test 22:23:42 SCREENING [code = BREAST CANCER SCREENING] Future Scheduled 2022-06-20 COLONOSCOPY SCREENING [facility] Test 22:23:42 [code = COLONOSCOPY SCREENING] Future Scheduled 2022-06-20 SHINGLES VACCINES (1 Met [facility] Test 22:23:42 of 2) [code = SHINGLES VACCINES (1 of 2)] Future Scheduled 2022-06-20 65+ P[facility]UMOCOCCAL [facility] Test 22:23:42 VACCINE (2 - PCV) [code = 65+ PNEUMOCOCCAL VACCINE (2 - PCV)] Future Scheduled 2022-06-20 INFLUENZA VACCINE [facility] Test 22:23:42 [code = INFLUENZA VACCINE] Future Scheduled 2021-11-21 COVID-19 VACCINE (1) [facility] Test 15:45:20 [code = COVID-19 VACCINE (1)] Future Scheduled 2021-11-21 Hepatitis C screening [facility] Test 15:45:20 (procedure) [code = 944069435] Future Scheduled 2021-11-21 BREAST CANCER [facility] Test 15:45:20 SCREENING [code = BREAST CANCER SCREENING] Future Scheduled 2021-11-21 COLONOSCOPY SCREENING [facility] Test 15:45:20 [code = COLONOSCOPY SCREENING] Future Scheduled 2021-11-21 [facility]IN[facility] 15:45:20 [code = SHINGLES VACCINES (#1)] Future Scheduled 2021-11-21 INFLUENZA VACCINE [facility] Test 15:45:20 [code = INFLUENZA VACCINE] Encounters Start End Encounter Admission Attending Care Care Encounter Source Date/Time Date/Time Type Type Clinicians Facility Department ID 2023-08-26 Outpatient Christian [facility] [id number] Common 13:42:00 [facility] [address] [facility] 2023-03-22 Outpatient Christian [facility] [id number] Common 13:30:00 [facility] [address] [facility] 2021-11-15 Outpatient Gonzales, STLMLC [facility] [id number] Common 14:33:19 Lonnie [facility] 2021-11-15 Outpatient Gonzales, STLMLC [facility] [id number] Common 13:32:47 Lonnie [facility] 2021-11-15 Outpatient Gonzales, STLMLC STLMLC [id number] Common 13:31:54 Lonnie [address] [facility] 2021-11-15 Outpatient Gonzales, STLMLC [facility] [id number] Common 13:31:14 Lonnie [facility] 2021-11-15 [facility] [id number] Common 13:17:33 [id number] [facility] 2021-08-17 Outpatient R [facility] LIZZ [id number] Univers 18:39:26 LAURA Headley [facility] 2023-08-17 2023-08-17 Outpatient GC_[id number] PRIV PRIV [id number] [facility] 00:00:00 00:00:00 diyala_S [id number] Medic al 2023-07-10 2023-07-10 Office Katia, 1.2.840.1 [id number] Methodi 13:10:00 13:34:44 Visit Scott Chan50.1.1 013 s t 3.430.2.7 Hospit a .3.584896 l .8 2023-07-10 2023-07-10 Office Katia, 1.2.840.1 [id number] Methodi 13:10:00 13:34:44 Visit Scott Chan50.1.1 013 s t 3.430.2.7 Hospit a .3.117401 l .8 2023-07-10 2023-07-10 Office Watts, 1.2.840.1 [id number] Methodi 10:30:00 11:27:41 Visit Chuck Chan50.1.[address] 3.430.2.7 Hospit a .3.657103 l .8 2023-07-10 2023-07-10 Office [facility] [address], 1.2.840.1 [id number] Methodi 10:30:00 11:27:41 Visit Chuck ParmarShirley 02101.1.[address] 3.430.2.7 Hospit a .3.099249 l .8 2023-05-30 2023-05-30 Orders Live, 1.2.840.1 [id number] Methodi 00:00:00 00:00:00 Only Marti S. [id number] 3.430.2.7 Hospit a .3.895509 l .8 2023-05-30 2023-05-30 [facility], 1.2.840.1 [id number] Methodi 00:00:00 00:00:00 Only Marti S. 20208.1.[address] 3.430.2.7 Hospit a .3.528971 l .8 2023-05-29 2023-05-29 [facility] 1.2.840.1 [id number] 56457 Methodi 17:40:27 23:59:00 Encounter Scott B. 91542.1.[address] 3.430.2.7 Hospit a .3.125538 l .8 2023-05-29 2023-05-29 [facility] 1.2.840.1 [id number] 60867 06930 Methodi 17:40:27 23:59:00 Encounter Scott Wall 36536.1.[address] 3.430.2.7 Hospit a .3.704983 l .8 2023-05-28 2023-05-28 [facility], 1.2.840.1 [id number] 010483 6651 Methodi 10:20:00 11:24:02 Visit Scott Wall 34253.1.1 047 s t 3.430.2.7 Hospit a .3.835884 l .8 2023-05-28 2023-05-28 [facility], 1.2.840.1 [id number] 999987 3836 Methodi 10:20:00 11:24:02 Visit Scott Wall 25987.1.1 047 s t 3.430.2.7 Hospit a .3.732265 l .8 2023-05-28 2023-05-28 Outpatient [facility] [id number] [id number] [place] 00:00:00 00:00:00 SCOTT [address] 2023-05-07 2023-05-07 Outpatient Myesha KULKARNIETREMAINE [facility] [id number] [facility] 13:40:00 17:07:31 TREMAINE CHAUDHRY [facility] 2023-05-07 2023-05-07 [facility] 1.2.840.114 70398 3109 [facility] 13:40:00 17:07:31 Visit [facility] 350..13.10 ity of [place] 4.2.7.2.686 Viraj as TIFFANIE?BLEA [phone] [address] OFFICE BUILDING 2023-04-30 2023-04-30 Telephone Miki Vieyra 1.2.840.1 [id number] Methodi 00:00:00 00:00:[address] 3.430.2.7 Hospit a .3.151750 l .8 2023-04-30 2023-04-30 Telephone Miki Vieyra 1.2.840.1 [id number] Methodi 00:00:00 00:00:[address] 3.430.2.7 Hospit a .3.083346 l .8 2023-04-25 2023-04-25 Outpatient Myesha RUVALCABA [facility] [id number] Univers 11:40:00 12:28:08 KRISTY earl [facility] 2023-04-25 2023-04-25 Urgent Kristy Ruvalcaba [facility] 1.2.840.11 4 [id number] Univers 11:40:00 12:28:08 Care Unknown, [facility] 350.1.13.10 [facility] 4.2.7.2.686 Viraj as TIFFANIE?BLEA [id number] [facility] [address] MEDICAL OFFICE BUILDING 2023-04-18 2023-04-18 Telephone Miki Vieyra 1.2.840.1 [id number] Methodi 00:00:00 00:00:[address] 3.430.2.7 Hospit a .3.908065 l .8 2023-04-18 2023-04-18 Telephone Miki Vieyra 1.2.840.1 [id number] Methodi 00:00:00 00:00:[address] 3.430.2.7 Hospit a .3.304499 l .8 2023-04-12 2023-04-12 [facility] 1.2.840.1 [id number] 42853 Methodi 11:13:30 23:59:00 Encounter Harsh Ayala 29676.1.[address] 3.430.2.7 Hospit a .3.340363 l .8 2023-04-12 2023-04-12 [facility] 1.2.840.1 [id number] 21001 43728 Methodi 11:13:30 23:59:00 Encounter Harsh Ayala 59351.1.[address] 3.430.2.7 Hospit a .3.147757 l .8 2023-04-12 2023-04-12 Anesthesia Eype, 1.2.840.1 [id number] 643 9184631 Methodi 12:38:00 13:44:00 Event Ellie Howell 17441.1.[address] 3.430.2.7 Hospit a .3.342917 l .8 2023-04-12 2023-04-12 Anesthesia Eype, 1.2.840.1 381175011 495 9638804 Methodi 12:38:00 13:44:00 Event Ellie Howell 47211.1.[address] 3.430.2.7 Hospit a .3.379648 l .8 2023-04-12 2023-04-12 Travel 1.2.840.1 1.2.983.574 3464 860255 Methodi 00:00:00 00:00:[address] 3.430.2.7 0.2.7.3.698 Ho spita .3.347498 084.8 l .8 2023-04-12 2023-04-12 Travel 1.2.840.1 1.2.232.644 7229 482119 Methodi 00:00:00 00:00:[address] 3.430.2.7 0.2.7.3.698 Ho spita .3.164474 084.8 l .8 2023-04-09 2023-04-09 Office Watts, 1.2.840.1 735921781 735556 3027 Methodi 10:45:00 11:37:37 Visit Chuck Wall 11188.1.[address] 3.430.2.7 Hospit a .3.820843 l .8 2023-04-09 2023-04-09 Office Mac, 1.2.840.1 432408931 533636 8112 Methodi 10:45:00 11:37:37 Visit Chuck Wall 50370.1.[address] 3.430.2.7 Hospit a .3.025609 l .8 2023-04-05 2023-04-05 Orders Alvarado, 1.2.840.1 503571574 326265 4708 Methodi 00:00:00 00:00:00 Only Susan 69750.1.[address] 3.430.2.7 Hospit a .3.571344 l .8 2023-04-05 2023-04-05 Telephone Silvis, 1.2.840.1 178455179 2100 398050 Methodi 00:00:00 00:00:00 Harsh Ayala 29020.1.1 055 s t 3.430.2.7 Hospit a .3.306619 l .8 2023-04-05 2023-04-05 Orders Alvarado, 1.2.840.1 [id number] 283335 6469 Methodi 00:00:00 00:00:00 Only Susan 45773.1.[address] 3.430.2.7 Hospit a .3.676802 l .8 2023-04-05 2023-04-05 Telephone Demetrius, 1.2.840.1 758842297 2100 895519 Methodi 00:00:00 00:00:00 Harsh Ayala 04407.1.1 055 s t 3.430.2.7 Hospit a .3.292476 l .8 2023-04-03 2023-04-03 Orders Christiano, 1.2.840.1 120230952 372461 7209 Methodi 00:00:00 00:00:00 Only Susan 95554.1.[address] 3.430.2.7 Hospit a .3.349531 l .8 2023-04-03 2023-04-03 Orders Christiano, 1.2.840.1 171230114 275144 0260 Methodi 00:00:00 00:00:00 Only Susan 56561.1.[address] 3.430.2.7 Hospit a .3.562540 l .8 2023-03-28 2023-03-28 Office Demetrius, 1.2.840.1 [id number] 805863 8418 Methodi 10:45:00 11:26:07 Visit Harsh Ayala 18707.1.1 570 s t 3.430.2.7 Hospit a .3.415292 l .8 2023-03-28 2023-03-28 Office Demetrius, 1.2.840.1 303414437 060098 1205 Methodi 10:45:00 11:26:07 Visit Harsh Ayala 03268.1.1 570 s t 3.430.2.7 Hospit a .3.781966 l .8 2023-03-28 2023-03-28 Orders Darshan 1.2.840.1 556816507 96389 53597 Methodi 00:00:00 00:00:00 Only Cisco Alejandre 21888.1.[address] 3.430.2.7 Hospit a .3.094438 l .8 2023-03-28 2023-03-28 Orders Darshan 1.2.840.1 862820130 61180 Methodi 00:00:00 00:00:00 Only Cisco Chan50.1.[address] 3.430.2.7 Hospit a .3.111425 l .8 2023-03-15 2023-03-15 Telephone Silvis, 1.2.840.1 619913408 2100 991886 Methodi 00:00:00 00:00:00 Harsh Chan50.1.1 581 s t 3.430.2.7 Hospit a .3.319466 l .8 2023-03-15 2023-03-15 Telephone Silvis, 1.2.840.1 [id number] 2099 623202 Methodi 00:00:00 00:00:00 Harsh Chan50.1.1 581 s t 3.430.2.7 Hospit a .3.736281 l .8 2023-03-12 2023-03-12 [facility], 1.2.840.1 [id number] 81535 52398 Methodi 14:03:45 23:59:00 Encounter Harsh Chan50.1.[address] 3.430.2.7 Hospit a .3.681503 l .8 2023-03-12 2023-03-12 [facility], 1.2.840.1 053423105 31500 21167 Methodi 14:03:45 23:59:00 Encounter Harsh Chan50.1.[address] 3.430.2.7 Hospit a .3.811495 l .8 2023-03-12 2023-03-12 [facility], 1.2.840.1 [id number] 651049 5373 Methodi 11:00:00 13:53:20 Visit Harsh Chan50.1.1 008 s t 3.430.2.7 Hospit a .3.774021 l .8 2023-03-12 2023-03-12 [facility], 1.2.840.1 683432162 523703 3803 Methodi 11:00:00 13:53:20 Visit Harsh Chan50.1.1 008 s t 3.430.2.7 Hospit a .3.658935 l .8 2023-03-12 2023-03-12 Orders Alvarado, 1.2.840.1 [id number] 170030 7611 Methodi 00:00:00 00:00:00 Only Susan 88157.1.[address] 3.430.2.7 Hospit a .3.362232 l .8 2023-03-12 2023-03-12 Orders Alvarado, 1.2.840.1 788271850 967282 0128 Methodi 00:00:00 00:00:00 Only Susan 70477.1.[address] 3.430.2.7 Hospit a .3.974613 l .8 2023-03-12 2023-03-12 Travel 1.2.840.1 1.2.580.242 2887 218328 Methodi 00:00:00 00:00:[address] 3.430.2.7 0.2.7.3.698 Ho spita .3.822511 084.8 l .8 2023-03-12 2023-03-12 Telephone Watts, 1.2.840.1 742524972 2099 228912 Methodi 00:00:00 00:00:[address]56.1.[address] 3.430.2.7 Hospit a .3.427396 l .8 2023-03-12 2023-03-12 Orders Alvarado, 1.2.840.1 055715855 252648 6229 Methodi 00:00:00 00:00:00 Only Susan 76369.1.[address] 3.430.2.7 Hospit a .3.096045 l .8 2023-03-12 2023-03-12 Orders Alvarado, 1.2.840.1 673192574 693529 4094 Methodi 00:00:00 00:00:00 Only Susan 02111.1.[address] 3.430.2.7 Hospit a .3.547296 l .8 2023-03-12 2023-03-12 Travel 1.2.840.1 1.2.603.831 7669 162786 Methodi 00:00:00 00:00:[address] 3.430.2.7 0.2.7.3.698 Ho spita .3.068742 084.8 l .8 2023-03-12 2023-03-12 Telephone [place], 1.2.840.1 998743943 2099 092597 Methodi 00:00:00 00:00:[address]99[address] 3.430.2.7 Hospit a .3.267504 l .8 2023-03-01 2023-03-01 Travel 1.2.840.1 1.2.634.065 4836 913554 Methodi 00:00:00 00:00:[address] 3.430.2.7 0.2.7.3.698 Ho spita .3.980334 084.8 l .8 2023-03-01 2023-03-01 Travel 1.2.840.1 1.2.081.108 3761 734458 Methodi 00:00:00 00:00:[address] 3.430.2.7 0.2.7.3.698 Ho spita .3.102910 084.8 l .8 2023-02-26 2023-02-26 Office Watts, 1.2.840.1 624632222 061354 0307 Methodi 10:30:00 12:01:43 Visit Chuck B. 19335.1.[address] 3.430.2.7 Hospit a .3.927714 l .8 2023-02-26 2023-02-26 Office [facility], 1.2.840.1 070622955 605855 2145 Methodi 10:30:00 12:01:43 Visit Chuck B. 10578.1.[address] 3.430.2.7 Hospit a .3.040202 l .8 2023-02-26 2023-02-26 Travel 1.2.840.1 1.2.451.084 2394 990287 Methodi 00:00:00 00:00:[address] 3.430.2.7 0.2.7.3.698 Ho spita .3.354257 084.8 l .8 2023-02-26 2023-02-26 Travel 1.2.840.1 1.2.459.531 3336 637537 Methodi 00:00:00 00:00:[address] 3.430.2.7 0.2.7.3.698 Ho spita .3.816383 084.8 l .8 2023-01-28 2023-01-28 Outpatient Myesha COMBS [facility] [id number] 768 Univers 10:30:00 10:30:00 [place] earl [facility] 2022-12-27 2022-12-27 Office Mac, 1.2.840.1 379323265 301805 4540 Methodi 11:15:00 12:17:40 Visit Chuck Parmar. 72426.1.[address] 3.430.2.7 Hospit a .3.685680 l .8 2022-12-27 2022-12-27 Office Mac, 1.2.840.1 483370056 683880 3877 Methodi 11:15:00 12:17:40 Visit Chuck Parmar. 95459.1.[address] 3.430.2.7 Hospit a .3.778554 l .8 2022-12-27 2022-12-27 Travel 1.2.840.1 1.2.597.018 3800 914341 Methodi 00:00:00 00:00:[address] 3.430.2.7 0.2.7.3.698 Ho spita .3.619682 084.8 l .8 2022-12-27 2022-12-27 Travel 1.2.840.1 1.2.155.566 5914 959819 Methodi 00:00:00 00:00:[address] 3.430.2.7 0.2.7.3.698 Ho spita .3.944758 084.8 l .8 2022-12-18 2022-12-18 Orders Buchert, 1.2.840.1 706248327 40786 62433 Methodi 00:00:00 00:00:00 Only Cisco BrunnerShirley 47598.1.[address] 3.430.2.7 Hospit a .3.012240 l .8 2022-12-18 2022-12-18 Orders Buchert, 1.2.840.1 373281596 01174 47078 Methodi 00:00:00 00:00:00 Only Cisco BrunnerShirley 97998.1.[address] 3.430.2.7 Hospit a .3.220199 l .8 2022-12-18 2022-12-18 OFFICE STLMLC STLC [id number] Co mmon 00:00:00 00:00:00 VISIT Spirit ESTAB PT - CHI LEVEL 4 [facility] 2022-12-17 2022-12-17 Telephone Silvis, 1.2.840.1 174570520 2099 433950 Methodi 00:00:00 00:00:00 Harsh Ayala 53500.1.1 925 s t 3.430.2.7 Hospit a .3.483947 l .8 2022-12-17 2022-12-17 Telephone Silvis, 1.2.840.1 229997479 2100 563922 Methodi 00:00:00 00:00:00 Harsh Ayala 52519.1.1 925 s t 3.430.2.7 Hospit a .3.303948 l .8 2022-12-05 2022-12-05 OFFICE STLMLC STLMLC [id number] Co mmon 00:00:00 00:00:00 VISIT Spirit ESTAB PT - CHI LEVEL 3 [facility] 2022-12-03 2022-12-03 (TEL) STLMLC STLMLC [id number] Co mmon 00:00:00 00:00:00 Spirit - CHI [facility] 2022-11-22 2022-11-22 Hospital [facility], 1.2.840.1 189019152 04499 56647 Methodi 13:54:51 23:59:00 Encounter Chuck Wall 15915.1.[address] 3.430.2.7 Hospit a .3.500185 l .8 2022-11-22 2022-11-22 Hospital [facility], 1.2.840.1 257843708 65611 35553 Methodi 13:54:51 23:59:00 Encounter Chuck Wall 16688.1.[address] 3.430.2.7 Hospit a .3.506612 l .8 2022-11-22 2022-11-22 Clinical Anatoly, 1.2.840.1 625502440 2100 495010 Methodi 10:30:00 15:44:21 Support Silvia 82244.1.[address] 3.430.2.7 Hospit a .3.684016 l .8 2022-11-22 2022-11-22 Clinical Anatoly 1.2.840.1 997179678 2100 944000 Methodi 10:30:00 15:44:21 Support Silvia 13628.1.[address] 3.430.2.7 Hospit a .3.614993 l .8 2022-11-22 2022-11-22 Office Watts, 1.2.840.1 740220035 770424 9104 Methodi 11:45:00 14:41:41 Visit Chuck Wall 02853.1.[address] 3.430.2.7 Hospit a .3.784724 l .8 2022-11-22 2022-11-22 Office Watts, 1.2.840.1 370038937 809576 2116 Methodi 11:45:00 14:41:41 Visit Chuck Wall 19163.1.[address] 3.430.2.7 Hospit a .3.616759 l .8 2022-11-22 2022-11-22 Rangel Ron 1.2.840.1 508617755 934480 7058 Methodi 00:00:00 00:00:00 Only Tracy 17401.1.[address] 3.430.2.7 Hospit a .3.187094 l .8 2022-11-22 2022-11-22 Travel 1.2.840.1 1.2.839.731 1113 421375 Methodi 00:00:00 00:00:[address] 3.430.2.7 0.2.7.3.698 Ho spita .3.185330 084.8 l .8 2022-11-22 2022-11-22 Rangel Ron, 1.2.840.1 911151038 221878 8308 Methodi 00:00:00 00:00:00 Only Tracy 67577.1.[address] 3.430.2.7 Hospit a .3.143691 l .8 2022-11-22 2022-11-22 Travel 1.2.840.1 1.2.844.158 7215 914459 Methodi 00:00:00 00:00:[address] 3.430.2.7 0.2.7.3.698 Ho spita .3.950664 084.8 l .8 2022-11-13 2022-11-13 Office Demetrius, 1.2.840.1 503105514 202367 8771 Methodi 11:15:00 13:44:37 Visit Harsh Ayala 37646.1.1 674 s t 3.430.2.7 Hospit a .3.401629 l .8 2022-11-13 2022-11-13 Office Demetrius, 1.2.840.1 982557812 915580 3501 Methodi 11:15:00 13:44:37 Visit Harsh Ayala 07168.1.1 674 s t 3.430.2.7 Hospit a .3.999190 l .8 2022-11-13 2022-11-13 Rangel Sexton, 1.2.840.1 542706715 13189 27219 Methodi 00:00:00 00:00:00 Only Cisco Alejandre 96540.1.[address] 3.430.2.7 Hospit a .3.925301 l .8 2022-11-13 2022-11-13 Orders Buchert, 1.2.840.1 693165698 96512 19432 Methodi 00:00:00 00:00:00 Only Cisco Alejandre 08112.1.[address] 3.430.2.7 Hospit a .3.937022 l .8 2022-11-07 2022-11-07 Travel 1.2.840.1 1.2.518.838 3204 172637 Methodi 00:00:00 00:00:[address] 3.430.2.7 0.2.7.3.698 Ho spita .3.859685 084.8 l .8 2022-11-07 2022-11-07 Travel 1.2.840.1 1.2.747.183 0169 679209 Methodi 00:00:00 00:00:[address] 3.430.2.7 0.2.7.3.698 Ho spita .3.134946 084.8 l .8 2022-10-31 2022-10-31 Office Tanesha [facility] 1.2.710.205 4536 8781 [facility] 14:00:00 14:30:00 Visit [facility]686 Carley MANE [phone] [address] 2022-10-31 2022-10-31 Outpatient R REED ALMENDAREZ [facility] [id number] Univers 14:00:00 14:00:00 REED ALMENDAREZ [facility] 2022-10-10 2022-10-10 Outpatient R REED ALMENDAREZ [facility] [id number] [facility] 10:30:00 10:30:00 REED ALMENDAREZ [facility] 2022-10-05 2022-10-05 [facility] 1.2.840.1 [id number] 95911 Methodi 06:50:14 23:59:00 Encounter Harsh Ayala 59265.1.[address] 3.430.2.7 Hospit a .3.634327 l .8 2022-10-05 2022-10-05 [facility], 1.2.840.1 [id number] 79994 19372 Methodi 06:50:14 23:59:00 Encounter Harsh Ayala 45964.1.[address] 3.430.2.7 Hospit a .3.060724 l .8 2022-10-05 2022-10-05 Anesthesia Taco Duffy 1.2.840.1 988252300 56948488 Methodi 08:46:00 09:59:00 Event José 12077.1.[address] 3.430.2.7 Hospit a .3.031372 l .8 2022-10-05 2022-10-05 Anesthesia Clive Taco 1.2.840.1 206641725 21 56693961 Methodi 08:46:00 09:59:00 Event José 51376.1.[address] 3.430.2.7 Hospit a .3.404924 l .8 2022-10-05 2022-10-05 Travel 1.2.840.1 1.2.159.115 3970 788399 Methodi 00:00:00 00:00:[address] 3.430.2.7 0.2.7.3.698 Ho spita .3.794460 084.8 l .8 2022-10-05 2022-10-05 Travel 1.2.840.1 1.2.617.686 8705 225135 Methodi 00:00:00 00:00:[address] 3.430.2.7 0.2.7.3.698 Ho spita .3.038537 084.8 l .8 2022-10-03 2022-10-03 [facility], 1.2.840.1 475284580 843406 7499 Methodi 12:10:00 12:15:00 Harsh Ayala 14833.1.1 210 s t 3.430.2.7 Hospit a .3.646809 l .8 2022-10-03 2022-10-03 Lab Silvis, 1.2.840.1 337982758 334380 7498 Methodi 12:10:00 12:15:00 Harsh Ayala 53049.1.1 210 s t 3.430.2.7 Hospit a .3.503005 l .8 2022-10-03 2022-10-03 Travel 1.2.840.1 1.2.491.462 3626 239395 Methodi 00:00:00 00:00:[address] 3.430.2.7 0.2.7.3.698 Ho spita .3.952158 084.8 l .8 2022-10-03 2022-10-03 Telephone Sirls, 1.2.840.1 565558329 2099730 Methodi 00:00:00 00:00:[address] 3.430.2.7 Hospit a .3.746954 l .8 2022-10-03 2022-10-03 Travel 1.2.840.1 1.2.193.933 6198 818701 Methodi 00:00:00 00:00:[address] 3.430.2.7 0.2.7.3.698 Ho spita .3.862671 084.8 l .8 2022-10-03 2022-10-03 Telephone Sirls, 1.2.840.1 9609861372099730 Methodi 00:00:00 00:00:[address] 3.430.2.7 Hospit a .3.447358 l .8 2022-10-02 2022-10-02 Telephone Sirls, 1.2.840.1 3139720002099658 Methodi 00:00:00 00:00:[address] 3.430.2.7 Hospit a .3.152902 l .8 2022-10-02 2022-10-02 Telephone Dunia, 1.2.840.1 404354342 2100 111308 Methodi 00:00:00 00:00:[address] 3.430.2.7 Hospit a .3.163806 l .8 2022-09-28 2022-09-28 Outpatient R TREMAINE CHAUDHRY [facility] [id number] Univers 10:00:00 10:13:10 TREMAINE CHAUDHRY ity of [facility] 2022-09-28 2022-09-28 Office Demar [facility] 1.2.840.114 57559 952 Univers 10:00:00 10:13:10 Visit [facility] 350.1.13.10 ity of [place] 4.2.7.2.686 Viraj as TIFFANIE?BLEA [phone] [address] OFFICE [facility] 2022-09-28 2022-09-28 Orders Doctor WILSON 1.2.840.114 393940 83 Univers 00:00:00 00:00:00 Only Unassigned, ANKIT 350.1.13.10 ity of [place]a [facility] 4.2.7.2.686 Viraj as [phone] [address] 2022-09-27 2022-09-27 Office Demetrius 1.2.840.1 796354488 440451 6988 Methodi 10:45:00 12:41:18 Visit Harsh Chan50.1.1 114 s t 3.430.2.7 Hospit a .3.271310 l .8 2022-09-27 2022-09-27 Office Demetrius 1.2.840.1 557391658 968509 8561 Methodi 10:45:00 12:41:18 Visit Harsh Ayala 19886.1.1 114 s t 3.430.2.7 Hospit a .3.860394 l .8 2022-09-27 2022-09-27 Orders Darshan 1.2.840.1 012143696 91910 90688 Methodi 00:00:00 00:00:00 Only Cisco Alejandre 51980.1.[address] 3.430.2.7 Hospit a .3.875264 l .8 2022-09-27 2022-09-27 Orders Buchert, 1.2.840.1 748148262 48462 64251 Methodi 00:00:00 00:00:00 Only Cisco Alejandre 66399.1.[address] 3.430.2.7 Hospit a .3.181988 l .8 2022-09-21 2022-09-21 Travel 1.2.840.1 1.2.058.588 8083 476230 Methodi 00:00:00 00:00:[address] 3.430.2.7 0.2.7.3.698 Ho spita .3.664556 084.8 l .8 2022-09-21 2022-09-21 Travel 1.2.840.1 1.2.444.141 [id number] Methodi 00:00:00 00:00:[address] 3.430.2.7 0.2.7.3.698 Ho spita .3.783222 084.8 l .8 2022-09-18 2022-09-18 [facility]patient [facility] [id number] [place] 00:00:00 00:00:00 HARSH Jeff [facility] 2022-09-11 2022-09-11 Office Demetrius, 1.2.840.1 [id number] Methodi 11:00:00 11:27:41 Visit Harsh Chan50.1.1 179 s t 3.430.2.7 Hospit a .3.518803 l .8 2022-09-11 2022-09-11 Office Demetrius, 1.2.840.1 [id number] 5184 Methodi 11:00:00 11:27:41 Visit Harsh Chan50.1.1 179 s t 3.430.2.7 Hospit a .3.628748 l .8 2022-09-05 2022-09-05 Outpatient R REED ALMENDAREZ [facility] [id number] Univers 11:00:00 11:00:00 REED ALMENDAREZ itlobo [facility] 2022-08-28 2022-08-28 Outpatient R TREMAINE CHAUDHRY [facility] [id number] Univers 15:30:00 16:03:47 TREMAINE CHAUDHRY rajat [facility] 2022-08-28 2022-08-28 Office Virginia Combs [facility] 1.2.840.114 [id number] Univers 15:30:00 16:03:47 Visit Tremanie Chaudhry [facility] 350.1.13. 10 ity of [place] 4.2.7.2.686 Viraj as TIFFANIE?BLEA [phone] [address] OFFICE [facility] 2022-08-28 2022-08-28 [facility] 1.2.840.114 [id number] Univers 00:00:00 00:00:00 [facility] 350.1.13.10 it y of [place] 4.2.7.2.686 Viraj as TIFFANIE?BLEA [phone] [address] 2022-07-26 2022-07-26 Certified Orthotist Practice Manager 1, [facility] 1. 2.840.114 [id number] Univers 20:00:00 22:30:00 Visit Reed Almendarez [place] 350.1.13. 10 ity of [place] 4.2.7.2.686 [place] [facility] [phone] [address] 2022-07-26 2022-07-26 Outpatient R REED ALMENDAREZ [facility] [id number] Univers 20:00:00 20:00:00 REED ALMENDAREZ [facility] 2022-07-26 2022-07-26 Orders Doctor WILSON 1.2.840.114 [id number] Univers 00:00:00 00:00:00 Only Unassigned, ANKIT 350.1.13.10 ity of [facility] 4.2.7.2.686 Viraj as [phone] [address] 2022-07-23 2022-07-23 (TEL) [facility] [id number] Co mmon 00:00:00 00:00:00 [facility] 2022-07-18 2022-07-18 [facility] 1.2.465.240 [id number] Univers 11:00:00 11:20:00 Visit [facility] 350.1.13.10 ity of [place] 4.2.7.2.686 [place] [phone] Oh joseak BRIGIDO [address] [place] [address] 2022-07-18 2022-07-18 Outpatient R TANESHA [facility] [id number] Univers 11:00:00 11:00:00 TANESHA [facility] 2022-07-18 2022-07-18 Outpatient R TANESHA [facility] [id number] Univers 11:00:00 11:00:00 TANESHA [facility] 2022-07-18 2022-07-18 (TEL) [facility] [id number] Co mmon 00:00:00 00:00:00 [facility] 2022-06-29 2022-06-29 Outpatient TREMAINE WORKMAN [facility] [id number] Univers 14:40:00 15:17:28 TREMAINE CHAUDHRY [facility] 2022-06-29 2022-06-29 Office Demar, [facility] 1.2.840.114 [id number] Univers 14:40:00 15:17:28 Visit [facility] 350.1.13.10 ity of [place] 4.2.7.2.686 Viraj as TIFFANIE?BLEA [phone] Oh dicamelia BARROSEY [address] [place] [address] OFFICE BUILDING 2022-06-29 2022-06-29 [facility] 1.2.840.114 [id number] Univers 00:00:00 00:00:00 [facility] 350.1.13.10 ity of [place] 4.2.7.2.686 Viraj as TIFFANIE?BLEA [phone] [address] MEDICAL OFFICE BUILDING 2022-06-26 2022-06-26 Orders Doctor STEVE 1.2.840.114 [id number] Univers 00:00:00 00:00:00 Only Unassigned, ANKIT 350.1.13.10 ity of [place] [facility] 4.2.7.2.686 Viraj as [phone] [address] 2022-06-20 2022-06-20 OFFICE STLMLC STLMLC [id number] Co mmon 00:00:00 00:00:[address] [facility] LEVEL 4 [facility] 2022-06-05 2022-06-05 OL DIG E/M STLC STLMLC [id number] Common 00:00:00 00:00:00 [facility] 11-20 Spir it [facility] 2022-06-05 2022-06-05 (TEL) STLC STLMLC [id number] Co mmon 00:00:00 00:00:00 [facility] 2022-06-04 2022-06-04 (TEL) STLMLC STLMLC [id number] Co mmon 00:00:00 00:00:00 [facility] 2022-06-04 2022-06-04 (TEL) STLMLC STLMLC [id number] Co mmon 00:00:00 00:00:00 [facility] 2022-05-25 2022-05-25 Piedad Chaudhry NMJONAH 1.2.840.114 [id number] Univers 00:00:00 00:00:00 [facility] 350.1.13.10 ity of [place] 4.2.7.2.686 Viraj as TIFFANIE?BLEA [phone] [address] MEDICAL OFFICE BUILDING 2022-05-24 2022-05-24 (TEL) STLMLC STLMLC [id number] Co mmon 00:00:00 00:00:00 [facility] 2022-05-16 2022-05-16 OFFICE STLMLC STLMLC [id number] Co mmon 00:00:00 00:00:00 VISIT [facility] ESTAB PT - CHI LEVEL 4 [facility] 2022-05-16 2022-05-16 SUB [facility]AL [facility] [id number] Common 00:00:00 00:00:00 [facility] Spirit WELLNESS - CHI VISIT [facility] 2022-04-13 2022-04-13 (TEL) [facility] [id number] Co mmon 00:00:00 00:00:00 [facility] 2022-03-11 2022-03-11 [facility] 1.2.840.114 [id number] Univers 00:00:00 00:00:00 Tejal VILLAFUERTE 350.1.13.10 ity of [facility] 4.2.7.2.686 [place] [phone] [facility] [address] BUILDING 2022-02-27 2022-02-27 (TEL) [facility] [id number] Co mmon 00:00:00 00:00:00 [facility] 2022-02-14 2022-02-14 (TEL) [facility] [id number] Co mmon 00:00:00 00:00:00 [facility] 2022-01-08 2022-01-08 Ruslan Chaudhry [facility] 1.2.840.114 [id number] Univers 00:00:00 00:00:00 T[facility] 350.1.13.10 ity of [place] 4.2.7.2.686 Viraj as TIFFANIE?BLEA [phone] Oh dical KNEY [address] MEDICAL OFFICE BUILDING 2021-12-20 2021-12-20 Orders Doctor STEVE 1.2.840.114 [id number] Univers 00:00:00 00:00:00 Only Unassigned, ANKIT 350.1.13.10 ity of [place] [facility] 4.2.7.2.686 Viraj as [phone] [place] [address] [address] 2021-12-18 2021-12-18 Outpatient TREMAINE WORKMAN [facility] [id number] Univers 10:40:00 11:10:32 TREMAINE CHAUDHRY [facility] 2021-12-13 2021-12-13 Orders Doctor WILSON 1.2.840.114 [id number] Univers 00:00:00 00:00:00 Only Unassigned, ANKIT 350.1.13.10 ity of [facility] 4.2.7.2.686 Viraj as [phone] [address] 2021-10-25 2021-10-25 Office Chris 1.2.840.1 [id number] Methodi 11:00:00 12:33:49 Visit Ariana Luna 93158.1.[address] 3.430.2.7 Hospit a .3.959553 l .8 2021-10-25 2021-10-25 Outpatient [facility] [id number] [address] [place] 00:00:00 00:00:00 ARIANA [address] 2021-10-24 2021-10-24 Orders Dagoberto 1.2.840.1 [id number] Methodi 00:00:00 00:00:00 Only Radha Chan50.1.[address] 3.430.2.7 Hospit a .3.964716 l .8 2021-10-19 2021-10-19 Telephone Demar NMJONAH 1.2.840.114 [id number] Univers 00:00:00 00:00:00 [facility] 350.1.13.10 ity of [place] 4.2.7.2.686 Viraj as TIFFANIE?BLEA [phone] [address] MEDICAL OFFICE [facility] 2021-10-18 2021-10-18 Telephone Silvis 1.2.840.1 [id number] Methodi 10:00:00 10:15:00 Consult Harsh Ayala 82286.1.1 043 s t 3.430.2.7 Hospit a .3.394121 l .8 2021-10-16 2021-10-16 Outpatient R TREMAINE CHAUDHRY [facility] [id number] Univers 09:20:00 10:00:34 TREMAINE CHAUDHRY [facility] 2021-10-16 2021-10-16 Office Demar [facility] 1.2.840.114 [id number] Univers 09:20:00 10:00:34 Visit Tremaine Erickson [facility] 350.1.13.10 ity [facility] 4.2.7.2.686 Viraj as TIFFANIE?BLEA [phone] Oh yulisa [place] [address] [facility] MED[facility] OFF[facility] 2021-10-16 2021-10-16 Outpatient TREMAINE WORKMAN [facility] [id number] Univers 09:20:00 10:00:34 TREMAINE CHAUDHRY lobo [facility] 2021-10-12 2021-10-12 Orders Fawad, 1.2.840.1 [id number] Methodi 00:00:00 00:00:00 Only Moriah 19994.1.[address] 3.430.2.7 Hospit a .3.105261 l .8 2021-10-11 2021-10-11 Travel 1.2.840.1 1.2.365.206 0447 [id number] Methodi 00:00:00 00:00:[address] 3.430.2.7 0.2.7.3.698 Ho spita .3.505775 084.8 l .8 2021-10-10 2021-10-10 Outpatient TREMAINE WORKMAN [facility] [id number] Univers 08:29:06 23:59:00 TREMAINE CHAUDHRY lobo [facility] 2021-10-10 2021-10-10 [facility] 1.2.654.730 [id number] Univers 08:29:06 23:59:00 Encounter Tremaine Erickson [place] 350.1.13.10 ity of [place] [phone] [facility] [address] [place] [address] 2021-10-06 2021-10-06 Travel 1.2.840.1 1.2.295.237 2617 [id number] Methodi 00:00:00 00:00:[address] 3.430.2.7 0.2.7.3.698 spita .3.187219 084.8 l .8 2021-10-06 2021-10-06 Outpatient DEMETRIUS, [facility] [id number] [address] [place] 00:00:00 00:00:00 HARSH [address] 2021-10-06 2021-10-06 Outpatient DEMETRIUS [facility] [id number] [address] [place] 00:00:00 00:00:00 HARSH [address] 2021-10-02 2021-10-02 Orders Fawad, 1.2.840.1 [id number] Methodi 00:00:00 00:00:00 Only Moriah 57913.1.[address] 3.430.2.7 Hospit a .3.296158 l .8 2021-09-28 2021-09-28 Office Demetrius, 1.2.840.1 [id number] Methodi 10:30:00 10:56:04 Visit Harsh Ayala 41732.1.1 503 s t 3.430.2.7 Hospit a .3.445644 l .8 2021-09-25 2021-09-25 Certified Orthotist Practice Manager Lab, Ang - Kavin [facility] 1.2.840.1 14 [id number] Univers 11:15:27 11:30:27 Visit Tremaine Chaudhry [facility] 350.1.13. 10 ity [facility] 4.2.7.2.686 Viraj as TIFFANIE?BLEA [phone] [facility] 353 [facility] OFFICE BUILDING 2021-09-25 2021-09-25 Outpatient Myesha TREMAINE CHAUDHRY [facility] [id number] Univers 10:00:00 11:15:11 DEMARTREMAINE LIMON [facility] 2021-09-25 2021-09-25 Office Demar [facility] 1.2.840.114 [id number] Univers 09:47:18 11:15:11 Visit [facility] 350.1.13.10 [facility] 4.2.7.2.686 Viraj as TIFFANIE?BLEA [phone] Me dical KNEY 092 [facility] 2021-09-25 2021-09-25 Orders Doctor STEVE 1.2.840.114 [id number] Univers 00:00:00 00:00:00 Only Unassigned, ANKIT 350.1.13.10 ity of [place] [facility] 4.2.7.2.686 Viraj as [phone] [address] 2021-09-18 2021-09-18 Telephone [facility] 1.2.840.114 [id number] Univers 00:00:00 00:00:00 Tejal A [place] 350.1.13.10 ity of [facility] 4.2.7.2.[place] [phone] Oh dical NAL 044 [facility] 2021-09-18 2021-09-18 Telephone [facility] 1.2.840.114 [id number] Univers 00:00:00 00:00:00 Tejal A [place] 350.1.13.10 ity of [place].2.[place] [phone] Oh dical NAL 044 [facility] 2021-09-13 2021-09-13 Orders Doctor STEVE 1.2.840.114 [id number] Univers 00:00:00 00:00:00 Only Unassigned, ANKIT 350.1.13.10 ity of [place] [facility] 4.2.7.2.686 Viraj as [phone] [address] 2021-09-08 2021-09-08 Telephone [facility] 1.2.840.114 [id number] Univers 00:00:00 00:00:00 Tejal A [place] 350.1.13.10 ity of [facility] [place] 4.2.7.2.[place] [phone] Oh dical NAL 231 [facility] 2021-09-06 2021-09-06 Travel 1.2.840.1 1.2.913.746 [id number] Methodi 00:00:00 00:00:[address] 3.430.2.7 0.2.7.3.698 Ho spita .3.487661 084.8 l .8 2021-09-01 2021-09-01 Refill [facility] 1.2.840.114 [id number] Univers 00:00:00 00:00:00 Tejal A [place] 350.1.13.10 ity of [facility] [place] 4.2.7.2.[place] [phone] Oh dical [facility] 231 [facility] 2021-09-01 2021-09-01 Telephone [facility] 1.2.840.114 [id number] Univers 00:00:00 00:00:00 Tejal A [place] 350.1.13.10 ity of [facility] [place] 4.2.7.2.[place] [phone] Oh dical NAL 231 [facility] 2021-08-10 2021-08-10 Orders Doctor STEVE 1.2.840.[id number] [place] [address] 00:00:00 00:00:00 Only Unassigned, ANKIT 350.1.13.10 ity of [place] [facility] 4.2.7.2.686 Viraj as [phone] [address] 2021-08-04 2021-08-04 (TEL) [facility] [id number] Co mmon 00:00:00 00:00:00 [facility] 2021-07-25 2021-07-25 Telephone [facility] 1.2.840.114 [id number] Univers 00:00:00 00:00:00 Tejal A [place] 350.1.13.10 ity of [place].2.[place] [phone] Oh dical nal 231 [facility] 2021 2021 Telephone [facility] 1.2.840.114 8 [id number] [facility] 00:00:00 00:00:00 Tejal A [place] 350.1.13.10 ity of [place].2.[place] [phone] Oh dical nal [address] 2021-07-11 2021-07-11 Orders Doctor STEVE 1.2.840.114 [id number] Univers 00:00:00 00:00:00 Only Unassigned, ANKIT 350.1.13.10 ity of [place] [facility] 4.2.7.2.686 Viraj as [phone] [address] 2021-06-29 2021-06-29 Orders Doctor STEVE 1.2.840.114 [id number] Univers 00:00:00 00:00:00 Only Unassigned, ANKIT 350.1.13.10 ity of [place] [facility] 4.2.7.2.686 Viraj as [phone] [address] 2021-05-18 2021-05-18 Outpatient STLMLC [facility] [id number] Common 00:00:00 00:00:00 [facility] 2020-12-29 2020-12-29 Outpatient Myesha MEJIA [facility] [id number] Univers 00:00:00 00:00:00 BLANCA palacios [facility] 2020-12-21 2020-12-21 Outpatient Myesha MEJIA [facility] [id number] Univers 15:30:00 15:30:00 BLANCA ashton [facility] 2020-12-19 2020-12-19 Outpatient R ZAHRAA [facility] [id number] Univers 09:00:00 09:00:00 TEJAL earl [facility] 2020-10-26 2020-10-26 [facility] 1.2.840.114 [id number] 30 19:10:20 19:41:18 Care [facility] 350.1.13.10 [place] 4.2.7.2.686 Professio [phone] nal [address] 2020-10-26 2020-10-26 Outpatient Myesha DHILLON [facility] [id number] Univers 19:00:00 19:00:00 INDIRA earl [facility] 2020-09-20 2020-09-20 Telephone Zahraa [facility] 1.2.840.114 [id number] 00:00:00 00:00:00 Tejal [place] 350.1.13.10 [place] 4.2.7.2.686 Professio [phone] [address] 2020-08-26 2020-08-26 [facility] 1.2.840.114 [id number] 10:00:41 11:52:04 Visit Tejal Villafuerte 350.1.13.10 [place] 4.2.7.2.686 Professio [phone] [address] 2020-08-26 2020-08-26 [id number] Univers 10:00:00 10:00:00 TEJAL rajat [facility] 2020-05-25 2020-05-25 [facility] [id number] Univers 09:15:00 09:15:00 TEJAL [facility] 2020-05-23 2020-05-23 [facility] 1026 [id number] Univers 09:40:00 09:40:00 TEJAL [facility] 2020-05-19 2020-05-19 Outpatient R [facility] LIZZ 539 [id number] Univers 06:28:41 06:28:41 LAURA Headley [facility] 2020-05-18 2020-05-18 Out[id number] Univers 13:30:00 13:30:00 LAURA Headley [facility] 2020-02-09 2020-02-09 Outpatient R [facility] [id number] Univers 12:00:00 12:00:00 LAURA Headley [facility] 2019-06-17 2019-06-17 Outpatient [facility] 27 [id number] Common 08:45:00 08:45:00 t Specialty/U Sp ilia Specialty rology - [facility] 2019-06-05 2019-06-05 Outpatient [facility] 27 [id number] Common 10:44:00 10:44:00 t Specialty/U Sp ilia Specialty rology - [facility] 2019-05-26 2019-05-26 Outpatient Bere Duque 26 [id number] Common 13:30:00 13:30:00 t Specialty/U Sp ilia Specialty rology - [facility] Results Test Description Test Time Test Comments Results Result Comments Source CBC W/AUTO DIFF 2023-05-03 00:00:00 Test Item Value Reference Range Interpretation Comme nts NUCLEATED RBCS (test code 0.0 /100 WBC'S See_Comment [Automated message] The = 59527-8) system which ge nerated this result transmit tom reference range: 0.0 /100 WBC'S. The reference range was not used to interpret th is result as normal/abnormal . ABSOLUTE EOSINOPHILS (test 0.19 K/UL See_Comment [Automated message] The code = 99614-5) system which generated this result transmit tom reference range: 0.00-0.5 0 K/UL. The reference range was not used to interpret th is result as normal/abnormal . ABSOLUTE LYMPHOCYTES (test 1.47 K/UL See_Comment [Automated message] The code = 78686-2) system which generated this result transmit tom reference range: 1.00-4.0 0 K/UL. The reference range was not used to interpret th is result as normal/abnormal . ABSOLUTE MONOCYTES (test 0.57 K/UL See_Comment [A utomated message] The code = 22795-4) system which generated this result transmit tom reference range: 0.20-1.0 0 K/UL. The reference range was not used to interpret th is result as normal/abnormal . ABSOLUTE NEUTROPHILS (test 3.38 K/UL See_Comment [Automated message] The code = 87095-6) system which generated this result transmit tom reference range: 1.50-7.5 0 K/UL. The reference range was not used to interpret th is result as normal/abnormal . BASOPHILS (test code = 0.7 % 42057-3) EOSINOPHILS (test code = 3.4 % 27424-3) HEMATOCRIT (test code = 39.4 % See_Comment [Au tomated message] The 17861-2) system which ge nerated this result transmit [...] . LYMPHOCYTES (test code = 25.9 % 00199-7) MCH (test code = 53030-9) 34.3 PG See_Comment H [ Automated message] The system which ge nerated this result transmit tom reference range: 25.0-33. 0 PG. The reference range was not used to interpret th is result as normal/abnormal . MCHC (test code = 21973-9) 34.8 G/DL See_Comment [Automated message] The system which ge nerated this result transmit tom reference range: 31.0-36. 0 G/DL. The reference range was not used to interpret th is result as normal/abnormal . MCV (test code = 81965-3) 98.5 fL See_Comment [ Automated message] The system which ge nerated this result transmit tom reference range: 80.0-99. 0 fL. The reference range was not used to interpret th is result as normal/abnormal . MONOCYTES (test code = 10.1 % 36332-1) NEUTROPHILS (test code = 59.5 % 96496-9) PLATELET COUNT (test code 208 K/UL See_Comment [ Automated message] The = 92736-6) system which [employer] nerated this result transmit tom reference range: 130-400 K/UL. The reference range was not used to interpret th is result as normal/abnormal . RBC (test code = 65675-0) 4.00 M/UL See_Comment [ Automated message] The system which [employer] nerated this result transmit tom reference range: 3.80-5.4 0 M/UL. The reference range was not used to interpret th is result as normal/abnormal . RDW (test code = 62694-3) 12.5 % See_Comment [ Automated message] The system which ge nerated this result transmit tom reference range: 11.5-15. 0 %. The reference range was not used to interpret th is result as normal/abnormal . WBC (test code = 22079-0) 5.7 K/UL See_Comment [ Automated message] The system which ge nerated this result transmit tom reference range: 3.5-11.0 K/UL. The reference range was not used to interpret th is result as normal/abnormal . LIPID PANEL WITH REFLEX DIRECT [id number] 00:00:00 Test Item Value Reference Range Interpretation Comments CALC LDL CHOL (test 182 MG/DL See_Comment H [Automa tom message] code = 97577-7) The system [facility] generated this result transmit tom reference range : <100 MG/DL. The reference range was not used to interpret this result as normal/abnormal . CHOLESTEROL (test code 268 MG/DL See_Comment H [Aut omated message] = 2093-3) The system [facility] generated this result transmit tom reference range : <200 MG/DL. The reference range was not used to interpret this result as normal/abnormal . HDL CHOLESTEROL (test 61 MG/DL See_Comment [Auto mated message] code = 2085-9) The system [facility] generated this result transmit tom reference range : >39 MG/DL. The refe rence range was not u sed to interpret th is result as normal/abnormal . RISK RATIO LDL/HDL 2.98 RATIO See_Comment [Automat ed message] (test code = 95832-5) The sy stem which generated this result transmit tom reference range : <3.22 RATIO. Th e reference range was not used to interpret this result as normal/abnormal . TRIGLYCERIDES (test 119 MG/DL See_Comment [Automa tom message] code = 2571-8) The system [facility] generated this result transmit tom reference range : <150 MG/DL. The reference range was not used to interpret this result as normal/abnormal . COMPREHENSIVE METABOLIC [id number] 00:00:00 Test Item Value Reference Range Interpretation Comments ALBUMIN (test code = 4.1 G/DL See_Comment [Autom ated message] 1751-7) The system [facility] generated this result transmit tom reference [...] MG/DL See_Comment [Automated message] (test code = 1974-2) The [facility] tem which generated this result transmit tom reference range : <=1.2 MG/DL. Th e reference range was not used to interpret this result as normal/abnormal . BUN (test code = 20 MG/DL See_Comment [Automated message] 3094-0) The system [facility] generated this result transmit tom reference range : 8-23 MG/DL. The reference range was not used to interpret this result as normal/abnormal . CALCIUM (test code = 9.6 MG/DL See_Comment [Autom ated message] 48669-1) The system [facility] generated this result transmit tom reference range : 8.5-10.5 MG/DL. The reference range was not used to interpret this result as normal/abnormal . CALC A/G RATIO (test 1.4 RATIO See_Comment [Autom ated message] code = 1759-0) The system [facility] generated this result transmit tom reference range : 1.0-2.6 RATIO. The reference range was not used to interpret this result as normal/abnormal . CALC BUN/CREAT (test 23 RATIO See_Comment [Autom ated message] code = 3097-3) The system [facility] generated this result transmit tom reference range : 6-28 RATIO. The reference range was not used to interpret this result as normal/abnormal . CALC GLOBULIN (test 2.9 G/DL See_Comment [Automa tom message] code = 95854-6) The system [facility] generated this result transmit tom reference range : 1.9-3.7 G/DL. T he reference range was not used to interpret this result as normal/abnormal . CARBON DIOXIDE (test 27 MEQ/L See_Comment [Autom ated message] code = 1963-8) The system [facility] generated this result transmit tom reference range : 19-31 MEQ/L. Th e reference range was not used to interpret this result as normal/abnormal . CHLORIDE (test code 107 MEQ/L See_Comment [Automa tom message] = 2074-0) The system [facility] generated this result transmit tom reference range : 95-107 MEQ/L. T he reference range was not used to interpret this result as normal/abnormal . CREATININE (test 0.88 MG/DL See_Comment [Automated message] code = 2160-0) The system [employer] generated this result transmit tom reference range : 0.60-1.30 MG/DL . The reference range was not used to interpret this result as normal/abnormal . eGFR (2020 CKD-EPI) 68 ML/MIN/1.73 See_Comment [Auto mated message] (test code = The system [facility] hoozin 74944-1) generated this result transmit tom reference range : >60 ML/MIN/1.73. Th e reference range was not used to interpret this result as normal/abnormal . GLUCOSE (test code = 68 MG/DL See_Comment L [Autom ated message] 1558-6) The system [employer] generated this result transmit tom reference range : 70-99 MG/DL. Th e reference range was not used to interpret this result as normal/abnormal . POTASSIUM (test code 4.0 MEQ/L See_Comment [Autom ated message] = 2823-3) The system [employer] generated this result transmit tom reference range : 3.5-5.4 MEQ/L. The reference range was not used to interpret this result as normal/abnormal . PROTEIN, TOTAL (test 7.0 G/DL See_Comment [Autom ated message] code = 2885-2) The system [employer] generated this result transmit tom reference range : 6.1-8.3 G/DL. T he reference range was not used to interpret this result as normal/abnormal . AST (test code = 17 U/L See_Comment [Automated message] 1920-8) The system [employer] generated this result transmit tom reference range : 9-40 U/L. The reference range was not used to interpret this result as normal/abnormal . ALT (test code = 11 U/L See_Comment [Automated message] 1742-6) The system [facility] generated this result transmit tom reference range : 5-40 U/L. The reference range was not used to interpret this result as normal/abnormal . SODIUM (test code = 145 MEQ/L See_Comment [Automa tom message] 2951-2) The system [facility] generated this result transmit tom reference range : 133-146 MEQ/L. The reference range was not used to interpret this result as normal/abnormal . POCT MOLECULAR [id number] 17:08:38 Test Item Value Reference Range Interpretation Comments POCT Molecular Strep (test code = Negative Negative 63675-0) Lab Interpretation (test code = Normal 44799-4) [facility] [id number] 20:58:00 Test Item Value Reference Range Interpretation Comments Case number (test code = [id number]) Surgical pathology See link below for report (test code = PDF Lab Report 2255) Result status (test code This is Final Report = [id number]) for [id number] [facility] pathology [id number] 20:58:00 Test Item Value Reference Range Interpretation Comments Case number (test code = [id number]) Surgical pathology See link below for report (test code = PDF Lab Report 2255) Result status (test code This is Final Report = [id number]) for [id number] [place] [address] [id number] 20:21:29 Test Item Value Reference Range Interpretation Comments Ventricular rate (test 77 code = 253) Atrial rate (test code = 77 255) NV interval (test code = 192 266) QRSD [...] Hanks MD (2064) on 04/15/2023 3:20:49 PM [place] [address] [id number] 20:21:29 Test Item Value Reference Range Interpretation Comments Ventricular rate (test 77 code = 253) Atrial rate (test code = 77 255) NV interval (test code = 192 266) QRSD [...] Hanks MD (2064) on 04/15/2023 3:20:49 PM [facility] [id number] 13:04:00 Test Item Value Reference Range Interpretation Comments Glucose (test code 92 mg/dL 70-99 = 2345-7) BUN (test code = 17 mg/dL 8-27 3094-0) Creatinine (test 0.80 mg/dL 0.57-1.00 code = 2160-0) eGFR (test code = 77 mL/min/1.73 >=59 96373-3) BUN/creatinine 10-17 ratio (test code = 3097-3) Sodium (test code = 142 mmol/L 374-444 4838-2) Potassium (test 3.8 mmol/L 3.5-5.2 code = 2823-3) Chloride (test code 105 mmol/L 96-106 = 2075-0) CO2 (test code = 22 mmol/L 20-2027-) Calcium (test code 9.4 mg/dL 8.7-10.3 = 04318-8) Protein (test code 6.9 g/dL 6.0-8.5 = 2885-2) Albumin (test code 4.6 g/dL 3.7-4.7 = 1751-7) Globulin, total 2.3 g/dL 1.5-4.5 (test code = 56977-7) Albumin/globulin 2.0 1.2-2.2 ratio (test code = 1759-0) Total bilirubin 0.3 mg/dL 0.0-1.2 (test code = 1975-2) Alkaline 75 See_Comment [Automated phosphatase (test message] T he code = 6768-6) system which generated this result transmit tom reference range : 44 - 121 IU/L. The reference range was not used to interpret this result as normal/abnormal . AST (test code = 16 See_Comment [Automated 1919-) message] The system which generated this result transmit tom reference range : 0 - 40 IU/L. The reference range was not used to interpret this result as normal/abnormal . ALT (test code = 9 See_Comment [Automated 1741-) message] The system which generated this result transmit tom reference range : 0 - 32 IU/L. The reference range was not used to interpret this result as normal/abnormal . MARIELA (test code = Performed at: 01 MARIELA) - [facility] [id number] [place], [place] [id number] Director: Froy Lujan MD, Phone: [phone] [facility] with platelet and [id number] 13:04:00 Test Item Value Reference Range Interpretation Comments WBC (test code = 7.0 See_Comment [Automated 8274-2) message] The system which generated this result transmitted reference range : 3.4 - 10.8 x10E3/uL. The reference range was not used to interpret this result as normal/abnormal . RBC (test code = 4.10 See_Comment [Automated 219-8) message] The system which generated this result [...] 0 % Not Estab. (test code = 89671-3) Immature 0.0 See_Comment [Automated granulocytes, message] The absolute (test code = system which 70819-8) generated this result transmitted reference range : 0.0 - 0.1 x10E3/uL. The reference range was not used to interpret this result as normal/abnormal . MARIELA (test code = MARIELA) Performed at: [address] [place] [id number] Director: Froy Lujan MD, Phone: [phone] Lab Interpretation Abnormal (test code = 61745-6) [facility] [id number] 13:04:00 Test Item Value Reference Range Interpretation [...] = Performed at: 01 MARIELA) - [facility] [address] [id number] Director: Froy Lujan MD, Phone: [phone] [facility], [id number] 13:04:00 Test Item Value Reference Range Interpretation Comments aPTT (test 26 See_Comment This test has n ot been code = [place] [address]-1) monitoring unfractionated heparintherapy. aPTT-based ther apeutic ranges for unfractionated heparintherapy have not been establ ished. For general macario delines onHeparin monit oring, refer to the [facility] Directory of Se rvices. [Automated mess age] The system whic h generated this result transmitted ref erence range: 24 - 33 sec. The reference r debbie was not used to interpret this result as normal/abnor mal. MARIELA (test Performed at: - code = MARIELA) [facility] [address] [id number] Director: Froy Lujan MD, Phone: [phone] [facility] [id number] 13:04:00 Test Item Value Reference Range Interpretation Comments Glucose (test code 92 mg/dL 70-99 = 2345-7) BUN (test code = 17 mg/dL 8-27 3094-0) Creatinine (test 0.80 mg/dL 0.57-1.00 code = 2160-0) eGFR (test code = 77 mL/min/1.73 >=59 65691-0) BUN/creatinine 10-17 ratio (test code = 3097-3) Sodium (test code = 142 mmol/L 119-903 7681-2) Potassium (test 3.8 mmol/L 3.5-5.2 code = 2823-3) Chloride (test code 105 mmol/L 96-106 = 2075-0) CO2 (test code = 22 mmol/L 20-29 8-9) Calcium (test code 9.4 mg/dL 8.7-10.3 = 31723-9) Protein (test code 6.9 g/dL 6.0-8.5 = 2885-2) Albumin (test code 4.6 g/dL 3.7-4.7 = 1751-7) Globulin, total 2.3 g/dL 1.5-4.5 (test code = 82080-7) Albumin/globulin 2.0 1.2-2.2 ratio (test code = 1759-0) Total bilirubin 0.3 mg/dL 0.0-1.2 (test code = 1974-2) Alkaline 75 See_Comment [Automated phosphatase (test message] T he code = 6768-6) system which generated this result transmit tom reference range : 44 - 121 IU/L. The reference range was not used to interpret this result as normal/abnormal . AST (test code = 16 See_Comment [Automated 1919-8) message] The system which generated this result transmit tom reference range : 0 - 40 IU/L. The reference range was not used to interpret this result as normal/abnormal . ALT (test code = 9 See_Comment [Automated 1741-6) message] The system which generated this result transmit tom reference range : 0 - 32 IU/L. The reference range was not used to interpret this result as normal/abnormal . MARIELA (test code = Performed at: MARIELA) - [facility] [address] [place], [place] [id number] Director: Froy Lujan MD, Phone: [phone] [facility] with platelet and dukemgecvxhp3497-01-14 13:04:00 Test Item Value Reference Range Interpretation Comments WBC (test code = 7.0 See_Comment [Automated 2849-2) message] The system which generated this result transmitted reference range : 3.4 - 10.8 x10E3/uL. The reference range was not used to interpret this result as normal/abnormal . RBC (test code = 4.10 See_Comment [Automated 528-8) message] The system which generated this result [...] 0 % Not Estab. (test code = 22089-7) Immature 0.0 See_Comment [Automated granulocytes, message] The absolute (test code = system which 56776-8) generated this result transmitted reference range : 0.0 - 0.1 x10E3/uL. The reference range was not used to interpret this result as normal/abnormal . MARIELA (test code = MARIELA) Performed at: 01 - [facility] [address] [id number] Director: Froy Lujan MD, Phone: [phone] Lab Interpretation Abnormal (test code = 80787-8) [facility] with [id number] 13:04:00 Test Item Value Reference Range Interpretation [...] = Performed at: 01 MARIELA) - [facility] [address] [id number] Director: Froy Lujan MD, Phone: [phone] [facility], [id number] 13:04:00 Test Item Value Reference Range Interpretation Comments aPTT (test 26 See_Comment This test has n ot [place] = [place] [address]-1) monitoring unfractionated heparintherapy. aPTT-based ther apeutic ranges for unfractionated heparintherapy have not been establ ished. For general macario delines onHeparin monit oring, refer to the [place] Directory of Se rvices. [Automated mess age] The system whic h generated this result transmitted ref erence range: 24 - 33 sec. The reference r debbie was not used to interpret this result as normal/abnor mal. MARIELA (test Performed at: 01 - code = MARIELA) [facility] [address] [place], [place] [id number] Director: Froy Lujan MD, Phone: [phone] [facility] [id number] 13:04:00 Test Item Value Reference Range Interpretation Comments Glucose (test code 92 mg/dL 70-99 = 2345-7) BUN (test code = 17 mg/dL 8-27 3094-0) Creatinine (test 0.80 mg/dL 0.57-1.00 code = 2160-0) eGFR (test code = 77 mL/min/1.73 >=59 45525-0) BUN/creatinine 21 -28 ratio (test code = 3097-3) Sodium (test code = 142 mmol/L 095-741 7319-2) Potassium (test 3.8 mmol/L 3.5-5.2 code = 2823-3) Chloride (test code 105 mmol/L 96-106 = 2075-0) CO2 (test code = 22 mmol/L 20-29 2027-9) Calcium (test code 9.4 mg/dL 8.7-10.3 = 63571-5) Protein (test code 6.9 g/dL 6.0-8.5 = 2885-2) Albumin (test code 4.6 g/dL 3.7-4.7 = 1751-7) Globulin, total 2.3 g/dL 1.5-4.5 (test code = 56581-3) Albumin/globulin 2.0 1.2-2.2 ratio (test code = [...] ALT (test code = 9 See_Comment [Automated 1742-6) message] The system which generated this result transmit tom reference range : 0 - 32 IU/L. The reference range was not used to interpret this result as normal/abnormal . MARIELA (test code = Performed at: 01 MARIELA) - [facility] [place], [place] [id number] Director: Froy Lujan MD, Phone: [phone] [facility] with platelet and [id number] 13:04:00 Test Item Value Reference Range Interpretation Comments WBC (test code = 7.0 See_Comment [Automated 6690-2) message] The system which generated this result transmitted reference range : 3.4 - 10.8 x10E3/uL. The reference range was not used to interpret this result as normal/abnormal . RBC (test code = 4.10 See_Comment [Automated 789-8) message] The system which generated this result [...] 0 % Not Estab. (test code = 73939-2) Immature 0.0 See_Comment [Automated granulocytes, message] The absolute (test code = system which 60496-0) generated this result transmitted reference range : 0.0 - 0.1 x10E3/uL. The reference range was not used to interpret this result as normal/abnormal . MARIELA (test code = MARIELA) Performed at: [address] [place] [address] [place] [id number] Director: Froy Lujan MD, Phone: [phone] Lab Interpretation Abnormal (test code = 50135-3) [facility] [id number] 13:04:00 Test Item Value Reference Range Interpretation [...] code = Performed at: 01 MARIELA) - [employer] [id number] Director: Froy Lujan MD, Phone: [phone] [facility], [id number] 13:04:00 Test Item Value Reference Range Interpretation Comments aPTT (test 26 See_Comment This test has n [place] = [place] [address]-2) monitoring unfractionated heparintherapy. aPTT-based ther apeutic ranges for unfractionated heparintherapy have not been establ ished. For general macario delines onHeparin monit oring, refer to the [facility] Directory of Se rvices. [Automated mess age] The system whic h generated this result transmitted ref erence range: 24 - 33 sec. The reference r debbie was not used to interpret this result as normal/abnor mal. MARIELA (test Performed at: 01 - code = MARIELA) [facility] [address] [id number] Director: Froy Lujan MD, Phone: [phone] [facility] function tests, complete (clinic performed) 2022-11-22 18:34:09 [...] [Auto mated message] = 5514) The system [employer] generated this result transmitted ref erence range: [...] See_Comment [Autom ated message] 5507) The system [employer] generated this result transmitted ref erence range: [...] ated message] code = 5528) The system [employer] generated this result transmitted ref erence range: [...] code = 10.05 See_Comment [Auto mated message] 3119) The system [employer] generated this result transmitted ref erence range: 13.04 - 26.04 ml/(min*mmHg). The reference range was not used to interpr et this result as normal/abnormal . DLCO Predicted (test 19.54 code = 5421) DLCO LLN (test code = 13.04 5422) DLCO % Pre of 51.5 % Predicted (test code = 5424) DL/VA Pre (test code = 2.85 See_Comment [Aut omated message] 6130) The system [employer] generated this result transmitted ref erence range: [...] 72.1 % Predicted (test code = 5445) [facility] ([facility] performed) 2022-11-22 18:34:09 [...] code 3.44 See_Comment [Auto mated message] = 7276) The system [employer] generated this result transmitted ref erence range: [...] See_Comment [Autom ated message] 5507) The system [employer] generated this result transmitted ref erence range: [...] ated message] code = 5528) The system [employer] generated this result transmitted ref erence range: [...] See_Comment [Auto mated message] 5423) The system [employer] generated this result transmitted ref erence range: 13.04 - 26.04 ml/(min*mmHg). The reference range was not used to interpr et this result as normal/abnormal . DLCO Predicted (test 19.54 code = 5421) DLCO LLN (test code = 13.04 5422) DLCO % Pre of 51.5 % Predicted (test code = 5424) DL/VA Pre (test code = 2.85 See_Comment [Aut omated message] 5437) The system [employer] generated this result transmitted ref erence range: 2.94 - 5 .57 ml/(min*mmHg*L) . The reference range was not used to interpr et this result as normal/abnormal . DL/VA Predicted (test 4. code = 5435) DL/VA LLN (test code = 2.94 5436) DL/VA % Pre of 66.9 % Predicted (test code = 5438) VA SB Pre (test code = 3.53 L 3.80-6.00 5444) VA SB Predicted (test 4.90 code = 5442) VA SB LLN (test code = 3.80 5443) VA SB % Pre of 72.1 % Predicted (test code = 5445) [facility], [facility] (clinic performed) 2022-11-22 18:34:09 [...] code 3.44 See_Comment [Auto mated message] = 5536) The system [employer] generated this result transmitted ref erence range: [...] See_Comment [Autom ated message] 5507) The system [employer] generated this result transmitted ref erence range: [...] ated message] code = 5528) The system [employer] generated this result transmitted ref erence range: [...] code = 10.05 See_Comment [Auto mated message] 5123) The system [employer] generated this result transmitted ref erence range: 13.04 - 26.04 ml/(min*mmHg). The reference range was not used to interpr et this result as normal/abnormal . DLCO Predicted (test 19.54 code = 5421) DLCO LLN (test code = 13.04 5422) DLCO % Pre of 51.5 % Predicted (test code = 5424) DL/VA Pre (test code = 2.85 See_Comment [Aut omated message] 2088) The system [employer] generated this result transmitted ref erence range: [...] 72.1 % Predicted (test code = 5445) [facility], complete (clinic performed) 2022-11-22 18:34:09 [...] code 3.44 See_Comment [Auto mated message] = 1468) The system [employer] generated this result transmitted ref erence range: [...] See_Comment [Autom ated message] 5507) The system [employer] generated this result transmitted ref erence range: [...] ated message] code = 5528) The system [employer] generated this result transmitted ref erence range: [...] See_Comment [Auto mated message] 5423) The system [employer] generated this result transmitted ref erence range: 13.04 - 26.04 ml/(min*mmHg). The reference range was not used to interpr et this result as normal/abnormal . DLCO Predicted (test 19.54 code = 5421) DLCO LLN (test code = 13.04 5422) DLCO % Pre of 51.5 % Predicted (test code = 5424) DL/VA Pre (test code = 2.85 See_Comment [Aut omated message] 5437) The system [employer] generated this result transmitted ref erence range: [...] 72.1 % Predicted (test code = 5445) [facility] qualitative [id number] 22:40:55 Test Item Value Reference Interpretation Comments Range Interpretation Negative results do (test code = not preclude COVID-19 9454480) infection and should not be used asthe sole basis for treatment or other patient management decisions. Negativeresults must be combined with clinical observations, patient history, andepidemiological information. COVID-19 Not-Detected Not-Detected DISCLAIMER:This qualitative RT-PCR test was result (test code performed using = 52449-3) the Alinity m SARS-CoV-2 Assa y ([employer], [employer]). This assay is available for i n vitro diagnosti c use under Food and Drug Administration (FDA) Emergency Use Authorizati on (EUA) and has been verified f or clinical use by the [facility]. Information on the FDA policy for diagnostic tests for coronavirus disease- 2019 i s available at:https://www. fd a.gov/medical-d ev ices/emergency- si tuations-medica l- devices/faqs-di ag nostic-testing- sa rs-cov-2It is critical that health care providers and patients review the applicable fact sheet(s) i n interpreting or understanding t he test results th at are available upon request.METHODO LO GY:This assay utilizes Horse[employer] ts for nucleic aci d extraction, amplification, and real-time reverse senior program manager polymerase rancho n reaction. COVID-19 See link below for PDF Case Number: qualitative RT-PCR Lab Report [id number] PDF (test code = 7070) [facility] qualitative [id number] 22:40:55 Test Item Value Reference Interpretation Comments Range Interpretation Negative results do (test code = not preclude COVID-19 0371579) infection and should not be used asthe sole basis for treatment or other patient management decisions. Negativeresults must be combined with clinical observations, patient history, andepidemiological information. COVID-19 Not-Detected Not-Detected DISCLAIMER:This qualitative RT-PCR test was result (test code performed using = 15429-5) the Tamra m SARS-CoV-2 Assa y ([employer]). This assay is available for i n vitro diagnosti c use under Food and Drug Administration (FDA) Emergency Use Authorizati on (EUA) and has been verified f or clinical use by the [facility]. Information on the FDA [...] aci d extraction, amplification, and real-time reverse senior program manager polymerase rancho n reaction. COVID-19 See link below for PDF Case Number: qualitative RT-PCR Lab Report [id number] 714 PDF (test code = 7070) [place] [address] qualitative [id number] 22:40:55 Test Item Value Reference Interpretation Comments Range Interpretation Negative results do (test code = not preclude COVID-19 9899822) infection and should not be used asthe sole basis for treatment or other patient management decisions. Negativeresults must be combined with clinical observations, patient history, andepidemiological information. COVID-19 Not-Detected Not-Detected DISCLAIMER:This qualitative RT-PCR test was result (test code performed using = 53535-9) the Alinizoomsquare m SARS-CoV-2 Assa y ([employer]). This assay is available for i n vitro diagnosti c use under Food and Drug Administration (FDA) Emergency Use Authorizati on (EUA) and has been verified f or clinical use by the [facility]. Information on the FDA policy for diagnostic tests for coronavirus disease- 2019 i s available at:https://www. fd a.gov/medical-d ev ices/emergency- si tuations-medica l- devices/faqs-di ag nostic-testing- sa rs-cov-2It is critical that health care providers and patients review the applicable fact sheet(s) i n interpreting or understanding t he test results th at are available upon request.METHODO MURTAZA GY:This assay utilizes reagen ts for nucleic aci d extraction, amplification, and real-time reverse senior program manager polymerase rancho n reaction. COVID-19 See link below for PDF Case Number: qualitative RT-PCR Lab Report [id number] 714 PDF (test code = 7070) [place] [address] qualitative [id number] 22:40:55 Test Item Value Reference Interpretation Comments Range Interpretation Negative results do (test code = not preclude COVID-19 7514529) infection and should not be used asthe sole basis for treatment or other patient management decisions. Negativeresults must be combined with clinical observations, patient history, andepidemiological information. COVID-19 Not-Detected Not-Detected DISCLAIMER:This qualitative RT-PCR test was result (test code performed using = 56239-8) the Tamra brown SARS-CoV-2 [employer] diamond ([employer]). This assay is available for i n vitro diagnosti c use under Food and Drug Administration (FDA) Emergency Use Authorizati on (EUA) and has been verified f or clinical use by the [facility]. Information on the FDA policy for diagnostic tests for coronavirus disease- 2019 i s available at:https://www. fd a.gov/medical-d ev ices/emergency- si tuations-medica l- devices/faqs-di ag nostic-testing- sa rs-cov-2It is critical that health care providers and patients review the applicable fact sheet(s) i n interpreting or understanding t he test results th at are available upon request.METHODO LO GY:This assay utilizes [employer] ts for nucleic aci d extraction, amplification, and real-time reverse senior program manager polymerase rancho n reaction. COVID-19 See link below for PDF Case Number: qualitative RT-PCR Lab Report [id number] 714 PDF (test code = 7070) [facility] [Presence] in Respiratory specimen by SHARIF with probe [id number] 16:40:55 Test Item Value Reference Range Interpretation Comments SARS-CoV-2 (COVID-19) RNA Not detected [Presence] in Respiratory specimen by SHARIF with probe detection (test code = 70833-0) Whether patient is employed in a Unknown healthcare setting (test code = 56608-5) Whether the patient has symptoms Unknown related to condition of interest (test code = 76233-3) Whether the patient was Unknown hospitalized for condition of interest (test code = 26773-8) Whether the patient was admitted Unknown to intensive care unit (ICU) for condition of interest (test code = 28854-5) Whether patient resides in a Unknown congregate care setting (test code = 52214-2) status (test code = Unknown 78661-2) Date and time of symptom onset Unknown (test code = 02888-7) [facility] With LDL/HDL [id number] 00:00:00 Test Item Value Reference Range Interpretation Comments Cholesterol, Total 229 mg/dL See_Comment H [Automat ed message] (test code = 2093-3) The s tem which generated this result transmitted ref erence range: 100-199 mg/dL. The reference r debbie was not used to interpret this result as normal/abnor mal. Triglycerides (test 200 mg/dL See_Comment H [Automa tom message] code = 2571-8) The system [employer] generated this result transmitted ref erence range: 0-149 mg /dL. The reference r debbie was not used to interpret this result as normal/abnor mal. HDL Cholesterol (test 56 mg/dL See_Comment [Auto mated message] code = 2085-9) The system [employer] generated this result transmitted ref erence range: >39 mg/d L. The reference range was not used to int erpret this result as normal/abnormal . Comp. Metabolic Panel (14) ([facility])2022-05-16 00:00:00 Test Item Value Reference Range Interpretation Comments Glucose (test code = 94 mg/dL See_Comment [Autom ated message] 8195-7) The system [facility] generated this result transmitted ref erence range: 65-99 mg /dL. The reference r debbie was not used to interpret this result as normal/abnor mal. BUN (test code = 18 mg/dL See_Comment [Automated message] 3094-0) The system [employer] generated this result transmitted ref erence range: 8-27 mg/ dL. The reference r debbie was not used to interpret this result as normal/abnor mal. Creatinine (test code 0.81 mg/dL See_Comment [Auto mated message] = 2160-0) The system [employer] generated this result transmitted ref erence range: 0.57-1.0 0 mg/dL. The refe rence range was not u sed to interpret this result as normal/abnor mal. BUN/Creatinine Ratio 22 12-28 (test code = 3097-3) Sodium (test code = 141 mmol/L See_Comment [Automa tom message] 1261-2) The system [employer] generated this result transmitted ref erence range: 134-144 mmol/L. The ref erence range was not u sed to interpret this result as normal/abnor mal. Potassium (test code = 3.8 mmol/L See_Comment [Aut omated message] 1693-3) The system [facility] generated this result transmitted ref erence range: 3.5-5.2 mmol/L. The ref erence range was not u sed to interpret this result as normal/abnor mal. Chloride (test code = 104 mmol/L See_Comment [Auto mated message] 2074-0) The system [facility] generated this result transmitted ref erence range: 96-106 m mol/L. The reference r debbie was not used to interpret this result as normal/abnor mal. Carbon Dioxide, Total 23 mmol/L See_Comment [Auto mated message] (test code = 2028-06) The [facility] tem which generated this result transmitted ref erence range: 20-29 mm ol/L. The reference r debbie was not used to interpret this result as normal/abnor mal. Calcium (test code = 9.5 mg/dL See_Comment [Autom ated message] 54409-6) The system [facility] generated this result transmitted ref erence range: 8.7-10.3 mg/dL. The refe rence range was not u sed to interpret this result as normal/abnor mal. Protein, Total (test 6.6 g/dL See_Comment [Autom ated message] code = 2885-2) The system [facility] generated this result transmitted ref erence range: 6.0-8.5 g/dL. The reference r debbie was not used to interpret this result as normal/abnor mal. Albumin (test code = 4.4 g/dL See_Comment [Autom ated message] 2288-7) The system [facility] generated this result transmitted ref erence range: 3.7-4.7 g/dL. The reference r debbie was not used to interpret this result as normal/abnor mal. Globulin, Total (test 2.2 g/dL See_Comment [Auto mated message] code = 36259-0) The system [facility] generated this result transmitted ref erence range: 1.5-4.5 g/dL. The reference r debbie was not used to interpret this result as normal/abnor mal. A/G Ratio (test code = 2.0 1.2-2.2 1759-0) Bilirubin, Total (test <0.2 mg/dL See_Comment [Aut omated message] code = 1974-2) The system [facility] generated this result transmitted ref erence [...] [Auto mated message] = 1920-8) The system [facility] generated this result transmitted ref erence range: 0-40 IU/ L. The reference range was not used to int erpret this result as normal/abnormal . ALT (SGPT) (test code 10 IU/L See_Comment [Auto mated message] = 1742-6) The system [facility] generated this result transmitted ref erence range: 0-32 IU/ L. The reference range was not used to int erpret this result as normal/abnormal . Uric Acid, [id number] 00:00:00 Test Item Value Reference Range Interpretation Comments Uric Acid (test 4.0 mg/dL See_Comment [Automated message] The code = 3084-1) system which generated this result tra nsmitted reference range : 3.1-7.9 mg/dL. The refe rence range was not u sed to interpret this result as normal/abnormal . CBC With Differential/[id number] 00:00:00 Test Item Value Reference Range Interpretation Comments WBC (test code = 6.6 x10E3/uL See_Comment [Automated 0790-2) message] The sy stem which generated this result transmitted reference range : 3.4-10.8 x10E3/ uL. The reference r debbie was not used to interpret this result as normal/abnormal . RBC (test code = 4.01 x10E6/uL See_Comment [Automate d 619-8) message] The sy stem which generated this [...] % Not Estab. % (test code = 51469-2) Immature Grans (Abs) 0.0 x10E3/uL See_Comment [Autom ated (test code = 81152-4) messag e] The system which generated this result transmitted reference range : 0.0-0.1 x10E3/u L. The reference r debbie was not used to interpret this result as normal/abnormal . NRBC (test code = 93637-4) Hematology Comments: (test code = 01440-5) TSH reflex to [id number] 00:00:00 Test Item Value Reference Range Interpretation Comments TSH (test code = 2.180 uIU/mL See_Comment [Automated message] The 22508-9) system which ge nerated this result tra nsmitted reference range : 0.450-4.500 uIU /mL. The reference range was not used to interpr et this result as normal/abnormal .
[2023-08-28] MEDS ORDERED: FLEET ENEMA ADULT PR ONE (11:49)
[2023-08-28] MEDS ORDERED: LACTULOSE 20 GM/30 ML UCUP ONE (11:49)
[2023-08-28 12:20] LABS: Absolute Lymphocytes (CBC) 1.3 K/uL (0.7-4.9); Hematocrit 40.2 % (36.0-45.0); MCV 98.4 fL (80-100); MPV 9.5 fL (7.6-11.3); Platelets 206 thou/uL (152-406); RBC Red Blood Cell Count 4.08 M/uL (3.86-4.86)
[2023-08-28 12:28] LABS: Albumin 3.5 g/dL (3.4-5.0); Bilirubin Total 0.6 mg/dL (0.2-1.0); Potassium 3.1 mEq/L (3.5-5.1); Protein, Total 7.5 g/dL (6.4-8.2)
--- NOTE | 2023-08-28 13:24 | RAD REPORT ---
EXAM DESCRIPTION: CTAbdomen Pelvis W Contrast - 08/28/2023 12:36 pm CLINICAL HISTORY: Abdominal pain. CONSTIPATION COMPARISON: CT ABD PELVIS W CONTRAST dated 08/05/2012 TECHNIQUE: Biphasic CT imaging of the abdomen and pelvis was performed with 100 ml non-ionic IV cont rast. All CT scans are performed using dose optimization technique as appropriate and may include automated exposure control or mA/KV adjustment according to patient size. FINDINGS: The inferior lung bases are emphysematous.Cholecystectomy. The liver, spleen, pancreas, adrenal glands and kidneys are within normal limits. No bowel obstruction, free air, free fluid or abscess. There is prominent fecal retention in the colo n. Mild stool distention in the rectum is seen with mild reticulation of the perirectal fat. The appe ndix is not identified as a discrete structure, however, no secondary findings of appendicitis are id entified. Moderate aortoiliac atherosclerotic calcifications. No evidence of significant lymphadenop athy. Moderate lumbosacral degenerative changes. IMPRESSION: Prominent colonic fecal retention is seen particularly in the rectum. There is mild yumiko rectal inflammation which may indicate stercoral colitis.
--- NOTE | 2023-08-28 14:25 | ER ---
Nurse's Notes [facility] Name: Shwetha Chirinos Age: 78 yrs Sex: Female : 1945 Arrival Date: 08/28/2023 Time: 10:57 Bed 5 Private MD: Lonnie Gonzales Diagnosis: Constipation, unspecified;Hypokalemia Presentation: 08/28 11:07 Chief complaint: Patient states: is impacted, last BM was Saturday , called DR. Gonzales and iw has appt at 2 pm but he told me to come to ER. Coronavirus screen: At this time, the client does not indicate any symptoms associated with coronavirus-19. Ebola Screen: Patient negative for fever greater than or equal to 101.5 degrees Fahrenheit, and additional compatible Ebola Virus Disease symptoms Patient denies exposure to infectious person. Patient denies travel to an Ebola-affected area in the 21 days before illness onset. No symptoms or risks identified at this time. Initial Sepsis Screen: Does the patient meet any 2 criteria? No. Patient's initial sepsis screen is negative. Does the patient have a suspected source of infection? No. Patient's initial sepsis screen is negative. Risk Assessment: Do you want to hurt yourself or someone else? Patient reports no desire to harm self or others. Onset of symptoms was August 25, 2023. 11:07 Method Of Arrival: Wheelchair 11:07 Acuity: TAYLOR 3 Triage Assessment: 12:04 General: Appears in no apparent distress. comfortable, Behavior is calm, cooperative. cm10 Pain: Complains of pain in abdomen. Neuro: No deficits noted. Prasad Agitation-Sedation Scale (RASS): 0 - Alert and Calm Level of Consciousness is awake, alert, obeys commands, Oriented to person, place, time, situation. Cardiovascular: No deficits noted. Patient's skin is warm and dry. Respiratory: No deficits noted. Airway is patent Respiratory effort is even, unlabored, Respiratory pattern is regular, symmetrical. GI: No deficits noted. Reports constipation. : No deficits noted. No signs and/or symptoms were reported regarding the genitourinary system. Derm: No deficits noted. No signs and/or symptoms reported regarding the dermatologic system. Skin is intact, Skin is pink, warm \T\ dry. Musculoskeletal: No deficits noted. No signs and/or symptoms reported regarding the musculoskeletal system. Range of motion: intact in all extremities. Historical: - Allergies: 11:09 Codeine; iw - Home Meds: 11: rivastigmine tartrate 1.5 mg Oral cap 1 cap 2 times per day [Active]; iw - PMHx: 11:09 Hypertension; COPD; iw - PSHx: 11:09 hysterectomy; Cholecystectomy; iw - Immunization history:: Adult Immunizations unknown. - Social history:: Smoking status: unknown. Screenin:05 [facility] ED Fall Risk Assessment (Adult) History of falling in the last 3 months, cm10 including since admission No falls in past 3 months (0 pts) Confusion or Disorientation No (0 pts) Intoxicated or Sedated No (0 pts) Impaired Gait No (0 pts) Mobility Assist Device Used No (0 pt) Altered Elimination No (0 pt) Score/Fall Risk Level 0 - 2 = Low Risk Oriented to surroundings, Maintained a safe environment, Hourly rounding (assess needs \T\ fall precautionary measures) done. Abuse screen: Denies threats or abuse. Denies injuries from another. Nutritional screening: No deficits noted. Tuberculosis screening: No symptoms or risk factors identified. Assessment: 12:06 Reassessment: Pt noted to have BM. cm10 13:41 Reassessment: Pt noted to have large BM. cm10 Vital Signs: 11:07 BP 100 / 56; Pulse 93; Resp 16; Temp 98.4; Pulse Ox 94% on R/A; Weight 54.43 kg; Height iw 5 ft. 5 in. ; Pain 10/10; 14:52 BP 100 / 66; Pulse 92; Resp 18; Pulse Ox 98% on R/A; cm10 11:07 Body Mass Index 19.97 (54.43 kg, 165.1 cm) iw 11:07 Pain Scale: Adult iw ED Course: 11:00 Patient arrived in ED. gm2 11:01 Lonnie Gonzales DO is Private Physician. gm2 11:09 Triage completed. iw 11:09 Arm band placed on. iw 11:10 Miki Schultz MD is Attending Physician. rt 12:04 Magnesium Sent. cm10 12:04 CMP Sent. cm10 12:04 CBC with Diff Sent. cm10 12:04 Initial lab(s) drawn, by me, sent to lab. Inserted saline lock: 22 gauge in right cm10 antecubital area, using aseptic technique. Blood collected. 12:05 Patient has correct armband on for positive identification. Placed in gown. Bed in low cm10 position. Call light in reach. Side rails up X 1. Provided Education on: ER process and procedures. . Pulse ox on. NIBP on. Warm blanket given. 12:36 CT Abd/Pelvis - IV Contrast Only In Process Unspecified. EDMS 14:24 Lonnie Gonzales DO is Referral Physician. rt 14:53 No provider procedures requiring assistance completed. IV discontinued, intact, cm10 bleeding controlled, No redness/swelling at site. Pressure dressing applied. Administered Medications: 12:04 Drug: Lactulose PO 30 grams 45 ml PO once Volume: 45 ml; Route: PO; cm10 13:42 Follow up: Response: No adverse reaction cm10 13:42 Not Given (Not neededd): fleet ml NC once; may repeat once cm10 Medication: 12:16 VIS not applicable for this client. cm10 Outcome: 14:25 Discharge ordered by MD. rt 14:53 Discharged to home via wheelchair, with friend, cm10 14:53 Condition: good 14:53 Discharge instructions given to patient, Instructed on discharge instructions, follow up and referral plans. medication usage, Demonstrated understanding of instructions, follow-up care, medications, Prescriptions given X 2, 14:53 Patient left the ED. cm10 Signatures: Dispatcher [employer] EDNanci Moore, TORRES MACDONALD iw Miki Schultz MD MD rt Tata Blanco RN RN cm10 Puja Bo gm2
--- NOTE | 2023-08-28 14:25 | EDPHYS ---
Physician Documentation [facility] Name: Shwetha Chirinos Age: 78 yrs Sex: Female : 1945 Arrival Date: 08/28/2023 Time: 10:57 Bed 5 Private MD: Lonnie Gonzales ED Physician Miki Schultz HPI: 08/28 11:33 This 78 yrs old Female presents to ER via Wheelchair with complaints of Constipation. rt 11:33 Patient presents to the ED with constipation. Patient was seen in the ED little over 1 rt week ago, did have a bowel movement after going home. Still had a small mount of water, no formed bowel movement since then. Denies any abdominal pain. Does report pain to the rectum at the area that she is straining and. Was sent by PCP for further eval. Symptoms are moderate severity, no other aggravating or alleviating factors. Historical: - Allergies: 11:09 Codeine; iw - Home Meds: 11:09 rivastigmine tartrate 1.5 mg Oral cap 1 cap 2 times per day [Active]; iw - PMHx: 11:09 Hypertension; COPD; iw - PSHx: 11:09 hysterectomy; Cholecystectomy; iw - Immunization history:: Adult Immunizations unknown. - Social history:: Smoking status: unknown. ROS: 11:33 Constitutional: Negative for fever, chills, and weight loss, Cardiovascular: Negative rt for chest pain, palpitations, and edema, Respiratory: Negative for shortness of breath, cough, wheezing, and pleuritic chest pain, MS/Extremity: Negative for injury and deformity, Skin: Negative for injury, rash, and discoloration, Neuro: Negative for headache, weakness, numbness, tingling, and seizure, Psych: Negative for depression, anxiety, suicide ideation, homicidal ideation, and hallucinations, 11:33 Abdomen/GI: Positive for constipation, Negative for abdominal pain, Exam: 11:33 Constitutional: This is a well developed, well nourished patient who is awake, alert, rt and in no acute distress. Head/Face: Normocephalic, atraumatic. Chest/axilla: Normal chest wall appearance and motion. Nontender with no deformity. No lesions are appreciated. Cardiovascular: Regular rate and rhythm with a normal S1 and S2. No gallops, murmurs, or rubs. Normal PMI, no JVD. No pulse deficits. Respiratory: Lungs have equal breath sounds bilaterally, clear to auscultation and percussion. No rales, rhonchi or wheezes noted. No increased work of breathing, no retractions or nasal flaring. Abdomen/GI: Soft, non-tender, with normal bowel sounds. No distension or tympany. No guarding or rebound. No evidence of tenderness throughout. Back: No spinal tenderness. No costovertebral tenderness. Full range of motion. Skin: Warm, dry with normal turgor. Normal color with no rashes, no lesions, and no evidence of cellulitis. MS/ Extremity: Pulses equal, no cyanosis. Neurovascular intact. Full, normal range of motion. Neuro: Awake and alert, GCS 15, oriented to person, place, time, and situation. Cranial nerves II-XII grossly intact. Motor strength 5/5 in all extremities. Sensory grossly intact. Cerebellar exam normal. Normal gait. Psych: Awake, alert, with orientation to person, place and time. Behavior, mood, and affect are within normal limits. Vital Signs: 11:07 BP 100 / 56; Pulse 93; Resp 16; Temp 98.4; Pulse Ox 94% on R/A; Weight 54.43 kg; Height iw 5 ft. 5 in. ; Pain 10/10; 14:52 BP 100 / 66; Pulse 92; Resp 18; Pulse Ox 98% on R/A; cm10 11:07 Body Mass Index 19.97 (54.43 kg, 165.1 cm) iw 11:07 Pain Scale: Adult iw MDM: 11:13 Patient medically screened. rt 15:59 Differential Diagnosis Constipation, proctitis, bowel obstruction. Data reviewed: vital rt signs, nurses notes, lab test result(s), radiologic studies. I considered the following discharge prescriptions or medication management in the emergency department Medications were administered in the Emergency Department. See MAR. Independent interpretation of the following test(s) in the Emergency Department CT Scan: My interpretation is No bowel obstruction some interpretation of CT scan images. Care significantly affected by the following chronic conditions: Hypertension. Counseling: I had a detailed discussion with the patient and/or guardian regarding the historical points, exam findings, and any diagnostic results supporting the discharge/admit diagnosis, lab results, radiology results, the need for outpatient follow up, to return to the emergency department if symptoms worsen or persist or if there are any questions or concerns that arise at home. Response to treatment: the patient's symptoms have resolved after treatment, Patient had large bowel movement in the ED with significant improvement of symptoms. 08/28 11:24 Order name: CBC with Diff; Complete Time: 12:28 rt 08/28 11:24 Order name: CMP; Complete Time: 12:28 rt 08/28 11:24 Order name: Magnesium; Complete Time: 12:28 rt 08/28 11:24 Order name: CT Abd/Pelvis - IV Contrast Only; Complete Time: 13:29 rt Administered Medications: 12:04 Drug: Lactulose PO 30 grams 45 ml PO once Volume: 45 ml; Route: PO; cm10 13:42 Follow up: Response: No adverse reaction cm10 13:42 Not Given (Not neededd): fleet [id number] ml LA once; may repeat once cm10 Disposition Summary: 08/28/23 14:25 Discharge Ordered Notes: Location: Home rt Problem: new rt Symptoms: are resolved rt Condition: Stable rt Diagnosis - Constipation, unspecified rt - Hypokalemia rt Followup: rt - With: Lonnie Gonzales DO - When: 2 - 3 days - Reason: Discharge Instructions: - Discharge Summary Sheet rt - Constipation, Adult rt - Hypokalemia rt Forms: - Medication Reconciliation Form rt - Thank You Letter rt - Antibiotic Education rt - Prescription Opioid Use rt - Patient Portal Instructions rt - Leadership Thank You Letter rt Prescriptions: - Potassium Chloride 20 meq Oral Packet - take 1 packet ORAL route once daily 1 packet in 6 (six) ounces of water or rt juice; Take after meal; 7 packet; Refills: 0, Product Selection Permitted - Lactulose 10 gram/15 mL Oral Solution - take 30 milliliters ORAL route once daily; 300 milliliter; Refills: 0, Product rt Selection Permitted Signatures: Dispatcher [employer] Nanci Locke RN RN iw Miki Schultz MD MD rt Tata Blanco RN RN cm10
[2023-08-28 15:19] VITALS: TEMP 98.4
[2023-08-28 15:20] VITALS: BP 100/66; O2SAT 98
== END 2023-08-28 14:53 | disposition home or self-care (01) ==
LOC: ER 10:57
DX: K59.00 Constipation, unspecified (principal); E87.6 Hypokalemia; J44.9 Chronic obstructive pulmonary disease, unspecified; I10 Essential (primary) hypertension; Z88.5 Allergy status to narcotic agent
CPT/HCPCS: 85025; 36415; 83735; 80053; 74177; 99284; Q9967

== ENCOUNTER 2023-09-03 13:01 | Emergency (ER) | payer OTHER, MEDICARE ==
--- OUTSIDE RECORDS SUMMARY | 2023-09-03 13:11 | XMS REPORT | Continuity of Care Document ---
:1945 Author Organization [facility] t Address [address] [facility] [address] [place] [address] Care Team Providers Name Role Phone Umair Ferrera MD, Jony Knight Primary Care Physician [phone] Lonnie Gonzales Attending Clinician Unavailable LAURA HARVEY [...] MACDONALD, Lesly Attending Clinician Unavailable Doctor Unassigned, [place] Attending Clinician Unavailable 1, [facility] Bed Attending Clinician Unavailable Tejal Vital MD Attending Clinician [phone] Chris VAZ, Ariana Luna Attending Clinician [...] Expiration Date S abdulkadir MEDICARE PART A [id number] 2012 \T\ B 00:00:00 [place] [id number] 2019 HEALTHCARE 00:00:00 MEDICARE SUPPLEMENT MEDICARE [facility] [id number] 2012 Common 00:00:00 [facility] AARP C1 [id number] 2018 Common 00:00:00 [facility] Problems Condition Condition Condition Status Onset [...] (gastroeso (gastroeso it y of phageal phageal [place] reflux reflux Medical disease) disease) Branch [id number] Dementia Problem Commo n without Spirit behavioral - [facility] disturb[facility] unspecifie Medica l d dementia Center type [id number] Daytime Problem Comm on 00 somnolence Spirit - [facility] [id number] Memory Problem Common change Spirit - [facility] Crohns Crohn''s Problem Common disease disease Spirit with [facility] d Center gastrointe stinal tract location [id number] Age Problem Common related Spirit osteoporos - [facility] al fracture presence [id number] Chronic Problem Common obstructiv [facility] e - [facility] pulmonary [facility] unspecifie Medica l d COPD Center type Mental Mental Problem Common retardatio deficiency Sp ilia n - [facility] [id number] GERD Problem Common without Spirit esophagiti - [facility] s [facility] [id number] Basal cell Problem Co mmon carcinoma [facility] of nose - [facility] [id number] Mixed Problem Common hyperlipid Spirit emia [facility] [id number] Essential Problem Comm on (primary) Spirit hypertensi - [facility] on [facility] Allergies, Adverse Reactions, Alerts Allergy [...] Codeine Active dizziness Commo n Spirit - [facility] Social History Social Habit Start Date Stop Date Quantity Comments Source Gender identity [facility] [place] [facility] Sexual orientation [facility] of [facility] History of Tobacco Common Spirit - Use [facility] Sex Assigned At Common Sp ilia - [facility] Alcohol intake 2023-07-10 2023-07-10 Current Worship 00:00:00 00:00:00 non-drinker of Hospital alcohol (finding) History of Social 2023-07-10 2023-07-[address] function 00:00:00 00:00:00 Hospital Exposure to 2022-10-21 2022-10-31 Not sure University of SARS-CoV-2 (event) 00:00:00 13:47:00 [facility] Cigarettes smoked 2021-10-25 2021-10-[address] current (pack per 00:00:00 00:00:00 Hospita l day) - Reported Cigarette 2021-10-25 2021-10-25 Worship pack-years 00:00:00 00:00:00 Hospital Tobacco use and 2021-10-25 2021-10-25 Smokeless Worship exposure 00:00:00 00:00:00 tobacco non-user Hospital Alcohol Comment 2020-05-23 2020-05-23 seldom Universit y of 00:00:00 00:00:00 [place] [facility] History [facility] 2020-05-23 2020-05-23 99 University o f Alcohol Frequency 00:00:00 00:00:00 [facility] edical Branch History SDWA 2020-05-23 2020-05-23 99 University o f Alcohol Std Drinks 00:00:00 00:00:00 [place] [facility] History [facility] 2020-05-23 2020-05-23 99 [place] o f Alcohol Binge 00:00:00 00:00:00 [place] [facility] al [facility] Smoking Status Start Date [...] ORAL) 10:53: daily. Hospita 18 l omeprazole 2022-0 Yes 40mg QD Take 1 Metho di (PriLOSEC) 9-[address] 40 MG 10:53: (40 mg Hospita capsule 18 total) by l mouth daily. acetaminoph 2023-0 Yes QD Take by Met hodi en (TYLENOL 9-[address] ORAL) 10:53: daily. Hospita 18 l omeprazole 3-0 Yes 40mg QD Take 1 Metho di (PriLOSEC) 9-[address] 40 MG 10:53: (40 mg Hospita capsule 18 total) by l mouth daily. acetaminoph 3-0 Yes QD Take by Met hodi en (TYLENOL 9-[address] ORAL) 10:53: daily. Hospita 18 l meloxicam 2022- No [id number] 15mg QD Take 1 Methodi (MOBIC) 15 8-10 09-10 tablet (15 st mg tablet 00:00: 04:59 mg total) Ho spita 00 :00 by mouth l daily for 30 days. meloxicam 2022-0 2022- No [id number] 15mg QD Take 1 Methodi (MOBIC) 15 8-10 09-10 tablet (15 st mg tablet 00:00: 04:59 mg total) Ho spita 00 :00 by mouth l daily for 30 days. meloxicam 2022-0 2022- No [id number] 15mg QD Take 1 Methodi (MOBIC) 15 [...] MG MG 00:00: 5 MG 00 fluticasone 2022-0 Yes [id number] 2{spray Use 2 Univers propionate 7-06 } Sprays in ity of 50 00:00: each [place] mcg/actuati 00 nostril in Me dical on nasal the Branch spray morning. benzonatate 2022-0 Yes [id number] 100mg Take 1 Univers (TESSALON 7-06 capsule by ity of PERLWaveRx) 100 00:00: mouth [place] mg capsule 00 every 8 Medica l (eight) Branch hours as needed for Cough. fluticasone 0 Yes [id number] 2{spray Use 2 Univers propionate 7-06 } Sprays in ity of 50 00:00: each [place] mcg/actuati 00 nostril in Me dical on nasal the Branch spray morning. benzonatate 2022-0 Yes [id number] 100mg Take 1 Univers (TESSALON 7-06 capsule by ity of PERL) 100 00:00: mouth [place] mg capsule 00 every 8 Medica l (eight) Branch hours as needed for Cough. fluticasone 2022-0 Yes [id number] 2{spray Use 2 Univers propionate 7-06 } Sprays in ity of 50 00:00: each [place] mcg/actuati 00 nostril in Me dical on nasal the Branch spray morning. benzonatate 2022-0 Yes [id number] 100mg Take 1 Univers (TESSALON 7-06 capsule by ity PERL) 100 00:00: mouth [place] mg capsule 00 every 8 Medica l (eight) Branch hours as needed for Cough. omeprazole 2022-0 Yes 40mg QD Take 1 Metho di (PriLOSEC) 6-[address] 40 MG 12:05: (40 mg Hospita capsule 51 total) by l mouth daily. acetaminoph 2022-0 Yes QD Take by Met miriam en (TYLENOL 6-[address] ORAL) 12:05: daily. Hospita 51 l fluticasone 2022-0 3- No QD Inhale 1 M ethodi -umeclidin- 6-20 -19 inhalation s t vilanter 00:00: 04:59 s once Hospit a (TRELEGY 00 :00 daily for l ELLIPTA) 90 days. 200-62.5-25 mcg blister with device fluticasone 2022-0 2022- No QD Inhale 1 M ethodi -umeclidin- 6-20 07-09 inhalation s t vilanter 00:00: 04:59 s once Hospit a (TRELEGY 00 :00 daily for l ELLIPTA) 90 days. 200-62.5-25 mcg blister with device fluticasone 2022-0 2022- No QD Inhale 1 M ethodi -umeclidin- 6-20 07-09 inhalation s t vilanter 00:00: 04:59 s once Hospit a (TRELEGY 00 :00 daily for l ELLIPTA) 90 days. 200-62.5-25 mcg blister with device fluticasone 2022-0 2022- No QD Inhale 1 M ethodi -umeclidin- 6-07-09 inhalation s t vilanter 00:00: 04:59 s once Hospit a (TRELEGY 00 :00 daily for l ELLIPTA) 90 days. 200-62.5-25 mcg blister with device omeprazole 2022-0 Yes 40mg QD Take 1 Metho di (PriLOSEC) [address] 40 MG 11:08: (40 mg Hospita capsule 38 total) by l mouth daily. acetaminoph 2022-0 Yes QD Take by Met hodi en (TYLENOL 5-[address] ORAL) 11:08: daily. Hospita 38 l fluticasone 2022-0 2022- No QD Inhale 1 M ethodi furoate-ko 12-27 inhalation s t anteroL 00:00: 00:00 s daily. Hospi ta (Breo 00 :00 l Ellipta) 200-25 mcg/dose blister with device powder for inhalation levalbutero 2022-0 2022- No 2{puff} Q6H Inhale 2 Methodi l (Xopenex 12-[address] HFA) 45 00:00: 00:00 every 6 Hospit a mcg/actuati 00 :00 (six) l on inhaler hours as needed for wheezing. fluticasone 2022-2022- No QD Inhale 1 M ethodi furoate-ko - 05-17 inhalation s t anteroL 00:00: 00:00 [...] No QD Inhale 1 M ethodi furoate-ko - 05-17 inhalation s t anteroL 00:00: 00:00 s daily. Hospi ta (Breo 00 :00 l Ellipta) 200-25 mcg/dose blister with device powder for inhalation levalbutero 2022-0 2022- No 2{puff} Q6H Inhale 2 Methodi l (Xopenex 3-09 05-[address] HFA) 45 00:00: 00:00 every 6 Hospit a mcg/actuati 00 :00 (six) l on inhaler hours as needed for wheezing. fluticasone 2022-2022- No QD Inhale 1 M ethodi furoate-ko [...] for wheezing. cyclobenzap 2023-0 2023- No 5mg Q.[id number] Take 1 Methodi rine 2-15 01- [id number] tablet (5 st (FLEXERIL) 00:00: 04:59 3D mg total) H ospita 5 mg tablet 00 :00 by mouth 3 l (three) times a day as needed for muscle spasms for up to 30 days. cyclobenzap 2023-0 2023- No 5mg Q.[id number] Take 1 Methodi rine 2-01-18 [id number] tablet (5 st (FLEXERIL) 00:00: 04:59 3D mg total) H ospita 5 mg tablet 00 :00 by mouth 3 l (three) times a day as needed for muscle spasms for up to 30 days. cyclobenzap 2023-0 2023- No 5mg Q.[id number] Take 1 Methodi rine 2-15 01- [id number] tablet (5 st (FLEXERIL) 00:00: 04:59 3D mg total) H ospita 5 mg tablet 00 :00 by mouth 3 l (three) times a day as needed for muscle spasms for up to 30 days. cyclobenzap 2023-0 2023- No 5mg Q.[id number] Take 1 Methodi rine 2-15 01- [id number] tablet (5 st (FLEXERIL) 00:00: 04:59 3D mg total) H ospita 5 mg tablet 00 :00 by mouth 3 l (three) times a day as needed for muscle spasms for up to 30 days. cyclobenzap 2023-0 2023- No 5mg Q.[id number] Take 1 Methodi rine 2-15 01- [id number] tablet (5 st (FLEXERIL) 00:00: 04:59 3D [...] 2022- No Crestor 40 Methodi n (CRESTOR) 2- 02-[address] 40 MG 15:53: [...] No Crestor 40 Methodi n (CRESTOR) 11-[address] 40 MG 15:53: 00:00 [...] ELLIPTA) 200-62.5-25 mcg blister with device fluticasone Yes QD Inhale 1 Me thodi [...] blister with device ipratropium 2023-0 2023- No [id number] 3mL Q.25D Take 3 mL Methodi -albuteroL 2- 03-05 by ([email or web address]) 00:00: 05:59 nebulizati H ospita 0.5-2.5 00 :00 on 4 l mg/3 mL (four) nebulizer times a day for 30 days. ipratropium 2023-0 2023- No [id number] 3mL Q.25D Take 3 mL Methodi -albuteroL 2- 03-05 by ([email or web address]) 00:00: 05:59 nebulizati H ospita 0.5-2.5 00 :00 on 4 l mg/3 mL (four) nebulizer times a day for 30 days. ipratropium 2023-0 2023- No [id number] 3mL Q.25D Take 3 mL Methodi -albuteroL 2- 03-05 by ([employer]) 00:00: 05:59 nebulizati H ospita 0.5-2.5 00 :00 on 4 l mg/3 mL (four) nebulizer times a day for 30 days. ipratropium 2023-0 2023- No [id number] 3mL Q.25D Take 3 mL Methodi -albuteroL 212-23 by ([email or web address]) 00:00: 05:59 nebulizati H ospita 0.5-2.5 00 :00 on 4 l mg/3 mL (four) nebulizer times a day for 30 days. ipratropium 2023-0 2023- No [id number] 3mL Q.25D Take 3 mL Methodi -albuteroL 11-22 by ([employer]) 00:00: 05:59 nebulizati H ospita 0.5-2.5 00 :00 on 4 l mg/3 mL (four) nebulizer times a day for 30 days. ipratropium 2023-0 2023- No [id number] 3mL Q.25D Take 3 mL Methodi -albuteroL 11-22 by ([employer]) 00:00: 00:00 nebulizati H ospita 0.5-2.5 00 :00 on 4 l mg/3 mL (four) nebulizer times a day. ipratropium 2023-0 2023- No [id number] 3mL Q.25D Take 3 mL Methodi -albuteroL 11-22 by ([employer]) 00:00: 00:00 nebulizati H ospita 0.5-2.5 00 :00 on 4 l mg/3 mL (four) nebulizer times a day. ipratropium 2023-0 2023- No [id number] 3mL Q.25D Take 3 mL Methodi -albuteroL 211-22 by ([email or web address]) 00:00: 00:00 nebulizati H ospita 0.5-2.5 00 :00 on 4 l mg/3 mL (four) nebulizer times a day. ipratropium 2023-0 2023- No [id number] 3mL Q.25D Take 3 mL Methodi -albuteroL 11-22 by ([email or web address]) 00:00: 00:00 nebulizati H ospita 0.5-2.5 00 :00 on 4 l mg/3 mL (four) nebulizer times a day. ipratropium 2023-0 2023- No [id number] 3mL Q.25D Take 3 mL Methodi -albuteroL 11-[address] (DUO-NEB) 00:00: 00:00 nebulizati H ospita 0.5-2.5 00 :00 on 4 l mg/3 mL (four) [place] [id number] 50mg Q4H Take 1 Metho di (ULTRAM) 50 11-13- tablet (50 s t mg tablet 00:00: 00:00 mg total) Ho spita 00 :00 by mouth l every 4 (four) hours as needed for moderate pain for up to 20 [place] [id number] 50mg Q4H Take 1 Metho di (ULTRAM) 50 11-13- tablet (50 s t mg tablet 00:00: 00:00 mg total) Ho spita 00 :00 by mouth l every 4 (four) hours as needed for moderate pain for up to 20 [place] [id number] 50mg Q4H Take 1 Metho di (ULTRAM) 50 11-13-03 tablet (50 s t mg tablet 00:00: 00:00 mg total) Ho spita 00 :00 by mouth l every 4 (four) hours as needed for moderate pain for up to 20 [place] [id number] 50mg Q4H Take 1 Metho di (ULTRAM) 50 11-13-03 tablet (50 s t mg tablet 00:00: 00:00 mg total) Ho spita 00 :00 by mouth l every 4 (four) hours as needed for moderate pain for up to 20 [place] [id number] 50mg Q4H Take 1 Metho di (ULTRAM) 50 11-13-03 tablet (50 s t mg tablet 00:00: 00:00 mg total) Ho spita 00 :00 by mouth l every 4 (four) hours as needed for moderate pain for up to 20 days .acute pain. donepeziL 2021-10 Yes Methodi (ARICEPT) 11-29 st 10 MG 00:00: Hospita tablet 00 l donepeziL 2021-10 Yes [id number] 10mg Take 1 Un oren (ARICEPT) 2-09 tablet by ity o f 10 mg 00:00: mouth at [place] tablet 00 bedtime. Medical Branch donepeziL 2021-10 Yes [id number] 10mg Take 1 Un orne (ARICEPT) 2-09 tablet by ity o f 10 mg 00:00: mouth at [place] tablet 00 bedtime. Medical Branch donepeziL 2021-10 Yes [id number] 10mg Take 1 Un oren (ARICEPT) 2-09 tablet by ity o f 10 mg 00:00: mouth at [place] tablet 00 bedtime. Medical Branch donepeziL 2021-10 Yes [id number] 10mg Take 1 Un oren (ARICEPT) 2-09 tablet by ity o f 10 mg 00:00: mouth at [place] tablet 00 bedtime. Medical Branch donepeziL 2021-10 Yes [id number] 10mg Take 1 Un oren (ARICEPT) 2-09 tablet by ity o f 10 mg 00:00: mouth at [place] tablet 00 bedtime. Medical Branch donepeziL 2021-10 Yes [id number] 10mg Take 1 Un oren (ARICEPT) 2-09 tablet by ity o f 10 mg 00:00: mouth at [place] tablet 00 bedtime. Medical Branch donepeziL 2021-10 Yes [id number] 10mg Take 1 Un oren (ARICEPT) 2-09 tablet by ity o f 10 mg 00:00: mouth at [place] tablet 00 bedtime. Medical Branch donepeziL 2021-10 Yes Methodi (ARICEPT) 2 st 10 MG 00:00: Hospita tablet 00 l donepeziL 2021-10 Yes Methodi (ARICEPT) 2 st 10 MG 00:00: Hospita tablet 00 l donepeziL 2021-10 Yes Methodi (ARICEPT) 2 st 10 MG 00:00: Hospita tablet 00 l donepeziL 2021-10 Yes Methodi (ARICEPT) 2 st 10 MG 00:00: Hospita tablet 00 l donepeziL 5 2021-10 Yes [id number] 5mg Take 1 Univers mg tablet 1-08 tablet by ity o f 00:00: mouth at [place] 00 bedtime. Medical Branch donepeziL 5 2021-10 Yes [id number] 5mg Take 1 Univers mg tablet 1-08 tablet by ity o f 00:00: mouth at [place] 00 bedtime. Medical Branch donepeziL 5 2021-10 Yes [id number] 5mg Take 1 Univers mg tablet 1-08 tablet by ity o f 00:00: mouth at [place] 00 bedtime. Medical Branch donepeziL 5 2021-10- No [id number] 5mg Take 1 Univers mg tablet 10-28- tablet by ity of 00:00: 00:00 mouth at [place] 00 :00 bedtime. Medical Branch donepeziL 5 2021-10- No [id number] 5mg Take 1 Univers mg tablet 10-28 tablet by ity of 00:00: 00:00 mouth at [place] 00 :00 bedtime. Medical Branch donepeziL 5 2021-10- No [id number] 5mg Take 1 Univers mg tablet 10-28 tablet by ity of 00:00: 00:00 mouth at [place] 00 :00 bedtime. Medical Branch rivastigmin Yes [id number] 1{patch Apply 1 Univers e 4.6 mg/24 9 } Patch to [place] of [place] patch 00:[place] the [place] morning. Branch rivastigmin Yes [id number] 1{patch Apply 1 Univers e 9.5 mg/24 06-29 } Patch to [place]y of hour patch 00:00: [place] 00 the Medical morning. Branch Use this script when the rivastigmi ne 4.6 mg patch is used up. rivastigmin Yes [id number] 1{patch Apply 1 Univers e 4.6 mg/24 9 } Patch to [place]y of hour patch 00:00: [place] 00 the Medical morning. Branch rivastigmin Yes [id number] 1{patch Apply 1 Univers e 9.5 mg/24 9 } Patch to [place]y of hour patch 00:00: [place] 00 the Medical morning. Branch Use this script when the rivastigmi ne 4.6 mg patch is used up. rivastigmin 2022-0 Yes [id number] 1{patch Apply 1 Univers e 4.6 mg/24 909 } Patch to [place]y of hour patch 00:00: [place] 00 the Medical morning. [place] rivastigmin Yes [id number] 1{patch Apply 1 Univers e 9.5 mg/24 909 } Patch to [place]y of hour patch 00:00: [place] 00 the Medical morning. Branch Use this script when the rivastigmi ne 4.6 mg patch is used up. rivastigmin Yes [id number] 1{patch Apply 1 Univers e 4.6 mg/24 9 } Patch to [place]y of hour patch 00:00: [place] 00 the Medical morning. [place] rivastigmin Yes [id number] 1{patch Apply 1 Univers e 9.5 mg/24 06-29 } Patch to [place]y of hour patch 00:00: [place] 00 the Medical morning. Branch Use this script when the rivastigmi ne 4.6 mg patch is used up. rivastigmin Yes [id number] 1{patch Apply 1 Univers e 4.6 mg/24 06-29 } Patch to [place]y of hour patch 00:00: [place] 00 the Medical morning. Tony rivastigmin Yes [id number] 1{patch Apply 1 Univers e 9.5 mg/24 06-29 } Patch to [place]y of hour patch 00:00: [place] 00 the Medical morning. Branch Use this script when the rivastigmi ne 4.6 mg patch is used up. rivastigmin Yes [id number] 1{patch Apply 1 Univers e 4.6 mg/24 9 } Patch to [place]y of hour patch 00:00: [place] 00 the Medical morning. [place] rivastigmin Yes [id number] 1{patch Apply 1 Univers e 9.5 mg/24 9 } Patch to [place]y of hour patch 00:00: [place] 00 the Medical morning. Branch Use this script when the rivastigmi ne 4.6 mg patch is used up. rivastigmin Yes [id number] 1{patch Apply 1 Univers e 4.6 mg/24 909 } Patch to [place]y of hour patch 00:00: [place] 00 the Medical morning. [place] rivastigmin Yes [id number] 1{patch Apply 1 Univers e 9.5 mg/06-29 } Patch to [place]y of hour patch 00:00: [place] 00 the Medical morning. Branch Use this script when the rivastigmi ne 4.6 mg patch is used up. rivastigmin 2021- No [id number] 1{patch Apply 1 Univers e 4.6 mg/06-29 } Patch to ity of hour patch 00:00: 00:00 skin in [place] 00 :00 the Medical morning. [place] rivastigmin 2021- No [id number] 1{patch Apply 1 Univers e 9.5 mg/06-29 } Patch to ity of hour patch 00:00: 00:00 skin in [place] 00 :00 the Medical morning. Branch Use this script when the rivastigmi ne 4.6 mg patch is used up. rivastigmin 2021- No [id number] 1{patch Apply 1 Univers e 4.6 mg/06-29 } Patch to ity of hour patch 00:00: 00:00 skin in [place] 00 :00 the Medical morning. [place] rivastigmin 2021- No [id number] 1{patch Apply 1 Univers e 9.5 mg/06-29 } Patch to ity of hour patch [...] 00 Zofran 4 MG Zofran 4 MG 2021-0 No BID Zofran 4 8-16 MG 00:00: 00 Zofran 4 MG Zofran 4 MG 2021-0 No BID Zofran 4 8-16 MG 00:00: 00 Zofran 4 MG Zofran 4 MG 2021-0 No BID Zofran 4 8-16 MG 00:00: 00 Zofran 4 MG Zofran 4 MG 2021-0 No BID Zofran 4 8-16 MG 00:00: 00 Zofran 4 MG Zofran 4 MG 2021-0 No BID Zofran 4 8-16 MG 00:00: 00 Zofran 4 MG Zofran 4 MG 2021-0 No BID Zofran 4 8-16 MG 00:00: 00 Zofran 4 MG Zofran 4 MG 2021-0 No BID Zofran 4 8-16 MG 00:00: 00 Zofran 4 MG Zofran 4 MG 2021-0 No BID Zofran 4 8-16 MG 00:00: 00 rivastigmin 0 2021- No 1{patch Apply 1 Univers e 4.6 mg/24 05-25 } Patch to ity of hour patch 00:00: 00:00 skin in [place] 00 :00 the Medical morning. [place] rivastigmin 2021-0 2021- No 1{patch Apply 1 [...] 2-28 mg tablet ity o f 10:51: [address] cyclobenza Univers rine 10 mg 2-28 shanell 10 ity o f tablet 10:51: mg tablet [place] 24 Take 1 Medical tablet 3 Branch times a day by oral route as directed for 10 days. diazePAM 2 Yes diazepam 2 U nivers mg tablet 2-28 mg tablet ity o f 10:51: [address] cyclobenza Univers rine 10 mg 2-28 shanell 10 ity o f tablet 10:51: mg tablet [place] 24 Take 1 Medical tablet 3 Branch times a day by oral route as directed for 10 days. diazePAM 2 Yes diazepam 2 U nivers mg tablet 2-28 mg tablet ity o f 10:51: [address] cyclobenza Univers rine 10 mg 2-28 shanell 10 ity o f tablet 10:51: mg tablet [place] 24 Take 1 Medical tablet 3 Branch times a day by oral route as directed for 10 days. diazePAM Yes diazepam 2 U nivers mg tablet 2-28 mg tablet ity o f 10:51: [address] cyclobenza Univers rine 10 mg 2-28 shanell 10 ity o f tablet 10:51: mg tablet 24 Take 1 Medical tablet 3 Branch times a day by oral route as directed for 10 days. diazePAM Yes diazepam 2 U nivers mg tablet 2-28 mg tablet ity o f 10:51: [address] cyclobenza Univers rine 10 mg 2-28 shanell 10 ity o f tablet 10:51: mg tablet 24 Take 1 Medical tablet 3 Branch times a day by oral route as directed for 10 days. diazePAM 2 Yes diazepam 2 U nivers mg tablet 2-28 mg tablet ity o f 10:51: [address] cyclobenza Univers rine 10 mg 2-28 sh[place]ell 10 ity o f tablet 10:51: mg tablet 24 Take 1 Medical tablet 3 Branch times a day by oral route as directed for 10 days. diazePAM Yes diazepam 2 U nivers mg tablet 2-28 mg tablet ity o f 10:51: [address] cyclobenza Univers rine 10 mg 2-28 shanell 10 ity o f tablet 10:51: mg tablet [place] 24 Take 1 Medical tablet 3 Branch times a day by oral route as directed for 10 days. diazePAM 2 Yes diazepam 2 U nivers mg tablet 2-28 mg tablet ity o f 10:51: [address] cyclobenzap Yes cyclobenza Univers rine 10 mg 2-28 shanell 10 ity o f tablet 10:51: mg tablet [place] 24 Take 1 Medical tablet 3 Branch times a day by oral route as directed for 10 days. diazePAM Yes diazepam 2 U nivers mg tablet 2-28 mg tablet ity o f 10:51: [address] cyclobenza Univers rine 10 mg 2-28 sh[place]ell 10 ity o f tablet 10:51: mg tablet [place] 24 Take 1 Medical tablet 3 Branch times a day by oral route as directed for 10 days. diazePAM Yes diazepam 2 U nivers mg tablet 2-28 mg tablet ity o f 10:51: [address] cyclobenza Univers rine 10 mg 2-28 [place] 10 ity o f tablet 10:51: mg tablet 24 Take 1 Medical tablet 3 Branch times a day by oral route as directed for 10 days. diazePAM Yes diazepam 2 U nivers mg tablet 2-28 mg tablet ity o f 10:51: [address] cyclobenza Univers rine 10 mg 2-28 [place] 10 ity o f tablet 10:51: mg tablet 24 Take 1 Medical tablet 3 Branch times a day by oral route as directed for 10 days. diazePAM 2 Yes diazepam 2 U nivers mg tablet 2-28 mg tablet ity o f 10:51: [address] cyclobenzap Yes cyclobenza Univers rine 10 mg 2-28 shanell 10 ity o f tablet 10:51: mg tablet [place] 24 Take 1 Medical tablet 3 Branch times a day by oral route as directed for 10 days. diazePAM 2 Yes diazepam 2 U nivers mg tablet 2-28 mg tablet ity o f 10:51: [address] cyclobenza Univers rine 10 mg 2-28 [place] 10 ity o f tablet 10:51: mg tablet 24 Take 1 Medical tablet 3 Branch times a day by oral route as directed for 10 days. diazePAM 2 Yes diazepam 2 U nivers mg tablet 2-28 mg tablet ity o f 10:51: [address] cyclobenza Univers rine 10 mg 2-28 [place] 10 ity o f tablet 10:51: mg tablet 24 Take 1 Medical tablet 3 Branch times a day by oral route as directed for 10 days. diazePAM 2 Yes diazepam 2 U nivers mg tablet 2-28 mg tablet ity o f 10:51: [address] cyclobenza Univers rine 10 mg 2-28 [place] 10 ity o f tablet 10:51: mg tablet 24 Take 1 Medical tablet 3 Branch times a day by oral route as directed for 10 days. diazePAM 2 Yes diazepam 2 U nivers mg tablet 2-28 mg tablet ity o f 10:51: [address] cyclobenza Univers rine 10 mg 2-28 [place] 10 ity o f tablet 10:51: mg tablet Take 1 Medical tablet 3 Branch times a day by oral route as directed for 10 days. diazePAM 2 Yes diazepam 2 U nivers mg tablet 2-28 mg tablet ity o f 10:51: [address] donepeziL 5 2021-2021- No [id number] 5mg Take 1 Univers mg tablet -18 07- tablet by ity of 00:00: 00:00 mouth at [place] 00 :00 bedtime. Medical When Branch script runs out, call in for another increase. donepeziL 5 2021-2021- No [id number] 5mg Take 1 Univers mg tablet -18 07- tablet by ity of 00:00: 00:00 mouth at [place] 00 :00 bedtime. Medical When Branch script runs out, call in for another increase. clotrimazol 2022-0 Yes DISSOLVE 1 Univers e [...] by mouth ity of tablet 00:00: daily. [facility] meloxicam 2020-10 Yes 15mg Take 15 mg Un oren 15 mg 2-28 by mouth ity of tablet 00:00: daily. [facility] [facility] meloxicam 2020-10 Yes 15mg Take 15 mg Un oren 15 mg 2-28 by mouth ity of tablet 00:00: daily. [facility] meloxicam 2020-10 Yes 15mg Take 15 mg Un oren 15 mg 2-28 by mouth ity of tablet 00:00: daily. [facility] meloxicam 2020-10 Yes 15mg Take 15 mg Un oren 15 mg 2-28 by mouth ity of tablet 00:00: daily. [facility] meloxicam 2020-10 Yes 15mg Take 15 mg Un oren 15 mg 2-28 by mouth ity of tablet 00:00: daily. [facility] meloxicam 2020-10 Yes 15mg Take 15 mg Un oren 15 mg 2-28 by mouth ity of tablet 00:00: daily. [facility] meloxicam 2020-10 Yes 15mg Take 15 mg Un oren 15 mg 2-28 by mouth ity of tablet 00:00: daily. [facility] meloxicam 2020-10 Yes 15mg Take 15 mg Un oren 15 mg 2-28 by mouth ity of tablet 00:00: daily. [facility] meloxicam 2020-10 Yes 15mg Take 15 mg Un oren 15 mg 2-28 by mouth ity of tablet 00:00: daily. [facility] meloxicam 2020-10 Yes 15mg Take 15 mg Un oren 15 mg 2-28 by mouth ity of tablet 00:00: daily. [facility] meloxicam 2020-10 Yes 15mg Take 15 mg Un oren 15 mg 2-28 by mouth ity of tablet 00:00: daily. [facility] meloxicam 2020-10 Yes 15mg Take 15 mg Un oren 15 mg 2-28 by mouth ity of tablet 00:00: daily. [facility] meloxicam 2020-10 Yes 15mg Take 15 mg Un oren 15 mg 2-28 by mouth ity of tablet 00:00: daily. [facility] meloxicam 2020-10 Yes 15mg Take 15 mg Un oren 15 mg 2-28 by mouth ity of tablet 00:00: daily. [address] meloxicam 2020-10 Yes 15mg Take 15 mg Un oren 15 mg 2-28 by mouth ity of tablet 00:00: daily. [address] meloxicam 2020-10 Yes 15mg Take 15 mg Un oren 15 mg 2-28 by mouth ity of tablet 00:00: daily. [address] meloxicam 2020-10 Yes 15mg Take 15 mg Un oren 15 mg 2-28 by mouth ity of tablet 00:00: daily. [address] solifenacin 2020-10- No [facility] ethodi [...] days. cyclobenzap 2020-10- No cyclobenza Methodi rine 209-[address] (FLEXERIL) 10:45: 00:00 mg tablet [facility] 10 mg 14 :00 Take 1 l tablet tablet 3 times a day by oral route as directed for 10 days. IPRATROPIUM 2020-10 Yes [id number] INHALE 1 Univers 0.02 % 1-13 VIAL(2.5 ity of nebulizer 00:00: ML) VIA [place] solution 00 NEBULIZER Medica l TWICE Branch DAILY NEEDED FOR WHEEZING OR SHORTNESS OF BREATH IPRATROPIUM 2020-10 Yes [id number] INHALE 1 Univers 0.02 % 1-13 VIAL(2.5 ity of nebulizer 00:00: ML) VIA [place] solution 00 NEBULIZER Medica l TWICE Branch DAILY NEEDED FOR WHEEZING OR SHORTNESS OF BREATH IPRATROPIUM 2020-10 Yes [id number] INHALE 1 Univers 0.02 % 1-13 VIAL(2.5 ity of nebulizer 00:00: ML) VIA [place] solution 00 NEBULIZER Medica l TWICE Branch DAILY NEEDED FOR WHEEZING OR SHORTNESS OF BREATH IPRATROPIUM 2020-10 Yes [id number] INHALE 1 Univers 0.02 % 1-13 VIAL(2.5 ity of nebulizer 00:00: ML) VIA [place] solution 00 NEBULIZER Medica l TWICE Branch DAILY NEEDED FOR WHEEZING OR SHORTNESS OF BREATH IPRATROPIUM 2020-10 Yes [id number] INHALE 1 Univers 0.02 % 1-13 VIAL(2.5 ity of nebulizer 00:00: ML) VIA [place] solution 00 NEBULIZER Medica l TWICE Branch DAILY NEEDED FOR WHEEZING OR SHORTNESS OF BREATH IPRATROPIUM 2020-10 Yes [id number] INHALE 1 Univers 0.02 % 1-13 VIAL(2.5 ity of nebulizer 00:00: ML) VIA [place] solution 00 NEBULIZER Medica l TWICE Branch DAILY NEEDED FOR WHEEZING OR SHORTNESS OF BREATH IPRATROPIUM 2020-10 Yes [id number] INHALE 1 Univers 0.02 % 1-13 VIAL(2.5 ity of nebulizer 00:00: ML) VIA [place] solution 00 NEBULIZER Medica l TWICE Branch DAILY NEEDED FOR WHEEZING OR SHORTNESS OF BREATH IPRATROPIUM 2020-10 Yes [id number] INHALE 1 Univers 0.02 % 1-13 VIAL(2.5 ity of nebulizer 00:00: ML) VIA [place] solution 00 NEBULIZER Medica l TWICE Branch DAILY NEEDED FOR WHEEZING OR SHORTNESS OF BREATH IPRATROPIUM 2020-10 Yes [id number] INHALE 1 Univers 0.02 % 1-13 VIAL(2.5 ity of nebulizer 00:00: ML) VIA [place] solution 00 NEBULIZER Medica l TWICE Branch DAILY NEEDED FOR WHEEZING OR SHORTNESS OF BREATH IPRATROPIUM 2020-10 Yes [id number] INHALE 1 Univers 0.02 % 1-13 VIAL(2.5 ity of nebulizer 00:00: ML) VIA [place] solution 00 NEBULIZER Medica l TWICE Branch DAILY NEEDED FOR WHEEZING OR SHORTNESS OF BREATH IPRATROPIUM 2020-10 Yes [id number] INHALE 1 Univers 0.02 % 1-13 VIAL(2.5 ity of nebulizer 00:00: ML) VIA [place] solution 00 NEBULIZER Medica l TWICE Branch DAILY NEEDED FOR WHEEZING OR SHORTNESS OF BREATH IPRATROPIUM 2020-10 Yes [id number] INHALE 1 Univers 0.02 % 1-13 VIAL(2.5 ity of nebulizer 00:00: ML) VIA [place] solution 00 NEBULIZER Medica l TWICE Branch DAILY NEEDED FOR WHEEZING OR SHORTNESS OF BREATH IPRATROPIUM 2020-10 Yes [id number] INHALE 1 Univers 0.02 % 1-13 VIAL(2.5 ity of nebulizer 00:00: ML) VIA [place] solution 00 NEBULIZER Medica l TWICE Branch DAILY NEEDED FOR WHEEZING OR SHORTNESS OF BREATH IPRATROPIUM 2020-10 Yes [id number] INHALE 1 Univers 0.02 % 1-13 VIAL(2.5 ity of nebulizer 00:00: ML) VIA [place] solution 00 NEBULIZER Medica l TWICE Branch DAILY NEEDED FOR WHEEZING OR SHORTNESS OF BREATH IPRATROPIUM 2020-10 Yes [id number] INHALE 1 Univers 0.02 % 1-13 VIAL(2.5 ity of nebulizer 00:00: ML) VIA [place] solution 00 NEBULIZER Medica l TWICE Branch DAILY NEEDED FOR WHEEZING OR SHORTNESS OF BREATH IPRATROPIUM 2020-10 Yes [id number] INHALE 1 Univers 0.02 % 1-13 VIAL(2.5 ity of nebulizer 00:00: ML) VIA [place] solution 00 NEBULIZER Medica l TWICE Branch DAILY NEEDED FOR WHEEZING OR SHORTNESS OF BREATH IPRATROPIUM 2020-10 Yes [id number] INHALE 1 Univers 0.02 % 1-13 VIAL(2.5 ity of nebulizer 00:00: ML) VIA [place] solution 00 NEBULIZER Medica l TWICE Branch DAILY NEEDED FOR WHEEZING OR SHORTNESS OF BREATH IPRATROPIUM 2020-10 Yes [id number] INHALE 1 Univers 0.02 % 1-13 VIAL(2.5 ity of nebulizer 00:00: ML) VIA [place] solution 00 NEBULIZER Medica l TWICE Branch DAILY NEEDED FOR WHEEZING OR SHORTNESS OF BREATH ascorbic 2020-0 Yes 500mg Take 500 Univ ers acid, 3-03 mg by ity of vitamin C, 15:51: mouth. [place] (VITAMIN C) 53 Medical 500 mg Branch [...] by ity of vitamin C, 15:51: mouth. [place] (VITAMIN C) 53 Medical 500 mg Branch [...] by ity of vitamin C, 15:51: mouth. [place] (VITAMIN C) 53 Medical 500 mg Branch [...] by ity of vitamin C, 15:51: mouth. [place] (VITAMIN C) 53 Medical 500 mg Branch [...] by ity of vitamin C, 15:51: mouth. [place] (VITAMIN C) 53 Medical 500 mg Branch [...] by ity of vitamin C, 15:51: mouth. [place] (VITAMIN C) 53 Medical 500 mg Branch [...] by ity of vitamin C, 15:51: mouth. [place] (VITAMIN C) 53 Medical 500 mg Branch [...] by ity of vitamin C, 15:51: mouth. [place] (VITAMIN C) 53 Medical 500 mg Branch [...] by ity of vitamin C, 15:51: mouth. [place] (VITAMIN C) 53 Medical 500 mg Branch [...] by ity of vitamin C, 15:51: mouth. [place] (VITAMIN C) 53 Medical 500 mg Branch [...] by ity of vitamin C, 15:51: mouth. [place] (VITAMIN C) 53 Medical 500 mg Branch [...] by ity of vitamin C, 15:51: mouth. [place] (VITAMIN C) 53 Medical 500 mg Branch [...] by ity of vitamin C, 15:51: mouth. [place] (VITAMIN C) 53 Medical 500 mg Branch [...] by ity of vitamin C, 15:51: mouth. [place] (VITAMIN C) 53 Medical 500 mg Branch [...] by ity of vitamin C, 15:51: mouth. [place] (VITAMIN C) 53 Medical 500 mg Branch [...] by ity of vitamin C, 15:51: mouth. [place] (VITAMIN C) 53 Medical 500 mg Branch [...] by ity of vitamin C, 15:51: mouth. [place] (VITAMIN C) 53 Medical 500 mg Branch [...] by ity of vitamin C, 15:51: mouth. [place] (VITAMIN C) 53 Medical 500 mg Branch [...] by mouth ity of capsule 15:25: daily. [place] [facility] predniSONE Yes 10mg Take 10 mg U nivers 10 mg 3-03 by mouth ity of tablet 15:25: as needed [place] (wheezing) Medical . Branch tiotropium Yes 18ug Inhale 18 Un oren 18 mcg 3-03 mcg daily. ity of inhalation 15:25: [place] [facility] omeprazole Yes 40mg Take 40 mg U nivers 40 mg 3-03 by mouth ity of capsule 15:25: daily. [place] [facility] predniSONE Yes 10mg Take 10 mg U nivers 10 mg 3-03 by mouth ity of tablet 15:25: as needed [place] (wheezing) Medical . Branch tiotropium Yes 18ug Inhale 18 Un oren 18 mcg 3-03 mcg daily. ity of inhalation 15:25: [place] [facility] omeprazole 2021-0 Yes 40mg Take 40 mg U nivers 40 mg 3-03 by mouth ity of capsule 15:25: daily. [place] [address] Medical Branch predniSONE 0 Yes 10mg Take 10 mg U nivers 10 mg 3-03 by mouth ity of tablet 15:25: as needed [place] [address] (wheezing) Medical . Branch tiotropium Yes 18ug Inhale 18 Un oren 18 mcg 3-03 mcg daily. ity of inhalation 15:25: [place] [address] Medical Branch omeprazole 0 Yes 40mg Take 40 mg U nivers 40 mg 3-03 by mouth ity of capsule 15:25: daily. [address] predniSONE 0 Yes 10mg Take 10 mg U nivers 10 mg 3-03 by mouth ity of tablet 15:25: as needed [place] [address] (wheezing) Medical . Branch tiotropium Yes 18ug Inhale 18 Un oren 18 mcg 3-03 mcg daily. ity of inhalation 15:25: [place] [address] Medical Branch omeprazole Yes 40mg Take 40 mg U nivers 40 mg 3-03 by mouth ity of capsule 15:25: daily. [address] predniSONE 0 Yes 10mg Take 10 mg U nivers 10 mg 3-03 by mouth ity of tablet 15:25: as needed [place] [address] (wheezing) Medical . Branch tiotropium Yes 18ug Inhale 18 Un oren 18 mcg 3-03 mcg daily. ity of inhalation 15:25: [address] Branch omeprazole Yes 40mg Take 40 mg U nivers 40 mg 3-03 by mouth ity of capsule 15:25: daily. [address] predniSONE 2020-0 Yes 10mg Take 10 mg U nivers 10 mg 3-03 by mouth ity of tablet 15:25: as needed [place] (wheezing) Medical . Branch tiotropium Yes 18ug Inhale 18 Un oren 18 mcg 3-03 mcg daily. ity of inhalation 15:25: [address] Branch omeprazole 0 Yes 40mg Take 40 mg U nivers 40 mg 3-03 by mouth ity of capsule 15:25: daily. [address] predniSONE 2020-0 Yes 10mg Take 10 mg U nivers 10 mg 3-03 by mouth ity of tablet 15:25: as needed [place] [address] (wheezing) Medical . Branch tiotropium 0 Yes 18ug Inhale 18 Un oren 18 mcg 3-03 mcg daily. ity of inhalation 15:25: [address] omeprazole 2020-0 Yes 40mg Take 40 mg U nivers 40 mg 3-03 by mouth ity of capsule 15:25: daily. [address] predniSONE 2020-0 Yes 10mg Take 10 mg U nivers 10 mg 3-03 by mouth ity of tablet 15:25: as needed [place] [address] (wheezing) Medical . Branch tiotropium 0 Yes 18ug Inhale 18 Un oren 18 mcg 3-03 mcg daily. ity of inhalation 15:25: [address] omeprazole 2020-0 Yes 40mg Take 40 mg U nivers 40 mg 3-03 by mouth ity of capsule 15:25: daily. [address] predniSONE 2020-0 Yes 10mg Take 10 mg U nivers 10 mg 3-03 by mouth ity of tablet 15:25: as needed [place] [address] (wheezing) Medical . Branch tiotropium 0 Yes 18ug Inhale 18 Un oren 18 mcg 3-03 mcg daily. ity of inhalation 15:25: [address] omeprazole 2020-0 Yes 40mg Take 40 mg U nivers 40 mg 3-03 by mouth ity of capsule 15:25: daily. [address] predniSONE 2020-0 Yes 10mg Take 10 mg U nivers 10 mg 3-03 by mouth ity of tablet 15:25: as needed [place] [address] (wheezing) Medical . Branch tiotropium 0 Yes 18ug Inhale 18 Un oren 18 mcg 3-03 mcg daily. ity of inhalation 15:25: [address] omeprazole 2020-0 Yes 40mg Take 40 mg U nivers 40 mg 3-03 by mouth ity of capsule 15:25: daily. [address] predniSONE 2020-0 Yes 10mg Take 10 mg U nivers 10 mg 3-03 by mouth ity of tablet 15:25: as needed [place] [address] (wheezing) Medical . Branch tiotropium 2020-0 Yes 18ug Inhale 18 Un oren 18 mcg 3-03 mcg daily. ity of inhalation 15:25: [place] 01 [facility] Branch omeprazole 2021-0 Yes 40mg Take 40 mg U nivers 40 mg 3-03 by mouth ity of capsule 15:25: daily. [place] [address] Medical Branch predniSONE 0 Yes 10mg Take 10 mg U nivers 10 mg 3-03 by mouth ity of tablet 15:25: as needed [place] [address] (wheezing) Medical . Branch tiotropium Yes 18ug Inhale 18 Un oren 18 mcg 3-03 mcg daily. ity of inhalation 15:25: [place] [address] Medical Branch omeprazole Yes 40mg Take 40 mg U nivers 40 mg 3-03 by mouth ity of capsule 15:25: daily. [place] [address] Medical Branch predniSONE 0 Yes 10mg Take 10 mg U nivers 10 mg 3-03 by mouth ity of tablet 15:25: as needed [place] [address] (wheezing) Medical . Branch tiotropium Yes 18ug Inhale 18 Un oren 18 mcg 3-03 mcg daily. ity of inhalation 15:25: [place] [address] Medical Branch omeprazole Yes 40mg Take 40 mg U nivers 40 mg 3-03 by mouth ity of capsule 15:25: daily. [address] predniSONE 0 Yes 10mg Take 10 mg U nivers 10 mg 3-03 by mouth ity of tablet 15:25: as needed [place] [address] (wheezing) Medical . Branch tiotropium Yes 18ug Inhale 18 Un oren 18 mcg 3-03 mcg daily. ity of inhalation 15:25: [place] [address] Medical Branch omeprazole Yes 40mg Take 40 mg U nivers 40 mg 3-03 by mouth ity of capsule 15:25: daily. [place] [address] Medical [place] predniSONE 0 Yes 10mg Take 10 mg U nivers 10 mg 3-03 by mouth ity of tablet 15:25: as needed [place] (wheezing) Medical . Branch tiotropium Yes 18ug Inhale 18 Un oren 18 mcg 3-03 mcg daily. ity of inhalation 15:25: [place] [address] Medical Branch omeprazole 0 Yes 40mg Take 40 mg U nivers 40 mg 3-03 by mouth ity of capsule 15:25: daily. [address] predniSONE 2020-0 Yes 10mg Take 10 mg U nivers 10 mg 3-03 by mouth ity of tablet 15:25: as needed [place] (wheezing) Medical . Branch tiotropium Yes 18ug Inhale 18 Un oren 18 mcg 3-03 mcg daily. ity of inhalation 15:25: [place] [address] Medical Branch omeprazole Yes 40mg Take 40 mg U nivers 40 mg 3-03 by mouth ity of capsule 15:25: daily. [place] [address] Medical Branch predniSONE Yes 10mg Take 10 mg U nivers 10 mg 3-03 by mouth ity of tablet 15:25: as needed [place] (wheezing) Medical . Branch tiotropium Yes 18ug Inhale 18 Un oren 18 mcg 3-03 mcg daily. ity of inhalation 15:25: [place] [facility] omeprazole Yes 40mg Take 40 mg U nivers 40 mg 3-03 by mouth ity of capsule 15:25: daily. [place] [address] Medical Branch predniSONE Yes 10mg Take 10 mg U nivers 10 mg 3-03 by mouth ity of tablet 15:25: as needed [place] (wheezing) Medical . Branch tiotropium Yes 18ug Inhale 18 Un oren 18 mcg 3-03 mcg daily. ity of inhalation 15:25: [place] [facility] ergocalcife 2020-0 Yes [id number] Take 1 Univers rol, 8-17 capsule by ity of vitamin d2, 00:00: mouth [place] (VITAMIN 00 weekly. Medical D2) 1,250 Branch mcg (50,000 unit) capsule ergocalcife 2020-0 Yes [id number] Take 1 Univers rol, 8-17 capsule by ity of vitamin d2, 00:00: mouth [place] (VITAMIN 00 weekly. Medical D2) 1,250 Branch mcg (50,000 unit) capsule ergocalcife 2020-0 Yes [id number] Take 1 Univers rol, 8-17 capsule by ity of vitamin d2, 00:00: mouth [place] (VITAMIN 00 weekly. Medical D2) 1,250 Branch mcg (50,000 unit) capsule ergocalcife 2020-0 Yes [id number] Take 1 Univers rol, 8-17 capsule by ity of vitamin d2, 00:00: mouth [place] (VITAMIN 00 weekly. Medical D2) 1,250 Branch mcg (50,000 unit) capsule ergocalcife 2020-0 Yes [id number] Take 1 Univers rol, 8-17 capsule by ity of vitamin d2, 00:00: mouth [place] (VITAMIN 00 weekly. Medical D2) 1,250 Branch mcg (50,000 unit) capsule ergocalcife 2020-0 Yes [id number] Take 1 Univers rol, 8-17 capsule by ity of vitamin d2, 00:00: mouth [place] (VITAMIN 00 weekly. Medical D2) 1,250 Branch mcg (50,000 unit) capsule ergocalcife 2020-0 Yes [id number] Take 1 Univers rol, 8-17 capsule by ity of vitamin d2, 00:00: mouth [place] (VITAMIN 00 weekly. Medical D2) 1,250 Branch mcg (50,000 unit) capsule ergocalcife 2020-0 Yes [id number] Take 1 Univers rol, 8-17 capsule by ity of vitamin d2, 00:00: mouth [place] (VITAMIN 00 weekly. Medical D2) 1,250 Branch mcg (50,000 unit) capsule ergocalcife 2020-0 Yes [id number] Take 1 Univers rol, 8-17 capsule by ity of vitamin d2, 00:00: mouth [place] (VITAMIN 00 weekly. Medical D2) 1,250 Branch mcg (50,000 unit) capsule ergocalcife 2020-0 Yes [id number] Take 1 Univers rol, 8-17 capsule by ity of vitamin d2, 00:00: mouth [place] (VITAMIN 00 weekly. Medical D2) 1,250 Branch mcg (50,000 unit) capsule ergocalcife 2020-0 Yes [id number] Take 1 Univers rol, 8-17 capsule by ity of vitamin d2, 00:00: mouth [place] (VITAMIN 00 weekly. Medical D2) 1,250 Branch mcg (50,000 unit) capsule ergocalcife 2020-0 Yes [id number] Take 1 Univers rol, 8-17 capsule by ity of vitamin d2, 00:00: mouth [place] (VITAMIN 00 weekly. Medical D2) 1,250 Branch mcg (50,000 unit) capsule ergocalcife 2020-0 Yes [id number] Take 1 Univers rol, 8-17 capsule by ity of vitamin d2, 00:00: mouth [place] (VITAMIN 00 weekly. Medical D2) 1,250 Branch mcg (50,000 unit) capsule ergocalcife 2020-0 Yes [id number] Take 1 Univers rol, 8-17 capsule by ity of vitamin d2, 00:00: mouth [place] (VITAMIN 00 weekly. Medical D2) 1,250 Branch mcg (50,000 unit) capsule ergocalcife 2020-0 Yes [id number] Take 1 Univers rol, 8-17 capsule by ity of vitamin d2, 00:00: mouth [place] (VITAMIN 00 weekly. Medical D2) 1,250 Branch mcg (50,000 unit) capsule ergocalcife 2020-0 Yes [id number] Take 1 Univers rol, 8-17 capsule by ity of vitamin d2, 00:00: mouth [place] (VITAMIN 00 weekly. Medical D2) 1,250 Branch mcg (50,000 unit) capsule ergocalcife 2020-0 Yes [id number] Take 1 Univers rol, 8-17 capsule by ity of vitamin d2, 00:00: mouth [place] (VITAMIN 00 weekly. Medical D2) 1,250 Branch mcg (50,000 unit) capsule ergocalcife 2020-0 Yes [id number] Take 1 Univers rol, 8-17 capsule by ity of vitamin d2, 00:00: mouth [place] (VITAMIN 00 weekly. Medical D2) 1,250 Branch mcg (50,000 unit) capsule Omeprazole Omeprazole 2018-0 Yes Tom 1 capsule Common 8-16 [facility] 00:00: - [facility] 00 [facility] Omeprazole Omeprazole 2018-0 No 1{capsu BID Omeprazole [...] MG 16:34: [facility]ospita tablet 22 l albuterol 2018-0 Yes ProAir HFA [facility] (PROAIR 2-[address] HFA,PROVENT 16:34: mcg/actuat [facility] [place] 22 ion l HFA,VENTOLI aerosol N HFA) 90 inhaler mcg/actuati on inhaler rosuvastati Yes Crestor 40 Methodi n (CRESTOR) 2-[address] 40 MG 16:34: Hospita tablet 22 l albuterol 2019 Yes ProAir HFA [facility] (PROAIR 2-[address] HFA,PROVENT 16:34: mcg/actuat [facility] [place] 22 ion l HFA,VENTOLI aerosol N HFA) 90 inhaler mcg/actuati on inhaler Rosuvastati Rosuvastati Yes Tom 1 tablet Common n Calcium n Calcium [facility] PredniSONE PredniSONE Yes Tom 1 tablet Common [facility] Vitamin B12 Vitamin B12 No Vitamin [...] 20 MG Probiotic Probiotic No Probiotic 1-250 BILLION-MG BILLION-MG BILLION-MG predniSONE predniSONE No [...] No Probiotic 250 1250 BILLION-MG BILLION-MG BILLION-MG Neuriva Neuriva No Neuriva [...] B12 Probiotic Probiotic No Probiotic 250 1-250 1-250 BILLION-MG BILLION-MG BILLION-MG Zinc Zinc [...] BILLION-MG BILLION-MG BILLION-MG Probiotic Probiotic No Probiotic 250 1-250 1-250 BILLION-MG BILLION-MG BILLION-MG Rosuvastati Rosuvastati [...] 2022-07-18 Completed Universit y of Vaccine,quad 00:00:00 [place] [facility] Im,preserve Free Branch 65+ Pneumococcal [...] 2020-08-26 Completed University o f Polysaccharide, 00:00:00 [place] [facility] ical PPSV23 (PNEUMOVAX) Branch Pneumococcal 2020-08-26 Completed University o f Polysaccharide, 00:00:00 [place] [facility] ical PPSV23 (PNEUMOVAX) Branch Influenza High Dose 2020-06-26 Completed Unive rsity of 00:00:00 [facility] Influenza High Dose 2020-06-26 Completed Unive rsity of 00:00:00 [facility] Influenza High Dose 2020-06-26 Completed Unive rsity of 00:00:00 [facility] Influenza High Dose 2020-06-26 Completed Unive rsity of 00:00:00 [facility] Influenza High Dose 2020-06-26 Completed Unive rsity of 00:00:00 [facility] Influenza High Dose 2020-06-26 Completed Unive rsity of 00:00:00 [facility] Influenza High Dose 2020-06-26 Completed Unive rsity of 00:00:00 [facility] Influenza High Dose 2020-06-26 Completed Unive rsity of 00:00:00 [facility] Influenza High Dose 2020-06-26 Completed Unive rsity of 00:00:00 [facility] Influenza High Dose 2020-06-26 Completed Unive rsity of 00:00:00 [facility] Influenza High Dose 2020-06-26 Completed Unive rsity of 00:00:00 [facility] Influenza High Dose 2020-06-26 Completed Unive rsity of 00:00:00 [facility] Influenza High Dose 2020-06-26 Completed Unive rsity of 00:00:00 [facility] Influenza High Dose 2020-06-26 Completed Unive rsity of 00:00:00 [facility] Influenza High Dose 2020-06-26 Completed Unive rsity of 00:00:00 [facility] Influenza High Dose 2020-06-26 Completed Unive rsity of 00:00:00 [facility] Influenza High Dose 2020-06-26 Completed Unive rsity of 00:00:00 [facility] Influenza High Dose 2020-06-26 Completed Unive rsity of 00:00:00 [facility] Influenza High Dose 2019-06-26 Completed Unive rsity of 00:00:00 [facility] Influenza High Dose 2019-06-26 Completed Unive rsity of 00:00:00 [facility] Influenza High Dose 2019-06-26 Completed Unive rsity of 00:00:00 [facility] Influenza High Dose 2019-06-26 Completed Unive rsity of 00:00:00 [facility] Influenza High Dose 2019-06-26 Completed Unive rsity of 00:00:00 [facility] Influenza High Dose 2019-06-26 Completed Unive rsity of 00:00:00 [facility] Influenza High Dose 2019-06-26 Completed Unive rsity of 00:00:00 [facility] Influenza High Dose 2019-06-26 Completed Unive rsity of 00:00:00 [facility] Influenza High Dose 2019-06-26 Completed Unive rsity of 00:00:00 [facility] Influenza High Dose 2019-06-26 Completed Unive rsity of 00:00:00 [facility] Influenza High Dose 2019-06-26 Completed Unive rsity of 00:00:00 [facility] Influenza High Dose 2019-06-26 Completed Unive rsity of 00:00:00 [facility] Influenza High Dose 2019-06-26 Completed Unive rsity of 00:00:00 [facility] Influenza High Dose 2019-06-26 Completed Unive rsity of 00:00:00 [facility] Influenza High Dose 2019-06-26 Completed Unive rsity of 00:00:00 [facility] Influenza High Dose 2019-06-26 Completed Unive rsity of 00:00:00 [facility] Influenza High Dose 2019-06-26 Completed Unive rsity of 00:00:00 [facility] Influenza High Dose 2019-06-26 Completed Unive rsity of 00:00:00 [facility] Influenza High Dose 2018-06-26 Completed Unive rsity of 00:00:00 [facility] Influenza High Dose 2018-06-26 Completed Unive rsity of 00:00:00 [facility] Influenza High Dose 2018-06-26 Completed Unive rsity of 00:00:00 [facility] Influenza High Dose 2018-06-26 Completed Unive rsity of 00:00:00 [facility] Influenza High Dose 2018-06-26 Completed Unive rsity of 00:00:00 [facility] Influenza High Dose 2018-06-26 Completed Unive rsity of 00:00:00 [facility] Influenza High Dose 2018-06-26 Completed Unive rsity of 00:00:00 [facility] Influenza High Dose 2018-06-26 Completed Unive rsity of 00:00:00 [facility] Influenza High Dose 2018-06-26 Completed Unive rsity of 00:00:00 [facility] Influenza High Dose 2018-06-26 Completed Unive rsity of 00:00:00 [facility] Influenza High Dose 2018-06-26 Completed Unive rsity of 00:00:00 [facility] Influenza High Dose 2018-06-26 Completed Unive rsity of 00:00:00 [facility] Influenza High Dose 2018-06-26 Completed Unive rsity of 00:00:00 [facility] Influenza High Dose 2018-06-26 Completed Unive rsity of 00:00:00 [facility] Influenza High Dose 2018-06-26 Completed Unive rsity of 00:00:00 [facility] Influenza High Dose 2018-06-26 Completed [facility]ive rsity of 00:00:00 [facility] Influenza High Dose 2018-06-26 Completed Unive rsity of 00:00:00 [facility] Influenza High Dose 2018-06-26 Completed Unive rsity of 00:00:00 [facility] FLUZONE HIGH DOSE FLUZONE HIGH DOSE Unknown Completed [facility] - OVER 65 OVER 65 [facility] FLUZONE HIGH DOSE FLUZONE HIGH DOSE Unknown Completed [facility] - OVER 65 OVER 65 [facility] FLUZONE HIGH DOSE FLUZONE HIGH DOSE Unknown Completed [facility] - OVER 65 OVER 65 [facility] Vital Signs Vital Name Observation Time Observation Value Comments Source Systolic blood 2023-05-07 19:11:00 131 mm[Hg] Univer sity of pressure [facility] Diastolic blood 2023-05-07 19:11:00 76 mm[Hg] Unive rsity of pressure [facility] Heart rate 2023-05-07 19:11:00 84 /min [facility] Body height 2023-05-07 19:11:00 165.1 cm [facility] Body weight 2023-05-07 19:11:00 55.656 kg [facility] BMI 2023-05-07 19:11:00 20.42 kg/m2 [facility] Systolic blood 2023-04-25 16:56:00 106 mm[Hg] Univer sity of pressure [facility] Diastolic blood 2023-04-25 16:56:00 62 mm[Hg] Unive rsity of pressure [facility] Heart rate 2023-04-25 16:56:00 87 /min Universi ty [facility] Body temperature 2023-04-25 16:56:00 36.5 [facility] 2023-04-25 16:56:00 18 /min [facility] Body height 2023-04-25 16:56:00 165.1 cm Universi ty [facility] Body weight 2023-04-25 16:56:00 55.203 kg Universi [facility] BMI 2023-04-25 16:56:00 20.25 kg/m2 [facility] Oxygen saturation in 2023-04-25 16:56:00 94 /min [facility] Arterial blood by [facility] Pulse oximetry Branch height 2022-12-18 11:10:00 62.5 [in_i] Common [facility] weight 2022-12-18 11:10:00 126.3 [lb_av] Common [facility] temperature 2022-12-18 11:10:00 97.3 [degF] Common [facility] bmi 2022-12-18 11:10:00 22.73 kg/m2 [facility] oximetry 2022-12-18 11:10:00 93 % [facility] respiratory rate 2022-12-18 11:10:00 16 /min Comm on [facility] blood pressure 2022-12-18 11:10:00 132 mm[Hg] Common [facility] - systolic [facility] blood pressure 2022-12-18 11:10:00 72 mm[Hg] Common [facility] - diastolic [facility] height 2022-12-05 16:00:00 62.5 [in_i] Common [facility] weight 2022-12-05 16:00:00 129.5 [lb_av] Common [facility] temperature 2022-12-05 16:00:00 97.0 [degF] [facility] - [facility] bmi 2022-12-05 16:00:00 23.31 kg/m2 [facility] oximetry 2022-12-05 16:00:00 95 % [facility] - [facility] respiratory rate 2022-12-05 16:00:00 16 /min [facility] - [facility] blood pressure 2022-12-05 16:00:00 138 mm[Hg] [facility] - systolic [facility] blood pressure 2022-12-05 16:00:00 80 mm[Hg] [facility] - diastolic [facility] Systolic blood 2022-10-31 19:55:00 128 mm[Hg] Univer [facility]ity of [facility] Diastolic blood 2022-10-31 19:55:00 78 mm[Hg] Unive [facility]ity of [facility] Heart rate 2022-10-31 19:55:00 73 /min Universi ty of [facility] Respiratory rate 2022-10-31 19:55:00 16 /min Univ ersity of [facility] Body weight 2022-10-31 19:55:00 58.514 kg Universi ty of [facility] BMI 2022-10-31 19:55:00 22.14 kg/m2 Universi ty [facility] Oxygen saturation in 2022-10-31 19:55:00 95 /min [facility] Arterial blood by [facility] Pulse oximetry Branch Systolic blood 2022-09-28 15:52:00 148 mm[Hg] Univer sity of pressure [facility] Diastolic blood 2022-09-28 15:52:00 83 mm[Hg] Unive rsity of pressure [facility] Heart rate 2022-09-28 15:52:00 78 /min Universi ty of [facility] Body height 2022-09-28 15:52:00 162.6 cm Universi ty of [facility] Body weight 2022-09-28 15:52:00 58.968 kg Universi ty [facility] BMI 2022-09-28 15:52:00 22.31 kg/m2 Universi ty [facility] Systolic blood 2022-08-28 21:49:00 134 mm[Hg] Univer sity of pressure [facility] Diastolic blood 2022-08-28 21:49:00 81 mm[Hg] Unive rsity of pressure [facility] Heart rate 2022-08-28 21:49:00 79 /min Universi ty [facility] Body height 2022-08-28 21:49:00 162.6 cm Universi ty [facility] Body weight 2022-08-28 21:49:00 58.06 kg Univers[facility] BMI 2022-08-28 21:49:00 21.97 kg/m2 [facility] Oxygen saturation in 2022-08-28 21:49:00 95 /min [facility] Arterial blood by [place] [employer] [facility] Pulse oximetry Branch Systolic blood 2022-07-18 16:08:00 133 mm[Hg] Univer sity of pressure [facility] Diastolic blood 2022-07-18 16:08:00 81 mm[Hg] Unive rsity of pressure [facility] Heart rate 2022-07-18 16:08:00 72 /min Universi ty [facility] Respiratory rate 2022-07-18 16:08:00 19 /min Univ ersity of [facility] Body height 2022-07-18 16:08:00 165.1 cm [facility] Body weight 2022-07-18 16:08:00 59.829 kg Univers[facility] BMI 2022-07-18 16:08:00 21.95 kg/m2 [facility] Oxygen saturation in 2022-07-18 16:08:00 98 /min [facility] Arterial blood by [place] [employer] jud[facility] Pulse oximetry Branch Systolic blood 2022-06-29 19:34:00 134 mm[Hg] Univer sity of pressure [facility] Diastolic blood 2022-06-29 19:34:00 76 mm[Hg] Unive rsity of pressure [facility] Heart rate 2022-06-29 19:34:00 72 /min [facility]i ty [facility] Body height 2022-06-29 19:34:00 165.1 cm [facility] Body weight 2022-06-29 19:34:00 60.782 kg Universi ty of [facility] BMI 2022-06-29 19:34:00 22[facility]30 [facility] Oxygen saturation in 2022-06-29 19:34:00 96 /min University Arterial blood by [facility] Pulse oximetry Branch height 2022-06-20 13:10:00 62.5 [in_i] [facility] weight 2022-06-20 13:10:00 132 [lb_av] Common [facility] temperature 2022-06-20 13:10:00 97.9 [degF] Common [facility] bmi 2022-06-20 13:10:00 23.76 kg/m2 [facility] oximetry 2022-06-20 13:10:00 95 % [facility] respiratory rate 2022-06-20 13:10:00 17 /min [facility] blood pressure 2022-06-20 13:10:00 136 mm[Hg] Common [facility] - systolic [facility] blood pressure 2022-06-20 13:10:00 80 mm[Hg] [facility] - diastolic [facility] height 2022-06-05 09:00:00 65.0 [in_i] [facility] weight 2022-06-05 09:00:00 131 [lb_av] [facility] 2022-06-05 09:00:00 21.8 kg/m2 [facility] height 2022-05-16 14:20:00 65.0 [in_i] Common [facility] weight 2022-05-16 14:20:00 131 [lb_av] [facility] temperature 2022-05-16 14:20:00 97.6 [degF] [facility] bmi 2022-05-16 14:20:00 21.8 kg/m2 [facility] oximetry 2022-05-16 14:20:00 94 % [facility] respiratory rate 2022-05-16 14:20:00 16 /min Comm on [facility] blood pressure 2022-05-16 14:20:00 133 mm[Hg] [facility] - systolic [facility] blood pressure 2022-05-16 14:20:00 64 mm[Hg] [facility] - diastolic [facility] height 2022-05-16 14:30:00 65.0 [in_i] [facility] weight 2022-05-16 14:30:00 131 [lb_av] [facility] temperature 2022-05-16 14:30:00 97.6 [degF] [facility] bmi 2022-05-16 14:30:00 21.8 kg/m2 [facility] oximetry 2022-05-16 14:30:00 94 % [facility] respiratory rate 2022-05-16 14:30:00 16 /min Comm on [facility] blood pressure 2022-05-16 14:30:00 133 mm[Hg] [facility] [place] [place] systolic [facility] blood pressure 2022-05-16 14:30:00 64 mm[Hg] [facility] [place] diastolic [facility] Systolic blood 2023-07-10 15:40:00 139 mm[Hg] Method [facility] pressure Diastolic blood 2023-07-10 15:40:00 65 mm[Hg] [facility] pressure Heart rate 2023-07-10 15:40:00 68 /min [facility] Body temperature 2023-07-10 15:40:00 36.44 Mari [facility] Respiratory rate 2023-07-10 15:40:00 14 /min [facility] Body height 2023-07-10 15:40:00 162.6 cm [facility] Body weight 2023-07-10 15:40:00 55.157 kg [facility] BMI 2023-07-10 15:40:00 20.87 kg/m2 [facility] Oxygen saturation in 2023-07-10 15:40:00 97 /min [facility] Arterial blood by Pulse oximetry Heart rate 2023-04-12 21:30:00 80 /min [facility] Respiratory rate 2023-04-12 21:30:00 16 /min [facility] Oxygen saturation in 2023-04-12 21:30:00 93 /min [facility] Arterial blood by Pulse oximetry Systolic blood 2023-04-12 21:20:00 131 mm[Hg] Method [facility] Hospital pressure Diastolic blood 2023-04-12 21:20:00 65 mm[Hg] [facility] pressure Body temperature 2023-04-12 16:35:00 36.22 Mari [facility] Body height 2023-04-12 16:35:00 162.6 cm [facility] Body weight 2023-04-12 16:35:00 55.339 kg [facility] BMI 2023-04-12 16:35:00 20.94 kg/m2 [facility] Systolic blood 2023-02-26 16:07:00 148 mm[Hg] Method [facility] pressure Diastolic blood 2023-02-26 16:07:00 65 mm[Hg] [facility] pressure Heart rate 2023-02-26 16:07:00 81 /min [facility] Body temperature 2023-02-26 16:07:00 37 Mari [facility] Respiratory rate 2023-02-26 16:07:00 14 /min [facility] Body height 2023-02-26 16:07:00 165.1 cm [facility] Body weight 2023-02-26 16:07:00 56.337 kg [facility] BMI 2023-02-26 16:07:00 20.67 kg/m2 [facility] Oxygen saturation in 2023-02-26 16:07:00 96 /min [facility] Arterial blood by Pulse oximetry Body height 2021-10-25 17:49:00 165.1 cm [facility] Body weight 2021-10-25 17:49:00 61.236 kg [facility] BMI 2021-10-25 17:49:00 22.47 kg/m2 [facility] Procedures Procedure Date / Time Performing Clinician Source Performed MRI THORACIC SPINE WO 2023-05-29 23:59:34 Scott Partida [facility] CONTRAST XR LUMBAR SPINE 2 OR 3 VW 2023-05-28 15:51:29 Scott Partida [facility] POCT MOLECULAR STREP 2023-04-25 17:01:00 Unknown, [facility] SURGICAL PATHOLOGY 2023-04-12 20:20:00 Harsh Lomeli [facility] REQUEST IR NEEDLE BIOPSY 2023-04-12 19:41[facility] 2023-04-12 19:41:11 Harsh Lomeli [facility] LUMBAR IR KYPHOPLASTY FST VERT 2023-04-12 19:41:11 Harsh Lomeli [facility] BODY LUMBA ECG 12-LEAD 2023-04-12 17:26:25 Ellie Ward [facility] CBC WITH PLATELET AND 2023-04-09 17:51:00 Harsh Lomeli [facility] DIFFERENTIAL COMPREHENSIVE METABOLIC 2023-04-09 17:51:00 Harsh Lomeli [facility] PANEL PROTHROMBIN TIME WITH INR 2023-04-09 17:51:00 Harsh Lomeli [facility] PARTIAL THROMBOPLASTIN 2023-04-09 17:51:00 Harsh Lomeli [facility] TIME (PTT) MRI LUMBAR SPINE WO 2023-03-12 20:08:00 Harsh Lomeli [facility] CONTRAST XR CHEST 2 VW 2022-11-22 20:09:34 [facility] Chuck [facility] PULMONARY FUNCTION TEST 2022-11-22 18:34:09 Chuck Watts [facility] IR KYPHOPLASTY FST VERT 2022-10-05 16:11:31 Harsh Lomeli [facility] BODY LUMBA COVID-19 QUALITATIVE 2022-10-03 18:30:00 Lily Dao [facility] RT-PCR CBC WITH PLATELET AND 2022-10-03 18:30:00 Lily Dao [facility] DIFFERENTIAL BASIC METABOLIC PANEL 2022-10-03 18:30:00 Pottmeyer, Lily [facility] PROTHROMBIN TIME WITH INR 2022-10-03 18:30:[facility] ESTIMATED GFR 2022-10-03 18:30:[address] [facility] CONSENT/REFUSAL FOR 2022-09-28 15:43:17 Doctor Unassigned, [facility] DIAGNOSIS AND TREATMENT [facility] MRI LUMBAR SPINE WO 2022-09-18 19:15:58 Harsh Lomeli [facility] CONTRAST SLEEP STUDY DATA REPORT 2022-07-26 05:01:00 Doctor Unassigned, [facility] FLU 2022-07-18 16:06:31 Reed Almendarez [facility] VACC(),65+YR,0.5 Medica l Branch ML,IM,ADJUVANTED,QUAD(FLU AD) XR SHOULDER 2+ VW RIGHT 2021-10-25 17:49:05 Ariana Perez [facility] [place] ARTHROCENTESIS 2021-10-25 17:00:00 Chris [facility] ASPIR&/INJ MAJOR JT/BURSA W/O US MRI LUMBAR SPINE WO 2021-10-06 18:10:45 Harsh Lomeli [facility] CONTRAST MRI THORACIC SPINE WO 2021-10-06 17:55:34 Harsh Lomeli [facility] CONTRAST Plan of Care Planned Activity Planned Date Details Comments Source Future Scheduled 2023-08-14 Hepatitis C screening [facility] Test 11:10:10 (procedure) [code = 678086530] Future Scheduled 2023-08-14 SHINGLES VACCINES (1 Met [facility] Test 11:10:10 of 2) [code = SHINGLES VACCINES (1 of 2)] Future Scheduled 2023-08-14 65+ PNEUMOCOCCAL [facility] Test 11:10:10 VACCINE (2 - PCV) [code = 65+ PNEUMOCOCCAL VACCINE (2 - PCV)] Future Scheduled 2023-08-14 COVID-19 VACCINE (2 - [facility] Test 11:10:10 season) [code = COVID-19 VACCINE (2 - season)] Future Scheduled 2023-08-14 INFLUENZA VACCINE (#1) M [facility] Test 11:10:10 [code = INFLUENZA VACCINE (#1)] Future Scheduled 2023-08-14 Hepatitis C screening [facility] Test 11:10:10 (procedure) [code = 531196139] Future Scheduled 2023-08-14 SHINGLES VACCINES (1 Met [facility] Test 11:10:10 of 2) [code = SHINGLES VACCINES (1 of 2)] Future Scheduled 2023-08-14 65+ [facility] 11:10:10 VACCINE (2 - PCV) [code = 65+ PNEUMOCOCCAL VACCINE (2 - PCV)] Future Scheduled 2023-08-14 COVID-19 VACCINE (2 - [facility] Hospital Test 11:10:10 season) [code = COVID-19 VACCINE (2 - season)] Future Scheduled 2023-08-14 INFLUENZA VACCINE (#1) [facility] Test 11:10:10 [code = INFLUENZA VACCINE (#1)] Future Scheduled 2023-08-14 Hepatitis C screening [facility] Test 11:10:10 (procedure) [code = 131734081] Future Scheduled 2023-08-14 SHINGLES VACCINES (1 Met [facility] Test 11:10:10 of 2) [code = SHINGLES VACCINES (1 of 2)] Future Scheduled 2023-08-14 65[facility] 11:10:10 VACCINE (2 - PCV) [code = 65+ PNEUMOCOCCAL VACCINE (2 - PCV)] Future Scheduled 2023-08-14 COVID-19 VACCINE (2 - [facility] Hospital Test 11:10:10 season) [code = COVID-19 VACCINE (2 - season)] Future Scheduled 2023-08-14 INFLUENZA VACCINE (#1) [facility] Test 11:10:10 [code = INFLUENZA VACCINE (#1)] Future Scheduled 2023-04-12 [facility] 13:53:59 malignant neoplasm of colon (procedure) [code = 134164387] Future Scheduled 2023-04-12 [facility] Test 13:53:59 malignant neoplasm of colon (procedure) [code = 397738602] Future Scheduled 2023-04-12 [facility] Test 13:53:59 malignant neoplasm of colon (procedure) [code = 146066352] Future Scheduled 2023-04-12 Hepatitis C screening [facility] Test 13:53:59 (procedure) [code = 555600644] Future Scheduled 2023-04-12 BREAST CANCER [facility] Test 13:53:59 SCREENING [code = BREAST CANCER SCREENING] Future Scheduled 2023-04-12 Screening for [facility] Test 13:53:59 malignant neoplasm of colon (procedure) [code = 883341211] Future Scheduled 2023-04-12 Screening for [facility] Test 13:53:59 malignant neoplasm of colon (procedure) [code = 069518924] Future Scheduled 2023-04-12 SHINGLES VACCINES (1 [facility] Test 13:53:59 of 2) [code = SHINGLES VACCINES (1 of 2)] Future Scheduled 2023-04-12 COVID-19 VACCINE (2 - Me [facility] Test 13:53:59 Booster for Joe series) [code = COVID-19 VACCINE (2 - Booster for Joe series)] Future Scheduled 2023-04-12 65[facility] 13:53:59 VACCINE (2 - PCV) [code = 65+ PNEUMOCOCCAL VACCINE (2 - PCV)] Future Scheduled 2023-04-12 INFLUENZA VACCINE [facility] Test 13:53:59 [code = INFLUENZA VACCINE] Future Scheduled 2023-03-19 Hepatitis C screening [facility] Test 06:39:07 (procedure) [code = 685529136] Future Scheduled 2023-03-19 BREAST CANCER [facility] Test 06:39:07 SCREENING [code = BREAST CANCER SCREENING] Future Scheduled 2023-03-19 COLONOSCOPY SCREENING [facility] Test 06:39:07 [code = COLONOSCOPY SCREENING] Future Scheduled 2023-03-19 SHINGLES VACCINES (1 Met [facility] Test 06:39:07 of 2) [code = SHINGLES VACCINES (1 of 2)] Future Scheduled 2023-03-19 COVID-19 VACCINE (2 - Me [facility] Test 06:39:07 Booster for Joe series) [code = COVID-19 VACCINE (2 - Booster for Joe series)] Future Scheduled 2023-03-19 65+ [facility] 06:39:07 VACCINE (2 - PCV) [code = 65+ PNEUMOCOCCAL VACCINE (2 - PCV)] Future Scheduled 2023-03-19 INFLUENZA VACCINE [facility] Test 06:39:07 [code = INFLUENZA VACCINE] Future Scheduled 2022-06-20 Hepatitis C screening [facility] Test 22:23:42 (procedure) [code = 121607668] Future Scheduled 2022-06-20 BREAST CANCER [facility] Test 22:23:42 SCREENING [code = BREAST CANCER SCREENING] Future Scheduled 2022-06-20 COLONOSCOPY SCREENING [facility] Test 22:23:42 [code = COLONOSCOPY SCREENING] Future Scheduled 2022-06-20 SHINGLES VACCINES (1 [facility] Test 22:23:42 of 2) [code = SHINGLES VACCINES (1 of 2)] Future Scheduled 2022-06-20 65+ [facility]AL [facility] Test 22:23:42 VACCINE (2 - PCV) [code = 65+ PNEUMOCOCCAL VACCINE (2 - PCV)] Future Scheduled 2022-06-20 INFLUENZA VACCINE Method [facility] Test 22:23:42 [code = INFLUENZA VACCINE] Future Scheduled 2022-06-20 HEPATITIS B VACCINES [facility] Test 22:23:42 (1 of 3 - 3-dose series) [code = HEPATITIS B VACCINES (1 of 3 - 3-dose series)] Future Scheduled 2022-06-20 COVID-19 VACCINE (#1) [facility] Test 22:23:42 [code = COVID-19 VACCINE (#1)] Future Scheduled 2021-11-21 COVID-19 VACCINE (1) [facility] Test 15:45:20 [code = COVID-19 VACCINE (1)] Future Scheduled 2021-11-21 Hepatitis C screening [facility] Test 15:45:20 (procedure) [code = 142893646] Future Scheduled 2021-11-21 BREAST CANCER [facility] Test 15:45:20 SCREENING [code = BREAST CANCER SCREENING] Future Scheduled 2021-11-21 COLONOSCOPY SCREENING [facility] Test 15:45:20 [code = COLONOSCOPY SCREENING] Future Scheduled 2021-11-21 SHINGLES VACCINES (#1) [facility] Test 15:45:20 [code = SHINGLES VACCINES (#1)] Future Scheduled 2021-11-21 INFLUENZA VACCINE [facility] Test 15:45:20 [code = INFLUENZA VACCINE] Encounters Start End Encounter Admission Attending Care Care Encounter Source Date/Time Date/Time Type Type Clinicians Facility Department ID 2023-08-26 Outpatient [facility], [facility] [id number] Common 13:42:00 Lonnie [id number] [facility] 2023-03-22 Outpatient Gonzales, STLMLC [facility] [id number] Common 13:30:00 Lonnie [id number] [facility] 2021-11-15 Outpatient Gonzales, STLMLC [facility] [id number] Common 14:33:19 Lonnie [facility] 2021-11-15 Outpatient Gonzales, STLMLC [facility] [id number] Common 13:32:47 Lonnie [id number] [facility] 2021-11-15 Outpatient Gonzales, STLMLC [facility] [id number] Common 13:31:54 Lonnie [id number] [facility] 2021-11-15 Outpatient Gonzales, STLMLC [facility] [id number] Common 13:31:14 Lonnie [id number] [facility] 2021-11-15 Outpatient STLMLC [facility] [id number] Common 13:17:33 [id number] [facility] 2021-08-17 Outpatient R MAE [facility] LIZZ [id number] Univers 18:39:26 LAURA Headley [facility] 2023-08-17 2023-08-17 Outpatient GC_[id number] PRIV PRIV [id number] [facility] 00:00:00 00:00:00 diyala_S [id number] Medic al 2023-07-10 2023-07-10 Diego Partida 1.2.840.1 [id number] Methodi 13:10:00 13:34:44 Visit Scott Wall 66704.1.1 013 s t 3.430.2.7 Hospit a .3.389249 l .8 2023-07-10 2023-07-10 Tiff Najera.2.840.1 [id number] Methodi 13:10:00 13:34:44 Visit Scott Chan50.1.1 013 s t 3.430.2.7 Hospit a .3.901232 l .8 2023-07-10 2023-07-10 Office Watts, 1.2.840.1 [id number] Methodi 10:30:00 11:27:41 Visit Chuck Chan50.1.[address] 3.430.2.7 Hospit a .3.557130 l .8 2023-07-10 2023-07-10 Office Watts, 1.2.840.1 [id number] Methodi 10:30:00 11:27:41 Visit Chuck Chan50.1.[address] 3.430.2.7 Hospit a .3.529345 l .8 2023-05-30 2023-05-30 Orders Calos, 1.2.840.1 [id number] Methodi 00:00:00 00:00:00 Only Marti S. 52174.1.[address] 3.430.2.7 Hospit a .3.763948 l .8 2023-05-30 2023-05-30 Orders Calos, 1.2.840.1 [id number] [id number] Methodi 00:00:00 00:00:00 Only Marti S. 18151.1.[address] 3.430.2.7 Hospit a .3.980096 l .8 2023-05-29 2023-05-29 [facility], 1.2.840.1 [id number] Methodi 17:40:27 23:59:00 Encounter Scott Chan50.1.[address] 3.430.2.7 Hospit a .3.105465 l .8 2023-05-29 2023-05-29 [facility] 1.2.840.1 [id number] Methodi 17:40:27 23:59:00 Encounter Scott Chan50.1.[address] 3.430.2.7 Hospit a .3.857386 l .8 2023-05-28 2023-05-28 Office Katia, 1.2.840.1 [id number] Methodi 10:20:00 11:24:02 Visit Scott Wall 89484.1.1 047 s t 3.430.2.7 Hospit a .3.520724 l .8 2023-05-28 2023-05-28 Office Katia, 1.2.840.1 [id number] Methodi 10:20:00 11:24:02 Visit Scott Wall 63985.1.1 047 s t 3.430.2.7 Hospit a .3.270185 l .8 2023-05-28 2023-05-28 Outpatient [facility] [facility] [id number] [place] 00:00:00 00:00:00 SCOTT Etienne [facility] 2023-05-07 2023-05-07 Outpatient TREMAINE WORKMAN [facility] [id number] Univers 13:40:00 17:07:31 TREMAINE CHAUDHRY [facility] 2023-05-07 2023-05-07 [facility] 1.2.840.114 [id number] [facility] 13:40:00 17:07:31 Visit [facility] 350.1.13.10 [facility] 4.2.7.2.686 Viraj as TIFFANIE?BLEA [phone] [address] OFFICE [facility] 2023-04-30 2023-04-30 Telephone Miki Vieyra 1.2.840.1 [id number] Methodi 00:00:00 00:00:[address] 3.430.2.7 Hospit a .3.803467 l .8 2023-04-30 2023-04-30 Telephone Miki Vieyra 1.2.840.1 [id number] Methodi 00:00:00 00:00:[address] 3.430.2.7 Hospit a .3.829560 l .8 2023-04-25 2023-04-25 Outpatient Myesha RUVALCABA [facility] [id number] Univers 11:40:00 12:28:08 KRISTY earl of [facility] 2023-04-25 2023-04-25 Urgent Kristy Ruvalcaba [facility] 1.2.840.11 4 [id number] Univers 11:40:00 12:28:08 Care Unknown, Attending HEALTH 350.1.13.10 ity [facility] 4.2.7.2.686 Viraj as TIFFANIE?BLEA [phone] [address] MEDICAL OFFICE BUILDING 2023-04-18 2023-04-18 Telephone Miki Vieyra 1.2.840.1 [id number] Methodi 00:00:00 00:00:[address] 3.430.2.7 Hospit a .3.285759 l .8 2023-04-18 2023-04-18 Telephone Miki Vieyra 1.2.840.1 [id number] Methodi 00:00:00 00:00:[address] 3.430.2.7 Hospit a .3.863013 l .8 2023-04-12 2023-04-12 [facility], 1.2.840.1 [id number] 21001 75415 Methodi 11:13:30 23:59:00 Encounter Harsh Ayala 35874.1.[address] 3.430.2.7 Hospit a .3.443906 l .8 2023-04-12 2023-04-12 [facility] 1.2.840.1 [id number] 21001 85917 Methodi 11:13:30 23:59:00 Encounter Harsh Ayala 36834.1.[address] 3.430.2.7 Hospit a .3.677587 l .8 2023-04-12 2023-04-12 Anesthesia Ey, 1.2.840.1 990417097 189 3867569 Methodi 12:38:00 13:44:00 Event Ellie Howell 18280.1.[address] 3.430.2.7 Hospit a .3.111788 l .8 2023-04-12 2023-04-12 Anesthesia Eype, 1.2.840.1 [id number] 131 4867544 Methodi 12:38:00 13:44:00 Event Ellie Howell 10364.1.[address] 3.430.2.7 Hospit a .3.013037 l .8 2023-04-12 2023-04-12 Travel 1.2.840.1 1.2.466.278 6544 167792 Methodi 00:00:00 00:00:[address] 3.430.2.7 0.2.7.3.698 Ho spita .3.478768 084.8 l .8 2023-04-12 2023-04-12 Travel 1.2.840.1 1.2.491.262 8189 405368 Methodi 00:00:00 00:00:[address] 3.430.2.7 0.2.7.3.698 Ho spita .3.486405 084.8 l .8 2023-04-09 2023-04-09 Office Mac, 1.2.840.1 798073238 079733 6220 Methodi 10:45:00 11:37:37 Visit Chuck Wall 26704.1.[address] 3.430.2.7 Hospit a .3.548739 l .8 2023-04-09 2023-04-09 Office Mac, 1.2.840.1 740652150 640757 9807 Methodi 10:45:00 11:37:37 Visit Chuck Wall 50359.1.[address] 3.430.2.7 Hospit a .3.052869 l .8 2023-04-05 2023-04-05 Orders Christiano, 1.2.840.1 [id number] 043166 3889 Methodi 00:00:00 00:00:00 Only Susan 85898.1.[address] 3.430.2.7 Hospit a .3.980580 l .8 2023-04-05 2023-04-05 Telephone [employer], 1.2.840.1 [id number] 2100 128480 Methodi 00:00:00 00:00:00 Harsh Ayala 22045.1.1 055 s t 3.430.2.7 Hospit a .3.788592 l .8 2023-04-05 2023-04-05 Orders Alvarado, 1.2.840.1 [id number] 173353 0614 Methodi 00:00:00 00:00:00 Only Susan 72546.1.[address] 3.430.2.7 Hospit a .3.864260 l .8 2023-04-05 2023-04-05 Telephone [employer], 1.2.840.1 713820609 2100 822198 Methodi 00:00:00 00:00:00 Harsh Ayala 84067.1.1 055 s t 3.430.2.7 Hospit a .3.279836 l .8 2023-04-03 2023-04-03 Orders Alvarado, 1.2.840.1 250131751 219571 8882 Methodi 00:00:00 00:00:00 Only Susan 27004.1.[address] 3.430.2.7 Hospit a .3.872280 l .8 2023-04-03 2023-04-03 Orders Alvarado, 1.2.840.1 140751966 828942 5956 Methodi 00:00:00 00:00:00 Only Susan 30971.1.[address] 3.430.2.7 Hospit a .3.548458 l .8 2023-03-28 2023-03-28 Office [employer], 1.2.840.1 841391973 545393 8793 Methodi 10:45:00 11:26:07 Visit Harhs Ayala 99616.1.1 570 s t 3.430.2.7 Hospit a .3.267944 l .8 2023-03-28 2023-03-28 Office [employer], 1.2.840.1 484238213 549373 0205 Methodi 10:45:00 11:26:07 Visit Harsh Ayala 20820.1.1 570 s t 3.430.2.7 Hospit a .3.740929 l .8 2023-03-28 2023-03-28 Orders Darshan, 1.2.840.1 084008755 63934 79296 Methodi 00:00:00 00:00:00 Only Cisco BrunnerShirley 28571.1.[address] 3.430.2.7 Hospit a .3.051807 l .8 2023-03-28 2023-03-28 Orders Darshan, 1.2.840.1 890246808 25171 Methodi 00:00:00 00:00:00 Only Cisco BrunnerShirley 53696.1.[address] 3.430.2.7 Hospit a .3.870786 l .8 2023-03-15 2023-03-15 Telephone [employer], 1.2.840.1 848069293 2100 270842 Methodi 00:00:00 00:00:00 Harsh Ayala 36186.1.1 581 s t 3.430.2.7 Hospit a .3.084292 l .8 2023-03-15 2023-03-15 [facility], 1.2.840.1 [id number] 2099 448469 Methodi 00:00:00 00:00:00 Harsh Chan50.1.1 581 s t 3.430.2.7 Hospit a .3.357219 l .8 2023-03-12 2023-03-12 [facility], 1.2.840.1 387526250 85425 Methodi 14:03:45 23:59:00 Encounter Harsh Ayala 07538.1.[address] 3.430.2.7 Hospit a .3.656572 l .8 2023-03-12 2023-03-12 [facility], 1.2.840.1 520827470 00351 Methodi 14:03:45 23:59:00 Encounter Harsh Ayala 26849.1.[address] 3.430.2.7 Hospit a .3.789972 l .8 2023-03-12 2023-03-12 [facility], 1.2.840.1 033429228 798272 1694 Methodi 11:00:00 13:53:20 Visit Harsh Ayala 71010.1.1 008 s t 3.430.2.7 Hospit a .3.825816 l .8 2023-03-12 2023-03-12 Office Demetrius, 1.2.840.1 269853305 198386 7686 Methodi 11:00:00 13:53:20 Visit Harsh Ayala 34308.1.1 008 s t 3.430.2.7 Hospit a .3.966035 l .8 2023-03-12 2023-03-12 Orders Alvarado, 1.2.840.1 052116623 524794 8905 Methodi 00:00:00 00:00:00 Only Susan 82374.1.[address] 3.430.2.7 Hospit a .3.173715 l .8 2023-03-12 2023-03-12 Orders Christiano, 1.2.840.1 015519466 226451 8550 Methodi 00:00:00 00:00:00 Only Susan 32043.1.[address] 3.430.2.7 Hospit a .3.381715 l .8 2023-03-12 2023-03-12 Travel 1.2.840.1 1.2.269.725 1403 455131 Methodi 00:00:00 00:00:[address] 3.430.2.7 0.2.7.3.698 Ho spita .3.542894 084.8 l .8 2023-03-12 2023-03-12 Telephone [place], 1.2.840.1 300268038 2100 810182 Methodi 00:00:00 00:00:[address] Chuck [address] 46372.1.[address] 3.430.2.7 Hospit a .3.436164 l .8 2023-03-12 2023-03-12 Orders Alvarado, 1.2.840.1 016089917 999839 9570 Methodi 00:00:00 00:00:00 Only Susan 86705.1.[address] 3.430.2.7 Hospit a .3.184961 l .8 2023-03-12 2023-03-12 Orders Alvarado, 1.2.840.1 124177454 323818 4182 Methodi 00:00:00 00:00:00 Only Susan 11311.1.[address] 3.430.2.7 Hospit a .3.934821 l .8 2023-03-12 2023-03-12 Travel 1.2.840.1 1.2.593.156 9394 646077 Methodi 00:00:00 00:00:[address] 3.430.2.7 0.2.7.3.698 Ho spita .3.731681 084.8 l .8 2023-03-12 2023-03-12 Telephone Mac, 1.2.840.1 628821045 2099 809457 Methodi 00:00:00 00:00:00 Chuck Wall 10227.1.[address] 3.430.2.7 Hospit a .3.069953 l .8 2023-03-01 2023-03-01 Travel 1.2.840.1 1.2.430.840 1445 404769 Methodi 00:00:00 00:00:[address] 3.430.2.7 0.2.7.3.698 Ho spita .3.364168 084.8 l .8 2023-03-01 2023-03-01 Travel 1.2.840.1 1.2.433.394 5237 643254 Methodi 00:00:00 00:00:[address] 3.430.2.7 0.2.7.3.698 Ho spita .3.361932 084.8 l .8 2023-02-26 2023-02-26 Office Watts, 1.2.840.1 508723638 954591 7714 Methodi 10:30:00 12:01:43 Visit Chuck B. 78073.1.[address] 3.430.2.7 Hospit a .3.703064 l .8 2023-02-26 2023-02-26 Office Mac, 1.2.840.1 826763090 707487 3633 Methodi 10:30:00 12:01:43 Visit Chuck Wall 59295.1.[address] 3.430.2.7 Hospit a .3.149740 l .8 2023-02-26 2023-02-26 Travel 1.2.840.1 1.2.875.298 3331 838456 Methodi 00:00:00 00:00:[address] 3.430.2.7 0.2.7.3.698 Ho spita .3.169382 084.8 l .8 2023-02-26 2023-02-26 Travel 1.2.840.1 1.2.973.972 0724 718827 Methodi 00:00:00 00:00:[address] 3.430.2.7 0.2.7.3.698 Ho spita .3.527312 084.8 l .8 2023-01-28 2023-01-28 Outpatient Myesha COMBS [facility] [id number] 768 Univers 10:30:00 10:30:00 [place] earl [facility] 2022-12-27 2022-12-27 Office Mac 1.2.840.1 333173728 907242 0175 Methodi 11:15:00 12:17:40 Visit Chuck Wall 61740.1.[address] 3.430.2.7 Hospit a .3.475681 l .8 2022-12-27 2022-12-27 Office Mac, 1.2.840.1 257610336 642505 7112 Methodi 11:15:00 12:17:40 Visit Chuck Wall 87768.1.[address] 3.430.2.7 Hospit a .3.747159 l .8 2022-12-27 2022-12-27 Travel 1.2.840.1 1.2.800.929 3285 483696 Methodi 00:00:00 00:00:[address] 3.430.2.7 0.2.7.3.698 Ho spita .3.659960 084.8 l .8 2022-12-27 2022-12-27 Travel 1.2.840.1 1.2.884.703 6017 568369 Methodi 00:00:00 00:00:[address] 3.430.2.7 0.2.7.3.698 Ho spita .3.558928 084.8 l .8 2022-12-18 2022-12-18 Orders Darshan, 1.2.840.1 508296901 53809 Methodi 00:00:00 00:00:00 Only Cisco Alejandre 17664.1.[address] 3.430.2.7 Hospit a .3.001091 l .8 2022-12-18 2022-12-18 Orders Darshan, 1.2.840.1 358112918 21001 59849 Methodi 00:00:00 00:00:00 Only Cisco Alejandre 27519.1.[address] 3.430.2.7 Hospit a .3.568110 l .8 2022-12-18 2022-12-18 OFFICE [facility] [id number] Co mmon 00:00:00 00:00:00 VISIT Spirit ESTAB PT - CHI LEVEL 4 [facility] 2022-12-17 2022-12-17 Telephone Demetrius, 1.2.840.1 308818599 2099 712755 Methodi 00:00:00 00:00:00 Harsh Ayala 77064.1.1 925 s t 3.430.2.7 Hospit a .3.403217 l .8 2022-12-17 2022-12-17 Telephone Demetrius, 1.2.840.1 100358935 2099 152093 Methodi 00:00:00 00:00:00 Harsh Ayala 00939.1.1 925 s t 3.430.2.7 Hospit a .3.334136 l .8 2022-12-05 2022-12-05 OFFICE [facility] [id number] Co mmon 00:00:00 00:00:00 VISIT [facility] PT - CHI LEVEL 3 [facility] 2022-12-03 2022-12-03 (TEL) STLMLC ST[facility] [id number] Co mmon 00:00:00 00:00:00 Spirit [facility] 2022-11-22 2022-11-22 [facility], 1.2.840.1 367595653 99372 10859 Methodi 13:54:51 23:59:00 Encounter Chuck Chan50.1.[address] 3.430.2.7 Hospit a .3.402234 l .8 2022-11-22 2022-11-22 [facility], 1.2.840.1 831200073 97792 10844 Methodi 13:54:51 23:59:00 Encounter Chuck Wall 99918.1.[address] 3.430.2.7 Hospit a .3.461573 l .8 2022-11-22 2022-11-22 Clinical Anatoly, 1.2.840.1 032686245 2100 671299 Methodi 10:30:00 15:44:21 Support Silvia 35786.1.[address] 3.430.2.7 Hospit a .3.280097 l .8 2022-11-22 2022-11-22 Clinical Anatoly, 1.2.840.1 098673044 2100 234445 Methodi 10:30:00 15:44:21 Support Silvia 80122.1.[address] 3.430.2.7 Hospit a .3.381101 l .8 2022-11-22 2022-11-22 Office Watts, 1.2.840.1 703365242 460822 6884 Methodi 11:45:00 14:41:41 Visit Chuck Wall 90209.1.[address] 3.430.2.7 Hospit a .3.793406 l .8 2022-11-22 2022-11-22 Office Mac, 1.2.840.1 259055321 727837 0303 Methodi 11:45:00 14:41:41 Visit Chuck Wall 30404.1.[address] 3.430.2.7 Hospit a .3.975667 l .8 2022-11-22 2022-11-22 Rangel Ron, 1.2.840.1 883307189 134110 8677 Methodi 00:00:00 00:00:00 Only Tracy 70204.1.[address] 3.430.2.7 Hospit a .3.844703 l .8 2022-11-22 2022-11-22 Travel 1.2.840.1 1.2.690.735 6995 015531 Methodi 00:00:00 00:00:[address] 3.430.2.7 0.2.7.3.698 Ho spita .3.945571 084.8 l .8 2022-11-22 2022-11-22 Rangel Ron, 1.2.840.1 884222097 377234 8278 Methodi 00:00:00 00:00:00 Only Tracy 37434.1.[address] 3.430.2.7 Hospit a .3.266898 l .8 2022-11-22 2022-11-22 Travel 1.2.840.1 1.2.767.946 6154 999385 Methodi 00:00:00 00:00:[address] 3.430.2.7 0.2.7.3.698 Ho spita .3.042070 084.8 l .8 2022-11-13 2022-11-13 Office Demetrius, 1.2.840.1 305227854 644202 7814 Methodi 11:15:00 13:44:37 Visit Harsh BrittanyShirley 59933.1.1 674 s t 3.430.2.7 Hospit a .3.081529 l .8 2022-11-13 2022-11-13 Office Demetrius, 1.2.840.1 939889339 643416 0189 Methodi 11:15:00 13:44:37 Visit Harsh Ayala 40897.1.1 674 s t 3.430.2.7 Hospit a .3.148984 l .8 2022-11-13 2022-11-13 Orders Buchkalee, 1.2.840.1 463134443 09638 Methodi 00:00:00 00:00:00 Only Cisco Alejandre 38285.1.[address] 3.430.2.7 Hospit a .3.429437 l .8 2022-11-13 2022-11-13 Orders Darshan, 1.2.840.1 100298745 20893 Methodi 00:00:00 00:00:00 Only Cisco Alejandre 05809.1.[address] 3.430.2.7 Hospit a .3.070579 l .8 2022-11-07 2022-11-07 Travel 1.2.840.1 1.2.253.399 8890 769961 Methodi 00:00:00 00:00:[address] 3.430.2.7 0.2.7.3.698 Ho spita .3.913950 084.8 l .8 2022-11-07 2022-11-07 Travel 1.2.840.1 1.2.040.461 5937 130288 Methodi 00:00:00 00:00:[address] 3.430.2.7 0.2.7.3.698 Ho spita .3.023601 084.8 l .8 2022-10-31 2022-10-31 Office Tanesha [facility] 1.2.246.685 3421 8781 [facility] 14:00:00 14:30:00 Visit Reed VILLAFUERTE 350.1.13.10 A[place] 4.2.7.2.686 [place] PROFESS[place] [id number] [address] 2022-10-31 2022-10-31 Outpatient R REED ALMENDAREZ [facility] [id number] Univers 14:00:00 14:00:00 REED ALMENDAREZ [facility] 2022-10-10 2022-10-10 Outpatient R REED ALMENDAREZ [facility] [id number] Univers 10:30:00 10:30:00 REED ALMENDAREZ [facility] 2022-10-05 2022-10-05 [facility], 1.2.840.1 [id number] 40254 Methodi 06:50:14 23:59:00 Encounter Harsh Ayala 21715.1.[address] 3.430.2.7 Hospit a .3.831141 l .8 2022-10-05 2022-10-05 [facility] 1.2.840.1 [id number] 43418 Methodi 06:50:14 23:59:00 Encounter Harsh Ayala 50260.1.[address] 3.430.2.7 Hospit a .3.805156 l .8 2022-10-05 2022-10-05 Anesthesia Duffy, Taco 1.2.840.1 058954620 21 73105685 Methodi 08:46:00 09:59:00 Event Kumar 64581.1.[address] 3.430.2.7 Hospit a .3.400873 l .8 2022-10-05 2022-10-05 Anesthesia Duffy, Taco 1.2.840.1 350464056 21 65664181 Methodi 08:46:00 09:59:00 Event Kumar 70491.1.[address] 3.430.2.7 Hospit a .3.332049 l .8 2022-10-05 2022-10-05 Travel 1.2.840.1 1.2.821.980 1338 303118 Methodi 00:00:00 00:00:[address] 3.430.2.7 0.2.7.3.698 Ho spita .3.954220 084.8 l .8 2022-10-05 2022-10-05 Travel 1.2.840.1 1.2.212.171 8621 838575 Methodi 00:00:00 00:00:[address] 3.430.2.7 0.2.7.3.698 Ho spita .3.918561 084.8 l .8 2022-10-03 2022-10-03 Lab Demetrius, 1.2.840.1 970094255 935909 5208 Methodi 12:10:00 12:15:00 Harsh Ayala 39723.1.1 210 s t 3.430.2.7 Hospit a .3.577023 l .8 2022-10-03 2022-10-03 Lab Demetrius, 1.2.840.1 312636310 917507 1997 Methodi 12:10:00 12:15:00 Harsh Ayala 06676.1.1 210 s t 3.430.2.7 Hospit a .3.481919 l .8 2022-10-03 2022-10-03 Travel 1.2.840.1 1.2.766.021 6314 986438 Methodi 00:00:00 00:00:[address] 3.430.2.7 0.2.7.3.698 Ho spita .3.222267 084.8 l .8 2022-10-03 2022-10-03 Telephone Sirls, 1.2.840.1 802145902 2100 [address]67887 Methodi 00:00:00 00:00:[address] 3.430.2.7 Hospit a .3.360995 l .8 2022-10-03 2022-10-03 Travel 1.2.840.1 1.2.033.528 3187 733730 Methodi 00:00:00 00:00:[address] 3.430.2.7 0.2.7.3.698 Ho spita .3.183579 084.8 l .8 2022-10-03 2022-10-03 Telephone [place]s, 1.2.840.1 261543296 2100 319517 Methodi 00:00:00 00:00:[address] 3.430.2.7 Hospit a .3.607231 l .8 2022-10-02 2022-10-02 Telephone Sirls, 1.2.840.1 209008470 2099 178197 Methodi 00:00:00 00:00:[address] 3.430.2.7 Hospit a .3.303700 l .8 2022-10-02 2022-10-02 Telephone Sirls, 1.2.840.1 037039713 2099 900336 Methodi 00:00:00 00:00:[address] 3.430.2.7 Hospit a .3.726060 l .8 2022-09-28 2022-09-28 Outpatient R TREMAINE CHAUDHRY [facility] [id number] Univers 10:00:00 10:13:10 TREMAINE CHAUDHRY itlobo of [facility] 2022-09-28 2022-09-28 Office Richa [facility] 1.2.840.114 00601 952 Univers 10:00:00 10:13:10 Visit [facility] 350.1.13.10 ity of [place] 4.2.7.2.686 Viraj as TIFFANIE?BLEA [id number] Oh [address] MEDICAL OFFICE BUILDING 2022-09-28 2022-09-28 Orders Doctor STEVE 1.2.840.114 657745 83 Univers 00:00:00 00:00:00 Only Unassigned, ANKIT 350.1.13.10 ity of [place] [facility] 4.2.7.2.686 Viraj as [id number] [address] 2022-09-27 2022-09-27 Office Demetrius 1.2.840.1 [id number] 146318 6170 Methodi 10:45:00 12:41:18 Visit Harsh Ayala 97959.1.1 114 s t 3.430.2.7 Hospit a .3.836497 l .8 2022-09-27 2022-09-27 Office Demetrius, 1.2.840.1 338545029 080248 2506 Methodi 10:45:00 12:41:18 Visit Harsh BrittanyShirley 48944.1.1 114 s t 3.430.2.7 Hospit a .3.159640 l .8 2022-09-27 2022-09-27 Orders Darshan, 1.2.840.1 028375277 71433 89265 Methodi 00:00:00 00:00:00 Only Cisco Alejandre 25184.1.[address] 3.430.2.7 Hospit a .3.095917 l .8 2022-09-27 2022-09-27 Orders Darshan, 1.2.840.1 540684142 44689 36217 Methodi 00:00:00 00:00:00 Only Cisco Alejandre 93543.1.[address] 3.430.2.7 Hospit a .3.868130 l .8 2022-09-21 2022-09-21 Travel 1.2.840.1 1.2.190.162 6437 891652 Methodi 00:00:00 00:00:[address] 3.430.2.7 0.2.7.3.698 Ho spita .3.148470 084.8 l .8 2022-09-21 2022-09-21 Travel 1.2.840.1 1.2.204.361 1149 981349 Methodi 00:00:00 00:00:[address] 3.430.2.7 0.2.7.3.698 Ho spita .3.380376 084.8 l .8 2022-09-18 2022-09-18 [id number] [address] 00:00:00 00:00:00 HARSH Jeff Method i st 2022-09-11 2022-09-11 Office Demetrius, 1.2.840.1 294011850 884899 4977 Methodi 11:00:00 11:27:41 Visit Harsh Ayala 23007.1.1 179 s t 3.430.2.7 Hospit a .3.252218 l .8 2022-09-11 2022-09-11 Office Demetrius 1.2.840.1 003658627 920934 3461 Methodi 11:00:00 11:27:41 Visit Harsh Ayala 92668.1.1 179 s t 3.430.2.7 Hospit a .3.452222 l .8 2022-09-05 2022-09-05 Outpatient R REED ALMENDAREZ [facility] [id number] Univers 11:00:00 11:00:00 REED ALMENDAREZ [facility] 2022-08-28 2022-08-28 Outpatient R TREMAINE CHAUDHRY [facility] [id number] Univers 15:30:00 16:03:47 TREMAINE CHAUDHRY lobo [facility] 2022-08-28 2022-08-28 Office [place] Combs [facility] 1.2.840.114 [id number] Univers 15:30:00 16:03:47 Visit Tremaine Chaudhry [facility] 350.1.13. 10 ity of [place] 4.2.7.2.686 Viraj as TIFFANIE?BLEA [phone] [address] OFFICE [facility] 2022-08-28 2022-08-28 [facility] 1.2.840.114 [id number] Univers 00:00:00 00:00:00 [place] [facility] 350.1.13.10 it y of [place] 4.2.7.2.686 Vriaj as TIFFANIE?BLEA [phone] [address] OFFICE [facility] 2022-07-26 2022-07-[address] Magistrate 1, [facility] Sleep Lab Bed [facility] 1. 2.840.114 [id number] Univers 20:00:00 22:30:00 Visit Reed Almendarez 350.1.13. 10 ity of [place].7.2.[place] [phone] [address] 2022-07-26 2022-07-26 Outpatient R DAVIDREED LOWE [facility] [id number] Univers 20:00:00 20:00:00 REED ALMENDAREZ ity [facility] 2022-07-26 2022-07-26 Orders Doctor WILSON 1.2.840.114 [id number] Univers 00:00:00 00:00:00 Only Unassigned, ANKIT 350.1.13.10 ity of [facility] 4.2.7.2.686 Viraj as [phone] [facility] [address] 2022-07-23 2022-07-23 (TEL) [facility] [id number] Co mmon 00:00:00 00:00:00 [facility] 2022-07-18 2022-07-18 Office Tanesha [facility] 1.2.285.675 [id number] Univers 11:00:00 11:20:00 Visit Reed VILLAFUERTE 350.1.13.10 ity [facility] 4.2.7.2.686 [place] [phone] Oh dical [facility] 2022-07-18 2022-07-18 Outpatient R DAVIDREED LOWE [facility] [id number] Univers 11:00:00 11:00:00 [facility] 2022-07-18 Outpatient R TANESHAKIANJKay [facility] [id number] Univers 11:00:00 11:00:00 REED ALMENDAREZ [facility] 2022-07-18 2022-07-18 (TEL) [facility] [id number] Co mmon 00:00:00 00:00:00 [facility] 2022-06-29 2022-06-29 Outpatient R TREMAINE CHAUDHRY [facility] [id number] Univers 14:40:00 15:17:28 TREMAINE CHAUDHRY [facility] 2022-06-29 2022-06-29 Office Richa [facility] 1.2.840.114 [id number] Univers 14:40:00 15:17:28 Visit [facility] 350.1.13.10 ity of [place] 4.2.7.2.686 Viraj as TIFFANIE?BLEA [phone] [address] MEDICAL OFFICE BUILDING 2022-06-29 2022-06-29 [facility] 1.2.840.114 [id number] Univers 00:00:00 00:00:00 [facility] 350.1.13.10 ity of [place] 4.2.7.2.686 Viraj as TIFFANIE?BLEA [phone] [address] MEDICAL OFFICE BUILDING 2022-06-26 2022-06-26 Orders Doctor STEVE 1.2.840.114 [id number] Univers 00:00:00 00:00:00 Only Unassigned, ANKIT 350.1.13.10 ity of [place] [facility] 4.2.7.2.686 Viraj as [phone] [address] 2022-06-20 2022-06-20 OFFICE [facility] [id number] Co mmon 00:00:00 00:00:00 VISIT [facility] PT - CHI LEVEL 4 [facility] 2022-06-05 2022-06-05 OL DIG E/M STLC STLC [id number] Common 00:00:00 00:00:00 [facility] 11-20 Spir it MIN [facility] 2022-06-05 2022-06-05 (TEL) ST[facility] STLC [id number] Co mmon 00:00:00 00:00:00 [facility] 2022-06-04 2022-06-04 (TEL) ST[facility] STLMLC [id number] Co mmon 00:00:00 00:00:00 [facility] 2022-06-04 2022-06-04 (TEL) ST[facility] STLC [id number] Co mmon 00:00:00 00:00:00 [facility] 2022-05-25 2022-05-25 [facility] 1.2.840.114 [id number] Univers 00:00:00 00:00:00 [facility] 350.1.13.10 ity of [facility] 4.2.7.2.686 Viraj as TIFFANIE?BLEA [phone] [place]md [place] [address] MEDICAL OFFICE BUILDING 2022-05-24 2022-05-24 (TEL) [facility] STLC [id number] Co mmon 00:00:00 00:00:00 [facility] - [facility] 2022-05-16 2022-05-16 OFFICE [facility] STLC [id number] Co mmon 00:00:00 00:00:00 VISIT [facility] ESTAB PT - CHI LEVEL 4 [facility] 2022-05-16 2022-05-16 SUB ANNUAL [facility] [id number] Common 00:00:00 00:00:00 [facility] Spirit WELLNESS - CHI VISIT [facility] 2022-04-13 2022-04-13 (TEL) [facility] [id number] Co mmon 00:00:00 00:00:00 Spirit [facility] 2022-03-11 2022-03-11 Refill Zahraa [facility] 1.2.840.114 [id number] Univers 00:00:00 00:00:00 Tejal VILLAFUERTE 350.1.13.10 ity of [place] [phone] [place] [address] [address] [facility] 2022-02-27 2022-02-27 (TEL) ST[facility] STLC [id number] Co mmon 00:00:00 00:00:00 [facility] - [facility] 2022-02-14 2022-02-14 (TEL) [facility] [id number] Co mmon 00:00:00 00:00:00 [facility] CHI [facility] 2022-01-08 2022-01-08 Ruslan Chaudhry [facility] 1.2.840.114 [id number] Univers 00:00:00 00:00:00 [facility] 350.1.13.10 ity of [facility] 4.2.7.2.686 Viraj as TIFFANIE?BLEA [id number] Me dic[address] MEDICAL OFFICE BUILDING 2021-12-20 2021-12-20 Orders Doctor WILSON 1.2.840.114 [id number] Univers 00:00:00 00:00:00 Only Unassigned, ANKIT 350.1.13.10 ity of [place] [facility] 4.2.7.2.686 Viraj as [id number] [address] 2021-12-18 2021-12-18 Outpatient R TREMAINE CHAUDHRY [facility] [id number] [facility] 10:40:00 11:10:32 TREMAINE CHAUDHRY itlobo [facility] 2021-12-13 2021-12-13 Orders Doctor WILSON 1.2.840.114 [id number] Univers 00:00:00 00:00:00 Only Unassigned, ANKIT 350.1.13.10 [facility] 4.2.7.2.686 Viraj as [phone] [address] 2021-10-25 2021-10-25 Office Chris 1.2.840.1 [id number] Methodi 11:00:00 12:33:49 Visit Ariana Luna 17237.1.[address] 3.430.2.7 Hospit a .3.584185 l .8 2021-10-25 2021-10-25 [id number] [address] [place] 00:00:00 00:00:00 ARIANA [address] 2021-10-24 2021-10-24 Orders Dagoberto 1.2.840.1 [id number] Methodi 00:00:00 00:00:00 Only Radha 88414.1.[address] 3.430.2.7 Hospit a .3.544703 l .8 2021-10-19 2021-10-19 Telephone Richa [facility] 1.2.840.114 [id number] [facility] 00:00:00 00:00:00 Tremaine [facility] 350.1.13.10 ity [facility] 4.2.7.2.686 Viraj as TIFFANIE?BLEA [phone] Oh dical [address] OFFICE [facility] 2021-10-18 2021-10-18 Telephone Ramirez Lomeli2.840.1 [id number] Methodi 10:00:00 10:15:00 Consult Harsh Ayala 87335.1.1 043 s t 3.430.2.7 Hospit a .3.685777 l .8 2021-10-16 2021-10-16 Outpatient Myesha CHAUDHRY TREMAINE [facility] [id number] Univers 09:20:00 10:00:34 TREMAINE CHAUDHRY [facility] 2021-10-16 2021-10-16 [facility] 1.2.840.114 [id number] Univers 09:20:00 10:00:34 Visit [facility] 350.1.13.10 [facility] 4.2.7.2.686 Viraj as TIFFANIE?BLEA [phone] [address] OFFICE [facility] 2021-10-16 2021-10-16 Outpatient TREMAINE WORKMAN [facility] [id number] Univers 09:20:00 10:00:34 TREMAINE CHAUDHRY [facility] 2021-10-12 2021-10-12 Orders Fawad, 1.2.840.1 [id number] Methodi 00:00:00 00:00:00 Only Moriah 53410.1.[address] 3.430.2.7 Hospit a .3.446956 l .8 2021-10-11 2021-10-11 Travel 1.2.840.1 1.2.636.462 1092 [id number] Methodi 00:00:00 00:00:[address] 3.430.2.7 0.2.7.3.698 Ho spita .3.456019 084.8 l .8 2021-10-10 2021-10-10 Outpatient TREMAINE WORKMAN [facility] [id number] Univers 08:29:06 23:59:00 TREMAINE CHAUDHRY [facility] 2021-10-10 2021-10-10 [facility] 1.2.844.468 [id number] 3523 [facility] 08:29:06 23:59:00 Encounter Tremaine [facility] 350.1.13.10 ity [facility] [place] [phone] [facility] [address] 2021-10-06 2021-10-06 Travel 1.2.840.1 1.2.681.203 9504 [id number] Methodi 00:00:00 00:00:[address] 3.430.2.7 0.2.7.3.698 spita .3.285065 084.8 l .8 2021-10-06 2021-10-06 Outpatient [facility] [id number] [address] 00:00:00 00:00:00 HARSH [address] 2021-10-06 2021-10-06 Outpatient [facility] [id number] [address] [place] 00:00:00 00:00:00 HARSH [address] 2021-10-02 2021-10-02 Orders Fawad, 1.2.840.1 [id number] Methodi 00:00:00 00:00:00 Only Moriah 68380.1.[address] 3.430.2.7 Hospit a .3.624412 l .8 2021-09-28 2021-09-28 Office Demetrius, 1.2.840.1 [id number] 2818 Methodi 10:30:00 10:56:04 Visit Harsh Ayala 00980.1.1 503 s t 3.430.2.7 Hospit a .3.246162 l .8 2021-09-25 2021-09-[address] [facility], Ang - Db [facility] 1.2.840.1 14 [id number] [facility] 11:15:27 11:30:27 Visit Tremaine Chaudhry [facility] 350.1.13. 10 ity of [place] 4.2.7.2.686 Viraj as TIFFANIE?BLEA [phone] Oh yulisa [address] MEDICAL OFFICE BUILDING 2021-09-25 2021-09-25 Outpatient TREMAINE WORKMAN [facility] [id number] Univers 10:00:00 11:15:11 TREMAINE CHAUDHRY ity of [facility] 2021-09-25 2021-09-25 Office Richa [facility] 1.2.840.114 [id number] Univers 09:47:18 11:15:11 Visit Tremaine [facility] 350.1.13.10 ity of [place] 4.2.7.2.686 Viraj as TIFFANIE?BLEA [phone] [facility] [address] MEDICAL OFFICE [facility] 2021-09-25 2021-09-25 Orders Doctor STEVE 1.2.840.114 [id number] Univers 00:00:00 00:00:00 Only Unassigned, ANKIT 350.1.13.10 ity of [place] [facility] 4.2.7.2.686 Viraj as [phone] [address] 2021-09-18 2021-09-18 [facility] 1.2.840.114 [id number] Univers 00:00:00 00:00:00 Tejal VILLAFUERTE 350.1.13.10 ity [facility] [place] [phone] Oh josemd NAL 044 [facility] 2021-09-18 2021-09-18 Telephone [facility] 1.2.840.114 8 [id number] Univers 00:00:00 00:00:00 Tejal VILLAFUERTE 350.1.13.10 ity of [facility] [place] [phone] Oh josemd NAL 044 [facility] 2021-09-13 2021-09-13 Orders Doctor STEVE 1.2.840.114 [id number] Univers 00:00:00 00:00:00 Only Unassigned, ANKIT 350.1.13.10 ity of [place] [facility] 4.2.7.2.686 Viraj as [phone] [address] 2021-09-08 2021-09-08 Telephone [facility] 1.2.840.114 8 [id number] Univers 00:00:00 00:00:00 Tejal VILLAFUERTE 350.1.13.10 ity of [place].2.[place] [phone] [address] 2021-09-06 2021-09-06 Travel 1.2.840.1 1.2.785.198 6503 [id number] Methodi 00:00:00 00:00:[address] 3.430.2.7 0.2.7.3.698 Ho spita .3.381664 084.8 l .8 2021-09-01 2021-09-01 Refill Vital, [facility] 1.2.840.114 [id number] Univers 00:00:00 00:00:00 Tejal VILLAFUERTE 350.1.13.10 ity of [place] [phone] [address] 2021-09-01 2021-09-01 Telephone [facility] 1.2.840.114 8 [id number] Univers 00:00:00 00:00:00 Tejal VILLAFUERTE 350.1.13.10 ity [facility] 4.[place] [phone] [address] 2021-08-10 2021-08-10 Orders Doctor STEVE 1.2.840.114 [id number] Univers 00:00:00 00:00:00 Only Unassigned, ANKIT 350.1.13.10 ity of [place] [facility] 4.2.7.2.686 Viraj as [phone] [address] 2021-08-04 2021-08-04 (TEL) [facility] [id number] Co mmon 00:00:00 00:00:00 [facility] 2021-07-25 2021-07-25 Telephone Vital, [facility] 1.2.840.114 8 [id number] Univers 00:00:00 00:00:00 Tejal Villafuerte 350.1.13.10 ity of [place] [phone] Oh dical nal 231 [facility] 2021 2021 Telephone Zahraa [facility] 1.2.840.114 8 [id number] Univers 00:00:00 00:00:00 Tejal Villafuerte 350.1.13.10 ity of [place].2.[place] [phone] Oh dical nal 044 [facility] 2021-07-11 2021-07-11 Orders Doctor STEVE 1.2.840.114 [id number] Univers 00:00:00 00:00:00 Only Unassigned, ANKIT 350.1.13.10 ity of [place] [facility] 4.2.7.2.686 Viraj as [phone] [address] 2021-06-29 2021-06-29 Orders Doctor STEVE 1.2.840.114 [id number] Univers 00:00:00 00:00:00 Only Unassigned, ANKIT 350.1.13.10 ity of [place] [facility] 4.2.7.2.686 Viraj as [phone] [address] 2021-05-18 2021-05-18 Outpatient [facility] [id number] Common 00:00:00 00:00:00 [facility] 2020-12-29 2020-12-29 Outpatient Myesha MEJIA [facility] [id number] Univers 00:00:00 00:00:00 BLANCA ashton [facility] 2020-12-21 2020-12-21 Outpatient Myesha MEJIA [facility] [id number] Univers 15:30:00 15:30:00 BLANCA ashton [facility] 2020-12-19 2020-12-19 Outpatient Myesha VITAL [facility] [id number] Univers 09:00:00 09:00:00 TEJAL earl of [facility] 2020-10-26 2020-10-26 Talia Christian [facility] 1.2.840.114 [id number] 19:10:20 19:41:18 [facility] 350.1.13.10 [place] 4.2.7.2.686 Professio [phone] nal 044 Office [facility] 2020-10-26 2020-10-26 Outpatient R JACQUIE [facility] [id number] Univers 19:00:00 19:00:00 INDIRA earl [facility] 2020-09-20 2020-09-20 Telephone Vital, [facility] 1.2.840.114 7 [id number] 00:00:00 00:00:00 Tejal [place] 350.1.13.10 [place] 4.2.7.2.686 Professio [phone] [address] 2020-08-26 2020-08-26 [facility] 1.2.840.114 [id number] 10:00:41 11:52:04 Visit Tejal Villafuerte 350.1.13.10 [place] 4.2.7.2.686 Professio [phone] [address] 2020-08-26 2020-08-26 [id number] Univers 10:00:00 10:00:00 TEJAL ity [facility] 2020-05-25 2020-05-25 Out[facility] 1028 [id number] Univers 09:15:00 09:15:00 TEJAL ity [facility] 2020-05-23 2020-05-23 Outpatient [facility] 1026 [id number] Univers 09:40:00 09:40:00 TEJAL ity [facility] 2020-05-19 2020-05-19 Outpatient R MAE [facility] LIZZ [id number] Univers 06:28:41 06:28:41 LAURA Headley [facility] 2020-05-18 2020-05-18 Outpatient R DAYANARACHAROMIHAINACHO [facility] 003 [id number] Univers 13:30:00 13:30:00 LAURA Headley [facility] 2020-02-09 2020-02-09 Outpatient R DAYANARACHAROMIHAINACHO [facility] [id number] Univers 12:00:00 12:00:00 LAURA Headley [facility] 2019-06-17 2019-06-17 Outpatient Bere Duque 27 [id number] Common 08:45:00 08:45:00 t Specialty/U Sp ilia Specialty rology - [facility] 2019-06-05 2019-06-05 Outpatient Bere Duque 27 [id number] Common 10:44:00 10:44:00 t Specialty/U Sp ilia Specialty rology - [facility] 2019-05-26 2019-05-26 Outpatient Bere Duque 26 [id number] Common 13:30:00 13:30:00 t Specialty/U Sp ilia Specialty rology - [facility] Results Test Description Test Time Test Comments Results Result Comments Source CBC W/AUTO DIFF 2023-05-03 00:00:00 Test Item Value Reference Range Interpretation Comme nts NUCLEATED RBCS (test code 0.0 /100 WBC'S See_Comment [Automated message] The = 59048-7) system which ge nerated this result transmit tom reference range: 0.0 /100 WBC'S. The reference range was not used to interpret th is result as normal/abnormal . ABSOLUTE EOSINOPHILS (test 0.19 K/UL See_Comment [Automated message] The code = 51301-8) system which generated this result transmit tom reference range: 0.00-0.5 0 K/UL. The reference range was not used to interpret th is result as normal/abnormal . ABSOLUTE LYMPHOCYTES (test 1.47 K/UL See_Comment [Automated message] The code = 07257-6) system which generated this result transmit tom reference range: 1.00-4.0 0 K/UL. The reference range was not used to interpret th is result as normal/abnormal . ABSOLUTE MONOCYTES (test 0.57 K/UL See_Comment [A utomated message] The code = 84074-4) system which generated this result transmit tom reference range: 0.20-1.0 0 K/UL. The reference range was not used to interpret th is result as normal/abnormal . ABSOLUTE NEUTROPHILS (test 3.38 K/UL See_Comment [Automated message] The code = 40334-4) system which generated this result transmit tom reference range: 1.50-7.5 0 K/UL. The reference range was not used to interpret th is result as normal/abnormal . BASOPHILS (test code = 0.7 % 79564-6) EOSINOPHILS (test code = 3.4 % 56249-9) HEMATOCRIT (test code = 39.4 % See_Comment [Au tomated message] The 15116-1) system which [employer] nerated this result transmit tom reference range: 34.0-45. 0 %. The reference range was not used to interpret th is result as normal/abnormal . HEMOGLOBIN (test code = 13.7 G/DL See_Comment [Au tomated message] The 8-7) system which [employer] nerated this result transmit tom reference range: 11.5-15. 5 G/DL. The reference range was not used to interpret th is result as normal/abnormal . LYMPHOCYTES (test code = 25.9 % 41321-1) MCH (test code = 86866-9) 34.3 PG See_Comment H [ Automated message] The system which [employer] nerated this result transmit tom reference range: 25.0-33. 0 PG. The reference range was not used to interpret th is result as normal/abnormal . MCHC (test code = 08028-2) 34.8 G/DL See_Comment [Automated message] The system which [employer] nerated this result transmit tom reference range: 31.0-36. 0 G/DL. The reference range was not used to interpret th is result as normal/abnormal . MCV (test code = 78946-9) 98.5 fL See_Comment [ Automated message] The system which [employer] nerated this result transmit tom reference range: 80.0-99. 0 fL. The reference range was not used to interpret th is result as normal/abnormal . MONOCYTES (test code = 10.1 % 99918-4) NEUTROPHILS (test code = 59.5 % 60517-3) PLATELET COUNT (test code 208 K/UL See_Comment [ Automated message] The = 20795-6) system which [employer] nerated this result transmit tom reference range: 130-400 K/UL. The reference range was not used to interpret th is result as normal/abnormal . RBC (test code = 57941-1) 4.00 M/UL See_Comment [ Automated message] The system which [employer] nerated this result transmit tom reference range: 3.80-5.4 0 M/UL. The reference range was not used to interpret th is result as normal/abnormal . RDW (test code = 32372-3) 12.5 % See_Comment [ Automated message] The system which ge nerated this result transmit tom reference range: 11.5-15. 0 %. The reference range was not used to interpret th is result as normal/abnormal . WBC (test code = 02231-6) 5.7 K/UL See_Comment [ Automated message] The system which ge nerated this result transmit tom reference range: 3.5-11.0 K/UL. The reference range was not used to interpret th is result as normal/abnormal . LIPID PANEL WITH REFLEX DIRECT [id number] 00:00:00 Test Item Value Reference Range Interpretation Comments CALC LDL CHOL (test 182 MG/DL See_Comment H [Automa tom message] code = 11854-2) The system [employer] [facility] generated this result transmit tom reference range : <100 MG/DL. The reference range was not used to interpret this result as normal/abnormal . CHOLESTEROL (test code 268 MG/DL See_Comment H [Aut omated message] = 2093-3) The system [facility] generated this result transmit tom reference range : <200 MG/DL. The reference range was not used to interpret this result as normal/abnormal . HDL CHOLESTEROL (test 61 MG/DL See_Comment [Auto mated message] code = 2085-9) The system [employer] generated this result transmit tom reference range : >39 MG/DL. The refe rence range was not u sed to interpret th is result as normal/abnormal . RISK RATIO LDL/HDL 2.98 RATIO See_Comment [Automat ed message] (test code = 17591-0) The sy stem which generated this result transmit tom reference range : <3.22 RATIO. Th e reference range was not used to interpret this result as normal/abnormal . TRIGLYCERIDES (test 119 MG/DL See_Comment [Automa tom message] code = 2571-8) The system [employer] generated this result transmit tom reference range : <150 MG/DL. The reference range was not used to interpret this result as normal/abnormal . COMPREHENSIVE METABOLIC [id number] 00:00:00 Test Item Value Reference Range Interpretation Comments ALBUMIN (test code = 4.1 G/DL See_Comment [Autom ated message] 1751-7) The system [facility] generated this result transmit tom [...] [Automated message] (test code = 1975-2) The sys tem which generated this result transmit tom reference range : <=1.2 MG/DL. Th e reference range was not used to interpret this result as normal/abnormal . BUN (test code = 20 MG/DL See_Comment [Automated message] 3094-0) The system [facility] generated this result transmit tom reference range : 8-23 MG/DL. The reference range was not used to interpret this result as normal/abnormal . CALCIUM (test code = 9.6 MG/DL See_Comment [Autom ated message] 09817-8) The system [facility] [employer] generated this result transmit tom reference range : 8.5-10.5 MG/DL. The reference range was not used to interpret this result as normal/abnormal . CALC A/G RATIO (test 1.4 RATIO See_Comment [Autom ated message] code = 1759-0) The system [facility] generated this result transmit tom reference range : 1.0-2.6 RATIO. The reference range was not used to interpret this result as normal/abnormal . CALC BUN/CREAT (test 23 RATIO See_Comment [Autom ated message] code = 3097-3) The system [facility] generated this result transmit tom reference range : 6-28 RATIO. The reference range was not used to interpret this result as normal/abnormal . CALC GLOBULIN (test 2.9 G/DL See_Comment [Automa tom message] code = 33278-7) The system [facility] generated this result transmit tom reference range : 1.9-3.7 G/DL. T he reference range was not used to interpret this result as normal/abnormal . CARBON DIOXIDE (test 27 MEQ/L See_Comment [Autom ated message] code = 1963-8) The system [employer] generated this result transmit tom reference range : 19-31 MEQ/L. Th e reference range was not used to interpret this result as normal/abnormal . CHLORIDE (test code 107 MEQ/L See_Comment [Automa tom message] = 2074-0) The system [facility] [employer] generated this result transmit tom reference range : 95-107 MEQ/L. T he reference range was not used to interpret this result as normal/abnormal . CREATININE (test 0.88 MG/DL See_Comment [Automated message] code = 2160-0) The system [employer] generated this result transmit tom reference range : 0.60-1.30 MG/DL . The reference range was not used to interpret this result as normal/abnormal . eGFR (2020 CKD-EPI) 68 ML/MIN/1.73 See_Comment [Auto mated message] (test code = The system [facility] [employer] 27440-4) generated this result transmit tom reference range : >60 ML/MIN/1.73. Th e reference range was not used to interpret this result as normal/abnormal . GLUCOSE (test code = 68 MG/DL See_Comment L [Autom ated message] 1558-6) The system [facility] [employer] generated this result transmit tom reference range : 70-99 MG/DL. Th e reference range was not used to interpret this result as normal/abnormal . POTASSIUM (test code 4.0 MEQ/L See_Comment [Autom ated message] = 2823-3) The system [facility] [employer] generated this result transmit tom reference range : 3.5-5.4 MEQ/L. The reference range was not used to interpret this result as normal/abnormal . PROTEIN, TOTAL (test 7.0 G/DL See_Comment [Autom ated message] code = 2885-2) The system [employer] generated this result transmit tom reference range : 6.1-8.3 G/DL. T he reference range was not used to interpret this result as normal/abnormal . AST (test code = 17 U/L See_Comment [Automated message] 1920-8) The system [facility] [employer] generated this result transmit tom reference range : 9-40 U/L. The reference range was not used to interpret this result as normal/abnormal . ALT (test code = 11 U/L See_Comment [Automated message] 1742-6) The system [employer] generated this result transmit tom reference range : 5-40 U/L. The reference range was not used to interpret this result as normal/abnormal . SODIUM (test code = 145 MEQ/L See_Comment [Automa tom message] 9851-2) The system [employer] generated this result transmit tom reference range : 133-146 MEQ/L. The reference range was not used to interpret this result as normal/abnormal . POCT MOLECULAR [id number] 17:08:38 Test Item Value Reference Range Interpretation Comments POCT Molecular Strep (test code = Negative Negative 50918-8) Lab Interpretation (test code = Normal 96957-3) [facility] [id number] 20:58:00 Test Item Value Reference Range Interpretation Comments Case number (test code = [id number]) Surgical pathology See link below for report (test code = PDF Lab Report 2255) Result status (test code This is Final Report = [id number]) for [id number] [facility] pathology [id number] 20:58:00 Test Item Value Reference Range Interpretation Comments Case number (test code = [id number]) Surgical pathology See link below for report (test code = PDF Lab Report 2255) Result status (test code This is Final Report = [id number]) for [id number] [facility] pathology [id number] 20:58:00 Test Item Value Reference Range Interpretation Comments Case number (test code = [id number]) Surgical pathology See link below for report (test code = PDF Lab Report 2255) Result status (test code This is Final Report = [id number]) for [id number] [facility] [id number] 20:21:29 Test Item Value Reference Range Interpretation Comments Ventricular rate (test 77 code = 253) Atrial rate (test code = 77 255) TX interval (test code = 192 266) QRSD [...] Hanks MD (2064) on 04/15/2023 3:20:49 PM [place] [address] [id number] 20:21:29 Test Item Value Reference Range Interpretation Comments Ventricular rate (test 77 code = 253) Atrial rate (test code = 77 255) TX interval (test code = 192 266) QRSD [...] Hanks MD (2064) on 04/15/2023 3:20:49 PM [place] [address] [id number] 20:21:29 Test Item Value Reference Range Interpretation Comments Ventricular rate (test 77 code = 253) Atrial rate (test code = 77 255) TX interval (test code = 192 266) QRSD [...] Hanks MD (2064) on 04/15/2023 3:20:49 PM [facility] [id number] 13:04:00 Test Item Value Reference Range Interpretation Comments Glucose (test code 92 mg/dL 70-99 = 2345-7) BUN (test code = 17 mg/dL 8- 3094-0) Creatinine (test 0.80 mg/dL 0.57-1.00 code = 2160-0) eGFR (test code = 77 mL/min/1.73 >=59 21041-6) BUN/creatinine 10-17 ratio (test code = 3097-3) Sodium (test code = 142 mmol/L 049-374 4806-2) Potassium (test 3.8 mmol/L 3.5-5.2 code = 2823-3) Chloride (test code 105 mmol/L 96-106 = 5-0) CO2 (test code = 22 mmol/L -29 2027-) Calcium (test code 9.4 mg/dL 8.7-10.3 = 92679-7) Protein (test code 6.9 g/dL 6.0-8.5 = 2885-2) Albumin (test code 4.6 g/dL 3.7-4.7 = 1751-7) Globulin, total 2.3 g/dL 1.5-4.5 (test code = 96863-9) Albumin/globulin 2.0 1.2-2.2 ratio (test code = [...] code = Performed at: MARIELA) - [facility] [id number] [place], [place] [id number] Director: Froy Lujan MD, Phone: [phone] [facility] with platelet and [id number] 13:04:00 Test Item Value Reference Range Interpretation Comments WBC (test code = 7.0 See_Comment [Automated 1627-2) message] The system which generated this result [...] 0 % Not Estab. (test code = 57439-3) Immature 0.0 See_Comment [Automated granulocytes, message] The absolute (test code = system which 64866-7) generated this result transmitted reference range : 0.0 - 0.1 x10E3/uL. The reference range was not used to interpret this result as normal/abnormal . MARIELA (test code = MARIELA) Performed at: 01 - [address] [id number] Director: Froy Lujan MD, Phone: [phone] Lab Interpretation Abnormal (test code = 05455-1) [facility]th[facility] time with [id number] 13:04:00 Test Item Value Reference Range Interpretation [...] code = Performed at: MARIELA) - [facility] [address] [id number] Director: Froy Lujan MD, Phone: [phone] [facility] RockPartial thromboplastin time, [id number] 13:04:00 Test Item Value Reference Range Interpretation Comments aPTT (test 26 See_Comment This test [place] n [place] = [place] [address]-3) monitoring unfractionated heparintherapy. aPTT-based ther apeutic ranges for unfractionated heparintherapy have not been establ ished. For general macario delines onHeparin monit oring, refer to the [facility] Directory of Se mounikaices. [Automated mess age] The system [employer] generated this result transmitted ref erence range: 24 - 33 sec. The reference r debbie was not used to interpret this result as normal/abnor mal. MARIELA (test Performed at: 01 - code = MARIELA) [facility] [address] [place], [place] [id number] Director: Froy Lujan MD, Phone: [phone] [facility] [id number] 13:04:00 Test Item Value Reference Range Interpretation Comments Glucose (test code 92 mg/dL 70-99 = 2345-7) BUN (test code = 17 mg/dL 8-27 3094-0) Creatinine (test 0.80 mg/dL 0.57-1.00 code = 2160-0) eGFR (test code = 77 mL/min/1.73 >=59 91582-3) BUN/creatinine 21 -28 ratio (test code = 3097-3) Sodium (test code = 142 mmol/L 519-575 2373-2) Potassium (test 3.8 mmol/L 3.5-5.2 code = 2823-3) Chloride (test code 105 mmol/L 96-106 = 2075-0) CO2 (test code = 22 mmol/L 20-29 2027-9) Calcium (test code 9.4 mg/dL 8.7-10.3 = 91905-4) Protein (test code 6.9 g/dL 6.0-8.5 = 2885-2) Albumin (test code 4.6 g/dL 3.7-4.7 = 1751-7) Globulin, total 2.3 g/dL 1.5-4.5 (test code = 92590-0) Albumin/globulin 2.0 1.2-2.2 ratio (test code = [...] code = Performed at: 01 MARIELA) - [address] [id number] Director: Froy Lujan MD, Phone: [phone] [facility] with platelet and [id number] 13:04:00 Test Item Value Reference Range Interpretation [...] 0 % Not Estab. (test code = 20151-1) Immature 0.0 See_Comment [Automated granulocytes, message] The absolute (test code = system which 44185-1) generated this result transmitted reference range : 0.0 - 0.1 x10E3/uL. The reference range was not used to interpret this result as normal/abnormal . MARIELA (test code = MARIELA) Performed at: 01 - [facility] [address] [id number] Director: Froy Lujan MD, Phone: [phone] Lab Interpretation Abnormal (test code = 51544-7) [facility] with [id number] 13:04:00 Test Item Value Reference Range Interpretation [...] code = Performed at: 01 MARIELA) - [facility] [id number] Director: Froy Lujan MD, Phone: [phone] [facility] thromb[facility] time, doxzpfxkf8854-12-01 13:04:00 Test Item Value Reference Range Interpretation Comments aPTT (test 26 See_Comment This test has n ot been code = [place] [address]-5) monitoring unfractionated heparintherapy. aPTT-based ther apeutic ranges for unfractionated heparintherapy have not been establ ished. For general macario delines onHeparin monit oring, refer to the [facility] Directory of Se rvices. [Automated mess age] The system PetMD generated this result transmitted ref erence range: 24 - 33 sec. The reference r debbie was not used to interpret this result as normal/abnor mal. MARIELA (test Performed at: 01 - code = MARIELA) [facility] [place] [id number] Director: Froy Lujan MD, Phone: [phone] [facility] [id number] 13:04:00 Test Item Value Reference Range Interpretation Comments Glucose (test code 92 mg/dL 70-99 = 2345-7) BUN (test code = 17 mg/dL 06-16 3094-0) Creatinine (test 0.80 mg/dL 0.57-1.00 code = 2160-0) eGFR (test code = 77 mL/min/1.73 >=59 78091-7) BUN/creatinine 10-17 ratio (test code = 3097-3) Sodium (test code = 142 mmol/L 450-161 3095-2) Potassium (test 3.8 mmol/L 3.5-5.2 code = 2823-3) Chloride (test code 105 mmol/L 96-106 = 2075-0) CO2 (test code = 22 mmol/L -2027-9) Calcium (test code 9.4 mg/dL 8.7-10.3 = 99647-8) Protein (test code 6.9 g/dL 6.0-8.5 = 2885-2) Albumin (test code 4.6 g/dL 3.7-4.7 = 1751-7) Globulin, total 2.3 g/dL 1.5-4.5 (test code = 97954-4) Albumin/globulin 2.0 1.2-2.2 ratio (test code = [...] code = Performed at: MARIELA) - [facility] [address] [place], [place] [id number] Director: Froy Lujan MD, Phone: [phone] [place] [address] with platelet and fktndxmaehsb4348-45-18 13:04:00 Test Item Value Reference Range Interpretation Comments WBC (test code = 7.0 See_Comment [Automated 6690-2) message] The system which generated this result transmitted reference range : 3.4 - 10.8 x10E3/uL. The reference range was not used to interpret this result as normal/abnormal . RBC (test code = 4.10 See_Comment [Automated 349-8) message] The system which generated this result [...] 0 % Not Estab. (test code = 72397-8) Immature 0.0 See_Comment [Automated granulocytes, message] The absolute (test code = system which 37481-8) generated this result transmitted reference range : 0.0 - 0.1 x10E3/uL. The reference range was not used to interpret this result as normal/abnormal . MARIELA (test code = MARIELA) Performed at: [facility] [id number] Director: Froy Lujan MD, Phone: [phone] Lab Interpretation Abnormal (test code = 41273-3) [facility] [id number] 13:04:00 Test Item Value Reference Range Interpretation [...] code = Performed at: MARIELA) - [facility] [address] [id number] Director: Froy Lujan MD, Phone: [phone] [facility], [id number] 13:04:00 Test Item Value Reference Range Interpretation Comments aPTT (test 26 See_Comment This test has n ot been code = [place] [address]-7) monitoring unfractionated heparintherapy. aPTT-based ther apeutic ranges for unfractionated heparintherapy have not been establ ished. For general macario delines onHeparin monit oring, refer to the [facility] Directory of Viewex. [Automated mess age] The system PetMD generated this result transmitted ref erence range: 24 - 33 sec. The reference r debbie was not used to interpret this result as normal/abnor mal. MARIELA (test Performed at: - code = MARIELA) [facility] [id number] Director: Froy Lujan MD, Phone: [phone] [facility] metabolic [id number] 13:04:00 Test Item Value Reference Range Interpretation Comments Glucose (test code 92 mg/dL 70-99 = 2345-7) BUN (test code = 17 mg/dL - 3094-0) Creatinine (test 0.80 mg/dL 0.57-1.00 code = 2160-0) eGFR (test code = 77 mL/min/1.73 >=59 30859-8) BUN/creatinine 10-17 ratio (test code = 3097-3) Sodium (test code = 142 mmol/L 714-737 1091-2) Potassium (test 3.8 mmol/L 3.5-5.2 code = 2823-3) Chloride (test code 105 mmol/L 96-106 = 2075-0) CO2 (test code = 22 mmol/L -9) Calcium (test code 9.4 mg/dL 8.7-10.3 = 20098-6) Protein (test code 6.9 g/dL 6.0-8.5 = 2885-2) Albumin (test code 4.6 g/dL 3.7-4.7 = 1751-7) Globulin, total 2.3 g/dL 1.5-4.5 (test code = 85928-1) Albumin/globulin 2.0 1.2-2.2 ratio (test code = [...] code = Performed at: MARIELA) - [facility] [address] [place], [place] [id number] Director: Froy Lujan MD, Phone: [phone] [facility] with platelet and cdbgowxjzsfw0236-80-55 13:04:00 Test Item Value Reference Range Interpretation Comments WBC (test code = 7.0 See_Comment [Automated 7290-2) message] The system which generated this result [...] 4.5 See_Comment [Auto mated (test code = 621-8) message] The system which generated this result [...] 0 % Not Estab. (test code = 28885-9) Immature 0.0 See_Comment [Automated granulocytes, message] The absolute (test code = system which 12352-5) generated this result transmitted reference range : 0.0 - 0.1 x10E3/uL. The reference range was not used to interpret this result as normal/abnormal . MARIELA (test code = MARIELA) Performed at: 01 - [facility] [address] [id number] Director: Froy Lujan MD, Phone: [phone] Lab Interpretation Abnormal (test code = 42685-8) [facility] Rock[facility]th[facility] time with [id number] 13:04:00 Test Item Value Reference Range Interpretation [...] code = Performed at: MARIELA) - [facility] [address] [id number] Director: Froy Lujan MD, Phone: [phone] [facility] thromboplastin time, [id number] 13:04:00 Test Item Value Reference Range Interpretation Comments aPTT (test 26 See_Comment This test has n ot been code = [place] [address]-4) monitoring unfractionated heparintherapy. aPTT-based ther apeutic ranges [...] at: 01 - code = MARIELA) [facility] [address] [place], [place] [id number] Director: Froy Lujan MD, Phone: [phone] [facility] ([facility] performed) [...] code 3.44 See_Comment [Auto mated message] = 3214) The system PetMD generated this result transmitted ref erence range: [...] See_Comment [Autom ated message] 5507) The system PetMD generated this result transmitted ref erence range: [...] ated message] code = 5528) The system PetMD generated this result transmitted ref erence range: [...] See_Comment [Auto mated message] 5423) The system PetMD generated this result transmitted ref erence range: 13.04 - 26.04 ml/(min*mmHg). The reference range was not used to interpr et this result as normal/abnormal . DLCO Predicted (test 19.54 code = 5421) DLCO LLN (test code = 13.04 5422) DLCO % Pre of 51.5 % Predicted (test code = 5424) DL/VA Pre (test code = 2.85 See_Comment [Aut omated message] 5437) The system PetMD generated this result transmitted ref erence range: [...] % Predicted (test code = 5445) [facility] ([facility] performed) [...] [Auto mated message] = 5514) The system PetMD generated this result transmitted ref erence range: [...] code = 5.93 See_Comment [Autom ated message] 5504) The system PetMD generated this result transmitted ref erence range: [...] ated message] code = 5528) The system PetMD generated this result transmitted ref erence range: [...] See_Comment [Auto mated message] 5423) The system PetMD generated this result transmitted ref erence range: 13.04 - 26.04 ml/(min*mmHg). The reference range was not used to interpr et this result as normal/abnormal . DLCO Predicted (test 19.54 code = 5421) DLCO LLN (test code = 13.04 5422) DLCO % Pre of 51.5 % Predicted (test code = 5424) DL/VA Pre (test code = 2.85 See_Comment [Aut omated message] 5437) The system PetMD generated this result transmitted ref erence range: [...] % Predicted (test code = 5445) [facility] ([facility] performed) [...] code 3.44 See_Comment [Auto mated message] = 5506) The system PetMD generated this result transmitted ref erence range: [...] See_Comment [Autom ated message] 5507) The system PetMD generated this result transmitted ref erence range: [...] ated message] code = 5528) The system PetMD generated this result transmitted ref erence range: [...] code = 10.05 See_Comment [Auto mated message] 5464) The system PetMD generated this result transmitted ref erence range: 13.04 - 26.04 ml/(min*mmHg). The reference range was not used to interpr et this result as normal/abnormal . DLCO Predicted (test 19.54 code = 5421) DLCO LLN (test code = 13.04 5422) DLCO % Pre of 51.5 % Predicted (test code = 5424) DL/VA Pre (test code = 2.85 See_Comment [Aut omated message] 5437) The system PetMD generated this result transmitted ref erence range: [...] % Predicted (test code = 5445) [facility] ([facility] performed) [...] [Auto mated message] = 5514) The system PetMD generated this result transmitted ref erence range: [...] See_Comment [Autom ated message] 5507) The system PetMD generated this result transmitted ref erence range: [...] ated message] code = 5528) The system PetMD generated this result transmitted ref erence range: [...] See_Comment [Auto mated message] 5423) The system PetMD generated this result transmitted ref erence range: 13.04 - 26.04 ml/(min*mmHg). The reference range was not used to interpr et this result as normal/abnormal . DLCO Predicted (test 19.54 code = 5421) DLCO LLN (test code = 13.04 5422) DLCO % Pre of 51.5 % Predicted (test code = 5424) DL/VA Pre (test code = 2.85 See_Comment [Aut omated message] 5437) The system PetMD generated this result transmitted ref erence range: [...] % Predicted (test code = 5445) [facility] ([facility] performed) [...] code 3.44 See_Comment [Auto mated message] = 5590) The system PetMD generated this result transmitted ref erence range: [...] See_Comment [Autom ated message] 5507) The system PetMD generated this result transmitted ref erence range: [...] ated message] code = 5528) The system PetMD generated this result transmitted ref erence range: [...] code = 10.05 See_Comment [Auto mated message] 4048) The system PetMD generated this result transmitted ref erence range: 13.04 - 26.04 ml/(min*mmHg). The reference range was not used to interpr et this result as normal/abnormal . DLCO Predicted (test 19.54 code = 5421) DLCO LLN (test code = 13.04 5422) DLCO % Pre of 51.5 % Predicted (test code = 5424) DL/VA Pre (test code = 2.85 See_Comment [Aut omated message] 5437) The system PetMD generated this result transmitted ref erence range: [...] [facility]OVID[facility] [id number] 22:40:55 Test Item Value Reference Interpretation Comments Range Interpretation Negative results do (test code = not preclude COVID-19 4611310) infection and should not be used asthe sole basis for treatment or other patient management decisions. Negativeresults must be combined with clinical observations, patient history, andepidemiological information. COVID-19 Not-Detected Not-Detected DISCLAIMER:This qualitative RT-PCR test was result (test code performed using = 63040-1) the Alinity m SARS-CoV-2 Assa y ([employer] This assay is available for i n vitro diagnosti c use under Food and Drug Administration (FDA) Emergency Use Authorizati on (EUA) and has been verified f or clinical use by the [facility]. Information on the FDA [...] aci d extraction, amplification, and real-time reverse floorwalker polymerase rancho n reaction. COVID-19 See link below for PDF Case Number: qualitative RT-PCR Lab Report [id number] 714 PDF (test code = 7070) [facility] qualitative [id number] 22:40:55 Test Item Value Reference Interpretation Comments Range Interpretation Negative results do (test code = not preclude COVID-19 2039295) infection and should not be used asthe sole basis for treatment or other patient management decisions. Negativeresults must be combined with clinical observations, patient history, andepidemiological information. COVID-19 Not-Detected Not-Detected DISCLAIMER:This qualitative RT-PCR test was result (test code performed using = 28708-5) the Alinity m SARS-CoV-2 Assa y ([employer]). This assay is available for i n vitro diagnosti c use under Food and Drug Administration (FDA) Emergency Use Authorizati on (EUA) and has been verified f or clinical use by the [facility]. Information on the FDA [...] aci d extraction, amplification, and real-time reverse floorwalker polymerase rancho n reaction. COVID-19 See link below for PDF Case Number: qualitative RT-PCR Lab Report [id number] 714 PDF (test code = 7070) [facility] qualitative [id number] 22:40:55 Test Item Value Reference Interpretation Comments Range Interpretation Negative results do (test code = not preclude COVID-19 5684389) infection and should not be used asthe sole basis for treatment or other patient management decisions. Negativeresults must be combined with clinical observations, patient history, andepidemiological information. COVID-19 Not-Detected Not-Detected DISCLAIMER:This qualitative RT-PCR test was result (test code performed using = 45156-6) the Alinity m SARS-CoV-2 Assa y ([employer]). This assay is available for i n vitro diagnosti c use under Food and Drug Administration (FDA) Emergency Use Authorizati on (EUA) and has been verified f or clinical use by the [facility]. Information on the FDA [...] aci d extraction, amplification, and real-time reverse floorwalker polymerase rancho n reaction. COVID-19 See link below for PDF Case Number: qualitative RT-PCR Lab Report [id number] 714 PDF (test code = 7070) [facility] qualitative [id number] 22:40:55 Test Item Value Reference Interpretation Comments Range Interpretation Negative results do (test code = not preclude COVID-19 0364215) infection and should not be used asthe sole basis for treatment or other patient management decisions. Negativeresults must be combined with clinical observations, patient history, andepidemiological information. COVID-19 Not-Detected Not-Detected DISCLAIMER:This qualitative RT-PCR test was result (test code performed using = 85729-1) the Al[employer] m SARS-CoV-2 Assa y ([employer]). This assay is available for i n vitro diagnosti c use under Food and Drug Administration (FDA) Emergency Use Authorizati on (EUA) and has been verified f or clinical use by the [facility]. Information on the FDA [...] aci d extraction, amplification, and real-time reverse floorwalker polymerase rancho n reaction. COVID-19 See link below for PDF Case Number: qualitative RT-PCR Lab Report [id number] 714 PDF (test code = 7070) [facility] qualitative [id number] 22:40:55 Test Item Value Reference Interpretation Comments Range Interpretation Negative results do (test code = not preclude COVID-19 3009677) infection and should not be used asthe sole basis for treatment or other patient management decisions. Negativeresults must be combined with clinical observations, patient history, andepidemiological information. COVID-19 Not-Detected Not-Detected DISCLAIMER:This qualitative RT-PCR test was result (test code performed using = 24682-8) the [employer] m SARS-CoV-2 Assa y ([employer]). This assay is available for i n vitro diagnosti c use under Food and Drug Administration (FDA) Emergency Use Authorizati on (EUA) and has been verified f or clinical use by the [facility]. Information on the FDA [...] aci d extraction, amplification, and real-time reverse floorwalker polymerase rancho n reaction. COVID-19 See link below for PDF Case Number: qualitative RT-PCR Lab Report [id number] 714 PDF (test code = 7070) [facility] TzbymvhnZMBX-NfE-9 (COVID-19) RNA [Presence] in Respiratory specimen by SHARIF with probe [id number] 16:40:55 Test Item Value Reference Range Interpretation Comments SARS-CoV-2 (COVID-19) RNA Not detected [Presence] in Respiratory specimen by SHARIF with probe detection (test code = 58716-5) Whether patient is employed in a Unknown healthcare setting (test code = 04506-5) Whether the patient has symptoms Unknown related to condition of interest (test code = 09111-4) Whether the patient was Unknown hospitalized for condition of interest (test code = 37994-9) Whether the patient was admitted Unknown to intensive care unit (ICU) for condition of interest (test code = 95475-6) Whether patient resides in a Unknown congregate care setting (test code = 85182-2) status (test code = Unknown 10469-7) Date and time of symptom onset Unknown (test code = 25077-1) [facility] WESTLipid Panel With LDL/HDL [id number] 00:00:00 Test Item Value Reference Range Interpretation Comments Cholesterol, Total 229 mg/dL See_Comment H [Automat ed message] (test code = 2093-3) The [facility] tem which generated this result transmitted ref erence range: 100-199 mg/dL. The reference r debbie was not used to interpret this result as normal/abnor mal. Triglycerides (test 200 mg/dL See_Comment H [Automa tom message] code = 2571-8) The system [facility] generated this result transmitted ref erence range: 0-149 mg /dL. The reference r debbie was not used to interpret this result as normal/abnor mal. HDL Cholesterol (test 56 mg/dL See_Comment [Auto mated message] code = 2085-9) The system [facility] generated this result transmitted ref erence range: >39 mg/d L. The reference range was not used to int erpret this result as normal/abnormal . Comp. Metabolic Panel (14) (CMP)2022-05-16 00:00:00 Test Item Value Reference Range Interpretation Comments Glucose (test code = 94 mg/dL See_Comment [Autom ated message] 2345-7) The system [employer] generated this result transmitted ref erence range: 65-99 mg /dL. The reference r debbie was not used to interpret this result as normal/abnor mal. BUN (test code = 18 mg/dL See_Comment [Automated message] 3094-0) The system [employer] generated this result transmitted ref erence range: 8-27 mg/ dL. The reference r debbie was not used to interpret this result as normal/abnor mal. Creatinine (test code 0.81 mg/dL See_Comment [Auto mated message] = 2160-0) The system [employer] generated this result transmitted ref erence range: 0.57-1.0 0 mg/dL. The refe rence range was not u sed to interpret this result as normal/abnor mal. BUN/Creatinine Ratio 22 12-28 (test code = 3097-3) Sodium (test code = 141 mmol/L See_Comment [Automa tom message] 4037-2) The system [employer] generated this result transmitted ref erence range: 134-144 mmol/L. The ref erence range was not u sed to interpret this result as normal/abnor mal. Potassium (test code = 3.8 mmol/L See_Comment [Aut omated message] 9727-3) The system [employer] generated this result transmitted ref erence range: 3.5-5.2 mmol/L. The ref erence range was not u sed to interpret this result as normal/abnor mal. Chloride (test code = 104 mmol/L See_Comment [Auto mated message] 0141-0) The system [employer] generated this result transmitted ref erence range: 96-106 m mol/L. The reference r debbie was not used to interpret this result as normal/abnor mal. Carbon Dioxide, Total 23 mmol/L See_Comment [Auto mated message] (test code = 2027-9) The s tem which generated this result transmitted ref erence range: 20-29 mm ol/L. The reference r debbie was not used to interpret this result as normal/abnor mal. Calcium (test code = 9.5 mg/dL See_Comment [Autom ated message] 22563-9) The system [employer] generated this result transmitted ref erence range: 8.7-10.3 mg/dL. The refe rence range was not u sed to interpret this result as normal/abnor mal. Protein, Total (test 6.6 g/dL See_Comment [Autom ated message] code = 2885-2) The system [facility] generated this result transmitted ref erence range: 6.0-8.5 g/dL. The reference r debbie was not used to interpret this result as normal/abnor mal. Albumin (test code = 4.4 g/dL See_Comment [Autom ated message] 1751-7) The system [facility] generated this result transmitted ref erence range: 3.7-4.7 g/dL. The reference r debbie was not used to interpret this result as normal/abnor mal. Globulin, Total (test 2.2 g/dL See_Comment [Auto mated message] code = 67096-9) The system [facility] generated this result transmitted ref erence range: 1.5-4.5 g/dL. The reference r debbie was not used to interpret this result as normal/abnor mal. A/G Ratio (test code = 2.0 1.2-2.2 1759-0) Bilirubin, Total (test <0.2 mg/dL See_Comment [Aut omated message] code = 1975-2) The system [facility] generated this result transmitted ref erence range: 0.0-1.2 mg/dL. The reference r debbie was not used to interpret this result as normal/abnor mal. Alkaline Phosphatase 76 IU/L See_Comment [Autom ated message] (test code = 6768-6) [facility] which generated this result transmitted ref erence range: 44-121 I U/L. The reference r debbie was not used to interpret this result as normal/abnor mal. AST (SGOT) (test code 16 IU/L See_Comment [Auto mated message] = 1920-8) The system [facility] generated this result transmitted ref erence range: 0-40 IU/ L. The reference range was not used to int erpret this result as normal/abnormal . ALT (SGPT) (test code 10 IU/L See_Comment [Auto mated message] = 1742-6) The system whic h generated this result transmitted ref erence range: 0-32 IU/ L. The reference range was not used to int erpret this result as normal/abnormal . Uric Acid, [id number] 00:00:00 Test Item Value Reference Range Interpretation Comments Uric Acid (test 4.0 mg/dL See_Comment [Automated message] The code = 3084-1) system which generated this result tra nsmitted reference range : 3.1-7.9 mg/dL. The refe rence range was not u sed to interpret this result as normal/abnormal . CBC With Differential/[id number] 00:00:00 Test Item Value Reference Range Interpretation Comments WBC (test code = 6.6 x10E3/uL See_Comment [Automated 7637-2) message] The sy stem which generated this result transmitted reference range : 3.4-10.8 x10E3/ uL. The reference r debbie was not used to interpret this result as normal/abnormal . RBC (test code = 4.01 x10E6/uL See_Comment [Automate d 899-8) message] The sy stem which generated this result transmitted reference range : 3.77-5.28 x10E6 /uL. The reference r debbie was not used to interpret this result as normal/abnormal . Hemoglobin (test code 13.1 g/dL See_Comment [Auto mated = 888-7) message] The sy stem which generated this result transmitted reference range : 11.1-15.9 g/dL. The reference range was not used to interpret this result as normal/abnormal . Hematocrit (test code 39.3 % See_Comment [Auto mated = 7584-3) message] The sy stem which generated this result transmitted reference range : 34.0-46.6 %. Th e reference range was not used to interpret this result as normal/abnormal . MCV (test code = 98 fL See_Comment H [Automated 387-2) message] The sy stem which generated this result transmitted reference range : 79-97 fL. The reference range was not used to interpret this result as normal/abnormal . MCH (test code = 32.7 pg See_Comment [Automated 975-6) message] The sy stem which generated this [...] % Not Estab. % (test code = 45049-7) Immature Grans (Abs) 0.0 x10E3/uL See_Comment [Autom ated (test code = 99186-5) messag e] The system which generated this result transmitted reference range : 0.0-0.1 x10E3/u L. The reference r debbie was not used to interpret this result as normal/abnormal . NRBC (test code = 50410-8) Hematology Comments: (test code = 22708-2) TSH reflex to [id number] 00:00:00 Test Item Value Reference Range Interpretation Comments TSH (test code = 2.180 uIU/mL See_Comment [Automated message] The 15761-1) system which ge nerated this result tra nsmitted reference range : 0.450-4.500 uIU /mL. The reference range was not used to interpr et this result as normal/abnormal .
[2023-09-03 13:31] LABS: Absolute Lymphocytes (CBC) 1.3 K/uL (0.7-4.9); Hematocrit 40.2 % (36.0-45.0); Lymphocytes % 16.8 % (15.3-44.8); MCV 98.7 fL (80-100); MPV 9.1 fL (7.6-11.3); Platelets 207 thou/uL (152-406); RBC Red Blood Cell Count 4.07 M/uL (3.86-4.86)
[2023-09-03 13:43] LABS: Specific Gravity > 1.030 (1.005-1.030); Transitional Epithelial <5 /HPF (None Seen); Urine Bacteria <20 /HPF (<20); Urine Bilirubin NEGATIVE (Negative); Urine Blood Negative (Negative); Urine Clarity Extremely Turbid (Clear); Urine Color Yellow (Yellow); Urine Glucose NEGATIVE (Negative); Urine Mucus 2+ /HPF (None Seen); Urine Protein 1+ (Negative); Urine RBC <5 /HPF (None Seen); Urine Urobilinogen Normal (Normal); Urine WBC Clump Rare /HPF (None Seen)
[2023-09-03 13:44] LABS: Potassium 3.3 mEq/L (3.5-5.1)
--- NOTE | 2023-09-03 14:27 | RAD REPORT ---
EXAM DESCRIPTION: CT - Head Brain Wo Cont - 09/03/2023 1:33 pm CLINICAL HISTORY: TRAUMA COMPARISON: Facial Bones W/ Mpr dated 09/03/2023; Brain W/Wo Cont dated 07/25/2023 TECHNIQUE: Noncontrast head CT images were obtained without IV contrast. Multiplanar reformats were generated and reviewed. All CT scans are performed using dose optimization technique as appropriate and may include automated exposure control or mA/KV adjustment according to patient size. FINDINGS: No intracranial hemorrhage, mass, or edema. Midline structures are unremarkable. Normal ventricular caliber for age. Cadet-white matter differentiation is preserved, without evidence of acute infarct. No abnormal extra- axial fluid collections. Stable nonspecific periventricular and deep white matter hypoattenuation, allowing for differences in technique compared to the prior MRI, most suggestive of chronic small vessel ischemic changes. Mastoid air cells and visualized portions of the paranasal sinuses are clear. No acute bony findings. Forehead soft tissue swelling and small hematoma. IMPRESSION: No evidence of an acute intracranial process. Stable pattern of nonspecific deep white matter predominantly periventricular hypoattenuation, most s uggestive of chronic small vessel ischemic changes. Forehead soft tissue swelling and small hematoma.
--- NOTE | 2023-09-03 14:29 | RAD REPORT ---
EXAM DESCRIPTION: CT - CTFB CLINICAL HISTORY: FACIAL PAIN COMPARISON: No comparisons TECHNIQUE: Axial 2 mm thick images of the face were obtained with sagittal and coronal reconstructio n images. All CT scans are performed using dose optimization technique as appropriate and may include automated exposure control or mA/KV adjustment according to patient size. FINDINGS: No acute facial bone fracture is seen.The mandible is intact. The globes and orbital contents are grossly unremarkable apart from sequelae of bilateral ocular lens replacements.The paranasal sinuses and mastoids are clear. Forehead soft tissue swelling and small hematoma. IMPRESSION: Negative for facial bone fracture. Forehead soft tissue swelling and small hematoma.
--- NOTE | 2023-09-03 14:41 | EDPHYS ---
Physician Documentation [facility] Name: Shewtha Chirinos Age: 78 yrs Sex: Female : 1945 Arrival Date: 09/03/2023 Time: 13:01 Bed 18 Private MD: ED Physician Ernst Aaron HPI: 09/03 14:36 This 78 yrs old Female presents to ER via Wheelchair with complaints of Fall Injury, kb Head Injury Without LOC-Adult. 14:36 Patient is a 78-year-old female with a history of dementia that presents for injuries kb and bruising to the head and face that she woke up with this morning. States she does not remember falling but must have fallen out of bed at some point during the night. Patient lives alone.. Historical: - Allergies: 13:17 Codeine; cm10 - PMHx: 13:17 COPD; Hypertension; Dementia; cm10 - PSHx: 13:17 Cholecystectomy; hysterectomy; cm10 - Immunization history:: Adult Immunizations unknown. - Social history:: Smoking status: unknown. ROS: 14:36 Constitutional: Negative for fever, chills, and weight loss, kb 14:36 Skin: Positive for abrasion(s), of the forehead, 14:37 Skin: Positive for abrasion(s), of the right ear, kb 14:37 All other systems are negative, Exam: 14:40 Constitutional: This is a well developed, well nourished patient who is awake, alert, kb and in no acute distress. Eyes: Pupils equal round and reactive to light, extra-ocular motions intact. Lids and lashes normal. Conjunctiva and sclera are non-icteric and not injected. Cornea within normal limits. Periorbital areas with no swelling, redness, or edema. ENT: Moist Mucous membranes Cardiovascular: Regular rate Respiratory: Respirations even and unlabored. No increased work of breathing. Talking in full sentences Abdomen/GI: Soft, non-tender. No distention MS/ Extremity: Pulses equal, no cyanosis. Neurovascular intact. Full, normal range of motion. Neuro: Awake and alert, GCS 15, oriented to person, place, time, and situation. Moves all extremities. Normal gait. 14:40 Head/face: Noted is abrasion(s), that are moderate, of the forehead and right ear, ecchymosis, that is mild, of the right eye and left eye, hematoma, that is mild, of the forehead, Vital Signs: 13:16 BP 145 / 80; Pulse 91; Resp 18; Temp 97.8; Pulse Ox 98% on R/A; Weight 53.07 kg (M); cm10 Pain 0/10; 14:31 Pulse 80; Resp 16 S; Pulse Ox 96% on R/A; kc6 13:16 Pain Scale: Adult cm10 MDM: 13:05 Patient medically screened. kb 14:37 Differential diagnosis: abrasion, closed head injury, contusion, fracture. Data kb reviewed: vital signs, nurses notes. Historians other than the Patient: Daughter/Son: daughter. Counseling: I had a detailed discussion with the patient and/or guardian regarding the historical points, exam findings, and any diagnostic results supporting the discharge/admit diagnosis, lab results, radiology results, the need for outpatient follow up, a family practitioner, to return to the emergency department if symptoms worsen or persist or if there are any questions or concerns that arise at home. 09/03 13:14 Order name: CBC with Diff; Complete Time: 13:36 kb 09/03 13:14 Order name: Basic Metabolic Panel; Complete Time: 13:48 kb 09/03 13:14 Order name: Urinalysis w/ reflexes; Complete Time: 13:48 kb 09/03 13:48 Order name: Urine Culture EDMS 09/03 13:13 Order name: CT Head Brain wo Cont; Complete Time: 14:32 kb 09/03 13:13 Order name: CT Facial Bones W/O Con; Complete Time: 14:32 kb 09/03 13:14 Order name: IV Start; Complete Time: 13:24 kb 09/03 14:35 Order name: Wound Care; Complete Time: 15:11 kb Administered Medications: No medications were administered Disposition Summary: 09/03/23 14:41 Discharge Ordered Notes: Location: Home kb Condition: Stable kb Diagnosis - Unspecified injury of head, initial encounter kb - UTI/ Urinary tract infection, site not specified kb Followup: kb - With: Emergency Department - When: As needed - Reason: Worsening of condition Followup: kb - With: Private Physician - When: 2 - 3 days - Reason: Recheck today's complaints, Continuance of care, Re-evaluation by your physician Discharge Instructions: - Discharge Summary Sheet kb - Urinary Tract Infection, Adult, [id number] kb - Head Injury, Adult, [id number] kb Forms: - Medication Reconciliation Form kb - Thank You Letter kb - Antibiotic Education kb - Prescription Opioid Use kb - Patient Portal Instructions kb - Leadership Thank You Letter kb - Work release form kc6 Prescriptions: - Augmentin 875-125 mg Oral tablet - take 1 tablet ORAL route every 12 hours for 5 days; 10 tablet; Refills: 0, kb Product Selection Permitted Addendum: 09/04/2023 15:35 I was immediately available for consultation during this patient's visit. I did not e c2 personally see the patient or guide the patient's care. . Signatures: Dispatcher [employer] Janessa Hernandez, RAKAN-Mary Ann BLEDSOE-Tata Hardwick, RN RN cm10 Ernst Aaron MD MD ec2
--- NOTE | 2023-09-03 14:41 | ER ---
Nurse's Notes [facility] Name: Shwetha Chirinos Age: 78 yrs Sex: Female : 1945 Arrival Date: 09/03/2023 Time: 13:01 Bed 18 Private MD: Diagnosis: Unspecified injury of head, initial encounter;UTI/ Urinary tract infection, site not specified Presentation: 09/03 13:16 Chief complaint: Patient states: She woke up this morning and had lac to forehead, cm10 behind right ear and bruising to left eye. Pt states that she does not recall falling. Coronavirus screen: Client denies travel out of the [place] in the last 14 days. Ebola Screen: Patient denies travel to an Ebola-affected area in the 21 days before illness onset. No symptoms or risks identified at this time. Initial Sepsis Screen: Does the patient meet any 2 criteria? No. Patient's initial sepsis screen is negative. Does the patient have a suspected source of infection? No. Patient's initial sepsis screen is negative. Risk Assessment: Do you want to hurt yourself or someone else? Patient reports no desire to harm self or others. Onset of symptoms was September 03, 2023. 13:16 Method Of Arrival: Wheelchair cm10 13:16 Acuity: TAYLOR 3 cm10 Historical: - Allergies: 13:17 Codeine; cm10 - PMHx: 13:17 COPD; Hypertension; Dementia; cm10 - PSHx: 13:17 Cholecystectomy; hysterectomy; cm10 - Immunization history:: Adult Immunizations unknown. - Social history:: Smoking status: unknown. Screenin:24 [facility] ED Fall Risk Assessment (Adult) History of falling in the last 3 months, kc6 including since admission Yes- physiologic fall (2 pts) Confusion or Disorientation No (0 pts) Intoxicated or Sedated No (0 pts) Impaired Gait No (0 pts) Mobility Assist Device Used No (0 pt) Altered Elimination No (0 pt) Score/Fall Risk Level 0 - 2 = Low Risk. Abuse screen: Denies threats or abuse. Denies injuries from another. Nutritional screening: No deficits noted. Tuberculosis screening: No symptoms or risk factors identified. Assessment: 13:24 General: Appears in no apparent distress. comfortable, Behavior is calm, cooperative, kc6 appropriate for age. Pain: Complains of pain in face. Neuro: Level of Consciousness is awake, alert, obeys commands, Oriented to person, place, time, situation, Appropriate for age Reports headache Denies dizziness. Cardiovascular: Capillary refill < 3 seconds. Respiratory: Airway is patent Trachea midline Respiratory effort is even, unlabored, Respiratory pattern is regular, symmetrical. GI: No signs and/or symptoms were reported involving the gastrointestinal system. : No signs and/or symptoms were reported regarding the genitourinary system. EENT: Ear canal w/ bleeding noted from right ear. Derm: Skin is healthy with good turgor, Skin is normal, Bruising that is dark purple, on forehead, right eye and left eye. Musculoskeletal: No signs and/or symptoms reported regarding the musculoskeletal system. Circulation, motion, and sensation intact. Capillary refill < 3 seconds, Range of motion: intact in all extremities. 14:24 Reassessment: Patient appears in no apparent distress at this time. No changes from kc6 previously documented assessment. Patient and/or family updated on plan of care and expected duration. Pain level reassessed. Patient is alert, oriented x 3, equal unlabored respirations, skin warm/dry/pink. 15:21 Reassessment: Patient appears in no apparent distress at this time. No changes from kc6 previously documented assessment. Patient and/or family updated on plan of care and expected duration. Pain level reassessed. Patient is alert, oriented x 3, equal unlabored respirations, skin warm/dry/pink. Vital Signs: 13:16 BP 145 / 80; Pulse 91; Resp 18; Temp 97.8; Pulse Ox 98% on R/A; Weight 53.07 kg (M); cm10 Pain 0/10; 14:31 Pulse 80; Resp 16 S; Pulse Ox 96% on R/A; kc6 13:16 Pain Scale: Adult cm10 ED Course: 13:04 Patient arrived in ED. im 13:05 Jan[facility]ren[facility]C [facility] kb 13:05 Ernst Araon MD is Attending Physician. kb 13:14 Radha Berry RN is Primary Nurse. kc6 13:17 Triage completed. cm10 13:17 Arm band placed on Patient placed in an exam room, on a stretcher. cm10 13:24 Patient has correct armband on for positive identification. Bed in low position. Call kc6 light in reach. Side rails up X 1. Adult w/ patient. Client placed on continuous cardiac and pulse oximetry monitoring. NIBP monitoring applied. 13:24 Basic Metabolic Panel Sent. kc6 13:24 CBC with Diff Sent. kc6 13:24 Inserted saline lock: 20 gauge in right antecubital area, using aseptic technique. kc6 Blood collected. Patient maintains SpO2 saturation greater than 95% on room air. 13:35 CT Head Brain wo Cont In Process Unspecified. EDMS 13:35 CT Facial Bones W/O Con In Process Unspecified. EDMS 15:21 No provider procedures requiring assistance completed. IV discontinued, intact, kc6 bleeding controlled, No redness/swelling at site. Pressure dressing applied. Administered Medications: No medications were administered Medication: 15:22 VIS not applicable for this client. kc6 Outcome: 14:41 Discharge ordered by MD. kb 15:21 Discharged to home via wheelchair, with family, kc6 15:21 Condition: good 15:21 Discharge instructions given to patient, family, Instructed on discharge instructions, follow up and referral plans. medication usage, wound care, Demonstrated understanding of instructions, follow-up care, medications, wound care, Prescriptions given X 1, 15:22 Patient left the ED. kc6 Addendum: 09/06/2023 07:17 Addendum: Culture Results: Positive urine culture. No further action required. Bacteria e b sensitive to prescribed antibiotic. Signatures: Dispatcher [employer] EDMS Janessa Arenas, A[employer]AN [employer] SCIENCE TECHNICIAN-Tejal Valladares Kaitlyn, RN RN kc6 Yue Jo Clarissa, RN RN cm10
[2023-09-03 15:29] VITALS: BP 145/80; TEMP 97.8
[2023-09-03 15:31] VITALS: O2SAT 96
== END 2023-09-03 15:22 | disposition home or self-care (01) ==
LOC: ER 13:01
DX: S00.81XA Abrasion of other part of head, initial encounter (principal); N39.0 Urinary tract infection, site not specified; I10 Essential (primary) hypertension; F03.90 Unspecified dementia, unspecified severity, without behavioral disturbance, psychotic disturbance, mood disturbance, and anxiety; Z88.5 Allergy status to narcotic agent
CPT/HCPCS: 36415; 70450; 70486; 76377; 80048; 81001; 85025; 87077; 87086; 87088; 87186; 99284

== ENCOUNTER 2023-12-07 09:26 | Observation (INO) | payer OTHER, MEDICARE ==
[2023-12-07] MEDS ORDERED: ONDANSETRON 4 MG/2 ML VIAL ONE (10:01)
[2023-12-07] MEDS ORDERED: NA CHLORIDE 0.9% 1,000 ML ONE ×2 (10:01→19:48)
[2023-12-07 10:05] LABS: Absolute Lymphocytes (CBC) 1.3 K/uL (0.7-4.9); Hematocrit 40.4 % (36.0-45.0); Lymphocytes % 18.4 % (15.3-44.8); MCV 99.5 fL (80-100); Platelets 222 thou/uL (152-406); RBC Red Blood Cell Count 4.06 M/uL (3.86-4.86)
[2023-12-07 10:32] LABS: Albumin 3.3 g/dL (3.4-5.0); Bilirubin Total 0.5 mg/dL (0.2-1.0); Potassium 3.6 mEq/L (3.5-5.1); Protein, Total 7.1 g/dL (6.4-8.2)
[2023-12-07 11:10] LABS: Blood Morphology Comment NOT SEEN (NOT SEEN); Platelet Estimate ADEQ; White Blood Cell Scan OK (OK)
--- NOTE | 2023-12-07 11:10 | RAD REPORT ---
EXAM DESCRIPTION: CTAbdomen Pelvis W Contrast - 12/07/2023 10:59 am CLINICAL HISTORY: ABD PAIN COMPARISON: Abdomen Pelvis W Contrast dated 08/28/2023; CT ABD PELVIS W CONTRAST dated 08/05/2012 TECHNIQUE: CT of the abdomen and pelvis was performed. All CT scans are performed using dose optimization technique as appropriate and may include automated exposure control or mA/KV adjustment according to patient size. FINDINGS: Lower chest: Dependent atelectasis. Aortic root calcifications. Mild coronary artery calci fications. Liver: Intrahepatic biliary duct dilatation likely related to the postcholecystectomy state. Biliary: Cholecystectomy. Extrahepatic biliary duct dilatation likely related to the postcholecystect delmer state. Stomach: No significant focal abnormality. Duodenum: No significant focal abnormality. Pancreas: No significant abnormality. Spleen: No significant abnormality. Adrenal: No suspicious lesions. Kidney/ureter: No hydronephrosis. No renal calculi. Retroperitoneum: No retroperitoneal adenopathy. Vascular: No aneurysm. Atherosclerosis. Bowel: Mild wall thickening and hyperenhancement at the sigmoid and rectum.. No bowel obstruction. Peritoneum: No ascites or free air. Bladder: Grossly unremarkable. Reproductive: No adnexal masses. Hysterectomy. Bones: No acute fracture. Kyphoplasty changes L1 and L2. Multilevel degenerative changes are present in the spine. Other: n/a IMPRESSION: Mild colitis suspected at the sigmoid and rectum. . No other acute findings identified. Incidental findings as noted above .
--- NOTE | 2023-12-07 11:20 | EDPHYS ---
Physician Documentation [facility] Name: Shwetha Chirinos Age: 78 yrs Sex: Female : 1945 Arrival Date: 12/07/2023 Time: 09:26 Bed 5 Private MD: ED Physician Andrew Campbell HPI: 12/07 09:50 This 78 yrs old Female presents to ER via Ambulatory with complaints of Nausea, kb Diarrhea. 09:50 Pt is a 78 year old female who presents for diarrhea x 1 week, n/v that began yesterday kb and headache. States she has felt too weak to get out of bed since last night. Assisted living recommended daughter bring her in for dehydration. Pt reports she took B12 for the first time yesterday morning and believes that is what caused the vomiting. Denies abd pain or fever. Historical: - Allergies: 09:44 Codeine; nj1 - PMHx: 09:44 COPD; Dementia; Hypertension; Chron's disease (Unknown); nj1 - PSHx: 09:44 Cholecystectomy; hysterectomy; nj1 - Immunization history:: Client reports receiving the 2nd dose of the Covid vaccine. - Social history:: Smoking status: Patient/guardian denies using tobacco, the patient reports quitting approximately 26 years ago. ROS: 09:49 Constitutional: Negative for fever, chills, and weight loss, kb 09:49 Abdomen/GI: Positive for nausea, vomiting, and diarrhea, Negative for abdominal pain, 09:49 Neuro: Positive for headache, 09:49 All other systems are negative, Exam: 09:49 Constitutional: This is a well developed, well nourished patient who is awake, alert, kb and in no acute distress. Head/Face: Normocephalic, atraumatic. ENT: Moist Mucous membranes Cardiovascular: Regular rate Respiratory: Respirations even and unlabored. No increased work of breathing. Talking in full sentences Abdomen/GI: Soft, non-tender. No distention Skin: Warm, dry with normal turgor. Normal color. MS/ Extremity: Pulses equal, no cyanosis. Neurovascular intact. Full, normal range of motion. Neuro: Awake and alert, GCS 15, oriented to person, place, time, and situation. Moves all extremities. Normal gait. Vital Signs: 09:35 BP 163 / 86; Pulse 87; Resp 18; Temp 98.1(O); Pulse Ox 91% on R/A; Weight 49.44 kg (R); nj1 Height 5 ft. 4 in. (R); 13:30 BP 138 / 69; Pulse 78; Resp 16; Pulse Ox 91% ; iw 09:35 Body Mass Index 18.71 (49.44 kg, 162.56 cm) nj1 MDM: 09:31 Patient medically screened. kb 09:49 Data reviewed: vital signs, nurses notes. kb 11:17 Differential diagnosis: Nonspecific abd pain, gastritis, diverticulitis, colitis. kb Consideration of Admission/Observation Escalation of care including admission/observation considered. admission considered, but pt is nontoxic in appearance, labs wnl, afebrile. Discussed outpatient treatment with daughter. All in agreement. Will return for worsening symptoms. Management of patient was discussed with the following: Dr Campbell. Historians other than the Patient: Daughter/Son: daughter. 13:22 Management of patient was discussed with the following: Hospitalist: Hospitalist team, rosanna Pt accepted for admission under Dr Fam. Counseling: I had a detailed discussion with the patient and/or guardian regarding the historical points, exam findings, and any diagnostic results supporting the discharge/admit diagnosis, lab results, radiology results, the need for further work-up and treatment in the hospital. ED course: Pt unable to tolerate po after treatment. Will admit. 12/07 09:40 Order name: CBC with Diff; Complete Time: 11:11 kb 12/07 09:40 Order name: CMP; Complete Time: 10:46 kb 12/07 09:40 Order name: Lipase; Complete Time: 10:46 kb 12/07 09:40 Order name: Urinalysis w/ reflexes; Complete Time: 11:57 kb 12/07 09:40 Order name: C.difficile 12/07 09:41 Order name: Stool Culture 12/07 11:11 Order name: CBC Smear Scan; Complete Time: 11:11 EDMS 12/07 13:56 Order name: CBC with Automated Diff EDMS 12/07 13:56 Order name: CBC with Automated Diff EDMS 12/07 13:56 Order name: CBC with Automated Diff EDMS 12/07 13:56 Order name: CBC with Automated Diff EDMS 12/07 13:56 Order name: Comprehensive Metabolic Panel EDMS 12/07 13:56 Order name: Comprehensive Metabolic Panel [facility] 12/07 13:56 Order name: Comprehensive Metabolic Panel [facility] 12/07 13:56 Order name: Comprehensive Metabolic Panel [facility] 12/07 13:56 Order name: Lipid Profile [facility] 12/07 13:56 Order name: Lipid Profile [facility] 12/07 13:56 Order name: Magnesium [facility] 12/07 13:56 Order name: Magnesium [facility] 12/07 13:56 Order name: Urinalysis w/ reflexes [facility] 12/07 09:40 Order name: CT Abd/Pelvis - IV Contrast Only; Complete Time: 11:11 kb 12/07 13:57 Order name: Patient Safety Orders [facility] 12/07 09:40 Order name: IV Saline Lock; Complete Time: 09:53 kb 12/07 09:40 Order name: Labs collected and sent; Complete Time: 09:53 kb Administered Medications: 10:13 Drug: NS 0.9% IV 1000 ml IV at 1 bolus Per protocol; 1000 mL bolus Route: IV; Rate: 1 iw bolus; Site: right antecubital; 11:50 Follow up: IV Status: Completed infusion iw 10:13 Drug: Ondansetron IVP 4 mg IVP once; over 2 minutes Route: IVP; Site: right antecubital;iw 14:45 Follow up: Response: No adverse reaction tl4 11:50 Drug: Acetaminophen PO 650 mg PO once Route: PO; iw 14:45 Follow up: Response: No adverse reaction tl4 11:50 Drug: metroNIDAZOLE PO 500 mg PO once Route: PO; iw 13:37 Follow up: Response: Nausea is increased iw 11:50 Drug: Ciprofloxacin PO 250 mg PO once Route: PO; iw 13:36 Follow up: Response: Other; pt vomited after administered iw 14:28 Drug: Promethazine IVP 6.25 mg IVP once Route: IVP; Site: left forearm; tl4 14:46 Follow up: Response: Nausea is decreased tl4 Disposition Summary: 12/07/23 13:26 Hospitalization Ordered Notes: Hospitalization Status: Inpatient Admission kb Provider: Rubi Fam Condition: Stable(12/07/23 13:26) kb Problem: new kb Symptoms: are unchanged kb Bed/Room Type: Standard kb Location: Telemetry/MedSurg (Inpatient)(12/07/23 19:47) cg Room Assignment: 231(12/07/23 19:47) cg Diagnosis - Colitis kb - Weakness kb Forms: - Medication Reconciliation Form kb - SBAR form kb - Leadership Thank You Letter kb Signatures: Dispatcher [employer] Janessa Hernandez, Nanci Iniguez, RN RN Erendira Johnson RN RN cg Jing Degroot RN RN Britni Bustos RN RN nj1 Judson Hendricks RN RN tl4 Corrections: (The following items were deleted from the chart) 13:25 11:17 Counseling: I had a detailed discussion with the patient and/or guardian kb regarding the historical points, exam findings, and any diagnostic results supporting the discharge/admit diagnosis, lab results, radiology results, the need for outpatient follow up, a family practitioner, to return to the emergency department if symptoms worsen or persist or if there are any questions or concerns that arise at home, kb 13:25 11:19 Home kb kb 13:25 11:19 Stable kb kb 13:25 11:19 Colitis kb kb 15:51 13:26 Telemetry/MedSurg (Inpatient) kb hb 15:51 13:26 kb hb 19:47 15:51 [facility] ER HOLD hb cg 19:47 15:51 ERHOLD- hb cg
--- NOTE | 2023-12-07 11:20 | ER ---
Nurse's Notes [facility] Name: Shwetha Chirinos Age: 78 yrs Sex: Female : 1945 Arrival Date: 12/07/2023 Time: 09:26 Bed 5 Private MD: Diagnosis: Colitis;Weakness Presentation: 12/07 09:35 Chief complaint: Patient's son or daughter states: Diarrhea since last Saturday, nj1 vomited once yesterday. Has a headache. Not really eating/drinking. Saw PCP . Concerned she may be dehydrated, weakness/malaise. 09:35 Coronavirus screen: Vaccine status: Patient reports receiving the 2nd dose of the covid nj1 vaccine. Ebola Screen: Patient denies travel to an Ebola-affected area in the 21 days before illness onset. Initial Sepsis Screen: Does the patient meet any 2 criteria? No. Patient's initial sepsis screen is negative. Does the patient have a suspected source of infection? No. Patient's initial sepsis screen is negative. Risk Assessment: Do you want to hurt yourself or someone else? Patient reports no desire to harm self or others. Onset of symptoms was November 30, 2023. 09:35 Method Of Arrival: Ambulatory [facility] 09:35 Acuity: TAYLOR 3 nj1 Historical: - Allergies: 09:44 Codeine; nj1 - PMHx: 09:44 COPD; Dementia; Hypertension; Chron's disease (Unknown); nj1 - PSHx: 09:44 Cholecystectomy; hysterectomy; nj1 - Immunization history:: Client reports receiving the 2nd dose of the Covid vaccine. - Social history:: Smoking status: Patient/guardian denies using tobacco, the patient reports quitting approximately 26 years ago. Screenin:12 [facility] ED Fall Risk Assessment (Adult) Score/Fall Risk Level. Abuse screen: Denies iw threats or abuse. Denies injuries from another. Nutritional screening: No deficits noted. Tuberculosis screening: No symptoms or risk factors identified. Assessment: 10:11 General: Appears in no apparent distress. Behavior is calm, cooperative. General: iw Reports fatigue for. Pain: Complains of pain in head. Neuro: Level of Consciousness is awake, alert, obeys commands, Oriented to person, place, time, situation, Moves all extremities. Full function Reports headache. Cardiovascular: Patient's skin is warm and dry. Respiratory: Respiratory effort is even, unlabored, Respiratory pattern is regular, symmetrical. GI: Abdomen is flat, non-distended, Reports diarrhea, nausea. Derm: Skin is fragile, is thin, Skin is dry, Skin is pale. Musculoskeletal: Range of motion: intact in all extremities. 12:20 Reassessment: pt vomited after social media community manager , Janessa FILM LIBRARIAN notified, new orders given , will iw hold for PO challenge. 13:20 Reassessment: pt states she still feels very nauseous. iw 13:31 Reassessment: pt will be admitted, Ema FILM LIBRARIAN at bedside for admission orders. iw 19:00 Reassessment: Patient appears in no apparent distress at this time. No changes from km8 previously documented assessment. Patient and/or family updated on plan of care and expected duration. Pain level reassessed. Patient is alert, oriented x 3, equal unlabored respirations, skin warm/dry/pink. 20:00 Reassessment: Patient appears in no apparent distress at this time. No changes from km8 previously documented assessment. Patient and/or family updated on plan of care and expected duration. Pain level reassessed. Vital Signs: 09:35 BP 163 / 86; Pulse 87; Resp 18; Temp 98.1(O); Pulse Ox 91% on R/A; Weight 49.44 kg (R); nj1 Height 5 ft. 4 in. (R); 13:30 BP 138 / 69; Pulse 78; Resp 16; Pulse Ox 91% ; iw 09:35 Body Mass Index 18.71 (49.44 kg, 162.56 cm) nj1 ED Course: 09:30 Patient arrived in ED. ts1 09:31 [facility]ren[facility]C [facility]. kb 09:31 Andrew aCmpbell MD is Attending Physician. kb 09:44 Triage completed. nj1 09:45 Arm band placed on right wrist. nj1 09:52 Inserted saline lock: 20 gauge in right antecubital area, using aseptic technique. mc5 Blood collected. 09:55 Nanci Escobedo, RN is Primary Nurse. iw 10:13 Patient has correct armband on for positive identification. Provided Education on: iw diagnostics . 11:01 CT Abd/Pelvis - IV Contrast Only In Process Unspecified. EDMS 13:26 Rubi Fam MD is Hospitalizing Provider. kb 20:37 No provider procedures requiring assistance completed. Patient admitted, IV remains in km8 place. Administered Medications: 10:13 Drug: NS 0.9% IV 1000 ml IV at 1 bolus Per protocol; 1000 mL bolus Route: IV; Rate: 1 iw bolus; Site: right antecubital; 11:50 Follow up: IV Status: Completed infusion iw 10:13 Drug: Ondansetron IVP 4 mg IVP once; over 2 minutes Route: IVP; Site: right antecubital;iw 14:45 Follow up: Response: No adverse reaction tl4 11:50 Drug: Acetaminophen PO 650 mg PO once Route: PO; iw 14:45 Follow up: Response: No adverse reaction tl4 11:50 Drug: metroNIDAZOLE PO 500 mg PO once Route: PO; iw 13:37 Follow up: Response: Nausea is increased iw 11:50 Drug: Ciprofloxacin PO 250 mg PO once Route: PO; iw 13:36 Follow up: Response: Other; pt vomited after administered iw 14:28 Drug: Promethazine IVP 6.25 mg IVP once Route: IVP; Site: left forearm; tl4 14:46 Follow up: Response: Nausea is decreased tl4 Medication: 10:12 VIS not applicable for this client. iw Outcome: 11:19 Discharge ordered by MD. kb 13:26 Decision to Hospitalize by Provider. kb 20:38 Condition: stable km8 20:38 Instructed on the need for admit, Demonstrated understanding of instructions, 21:03 Patient left the ED. jb4 Signatures: Dispatcher [employer] Janessa Hernandez, SENIOR LOGISTICS MANAGER-C SENIOR LOGISTICS MANAGER-Ckb Nanci Escobedo, TORRES MACDONALD iw Rj Epstein RN RN jb4 Britni Bustos RN RN nj1 Roseline Hameed PAS PAS ts1 Leann Mcdonald 5 Vikki Kelly RN RN km8 Judson Hendricks RN RN tl4
[2023-12-07] MEDS ORDERED: metroNIDAZOLE 500 MG TABLET ONE (11:51)
[2023-12-07] MEDS ORDERED: ACETAMINOPHEN 325 MG TABLET ONE (11:51)
[2023-12-07] MEDS ORDERED: CIPROFLOXACIN HCL 500 MG TAB ONE (11:51)
[2023-12-07 11:56] LABS: Specific Gravity > 1.030 (1.005-1.030); Urine Bacteria None Seen /HPF (<20); Urine Bilirubin NEGATIVE (Negative); Urine Blood Negative (Negative); Urine Clarity Clear (Clear); Urine Color Light-Yellow (Yellow); Urine Glucose NEGATIVE (Negative); Urine Protein NEGATIVE (Negative); Urine RBC <5 /HPF (None Seen); Urine Urobilinogen Normal (Normal)
[2023-12-07] MEDS ORDERED: ONDANSETRON 4 MG (ODT) TAB ONE (12:16)
[2023-12-07] MEDS: CYANOCOBALAMIN 1000MCG/ML INJ SQ ONE (13:48)
[2023-12-07] MEDS ORDERED: PROMETHAZINE INJ 25 MG/ML AMP IV PRN (13:48)
--- NOTE | 2023-12-07 14:06 | P.HP ---
Certification for Inpatient Patient admitted to: Inpatient With expected LOS: >2 Midnights Patient will require the following post-hospital care: None Practitioner: I am a practitioner with admitting privileges, knowledge of patient current condition, hospital course, and medical plan of care. Services: Services provided to patient in accordance with Admission requirements found in Title 42 Section 412.3 of the Code of Federal Regulations <Ema Henley - Last Filed: 12/07/23 14:16> Patient History Date of Service: 12/07/23 Reason for admission: colitis, intractable N/V History of Present Illness: Pt is a 78 year old female who presents for diarrhea x 1 week. Nausea and vomiting with headache began yesterday. States she has felt too weak to get out of bed since last night. [facility] recommended daughter, (Isatu) bring her in for dehydration. Pt reports she took B12 for the first time yesterday morning and believes that is what caused the vomiting. Denies abdominal pain, melena, hematochezia, or fever. Laboratory evaluation in the emergency department was normal and patient was to be discharged home with p.o. antibiotics; however, after the IV was removed the patient began vomiting again. We will keep her in the hospital with nausea medication, clear liquid diet as tolerated to await stool culture and C. difficile results. Home medications list reviewed: Yes - Past Medical/Surgical History Has patient received pneumonia vaccine in the past: No Diabetic: No -: COPD -: GERD -: Hyperlipidemia -: Crohn's disease -: microvascular dementia -: Cholecystectomy -: Hysterectomy -: tonsillectomy -: Back injections Psychosocial/ Personal History: Patient is retired and lives alone with puppy, pt recently moved to [facility] post dx of microvascular dementia - Family History Family History: Reviewed- Non-Contributory - Social History Smoking Status: Former smoker Alcohol use: No CD- Drugs: No Caffeine use: Yes Place of Residence: Custodial ([facility]) <Ema Henley - Last Filed: 12/07/23 14:16> Date of Service: 12/07/23 <Rubi Fam - Last Filed: 12/07/23 14:23> Allergies codeine Allergy (Verified 02/22/23 08:00) "Crazy feeling" Home Medications: Omeprazole [Prilosec] 40 mg PO DAILY 07/31/19 Acetaminophen [Tylenol Extra Strength] 500 mg PO PRN PRN 02/21/23 Rivastigmine Tartrate [Rivastigmine] 3 mg PO DAILY 02/21/23 Review of Systems 10-point ROS is otherwise unremarkable General: Weakness, Malaise Eyes: Unremarkable ENT: Unremarkable Respiratory: Unremarkable Cardiovascular: Unremarkable Gastrointestinal: Nausea, Vomiting, Diarrhea, As per HPI Genitourinary: Unremarkable Musculoskeletal: Unremarkable Integumentary: Unremarkable Neurological: Weakness <Ema Henley - Last Filed: 12/07/23 14:16> Physical Examination - Physical Exam General: Alert, Oriented x3, Other (uncomfortable) HEENT: Atraumatic, Normocephalic Neck: Supple, 2+ carotid pulse no bruit Respiratory: Clear to auscultation bilaterally, Normal air movement Cardiovascular: No edema, Normal pulses, Normal S1 S2 Capillary refill: <2 Seconds Gastrointestinal: Hypoactive, No tenderness Musculoskeletal: No clubbing Integumentary: No rashes, No breakdown Neurological: Normal speech (g), Other (gait not tested) Lymphatics: No axilla or inguinal lymphadenopathy External genitalia: Deferred Rectal: Deferred - Studies Laboratory Data (last 24 hrs) 12/07/23 12/07/23 09:58 09:50 WBC 7.10 Hgb 13.5 Hct 40.4 Plt Count 222 Sodium 137 Potassium 3.6 BUN 18 Creatinine 0.85 Glucose 97 Total Bilirubin 0.5 AST 21 ALT 18 Alkaline Phosphatase 77 Lipase 26 <Ema Henley - Last Filed: 12/07/23 14:16> - Studies Laboratory Data (last 24 hrs) 12/07/23 12/07/23 09:58 09:50 WBC 7.10 Hgb 13.5 Hct 40.4 Plt Count 222 Sodium 137 Potassium 3.6 BUN 18 Creatinine 0.85 Glucose 97 Total Bilirubin 0.5 AST 21 ALT 18 Alkaline Phosphatase 77 Lipase 26 <Rubi Fam - Last Filed: 12/07/23 14:23> Assessment and Plan - Plan Colitis: Continue Cipro IVPB for now, awaiting stool for C. diff evaluation (PCP also sent a stool and C.diff sample to an outside lab - no results available) If C. diff + and pt able to tolerate po, will switch to Vancomycin 250mg po QID Intractable Nausea and Vomiting with Dehydration: urine with increased specific gravity > 1.030 and 2+ ketones IVF for gentle hydration, NPO -> CL diet as tolerated Phenergan 6.25mg SIVP q 6h prn N/V Weakness: Bedside commode, fall precautions DVT prophylaxis: Lovenox 40mg sc daily Discharge Plan: Custodial Plan to discharge in: 48 Hours - Advance Directives Does patient have a Living Will: No Does patient have a Durable POA for Healthcare: No - Code Status/Comfort Care Code Status Assessed: Yes (Full) <Ema Henley - Last Filed: 12/07/23 14:16> - Plan Pt seen and examined. I agree with the note by the ELECTRONIC TECH. Pt is a 78 yo female with past medical history of COPD, dementia, Htn and crohns disease who presents with diarrhea x 1 week, headache, nausea/vomiting that began yesterday. Pt felt very weak to get out of the bed and the nurse at the assisted living facility sent her to the ER for evaluation for dehydration. Of note, attributes the nausea and vomiting to taking vitamin B12 yesterday. At bedside, pt is in NAD. A/P: Colitis: Will continue cipro and flagyl. Will follow up blood cx. CT abd showed colitis in the sigmoid and rectum. Dementia: Continue supportive care. Nausea, vomiting and diarrhea: Will continue IVFa nd prn antiemetic. Will f/u C diff toxin. if positive, will switch to po vanc. Htn: Continue home meds Hx of crohns disease: Will continue home med DVT ppx: SCD Code: full <Rubi Fam - Last Filed: 12/07/23 14:23>
[2023-12-07] MEDS ORDERED: PROMETHAZINE INJ 25 MG/ML AMP ONE (14:23)
[2023-12-07] MEDS ORDERED: METRONIDAZOLE 500mg IVPB 500 MG/100 ML BAG IV ONE (19:48)
[2023-12-07] MEDS ORDERED: CIPROFLOXACIN 400mg IV 400 MG/200 ML BAG IV ONE (19:48)
[2023-12-07] MEDS: NA CHLORIDE 0.9% 1,000 ML IV SCH (20:05)
[2023-12-07] MEDS: METRONIDAZOLE 500mg IVPB 500 MG/100 ML BAG IV SCH (20:05)
[2023-12-07 20:19] VITALS: BMI 18.1
[2023-12-07] MEDS: CIPROFLOXACIN 400mg IV 400 MG/200 ML BAG IV SCH (21:00)
[2023-12-08 03:42] LABS: Absolute Lymphocytes (CBC) 1.5 K/uL (0.7-4.9); Hematocrit 35.5 % (36.0-45.0); Lymphocytes % 23.1 % (15.3-44.8); MCV 98.8 fL (80-100); MPV 9.4 fL (7.6-11.3); Platelets 204 thou/uL (152-406); RBC Red Blood Cell Count 3.59 M/uL (3.86-4.86)
[2023-12-08 04:00] LABS: Albumin 2.6 g/dL (3.4-5.0); Bilirubin Total 0.3 mg/dL (0.2-1.0); Magnesium 1.7 mg/dL (1.6-2.4); Potassium 3.6 mEq/L (3.5-5.1); Protein, Total 5.7 g/dL (6.4-8.2)
[2023-12-08] MEDS: MAGNESIUM SULFATE 1 gm IVPB 1 GM/100 ML BAG IV ONE (04:23)
[2023-12-08] MEDS: ACETAMINOPHEN 325 MG TABLET PO PRN (04:23)
[2023-12-08] MEDS: POTASSIUM CL SA 10 MEQ TAB PO ONE (04:24)
[2023-12-08] MEDS: ENOXAPARIN 40 MG/0.4 ML SQ SCH (08:17)
--- NOTE | 2023-12-08 08:51 | P.PN ---
Date of Service: 12/08/23 no acute issues overnight, no stool specimen yet, electrolytes stable from yest Review of Systems 10-point ROS is otherwise unremarkable General: Weakness, Malaise Eyes: Unremarkable ENT: Unremarkable Respiratory: Unremarkable Cardiovascular: Unremarkable Gastrointestinal: Nausea, Vomiting, Diarrhea, As per HPI Genitourinary: Unremarkable Musculoskeletal: Unremarkable Integumentary: Unremarkable Neurological: Weakness Physical Examination - Physical Exam General: Alert, Oriented x3, Other (uncomfortable) HEENT: Atraumatic, Normocephalic Neck: Supple, 2+ carotid pulse no bruit Respiratory: Clear to auscultation bilaterally, Normal air movement Cardiovascular: No edema, Normal pulses, Normal S1 S2 Capillary refill: <2 Seconds Gastrointestinal: Hypoactive, No tenderness Musculoskeletal: No clubbing Integumentary: No rashes, No breakdown Neurological: Normal speech (g), Other (gait not tested) Lymphatics: No axilla or inguinal lymphadenopathy External genitalia: Deferred Rectal: Deferred - Studies Laboratory Data (last 24 hrs) 12/07/23 12/07/23 09:58 09:50 WBC 7.10 Hgb 13.5 Hct 40.4 Plt Count 222 Sodium 137 Potassium 3.6 BUN 18 Creatinine 0.85 Glucose 97 Total Bilirubin 0.5 AST 21 ALT 18 Alkaline Phosphatase 77 Lipase 26 Assessment and Plan Colitis: Continue Cipro IVPB for now, awaiting stool for C. diff evaluation (PCP also sent a stool and C.diff sample to an outside lab - no results available), no stool specimen to lab as of this am If C. diff + and pt able to tolerate po, will switch to Vancomycin 250mg po QID Intractable Nausea and Vomiting with Dehydration: urine with increased specific gravity > 1.030 and 2+ ketones IVF for gentle hydration, NPO -> CL diet as tolerated Phenergan 6.25mg SIVP q 6h prn N/V Weakness: Bedside commode, fall precautions DVT prophylaxis: Lovenox 40mg sc daily Discharge Plan: Half-Way Plan to discharge in: 48 Hours - Advance Directives Does patient have a Living Will: No Does patient have a Durable POA for Healthcare: No - Code Status/Comfort Care Code Status Assessed: Yes (Full) <Ema Henley - Last Filed: 12/08/23 08:46> Pt seen and examined. I agree with the note by the HAM DOCTOR. Pt is tolerating CLD. She wanst regular diet. Will continue iv abx. <Rubi Fam - Last Filed: 12/08/23 10:56>
[2023-12-08 10:45] VITALS: O2SAT 99
--- NOTE | 2023-12-08 14:45 | P.DS ---
Admission Date: 12/07/23 Discharge Date: 12/08/23 Comment: pt requests discharge, denies N/V today, one episode of diarrhea Reason for Admission: colitis, intractable N/V Brief History of Present Illness: Pt is a 78 year old female who presents for diarrhea x 1 week. Nausea and vomiting with headache began yesterday. States she has felt too weak to get out of bed since last night. [facility] recommended daughter, (Isatu) bring her in for dehydration. Pt reports she took B12 for the first time yesterday morning and believes that is what caused the vomiting. Denies abdominal pain, melena, hematochezia, or fever. Laboratory evaluation in the emergency department was normal and patient was to be discharged home with p.o. antibiotics; however, after the IV was removed the patient began vomiting again. We will keep her in the hospital with nausea medication, clear liquid diet as tolerated to await stool culture and C. difficile results. Hospital Course: Ms. Tidwell did well overnight with no nausea or vomiting, she had only 1 episode of diarrhea today. No sample collected for C. difficile. She does have result pending from her PCP. She would like to go back to [facility] today. We will discharge her with Cipro, Flagyl, and Zofran. She voices understanding of need for increased fluids, slow position changes, of need for follow-up and need for medication change if C. difficile is positive. Patient voices understanding of need to return to the emergency room if she is unable to tolerate outpatient setting treatment. <Ema Henley - Last Filed: 12/08/23 16:44> Admission Date: 12/07/23 Discharge Date: 12/08/23 Hospital Course: Pt seen and examined. I agree with the note by the SOCIAL SERVICE MANAGER. Ok to discharge pt. <Rubi Fam - Last Filed: 12/08/23 21:53> Disposition: TRANSFER TO SNF Discharge Condition: GOOD Vital Signs/Physical Exam: Temp Pulse Resp BP Pulse Ox 97 F 88 18 189/79 H 93 12/08/23 12:00 12/08/23 12:00 12/08/23 12:00 12/08/23 12:00 12/08/23 12:00 General: Alert, In no apparent distress, Oriented x3 HEENT: Atraumatic, Normocephalic Neck: Supple, 2+ carotid pulse no bruit Respiratory: Clear to auscultation bilaterally, Normal air movement Cardiovascular: No edema, Normal pulses Capillary refill: <2 Seconds Gastrointestinal: Soft and benign, Other (sergio) Musculoskeletal: No clubbing, No swelling Integumentary: No rashes, No breakdown Neurological: Normal speech, Normal strength at 5/5 x4 extr, Normal tone Lymphatics: No axilla or inguinal lymphadenopathy External genitalia: Deferred Rectal: Deferred Laboratory Data at Discharge: WBC 6.70 thou/uL (4.3-10.9) 12/08/23 03:30 Hgb 12.1 g/dL (12.0-15.0) D 12/08/23 03:30 Hct 35.5 % (36.0-45.0) L 12/08/23 03:30 Plt Count 204 thou/uL (152-406) 12/08/23 03:30 Sodium 140 mEq/L (136-145) 12/08/23 03:30 Potassium 3.6 mEq/L (3.5-5.1) 12/08/23 03:30 BUN 11 mg/dL (7-18) 12/08/23 03:30 Creatinine 0.58 mg/dL (0.55-1.02) 12/08/23 03:30 Glucose 87 mg/dL (74-106) 12/08/23 03:30 Magnesium 1.7 mg/dL (1.6-2.4) 12/08/23 03:30 Total Bilirubin 0.3 mg/dL (0.2-1.0) 12/08/23 03:30 AST 10 U/L (15-37) L 12/08/23 03:30 ALT 19 U/L (13-56) 12/08/23 03:30 Alkaline Phosphatase 54 U/L (45-117) D 12/08/23 03:30 Triglycerides 77 mg/dL (<150) 12/08/23 03:30 Cholesterol 167 mg/dL (<200) 12/08/23 03:30 HDL Cholesterol 61 mg/dL (40-60) H 12/08/23 03:30 Cholesterol/HDL Ratio 2.74 12/08/23 03:30 Lipase 26 U/L (13-75) 12/07/23 09:50 <Henley,Ema - Last Filed: 12/08/23 16:44> Vital Signs/Physical Exam: Temp Pulse Resp BP Pulse Ox 97.9 F 74 16 129/78 93 12/08/23 16:00 12/08/23 16:00 12/08/23 16:00 12/08/23 16:00 12/08/23 16:00 Laboratory Data at Discharge: WBC 6.70 thou/uL (4.3-10.9) 12/08/23 03:30 Hgb 12.1 g/dL (12.0-15.0) D 12/08/23 03:30 Hct 35.5 % (36.0-45.0) L 12/08/23 03:30 Plt Count 204 thou/uL (152-406) 12/08/23 03:30 Sodium 140 mEq/L (136-145) 12/08/23 03:30 Potassium 3.6 mEq/L (3.5-5.1) 12/08/23 03:30 BUN 11 mg/dL (7-18) 12/08/23 03:30 Creatinine 0.58 mg/dL (0.55-1.02) 12/08/23 03:30 Glucose 87 mg/dL (74-106) 12/08/23 03:30 Magnesium 1.7 mg/dL (1.6-2.4) 12/08/23 03:30 Total Bilirubin 0.3 mg/dL (0.2-1.0) 12/08/23 03:30 AST 10 U/L (15-37) L 12/08/23 03:30 ALT 19 U/L (13-56) 12/08/23 03:30 Alkaline Phosphatase 54 U/L (45-117) D 12/08/23 03:30 Triglycerides 77 mg/dL (<150) 12/08/23 03:30 Cholesterol 167 mg/dL (<200) 12/08/23 03:30 HDL Cholesterol 61 mg/dL (40-60) H 12/08/23 03:30 Cholesterol/HDL Ratio 2.74 12/08/23 03:30 Lipase 26 U/L (13-75) 12/07/23 09:50 <Rubi Fam - Last Filed: 12/08/23 21:53> Diet: AHA Activity: Ad ernie <Ema Henley - Last Filed: 12/08/23 16:44> <Rubi Fam Mary Ann - Last Filed: 12/08/23 21:53> Home Medications: Ciprofloxacin HCl [Cipro 500 MG Tablet] 500 mg PO DAILY 10 Days #10 tab 12/08/23 Donepezil HCl 10 mg PO BEDTIME 12/08/23 Memantine HCl 10 mg PO BID 12/08/23 Omeprazole 20 mg PO DAILY 12/08/23 Ondansetron [Zofran] 4 mg PO Q6H PRN #15 tab 12/08/23 Simvastatin 5 mg PO BEDTIME 12/08/23 metroNIDAZOLE [Flagyl] 500 mg PO Q8H 10 Days #30 tab 12/08/23 predniSONE [Deltasone*] 10 mg PO DAILY 12/08/23 New Medications: Ciprofloxacin HCl [Cipro 500 MG Tablet] 500 mg PO DAILY 10 Days #10 tab metroNIDAZOLE [Flagyl] 500 mg PO Q8H 10 Days #30 tab Ondansetron [Zofran] 4 mg PO Q6H PRN #15 tab PRN Reason: Nausea / Vomiting Physician Discharge Instructions: Continue ad ernie activity as tolerated. Take Cipro and flagyl for 10 more days. Follow up with PCP within 1 week Followup: Lonnie Gonzales DO [Primary Care Provider] - 1 Week (follow up )
[2023-12-08] MEDS: ACETAMINOPHEN 500 MG TAB PO ONE (15:03)
[2023-12-08] MEDS: LABETALOL 20 MG/4ML SYRINGE IV ONE (15:03)
[2023-12-08 16:28] VITALS: BP 129/78; TEMP 97.9
== END 2023-12-08 16:25 ==
LOC: ER 09:26 → ERHOLD 13:48 → INTOOBSV 13:48 → 2ND 20:41
PROVIDERS: ADMIT Hospitalist; ATTEND Hospitalist
DX: K52.9 Noninfective gastroenteritis and colitis, unspecified (principal); R53.1 Weakness; E86.0 Dehydration; R51.9 Headache, unspecified; I10 Essential (primary) hypertension; J44.9 Chronic obstructive pulmonary disease, unspecified; F03.90 Unspecified dementia, unspecified severity, without behavioral disturbance, psychotic disturbance, mood disturbance, and anxiety; Z88.5 Allergy status to narcotic agent
CPT/HCPCS: 85025 ×2; 81001; 36415; 83735; 80061; 83690; 80053 ×2; 74177; 99284; Q9967; J2550; Q0162; J3475; J1650; J2405; J0744 ×2; J7030 ×3; J3420

== ENCOUNTER 2023-12-09 06:10 | Inpatient (IN) | payer OTHER, MEDICARE ==
[2023-12-09 06:49] LABS: Absolute Lymphocytes (CBC) 1.4 K/uL (0.7-4.9); Hematocrit 42.2 % (36.0-45.0); Lymphocytes % 18.5 % (15.3-44.8); MCV 98.4 fL (80-100); MPV 9.4 fL (7.6-11.3); Platelets 210 thou/uL (152-406); RBC Red Blood Cell Count 4.29 M/uL (3.86-4.86)
[2023-12-09 06:51] LABS: Protime INR 1.03
[2023-12-09 07:03] LABS: Albumin 3.3 g/dL (3.4-5.0); Bilirubin Direct 0.1 mg/dL (0-0.2); Bilirubin Indirect, Calculated 0.2 mg/dL (0.2-0.8); Bilirubin Total 0.3 mg/dL (0.2-1.0); Magnesium 1.9 mg/dL (1.6-2.4); Potassium 3.1 mEq/L (3.5-5.1)
[2023-12-09 07:07] LABS: Troponin High Sensitivity 184.1 pg/mL (<58.9)
--- NOTE | 2023-12-09 07:42 | RAD REPORT ---
EXAM DESCRIPTION: CT - Head C Spine Cap Wo Con - 12/09/2023 6:57 am CLINICAL HISTORY: Head and neck injury with chest and abdominal pain status post fall TECHNIQUE: Computed axial tomography of head, neck, chest, abdomen and pelvis obtained. IV and oral contrast not requested. Coronal and sagittal reconstruction performed. All CT scans are performed using dose optimization technique as appropriate and may include automated exposure control or mA/KV adjustment according to patient size. COMPARISON: 199911/09/2022 CT FINDINGS: An intracranial bleed is not seen. The ventricles are normal in caliber. An extra-axial fluid collection is not noted. Moderate low-dens ity periventricular, deep and subcortical white matter likely ischemic changes secondary to small ves win disease Fluid within the sinuses/mastoids is not seen. A cervical fracture is not seen. No dislocation is noted. The evaluation of mediastinum, anupama, vessels, solid organs and bowel are limited secondary to the lac k of contrast administration. A mediastinal hematoma is not noted. A pleural effusion is not seen. A lung contusion is not present. The liver,spleen, pancreas, adrenals,kidneys and bladder do not demonstrate an acute traumatic injury Old thoracic and lumbar vertebral fractures IMPRESSION: No acute intracranial abnormality is seen. A cervical fracture is not visualized. If the patient continues to have symptoms to suggest intracran ial/spinal cord pathology MRI be recommended No acute traumatic abnormality involving the chest, abdomen or pelvis
--- NOTE | 2023-12-09 08:12 | ER ---
Nurse's Notes [facility] Name: Shwetha Chirinos Age: 78 yrs Sex: Female : 1945 Arrival Date: 12/09/2023 Time: 06:10 Bed 6 Private MD: Diagnosis: Fall;Dizziness;Hypoxia;Elevated troponin Presentation: 12/09 06:12 Chief complaint: EMS states: toned out for mechanical fall while trying to go to the [facility] bathroom; upon EMS arrival to [place], pt was already back in bed; pt complains of back pain; denies LOC. Coronavirus screen: Client denies travel out of the [place] in the last 14 days. Ebola Screen: No symptoms or risks identified at this time. Initial Sepsis Screen: Does the patient meet any 2 criteria? No. Patient's initial sepsis screen is negative. Does the patient have a suspected source of infection? No. Patient's initial sepsis screen is negative. Risk Assessment: Do you want to hurt yourself or someone else? Patient reports no desire to harm self or others. Onset of symptoms was December 09, 2023 at 05:10. 06:12 Method Of Arrival: EMS: [facility] 06:12 Acuity: TAYLOR 3 [facility] 06:12 Care prior to arrival: Medication(s) given: 30 mg Toradol IM in Right Deltoid. km8 Triage Assessment: 06:14 General: Appears in no apparent distress. uncomfortable, Behavior is calm, cooperative, km8 appropriate for age. Pain: Complains of pain in thoracic area Pain currently is 9 out of 10 on a pain scale. EENT: No signs and/or symptoms were reported regarding the EENT system. Neuro: Level of Consciousness is awake, alert, obeys commands, Oriented to person, place, time, situation. Cardiovascular: Denies chest pain, shortness of breath, Patient's skin is warm and dry. Respiratory: Airway is patent Respiratory effort is even, unlabored, Respiratory pattern is regular, symmetrical. GI: No signs and/or symptoms were reported involving the gastrointestinal system. : No signs and/or symptoms were reported regarding the genitourinary system. Derm: Skin is intact, is healthy with good turgor, Skin is dry, Skin is pink, warm \T\ dry. normal, Skin temperature is cool. Musculoskeletal: Circulation, motion, and sensation intact. Range of motion: intact in all extremities, Reports pain in thoracic area. Historical: - Allergies: 06:14 Codeine; km8 - PMHx: 06:14 chron's disease (Unknown); COPD; Dementia; Hypertension; km8 - PSHx: 06:14 Cholecystectomy; hysterectomy; km8 - Immunization history:: Client reports having NOT received the Covid vaccine. Flu vaccine is up to date. - Social history:: Smoking status: Patient/guardian denies using tobacco, but has a distant history of tobacco abuse, Patient/guardian denies using alcohol, street drugs. - Family history:: not pertinent. Screenin:16 [facility] ED Fall Risk Assessment (Adult) History of falling in the last 3 months, km8 including since admission Yes- single mechanical fall (1 pt) Confusion or Disorientation No (0 pts) Intoxicated or Sedated No (0 pts) Impaired Gait No (0 pts) Mobility Assist Device Used No (0 pt) Altered Elimination No (0 pt) Score/Fall Risk Level 0 - 2 = Low Risk Oriented to surroundings, Maintained a safe environment, Educated pt \T\ family on fall prevention, incl call for assistance when getting out of bed, Assessed \T\ reinforced patient's understanding of fall precautions. Abuse screen: Denies threats or abuse. Denies injuries from another. Nutritional screening: No deficits noted. Tuberculosis screening: No symptoms or risk factors identified. Assessment: 06:16 General: see triage assessment. 8 07:27 Reassessment: Patient appears in no apparent distress at this time. Patient and/or db family updated on plan of care and expected duration. Pain level reassessed. Patient is alert, oriented x 3, equal unlabored respirations, skin warm/dry/pink. General: Appears in no apparent distress. comfortable, Behavior is calm, cooperative. Neuro: Level of Consciousness is awake, alert, obeys commands, Oriented to person, place, time, situation. Respiratory: Airway is patent Respiratory effort is even, unlabored, Respiratory pattern is regular, symmetrical. 09:19 Reassessment: Patient appears in no apparent distress at this time. Patient and/or db family updated on plan of care and expected duration. Pain level reassessed. Patient is alert, oriented x 3, equal unlabored respirations, skin warm/dry/pink. 19:31 General: Attempted to call report, Nurse will call back. jw7 20:13 General: Report given to Charge Nurse. jw7 Vital Signs: 06:12 BP 178 / 89; Pulse 74; Resp 18; Temp 98.7(TE); Pulse Ox 88% on R/A; Weight 50.8 kg (M); km8 Height 5 ft. 5 in. ; Pain 9/10; 07:15 BP 136 / 72; Pulse 73; Resp 16; Pulse Ox 96% on R/A; db 08:00 BP 136 / 70; Pulse 73; Resp 16; Pulse Ox 96% on R/A; db 09:00 BP 127 / 71; Pulse 75; Resp 18; Pulse Ox 95% on R/A; db 06:12 Body Mass Index 18.64 (50.80 kg, 165.1 cm) km8 06:12 Pain Scale: Adult km8 Vitals: 07:15 Cardiac Rhythm Assessment Regular Sinus rhythm. db Amanda Coma Score: 06:16 Eye Response: spontaneous(4). Motor Response: obeys commands(6). Verbal Response: km8 oriented(5). Total: 15. 06:45 Eye Response: spontaneous(4). Motor Response: obeys commands(6). Verbal Response: sp4 oriented(5). Total: 15. NIH Stroke Scale Scores: 06:45 NIHSS Score: 0 sp4 ED Course: 06:11 Patient arrived in ED. km8 06:14 Triage completed. km8 06:14 Arm band placed on right wrist. km8 06:16 Marquise Cordero MD is Attending Physician. sp4 06:16 Patient has correct armband on for positive identification. Bed in low position. Call km8 light in reach. Side rails up X2. Pulse ox on. NIBP on. Warm blanket given. Pillow given. 06:16 Oxygen administration via nasal cannula \T\ 2L/min Response to oxygen therapy: symptoms km8 improved. 06:43 EKG done, by ED staff, reviewed by Marquise Cordero MD. jw7 06:58 Attending Physician role handed off by Marquise Cordero MD rt 06:58 Miki Schultz MD is Attending Physician. rt 06:59 CT Traumagram (Head C Spine CAP wo con) In Process Unspecified. EDMS 08:02 Opal Lim MD is Hospitalizing Provider. rt 08:36 CT Chest For PE Angio In Process Unspecified. EDMS 15:53 No provider procedures requiring assistance completed. Patient admitted, IV remains in db place. 19:00 Provided Education on: Need for admit. jw7 Administered Medications: 09:50 Drug: Acetaminophen PO 650 mg PO once Route: PO; db 15:52 Follow up: Response: No adverse reaction db 16:05 Not Given (Patient Refused; PATIENT REFUSED PER PREVIOUS SHIFTt): db hydrocodone-acetaminophen5 mg-325 mg 1 tabs PO once 16:05 Not Given (NOT GIVEN BY PREVIOUS SHIFT): ondansetron4 mg PO once db Medication: 06:16 VIS not applicable for this client. km8 Outcome: 08:12 Decision to Hospitalize by Provider. rt 15:53 Admitted to ER Hold. Please see [employer] for further documentation. db 15:53 Condition: stable 15:53 Instructed on the need for admit, 21:11 Patient left the ED. jw7 NIH Stroke Scale - NIH Stroke Score Date: 12/09/2023 Time: 06:45 Total Score = 0 10. Dysarthria (speech clarity - read or repeat words) - 0(Normal) 11. Extinction and Inattention (visual/tactile/auditory/spatial/personal) - 0(No abnormality) 1a. Level of Consciousness (LOC) - 0(Alert) 1b. Level of Consciousness (LOC) (Month \T\ Age) - 0(Both) 1c. LOC Commands (Open \T\ Closes Eyes/Inventory Control Supervisor) - 0(Both) 2. Best Gaze (Lateral Gaze Paresis) - 0(Normal) 3. Visual Field Loss - 0(No visual loss) 4. Facial Palsy - 0(Normal) 5a. Left Arm: Motor (10-second hold) - 0(No drift) 5b. Right Arm: Motor (10-second hold) - 0(No drift) 6a. Left Leg: Motor (5-second hold - always test supine) - 0(No drift) 6b. Right Leg: Motor (5-second hold - always test supine) - 0(No drift) 7. Limb Ataxia (finger/nose \T\ heel/holguin - test with eyes open) - 0(Absent) 8. Sensory Loss (pinprick arms/legs/face) - 0(Normal) 9. Best Language: Aphasia (description/naming/reading) - 0(No aphasia) Initials: sp4 Signatures: Dispatcher [employer] EDLindsay Nice RN RN jw7 Zeenat Workman RN RN db Miki Schultz MD MD rt Marquise Cordero MD MD sp4 Vikki Kelly RN RN km8 Corrections: (The following items were deleted from the chart) 06:16 06:12 BP 178 / 89; Pulse 74bpm; Resp 18bpm; Pulse Ox 88% RA; 50.8 kg Measured; km8 Height 5 ft. 5 in.; BMI: 18.6; Pain 9/10, Adult; km8
--- NOTE | 2023-12-09 08:12 | EDPHYS ---
Physician Documentation [facility] Name: Shwetha Chirinos Age: 78 yrs Sex: Female : 1945 Arrival Date: 12/09/2023 Time: 06:10 Bed 6 Private MD: ED Physician Miki Schultz HPI: 12/09 06:16 This 78 yrs old Female presents to ER via EMS with complaints of fall, back sp4 pain . 06:42 28-year-old female presents with complaint of acute fall at the assisted care living.. sp4 Patient arrived with EMS hypertensive with complaint of upper to lower back pain. Denied LOC. Reporting falling backward. Historical: - Allergies: 06:14 Codeine; km8 - PMHx: 06:14 chron's disease (Unknown); COPD; Dementia; Hypertension; km8 - PSHx: 06:14 Cholecystectomy; hysterectomy; km8 - Immunization history:: Client reports having NOT received the Covid vaccine. Flu vaccine is up to date. - Social history:: Smoking status: Patient/guardian denies using tobacco, but has a distant history of tobacco abuse, Patient/guardian denies using alcohol, street drugs. - Family history:: not pertinent. ROS: 06:42 Constitutional: Negative for fever, chills, and weight loss, positive upper back pain, sp4 positive lower back pain 06:42 All other systems are negative, Exam: 06:42 Constitutional: This is a well developed, well nourished patient who is awake, alert, sp4 and in no acute distress. Frail elderly female. Head/Face: Normocephalic, atraumatic. Eyes: Pupils equal round and reactive to light, extra-ocular motions intact. Lids and lashes normal. Conjunctiva and sclera are not injected. Cornea within normal limits. Periorbital areas with no swelling, redness, or edema. ENT: Nares patent. No nasal discharge, no septal abnormalities noted. Tympanic membranes are normal and external auditory canals are clear. Oropharynx with no redness, swelling, or masses, exudates, or evidence of obstruction, uvula midline. Mucous membranes moist. Neck: Trachea midline, no thyromegaly or masses palpated, and no cervical lymphadenopathy. Supple, full range of motion without nuchal rigidity, or vertebral point tenderness. Chest/axilla: Normal chest wall appearance and motion. Nontender with no deformity. No lesions are appreciated. Cardiovascular: Regular rate and rhythm with a normal S1 and S2. No gallops, murmurs, or rubs. Normal PMI, no JVD. No pulse deficits. Respiratory: Lungs have equal breath sounds bilaterally, clear to auscultation and percussion. No rales, rhonchi or wheezes noted. No increased work of breathing, no retractions or nasal flaring. Abdomen/GI: Soft, with normal bowel sounds. No distension or tympany. No guarding or rebound. No evidence of tenderness throughout. Back: No spinal tenderness. No costovertebral tenderness. Skin: Warm, dry with normal turgor. Normal color with no rashes, no lesions, and no evidence of cellulitis. MS/ Extremity: Pulses equal, no cyanosis. Neurovascular intact. Full, normal range of motion. Neuro: Awake and alert, GCS 15, oriented to person, place, time, and situation. Cranial nerves II-XII grossly intact. Motor strength 5/5 in all extremities. Sensory grossly intact. Psych: Awake, alert, with orientation to person, place and time. Behavior, mood, and affect are within normal limits 06:54 ECG was reviewed by the Attending Physician. EKG time 0 6:28 AM normal sinus rhythm at sp4 the rate of 74, muscle tremor artifact, otherwise normal EKG Vital Signs: 06:12 BP 178 / 89; Pulse 74; Resp 18; Temp 98.7(TE); Pulse Ox 88% on R/A; Weight 50.8 kg (M); [facility] Height 5 ft. 5 in. ; Pain 9/10; 07:15 BP 136 / 72; Pulse 73; Resp 16; Pulse Ox 96% on R/A; db 08:00 BP 136 / 70; Pulse 73; Resp 16; Pulse Ox 96% on R/A; db 09:00 BP 127 / 71; Pulse 75; Resp 18; Pulse Ox 95% on R/A; db 06:12 Body Mass Index 18.64 (50.80 kg, 165.1 cm) [facility] 06:12 Pain Scale: Adult [facility] NIH Stroke Scale Scores: 06:45 NIHSS Score: 0 sp4 [place] Coma Score: 06:16 Eye Response: spontaneous(4). Motor Response: obeys commands(6). Verbal Response: km8 oriented(5). Total: 15. 06:45 Eye Response: spontaneous(4). Motor Response: obeys commands(6). Verbal Response: sp4 oriented(5). Total: 15. MDM: 06:17 Patient medically screened. sp4 06:56 Differential Diagnosis altered mental status, sepsis, flu, Chest contusion, back sp4 contusion, spinal fractures . Data reviewed: vital signs, nurses notes, lab test result(s), EKG, radiologic studies, CT scan. Consideration of Admission/Observation Escalation of care including admission/observation considered. Transition of care: After a detail discussion of the patient's case, care is transferred to Miki Schultz MD. ED course: Patient care will be signed out to Dr. Schultz for further care. 08:12 Management of patient was discussed with the following: Hospitalist: Agrees to admit. rt Independent interpretation of the following test(s) in the Emergency Department CT Scan: My interpretation is No consolidations and interpretation CT scan images. Counseling: I had a detailed discussion with the patient and/or guardian regarding the historical points, exam findings, and any diagnostic results supporting the discharge/admit diagnosis, lab results, radiology results, the need for further work-up and treatment in the hospital. 12/09 06:16 Order name: Basic Metabolic Panel; Complete Time: 07:10 sp4 12/09 06:16 Order name: CBC with Diff; Complete Time: 06:58 sp4 12/09 06:16 Order name: LFT's; Complete Time: 07:10 sp4 12/09 06:16 Order name: Magnesium; Complete Time: 07:10 sp4 12/09 06:16 Order name: NT PRO-BNP; Complete Time: 07:10 sp4 12/09 06:16 Order name: PT-INR; Complete Time: 06:58 sp4 12/09 06:16 Order name: Troponin HS; Complete Time: 07:10 sp4 12/09 08:59 Order name: Urinalysis w/ reflexes EDND 12/09 08:59 Order name: Basic Metabolic Panel EDND 12/09 08:59 Order name: Basic Metabolic Panel EDND 12/09 08:59 Order name: Basic Metabolic Panel EDND 12/09 08:59 Order name: Basic Metabolic Panel EDND 12/09 08:59 Order name: CBC with Automated Diff EDMS 12/09 08:59 Order name: CBC with Automated Diff EDMS 12/09 08:59 Order name: CBC with Automated Diff EDMS 12/09 08:59 Order name: CBC with Automated Diff EDMS 12/09 08:59 Order name: Magnesium EDMS 12/09 08:59 Order name: Magnesium EDMS 12/09 08:59 Order name: Magnesium EDMS 12/09 08:59 Order name: Magnesium EDMS 12/09 09:00 Order name: NT PRO-BNP EDMS 12/09 09:00 Order name: NT PRO-BNP EDMS 12/09 09:00 Order name: NT PRO-BNP EDMS 12/09 09:00 Order name: NT PRO-BNP EDMS 12/09 09:00 Order name: Troponin High Sensitivity EDMS 12/09 09:00 Order name: Troponin High Sensitivity EDMS 12/09 09:00 Order name: Troponin High Sensitivity EDMS 12/09 09:00 Order name: Troponin High Sensitivity EDMS 12/09 06:17 Order name: CT Traumagram (Head C Spine CAP wo con); Complete Time: 07:43 sp4 12/09 08:14 Order name: CT Chest For PE Angio; Complete Time: 08:48 cm12 12/09 08:59 Order name: Echo with Doppler EDMS 12/09 06:16 Order name: EKG; Complete Time: 06:17 sp4 12/09 08:56 Order name: CONS Physician Consult EDND 12/09 06:16 Order name: Cardiac monitoring; Complete Time: 06:39 sp4 12/09 06:16 Order name: EKG - Nurse/Tech; Complete Time: 06:39 sp4 12/09 06:16 Order name: IV Saline Lock; Complete Time: 06:39 sp4 12/09 06:16 Order name: Labs collected and sent; Complete Time: 06:39 sp4 12/09 06:16 Order name: O2 Per Protocol; Complete Time: 06:39 sp4 12/09 06:16 Order name: O2 Sat Monitoring; Complete Time: 06:39 sp4 EC:54 Rate is 74 beats/min. Rhythm is regular, Normal Sinus Rhythm. QRS [place] is Normal. [place] sp4 interval is normal. QRS interval is normal. QT interval is normal. No Q waves. T waves are Normal. No ST changes noted. Clinical impression: Normal ECG. Interpreted by me. Reviewed by me. Administered Medications: 09:50 Drug: Acetaminophen PO 650 mg PO once Route: PO; db 15:52 Follow up: Response: No adverse reaction db 16:05 Not Given (Patient Refused; PATIENT REFUSED PER PREVIOUS SHIFTt): db hydrocodone-acetaminophen5 mg-325 mg 1 tabs PO once 16:05 Not Given (NOT GIVEN BY PREVIOUS SHIFT): ondansetron4 mg PO once db Disposition Summary: 12/09/23 08:12 Hospitalization Ordered Notes: Hospitalization Status: Observation rt Provider: Opal Lim rt Condition: Stable rt Problem: new rt Symptoms: are unchanged rt Bed/Room Type: Standard rt Location: Telemetry/MedSurg (observation)(12/09/23 19:00) bd Room Assignment: [facility](12/09/23 19:00) Diagnosis - Fall rt - Dizziness rt - Hypoxia rt - Elevated troponin rt Discharge Instructions: - Discharge Summary Sheet km8 Forms: - Medication Reconciliation Form rt - Leadership Thank You Letter rt - SBAR form km8 NIH Stroke Scale - NIH Stroke Score Date: 12/09/2023 Time: 06:45 Total Score = 0 10. Dysarthria (speech clarity - read or repeat words) - 0(Normal) 11. Extinction and Inattention (visual/tactile/auditory/spatial/personal) - 0(No abnormality) 1a. Level of Consciousness (LOC) - 0(Alert) 1b. Level of Consciousness (LOC) (Month \T\ Age) - 0(Both) 1c. LOC Commands (Open \T\ Closes Eyes/Biscuit Factory Worker) - 0(Both) 2. Best Gaze (Lateral Gaze Paresis) - 0(Normal) 3. Visual Field Loss - 0(No visual loss) 4. Facial Palsy - 0(Normal) 5a. Left Arm: Motor (10-second hold) - 0(No drift) 5b. Right Arm: Motor (10-second hold) - 0(No drift) 6a. Left Leg: Motor (5-second hold - always test supine) - 0(No drift) 6b. Right Leg: Motor (5-second hold - always test supine) - 0(No drift) 7. Limb Ataxia (finger/nose \T\ heel/holguin - test with eyes open) - 0(Absent) 8. Sensory Loss (pinprick arms/legs/face) - 0(Normal) 9. Best Language: Aphasia (description/naming/reading) - 0(No aphasia) Initials: sp4 Signatures: Dispatcher [employer] EDInessa Hanna Jose RN RN ja1 Alvarado Patino, RN RN as6 Zeenat Workman, RN RN db Miki Schultz MD MD rt Marquise Cordero MD MD sp4 Vikki Kelly RN RN km8 Corrections: (The following items were deleted from the chart) 11:10 08:12 Telemetry/MedSurg (observation) rt bd 11:10 08:12 rt bd 11:29 11:10 [facility] ER HOLD bd bd 11:29 11:10 ERHOLD- bd bd 11:31 11:29 415 bd ja1 12:09 11:31 ja1 as6 12:13 11:29 Telemetry/MedSurg (observation) bd bd 12:13 12:09 415 as6 bd 19:00 12:13 [facility] ER HOLD bd bd 19:00 12:13 ERHOLD- bd bd
--- NOTE | 2023-12-09 08:47 | RAD REPORT ---
EXAM DESCRIPTION: CT - Chest For Pe Angio - 12/09/2023 8:34 am CLINICAL HISTORY: Shortness of breath COMPARISON: 2021 TECHNIQUE: Dynamically enhanced axial 3 mm thick images of the chest were obtained during administra tion of 100 mL Isovue 370 IV contrast. Coronal and oblique reconstruction images were generated and r eviewed. Exam utilizes a protocol for optimal evaluation of pulmonary arterial tree. Maximum intensity projections 3D imaging was utilized All CT scans are performed using dose optimization technique as appropriate and may include automated exposure control or mA/KV adjustment according to patient size. FINDINGS: A pulmonary embolus is not seen. A thoracic aortic aneurysm is not noted. A pleural effusion is not seen. A pericardial effusion is not seen. Aberrant left subclavian artery A lung consolidation is not present. COPD present IMPRESSION: Negative for a pulmonary embolism.
--- NOTE | 2023-12-09 09:08 | P.HP ---
Certification for Inpatient Patient admitted to: Inpatient With expected LOS: <2 Midnights Practitioner: I am a practitioner with admitting privileges, knowledge of patient current condition, hospital course, and medical plan of care. Services: Services provided to patient in accordance with Admission requirements found in Title 42 Section 412.3 of the Code of Federal Regulations Patient History Date of Service: 12/09/23 History of Present Illness: 78-year-old female with a past medical history of Crohn's disease, COPD, dementia, hypertension, presents to the emergency room with fall. She reports fall after losing her balance. She reports using a walker as baseline, reports residing in assisted living facility. She reports moderate generalized weakness, poor appetite from recent colitis admission, diagnosis. She denies hitting her head, reports mid back pain,, generalized weakness, no reported numbness tingling, she reports mild chest pressure 4 out of 10, nonradiating. She reports mild shortness of breath, no reported nausea vomiting diarrhea, cough, shortness of breath. Plan to admit for fall, dizziness, elevated troponin, hypoxia. CT PE protocol negative for PE, CT of the head negative for acute fracture, NIH stroke scale of 0, EKG 74 beats/min. Rhythm is regular, Normal Sinus Rhythm. QRS [place] is Normal. [place] interval is normal. QRS interval is normal. QT interval is normal. No Q waves. T waves are Normal. No ST changes noted. Clinical impression: Normal ECG, laboratory evaluation hypokalemia potassium 3.1, elevated troponin 1.84, elevated BNP 490, CBC unremarkable Allergies codeine Allergy (Verified 02/22/23 08:00) "Crazy feeling" Home Medications: Ciprofloxacin HCl [Cipro 500 MG Tablet] 500 mg PO DAILY 10 Days #10 tab 12/08/23 Donepezil HCl 10 mg PO BEDTIME 12/08/23 Memantine HCl 10 mg PO BID 12/08/23 Omeprazole 20 mg PO DAILY 12/08/23 Ondansetron [Zofran] 4 mg PO Q6H PRN #15 tab 12/08/23 Simvastatin 5 mg PO BEDTIME 12/08/23 metroNIDAZOLE [Flagyl] 500 mg PO Q8H 10 Days #30 tab 12/08/23 predniSONE [Deltasone*] 10 mg PO DAILY 12/08/23 - Past Medical/Surgical History Diabetic: No -: COPD -: GERD -: Hyperlipidemia -: Crohn's disease -: microvascular dementia -: Cholecystectomy -: Hysterectomy -: tonsillectomy -: Back injections Psychosocial/ Personal History: Patient is retired and lives alone with puppy, pt recently moved to [facility] post dx of microvascular dementia - Social History Alcohol use: No CD- Drugs: No Caffeine use: Yes Review of Systems PER HPI Physical Examination - Physical Exam General: Alert, In no apparent distress, Oriented x3 HEENT: Atraumatic, Normocephalic Neck: Supple, 2+ carotid pulse no bruit Respiratory: Normal air movement, Other (88% on room air) Cardiovascular: No edema, Normal pulses, Regular rate/rhythm Capillary refill: <2 Seconds Gastrointestinal: Normal bowel sounds, Soft and benign Musculoskeletal: Other (Reports mid back pain, generalized weakness) Integumentary: No rashes, No breakdown Neurological: Normal speech, Normal strength at 5/5 x4 extr - Studies Laboratory Data (last 24 hrs) 12/09/23 12/09/23 12/09/23 06:29 06:29 06:29 WBC 7.50 Hgb 14.2 D Hct 42.2 Plt Count 210 PT 11.3 INR 1.03 Sodium 142 Potassium 3.1 L D BUN 11 Creatinine 0.75 Glucose 95 Magnesium 1.9 Total Bilirubin 0.3 AST 23 ALT 26 Alkaline Phosphatase 60 Assessment and Plan - Plan Assessment plan NSTEMI acute Elevated troponin acute Elevated BNP acute Hypoxia acute Cardiology consult, telemetry, echo ordered Trend troponins, trend BNP Troponin 184, CT PE protocol negative for PE NIH stroke scale of 0, EKG 74 beats/min. Rhythm is regular, Normal Sinus Rhythm. QRS [place] is Normal. [place] interval is normal. QRS interval is normal. QT interval is normal. No Q waves. T waves are Normal. No ST changes noted. Clinical impression: Normal ECG, elevated troponin 18.1, , elevated BNP 490, CBC unremarkable Fall acute Generalized weakness acute Fall precautions CT of the head negative for acute fracture PT eval, as needed analgesia Hypokalemia acute laboratory evaluation hypokalemia potassium 3.1, Trend electrolytes replace as needed History of Crohn's disease Recent admission for colitis Reports generalized weakness from poor appetite History of COPD History of dementia History of hypertension O2 2 L keep sats greater than 90% Resume appropriate home meds Full code DVT Lovenox 1 mg/kg Diet cardiac Disposition: assisted living Discharge Plan: Other (Assisted living) Plan to discharge in: 48 Hours - Advance Directives Does patient have a Living Will: Yes Does patient have a Durable POA for Healthcare: No - Code Status/Comfort Care Code Status: Full Code Critical Care: No Time Spent Managing Pts Care (In Minutes): 55
[2023-12-09] MEDS ORDERED: ACETAMINOPHEN 325 MG TABLET ONE (09:53)
[2023-12-09] MEDS: FUROSEMIDE 20 MG/ 2ML VIAL IV ONE (12:00)
[2023-12-09] MEDS: POTASSIUM 25 MEQ EFFERV TAB PO ONE (12:01)
[2023-12-09] MEDS: ENOXAPARIN 60 MG/0.6 ML SQ SCH (12:08)
[2023-12-09] MEDS ORDERED: FUROSEMIDE 20 MG/ 2ML VIAL ONE (13:22)
[2023-12-09] MEDS ORDERED: ENOXAPARIN 60 MG/0.6 ML SQ ONE (13:22)
[2023-12-09] MEDS ORDERED: POTASSIUM 25 MEQ EFFERV TAB ONE (13:22)
[2023-12-09 13:26] LABS: Specific Gravity > 1.030 (1.005-1.030); Urine Bilirubin NEGATIVE (Negative); Urine Blood Negative (Negative); Urine Clarity Clear (Clear); Urine Color Colorless (Yellow); Urine Glucose NEGATIVE (Negative); Urine Protein NEGATIVE (Negative); Urine Urobilinogen Normal (Normal); Urine pH 7.5 (5.0-7.0)
[2023-12-09] MEDS ORDERED: MORPHINE 2 MG/ML SYR ONE (16:19)
[2023-12-09] MEDS: MORPHINE 2 MG/ML SYR IV PRN (16:20)
[2023-12-09 16:59] VITALS: BMI 18.6
[2023-12-09] MEDS: INFLUENZA VACCINE (for 6+ mo) 0.5 ML DOSE IMVAC ONE (20:00)
[2023-12-09] MEDS: PNEUMOCOCCAL VACCINE 0.5 ML IMVAC ONE (20:00)
[2023-12-09] MEDS ORDERED: HOME MED 1 EA UNK (Donepezil Hcl [Donepezil Hcl] 10 MG Tablet) PO SCH (21:00)
[2023-12-09] MEDS ORDERED: SIMVASTATIN 5 MG PO SCH (21:00)
[2023-12-09] MEDS: MEMANTINE HCL 10 MG TABLET PO SCH (21:48)
[2023-12-09] MEDS: DONEPEZIL HCL 5 MG TAB PO SCH (21:49)
[2023-12-09] MEDS: ATORVASTATIN 10 MG TAB PO SCH (21:49)
[2023-12-10] MEDS: ACETAMINOPHEN 500 MG TAB PO PRN (02:05)
[2023-12-10 02:21] LABS: Absolute Lymphocytes (CBC) 1.1 K/uL (0.7-4.9); Hematocrit 39.8 % (36.0-45.0); Lymphocytes % 11.3 % (15.3-44.8); MCV 99.1 fL (80-100); MPV 9.5 fL (7.6-11.3); Platelets 202 thou/uL (152-406); RBC Red Blood Cell Count 4.01 M/uL (3.86-4.86)
[2023-12-10 02:31] LABS: Potassium 3.6 mEq/L (3.5-5.1)
--- NOTE | 2023-12-10 03:21 | CON ---
Date of Consultation: 12/09/2023 Reason For Consultation: Elevated troponin. History Of Present Illness: A 78-year-old female has history of Crohn's disease, COPD, dementia, hyp ertension, presented to the emergency room after a fall. She said she lost her balance and fell, but she did not lose her consciousness. No syncope. Denies having any chest pain or shortness of breat h. No orthopnea or cough. No other complaints. Past Medical History: As outlined above in the HPI. Medications: Refer reconciliation sheet for detailed list. Allergies: CODEINE. Family History: No premature coronary artery disease or cancer. Social History: Does not smoke or drink. Does not use any drugs. Review of Systems: All systems reviewed are negative except as mentioned in HPI. Physical Examination: Vital Signs: Reviewed. Head and Neck: Pupils are equal and reactive to light. Intact eye movements. No JVD. No cervical lymphadenopathy. Neck: Supple. Thyroid is not enlarged. Lungs: Clear to auscultation bilaterally. No rhonchi, wheeze, or crackles. No accessory muscle use . Heart: Regular rate and rhythm. No extra sounds. Abdomen: Soft. Nontender. Bowel sounds positive. No organomegaly. No masses or hernia. No rigid ity or rebound. Extremities: No edema, clubbing, or cyanosis. Intact pulses. Skin: No rash noted. Neurologic: Alert, awake, oriented x3. No acute focal deficits appreciated. Investigations: Troponin 184 and then 88. BUN 11, creatinine 1.75. Hemoglobin 14.2. Assessment/recommendation: 1.Elevated troponin. No chest pain. The patient of mine at the office. I will review her records. If no stress test was done recently, we will plan for obtaining a Lexiscan nuclear stress test on h er and place and obtain an echocardiogram to further evaluate. Plan, we will follow accordingly. 2.Hypokalemia. Replace potassium and re-evaluate. 3.Dyslipidemia. Continue statin. Likely her elevated troponin is a demand ischemia. SR/MODL Voice ID: [id number] Report ID: [id number]
--- NOTE | 2023-12-10 07:36 | P.PN ---
Subjective Date of Service: 12/10/23 No reported chest pain, troponins trending down, plan for echocardiogram, - Physical Exam General: Alert, In no apparent distress, Oriented x3 HEENT: Atraumatic, Normocephalic Neck: Supple, 2+ carotid pulse no bruit Respiratory: Normal air movement, Other (88% on room air) Cardiovascular: No edema, Normal pulses, Regular rate/rhythm Capillary refill: <2 Seconds Gastrointestinal: Normal bowel sounds, Soft and benign Musculoskeletal: Other (Reports mid back pain, generalized weakness) Integumentary: No rashes, No breakdown Neurological: Normal speech, Normal strength at 5/5 x4 extr Review of Systems PER HPI Physical Examination - Vital Signs Temperature: 97.7 F Blood Pressure: 119/55 Pulse: 75 Respirations: 16 Pulse Ox (%): 96 Assessment And Plan - Plan Assessment plan NSTEMI acute Elevated troponin acute improving Elevated BNP acute Hypoxia acute Cardiology consult, telemetry, echo ordered Trend troponins, trend BNP Troponin 184, CT PE protocol negative for PE NIH stroke scale of 0, EKG 74 beats/min. Rhythm is regular, Normal Sinus Rhythm. QRS [place] is Normal. [place] interval is normal. QRS interval is normal. QT interval is normal. No Q waves. T waves are Normal. No ST changes noted. Clinical impression: Normal ECG, elevated troponin 18.1, , elevated BNP 490, repeat 720 CBC unremarkable Echocardiogram ordered by cardiology Fall acute Generalized weakness acute Fall precautions CT of the head negative for acute fracture PT eval, as needed analgesia Hypokalemia acute improved laboratory evaluation hypokalemia potassium 3.1, Trend electrolytes replace as needed History of Crohn's disease Recent admission for colitis Reports generalized weakness from poor appetite History of COPD stable History of dementia History of hypertension O2 2 L keep sats greater than 90% Resume appropriate home meds Full code DVT Lovenox 1 mg/kg Diet cardiac Disposition: assisted living Discharge Plan: Other (Assisted living) Plan to discharge in: 48 Hours - Code Status/Comfort Care Code Status: Full Code Critical Care: No Time Spent Managing PTS Care (In Minutes): 35
[2023-12-10] MEDS ORDERED: HOME MED 1 EA UNK (Omeprazole [Omeprazole] 20 MG Capsule.Dr) PO SCH (09:00)
[2023-12-10] MEDS: POTASSIUM CL SA 10 MEQ TAB PO ONE (09:13)
[2023-12-10] MEDS: PANTOPRAZOLE 40MG TABLET PO SCH (09:14)
[2023-12-10] MEDS ORDERED: ONDANSETRON 4 MG (ODT) TAB PO PRN (16:17)
[2023-12-10] MEDS: LOPERAMIDE HCL 2 MG CAPSULE PO ONE (16:30)
[2023-12-10] MEDS ORDERED: LOPERAMIDE HCL 2 MG CAPSULE PO PRN (17:00)
[2023-12-10] MEDS ORDERED: HYOSCYAMINE SULF 0.125 MG TAB PO PRN (17:00)
[2023-12-10] MEDS: VITAMIN D 5,000 UNIT CAP PO SCH (17:21)
[2023-12-10] MEDS: ONDANSETRON 4 MG/2 ML VIAL IV PRN (23:56)
[2023-12-11 00:25] VITALS: O2SAT 95
--- NOTE | 2023-12-11 03:26 | PN ---
Date of Progress Note: 12/10/2023 Subjective: Seen by bedside. Doing well. No further chest pain. Review of Systems: No chest pain, shortness of breath, orthopnea, cough, nausea, vomiting, diarrhea. All other systems reviewed are negative. Physical Examination: Vital Signs: Reviewed. Head and Neck: Pupils are equal, reactive to light. Intact eye movements. No JVD. No cervical lym phadenopathy. Neck is supple. Thyroid is not enlarged. Lungs: Clear to auscultation bilaterally. No rhonchi, rales, or crackles. No accessory muscle use. Heart: Regular rate and rhythm. No extra sounds. Abdomen: Soft, nontender. Bowel sounds positive. No organomegaly. No masses or hernia. No rigidi ty or rebound. Extremities: No clubbing, cyanosis. Intact pulses. Skin: No rash. Neurologic: Alert, awake. No acute focal deficits appreciated. Investigations: BUN 14, creatinine 0.95. Troponin is 57. Hemoglobin 13.4. Assessment And Recommendation: 1.Elevated troponin. Has no chest pain. This patient had a coronary angiogram in year [address] George, had very mild left circumflex disease about 20%. From cardiology standpoint, this patient c an be released. Her EF is normal on echo. No wall motion abnormalities. She does not have chest pa in. We will plan for outpatient stress test in the near future. 2.Dyslipidemia. Continue statin. 3.Hypokalemia. This is resolved. Cardiology will sign off and the patient can be followed up as an outpatient. SR/MODL Voice ID: [id number] Report ID: [id number]
[2023-12-11 05:06] LABS: Absolute Lymphocytes (CBC) 1.2 K/uL (0.7-4.9); Hematocrit 39.5 % (36.0-45.0); Lymphocytes % 15.1 % (15.3-44.8); MCV 98.7 fL (80-100); Platelets 179 thou/uL (152-406)
--- NOTE | 2023-12-11 06:52 | ECHO ---
HEIGHT: 5 ft 5 in WEIGHT: 111 lb 15.917 oz DATE OF STUDY: 12/10/[address]: Aby Sanchez BLOCK STACKER-C 2-DIMENSIONAL: YES M.MODE: YES DOPPLER: YES COLOR FLOW: YES TDS: PORTABLE: YES DEFINITY: BUBBLE STUDY: DIAGNOSIS: ELEVATED TROPONIN CARDIAC HISTORY: CATHERIZATION: SURGERY: PROSTHETIC VALVE: PACEMAKER: MEASUREMENTS (cm) DIASTOLIC (NORMALS) SYSTOLIC (NORMALS) IVSd 1.0 (0.6-1.2) LA Diam 2.7 (1.9-4.0) LVEF 74% LVIDd 4.2 (3.5-5.7) LVIDs 2.4 (2.0-3.5) %FS 42% LVPWd 0.9 (0.6-1.2) Ao Diam 3.3 (2.0-3.7) 2 DIMENSIONAL ASSESSMENT: RIGHT ATRIUM: NORMAL LEFT ATRIUM: NORMAL RIGHT VENTRICLE: NORMAL LEFT VENTRICLE: NORMAL TRICUSPID VALVE: MILD TRICUSPID REGURGITATION MITRAL VALVE: MILD MITRAL REGURGITATION PULMONIC VALVE: MILD PULMONIC INSUFFICIENCY AORTIC VALVE: MILD AORTIC INSUFFICIENCY PERICARDIAL EFFUSION: NONE AORTIC ROOT: NORMAL LEFT VENTRICULAR WALL MOTION: NORMAL DOPPLER/COLOR FLOW: SEE BELOW COMMENTS: 1. NORMAL LEFT VENTRICULAR EJECTION FRACTION 60-65% WITH NORMAL WALL MOTION 2. GRADE I DIASTOLIC DYSFUNCTION 3. MILD MITRAL REGURGITATION, AORTIC INSUFFICIENCY, TRICUSPID REGURGITATION, PULMONIC INSUFFICIENCY TECHNOLOGIST: CESAR RONQUILLO
--- NOTE | 2023-12-11 07:04 | P.PN ---
Subjective Date of Service: 12/11/23 No reported chest pain, troponins trending down, plan for echocardiogram, - Physical Exam General: Alert, In no apparent distress, Oriented x3 HEENT: Atraumatic, Normocephalic Neck: Supple, 2+ carotid pulse no bruit Respiratory: Normal air movement, Other (88% on room air) Cardiovascular: No edema, Normal pulses, Regular rate/rhythm Capillary refill: <2 Seconds Gastrointestinal: Normal bowel sounds, Soft and benign Musculoskeletal: Other (Reports mid back pain, generalized weakness) Integumentary: No rashes, No breakdown Neurological: Normal speech, Normal strength at 5/5 x4 extr Review of Systems per HPI Physical Examination - Vital Signs Temperature: 97.5 F Blood Pressure: 124/59 Pulse: 76 Respirations: 17 Pulse Ox (%): 95 Assessment And Plan - Plan Assessment plan NSTEMI acute Elevated troponin acute improving Elevated BNP acute Hypoxia acute Cardiology consult, telemetry, echo ordered Trend troponins, trend BNP Troponin 184, CT PE protocol negative for PE NIH stroke scale of 0, EKG 74 beats/min. Rhythm is regular, Normal Sinus Rhythm. QRS [place] is Normal. [place] interval is normal. QRS interval is normal. QT interval is normal. No Q waves. T waves are Normal. No ST changes noted. Clinical impression: Normal ECG, elevated troponin 18.1, , elevated BNP 490, repeat 720 CBC unremarkable Echocardiogram ordered by cardiology NORMAL LEFT VENTRICULAR EJECTION FRACTION 60-65% WITH NORMAL WALL MOTION 2. GRADE I DIASTOLIC DYSFUNCTION 3. MILD MITRAL REGURGITATION, AORTIC INSUFFICIENCY, TRICUSPID REGURGITATION, PULMONIC INSUFFICIENCY Fall acute Generalized weakness acute Fall precautions CT of the head negative for acute fracture PT eval, as needed analgesia Hypokalemia acute improved laboratory evaluation hypokalemia potassium 3.1, Trend electrolytes replace as needed History of Crohn's disease Recent admission for colitis Reports generalized weakness from poor appetite History of COPD stable History of dementia History of hypertension O2 2 L keep sats greater than 90% Resume appropriate home meds Full code DVT Lovenox 1 mg/kg Diet cardiac Disposition: assisted living
[2023-12-11] MEDS: MAGNESIUM GLYCINATE 100 MG PO SCH (09:00)
--- NOTE | 2023-12-11 10:19 | P.DS ---
Admission Date: 12/09/23 Discharge Date: 12/11/23 Disposition: TRANSFER TO INPATIENT REHAB Discharge Condition: GOOD Brief History of Present Illness: 78-year-old female with a past medical history of Crohn's disease, COPD, dementia, hypertension, presents to the emergency room with fall. She reports fall after losing her balance. She reports using a walker as baseline, reports residing in assisted living facility. She reports moderate generalized weakn ess, poor appetite from recent colitis admission, diagnosis. She denies hitting her head, reports mid back pain,, generalized weakness, no reported numbness tingling, she reports mild chest pressure 4 out of 10, nonradiating. She reports mild shortness of breath, no reported nausea vomiting diarrhea, cough, shortness of breath. Plan to admit for fall, dizziness, elevated troponin, hypoxia. CT PE protocol negative for PE, CT of the head negative for acute fracture, NIH stroke scale of 0, EKG 74 beats/min. Rhythm is regular, Normal Sinus Rhythm. QRS [place] is Normal. [place] interval is normal. QRS interval is normal. QT interval is normal. No Q waves. T waves are Normal. No ST changes noted. Clinical impression: Normal ECG, laboratory evaluation hypokalemia potassium 3.1, elevated troponin 1.84, elevated BNP 490, CBC unremarkable - Physical Exam General: Alert, In no apparent distress, Oriented x3 HEENT: Atraumatic, Normocephalic Neck: Supple, 2+ carotid pulse no bruit Respiratory: Normal air movement, Other (88% on room air) Cardiovascular: No edema, Normal pulses, Regular rate/rhythm Capillary refill: <2 Seconds Gastrointestinal: Normal bowel sounds, Soft and benign Musculoskeletal: Other (Reports mid back pain, generalized weakness) Integumentary: No rashes, No breakdown Neurological: Normal speech, Normal strength at 5/5 x4 extr Hospital Course: 78 year-old female patient presented with unsteady gait, fall. Was noted to have elevated troponin. Patient was evaluated by cardiology, per cardiology she has a normal echo, normal ejection fraction. No reported chest pain. She was evaluated by physical therapy. Condition improved with physical therapy, elevated troponins returned to normal. Patient tolerating diet, stable for discharge to home with follow-up appointment with primary care physician, follow-up with cardiology outpatient PROBLEM: Fall Elevated troponin Generalized weakness Continue home medicines as previously prescribed GOAL: Clear understanding of disease process Follow-up with Dr. Dejesus in 1 to 2 weeks Resume home blood pressure medications New prescription 81 mg aspirin INSTRUCTIONS: Physician Discharge Instructions: -Follow-up with PCP in 1 to 2 weeks -Please call Dr. Lim at [phone] if any questions regarding hospital stay -Please call nursing station at [phone] if any nursing or medication questions -Return to the emergency room if symptoms worsen Diet: ADA, low sodium Activity: Fall precautions Vital Signs/Physical Exam: Temp Pulse Resp BP Pulse Ox 97.5 F 76 17 124/59 L 95 12/11/23 07:18 12/11/23 07:18 12/11/23 07:18 12/11/23 07:18 12/11/23 07:18 Laboratory Data at Discharge: WBC 8.20 thou/uL (4.3-10.9) 12/11/23 04:16 Hgb 13.5 g/dL (12.0-15.0) 12/11/23 04:16 Hct 39.5 % (36.0-45.0) 12/11/23 04:16 Plt Count 179 thou/uL (152-406) 12/11/23 04:16 PT 11.3 SECONDS (9.5-12.5) 12/09/23 06:29 INR 1.03 12/09/23 06:29 Sodium 140 mEq/L (136-145) 12/11/23 04:16 Potassium 4.0 mEq/L (3.5-5.1) 12/11/23 04:16 BUN 18 mg/dL (7-18) 12/11/23 04:16 Creatinine 0.93 mg/dL (0.55-1.02) 12/11/23 04:16 Glucose 102 mg/dL (74-106) 12/11/23 04:16 Magnesium 2.0 mg/dL (1.6-2.4) 12/11/23 04:16 Total Bilirubin 0.3 mg/dL (0.2-1.0) 12/09/23 06:29 AST 23 U/L (15-37) 12/09/23 06:29 ALT 26 U/L (13-56) 12/09/23 06:29 Alkaline Phosphatase 60 U/L (45-117) 12/09/23 06:29 Triglycerides 85 mg/dL (<150) 12/10/23 02:00 Cholesterol 187 mg/dL (<200) 12/10/23 02:00 HDL Cholesterol 72 mg/dL (40-60) H 12/10/23 02:00 Cholesterol/HDL Ratio 2.60 12/10/23 02:00 Home Medications: Ciprofloxacin HCl [Cipro 500 MG Tablet] 500 mg PO DAILY 10 Days #10 tab 12/08/23 Donepezil HCl 10 mg PO BEDTIME 12/08/23 Memantine HCl 10 mg PO DAILY 12/08/23 Omeprazole 20 mg PO DAILY 12/08/23 Ondansetron [Zofran (Odt)*] 4 mg PO Q6H PRN #15 tab 12/08/23 Simvastatin 5 mg PO BEDTIME 12/08/23 metroNIDAZOLE [Flagyl*] 500 mg PO Q8H 10 Days #30 tab 12/08/23 predniSONE [Deltasone*] 10 mg PO DAILY 12/08/23 Cholecalciferol (Vitamin D3) [Vitamin D 5,000 IU Cap*] 1 tab PO DAILY 12/09/23 Hyoscyamine Sulfate [Levsin TAB*] 0.125 mg PO PRN 12/09/23 Loperamide [Imodium*] 2 mg PO PRN 12/09/23 Magnesium Glycinate 100 mg PO DAILY 12/09/23 Aspirin [Aspirin EC 81 MG] 81 mg PO DAILY #30 tab 12/10/23 New Medications: Aspirin [Aspirin EC 81 MG] 81 mg PO DAILY #30 tab Physician Discharge Instructions: -DC IV and DC home with inpatient rehab -Follow-up with PCP in 1 to 2 weeks -Follow-up with Cardiology in 1 to 2 weeks -Please call Dr. Lim at [phone] if any questions regarding hospital stay -Please call nursing station at [phone] if any nursing or medication questions -Return to the emergency room if symptoms worsen Diet: AHA Activity: Fall precautions Followup: Lonnie Gonzales, [Primary Care Provider] - 1-2 Weeks Rudy Dejesus MD [ACTIVE - CAN ADMIT] - 1-2 Weeks Time spent managing pt's care (in minutes): 55
[2023-12-11 16:29] VITALS: BP 134/69; TEMP 98.5
--- NOTE | 2023-12-12 16:09 | EKG ---
Test Date: 2023-12-11 Test Time: 07:30:45 Loom Blower: LISA MEASUREMENT RESULTS: Intervals: Rate: 74 TX: 184 QRSD: 84 QT: 392 QTc: 435 [place]: P: 27 [place]: 184 QRS: 11 T: 55 INTERPRETIVE STATEMENTS: Normal sinus rhythm Normal ECG Compared to ECG 12/09/2023 06:28:47 Myocardial infarct finding no longer present Electronically Signed On 12-12-23 16:05:16 VENDOR SPECIALIST by Rudy Dejesus
--- NOTE | 2023-12-12 16:19 | EKG ---
Test Date: 2023-12-09 Test Time: 06:28:47 Meat Stuffer: SUHA MEASUREMENT RESULTS: Intervals: Rate: 74 MO: 190 QRSD: 88 QT: 406 QTc: 450 [place]: P: 57 MO: 190 QRS: 49 T: 62 INTERPRETIVE STATEMENTS: Normal sinus rhythm Possible Anterior infarct, age undetermined Abnormal ECG Compared to ECG 04/15/2023 12:42:55 Myocardial infarct finding now present ST (T wave) deviation no longer present Electronically Signed On 12-12-23 16:08:47 LATHE SCALPER OPERATOR by Rudy Dejesus
== END 2023-12-11 20:04 | DRG 282 ==
LOC: ER 06:10 → ERHOLD 08:53 → 2ND 19:30
PROVIDERS: ADMIT Hospitalist; ATTEND Hospitalist
DX: I21.4 Non-ST elevation (NSTEMI) myocardial infarction (principal); I10 Essential (primary) hypertension; E87.6 Hypokalemia; E78.5 Hyperlipidemia, unspecified; K21.9 Gastro-esophageal reflux disease without esophagitis; J44.9 Chronic obstructive pulmonary disease, unspecified; F03.90 Unspecified dementia, unspecified severity, without behavioral disturbance, psychotic disturbance, mood disturbance, and anxiety; R09.02 Hypoxemia; Z88.5 Allergy status to narcotic agent; Z60.2 Problems related to living alone; Z90.49 Acquired absence of other specified parts of digestive tract; Z79.52 Long term (current) use of systemic steroids; Z28.310 Unvaccinated for COVID-19; Z90.710 Acquired absence of both cervix and uterus; Z79.899 Other long term (current) drug therapy; W19.XXXA Unspecified fall, initial encounter; Y93.89 Activity, other specified; Y92.099 Unspecified place in other non-institutional residence as the place of occurrence of the external cause; Y99.9 Unspecified external cause status
CPT/HCPCS: 36415; 70450; 71250; 71275; 72125; 80048; 80061; 80076; 81003; 83735; 83880; 84484; 85025; 85610; 92610; 93005; 93306; 97112; 97116; 97161; 97530; 99285; J1650; J1940; J2270; J2405; Q9967